=== PATIENT | female | born 1950 | race African-American/Black ===

== ENCOUNTER 2018-05-19 08:14 | Inpatient (IN) | payer OTHER ==
--- NOTE | 2018-05-19 08:30 | PDOC ---
History of Present Illness - General Chief Complaint: Shortness of Breath Stated Complaint: COPD Time Seen by Provider: 05/19/18 08:17 - History of Present Illness Initial Comments: 05/19/18 08:53 The patient is a 67 year old female with a history of COPD, Breast CA, Lung CA, Gastric Ulcers who presents for evaluation of shortness of breath. The patient is accompanied by her who assists in providing the history. He notes that the patient began having worsening difficulty breathing with associated non -productive cough over the past 24 hours prompting them to call EMS. On EMS arrival, the patient had an O2 sat of 92% and proceeded to desaturate to low 80s. She was placed on CPAP and given 1 duoneb and decadron with her Sats coming up to 86%. On arrival to the ED, the patient was tripoding and not following commands. However, her mental status improved after being placed on BIPAP. They otherwise deny fevers, chills, chest pain, nausea, vomiting, abdominal pain, or changes with urination or bowel movements. Past History - Past Medical History Allergies/Adverse Reactions: Allergies Allergy/AdvReac Type Severity Reaction Status Date / Time No Known Allergies Allergy Verified 05/19/18 08:28 Home Medications: Ambulatory Orders Salmeterol/Fluticasone [Advair 250Mcg/50Mcg] 1 inh PO BID 03/16/12 Albuterol 0.083% Nebulizer Bhavana [Ventolin 0.083% Nebulizer Soln -] 1 amp NEB PRN PRN 05/19/18 Amlodipine Besylate [Norvasc -] 5 mg PO DAILY 05/19/18 Cancer: Yes (RIGHT BREAST, RIGHT LUNG) COPD: Yes CHF: No Diabetes: No GI Disorders: Yes HTN: No Hypercholesterolemia: No - Surgical History Abdominal Surgery: Yes (RUPTURED ULCER) - Suicide/Smoking/Psychosocial Hx Smoking Status: Yes Smoking History: Never smoked Have you smoked in the past 12 months: No Number of Cigarettes Smoked Daily: 0 Information on smoking cessation initiated: No Review of Systems - Review of Systems Comments:: 05/19/18 09:15 Constitutional: Fatigue. No fevers, chills, malaise HEENT: No Rhinorrhea, nasal congestion, visual changes Cardiovascular: No chest pain, syncope, palpitations, lightheadedness Respiratory: Cough, SOB. No Hemoptysis, Gastrointestinal: No Abdominal pain, Nausea, Vomiting, Constipation, Diarrhea, Melena Genitourinary: No Dysuria, Frequency, Urgency, Hesitancy, Hematuria, Flank pain Musculoskeletal: No Myalgia, arthralgia Skin: No rashes, itching, bruising, pallor Neurologic: No Headache, Dizziness, Numbness, Weakness, or Tingling Psychiatric: No Hallucinations. No SI or HI *Physical Exam - Vital Signs Last Vital Signs Temp Pulse Resp BP Pulse Ox 98.9 F 126 H 44 H 143/108 H 100 05/19/18 08:16 05/19/18 08:16 05/19/18 08:16 05/19/18 08:16 05/19/18 08:16 - Physical Exam Comments: 05/19/18 09:15 General Appearance: Nourished. In Apparent Distress HEENT: EOMI, YUN. No Pharyngeal Erythema, Tonsillar Exudate, Tonsillar Erythema Neck: No Cervical Lymphadenopathy Respiratory/Chest: Decreased breath sounds bilaterally with poor air movement and expiratory wheezing on exam. Cardiovascular: Regular Rhythm, Tachycardic Rate. No Murmur, Gallops, Rubs Gastrointestinal/Abdominal: Normal Bowel Sounds, Soft. No Guarding, Rebound, Tenderness Musculoskeletal: No CVA Tenderness Extremity: Normal Capillary Refill Integumentary: Normal Color, Dry, Warm Neurologic: Fully Oriented, Alert, Normal Mood/Affect, Normal Response, Moderate Sedation - Procedure Monitoring Vital Signs: Procedure Monitoring Vital Signs Temperature 98.9 F 05/19/18 08:16 Pulse Rate 126 H 05/19/18 08:16 Respiratory Rate 44 H 05/19/18 08:16 Blood Pressure 143/108 H 05/19/18 08:16 O2 Sat by Pulse Oximetry (%) 100 05/19/18 08:16 Heart Score/ECG Review #1 05/19/18 09:16 Sinus Tachycardia Right Atrial Enlargement HR 113 No Acute Ischemic Changes ED Treatment Course - LABORATORY CBC & Chemistry Diagram: 05/19/18 08:18 05/19/18 08:18 Medical Decision Making - Critical Care Time Total Critical Care Time (minutes): 75 Critical Care Statement: The care of this patient involved high complexity decision making to prevent further life threatening deterioration of the patient 's condition and/or to evaluate & treat vital organ system(s) failure or risk of failure. - Medical Decision Making 05/19/18 09:20 The patient is a 67 year old female with a history of COPD, Breast CA, Lung CA, Gastric Ulcers who presents for evaluation of shortness of breath. Differential includes but is not limited to: COPD exacerbation, Pneumonia, ACS, Infectious, Metabolic derangement. Given the patient's history and physical exam, we will obtain a cbc, cmp, troponin, vbg, lactate, blood cultures, ua, urine cultures, chest plain film, ekg. The patient has improved on bipap here in the ED, but continues to require close monitoring. Chest plain film demonstrates bilateral infiltrates as preliminarily read by ED physician. CBC demonstrates a wbc to 22. CMP, ua is unremarkable. VBG demonstrates a ph of 7.10 and pco2 of 99. We will treat the patient with mag, continues nebs, azithromycin, ceftriaxone, iv fluids. The patient will require ICU admission for further monitoring and management. *DC/Admit/Observation/Transfer Diagnosis at time of Disposition: Respiratory distress COPD (chronic obstructive pulmonary disease) Qualifiers: COPD type: unspecified COPD Qualified Code(s): J44.9 - Chronic obstructive pulmonary disease, unspecified Pneumonia Qualifiers: Pneumonia type: due to unspecified organism Laterality: bilateral Lung location : unspecified part of lung Qualified Code(s): J18.9 - Pneumonia, unspecified organism - Discharge Dispostion Condition at time of disposition: Guarded Decision to Admit order: Yes - Referrals - Patient Instructions - Post Discharge Activity
[2018-05-19] MEDS ORDERED: MAGNESIUM SULF 50% (8.12 MEQ/2 ML-1 GM VIAL) IVPB ONE (08:31)
[2018-05-19] MEDS ORDERED: ALBUTEROL SO4 2.5/IPRATROPIUM 0.5 INH SOL 3 ML VIAL.NEB. NEB ONE ×3 (08:31→09:14)
[2018-05-19 08:43] LABS: VENOUS PC02 99.5 mmHg (38-52); VENOUS PH 7.1 (7.32-7.42); VENOUS PO2 90.7 mmHg (28-48)
[2018-05-19 08:45] LABS: URINE APPEARANCE CLEAR; URINE BILIRUBIN NEGATIVE (<2.0 mg/dL); URINE COLOR YELLOW; URINE GLUCOSE (UA) NEGATIVE (NEGATIVE); URINE KETONE TRACE (NEGATIVE); URINE LEUK ESTERASE NEGATIVE (NEGATIVE); URINE NITRITE NEGATIVE (NEGATIVE); URINE PROTEIN 2+ (NEGATIVE); URINE UROBILINOGEN NEGATIVE mg/dL (0.2-1.0)
[2018-05-19 08:47] LABS: BASO % 0.1 % (0-2.0); HEMOGLOBIN 13.4 GM/dL (10.7-15.3); LYMPH % 1.6 % (8-40); MCH 27.4 pg (25.7-33.7); MCHC 32.7 g/dl (32.0-36.0); MEAN CELL VOLUME 83.8 fl (80-96); MEAN PLT VOLUME 10.3 fl (7.5-11.1); MONO % 7.1 % (3.8-10.2); NEUT % 91.2 % (42.8-82.8); PLATELET COUNT 205 K/MM3 (134-434); RBC 4.89 M/mm3 (3.60-5.2); RDW 15.6 % (11.6-15.6); WHITE BLOOD COUNT 22.4 K/mm3 (4.0-10.0)
[2018-05-19 08:50] LABS: URINE MUCUS RARE
[2018-05-19] MEDS ORDERED: AZITHROMYCIN IVPB 500 MG in DEXTROSE 5%-WATER - 250 ML IVPB ONE (08:51)
[2018-05-19] MEDS ORDERED: CEFTRIAXONE 1 GM in DEXTROSE 5%-WATER - 100 ML IVPB ONE (08:51)
--- NOTE | 2018-05-19 08:52 | PDOC ---
Attending Attestation - HPI HPI: 05/19/18 08:58 The patient is a 67-year-old female, with a past medical history of COPD, RT lung and breast CA (not on chemotherapy), who was BIBA for respiratory distress. is at bedside providing the history. He states that the patient was experiencing difficulty breathing and a nonproductive cough for the past day. EMS was called when the patient's symptoms worsened this morning. Allergies: NKA <Venessa Faye - Last Filed: 05/19/18 09:41> - Resident Resident Name: Dhruv Dias - ED Attending Attestation I have performed the following: I have examined & evaluated the patient, The case was reviewed & discussed with the resident, I agree w/resident's findings & plan, Exceptions are as noted - Physicial Exam PE: 05/19/18 09:30 Patient seen and evaluated upon arrival. Patient is somnolent, leaning forward; arousable to sternal rub; follows simple commands. Patient is tachycardic and hypertensive with oxygen saturation of 86% on BiPAP provided by EMS with FiO2 of 100%. Normocephalic, atraumatic No scleral icterus, conjunctivae were pink No JVD Patient is tachypneic and dyspneic; extremely limited air entry bilaterally is noted, with intermittent rhonchi at the bases; Tachycardic, regular Minimal lower extremity edema bilaterally - Critical Care Time Total Critical Care Time: 75 Critical Care Statement: The care of this patient involved high complexity decision making to prevent further life threatening deterioration of the patient 's condition and/or to evaluate & treat vital organ system(s) failure or risk of failure. - Medical Decision Making 05/19/18 09:35 67-year-old female with severe COPD presents with signs and symptoms of acute COPD exacerbation likely precipitated by an acute infectious process. Patient has received a Combivent and 10 mg IV Decadron prior to arrival. We'll administer magnesium sulfate IV; we'll administer Combivent 2, followed by albuterol when necessary and Atrovent every 4 hours. Will obtain chest x-ray. Will obtain EKG. Will obtain blood gas and will place on end-tidal CO2. Will reassess. 05/19/18 09:46 Patient stabilized on BiPAP with FiO2 of 80% maintaining oxygen saturation of 96 %. BiPAP settings or 16/6 with respiratory of 20; chest x-ray reveals bilateral infiltrates; EKG reveals sinus tachycardia with right atrial enlargement without evidence of acute ischemia. VBG reveals severe hypercapnia with pCO2 of 90. CBC reveals significant leukocytosis of 22K with predominance of neutrophils. Will decrease FiO2 to 60%. Will obtain repeat ABG to evaluate for changes in hypercapnia. Will cover with ceftriaxone and Zithromax for community- acquired pneumonia. Will also cover with Tamiflu. We'll consider intubation if pCO2 worsens. Will admit to the ICU. 05/19/18 10:41 PH and pCO2 improving. Patient able to speak short phrases currently. Air entry improved minimally. iv abx adminsitered. Will continue with the current plan. Patient admitted to the ICU. Awaiting transfer. <Hayden Zaldivar - Last Filed: 05/19/18 10:42> Attestations - Attestations 05/19/18 09:01 Documentation prepared by Venessa Faye, acting as medical record transcriber for Hayden Zaldivar MD. <Venessa Faye - Last Filed: 05/19/18 09:41>
[2018-05-19] MEDS ORDERED: AZITHROMYCIN IVPB 500 MG/250 ML BAG IVPB ONE (08:55)
[2018-05-19] MEDS ORDERED: CEFTRIAXONE 1 GM/50 ML BAG ONE (08:56)
[2018-05-19 08:57] LABS: INR 1.25 (0.83-1.09); PROTHROMBIN TIME (PATIENT) 14.8 SEC (9.7-13.0)
[2018-05-19 08:59] LABS: ACTIVATED PTT 32.4 SECONDS (25.2-36.5)
[2018-05-19 09:24] LABS: ALBUMIN 3.8 g/dl (3.4-5.0); ALK PHOS 52 U/L (45-117); ANION GAP 7 MMOL/L (8-16); BILIRUBIN,TOTAL 0.6 mg/dL (0.2-1); BLOOD UREA NITROGEN 16 mg/dL (7-18); CALCIUM 8.6 mg/dL (8.5-10.1); CHLORIDE 101 mmol/L (98-107); CO2 29 mmol/L (21-32); CREATININE 0.7 mg/dL (0.55-1.3); GLUCOSE,RANDOM 190 mg/dL (74-106); POTASSIUM 3.8 mmol/L (3.5-5.1); SGOT/AST 23 U/L (15-37); SGPT/ALT 13 U/L (13-61); SODIUM 136 mmol/L (136-145); TOT PROT 7.4 g/dl (6.4-8.2)
[2018-05-19] MEDS ORDERED: SODIUM CHLORIDE 1,000 ML IV STA (09:33)
[2018-05-19] MEDS ORDERED: OSELTAMIVIR PHOSPHATE 30 MG CAPSULE PO ONE (09:42)
[2018-05-19 09:45] LABS: ANISOCYTOSIS 0; MACROCYTOSIS 0; PLATELET ESTIMATE NORMAL
[2018-05-19] MEDS ORDERED: OSELTAMIVIR PHOSPHATE 75 MG CAPSULE ONE (10:01)
[2018-05-19] MEDS ORDERED: OSELTAMIVIR PHOSPHATE 75 MG CAPSULE PO ONE (10:02)
[2018-05-19 10:30] LABS: ARTERIAL BLOOD GAS PO2 69.6 mmHg (80-100)
[2018-05-19 10:31] LABS: ARTERIAL BLD GAS O2 SATURATION 87.8 % (90-98.9)
[2018-05-19 10:32] LABS: ALLENS TEST POSITIVE
[2018-05-19 10:35] LABS: ARTERIAL BLOOD GAS pH 7.17 (7.35-7.45)
[2018-05-19] MEDS ORDERED: ALBUTEROL SO4 2.5/IPRATROPIUM 0.5 INH SOL 3 ML VIAL.NEB. NEB SCH ×2 (10:45→11:45)
[2018-05-19] MEDS ORDERED: SODIUM CHLORIDE 1,000 ML IV SCH (10:45)
--- NOTE | 2018-05-19 10:51 | CONSULT ---
Consult Consult Specialty:: Pulm/CCM Referred by:: Dr. Zaldivar Reason for Consultation:: Respiratory distress - History of Present Illness Chief Complaint: shortness of breath History of Present Illness: 67F history of COPD, PNA, previous intubation, Breast and Lung Ca, history of gastric ulcer with perforation, presents to the ER BIBA for shortness of breath and difficulty breathing. Patient states for the past couple of days she has had getting progressively worsening shortness of breath. She states she started to develop a cough last night with some minimal sputum production. Patient's and daughter at bedside and provide some history but patient is able to to communicate her history. She was placed in BiPAP in the ER. Patient remains in respiratory distress and is still tripoding despite bronchodilators, O2 support via BiPAP, steroids, and ABx. Per ER patient was lethargic upon arrival which improved with BiPAP. She was found to have bilateral infiltrate on CXR. She denies nausea, vomiting, fevers, chills, chest pain, urinary of GI symptoms. On ABG she was noted to be hypercapneic and hypoxic. ICU called for evaluation due to concern for possible impending intubation. Per patient and family she is a full code. Complaining about discomfort of BiPAP mask. 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 Breast Surgery. Ex-Lap - Alcohol/Substance Use Hx Alcohol Use: No History of Substance Use: reports: None - Smoking History Smoking history: Former smoker (quit about 15 years ago) Have you smoked in the past 12 months: No Aproximately how many cigarettes per day: 0 Home Medications - Allergies Allergies/Adverse Reactions: Allergies Allergy/AdvReac Type Severity Reaction Status Date / Time No Known Allergies Allergy Verified 05/19/18 08:28 - Home Medications Home Medications: Ambulatory Orders Salmeterol/Fluticasone [Advair 250Mcg/50Mcg] 1 inh PO BID 03/16/12 Albuterol 0.083% Nebulizer Bhavana [Ventolin 0.083% Nebulizer Soln -] 1 amp NEB PRN PRN 05/19/18 Amlodipine Besylate [Norvasc -] 5 mg PO DAILY 05/19/18 Family Disease History - Family Disease History Family Disease History: Other: Father (stroke) Review of Systems - Review of Systems Constitutional: reports: Lethargy, Loss of Appetite, Malaise Eyes: reports: No Symptoms HENT: reports: No Symptoms Neck: reports: No Symptoms Cardiovascular: reports: Shortness of Breath Respiratory: reports: SOB, SOB on Exertion Gastrointestinal: reports: No Symptoms Genitourinary: reports: No Symptoms Breasts: reports: See HPI Endocrine: reports: No Symptoms Hematology/Lymphatic: reports: No Symptoms Physical Exam Vital Signs: Vital Signs Temperature 98.9 F 05/19/18 08:41 Pulse Rate 118 H 05/19/18 10:26 Respiratory Rate 16 05/19/18 10:26 Blood Pressure 140/95 05/19/18 10:26 O2 Sat by Pulse Oximetry (%) 95 05/19/18 10:26 Constitutional: Yes: Moderate Distress (respiratory distress) Eyes: Yes: EOM Intact, PERRL HENT: Yes: Atraumatic Neck: Yes: Supple, Trachea Midline Cardiovascular: Yes: Tachycardia Respiratory: Yes: Diminished, On BiPap, Rhonchi (bilaterally) Gastrointestinal: Yes: WNL, Normal Bowel Sounds, Soft. No: Tenderness Edema: No Neurological: Yes: Alert, Oriented Labs: CBC, BMP 05/19/18 08:18 05/19/18 08:18 Imaging - Results Chest X-ray: Report Reviewed, Image Reviewed (left base infiltrate with some effusion.) Cat Scan: Report Reviewed, Image Reviewed (from 02/19/2009) Assessment/Plan 67F with multiple medical problems presents to the ER for shortness of breath found to be in acute hypoxic/hypercapneic respiratory failure secondary to pneumonia. Problem List: Acute hypoxic/hypercapneic Respiratory Failure on BiPAP sepsis secondary to Bilateral PNA COPD exacerbation secondary to pneumonia-history of intubation history of Breast Ca s/p lumpectomy History of Lung Ca s/p right thorocotomy HTN History of perforated gastric ulcer Plan: Admit to ICU for close respiratory and hemodynamic monitoring If patient gets tired from tachypnea may require intubation patient became hypotensive upon arrival to ICU will bolus 30ml/kg and if no response despite IVF may require central line and pressors Solu-Medrol Ceftriaxone/Azithromycin HSQ PPI BCx UCx Sputum Cx NPO while on BiPAP Repeat ABG Keep SPO2 88-92% Urinary antigens for pneumonia ID consult CT chest when HD stable Case discussed with Dr. Harris CCTime 35min
[2018-05-19] MEDS ORDERED: ALBUTEROL SO4 2.5/IPRATROPIUM 0.5 INH SOL 3 ML VIAL.NEB. NEB PRN (10:56)
--- NOTE | 2018-05-19 11:13 | HP ---
CHIEF COMPLAINT: SOB PCP: Dr García in [place] HISTORY OF PRESENT ILLNESS: The patient is a 67 year old female with a significant PMH of COPD on 2 L Oxygen at home, h/o of intubation for COPD, HTN, left sided lung Ca, s/p surgery 2013, right breast Ca, s/p radiation in 2009 BIBA for SOB and cough for few days that got worse yesterday. She reports productive cough since yesterday , bringing up "pinkish" sputum, and worsened shortness of breath overnight. EMS on arrival found her to have AMS, hypoxic to 80s, she was given Duonebs, 10 mg of Decadron and placed on CPAP. Upon arrival to ED, she was given Mag, Tamiflu, duonebs, Ceftriaxone/AZT, BiPap wth improvement of Oxygen Sat to 95% and mental status. History was taken partially from the patient and from her and daughter that were present at bedside. She denied fever, chills, sick contacts, chest pain, N/V, dysuria, no flu vaccine this season. ER course was notable for: (1)Mg, AZT, Ceftriaxone (2)CXR (3)WBC 22.4 PAST MEDICAL HISTORY: as above PAST SURGICAL HISTORY: brain aneurysm-s/p clip 1999, gastric perforation 1981, Social History: Smoking:smoked "a lot", quit 15 years ago Alcohol:occasional alcohol Drugs:no drugs Lives with , 1 daughter Family History: mother: brain aneurysm father: stroke daughter: healthy Allergies No Known Allergies Allergy (Verified 05/19/18 08:28) HOME MEDICATIONS: Home Medications Medication Instructions Recorded Salmeterol/Fluticasone [Advair 1 inh PO BID 03/16/12 250Mcg/50Mcg] Albuterol 0.083% Nebulizer Bhavana 1 amp NEB PRN PRN 05/19/18 [Ventolin 0.083% Nebulizer Soln -] Amlodipine Besylate [Norvasc -] 5 mg PO DAILY 05/19/18 REVIEW OF SYSTEMS CONSTITUTIONAL: Absent: fever, chills, diaphoresis, generalized weakness, malaise HEENT: Absent: rhinorrhea, nasal congestion, throat pain CARDIOVASCULAR: Absent: chest pain, syncope, palpitations, irregular heart rate, lightheadedness , peripheral edema RESPIRATORY: cough, shortness of breath Absent: dyspnea with exertion, orthopnea GASTROINTESTINAL: Absent: abdominal pain, abdominal distension, nausea, vomiting, diarrhea, constipation GENITOURINARY: Absent: dysuria, frequency, urgency, hesitancy, hematuria MUSCULOSKELETAL: Absent: myalgia, arthralgia, SKIN: Absent: rash, itching, pallor ENDOCRINE: Absent: unexplained weight gain, unexplained weight loss NEUROLOGIC: Absent: headache, focal weakness or paresthesias, dizziness PHYSICAL EXAMINATION Vital Signs - 24 hr 05/19/18 05/19/18 05/19/18 08:16 08:30 08:38 Temperature 98.9 F 98.9 F Pulse Rate 126 H 123 H Pulse Rate [ 115 H Left Apical] Respiratory 44 H 26 H Rate Blood Pressure 143/108 H Blood Pressure 118/86 [Right Arm] O2 Sat by Pulse 100 97 99 Oximetry (%) 05/19/18 05/19/18 05/19/18 08:41 09:16 10:26 Temperature 98.9 F Pulse Rate 115 H Pulse Rate [ 117 H 118 H Left Apical] Respiratory 22 H 16 16 Rate Blood Pressure 118/86 Blood Pressure 100/76 140/95 [Right Arm] O2 Sat by Pulse 99 96 95 Oximetry (%) GENERAL: Awake, alert, and fully oriented, in moderate acute distress, sitting on bed, on BiPap. HEAD: Normal with no signs of trauma. EYES: Pupils equal, round and reactive to light, extraocular movements intact, sclera anicteric, conjunctiva clear. EARS, NOSE, THROAT: On Bi-Pap mask NECK: Normal range of motion, supple without lymphadenopathy, JVD, or masses. LUNGS: Diminished breath sounds, +wheezes, rhonchi bilaterally + accessory muscle use. HEART: Regular rate and rhythm, normal S1 and S2 without murmur, rub or gallop. ABDOMEN: Soft, nontender, not distended, normoactive bowel sounds, no guarding. MUSCULOSKELETAL: Normal range of motion at all joints. No bony deformities or tenderness. LOWER EXTREMITIES: 2+ pulses, no peripheral edema. NEUROLOGICAL: Non focal, normal speech, no facial asymmetry. PSYCHIATRIC: Cooperative. Good eye contact. Appropriate mood and affect. SKIN: Warm, dry, normal turgor, no rashes, horizontal scar on right side of the chest, well healed. Laboratory Results - last 24 hr 05/19/18 05/19/18 05/19/18 08:18 08:18 08:18 WBC 22.4 H RBC 4.89 Hgb 13.4 Hct 41.0 MCV 83.8 MCH 27.4 MCHC 32.7 RDW 15.6 Plt Count 205 MPV 10.3 Absolute Neuts (auto) 20.4 H Neutrophils % 91.2 H Neutrophils % (Manual) 61.2 Band Neutrophils % 30.6 Lymphocytes % 1.6 L Lymphocytes % (Manual) 0.0 L Monocytes % 7.1 Monocytes % (Manual) 3 L Eosinophils % 0.0 Eosinophils % (Manual) 0.0 Basophils % 0.1 Basophils % (Manual) 0.0 Myelocytes % (Man) 0 Promyelocytes % (Man) 0 Blast Cells % (Manual) 0 Nucleated RBC % 0 Metamyelocytes 4 H Hypochromia 0 Platelet Estimate Normal Polychromasia 0 Poikilocytosis 0 Anisocytosis 0 Microcytosis 0 Macrocytosis 0 PT with INR 14.80 H INR 1.25 H PTT (Actin FS) 32.4 Anticoagulation Therapy Puncture Site ABG pH ABG pCO2 at Pt Temp ABG pO2 at Pt Temp ABG HCO3 ABG O2 Sat (Measured) ABG O2 Content ABG Base Excess Bj Test VBG pH 7.10 L* POC VBG pCO2 99.5 H* POC VBG pO2 90.7 H Mixed VBG HCO3 29.3 H Methemoglobin O2 Delivery Device Oxygen Flow Rate Vent Mode Vent Rate Mechanical Rate Pressure Support Vent Sodium Potassium Chloride Carbon Dioxide Anion Gap BUN Creatinine Creat Clearance w eGFR Random Glucose Lactic Acid Calcium Total Bilirubin AST ALT Alkaline Phosphatase Troponin I Total Protein Albumin Urine Color Urine Appearance Urine pH Ur Specific [place] Urine Protein Urine Glucose (UA) Urine Ketones Urine Blood Urine Nitrite Urine Bilirubin Urine Urobilinogen Ur Leukocyte Esterase Urine WBC (Auto) Urine RBC (Auto) Urine Mucus Influenza A (Rapid) Influenza B (Rapid) 05/19/18 05/19/18 05/19/18 08:18 08:18 08:30 WBC RBC Hgb Hct MCV MCH MCHC RDW Plt Count MPV Absolute Neuts (auto) Neutrophils % Neutrophils % (Manual) Band Neutrophils % Lymphocytes % Lymphocytes % (Manual) Monocytes % Monocytes % (Manual) Eosinophils % Eosinophils % (Manual) Basophils % Basophils % (Manual) Myelocytes % (Man) Promyelocytes % (Man) Blast Cells % (Manual) Nucleated RBC % Metamyelocytes Hypochromia Platelet Estimate Polychromasia Poikilocytosis Anisocytosis Microcytosis Macrocytosis PT with INR INR PTT (Actin FS) Anticoagulation Therapy Puncture Site ABG pH ABG pCO2 at Pt Temp ABG pO2 at Pt Temp ABG HCO3 ABG O2 Sat (Measured) ABG O2 Content ABG Base Excess Bj Test VBG pH POC VBG pCO2 POC VBG pO2 Mixed VBG HCO3 Methemoglobin O2 Delivery Device Oxygen Flow Rate Vent Mode Vent Rate Mechanical Rate Pressure Support Vent Sodium 136 Potassium 3.8 Chloride 101 Carbon Dioxide 29 Anion Gap 7 L BUN 16 Creatinine 0.7 Creat Clearance w eGFR > 60 Random Glucose 190 H Lactic Acid 1.7 Calcium 8.6 Total Bilirubin 0.6 AST 23 ALT 13 Alkaline Phosphatase 52 Troponin I < 0.02 Total Protein 7.4 Albumin 3.8 Urine Color Yellow Urine Appearance Clear Urine pH 5.0 Ur Specific [place] 1.024 Urine Protein 2+ H Urine Glucose (UA) Negative Urine Ketones Trace H Urine Blood 2+ H Urine Nitrite Negative Urine Bilirubin Negative Urine Urobilinogen Negative Ur Leukocyte Esterase Negative Urine WBC (Auto) 1 Urine RBC (Auto) 2 Urine Mucus Rare Influenza A (Rapid) Influenza B (Rapid) 05/19/18 05/19/18 09:51 09:55 WBC RBC Hgb Hct MCV MCH MCHC RDW Plt Count MPV Absolute Neuts (auto) Neutrophils % Neutrophils % (Manual) Band Neutrophils % Lymphocytes % Lymphocytes % (Manual) Monocytes % Monocytes % (Manual) Eosinophils % Eosinophils % (Manual) Basophils % Basophils % (Manual) Myelocytes % (Man) Promyelocytes % (Man) Blast Cells % (Manual) Nucleated RBC % Metamyelocytes Hypochromia Platelet Estimate Polychromasia Poikilocytosis Anisocytosis Microcytosis Macrocytosis PT with INR INR PTT (Actin FS) Anticoagulation Therapy No Result Required. Puncture Site Left radial ABG pH 7.17 L* ABG pCO2 at Pt Temp 77.0 H* ABG pO2 at Pt Temp 69.6 L ABG HCO3 26.9 H ABG O2 Sat (Measured) 87.8 L ABG O2 Content No Result Required. ABG Base Excess -3.0 L Bj Test Positive VBG pH POC VBG pCO2 POC VBG pO2 Mixed VBG HCO3 Methemoglobin No Result Required. O2 Delivery Device Bipap Oxygen Flow Rate 40% Vent Mode S/t Vent Rate 18 Mechanical Rate Bipap Pressure Support Vent 12/6 Sodium Potassium Chloride Carbon Dioxide Anion Gap BUN Creatinine Creat Clearance w eGFR Random Glucose Lactic Acid Calcium Total Bilirubin AST ALT Alkaline Phosphatase Troponin I Total Protein Albumin Urine Color Urine Appearance Urine pH Ur Specific [place] Urine Protein Urine Glucose (UA) Urine Ketones Urine Blood Urine Nitrite Urine Bilirubin Urine Urobilinogen Ur Leukocyte Esterase Urine WBC (Auto) Urine RBC (Auto) Urine Mucus Influenza A (Rapid) Negative Influenza B (Rapid) Negative ASSESSMENT/PLAN: The patient is a 67 year old female with a significant PMH of COPD on 2 L Oxygen at home, h/o of intubation for COPD, HTN, left sided lung Ca, s/p surgery 2013, right breast Ca, s/p radiation in 2009 BIBA for SOB and cough for few days. Acute hypoxic hypercapnic resp failure: -likely caused by pneumonia, COPD exacerbation, CXR with left sided infiltrate, effusion -continue Duonebs PRN and BRIE -given 10 mg of Decadron by EMS, will continue Solu-medrol 60 mg Q8H -continue AZT/Ceftiaxone -f/u ABG: last one pH 7.17, CO2 77, HCO3 29.3 O2 90 on BiPap 12/6, FiO2 40%, will f/u next one -Flu neg, added Legionella ag, will f/u -sputum culture -f/u blood/urine culture -given 1 L of NS, no more fluids recommended -ID consulted, will f/u recommendations HTN: -continue Norvasc 5 mg daily -ECHO ordered t o assess LV function DVT PPX: Heparin sq F/E/N; no/no changes/NPO for now Dispo: ICU Discussed with attending Dr Gabriel Problem List - Problem (1) COPD (chronic obstructive pulmonary disease) Code(s): J44.9 - CHRONIC OBSTRUCTIVE PULMONARY DISEASE, UNSPECIFIED Qualifiers: COPD type: unspecified COPD Qualified Code(s): J44.9 - Chronic obstructive pulmonary disease, unspecified (2) Pneumonia Code(s): J18.9 - PNEUMONIA, UNSPECIFIED ORGANISM Qualifiers: Pneumonia type: due to unspecified organism Laterality: bilateral Lung location: unspecified part of lung Qualified Code(s): J18.9 - Pneumonia, unspecified organism (3) Respiratory distress Code(s): R06.03 - ACUTE RESPIRATORY DISTRESS Visit type - Emergency Visit Emergency Visit: Yes ED Registration Date: 05/19/18 Care time: The patient presented to the Emergency Department on the above date and was hospitalized for further evaluation of their emergent condition. - New Patient This patient is new to me today: Yes Date on this admission: 05/19/18 - Critical Care Critical Care patient: Yes Total Critical Care Time (in minutes): 40 Critical Care Statement: The care of this patient involved high complexity decision making to prevent further life threatening deterioration of the patient 's condition and/or to evaluate & treat vital organ system(s) failure or risk of failure.
--- NOTE | 2018-05-19 11:14 | PN ---
Teaching Attending Note Name of Resident: Dominik Murphy ATTENDING PHYSICIAN STATEMENT I saw and evaluated the patient. I reviewed the resident's note and discussed the case with the resident. I agree with the resident's findings and plan as documented. SUBJECTIVE: Patient seen and examined in the ICU. Awake and alert on NIPPV. Known COPD due to smoking, PNA, previous intubation, Breast and Lung CA, S/P right lung resection, and history of gastric ulcer with perforation. Admitted via the ER due to worsening shortness of breath for the past few days. Apparently she was lethargic on presentation and placed on NIPPV with improvement in her mental status. Received BD TX, Medrol, Rocephin/Zithromax. No travel history or sick contact. No sick contacts. Intake & Output 05/16/18 05/17/18 05/18/18 05/19/18 23:59 23:59 23:59 23:59 Weight 110 lb Last Vital Signs Temp Pulse Resp BP Pulse Ox 98.9 F 118 H 16 140/95 95 05/19/18 08:41 05/19/18 10:26 05/19/18 10:26 05/19/18 10:26 05/19/18 10:26 Active Medications Albuterol/Ipratropium (Duoneb -) 1 amp NEB Q4H PRN PRN Reason: SHORTNESS OF BREATH Albuterol/Ipratropium (Duoneb -) 1 amp NEB RQID BRIE Amlodipine Besylate (Norvasc -) 5 mg PO DAILY [facility] Heparin Sodium (Porcine) (Heparin -) 5,000 unit SQ BID BRIE Azithromycin (Zithromax 500mg Ivpb (Pre-Docked)) 500 mg in 250 mls @ 250 mls/ hr IVPB DAILY BRIE Ceftriaxone Sodium 1 gm/ (Dextrose) 50 mls @ 100 mls/hr IVPB DAILY BRIE; Protocol Methylprednisolone Sodium Succinate (Solu-Medrol -) 60 mg IVPUSH Q8H-IV BRIE OBJECTIVE: GENERAL: Awake, alert, tachypneic on NIPPV HEAD: Normal with no signs of trauma. EYES: Pupils equal, round and reactive to light, extraocular movements intact, sclera anicteric, conjunctiva clear. No lid lag. EARS, NOSE, THROAT: Ears normal, nares patent, oropharynx clear without exudates. Moist mucous membranes. NECK: Normal range of motion, supple without lymphadenopathy, JVD, or masses. LUNGS: (+) expiratory wheeze, (+) accessory muscle use, on NIPPV HEART: Regular rate and rhythm, normal S1 and S2 without murmur, rub or gallop. ABDOMEN: Soft, nontender, not distended, normoactive bowel sounds, no guarding, no rebound, no masses. No hepatomegaly or splenomegaly. MUSCULOSKELETAL: Normal range of motion at all joints. No bony deformities or tenderness. No CVA tenderness. UPPER EXTREMITIES: 2+ pulses, warm, well-perfused. No cyanosis. No clubbing. No peripheral edema. LOWER EXTREMITIES: 2+ pulses, warm, well-perfused. No calf tenderness. No peripheral edema. NEUROLOGICAL: Non-focal SKIN: Warm, dry, normal turgor, no rashes or lesions noted, normal capillary refill. Laboratory Results - last 24 hr 05/19/18 05/19/18 05/19/18 08:18 08:18 08:18 WBC 22.4 H RBC 4.89 Hgb 13.4 Hct 41.0 MCV 83.8 MCH 27.4 MCHC 32.7 RDW 15.6 Plt Count 205 MPV 10.3 Absolute Neuts (auto) 20.4 H Neutrophils % 91.2 H Neutrophils % (Manual) 61.2 Band Neutrophils % 30.6 Lymphocytes % 1.6 L Lymphocytes % (Manual) 0.0 L Monocytes % 7.1 Monocytes % (Manual) 3 L Eosinophils % 0.0 Eosinophils % (Manual) 0.0 Basophils % 0.1 Basophils % (Manual) 0.0 Myelocytes % (Man) 0 Promyelocytes % (Man) 0 Blast Cells % (Manual) 0 Nucleated RBC % 0 Metamyelocytes 4 H Hypochromia 0 Platelet Estimate Normal Polychromasia 0 Poikilocytosis 0 Anisocytosis 0 Microcytosis 0 Macrocytosis 0 PT with INR 14.80 H INR 1.25 H PTT (Actin FS) 32.4 Anticoagulation Therapy Puncture Site ABG pH ABG pCO2 at Pt Temp ABG pO2 at Pt Temp ABG HCO3 ABG O2 Sat (Measured) ABG O2 Content ABG Base Excess Bj Test VBG pH 7.10 L* POC VBG pCO2 99.5 H* POC VBG pO2 90.7 H Mixed VBG HCO3 29.3 H Methemoglobin O2 Delivery Device Oxygen Flow Rate Vent Mode Vent Rate Mechanical Rate Pressure Support Vent Sodium Potassium Chloride Carbon Dioxide Anion Gap BUN Creatinine Creat Clearance w eGFR Random Glucose Lactic Acid Calcium Total Bilirubin AST ALT Alkaline Phosphatase Troponin I Total Protein Albumin Urine Color Urine Appearance Urine pH Ur Specific [place] Urine Protein Urine Glucose (UA) Urine Ketones Urine Blood Urine Nitrite Urine Bilirubin Urine Urobilinogen Ur Leukocyte Esterase Urine WBC (Auto) Urine RBC (Auto) Urine Mucus Influenza A (Rapid) Influenza B (Rapid) 05/19/18 05/19/18 05/19/18 08:18 08:18 08:30 WBC RBC Hgb Hct MCV MCH MCHC RDW Plt Count MPV Absolute Neuts (auto) Neutrophils % Neutrophils % (Manual) Band Neutrophils % Lymphocytes % Lymphocytes % (Manual) Monocytes % Monocytes % (Manual) Eosinophils % Eosinophils % (Manual) Basophils % Basophils % (Manual) Myelocytes % (Man) Promyelocytes % (Man) Blast Cells % (Manual) Nucleated RBC % Metamyelocytes Hypochromia Platelet Estimate Polychromasia Poikilocytosis Anisocytosis Microcytosis Macrocytosis PT with INR INR PTT (Actin FS) Anticoagulation Therapy Puncture Site ABG pH ABG pCO2 at Pt Temp ABG pO2 at Pt Temp ABG HCO3 ABG O2 Sat (Measured) ABG O2 Content ABG Base Excess Bj Test VBG pH POC VBG pCO2 POC VBG pO2 Mixed VBG HCO3 Methemoglobin O2 Delivery Device Oxygen Flow Rate Vent Mode Vent Rate Mechanical Rate Pressure Support Vent Sodium 136 Potassium 3.8 Chloride 101 Carbon Dioxide 29 Anion Gap 7 L BUN 16 Creatinine 0.7 Creat Clearance w eGFR > 60 Random Glucose 190 H Lactic Acid 1.7 Calcium 8.6 Total Bilirubin 0.6 AST 23 ALT 13 Alkaline Phosphatase 52 Troponin I < 0.02 Total Protein 7.4 Albumin 3.8 Urine Color Yellow Urine Appearance Clear Urine pH 5.0 Ur Specific [place] 1.024 Urine Protein 2+ H Urine Glucose (UA) Negative Urine Ketones Trace H Urine Blood 2+ H Urine Nitrite Negative Urine Bilirubin Negative Urine Urobilinogen Negative Ur Leukocyte Esterase Negative Urine WBC (Auto) 1 Urine RBC (Auto) 2 Urine Mucus Rare Influenza A (Rapid) Influenza B (Rapid) 05/19/18 05/19/18 09:51 09:55 WBC RBC Hgb Hct MCV MCH MCHC RDW Plt Count MPV Absolute Neuts (auto) Neutrophils % Neutrophils % (Manual) Band Neutrophils % Lymphocytes % Lymphocytes % (Manual) Monocytes % Monocytes % (Manual) Eosinophils % Eosinophils % (Manual) Basophils % Basophils % (Manual) Myelocytes % (Man) Promyelocytes % (Man) Blast Cells % (Manual) Nucleated RBC % Metamyelocytes Hypochromia Platelet Estimate Polychromasia Poikilocytosis Anisocytosis Microcytosis Macrocytosis PT with INR INR PTT (Actin FS) Anticoagulation Therapy No Result Required. Puncture Site Left radial ABG pH 7.17 L* ABG pCO2 at Pt Temp 77.0 H* ABG pO2 at Pt Temp 69.6 L ABG HCO3 26.9 H ABG O2 Sat (Measured) 87.8 L ABG O2 Content No Result Required. ABG Base Excess -3.0 L Bj Test Positive VBG pH POC VBG pCO2 POC VBG pO2 Mixed VBG HCO3 Methemoglobin No Result Required. O2 Delivery Device Bipap Oxygen Flow Rate 40% Vent Mode S/t Vent Rate 18 Mechanical Rate Bipap Pressure Support Vent 12/6 Sodium Potassium Chloride Carbon Dioxide Anion Gap BUN Creatinine Creat Clearance w eGFR Random Glucose Lactic Acid Calcium Total Bilirubin AST ALT Alkaline Phosphatase Troponin I Total Protein Albumin Urine Color Urine Appearance Urine pH Ur Specific [place] Urine Protein Urine Glucose (UA) Urine Ketones Urine Blood Urine Nitrite Urine Bilirubin Urine Urobilinogen Ur Leukocyte Esterase Urine WBC (Auto) Urine RBC (Auto) Urine Mucus Influenza A (Rapid) Negative Influenza B (Rapid) Negative ASSESSMENT/PLAN: Acute Respiratory Failure on NIPPV Bilateral PNA COPD Previous intubation History of Breast and Lung CA, S/P right lung resection History of gastric ulcer with perforation. NIPPV support Follow ABG BD TX standing and PRN Medrol ABX coverage VTE prophylaxis Aspiration precautions Check sputum Check urinary antigen ICU monitoring for tenuous respiratory status Dr Harris Critical care time spent in reviewing chart, evaluating patient and formulating plan - 36 minutes.
[2018-05-19] MEDS ORDERED: ALBUTEROL SO4 0.083% IH SOL 2.5 MG/3 ML VIAL.NEB. NEB PRN (11:33)
--- NOTE | 2018-05-19 11:45 | EKG ---
Test Reason : Blood Pressure : / mmHG Vent. Rate : 113 BPM Atrial Rate : 113 BPM P-R Int : 144 ms QRS Dur : 082 ms QT Int : 316 ms P-R-T Axes : 081 066 073 degrees QTc Int : 433 ms POOR DATA QUALITY, INTERPRETATION MAY BE ADVERSELY AFFECTED SINUS TACHYCARDIA RIGHT ATRIAL ENLARGEMENT BORDERLINE ECG WHEN COMPARED WITH ECG OF 20-FEB-2009 08:57, NO SIGNIFICANT CHANGE WAS FOUND Confirmed by SAL TAYLOR, NICOLE ([id number]) on 05/19/2018 11:45:12 AM Referred By: Confirmed By:NICOLE HUANG MD
[2018-05-19] MEDS: ALBUTEROL SO4 2.5/IPRATROPIUM 0.5 INH SOL 3 ML VIAL.NEB. NEB SCH ×3 (12:00→21:15)
[2018-05-19] MEDS ORDERED: LACTATED RINGERS SOLUTION 1,000 ML/1,000 ML INFUS.BAG IV ONE (12:12)
[2018-05-19] MEDS: PANTOPRAZOLE SODIUM 40 MG VIAL IVPUSH SCH (12:35)
[2018-05-19] MEDS: methylPREDNISolone NA SUCC 40 MG/1 ML VIAL IVPUSH SCH ×2 (12:36→18:45)
--- NOTE | 2018-05-19 13:06 | PN ---
Teaching Attending Note Name of Resident: Conchita Dash ATTENDING PHYSICIAN STATEMENT I saw and evaluated the patient. I reviewed the resident's note and discussed the case with the resident. I agree with the resident's findings and plan as documented. SUBJECTIVE: The patient is a 67yo female with a significant PMHx of COPD on 2 L home Oxygen at home, hx of previous intubation , HTN, left sided lung Ca s/p surgery 2013 and right breast Ca, s/p radiation in 2009, on arrival was found to have SOB and cough ,started few days prior. In Ed. patient was placed on Bipap with RR of 30's. OBJECTIVE: Vital Signs Temperature 97.3 F L 05/19/18 11:07 Pulse Rate 112 H 05/19/18 12:18 Respiratory Rate 23 H 05/19/18 12:18 Blood Pressure 80/57 L 05/19/18 12:18 O2 Sat by Pulse Oximetry (%) 95 05/19/18 11:07 GENERAL: AAOx3 , in moderate distress, on BiPap. HEAD: AT/NC with no signs of trauma. EYES: Pupils equal, round and reactive to light, extraocular movements intact, sclera anicteric, conjunctiva clear. EARS, NOSE, THROAT: On Bi-Pap NECK: Normal range of motion, supple , no JVD. LUNGS: decreased breath sounds, positive for wheezes, rhonchi bilaterally , positive for accessory muscle use. HEART: Regular rate and rhythm, normal S1 and S2 without murmur, rub or gallop. ABDOMEN: Soft, nontender, not distended, normoactive bowel sounds, no guarding. EXTREMITIES: 2+ pulses, no peripheral edema. NEUROLOGICAL: Non focal, normal speech, no facial asymmetry. PSYCHIATRIC: Cooperative. Good eye contact. Appropriate mood and affect. SKIN: Warm, dry, normal turgor, no rashes appreciated. CBCD WBC 22.4 K/mm3 (4.0-10.0) H 05/19/18 08:18 RBC 4.89 M/mm3 (3.60-5.2) 05/19/18 08:18 Hgb 13.4 GM/dL (10.7-15.3) 05/19/18 08:18 Hct 41.0 % (32.4-45.2) 05/19/18 08:18 MCV 83.8 fl (80-96) 05/19/18 08:18 MCHC 32.7 g/dl (32.0-36.0) 05/19/18 08:18 RDW 15.6 % (11.6-15.6) 05/19/18 08:18 Plt Count 205 K/MM3 (134-434) 05/19/18 08:18 MPV 10.3 fl (7.5-11.1) 05/19/18 08:18 CMP Sodium 136 mmol/L (136-145) 05/19/18 08:18 Potassium 3.8 mmol/L (3.5-5.1) 05/19/18 08:18 Chloride 101 mmol/L (98-107) 05/19/18 08:18 Carbon Dioxide 29 mmol/L (21-32) 05/19/18 08:18 Anion Gap 7 MMOL/L (8-16) L 05/19/18 08:18 BUN 16 mg/dL (7-18) 05/19/18 08:18 Creatinine 0.7 mg/dL (0.55-1.3) 05/19/18 08:18 Creat Clearance w eGFR > 60 (>60) 05/19/18 08:18 Random Glucose 190 mg/dL (74-106) H 05/19/18 08:18 Calcium 8.6 mg/dL (8.5-10.1) 05/19/18 08:18 Total Bilirubin 0.6 mg/dL (0.2-1) 05/19/18 08:18 AST 23 U/L (15-37) 05/19/18 08:18 ALT 13 U/L (13-61) 05/19/18 08:18 Alkaline Phosphatase 52 U/L (45-117) 05/19/18 08:18 Total Protein 7.4 g/dl (6.4-8.2) 05/19/18 08:18 Albumin 3.8 g/dl (3.4-5.0) 05/19/18 08:18 CARDIAC ENZYMES Troponin I < 0.02 ng/ml (0.00-0.05) 05/19/18 08:18 Current Medications Generic Name Dose Route Start Last Admin Trade Name Freq PRN Reason Stop Dose Admin Albuterol Sulfate 1 amp 05/19/18 11:35 Ventolin 0.083% Nebulizer Soln - NEB Q4H PRN SHORT OF BREATH/WHEEZING Albuterol/Ipratropium 1 amp 05/19/18 12:00 Duoneb - NEB RQID BRIE Amlodipine Besylate 5 mg 05/20/18 10:00 Norvasc - PO DAILY BRIE Chlorhexidine Gluconate 1 applic 05/19/18 22:00 Hibiclens For Decolonization - TP HS BRIE Heparin Sodium (Porcine) 5,000 unit 05/19/18 14:00 Heparin - SQ TID BRIE Azithromycin 500 mg in 250 mls @ 250 mls/hr 05/20/18 10:00 Zithromax 500mg Ivpb (Pre-Docked) IVPB DAILY BRIE Ceftriaxone Sodium 1 gm/ 50 mls @ 100 mls/hr 05/20/18 10:00 Dextrose IVPB DAILY [facility] Protocol Lactated Ringer's 1,000 ml in 1,000 mls @ 1,000 mls/hr 05/19/18 12:12 12:35 Lactated Ringers Solution IV 05/19/18 13:11 1,000 mls/hr ONCE ONE Administration Methylprednisolone Sodium Succinate 60 mg 05/19/18 11:00 05/19/18 12:36 Solu-Medrol - IVPUSH 60 mg Q8H-IV BRIE Administration Mupirocin 1 applic 05/19/18 22:00 Bactroban Ointment (For Decolonization) - NS 05/24/18 21:59 BID BRIE Pantoprazole Sodium 40 mg 05/19/18 11:45 05/19/18 12:35 Protonix Iv IVPUSH 40 mg DAILY BRIE Administration Home Medications Medication Instructions Recorded Salmeterol/Fluticasone [Advair 1 inh PO BID 03/16/12 250Mcg/50Mcg] Albuterol 0.083% Nebulizer Bhavana 1 amp NEB PRN PRN 05/19/18 [Ventolin 0.083% Nebulizer Soln -] Amlodipine Besylate [Norvasc -] 5 mg PO DAILY 05/19/18 ABG Results ABG pH 7.17 (7.35-7.45) L* 05/19/18 09:51 ABG pCO2 at Pt Temp 77.0 mmHg (35-45) H* 05/19/18 09:51 ABG pO2 at Pt Temp 69.6 mmHg (80-100) L 05/19/18 09:51 ABG HCO3 26.9 meq/L (22-26) H 05/19/18 09:51 ABG O2 Sat (Measured) 87.8 % (90-98.9) L 05/19/18 09:51 ABG O2 Content No Result Required. 05/19/18 09:51 ABG Base Excess -3.0 meq/l (-2-2) L 05/19/18 09:51 CXR: left base infiltrate with effusion. ASSESSMENT AND PLAN: The patient is a 67 year old female with a significant PMHx of COPD on 2 L home Oxygen at home with previous hx of intubation, HTN, left sided lung Ca and right sided breast cancer s/p Rtx , presented with SOB and cough x few days. patient was placed on Bipap in ED, and admitted to icu for further care. # Acute hypoxic hypercapnic respiratory failure: Due to Pneumonia and COPD exacerbation on IV antibiotics continue. # Acute COPD exacerbation : on Duonebs, solu-medrol IV, # Acute pneumonia with left sided effusion: on IV antibiotic Rocephin/zithromax IV , ID on the case.Follow urinary antigen for strept. pneumo and legionella. #HTN: Hold Norvasc 5 mg since hypotensive . DVT PPX:Heparin sq GI Px: Protonix Dispo:ICU
[2018-05-19] MEDS ORDERED: RAPID SEQUENCE INTUBATION KIT NR ONE (13:22)
[2018-05-19] MEDS ORDERED: MIDAZOLAM HCL 5 MG/1 ML Single Dose Vial ONE (13:25)
--- NOTE | 2018-05-19 13:26 | PN ---
Progress Note (short form) - Note Progress Note: ID consult dictated imp/reccd acute hypoxemic respiratory failure bilateral pneumonia copd exacerbation history of lung cancer history of breast cancer pcp dr bullock in the [place] failing bipap tripoding and sob hypoxic received ceftriaxone, zithromax and tamiflu in ED will require intubation spoke with he thinks she has been taking levaquin at home (7 of 10 pills completed) started steroids this am intubation and mechanical ventilation zosyn/zithromax urinary antigen for pneumonia, suctioned sputum for culture vancomycin 750 mg q12h will d/c zithromax if legionella antigen is negative Problem List - Problems (1) Acute hypoxemic respiratory failure Code(s): J96.01 - ACUTE RESPIRATORY FAILURE WITH HYPOXIA (2) Bilateral pneumonia Code(s): J18.9 - PNEUMONIA, UNSPECIFIED ORGANISM (3) COPD exacerbation Code(s): J44.1 - CHRONIC OBSTRUCTIVE PULMONARY DISEASE W (ACUTE) EXACERBATION
[2018-05-19] MEDS ORDERED: PROPOFOL 1,000,000 MCG/100 ML VIAL ONE (13:30)
[2018-05-19] MEDS ORDERED: SUCCINYLCHOLINE CHLORIDE 200 MG/10 ML VIAL IVPUSH ONE (13:33)
[2018-05-19] MEDS ORDERED: PROPOFOL 200 MG/20 ML VIAL IVPUSH ONE (13:34)
[2018-05-19] MEDS: VANCOMYCIN 750 MG in DEXTROSE 5%-WATER - 250 ML IVPB SCH (13:53)
[2018-05-19] MEDS: PROPOFOL 1,000,000 MCG/100 ML VIAL IVPB SCH (13:56)
[2018-05-19] MEDS ORDERED: HEPARIN NA (PORCINE) 5,000 UNITS/ML 1ML VIAL SQ SCH ×2 (14:00→22:00)
--- NOTE | 2018-05-19 14:05 | PN ---
Progress Note (short form) - Note Progress Note: [facility] Pt with increasing lethargy, respiratory distress with accessory muscle use. ABG showing acute on chronic respiratory acidosis. Decision made to intubate. Post intubation hypotension improved with phenylephrine IVP. Vital Signs Period Temp Pulse Resp BP Sys/Sawyer Pulse Ox Last 24 Hr 97.3 F-98.9 F 112-126 16-44 80-211/57-166 91-100 Intake & Output 05/16/18 05/17/18 05/18/18 05/19/18 23:59 23:59 23:59 23:59 Weight 49.895 kg Gen: intubated, sedated Heart: tachycardic, regular Lung: distant breath sounds Abd: soft, nontender Ext: no edema CBC, BMP 05/19/18 08:18 05/19/18 08:18 ABG Results ABG pH 7.17 (7.35-7.45) L* 05/19/18 09:51 ABG pCO2 at Pt Temp 77.0 mmHg (35-45) H* 05/19/18 09:51 ABG pO2 at Pt Temp 69.6 mmHg (80-100) L 05/19/18 09:51 ABG HCO3 26.9 meq/L (22-26) H 05/19/18 09:51 ABG O2 Sat (Measured) 87.8 % (90-98.9) L 05/19/18 09:51 ABG O2 Content No Result Required. 05/19/18 09:51 ABG Base Excess -3.0 meq/l (-2-2) L 05/19/18 09:51 Active Medications Albuterol Sulfate (Ventolin 0.083% Nebulizer Soln -) 1 amp NEB Q4H PRN PRN Reason: SHORT OF BREATH/WHEEZING Albuterol/Ipratropium (Duoneb -) 1 amp NEB RQID BRIE Amlodipine Besylate (Norvasc -) 5 mg PO DAILY BRIE Chlorhexidine Gluconate (Hibiclens For Decolonization -) 1 applic TP HS BRIE Heparin Sodium (Porcine) (Heparin -) 5,000 unit SQ TID BRIE Azithromycin (Zithromax 500mg Ivpb (Pre-Docked)) 500 mg in 250 mls @ 250 mls/ hr IVPB DAILY BRIE Piperacillin Sod/Tazobactam (Sod 3.375 gm/ Dextrose) 50 mls @ 100 mls/hr IVPB Q8H-IV BRIE; Protocol Vancomycin HCl 750 mg/ (Dextrose) 250 mls @ 250 mls/hr IVPB Q12H BRIE; Protocol Last Admin: 05/19/18 13:53 Dose: 250 mls/hr Propofol (Diprivan -) 1,000,000 mcg in 100 mls @ 1.497 mls/hr IVPB TITR BRIE; Protocol Last Admin: 05/19/18 13:56 Dose: Not Given Fentanyl 500 mcg/ Dextrose 100 mls @ 10 mls/hr IVPB TITR BRIE Midazolam HCl 100 mg/ Sodium (Chloride) 100 mls @ 1 mls/hr IVPB TITR BRIE; Protocol Methylprednisolone Sodium Succinate (Solu-Medrol -) 60 mg IVPUSH Q8H-IV BRIE Last Admin: 05/19/18 12:36 Dose: 60 mg Mupirocin (Bactroban Ointment (For Decolonization) -) 1 applic NS BID [facility] Stop: 05/24/18 21:59 Pantoprazole Sodium (Protonix Iv) 40 mg IVPUSH DAILY [facility] Last Admin: 05/19/18 12:35 Dose: 40 mg Propofol (Diprivan -) 100 mcg IVPUSH ONCE ONE Stop: 05/19/18 13:35 Last Admin: 05/19/18 13:30 Dose: 100 mcg Succinylcholine Chloride (Quelicin -) 50 mg IVPUSH ONCE ONE Stop: 05/19/18 13:34 Last Admin: 05/19/18 13:30 Dose: 50 mg A/P Acute on Chronic Hypoxic and Hypercapneic Respiratory Failure Pneumonia Severe Sepsis ARDS Acute COPD Exacerbation Lactic Acidosis h/o Lung Cancer - pt intubated - low tidal volume ventilation 6cc/kg/IBW - keep Pplat <30 - taper Fio2 to keep Spo2 >90% - check ABG - continue antibiotics - f/u cultures - IV medrol - inhaled bronchodilators - IVF resuscitation - DVT/GI prophylaxis - continue ICU monitoring additional critical care time spent in reviewing chart, evaluating patient and formulating plan 45 min not including procedures
[2018-05-19] MEDS ORDERED: fentaNYL CITRATE 250 MCG/5 ML VIAL ONE ×2 (14:07→14:08)
--- NOTE | 2018-05-19 14:08 | PROC ---
<Shiva Mcintyre - Last Filed: 05/19/18 14:04> Intubation - Intubation Reason for Intubation: Respiratory Insufficiency, Respiratory Failure, Ventilatory Failure Time of Intubation: 13:40 Intubation Method: orotracheal Blade used: Mac Tube Size (cm): 7.5 Tube position @ lip (cm): 22 Tube position confirmed by: Direct visualization, CO2 detector, Chest x-ray, Breath sounds Breath Sounds after Intubation: equal Post Intubation Xray: Yes Remarks: Uncomplicated procedure. Airway easily visualized. Mallampati II. First pass success via direct visualization. <Mark Carrera MD - Last Filed: 05/20/18 09:28> Procedure Note Procedure: I supervised and was present during the entire procedure. Mark Carrera MD
[2018-05-19] MEDS: FENTANYL INJECTION 500 MCG in DEXTROSE 5%-WATER - 90 ML IVPB SCH ×2 (14:19→14:31)
[2018-05-19] MEDS ORDERED: PIPERACILLIN/TAZOBACTAM 3.375 GM VIAL IVPB ONE ×2 (14:22→18:43)
[2018-05-19] MEDS ORDERED: DEXTROSE 5%-WATER - 50 ML IVPB ONE ×2 (14:22→18:43)
[2018-05-19] MEDS: PIPERACILLIN/TAZOB 3.375 GM 3.375 GM in DEXTROSE 5%-WATER - 50 ML IVPB SCH ×2 (14:25→18:45)
--- NOTE | 2018-05-19 14:30 | CONS ---
DATE OF CONSULTATION: 05/19/2018 REQUESTING PHYSICIAN: The hospitalist service. HISTORY OF PRESENT ILLNESS: This is a 67-year-old woman, who presented to the emergency room this morning with cough nonproductive for 24 hours and acute onset of shortness of breath. She had worsened breathing overnight. When EMS arrived at her home this morning, she was confused, hypoxic to the 80s. She was given Duo-Nebs, some steroids, and placed on CPAP. In the ER, she was given Tamiflu, ceftriaxone, Zithromax, and BiPAP with improvement of her O2 saturation. She was transferred to the ICU where she is currently acutely short of breath despite the BiPAP. She is hypoxic as well as hypotensive. She is alert. She says she just started oral steroids this morning. Her showed me a bottle of Levaquin of which it looks like she has taken 7 days. She was also noted in the ER to have a white count of 22.4. PAST MEDICAL HISTORY: Notable for COPD. She is on 2 L of oxygen at home. She has been intubated in the past for COPD. She has a history of hypertension, left lung cancer. She has a history of right breast cancer. She is status post a left partial lobectomy in 2013. She has had radiation of her breast in 2009. She had a brain aneurysm that was clipped in 1999 and had a gastric perforation in 1981. FAMILY HISTORY: Notable for brain aneurysm in her mother, stroke in her father. SOCIAL HISTORY: She lives with her spouse. There is no history of any substance use. She quit smoking 15 years ago. ALLERGIES: She has no known drug allergies. MEDICATIONS: Her medications at home include Advair, Ventolin, and Norvasc. REVIEW OF SYSTEMS: Notable for nonproductive cough and shortness of breath. IMMUNIZATIONS: Of note, she did not receive the influenza vaccine. PHYSICIAN: She is followed by Dr. García in the [place]. PHYSICAL EXAMINATION General: She is quite uncomfortable. She is sitting up . Vital signs: Her temperature is 97.3, pulse of 112, blood pressure 80/57, respiratory rate 23, she is saturating 85% on BiPAP. HEENT: She is normocephalic. Her eyes are anicteric. I could not look in her mouth as was distressed. Lungs: Had distant heart sounds, diminished at the bases. Heart: Tachycardic. Abdomen: Soft. She has no abdominal pain. She has a well-healed surgical scar in her left back. Extremities: Without edema. DIAGNOSTIC DATA: White count is 22.4, hemoglobin 13.5, platelets are 205. INR is 1.25. Blood gas this morning pH was 7.17 with pCO2 of 77, and pO2 of 69. Chemistries are notable for BUN 16, creatinine 7.7. Normal LFTs. Lactic acid 1.7. Urinalysis is negative. Influenza screen is negative. Blood and urine cultures are pending. SUMMARY: 1. This is a 67-year-old woman in acute respiratory failure. Chest x-ray shows bilateral pneumonia in the setting of chronic obstructive pulmonary disease exacerbation with history of lung cancer, partial lobectomy, and history of breast cancer. She will require intubation. I spoke to her . She has been taking Levaquin at home and started steroids this morning. Given that, I would suggest we treat her with Zosyn and Zithromax. Urinary antigen for pneumonia. Suction sputum for culture. Vancomycin 750 q.12. Would stop the Zithromax if the legionella antigen is negative. 2. History of chronic obstructive pulmonary disease with chronic obstructive pulmonary disease exacerbation and respiratory failure in the past. 3. History of lung sounds. 4. Breast cancer. Over 40 minutes were spent in the care of this critically ill patient. DAILY HILL M.D. [id number]
[2018-05-19] MEDS ORDERED: MIDAZOLAM 100 MG/100 ML MG IVPB ONE (14:50)
[2018-05-19] MEDS: MIDAZOLAM 100 MG in SODIUM CHLORIDE 100 ML IVPB SCH (14:51)
[2018-05-19] MEDS: PHENYLEPHRINE HCL 20,000 MCG in SODIUM CHLORIDE 248 ML IVPB SCH (15:00)
[2018-05-19] MEDS ORDERED: LACTATED RINGERS SOLUTION 1000 ML INFUS.BAG IV ONE (15:08)
[2018-05-19 15:41] LABS: ARTERIAL BLD GAS O2 SATURATION 98.3 % (90-98.9); ARTERIAL BLOOD GAS PCO2 55.8 mmHg (35-45); ARTERIAL BLOOD GAS pH 7.23 (7.35-7.45)
[2018-05-19 15:42] LABS: ALLENS TEST POSITIVE
--- NOTE | 2018-05-19 17:44 | PROC ---
Central Line Insertion Indication: CVP Monitoring, Poor Venous Access, Sepsis, Vasopressor Risks and Benefits Explained: Yes Consent on Chart: Yes Central Line: Triple Lumen Catheter Anesthesia: 1% Lidocaine Sterile Technique: Yes Ultrasound Guided Assistance: Yes Position: Right Internal Jugular Post Insertion: Yes: Bilateral Breath Sounds, Bilateral Chest Expansion, Chest X-Ray Ordered Sterile Dressing Applied: Yes Remarks: no complication, one stick, dr martinez was informed and Dr lauren , will follow up CXR
[2018-05-19] MEDS ORDERED: NOREPINEPHRINE BITARTRATE 8,000 MCG in DEXTROSE 5%-WATER - 492 ML IV SCH (18:00)
[2018-05-19] MEDS: NOREPINEPHRINE BITARTRATE 8,000 MCG in DEXTROSE 5%-WATER - 492 ML IV SCH (18:01)
[2018-05-19] MEDS ORDERED: NOREPINEPHRINE BITARTRATE 4 MG/4 ML ML IV ONE (18:03)
--- NOTE | 2018-05-19 19:10 | ECHO ---
Version: 1 Name: EMANUEL MERRITT Exam: Adult Echocardiogram Study Date: 05/19/2018, 2:04 PM Age: 67 Years MMode/2D Measurements & Calculations ACS: 1.42 cm Ao root diam: 2.6 cm Doppler Measurements & Calculations PI end-d mayte: 164.9 cm/sec TR max mayte: 245.1 cm/sec TR max P.0 mmHg Procedure A two-dimensional transthoracic echocardiogram with color flow and Doppler was performed. A two-dime nsional transthoracic echocardiogram with color flow and Doppler was performed in limited views only. The st udy was technically difficult with many images being suboptimal in quality. Images were not obtained from al l of the standard acoustic windows due to the limited scope of the study. Left Ventricle The left ventricle is not well visualized. Due to the poor quality of the echocardiogram, an assessm ent of left ventricular ejection fraction cannot be made. Regional wall motion abnormalities cannot be excl uded due to limited visualization. Right Ventricle The right ventricle is not well visualized. The right ventricle is moderate to severely dilated. The right ventricular systolic function is moderate to severely reduced. Atria The left atrium is not well visualized. Right atrium not well visualized. Mitral Valve The mitral valve is not well visualized. Tricuspid Valve There is mild tricuspid valve thickening. There is no tricuspid stenosis. There is moderate tricuspi d regurgitation. Right ventricular systolic pressure is elevated at 30-40mmHg. Aortic Valve The aortic valve is not well visualized. Hemodynamically significant valvular aortic stenosis cannot be excluded. Pulmonic Valve The pulmonic valve is not well visualized. There is no pulmonic valvular stenosis. Moderate pulmonic valvular regurgitation. Great Vessels The aortic root is not well visualized. Pericardium/Pleura There is no pericardial effusion. Summary Statements There is moderate tricuspid regurgitation. Right ventricular systolic pressure is elevated at 30-40mmHg. Moderate pulmonic valvular regurgitation. A two-dimensional transthoracic echocardiogram with color flow and Doppler was performed in limited views only. The study was technically difficult with many images being suboptimal in quality. Images were not obtained from all of the standard acoustic windows due to the limited scope of the s tudy. The left ventricle is not well visualized. Due to the poor quality of the echocardiogram, an assessment of left ventricular ejection fraction c annot be made. Regional wall motion abnormalities cannot be excluded due to limited visualization. The right ventricle is not well visualized. The right ventricle is moderate to severely dilated. The right ventricular systolic function is moderate to severely reduced. The left atrium is not well visualized. Right atrium not well visualized. The mitral valve is not well visualized. The aortic valve is not well visualized. MD Sree Lamb 05/19/2018, 7:10 PM Ordering Physician: Conchita Guillermo Referring Physician: Aura Willis Performed By: Lesly Armas
[2018-05-19] MEDS ORDERED: ENOXAPARIN NA (PORCINE) 60 MG/0.6 ML DISP.SYRIN SQ SCH ×2 (19:30→21:03)
[2018-05-19] MEDS ORDERED: PT OWN MED DRAWER 7, Y5N ONE (21:09)
[2018-05-19] MEDS: ENOXAPARIN NA (PORCINE) 60 MG/0.6 ML DISP.SYRIN SQ SCH (21:18)
[2018-05-19] MEDS: MUPIROCIN 2% TOPICAL OINTMENT FOR DECOLONIZATION NS SCH (21:19)
[2018-05-19] MEDS: OSELTAMIVIR PHOSPHATE 75 MG CAPSULE GT SCH (21:20)
[2018-05-19] MEDS: CHLORHEXIDINE GLUCONATE 4% CLEANSER FOR DECOLONIZATION TP SCH (21:20)
[2018-05-20] MEDS ORDERED: DEXTROSE 5%-WATER - 50 ML IVPB ONE ×4 (01:13→22:54)
[2018-05-20] MEDS ORDERED: PIPERACILLIN/TAZOBACTAM 3.375 GM VIAL IVPB ONE ×4 (01:13→22:54)
[2018-05-20] MEDS: PIPERACILLIN/TAZOB 3.375 GM 3.375 GM in DEXTROSE 5%-WATER - 50 ML IVPB SCH ×3 (01:17→17:11)
[2018-05-20] MEDS: VANCOMYCIN 750 MG in DEXTROSE 5%-WATER - 250 ML IVPB SCH ×2 (01:18→15:12)
[2018-05-20] MEDS: methylPREDNISolone NA SUCC 40 MG/1 ML VIAL IVPUSH SCH ×3 (01:18→17:11)
[2018-05-20 05:59] LABS: BASO % 0.2 % (0-2.0); HEMOGLOBIN 11.8 GM/dL (10.7-15.3); LYMPH % 1.8 % (8-40); MCH 26.4 pg (25.7-33.7); MCHC 31.2 g/dl (32.0-36.0); MEAN CELL VOLUME 84.7 fl (80-96); MEAN PLT VOLUME 9.9 fl (7.5-11.1); MONO % 7.1 % (3.8-10.2); NEUT % 90.9 % (42.8-82.8); PLATELET COUNT 149 K/MM3 (134-434); RBC 4.48 M/mm3 (3.60-5.2); RDW 15.4 % (11.6-15.6); WHITE BLOOD COUNT 14.7 K/mm3 (4.0-10.0)
[2018-05-20 06:28] LABS: ALBUMIN 2.4 g/dl (3.4-5.0); ALK PHOS 33 U/L (45-117); ANION GAP 6 MMOL/L (8-16); BILIRUBIN,TOTAL 0.4 mg/dL (0.2-1); BLOOD UREA NITROGEN 19 mg/dL (7-18); CALCIUM 7.7 mg/dL (8.5-10.1); CHLORIDE 96 mmol/L (98-107); CO2 26 mmol/L (21-32); CREATININE 0.8 mg/dL (0.55-1.3); GLUCOSE,RANDOM 203 mg/dL (74-106); MAGNESIUM 2.2 mg/dL (1.8-2.4); PHOSPHOROUS 3.1 mg/dL (2.5-4.9); POTASSIUM 4.3 mmol/L (3.5-5.1); SGOT/AST 27 U/L (15-37); SGPT/ALT 18 U/L (13-61); SODIUM 129 mmol/L (136-145); TOT PROT 5.4 g/dl (6.4-8.2)
[2018-05-20] MEDS: ALBUTEROL SO4 2.5/IPRATROPIUM 0.5 INH SOL 3 ML VIAL.NEB. NEB SCH ×4 (07:22→20:20)
[2018-05-20 09:57] LABS: ARTERIAL BLD GAS O2 SATURATION 98.1 % (90-98.9); ARTERIAL BLOOD GAS BASE EXCESS -1.8 meq/l (-2-2); ARTERIAL BLOOD GAS PCO2 53.4 mmHg (35-45); ARTERIAL BLOOD GAS pH 7.29 (7.35-7.45)
[2018-05-20 09:59] LABS: ALLENS TEST POSITIVE
[2018-05-20] MEDS ORDERED: CEFTRIAXONE 1 GM in DEXTROSE 5%-WATER - 50 ML IVPB SCH (10:00)
[2018-05-20] MEDS ORDERED: AZITHROMYCIN IVPB 500 MG/250 ML BAG IVPB SCH (10:00)
[2018-05-20] MEDS: SODIUM CHLORIDE 1,000 ML IV SCH (10:16)
[2018-05-20] MEDS: PANTOPRAZOLE SODIUM 40 MG VIAL IVPUSH SCH (10:17)
[2018-05-20] MEDS: MUPIROCIN 2% TOPICAL OINTMENT FOR DECOLONIZATION NS SCH ×2 (10:17→21:09)
[2018-05-20] MEDS ORDERED: PT OWN MED DRAWER 7, Y5N ONE ×3 (10:23→20:17)
[2018-05-20] MEDS: ENOXAPARIN NA (PORCINE) 60 MG/0.6 ML DISP.SYRIN SQ SCH (10:30)
[2018-05-20] MEDS: OSELTAMIVIR PHOSPHATE 75 MG CAPSULE GT SCH ×2 (10:30→21:10)
[2018-05-20] MEDS: FENTANYL INJECTION 500 MCG in DEXTROSE 5%-WATER - 90 ML IVPB SCH (11:00)
[2018-05-20] MEDS ORDERED: NOREPINEPHRINE BITARTRATE 4 MG/4 ML ML IV ONE (11:24)
[2018-05-20] MEDS: NOREPINEPHRINE BITARTRATE 8,000 MCG in DEXTROSE 5%-WATER - 492 ML IV SCH (11:27)
--- NOTE | 2018-05-20 12:19 | PN ---
Teaching Attending Note Name of Resident: Dhruv Strong ATTENDING PHYSICIAN STATEMENT I saw and evaluated the patient. I reviewed the resident's note and discussed the case with the resident. I agree with the resident's findings and plan as documented. SUBJECTIVE: Patient seen and examined in the ICU. Decompensated and required intubation. AC Mode of vent, 50% FiO2. On 16 mcq NE for hemodynamic support. CXR: ETT distal / bilateral airspace disease Intake & Output 05/17/18 05/18/18 05/19/18 05/20/18 23:59 23:59 23:59 23:59 Intake Total 3746 469 Output Total 500 400 Balance 3246 69 Weight 109 lb 15.994 oz Last Vital Signs Temp Pulse Resp BP Pulse Ox 98.7 F 93 H 18 99/72 100 05/20/18 09:00 05/20/18 12:00 05/20/18 12:00 05/20/18 12:00 05/20/18 10:22 Active Medications Albuterol Sulfate (Ventolin 0.083% Nebulizer Soln -) 1 amp NEB Q4H PRN PRN Reason: SHORT OF BREATH/WHEEZING Albuterol/Ipratropium (Duoneb -) 1 amp NEB RQID [facility] Last Admin: 05/20/18 07:22 Dose: 1 amp Amlodipine Besylate (Norvasc -) 5 mg PO DAILY [facility] Chlorhexidine Gluconate (Hibiclens For Decolonization -) 1 applic TP HS [facility] Last Admin: 05/19/18 21:20 Dose: 1 applic Enoxaparin Sodium (Lovenox -) 50 mg SQ Q12H [facility] Last Admin: 05/20/18 10:30 Dose: 50 mg Azithromycin (Zithromax 500mg Ivpb (Pre-Docked)) 500 mg in 250 mls @ 250 mls/ hr IVPB DAILY [facility] Last Admin: 05/20/18 10:29 Dose: 250 mls/hr Piperacillin Sod/Tazobactam (Sod 3.375 gm/ Dextrose) 50 mls @ 100 mls/hr IVPB Q8H-IV [facility]; Protocol Last Admin: 05/20/18 10:26 Dose: 100 mls/hr Vancomycin HCl 750 mg/ (Dextrose) 250 mls @ 250 mls/hr IVPB Q12H [facility]; Protocol Last Admin: 05/20/18 01:18 Dose: 250 mls/hr Propofol (Diprivan -) 1,000,000 mcg in 100 mls @ 1.497 mls/hr IVPB TITR [facility]; Protocol Last Admin: 05/19/18 13:56 Dose: Not Given Fentanyl 500 mcg/ Dextrose 100 mls @ 10 mls/hr IVPB TITR [facility]; Protocol Last Titration: 05/19/18 15:00 Dose: 0 mcg/hr, 0 mls/hr Midazolam HCl 100 mg/ Sodium (Chloride) 100 mls @ 1 mls/hr IVPB TITR [facility]; Protocol Last Titration: 05/20/18 08:30 Dose: 1.5 mg/hr, 1.5 mls/hr Phenylephrine HCl 20,000 mcg/ (Sodium Chloride) 250 mls @ 75 mls/hr IVPB ASDIR [facility]; Protocol Last Titration: 05/19/18 15:30 Dose: 180 mcg/min, 135 mls/hr Norepinephrine Bitartrate 8, (000 mcg/ Dextrose) 500 mls @ 18.75 mls/hr IV TITR [facility]; Protocol Last Admin: 05/20/18 11:27 Dose: Not Given Sodium Chloride (Normal Saline -) 1,000 mls @ 100 mls/hr IV ASDIR [facility] Last Admin: 05/20/18 10:16 Dose: 100 mls/hr Methylprednisolone Sodium Succinate (Solu-Medrol -) 60 mg IVPUSH Q8H-IV [facility] Last Admin: 05/20/18 10:25 Dose: 60 mg Mupirocin (Bactroban Ointment (For Decolonization) -) 1 applic NS BID [facility] Stop: 05/24/18 21:59 Last Admin: 05/20/18 10:17 Dose: 1 applic Oseltamivir Phosphate (Tamiflu -) 75 mg GT BID [facility] Stop: 05/24/18 21:59 Last Admin: 05/20/18 10:30 Dose: 75 mg Pantoprazole Sodium (Protonix Iv) 40 mg IVPUSH DAILY [facility] Last Admin: 05/20/18 10:17 Dose: 40 mg OBJECTIVE: GENERAL: Intubated and sedated HEAD: Normal with no signs of trauma. EYES: sclera anicteric, conjunctiva clear. No lid lag. EARS, NOSE, THROAT: Ears normal, nares patent, oropharynx clear without exudates. Moist mucous membranes. NECK: Normal range of motion, supple without lymphadenopathy, JVD, or masses. LUNGS: Intubated, (+) expiratory wheeze, (+) accessory muscle use HEART: Regular rate and rhythm, normal S1 and S2 without murmur, rub or gallop. ABDOMEN: Soft, nontender, not distended, normoactive bowel sounds, no guarding, no rebound, no masses. No hepatomegaly or splenomegaly. MUSCULOSKELETAL: Normal range of motion at all joints. No bony deformities or tenderness. No CVA tenderness. UPPER EXTREMITIES: 2+ pulses, warm, well-perfused. No cyanosis. No clubbing. No peripheral edema. LOWER EXTREMITIES: 2+ pulses, warm, well-perfused. No calf tenderness. No peripheral edema. NEUROLOGICAL: Sedated SKIN: Warm, dry, normal turgor, no rashes or lesions noted, normal capillary refill. Laboratory Results - last 24 hr 05/19/18 05/19/18 05/20/18 15:30 22:18 05:15 WBC 14.7 H RBC 4.48 Hgb 11.8 Hct 38.0 MCV 84.7 MCH 26.4 MCHC 31.2 L RDW 15.4 Plt Count 149 D MPV 9.9 Absolute Neuts (auto) 13.4 H Neutrophils % 90.9 H Lymphocytes % 1.8 L Monocytes % 7.1 Eosinophils % 0.0 Basophils % 0.2 Nucleated RBC % 0 Anticoagulation Therapy No Result Required. Puncture Site Left radial ABG pH 7.23 L* ABG pCO2 at Pt Temp 55.8 H D ABG pO2 at Pt Temp 139.0 H D ABG HCO3 22.5 ABG O2 Sat (Measured) 98.3 ABG O2 Content No Result Required. ABG Base Excess -5.0 L Bj Test Positive O2 Delivery Device No Result Required. Oxygen Flow Rate No Result Required. Vent Mode No Result Required. Vent Rate No Result Required. Mechanical Rate No Result Required. PEEP Pressure Support Vent No Result Required. Sodium Potassium Chloride Carbon Dioxide Anion Gap BUN Creatinine Creat Clearance w eGFR Random Glucose Calcium Phosphorus Magnesium Total Bilirubin AST ALT Alkaline Phosphatase Total Protein Albumin Influenza A (Rapid) Negative Influenza B (Rapid) Negative 05/20/18 05/20/18 05:15 09:45 WBC RBC Hgb Hct MCV MCH MCHC RDW Plt Count MPV Absolute Neuts (auto) Neutrophils % Lymphocytes % Monocytes % Eosinophils % Basophils % Nucleated RBC % Anticoagulation Therapy Puncture Site Right radial ABG pH 7.29 L ABG pCO2 at Pt Temp 53.4 H ABG pO2 at Pt Temp 109.0 H D ABG HCO3 24.9 ABG O2 Sat (Measured) 98.1 ABG O2 Content 17.0 ABG Base Excess -1.8 Bj Test Positive O2 Delivery Device Oxygen Flow Rate 80 Vent Mode Vent Rate 18 Mechanical Rate PEEP 10.0 Pressure Support Vent Sodium 129 L Potassium 4.3 Chloride 96 L Carbon Dioxide 26 Anion Gap 6 L BUN 19 H Creatinine 0.8 Creat Clearance w eGFR > 60 Random Glucose 203 H Calcium 7.7 L Phosphorus 3.1 Magnesium 2.2 Total Bilirubin 0.4 AST 27 ALT 18 Alkaline Phosphatase 33 L Total Protein 5.4 L Albumin 2.4 L Influenza A (Rapid) Influenza B (Rapid) ASSESSMENT/PLAN: Acute Respiratory Failure Bilateral PNA COPD Previous intubation History of Breast and Lung CA, S/P right lung resection History of gastric ulcer with perforation. AC Mode of vent Follow ABG BD TX standing and PRN Medrol ABX coverage VTE prophylaxis Aspiration precautions Follow sputum Follow urinary antigen ECHO Enteral feeds Wean pressors as tolerated IVF ICU monitoring for tenuous respiratory status Dr Harris Critical care time spent in reviewing chart, evaluating patient and formulating plan - 36 minutes.
[2018-05-20 12:36] LABS: PLATELET ESTIMATE ADEQUATE
--- NOTE | 2018-05-20 13:49 | PN ---
Progress Note (short form) - Note Progress Note: intubated sedated on pressors Vital Signs Period Temp Pulse Resp BP Sys/Sawyer Pulse Ox Last 24 Hr 97.4 F-98.7 F 80-107 18-23 64-116/25-72 80-100 cor rrr lungs decreased bs at bases abd firm nt ext no edema CBC, BMP 05/20/18 05:15 05/20/18 05:15 Microbiology 05/19/18 09:00 Nasopharyngeal Aspirate Respiratory Virus (PCR) - Preliminary 05/19/18 15:09 Urine - Urine - Catheterized Legionella Antigen - Final 05/19/18 15:09 Urine - Urine - Catheterized Streptococcus pneumoniae Antigen (M - Final- positive 05/19/18 08:30 Urine - Urine Clean Catch Urine Culture - Final NO GROWTH OBTAINED 05/19/18 08:18 Blood - Peripheral Venous Blood Culture - Preliminary NO GROWTH OBTAINED AFTER 24 HOURS, INCUBATION TO CONTINUE FOR 4 DAYS. 05/19/18 08:18 Blood - Peripheral Venous Blood Culture - Preliminary NO GROWTH OBTAINED AFTER 24 HOURS, INCUBATION TO CONTINUE FOR 4 DAYS. cxray bibasilar infiltrates a/p acute hypoxemic respiratory failure ?pneumococcal sepsis bilateral pneumonia empiric tamiflu copd exacerbation history of lung cancer history of breast cancer pcp dr bullock in the evert no recent vaccines per continue vanco/zosyn/tamiflu check vancomycin level
--- NOTE | 2018-05-20 14:34 | PN ---
Physical Exam: SUBJECTIVE: Patient seen and examined at bedside. Intubated and sedated at time of encounter. OBJECTIVE: Vital Signs Period Temp Pulse Resp BP Sys/Saywer Pulse Ox Last 24 Hr 98.2 F-98.7 F 80-103 18-23 64-116/25-72 80-100 GENERAL: Intubated and sedated HEAD: NC/AT EYES: PERRL ENT: Dry mucous membranes NECK: Trachea midline, no JVD or LAD LUNGS: coarse breathing, diffuse rhonchi HEART: tachycardic no m/r/g ABDOMEN: distant bs, soft, no pain response to deep palpation EXTREMITIES: 2+ pulses, warm, well-perfused, no edema. NEUROLOGICAL: unable to assess PSYCH: unable to assess SKIN: Warm, dry, normal turgor Laboratory Results - last 24 hr 05/19/18 05/19/18 05/20/18 15:30 22:18 05:15 WBC 14.7 H RBC 4.48 Hgb 11.8 Hct 38.0 MCV 84.7 MCH 26.4 MCHC 31.2 L RDW 15.4 Plt Count 149 D MPV 9.9 Absolute Neuts (auto) 13.4 H Neutrophils % 90.9 H Neutrophils % (Manual) 48.9 Band Neutrophils % 21.1 Lymphocytes % 1.8 L Lymphocytes % (Manual) 2.2 L D Monocytes % 7.1 Monocytes % (Manual) 11 H D Eosinophils % 0.0 Eosinophils % (Manual) 0.0 Basophils % 0.2 Basophils % (Manual) 0.0 Myelocytes % (Man) 3 H D Promyelocytes % (Man) 0 Blast Cells % (Manual) 0 Nucleated RBC % 0 Metamyelocytes 8 H D Hypochromia 0 Platelet Estimate Adequate Polychromasia 0 Poikilocytosis 0 Anisocytosis No Result Required. Microcytosis No Result Required. Macrocytosis No Result Required. Anticoagulation Therapy No Result Required. Puncture Site Left radial ABG pH 7.23 L* ABG pCO2 at Pt Temp 55.8 H D ABG pO2 at Pt Temp 139.0 H D ABG HCO3 22.5 ABG O2 Sat (Measured) 98.3 ABG O2 Content No Result Required. ABG Base Excess -5.0 L Bj Test Positive O2 Delivery Device No Result Required. Oxygen Flow Rate No Result Required. Vent Mode No Result Required. Vent Rate No Result Required. Mechanical Rate No Result Required. PEEP Pressure Support Vent No Result Required. Sodium Potassium Chloride Carbon Dioxide Anion Gap BUN Creatinine Creat Clearance w eGFR Random Glucose Calcium Phosphorus Magnesium Total Bilirubin AST ALT Alkaline Phosphatase Total Protein Albumin Influenza A (Rapid) Negative Influenza B (Rapid) Negative 05/20/18 05/20/18 05:15 09:45 WBC RBC Hgb Hct MCV MCH MCHC RDW Plt Count MPV Absolute Neuts (auto) Neutrophils % Neutrophils % (Manual) Band Neutrophils % Lymphocytes % Lymphocytes % (Manual) Monocytes % Monocytes % (Manual) Eosinophils % Eosinophils % (Manual) Basophils % Basophils % (Manual) Myelocytes % (Man) Promyelocytes % (Man) Blast Cells % (Manual) Nucleated RBC % Metamyelocytes Hypochromia Platelet Estimate Polychromasia Poikilocytosis Anisocytosis Microcytosis Macrocytosis Anticoagulation Therapy Puncture Site Right radial ABG pH 7.29 L ABG pCO2 at Pt Temp 53.4 H ABG pO2 at Pt Temp 109.0 H D ABG HCO3 24.9 ABG O2 Sat (Measured) 98.1 ABG O2 Content 17.0 ABG Base Excess -1.8 Bj Test Positive O2 Delivery Device Oxygen Flow Rate 80 Vent Mode Vent Rate 18 Mechanical Rate PEEP 10.0 Pressure Support Vent Sodium 129 L Potassium 4.3 Chloride 96 L Carbon Dioxide 26 Anion Gap 6 L BUN 19 H Creatinine 0.8 Creat Clearance w eGFR > 60 Random Glucose 203 H Calcium 7.7 L Phosphorus 3.1 Magnesium 2.2 Total Bilirubin 0.4 AST 27 ALT 18 Alkaline Phosphatase 33 L Total Protein 5.4 L Albumin 2.4 L Influenza A (Rapid) Influenza B (Rapid) Active Medications Generic Name Dose Route Start Last Admin Trade Name Freq PRN Reason Stop Dose Admin Albuterol Sulfate 1 amp 05/19/18 11:35 Ventolin 0.083% Nebulizer Soln - NEB Q4H PRN SHORT OF BREATH/WHEEZING Albuterol/Ipratropium 1 amp 05/19/18 12:00 05/20/18 07:22 Duoneb - NEB 1 amp RQID [facility] Administration Amlodipine Besylate 5 mg 05/20/18 10:00 Norvasc - PO DAILY [facility] Chlorhexidine Gluconate 1 applic 05/19/18 22:00 05/19/18 21:20 Hibiclens For Decolonization - TP 1 applic HS [facility] Administration Enoxaparin Sodium 40 mg 05/21/18 10:00 Lovenox - SQ DAILY [facility] Piperacillin Sod/Tazobactam 50 mls @ 100 mls/hr 05/19/18 13:30 05/20/18 10:26 Sod 3.375 gm/ Dextrose IVPB 100 mls/hr Q8H-IV [facility] Administration Protocol Vancomycin HCl 750 mg/ 250 mls @ 250 mls/hr 05/19/18 14:00 05/20/18 01:18 Dextrose IVPB 250 mls/hr Q12H [facility] Administration Protocol Propofol 1,000,000 mcg in 100 mls @ 1.497 mls/hr 05/19/18 13:45 05/19/18 13: 56 Diprivan - IVPB Not Given TITR [facility] Protocol 5 MCG/KG/MIN Fentanyl 500 mcg/ Dextrose 100 mls @ 10 mls/hr 05/19/18 14:30 05/19/18 15:00 IVPB 0 mcg/hr TITR [facility] 0 mls/hr Titration Protocol 50 MCG/HR Midazolam HCl 100 mg/ Sodium 100 mls @ 1 mls/hr 05/19/18 14:45 05/20/18 08:30 Chloride IVPB 1.5 mg/hr TITR [facility] 1.5 mls/hr Titration Protocol 1 MG/HR Phenylephrine HCl 20,000 mcg/ 250 mls @ 75 mls/hr 05/19/18 14:45 05/19/18 15: 30 Sodium Chloride IVPB 180 mcg/min ASDIR [facility] 135 mls/hr Titration Protocol 100 MCG/MIN Norepinephrine Bitartrate 8, 500 mls @ 18.75 mls/hr 05/19/18 18:45 05/20/18 12:54 000 mcg/ Dextrose IV 13 mcg/min TITR [facility] 48.75 mls/hr Titration Protocol 5 MCG/MIN Sodium Chloride 1,000 mls @ 100 mls/hr 05/20/18 09:45 05/20/18 10:16 Normal Saline - IV 100 mls/hr ASDIR [facility] Administration Methylprednisolone Sodium Succinate 60 mg 05/19/18 11:00 05/20/18 10:25 Solu-Medrol - IVPUSH 60 mg Q8H-IV [facility] Administration Mupirocin 1 applic 05/19/18 22:00 05/20/18 10:17 Bactroban Ointment (For Decolonization) - NS 05/24/18 21:59 1 applic BID [facility] Administration Oseltamivir Phosphate 75 mg 05/19/18 22:00 05/20/18 10:30 Tamiflu - GT 05/24/18 21:59 75 mg BID [facility] Administration Pantoprazole Sodium 40 mg 05/19/18 11:45 05/20/18 10:17 Protonix Iv IVPUSH 40 mg DAILY [facility] Administration ASSESSMENT/PLAN: 67 y/o F w/ PMHx COPD on 2L O2, breast and lung Ca, perforated ulcer, prior intubation, p/w lethargy, SOB, increased WOB, found to have b/l infiltrates on CXR. Decompensated and underwent intubation and RIJ central line placement. In ICU in septic shock w/ acute on chronic respiratory failure 2/2 PNA. #CV -RIJ line placed, on levophed -may require 2nd pressor -poor quality echo, RV systolic pressure elevated #pulmonary -intubated on AC mode, downtitrating FiO2 from 100% to 50% -sedated on fentanyl and midazolam -bronchodilators -solumedrol 60 q8h -f/u ABG, CXR #ID -ID following -urine pneumococcal antigens positive -vancomycin/zosyn/tamiflu as per ID #FEN -no IVF -monitor and correct electrolytes -osmolite tube feeds #PPx -DVT: Lovenox subq -GI: IV PTX #code -full #dispo -continue to monitor in ICU Visit type - Emergency Visit Emergency Visit: No - New Patient This patient is new to me today: Yes Date on this admission: 05/20/18 - Critical Care Critical Care patient: Yes Total Critical Care Time (in minutes): 40 Critical Care Statement: The care of this patient involved high complexity decision making to prevent further life threatening deterioration of the patient 's condition and/or to evaluate & treat vital organ system(s) failure or risk of failure.
[2018-05-20] MEDS: PROPOFOL 1,000,000 MCG/100 ML VIAL IVPB SCH (15:12)
[2018-05-20] MEDS: PHENYLEPHRINE HCL 20,000 MCG in SODIUM CHLORIDE 248 ML IVPB SCH (15:13)
--- NOTE | 2018-05-20 17:20 | PN ---
Physical Exam: SUBJECTIVE: Patient seen and examined at bedside this morning. Patient intubated and sedated. On Levaquin 16mcg/min, Midazolam 1.5mg/hr, Fentanyl 25mcg/hr Vent settings: 18/330/10/50 OBJECTIVE: Vital Signs Period Temp Pulse Resp BP Sys/Sawyer Pulse Ox Last 24 Hr 98.2 F-99.6 F 79-103 17-22 76-116/25-72 80-100 GENERAL: Patient intubated and sedated. Arousable by sternal rub, opens eyes and squeezed hand when asked to. HEAD: Normal with no signs of trauma. HEENT: PERRLA, dry mucous membranes NECK: soft, supple, trachea midline LUNGS: Coarse breath sounds bilaterally HEART: Regular rate and rhythm, S1, S2 without murmur, rub or gallop. ABDOMEN: Soft, nontender, nondistended, normoactive bowel sounds EXTREMITIES: 2+ pulses, warm, well-perfused, no edema. Laboratory Results - last 24 hr 05/19/18 05/20/18 05/20/18 22:18 05:15 05:15 WBC 14.7 H RBC 4.48 Hgb 11.8 Hct 38.0 MCV 84.7 MCH 26.4 MCHC 31.2 L RDW 15.4 Plt Count 149 D MPV 9.9 Absolute Neuts (auto) 13.4 H Neutrophils % 90.9 H Neutrophils % (Manual) 48.9 Band Neutrophils % 21.1 Lymphocytes % 1.8 L Lymphocytes % (Manual) 2.2 L D Monocytes % 7.1 Monocytes % (Manual) 11 H D Eosinophils % 0.0 Eosinophils % (Manual) 0.0 Basophils % 0.2 Basophils % (Manual) 0.0 Myelocytes % (Man) 3 H D Promyelocytes % (Man) 0 Blast Cells % (Manual) 0 Nucleated RBC % 0 Metamyelocytes 8 H D Hypochromia 0 Platelet Estimate Adequate Polychromasia 0 Poikilocytosis 0 Anisocytosis No Result Required. Microcytosis No Result Required. Macrocytosis No Result Required. Puncture Site ABG pH ABG pCO2 at Pt Temp ABG pO2 at Pt Temp ABG HCO3 ABG O2 Sat (Measured) ABG O2 Content ABG Base Excess Bj Test Oxygen Flow Rate Vent Rate PEEP Sodium 129 L Potassium 4.3 Chloride 96 L Carbon Dioxide 26 Anion Gap 6 L BUN 19 H Creatinine 0.8 Creat Clearance w eGFR > 60 Random Glucose 203 H Calcium 7.7 L Phosphorus 3.1 Magnesium 2.2 Total Bilirubin 0.4 AST 27 ALT 18 Alkaline Phosphatase 33 L Total Protein 5.4 L Albumin 2.4 L Influenza A (Rapid) Negative Influenza B (Rapid) Negative 05/20/18 09:45 WBC RBC Hgb Hct MCV MCH MCHC RDW Plt Count MPV Absolute Neuts (auto) Neutrophils % Neutrophils % (Manual) Band Neutrophils % Lymphocytes % Lymphocytes % (Manual) Monocytes % Monocytes % (Manual) Eosinophils % Eosinophils % (Manual) Basophils % Basophils % (Manual) Myelocytes % (Man) Promyelocytes % (Man) Blast Cells % (Manual) Nucleated RBC % Metamyelocytes Hypochromia Platelet Estimate Polychromasia Poikilocytosis Anisocytosis Microcytosis Macrocytosis Puncture Site Right radial ABG pH 7.29 L ABG pCO2 at Pt Temp 53.4 H ABG pO2 at Pt Temp 109.0 H D ABG HCO3 24.9 ABG O2 Sat (Measured) 98.1 ABG O2 Content 17.0 ABG Base Excess -1.8 Bj Test Positive Oxygen Flow Rate 80 Vent Rate 18 PEEP 10.0 Sodium Potassium Chloride Carbon Dioxide Anion Gap BUN Creatinine Creat Clearance w eGFR Random Glucose Calcium Phosphorus Magnesium Total Bilirubin AST ALT Alkaline Phosphatase Total Protein Albumin Influenza A (Rapid) Influenza B (Rapid) Active Medications Generic Name Dose Route Start Last Admin Trade Name Freq PRN Reason Stop Dose Admin Albuterol Sulfate 1 amp 05/19/18 11:35 Ventolin 0.083% Nebulizer Soln - NEB Q4H PRN SHORT OF BREATH/WHEEZING Albuterol/Ipratropium 1 amp 05/19/18 12:00 05/20/18 16:02 Duoneb - NEB 1 amp RQID [facility] Administration Amlodipine Besylate 5 mg 05/20/18 10:00 Norvasc - PO DAILY [facility] Chlorhexidine Gluconate 1 applic 05/19/18 22:00 05/19/18 21:20 Hibiclens For Decolonization - TP 1 applic HS [facility] Administration Enoxaparin Sodium 40 mg 05/21/18 10:00 Lovenox - SQ DAILY [facility] Piperacillin Sod/Tazobactam 50 mls @ 100 mls/hr 05/19/18 13:30 05/20/18 10:26 Sod 3.375 gm/ Dextrose IVPB 100 mls/hr Q8H-IV [facility] Administration Protocol Vancomycin HCl 750 mg/ 250 mls @ 250 mls/hr 05/19/18 14:00 05/20/18 15:12 Dextrose IVPB 250 mls/hr Q12H [facility] Administration Protocol Propofol 1,000,000 mcg in 100 mls @ 1.497 mls/hr 05/19/18 13:45 05/20/18 15: 12 Diprivan - IVPB Not Given TITR [facility] Protocol 5 MCG/KG/MIN Fentanyl 500 mcg/ Dextrose 100 mls @ 10 mls/hr 05/19/18 14:30 05/19/18 15:00 IVPB 0 mcg/hr TITR [facility] 0 mls/hr Titration Protocol 50 MCG/HR Midazolam HCl 100 mg/ Sodium 100 mls @ 1 mls/hr 05/19/18 14:45 05/20/18 08:30 Chloride IVPB 1.5 mg/hr TITR [facility] 1.5 mls/hr Titration Protocol 1 MG/HR Phenylephrine HCl 20,000 mcg/ 250 mls @ 75 mls/hr 05/19/18 14:45 05/20/18 15: 13 Sodium Chloride IVPB Not Given ASDIR [facility] Protocol 100 MCG/MIN Norepinephrine Bitartrate 8, 500 mls @ 18.75 mls/hr 05/19/18 18:45 05/20/18 12:54 000 mcg/ Dextrose IV 13 mcg/min TITR [facility] 48.75 mls/hr Titration Protocol 5 MCG/MIN Sodium Chloride 1,000 mls @ 100 mls/hr 05/20/18 09:45 05/20/18 10:16 Normal Saline - IV 100 mls/hr ASDIR [facility] Administration Methylprednisolone Sodium Succinate 60 mg 05/19/18 11:00 05/20/18 10:25 Solu-Medrol - IVPUSH 60 mg Q8H-IV [facility] Administration Mupirocin 1 applic 05/19/18 22:00 05/20/18 10:17 Bactroban Ointment (For Decolonization) - NS 05/24/18 21:59 1 applic BID [facility] Administration Oseltamivir Phosphate 75 mg 05/19/18 22:00 05/20/18 10:30 Tamiflu - GT 05/24/18 21:59 75 mg BID [facility] Administration Pantoprazole Sodium 40 mg 05/19/18 11:45 05/20/18 10:17 Protonix Iv IVPUSH 40 mg DAILY [facility] Administration ASSESSMENT/PLAN: Patient is a 67 year old female with past medical history of COPD with hx of intubation, breast and lung CA, perforated ulcer, HTN, presented with worsening shortness of breath with increased sputum production for a few days. #Acute hypoxic respiratory failure:likely 2/2 COPD exacerbation, bilateral pneumonia -Intubated and sedated -On Midazolam and Fentanyl -Downtitrating FiO2 -Duonebs RQID, Albuterol q4h PRN -IV Methylprednisolone 60mg q8h -Azithromycin 500mg daily -ABG, CXR daily #Septic shock likely 2/2 pneumonia -On IV Levophed @ 16 -May require 2nd pressor -ID (Dr. Baird) consulted. Recommendations appreciated. -Vancomycin 750mg q12h -Zosyn 3.375mg q8h -Oseltamivir 75mg BID -Urine pneumococcal antigens positive -Vanc level #HTN -Hold anti-hypertensives -on Vasopressors #FEN -Not on any standing fluids -Electrolytes wnl, routine bmp monitoring -Tube feed osmolite 05/19 #Prophylaxis -DVT: Lovenox 50 mg sq BID -GI: IV [id number] daily #Disposition -full code -Admit to ICU for closer monitoring Visit type - Emergency Visit Emergency Visit: Yes ED Registration Date: 05/19/18 Care time: The patient presented to the Emergency Department on the above date and was hospitalized for further evaluation of their emergent condition. - New Patient This patient is new to me today: Yes Date on this admission: 05/20/18 - Critical Care Critical Care patient: Yes Total Critical Care Time (in minutes): 40 Critical Care Statement: The care of this patient involved high complexity decision making to prevent further life threatening deterioration of the patient 's condition and/or to evaluate & treat vital organ system(s) failure or risk of failure.
[2018-05-20] MEDS: MIDAZOLAM 100 MG in SODIUM CHLORIDE 100 ML IVPB SCH (17:36)
--- NOTE | 2018-05-20 19:46 | PN ---
Teaching Attending Note Name of Resident: Lore Vega ATTENDING PHYSICIAN STATEMENT I saw and evaluated the patient. I reviewed the resident's note and discussed the case with the resident. I agree with the resident's findings and plan as documented. SUBJECTIVE: Patient is intubated and sedated in ICU. at bedside. OBJECTIVE: Vital Signs Temperature 99.0 F 05/20/18 17:00 Pulse Rate 94 H 05/20/18 18:59 Respiratory Rate 22 H 05/20/18 19:09 Blood Pressure 92/65 05/20/18 18:59 O2 Sat by Pulse Oximetry (%) 96 05/20/18 18:44 GENERAL:on the vent. sedated and intubated. HEAD: AT/NC with no signs of trauma. EYES: Pupils equal, round and reactive to light, sclera anicteric, conjunctiva clear. EARS, NOSE, THROAT: on the vent. NECK: Normal range of motion, supple , no JVD. RIJ line (day 3) LUNGS: intubated ,sedated , decreased breath sounds bl, positive for rhonchi bilaterally. HEART: Regular rate and rhythm, normal S1 and S2 without murmur, rub or gallop. ABDOMEN: Soft, nontender, not distended, normoactive bowel sounds, no guarding. EXTREMITIES: 2+ pulses, no peripheral edema. NEUROLOGICAL: unable to access , due to sedation PSYCHIATRIC: Cooperative. Good eye contact. Appropriate mood and affect. SKIN: Warm, dry, normal turgor, no rashes appreciated. CBCD WBC 14.7 K/mm3 (4.0-10.0) H 05/20/18 05:15 RBC 4.48 M/mm3 (3.60-5.2) 05/20/18 05:15 Hgb 11.8 GM/dL (10.7-15.3) 05/20/18 05:15 Hct 38.0 % (32.4-45.2) 05/20/18 05:15 MCV 84.7 fl (80-96) 05/20/18 05:15 MCHC 31.2 g/dl (32.0-36.0) L 05/20/18 05:15 RDW 15.4 % (11.6-15.6) 05/20/18 05:15 Plt Count 149 K/MM3 (134-434) D 05/20/18 05:15 MPV 9.9 fl (7.5-11.1) 05/20/18 05:15 CMP Sodium 129 mmol/L (136-145) L 05/20/18 05:15 Potassium 4.3 mmol/L (3.5-5.1) 05/20/18 05:15 Chloride 96 mmol/L (98-107) L 05/20/18 05:15 Carbon Dioxide 26 mmol/L (21-32) 05/20/18 05:15 Anion Gap 6 MMOL/L (8-16) L 05/20/18 05:15 BUN 19 mg/dL (7-18) H 05/20/18 05:15 Creatinine 0.8 mg/dL (0.55-1.3) 05/20/18 05:15 Creat Clearance w eGFR > 60 (>60) 05/20/18 05:15 Random Glucose 203 mg/dL (74-106) H 05/20/18 05:15 Calcium 7.7 mg/dL (8.5-10.1) L 05/20/18 05:15 Total Bilirubin 0.4 mg/dL (0.2-1) 05/20/18 05:15 AST 27 U/L (15-37) 05/20/18 05:15 ALT 18 U/L (13-61) 05/20/18 05:15 Alkaline Phosphatase 33 U/L (45-117) L 05/20/18 05:15 Total Protein 5.4 g/dl (6.4-8.2) L 05/20/18 05:15 Albumin 2.4 g/dl (3.4-5.0) L 05/20/18 05:15 CARDIAC ENZYMES Troponin I < 0.02 ng/ml (0.00-0.05) 05/19/18 08:18 Current Medications Generic Name Dose Route Start Last Admin Trade Name Freq PRN Reason Stop Dose Admin Albuterol Sulfate 1 amp 05/19/18 11:35 Ventolin 0.083% Nebulizer Soln - NEB Q4H PRN SHORT OF BREATH/WHEEZING Albuterol/Ipratropium 1 amp 05/19/18 12:00 05/20/18 16:02 Duoneb - NEB 1 amp RQID BRIE Administration Amlodipine Besylate 5 mg 05/20/18 10:00 Norvasc - PO DAILY BRIE Chlorhexidine Gluconate 1 applic 05/19/18 22:00 05/19/18 21:20 Hibiclens For Decolonization - TP 1 applic HS BRIE Administration Enoxaparin Sodium 40 mg 05/21/18 10:00 Lovenox - SQ DAILY BRIE Piperacillin Sod/Tazobactam 50 mls @ 100 mls/hr 05/19/18 13:30 05/20/18 17:11 Sod 3.375 gm/ Dextrose IVPB 100 mls/hr Q8H-IV BRIE Administration Protocol Vancomycin HCl 750 mg/ 250 mls @ 250 mls/hr 05/19/18 14:00 05/20/18 15:12 Dextrose IVPB 250 mls/hr Q12H BRIE Administration Protocol Propofol 1,000,000 mcg in 100 mls @ 1.497 mls/hr 05/19/18 13:45 05/20/18 15: 12 Diprivan - IVPB Not Given TITR BRIE Protocol 5 MCG/KG/MIN Fentanyl 500 mcg/ Dextrose 100 mls @ 10 mls/hr 05/19/18 14:30 05/20/18 11:00 IVPB 25 mcg/hr TITR BRIE 5 mls/hr Administration Protocol 50 MCG/HR Midazolam HCl 100 mg/ Sodium 100 mls @ 1 mls/hr 05/19/18 14:45 05/20/18 17:47 Chloride IVPB 2 mg/hr TITR BRIE 2 mls/hr Titration Protocol 1 MG/HR Phenylephrine HCl 20,000 mcg/ 250 mls @ 75 mls/hr 05/19/18 14:45 05/20/18 15: 13 Sodium Chloride IVPB Not Given ASDIR BRIE Protocol 100 MCG/MIN Norepinephrine Bitartrate 8, 500 mls @ 18.75 mls/hr 05/19/18 18:45 05/20/18 18:40 000 mcg/ Dextrose IV 11 mcg/min TITR BRIE 41.25 mls/hr Titration Protocol 5 MCG/MIN Sodium Chloride 1,000 mls @ 100 mls/hr 05/20/18 09:45 05/20/18 10:16 Normal Saline - IV 100 mls/hr ASDIR BRIE Administration Methylprednisolone Sodium Succinate 60 mg 05/19/18 11:00 05/20/18 17:11 Solu-Medrol - IVPUSH 60 mg Q8H-IV BRIE Administration Mupirocin 1 applic 05/19/18 22:00 05/20/18 10:17 Bactroban Ointment (For Decolonization) - NS 05/24/18 21:59 1 applic BID BRIE Administration Oseltamivir Phosphate 75 mg 05/19/18 22:00 05/20/18 10:30 Tamiflu - GT 05/24/18 21:59 75 mg BID BRIE Administration Pantoprazole Sodium 40 mg 05/19/18 11:45 05/20/18 10:17 Protonix Iv IVPUSH 40 mg DAILY BRIE Administration Home Medications Medication Instructions Recorded Salmeterol/Fluticasone [Advair 1 inh PO BID 03/16/12 250Mcg/50Mcg] Albuterol 0.083% Nebulizer Bhavana 1 amp NEB PRN PRN 05/19/18 [Ventolin 0.083% Nebulizer Soln -] Amlodipine Besylate [Norvasc -] 5 mg PO DAILY 05/19/18 CXR: left base infiltrate with effusion. ASSESSMENT AND PLAN: The patient is a 67 year old female with a significant PMHx of COPD on 2 L home Oxygen at home with previous hx of intubation, HTN, left sided lung Ca and right sided breast cancer s/p Rtx , presented with SOB and cough x few days. patient was placed on Bipap in ED, and admitted to icu for further care. # Acute hypoxic hypercapnic respiratory failure s/p intubation on the vent: Due to Pneumonia / COPD exacerbation on IV antibiotics continue. further management as per ICU team, on pressors now, due to propofol. On levophed titrate as needed , on phenelephrine continue # Acute COPD exacerbation s/ p intubation : on Duonebs, solu-medrol IV, # Acute pneumonia with left sided effusion: on IV antibiotic Zosyn/ vancomycin , ID on the case.Follow urinary antigen for strept. pneumo and legionella. #HTN: Hold Norvasc 5 mg since hypotensive . DVT PPX:Heparin sq GI Px: Protonix px tamiflu as per id
[2018-05-20] MEDS: CHLORHEXIDINE GLUCONATE 4% CLEANSER FOR DECOLONIZATION TP SCH (21:10)
[2018-05-20] MEDS ORDERED: MIDAZOLAM 100 MG/100 ML MG IVPB ONE (23:23)
[2018-05-20] MEDS ORDERED: fentaNYL CITRATE 250 MCG/5 ML VIAL ONE (23:26)
[2018-05-21] MEDS: PIPERACILLIN/TAZOB 3.375 GM 3.375 GM in DEXTROSE 5%-WATER - 50 ML IVPB SCH ×3 (01:06→17:33)
[2018-05-21] MEDS: VANCOMYCIN 750 MG in DEXTROSE 5%-WATER - 250 ML IVPB SCH ×2 (02:07→15:35)
[2018-05-21] MEDS: NOREPINEPHRINE BITARTRATE 8,000 MCG in DEXTROSE 5%-WATER - 492 ML IV SCH (03:30)
[2018-05-21] MEDS: methylPREDNISolone NA SUCC 40 MG/1 ML VIAL IVPUSH SCH ×3 (03:30→17:32)
[2018-05-21] MEDS: MIDAZOLAM 100 MG in SODIUM CHLORIDE 100 ML IVPB SCH ×2 (03:35→16:08)
[2018-05-21 06:17] LABS: BASO % 0.4 % (0-2.0); HEMATOCRIT 33.8 % (32.4-45.2); HEMOGLOBIN 10.4 GM/dL (10.7-15.3); LYMPH % 0.9 % (8-40); MCH 25.9 pg (25.7-33.7); MCHC 30.9 g/dl (32.0-36.0); MEAN PLT VOLUME 10.8 fl (7.5-11.1); NEUT % 91.7 % (42.8-82.8); PLATELET COUNT 156 K/MM3 (134-434); RBC 4.02 M/mm3 (3.60-5.2); RDW 15.5 % (11.6-15.6); WHITE BLOOD COUNT 20.9 K/mm3 (4.0-10.0)
[2018-05-21 06:46] LABS: ALBUMIN 2.1 g/dl (3.4-5.0); ALK PHOS 47 U/L (45-117); ANION GAP 5 MMOL/L (8-16); BILIRUBIN,TOTAL 0.4 mg/dL (0.2-1); BLOOD UREA NITROGEN 15 mg/dL (7-18); CALCIUM 7.6 mg/dL (8.5-10.1); CHLORIDE 102 mmol/L (98-107); CO2 29 mmol/L (21-32); CREATININE 0.7 mg/dL (0.55-1.3); GLUCOSE,RANDOM 174 mg/dL (74-106); MAGNESIUM 2.5 mg/dL (1.8-2.4); PHOSPHOROUS 2.3 mg/dL (2.5-4.9); POTASSIUM 3.7 mmol/L (3.5-5.1); SGOT/AST 21 U/L (15-37); SGPT/ALT 16 U/L (13-61); SODIUM 137 mmol/L (136-145); TOT PROT 5.1 g/dl (6.4-8.2)
[2018-05-21] MEDS: FENTANYL INJECTION 500 MCG in DEXTROSE 5%-WATER - 90 ML IVPB SCH ×2 (07:00→16:08)
[2018-05-21 07:14] LABS: ARTERIAL BLD GAS O2 SATURATION 95.3 % (90-98.9); ARTERIAL BLOOD GAS BASE EXCESS 0.3 meq/l (-2-2); ARTERIAL BLOOD GAS PCO2 49.3 mmHg (35-45); ARTERIAL BLOOD GAS PO2 79.2 mmHg (80-100); ARTERIAL BLOOD GAS pH 7.34 (7.35-7.45)
[2018-05-21 07:24] LABS: ALLENS TEST POSITIVE
[2018-05-21] MEDS ORDERED: POTASSIUM PHOSPHATE 20 MM in DEXTROSE 5%-WATER - 250 ML IVPB ONE (08:30)
[2018-05-21] MEDS: ALBUTEROL SO4 2.5/IPRATROPIUM 0.5 INH SOL 3 ML VIAL.NEB. NEB SCH ×4 (08:56→20:24)
--- NOTE | 2018-05-21 09:00 | PN ---
Physical Exam: SUBJECTIVE: Patient seen and examined at bedside. Intubated and sedated at time of encounter. OBJECTIVE: Vital Signs Period Temp Pulse Resp BP Sys/Sawyer Pulse Ox Last 24 Hr 96.7 F-99.6 F 79-104 10-22 92-116/52-72 80-100 GENERAL: Intubated and sedated HEAD: NC/AT EYES: PERRL ENT: Dry mucous membranes NECK: Trachea midline, no JVD or LAD LUNGS: coarse breathing, diffuse rhonchi HEART: RRR no m/r/g ABDOMEN: +bs, soft, no pain response to deep palpation EXTREMITIES: 2+ pulses, warm, well-perfused, no edema. NEUROLOGICAL: unable to assess PSYCH: unable to assess SKIN: Warm, dry, normal turgor Laboratory Results - last 24 hr 05/20/18 05/20/18 05/21/18 05:15 09:45 05:30 WBC 20.9 H RBC 4.02 Hgb 10.4 L Hct 33.8 MCV 84.0 MCH 25.9 MCHC 30.9 L RDW 15.5 Plt Count 156 MPV 10.8 Absolute Neuts (auto) 19.2 H Neutrophils % 91.7 H Neutrophils % (Manual) 48.9 Band Neutrophils % 21.1 Lymphocytes % 0.9 L Lymphocytes % (Manual) 2.2 L D Monocytes % 7.0 Monocytes % (Manual) 11 H D Eosinophils % 0.0 Eosinophils % (Manual) 0.0 Basophils % 0.4 Basophils % (Manual) 0.0 Myelocytes % (Man) 3 H D Promyelocytes % (Man) 0 Blast Cells % (Manual) 0 Nucleated RBC % 0 Metamyelocytes 8 H D Hypochromia 0 Platelet Estimate Adequate Polychromasia 0 Poikilocytosis 0 Anisocytosis No Result Required. Microcytosis No Result Required. Macrocytosis No Result Required. Puncture Site Right radial ABG pH 7.29 L ABG pCO2 at Pt Temp 53.4 H ABG pO2 at Pt Temp 109.0 H D ABG HCO3 24.9 ABG O2 Sat (Measured) 98.1 ABG O2 Content 17.0 ABG Base Excess -1.8 Bj Test Positive Oxygen Flow Rate 80 Vent Rate 18 PEEP 10.0 Sodium Potassium Chloride Carbon Dioxide Anion Gap BUN Creatinine Creat Clearance w eGFR Random Glucose Calcium Phosphorus Magnesium Total Bilirubin AST ALT Alkaline Phosphatase Total Protein Albumin 05/21/18 05/21/18 05:30 07:12 WBC RBC Hgb Hct MCV MCH MCHC RDW Plt Count MPV Absolute Neuts (auto) Neutrophils % Neutrophils % (Manual) Band Neutrophils % Lymphocytes % Lymphocytes % (Manual) Monocytes % Monocytes % (Manual) Eosinophils % Eosinophils % (Manual) Basophils % Basophils % (Manual) Myelocytes % (Man) Promyelocytes % (Man) Blast Cells % (Manual) Nucleated RBC % Metamyelocytes Hypochromia Platelet Estimate Polychromasia Poikilocytosis Anisocytosis Microcytosis Macrocytosis Puncture Site Left radial ABG pH 7.34 L ABG pCO2 at Pt Temp 49.3 H ABG pO2 at Pt Temp 79.2 L D ABG HCO3 26.0 ABG O2 Sat (Measured) 95.3 ABG O2 Content 15.3 ABG Base Excess 0.3 Bj Test Positive Oxygen Flow Rate No Vent Rate PEEP Sodium 137 Potassium 3.7 Chloride 102 Carbon Dioxide 29 Anion Gap 5 L BUN 15 Creatinine 0.7 Creat Clearance w eGFR > 60 Random Glucose 174 H Calcium 7.6 L Phosphorus 2.3 L Magnesium 2.5 H Total Bilirubin 0.4 AST 21 ALT 16 Alkaline Phosphatase 47 Total Protein 5.1 L Albumin 2.1 L Active Medications Generic Name Dose Route Start Last Admin Trade Name Freq PRN Reason Stop Dose Admin Albuterol Sulfate 1 amp 05/19/18 11:35 Ventolin 0.083% Nebulizer Soln - NEB Q4H PRN SHORT OF BREATH/WHEEZING Albuterol/Ipratropium 1 amp 05/19/18 12:00 05/20/18 20:20 Duoneb - NEB 1 amp RQID BRIE Administration Amlodipine Besylate 5 mg 05/20/18 10:00 Norvasc - PO DAILY BRIE Chlorhexidine Gluconate 1 applic 05/19/18 22:00 05/20/18 21:10 Hibiclens For Decolonization - TP 1 applic HS BRIE Administration Enoxaparin Sodium 40 mg 05/21/18 10:00 Lovenox - SQ DAILY BRIE Piperacillin Sod/Tazobactam 50 mls @ 100 mls/hr 05/19/18 13:30 05/21/18 01:06 Sod 3.375 gm/ Dextrose IVPB 100 mls/hr Q8H-IV BRIE Administration Protocol Vancomycin HCl 750 mg/ 250 mls @ 250 mls/hr 05/19/18 14:00 05/21/18 02:07 Dextrose IVPB 250 mls/hr Q12H BRIE Administration Protocol Propofol 1,000,000 mcg in 100 mls @ 1.497 mls/hr 05/19/18 13:45 05/20/18 15: 12 Diprivan - IVPB Not Given TITR BRIE Protocol 5 MCG/KG/MIN Fentanyl 500 mcg/ Dextrose 100 mls @ 10 mls/hr 05/19/18 14:30 05/20/18 11:00 IVPB 25 mcg/hr TITR BRIE 5 mls/hr Administration Protocol 50 MCG/HR Midazolam HCl 100 mg/ Sodium 100 mls @ 1 mls/hr 05/19/18 14:45 05/21/18 03:35 Chloride IVPB 3 mg/hr TITR BRIE 3 mls/hr Administration Protocol 1 MG/HR Phenylephrine HCl 20,000 mcg/ 250 mls @ 75 mls/hr 05/19/18 14:45 05/20/18 15: 13 Sodium Chloride IVPB Not Given ASDIR BRIE Protocol 100 MCG/MIN Norepinephrine Bitartrate 8, 500 mls @ 18.75 mls/hr 05/19/18 18:45 05/21/18 08:15 000 mcg/ Dextrose IV 6 mcg/min TITR BRIE 22.5 mls/hr Titration Protocol 5 MCG/MIN Sodium Chloride 1,000 mls @ 100 mls/hr 05/20/18 09:45 05/20/18 10:16 Normal Saline - IV 100 mls/hr ASDIR BRIE Administration Potassium Phosphate 20 mm/ 256.6667 mls @ 62.5 mls/hr 05/21/18 08:30 Dextrose IVPB 05/21/18 12:36 ONCE ONE Methylprednisolone Sodium Succinate 60 mg 05/19/18 11:00 05/21/18 03:30 Solu-Medrol - IVPUSH 60 mg Q8H-IV BRIE Administration Mupirocin 1 applic 05/19/18 22:00 05/20/18 21:09 Bactroban Ointment (For Decolonization) - NS 05/24/18 21:59 1 applic BID BRIE Administration Oseltamivir Phosphate 75 mg 05/19/18 22:00 05/20/18 21:10 Tamiflu - GT 05/24/18 21:59 75 mg BID BRIE Administration Pantoprazole Sodium 40 mg 05/19/18 11:45 05/20/18 10:17 Protonix Iv IVPUSH 40 mg DAILY BRIE Administration ASSESSMENT/PLAN: 67 y/o F w/ PMHx COPD on 2L O2, breast and lung Ca, perforated ulcer, prior intubation, p/w lethargy, SOB, increased WOB, found to have b/l infiltrates on CXR. Decompensated and underwent intubation and RIJ central line placement. In ICU in septic shock w/ acute on chronic respiratory failure 2/2 PNA. #CV -RIJ line placed (day 3), on levophed downtitrated from 16 to 6 as of this AM -will add second pressor if needed -poor quality echo, RV systolic pressure elevated #pulmonary -intubated on AC mode, downtitrating FiO2 from 100% to 50% -sedated on fentanyl and midazolam -overcame sedation last night -will attempt to wean this AM -bronchodilators -solumedrol 60 q8h -CXR this AM slightly worse at R base -ABG improved -f/u ABG, CXR #ID -ID following -urine pneumococcal antigens positive -sputum culture positive for alpha hemolytic strep -cont vancomycin/zosyn/tamiflu, further ABx as per ID #FEN -no IVF -monitor and correct electrolytes -osmolite tube feeds #PPx -DVT: Lovenox subq -GI: IV PTX #code -full #dispo -continue to monitor in ICU Visit type - Emergency Visit Emergency Visit: No - New Patient This patient is new to me today: No - Critical Care Critical Care patient: Yes Total Critical Care Time (in minutes): 40 Critical Care Statement: The care of this patient involved high complexity decision making to prevent further life threatening deterioration of the patient 's condition and/or to evaluate & treat vital organ system(s) failure or risk of failure.
[2018-05-21] MEDS ORDERED: PIPERACILLIN/TAZOBACTAM 3.375 GM VIAL IVPB ONE ×2 (09:49→17:30)
[2018-05-21] MEDS ORDERED: DEXTROSE 5%-WATER - 50 ML IVPB ONE ×2 (09:49→17:30)
[2018-05-21] MEDS ORDERED: PT OWN MED DRAWER 7, Y5N ONE (09:49)
[2018-05-21] MEDS: OSELTAMIVIR PHOSPHATE 75 MG CAPSULE GT SCH ×2 (09:56→21:52)
[2018-05-21] MEDS: PANTOPRAZOLE SODIUM 40 MG VIAL IVPUSH SCH (09:56)
[2018-05-21] MEDS: ENOXAPARIN NA (PORCINE) 40 MG/0.4 ML DISP.SYRIN SQ SCH (09:58)
[2018-05-21] MEDS: MUPIROCIN 2% TOPICAL OINTMENT FOR DECOLONIZATION NS SCH ×2 (09:59→21:52)
--- NOTE | 2018-05-21 11:47 | PN ---
Teaching Attending Note Name of Resident: Dhruv Strong ATTENDING PHYSICIAN STATEMENT I saw and evaluated the patient. I reviewed the resident's note and discussed the case with the resident. I agree with the resident's findings and plan as documented. SUBJECTIVE: Patient seen and examined in the ICU. Remains intubated and sedated. AC Mode of vent, 50% FiO2. On 4 mcq NE for hemodynamic support. CXR: ETT in position / increasing RLL opacity Intake & Output 05/18/18 05/19/18 05/20/18 05/21/18 23:59 23:59 23:59 23:59 Intake Total 3746 5187 1596 Output Total 500 2600 500 Balance 3246 2587 1096 Weight 109 lb 15.994 oz 109 lb 9.6 oz 113 lb 6.4 oz Last Vital Signs Temp Pulse Resp BP Pulse Ox 98.1 F 94 H 22 H 124/80 99 05/21/18 09:00 05/21/18 11:42 05/21/18 11:42 05/21/18 11:42 05/21/18 08:00 Active Medications Albuterol Sulfate (Ventolin 0.083% Nebulizer Soln -) 1 amp NEB Q4H PRN PRN Reason: SHORT OF BREATH/WHEEZING Albuterol/Ipratropium (Duoneb -) 1 amp NEB RQID BRIE Last Admin: 05/21/18 08:56 Dose: 1 amp Amlodipine Besylate (Norvasc -) 5 mg PO DAILY [facility] Chlorhexidine Gluconate (Hibiclens For Decolonization -) 1 applic TP HS [facility] Last Admin: 05/20/18 21:10 Dose: 1 applic Enoxaparin Sodium (Lovenox -) 40 mg SQ DAILY BRIE Last Admin: 05/21/18 09:58 Dose: 40 mg Piperacillin Sod/Tazobactam (Sod 3.375 gm/ Dextrose) 50 mls @ 100 mls/hr IVPB Q8H-IV BRIE; Protocol Last Admin: 05/21/18 09:51 Dose: 100 mls/hr Vancomycin HCl 750 mg/ (Dextrose) 250 mls @ 250 mls/hr IVPB Q12H BRIE; Protocol Last Admin: 05/21/18 02:07 Dose: 250 mls/hr Propofol (Diprivan -) 1,000,000 mcg in 100 mls @ 1.497 mls/hr IVPB TITR BRIE; Protocol Last Admin: 05/20/18 15:12 Dose: Not Given Fentanyl 500 mcg/ Dextrose 100 mls @ 10 mls/hr IVPB TITR BRIE; Protocol Last Titration: 05/21/18 11:39 Dose: 25 mcg/hr, 5 mls/hr Midazolam HCl 100 mg/ Sodium (Chloride) 100 mls @ 1 mls/hr IVPB TITR BRIE; Protocol Last Titration: 05/21/18 11:39 Dose: 2 mg/hr, 2 mls/hr Norepinephrine Bitartrate 8, (000 mcg/ Dextrose) 500 mls @ 18.75 mls/hr IV TITR BRIE; Protocol Last Titration: 05/21/18 11:30 Dose: 2 mcg/min, 7.5 mls/hr Sodium Chloride (Normal Saline -) 1,000 mls @ 100 mls/hr IV ASDIR BRIE Last Admin: 05/20/18 10:16 Dose: 100 mls/hr Potassium Phosphate 20 mm/ (Dextrose) 256.6667 mls @ 62.5 mls/hr IVPB ONCE ONE Stop: 05/21/18 12:36 Last Admin: 05/21/18 09:59 Dose: 62.5 mls/hr Methylprednisolone Sodium Succinate (Solu-Medrol -) 60 mg IVPUSH Q8H-IV BRIE Last Admin: 05/21/18 09:52 Dose: 60 mg Mupirocin (Bactroban Ointment (For Decolonization) -) 1 applic NS BID BRIE Stop: 05/24/18 21:59 Last Admin: 05/21/18 09:59 Dose: 1 applic Oseltamivir Phosphate (Tamiflu -) 75 mg GT BID [facility] Stop: 05/24/18 21:59 Last Admin: 05/21/18 09:56 Dose: 75 mg Pantoprazole Sodium (Protonix Iv) 40 mg IVPUSH DAILY [facility] Last Admin: 05/21/18 09:56 Dose: 40 mg OBJECTIVE: GENERAL: Intubated and sedated HEAD: Normal with no signs of trauma. EYES: sclera anicteric, conjunctiva clear. No lid lag. EARS, NOSE, THROAT: Ears normal, nares patent, oropharynx clear without exudates. Moist mucous membranes. NECK: Normal range of motion, supple without lymphadenopathy, JVD, or masses. LUNGS: Intubated, slightly improved expiratory wheeze HEART: Regular rate and rhythm, normal S1 and S2 without murmur, rub or gallop. ABDOMEN: Soft, nontender, not distended, normoactive bowel sounds, no guarding, no rebound, no masses. No hepatomegaly or splenomegaly. MUSCULOSKELETAL: Normal range of motion at all joints. No bony deformities or tenderness. No CVA tenderness. UPPER EXTREMITIES: 2+ pulses, warm, well-perfused. No cyanosis. No clubbing. No peripheral edema. LOWER EXTREMITIES: 2+ pulses, warm, well-perfused. No calf tenderness. No peripheral edema. NEUROLOGICAL: Sedated SKIN: Warm, dry, normal turgor, no rashes or lesions noted, normal capillary refill. Laboratory Results - last 24 hr 05/20/18 05/21/18 05/21/18 05:15 05:30 05:30 WBC 20.9 H RBC 4.02 Hgb 10.4 L Hct 33.8 MCV 84.0 MCH 25.9 MCHC 30.9 L RDW 15.5 Plt Count 156 MPV 10.8 Absolute Neuts (auto) 19.2 H Neutrophils % 91.7 H Neutrophils % (Manual) 48.9 Band Neutrophils % 21.1 Lymphocytes % 0.9 L Lymphocytes % (Manual) 2.2 L D Monocytes % 7.0 Monocytes % (Manual) 11 H D Eosinophils % 0.0 Eosinophils % (Manual) 0.0 Basophils % 0.4 Basophils % (Manual) 0.0 Myelocytes % (Man) 3 H D Promyelocytes % (Man) 0 Blast Cells % (Manual) 0 Nucleated RBC % 0 Metamyelocytes 8 H D Hypochromia 0 Platelet Estimate Adequate Polychromasia 0 Poikilocytosis 0 Anisocytosis No Result Required. Microcytosis No Result Required. Macrocytosis No Result Required. Puncture Site ABG pH ABG pCO2 at Pt Temp ABG pO2 at Pt Temp ABG HCO3 ABG O2 Sat (Measured) ABG O2 Content ABG Base Excess Bj Test Oxygen Flow Rate Sodium 137 Potassium 3.7 Chloride 102 Carbon Dioxide 29 Anion Gap 5 L BUN 15 Creatinine 0.7 Creat Clearance w eGFR > 60 Random Glucose 174 H Calcium 7.6 L Phosphorus 2.3 L Magnesium 2.5 H Total Bilirubin 0.4 AST 21 ALT 16 Alkaline Phosphatase 47 Total Protein 5.1 L Albumin 2.1 L 01/04/19 07:12 WBC RBC Hgb Hct MCV MCH MCHC RDW Plt Count MPV Absolute Neuts (auto) Neutrophils % Neutrophils % (Manual) Band Neutrophils % Lymphocytes % Lymphocytes % (Manual) Monocytes % Monocytes % (Manual) Eosinophils % Eosinophils % (Manual) Basophils % Basophils % (Manual) Myelocytes % (Man) Promyelocytes % (Man) Blast Cells % (Manual) Nucleated RBC % Metamyelocytes Hypochromia Platelet Estimate Polychromasia Poikilocytosis Anisocytosis Microcytosis Macrocytosis Puncture Site Left radial ABG pH 7.34 L ABG pCO2 at Pt Temp 49.3 H ABG pO2 at Pt Temp 79.2 L D ABG HCO3 26.0 ABG O2 Sat (Measured) 95.3 ABG O2 Content 15.3 ABG Base Excess 0.3 Bj Test Positive Oxygen Flow Rate No Sodium Potassium Chloride Carbon Dioxide Anion Gap BUN Creatinine Creat Clearance w eGFR Random Glucose Calcium Phosphorus Magnesium Total Bilirubin AST ALT Alkaline Phosphatase Total Protein Albumin ASSESSMENT/PLAN: Acute Respiratory Failure Bilateral PNA COPD Previous intubation History of Breast and Lung CA, S/P right lung resection History of gastric ulcer with perforation. AC Mode of vent Daily sedation vacation BD TX standing and PRN Medrol ABX coverage VTE prophylaxis Aspiration precautions Follow sputum Follow urinary antigen Enteral feeds Wean pressors as tolerated IVF ICU monitoring for tenuous respiratory status Dr Harris Critical care time spent in reviewing chart, evaluating patient and formulating plan - 36 minutes.
[2018-05-21 12:41] LABS: ACANTHOCYTES 1+; ANISOCYTOSIS 1+; MACROCYTOSIS 0; OVALOCYTE 2+; PLATELET ESTIMATE DECREASED; TARGET CELLS 1+
[2018-05-21] MEDS: PROPOFOL 1,000,000 MCG/100 ML VIAL IVPB SCH (15:36)
[2018-05-21] MEDS: SODIUM CHLORIDE 1,000 ML IV SCH (15:40)
--- NOTE | 2018-05-21 15:50 | PN ---
Physical Exam: SUBJECTIVE: Patient seen and examined at bedside this morning. Patient intubated and sedated. On Levaquin 6mcg/min, Midazolam 4mg/hr, Fentanyl 25mcg/hr Vent settings: 18/330/8/50 OBJECTIVE: Vital Signs Period Temp Pulse Resp BP Sys/Sawyer Pulse Ox Last 24 Hr 96.7 F-99.0 F 83-104 10-22 86-124/52-80 96-99 GENERAL: Patient intubated and sedated. Arousable by sternal rub, opens eyes and squeezed hand when asked to. HEAD: Normal with no signs of trauma. HEENT: PERRLA, dry mucous membranes NECK: soft, supple, trachea midline LUNGS: Coarse breath sounds bilaterally HEART: Regular rate and rhythm, S1, S2 without murmur, rub or gallop. ABDOMEN: Soft, nontender, nondistended, normoactive bowel sounds EXTREMITIES: 2+ pulses, warm, well-perfused, no edema. Laboratory Results - last 24 hr 05/21/18 05/21/18 05/21/18 05:30 05:30 07:12 WBC 20.9 H RBC 4.02 Hgb 10.4 L Hct 33.8 MCV 84.0 MCH 25.9 MCHC 30.9 L RDW 15.5 Plt Count 156 MPV 10.8 Absolute Neuts (auto) 19.2 H Neutrophils % 91.7 H Neutrophils % (Manual) 78.4 Band Neutrophils % 6.9 Lymphocytes % 0.9 L Lymphocytes % (Manual) 1.0 L D Monocytes % 7.0 Monocytes % (Manual) 7 Eosinophils % 0.0 Eosinophils % (Manual) 0.0 Basophils % 0.4 Basophils % (Manual) 0.0 Myelocytes % (Man) 0 D Promyelocytes % (Man) 0 Blast Cells % (Manual) 0 Nucleated RBC % 0 Metamyelocytes 3 H D Hypochromia 1+ Platelet Estimate Decreased Platelet Comment Present Polychromasia 1+ Poikilocytosis 0 Anisocytosis 1+ Microcytosis 0 Macrocytosis 0 Target Cells 1+ Ovalocytes 2+ Rosendo Cells 1+ Acanthocytes (Spur) 1+ Puncture Site Left radial ABG pH 7.34 L ABG pCO2 at Pt Temp 49.3 H ABG pO2 at Pt Temp 79.2 L D ABG HCO3 26.0 ABG O2 Sat (Measured) 95.3 ABG O2 Content 15.3 ABG Base Excess 0.3 Bj Test Positive Oxygen Flow Rate No Sodium 137 Potassium 3.7 Chloride 102 Carbon Dioxide 29 Anion Gap 5 L BUN 15 Creatinine 0.7 Creat Clearance w eGFR > 60 Random Glucose 174 H Calcium 7.6 L Phosphorus 2.3 L Magnesium 2.5 H Total Bilirubin 0.4 AST 21 ALT 16 Alkaline Phosphatase 47 Total Protein 5.1 L Albumin 2.1 L Vancomycin Pre-Dose 05/21/18 12:55 WBC RBC Hgb Hct MCV MCH MCHC RDW Plt Count MPV Absolute Neuts (auto) Neutrophils % Neutrophils % (Manual) Band Neutrophils % Lymphocytes % Lymphocytes % (Manual) Monocytes % Monocytes % (Manual) Eosinophils % Eosinophils % (Manual) Basophils % Basophils % (Manual) Myelocytes % (Man) Promyelocytes % (Man) Blast Cells % (Manual) Nucleated RBC % Metamyelocytes Hypochromia Platelet Estimate Platelet Comment Polychromasia Poikilocytosis Anisocytosis Microcytosis Macrocytosis Target Cells Ovalocytes [place] Cells Acanthocytes (Spur) Puncture Site ABG pH ABG pCO2 at Pt Temp ABG pO2 at Pt Temp ABG HCO3 ABG O2 Sat (Measured) ABG O2 Content ABG Base Excess Bj Test Oxygen Flow Rate Sodium Potassium Chloride Carbon Dioxide Anion Gap BUN Creatinine Creat Clearance w eGFR Random Glucose Calcium Phosphorus Magnesium Total Bilirubin AST ALT Alkaline Phosphatase Total Protein Albumin Vancomycin Pre-Dose 5.6 L Active Medications Generic Name Dose Route Start Last Admin Trade Name Freq PRN Reason Stop Dose Admin Albuterol Sulfate 1 amp 05/19/18 11:35 Ventolin 0.083% Nebulizer Soln - NEB Q4H PRN SHORT OF BREATH/WHEEZING Albuterol/Ipratropium 1 amp 05/19/18 12:00 05/21/18 11:24 Duoneb - NEB 1 amp RQID BRIE Administration Amlodipine Besylate 5 mg 05/20/18 10:00 Norvasc - PO DAILY [facility] Chlorhexidine Gluconate 1 applic 05/19/18 22:00 05/20/18 21:10 Hibiclens For Decolonization - TP 1 applic HS BRIE Administration Enoxaparin Sodium 40 mg 05/21/18 10:00 05/21/18 09:58 Lovenox - SQ 40 mg DAILY BRIE Administration Piperacillin Sod/Tazobactam 50 mls @ 100 mls/hr 05/19/18 13:30 05/21/18 09:51 Sod 3.375 gm/ Dextrose IVPB 100 mls/hr Q8H-IV [facility]RIE Administration Protocol Vancomycin HCl 750 mg/ 250 mls @ 250 mls/hr 05/19/18 14:00 05/21/18 15:35 Dextrose IVPB 250 mls/hr Q12H BRIE Administration Protocol Propofol 1,000,000 mcg in 100 mls @ 1.497 mls/hr 05/19/18 13:45 05/21/18 15: 36 Diprivan - IVPB Not Given TITR BRIE Protocol 5 MCG/KG/MIN Fentanyl 500 mcg/ Dextrose 100 mls @ 10 mls/hr 05/19/18 14:30 05/21/18 11:39 IVPB 25 mcg/hr TITR BRIE 5 mls/hr Titration Protocol 50 MCG/HR Midazolam HCl 100 mg/ Sodium 100 mls @ 1 mls/hr 05/19/18 14:45 05/21/18 11:39 Chloride IVPB 2 mg/hr TITR BRIE 2 mls/hr Titration Protocol 1 MG/HR Norepinephrine Bitartrate 8, 500 mls @ 18.75 mls/hr 05/19/18 18:45 05/21/18 11:30 000 mcg/ Dextrose IV 2 mcg/min TITR BRIE 7.5 mls/hr Titration Protocol 5 MCG/MIN Sodium Chloride 1,000 mls @ 100 mls/hr 05/20/18 09:45 05/21/18 15:40 Normal Saline - IV 100 mls/hr ASDIR BRIE Administration Methylprednisolone Sodium Succinate 60 mg 05/19/18 11:00 05/21/18 09:52 Solu-Medrol - IVPUSH 60 mg Q8H-IV BRIE Administration Mupirocin 1 applic 05/19/18 22:00 05/21/18 09:59 Bactroban Ointment (For Decolonization) - NS 05/24/18 21:59 1 applic BID BRIE Administration Oseltamivir Phosphate 75 mg 05/19/18 22:00 05/21/18 09:56 Tamiflu - GT 05/24/18 21:59 75 mg BID BRIE Administration Pantoprazole Sodium 40 mg 05/19/18 11:45 05/21/18 09:56 Protonix Iv IVPUSH 40 mg DAILY BRIE Administration ASSESSMENT/PLAN: Patient is a 67 year old female with past medical history of COPD with hx of intubation, breast and lung CA, perforated ulcer, HTN, presented with worsening shortness of breath with increased sputum production for a few days. #Acute hypoxic respiratory failure:likely 2/2 COPD exacerbation, bilateral pneumonia -Intubated and sedated -On Midazolam and Fentanyl -Downtitrating FiO2 -Duonebs RQID, Albuterol q4h PRN -IV Methylprednisolone 60mg q8h -Azithromycin 500mg daily -ABG, CXR daily #Septic shock likely 2/2 pneumonia -Titrating down IV Levophed -ID (Dr. Baird) consulted. Recommendations appreciated. -Vancomycin 750mg q12h -Zosyn 3.375mg q8h -Oseltamivir 75mg BID -Urine pneumococcal antigens positive -Sputum cx: moderate gram + cocci -Vanc level #HTN -Hold anti-hypertensives -on Vasopressors #FEN -Not on any standing fluids -Electrolytes wnl, routine bmp monitoring -Tube feed osmolite 05/19 #Prophylaxis -DVT: Lovenox 50 mg sq BID -GI: IV protonix 40mg daily #Disposition -full code -Admit to ICU for closer monitoring Visit type - Emergency Visit Emergency Visit: Yes ED Registration Date: 05/19/18 Care time: The patient presented to the Emergency Department on the above date and was hospitalized for further evaluation of their emergent condition. - New Patient This patient is new to me today: No - Critical Care Critical Care patient: Yes Total Critical Care Time (in minutes): 40 Critical Care Statement: The care of this patient involved high complexity decision making to prevent further life threatening deterioration of the patient 's condition and/or to evaluate & treat vital organ system(s) failure or risk of failure.
--- NOTE | 2018-05-21 16:07 | PN ---
Progress Note (short form) - Note Progress Note: intubated sedated on pressors-being tapered Vital Signs Period Temp Pulse Resp BP Sys/Sawyer Pulse Ox Last 24 Hr 96.7 F-99.0 F 83-104 10-22 86-124/52-80 96-99 cor-rrr lungs decreased bs at bases abd soft,nt ext no edema CBC, BMP 05/21/18 05:30 05/21/18 05:30 Microbiology 05/19/18 15:09 Sputum - Endotrachea Suction/Ventilator Gram Stain - Final 05/19/18 15:09 Sputum - Endotrachea Suction/Ventilator Sputum Culture - Preliminary Alpha Hemolytic Streptococcus 05/19/18 08:18 Blood - Peripheral Venous Blood Culture - Preliminary NO GROWTH OBTAINED AFTER 48 HOURS, INCUBATION TO CONTINUE FOR 3 DAYS. 05/19/18 08:18 Blood - Peripheral Venous Blood Culture - Preliminary NO GROWTH OBTAINED AFTER 48 HOURS, INCUBATION TO CONTINUE FOR 3 DAYS. 05/19/18 09:00 Nasopharyngeal Aspirate Respiratory Virus (PCR) - Preliminary 05/19/18 15:09 Urine - Urine - Catheterized Legionella Antigen - Final 05/19/18 15:09 Urine - Urine - Catheterized Streptococcus pneumoniae Antigen (M - Final 05/19/18 08:30 Urine - Urine Clean Catch Urine Culture - Final NO GROWTH OBTAINED cxray bibasilar infiltrates a/p acute hypoxemic respiratory failure suslpected pneumococcal sepsis bilateral pneumonia empiric tamiflu copd exacerbation history of lung cancer history of breast cancer pcp dr bullock in the evert no recent vaccines per continue vanco/zosyn/tamiflu f/u cultures in am
--- NOTE | 2018-05-21 20:03 | PN ---
Teaching Attending Note Name of Resident: Lore Vega ATTENDING PHYSICIAN STATEMENT I saw and evaluated the patient. I reviewed the resident's note and discussed the case with the resident. I agree with the resident's findings and plan as documented. SUBJECTIVE: patient in icu. on vent. continue as per ICU team. daily weaning trials. OBJECTIVE: Vital Signs Temperature 98.6 F 05/21/18 17:00 Pulse Rate 93 H 05/21/18 19:00 Respiratory Rate 23 H 05/21/18 19:01 Blood Pressure 105/73 05/21/18 19:00 O2 Sat by Pulse Oximetry (%) 98 05/21/18 18:21 GENERAL:on the vent. sedated and intubated. HEAD: AT/NC with no signs of trauma. EYES: Pupils equal, round and reactive to light, sclera anicteric, conjunctiva clear. EARS, NOSE, THROAT: on the vent. NECK: no JVD. RIJ line (day 4) LUNGS: intubated ,sedated , decreased breath sounds bl, positive for rhonchi bilaterally. HEART: Regular rate and rhythm, normal S1 and S2 without murmur, rub or gallop. ABDOMEN: Soft, nontender, not distended, normoactive bowel sounds, no guarding. EXTREMITIES: 2+ pulses, no peripheral edema. NEUROLOGICAL: unable to access , due to sedation SKIN: Warm, dry, normal turgor, no rashes appreciated. CBCD WBC 20.9 K/mm3 (4.0-10.0) H 05/21/18 05:30 RBC 4.02 M/mm3 (3.60-5.2) 05/21/18 05:30 Hgb 10.4 GM/dL (10.7-15.3) L 05/21/18 05:30 Hct 33.8 % (32.4-45.2) 05/21/18 05:30 MCV 84.0 fl (80-96) 05/21/18 05:30 MCHC 30.9 g/dl (32.0-36.0) L 05/21/18 05:30 RDW 15.5 % (11.6-15.6) 05/21/18 05:30 Plt Count 156 K/MM3 (134-434) 05/21/18 05:30 MPV 10.8 fl (7.5-11.1) 05/21/18 05:30 CMP Sodium 137 mmol/L (136-145) 05/21/18 05:30 Potassium 3.7 mmol/L (3.5-5.1) 05/21/18 05:30 Chloride 102 mmol/L (98-107) 05/21/18 05:30 Carbon Dioxide 29 mmol/L (21-32) 05/21/18 05:30 Anion Gap 5 MMOL/L (8-16) L 05/21/18 05:30 BUN 15 mg/dL (7-18) 05/21/18 05:30 Creatinine 0.7 mg/dL (0.55-1.3) 05/21/18 05:30 Creat Clearance w eGFR > 60 (>60) 05/21/18 05:30 Random Glucose 174 mg/dL (74-106) H 05/21/18 05:30 Calcium 7.6 mg/dL (8.5-10.1) L 05/21/18 05:30 Total Bilirubin 0.4 mg/dL (0.2-1) 05/21/18 05:30 AST 21 U/L (15-37) 05/21/18 05:30 ALT 16 U/L (13-61) 05/21/18 05:30 Alkaline Phosphatase 47 U/L (45-117) 05/21/18 05:30 Total Protein 5.1 g/dl (6.4-8.2) L 05/21/18 05:30 Albumin 2.1 g/dl (3.4-5.0) L 05/21/18 05:30 CARDIAC ENZYMES Troponin I < 0.02 ng/ml (0.00-0.05) 05/19/18 08:18 Current Medications Generic Name Dose Route Start Last Admin Trade Name Freq PRN Reason Stop Dose Admin Albuterol Sulfate 1 amp 05/19/18 11:35 Ventolin 0.083% Nebulizer Soln - NEB Q4H PRN SHORT OF BREATH/WHEEZING Albuterol/Ipratropium 1 amp 05/19/18 12:00 05/21/18 16:27 Duoneb - NEB 1 amp RQID BRIE Administration Amlodipine Besylate 5 mg 05/20/18 10:00 Norvasc - PO DAILY [facility] Chlorhexidine Gluconate 1 applic 05/19/18 22:00 05/20/18 21:10 Hibiclens For Decolonization - TP 1 applic HS BRIE Administration Enoxaparin Sodium 40 mg 05/21/18 10:00 05/21/18 09:58 Lovenox - SQ 40 mg DAILY BRIE Administration Piperacillin Sod/Tazobactam 50 mls @ 100 mls/hr 05/19/18 13:30 05/21/18 17:33 Sod 3.375 gm/ Dextrose IVPB 100 mls/hr Q8H-IV BRIE Administration Protocol Propofol 1,000,000 mcg in 100 mls @ 1.497 mls/hr 05/19/18 13:45 05/21/18 15: 36 Diprivan - IVPB Not Given TITR BRIE Protocol 5 MCG/KG/MIN Fentanyl 500 mcg/ Dextrose 100 mls @ 10 mls/hr 05/19/18 14:30 05/21/18 16:08 IVPB Not Given TITR BRIE Protocol 50 MCG/HR Midazolam HCl 100 mg/ Sodium 100 mls @ 1 mls/hr 05/19/18 14:45 05/21/18 16:08 Chloride IVPB Not Given TITR BRIE Protocol 1 MG/HR Norepinephrine Bitartrate 8, 500 mls @ 18.75 mls/hr 05/19/18 18:45 05/21/18 17:00 000 mcg/ Dextrose IV 2 mcg/min TITR BRIE 7.5 mls/hr Titration Protocol 5 MCG/MIN Sodium Chloride 1,000 mls @ 100 mls/hr 05/20/18 09:45 05/21/18 15:40 Normal Saline - IV 100 mls/hr ASDIR BRIE Administration Vancomycin HCl 1,000 mg in 250 mls @ 166.667 mls/hr 05/22/18 02:00 Vancomycin (Pre-Docked) IVPB Q12H BRIE Protocol Methylprednisolone Sodium Succinate 60 mg 05/19/18 11:00 05/21/18 17:32 Solu-Medrol - IVPUSH 60 mg Q8H-IV BRIE Administration Mupirocin 1 applic 05/19/18 22:00 05/21/18 09:59 Bactroban Ointment (For Decolonization) - NS 05/24/18 21:59 1 applic BID BRIE Administration Oseltamivir Phosphate 75 mg 05/19/18 22:00 05/21/18 09:56 Tamiflu - GT 05/24/18 21:59 75 mg BID BRIE Administration Pantoprazole Sodium 40 mg 05/19/18 11:45 05/21/18 09:56 Protonix Iv IVPUSH 40 mg DAILY BRIE Administration Home Medications Medication Instructions Recorded Salmeterol/Fluticasone [Advair 1 inh PO BID 03/16/12 250Mcg/50Mcg] Albuterol 0.083% Nebulizer Bhavana 1 amp NEB PRN PRN 05/19/18 [Ventolin 0.083% Nebulizer Soln -] Amlodipine Besylate [Norvasc -] 5 mg PO DAILY 05/19/18 Microbiology 05/19/18 15:09 Sputum - Endotrachea Suction/Ventilator Gram Stain - Final 05/19/18 15:09 Sputum - Endotrachea Suction/Ventilator Sputum Culture - Preliminary Streptococcus Pneumoniae Staphylococcus Latex Coag Pos 05/19/18 08:18 Blood - Peripheral Venous Blood Culture - Preliminary NO GROWTH OBTAINED AFTER 72 HOURS, INCUBATION TO CONTINUE FOR 2 DAYS. 05/19/18 08:18 Blood - Peripheral Venous Blood Culture - Preliminary NO GROWTH OBTAINED AFTER 72 HOURS, INCUBATION TO CONTINUE FOR 2 DAYS. 05/19/18 09:00 Nasopharyngeal Aspirate Respiratory Virus (PCR) - Preliminary 05/19/18 15:09 Urine - Urine - Catheterized Legionella Antigen - Final 05/19/18 15:09 Urine - Urine - Catheterized Streptococcus pneumoniae Antigen (M - Final 05/19/18 08:30 Urine - Urine Clean Catch Urine Culture - Final NO GROWTH OBTAINED CXR: left base infiltrate with effusion. ASSESSMENT AND PLAN: The patient is a 67 year old female with a significant PMHx of COPD on 2 L home Oxygen at home with previous hx of intubation, HTN, left sided lung Ca and right sided breast cancer s/p Rtx , presented with SOB and cough x few days. patient was placed on Bipap in ED, and admitted to icu for further care. # Acute hypoxic hypercapnic respiratory failure s/p intubation on the vent: Due to Pneumonia / COPD exacerbation on IV antibiotics continue. further management as per ICU team, on pressors now, On fentanyl/ midazolam drip/propofol continue. On levophed titrate as needed, off phenelephrine now # Acute COPD exacerbation s/ p intubation : on Duonebs, solu-medrol IV, continue cureent managment. daily weaning trials as per ICU team # Acute pneumonia growing strept.pneumonia ,with left sided effusion: continue current IV antibiotics Zosyn/ vancomycin.ID on the case. urinary antigen for strept. pneumo and negative for legionella. #HTN: Hold Norvasc 5 mg since hypotensive . DVT PPX:Heparin sq GI Px: Protonix px tamiflu as per id
[2018-05-21] MEDS: CHLORHEXIDINE GLUCONATE 4% CLEANSER FOR DECOLONIZATION TP SCH (21:52)
[2018-05-22] MEDS: NOREPINEPHRINE BITARTRATE 8,000 MCG in DEXTROSE 5%-WATER - 492 ML IV SCH ×2 (00:16→21:44)
[2018-05-22] MEDS: PIPERACILLIN/TAZOB 3.375 GM 3.375 GM in DEXTROSE 5%-WATER - 50 ML IVPB SCH ×3 (01:22→17:00)
[2018-05-22] MEDS ORDERED: PIPERACILLIN/TAZOBACTAM 3.375 GM VIAL IVPB ONE ×3 (01:42→16:46)
[2018-05-22] MEDS ORDERED: DEXTROSE 5%-WATER - 50 ML IVPB ONE ×3 (01:43→16:46)
[2018-05-22] MEDS ORDERED: NOREPINEPHRINE BITARTRATE 4 MG/4 ML ML IV ONE (02:00)
[2018-05-22] MEDS ORDERED: fentaNYL CITRATE 250 MCG/5 ML VIAL ONE ×3 (02:00→18:50)
[2018-05-22] MEDS: VANCOMYCIN 1 GRAM (PRE-DOCKED) 1,000 MG/250 ML BAG IVPB SCH ×2 (02:14→13:11)
[2018-05-22] MEDS: methylPREDNISolone NA SUCC 40 MG/1 ML VIAL IVPUSH SCH ×3 (02:14→17:00)
[2018-05-22] MEDS ORDERED: MIDAZOLAM 100 MG/100 ML MG IVPB ONE (05:23)
[2018-05-22 05:51] LABS: BASO % 0.2 % (0-2.0); EOS % 0.1 % (0-4.5); HEMATOCRIT 31.4 % (32.4-45.2); HEMOGLOBIN 9.8 GM/dL (10.7-15.3); LYMPH % 0.4 % (8-40); MCH 26.2 pg (25.7-33.7); MEAN CELL VOLUME 84.5 fl (80-96); MEAN PLT VOLUME 9.9 fl (7.5-11.1); MONO % 4.9 % (3.8-10.2); NEUT % 94.4 % (42.8-82.8); PLATELET COUNT 162 K/MM3 (134-434); RBC 3.72 M/mm3 (3.60-5.2); RDW 15.3 % (11.6-15.6); WHITE BLOOD COUNT 17.1 K/mm3 (4.0-10.0)
[2018-05-22 05:54] LABS: ARTERIAL BLD GAS O2 SATURATION 95.7 % (90-98.9); ARTERIAL BLOOD GAS BASE EXCESS 0.5 meq/l (-2-2); ARTERIAL BLOOD GAS PO2 82.8 mmHg (80-100)
[2018-05-22 05:55] LABS: ALLENS TEST POSITIVE; ARTERIAL BLOOD GAS PCO2 54.6 mmHg (35-45); ARTERIAL BLOOD GAS pH 7.31 (7.35-7.45)
[2018-05-22 06:34] LABS: ALBUMIN 1.9 g/dl (3.4-5.0); ALK PHOS 57 U/L (45-117); ANION GAP 4 MMOL/L (8-16); BILIRUBIN,TOTAL 0.4 mg/dL (0.2-1); BLOOD UREA NITROGEN 19 mg/dL (7-18); CALCIUM 7.4 mg/dL (8.5-10.1); CHLORIDE 103 mmol/L (98-107); CO2 29 mmol/L (21-32); CREATININE 0.7 mg/dL (0.55-1.3); GLUCOSE,RANDOM 221 mg/dL (74-106); MAGNESIUM 2.7 mg/dL (1.8-2.4); PHOSPHOROUS 2.2 mg/dL (2.5-4.9); SGOT/AST 50 U/L (15-37); SGPT/ALT 38 U/L (13-61); SODIUM 135 mmol/L (136-145)
[2018-05-22] MEDS ORDERED: NAPH,MB-DB/K PH,MBDB POWDER PACKET PO ONE (07:42)
[2018-05-22] MEDS ORDERED: POTASSIUM PHOSPHATE 30 MM in SODIUM CHLORIDE 250 ML IVPB ONE (07:43)
[2018-05-22] MEDS ORDERED: SODIUM PHOSPHATE - 40 MM in DEXTROSE 5%-WATER - 250 ML IVPB ONE (07:44)
[2018-05-22] MEDS: ALBUTEROL SO4 2.5/IPRATROPIUM 0.5 INH SOL 3 ML VIAL.NEB. NEB SCH ×4 (08:00→21:00)
[2018-05-22] MEDS: PANTOPRAZOLE SODIUM 40 MG VIAL IVPUSH SCH (09:09)
[2018-05-22] MEDS: SODIUM CHLORIDE 1,000 ML IV SCH ×2 (09:10→21:42)
[2018-05-22] MEDS: MUPIROCIN 2% TOPICAL OINTMENT FOR DECOLONIZATION NS SCH ×2 (09:11→21:41)
[2018-05-22] MEDS: ENOXAPARIN NA (PORCINE) 40 MG/0.4 ML DISP.SYRIN SQ SCH (09:11)
[2018-05-22] MEDS ORDERED: PT OWN MED DRAWER 7, Y5N ONE ×2 (09:13→21:30)
[2018-05-22] MEDS: OSELTAMIVIR PHOSPHATE 75 MG CAPSULE GT SCH ×2 (09:13→21:50)
--- NOTE | 2018-05-22 09:31 | PN ---
Teaching Attending Note Name of Resident: Dhruv Strong ATTENDING PHYSICIAN STATEMENT I saw and evaluated the patient. I reviewed the resident's note and discussed the case with the resident. I agree with the resident's findings and plan as documented. SUBJECTIVE: Patient seen and examined in the ICU. Remains intubated and sedated. AC Mode of vent, 50% FiO2. Currently off NE for hemodynamic support. CXR: ETT in position / improving bilateral infiltrates Intake & Output 05/19/18 05/20/18 05/21/18 05/22/18 23:59 23:59 23:59 23:59 Intake Total 3746 5187 4825 1736 Output Total 500 2600 1650 600 Balance 3246 2587 3175 1136 Weight 109 lb 15.994 oz 109 lb 9.6 oz 113 lb 6.4 oz 119 lb 11.376 oz Last Vital Signs Temp Pulse Resp BP Pulse Ox 98.1 F 76 17 102/67 98 05/22/18 06:00 05/22/18 08:00 05/22/18 08:00 05/22/18 08:00 05/21/18 21:00 Active Medications Albuterol Sulfate (Ventolin 0.083% Nebulizer Soln -) 1 amp NEB Q4H PRN PRN Reason: SHORT OF BREATH/WHEEZING Albuterol/Ipratropium (Duoneb -) 1 amp NEB RQID [facility] Last Admin: 05/21/18 20:24 Dose: 1 amp Amlodipine Besylate (Norvasc -) 5 mg PO DAILY [facility] Chlorhexidine Gluconate (Hibiclens For Decolonization -) 1 applic TP HS [facility] Last Admin: 05/21/18 21:52 Dose: 1 applic Enoxaparin Sodium (Lovenox -) 40 mg SQ DAILY [facility] Last Admin: 05/22/18 09:11 Dose: 40 mg Piperacillin Sod/Tazobactam (Sod 3.375 gm/ Dextrose) 50 mls @ 100 mls/hr IVPB Q8H-IV [facility]; Protocol Last Admin: 05/22/18 09:09 Dose: 100 mls/hr Propofol (Diprivan -) 1,000,000 mcg in 100 mls @ 1.497 mls/hr IVPB TITR [facility]; Protocol Last Admin: 05/21/18 15:36 Dose: Not Given Fentanyl 500 mcg/ Dextrose 100 mls @ 10 mls/hr IVPB TITR [facility]; Protocol Last Titration: 05/22/18 06:30 Dose: 25 mcg/hr, 5 mls/hr Midazolam HCl 100 mg/ Sodium (Chloride) 100 mls @ 1 mls/hr IVPB TITR [facility]; Protocol Last Admin: 05/21/18 16:08 Dose: Not Given Norepinephrine Bitartrate 8, (000 mcg/ Dextrose) 500 mls @ 18.75 mls/hr IV TITR [facility]; Protocol Last Admin: 05/22/18 00:16 Dose: Not Given Sodium Chloride (Normal Saline -) 1,000 mls @ 100 mls/hr IV ASDIR [facility] Last Admin: 05/22/18 09:10 Dose: 100 mls/hr Vancomycin HCl (Vancomycin (Pre-Docked)) 1,000 mg in 250 mls @ 166.667 mls/hr IVPB Q12H [facility]; Protocol Last Admin: 05/22/18 02:14 Dose: 166.667 mls/hr Sodium Phosphate 40 mm/ (Dextrose) 263.3333 mls @ 62.5 mls/hr IVPB ONCE ONE Stop: 05/22/18 11:56 Last Admin: 05/22/18 08:04 Dose: 62.5 mls/hr Methylprednisolone Sodium Succinate (Solu-Medrol -) 60 mg IVPUSH Q8H-IV [facility] Last Admin: 05/22/18 09:09 Dose: 60 mg Mupirocin (Bactroban Ointment (For Decolonization) -) 1 applic NS BID [facility] Stop: 05/24/18 21:59 Last Admin: 05/22/18 09:11 Dose: 1 applic Oseltamivir Phosphate (Tamiflu -) 75 mg GT BID [facility] Stop: 05/24/18 21:59 Last Admin: 05/22/18 09:13 Dose: 75 mg Pantoprazole Sodium (Protonix Iv) 40 mg IVPUSH DAILY [facility] Last Admin: 05/22/18 09:09 Dose: 40 mg GENERAL: Intubated and sedated HEAD: Normal with no signs of trauma. EYES: sclera anicteric, conjunctiva clear. No lid lag. EARS, NOSE, THROAT: Ears normal, nares patent, oropharynx clear without exudates. Moist mucous membranes. NECK: Normal range of motion, supple without lymphadenopathy, JVD, or masses. LUNGS: Intubated, slightly improved expiratory wheeze HEART: Regular rate and rhythm, normal S1 and S2 without murmur, rub or gallop. ABDOMEN: Soft, nontender, not distended, normoactive bowel sounds, no guarding, no rebound, no masses. No hepatomegaly or splenomegaly. MUSCULOSKELETAL: Normal range of motion at all joints. No bony deformities or tenderness. No CVA tenderness. UPPER EXTREMITIES: 2+ pulses, warm, well-perfused. No cyanosis. No clubbing. No peripheral edema. LOWER EXTREMITIES: 2+ pulses, warm, well-perfused. No calf tenderness. No peripheral edema. NEUROLOGICAL: Sedated SKIN: Warm, dry, normal turgor, no rashes or lesions noted, normal capillary refill. Laboratory Results - last 24 hr 05/21/18 05/21/18 05/22/18 05:30 12:55 05:30 WBC 17.1 H RBC 3.72 Hgb 9.8 L Hct 31.4 L MCV 84.5 MCH 26.2 MCHC 31.0 L RDW 15.3 Plt Count 162 MPV 9.9 Absolute Neuts (auto) 16.1 H Neutrophils % 94.4 H Neutrophils % (Manual) 78.4 Band Neutrophils % 6.9 Lymphocytes % 0.4 L Lymphocytes % (Manual) 1.0 L D Monocytes % 4.9 Monocytes % (Manual) 7 Eosinophils % 0.1 D Eosinophils % (Manual) 0.0 Basophils % 0.2 Basophils % (Manual) 0.0 Myelocytes % (Man) 0 D Promyelocytes % (Man) 0 Blast Cells % (Manual) 0 Nucleated RBC % 0 Metamyelocytes 3 H D Hypochromia 1+ Platelet Estimate Decreased Platelet Comment Present Polychromasia 1+ Poikilocytosis 0 Anisocytosis 1+ Microcytosis 0 Macrocytosis 0 Target Cells 1+ Ovalocytes 2+ [place] Cells 1+ Acanthocytes (Spur) 1+ Puncture Site ABG pH ABG pCO2 at Pt Temp ABG pO2 at Pt Temp ABG HCO3 ABG O2 Sat (Measured) ABG O2 Content ABG Base Excess Bj Test O2 Delivery Device Oxygen Flow Rate Vent Mode Vent Rate Mechanical Rate PEEP Pressure Support Vent Sodium Potassium Chloride Carbon Dioxide Anion Gap BUN Creatinine Creat Clearance w eGFR Random Glucose Calcium Phosphorus Magnesium Total Bilirubin AST ALT Alkaline Phosphatase Total Protein Albumin Vancomycin Pre-Dose 5.6 L 05/22/18 05/22/18 05:30 06:00 WBC RBC Hgb Hct MCV MCH MCHC RDW Plt Count MPV Absolute Neuts (auto) Neutrophils % Neutrophils % (Manual) Band Neutrophils % Lymphocytes % Lymphocytes % (Manual) Monocytes % Monocytes % (Manual) Eosinophils % Eosinophils % (Manual) Basophils % Basophils % (Manual) Myelocytes % (Man) Promyelocytes % (Man) Blast Cells % (Manual) Nucleated RBC % Metamyelocytes Hypochromia Platelet Estimate Platelet Comment Polychromasia Poikilocytosis Anisocytosis Microcytosis Macrocytosis Target Cells Ovalocytes [place] Cells Acanthocytes (Spur) Puncture Site Left radial ABG pH 7.31 L ABG pCO2 at Pt Temp 54.6 H ABG pO2 at Pt Temp 82.8 ABG HCO3 26.8 H ABG O2 Sat (Measured) 95.7 ABG O2 Content 13.0 L ABG Base Excess 0.5 Bj Test Positive O2 Delivery Device Mech vent Oxygen Flow Rate 50% Vent Mode A/c Vent Rate 18 Mechanical Rate Yes PEEP 8.0 Pressure Support Vent 330 Sodium 135 L Potassium 4.0 Chloride 103 Carbon Dioxide 29 Anion Gap 4 L BUN 19 H Creatinine 0.7 Creat Clearance w eGFR > 60 Random Glucose 221 H Calcium 7.4 L Phosphorus 2.2 L Magnesium 2.7 H Total Bilirubin 0.4 AST 50 H ALT 38 Alkaline Phosphatase 57 Total Protein 5.0 L Albumin 1.9 L Vancomycin Pre-Dose ASSESSMENT/PLAN: Acute Respiratory Failure Bilateral PNA COPD Previous intubation History of Breast and Lung CA, S/P right lung resection History of gastric ulcer with perforation. SBTs as tolerated Daily sedation vacation BD TX standing and PRN Medrol ABX coverage VTE prophylaxis Aspiration precautions Full enteral feeds Tamiflu PPI Monitor off NE as long as the MAP is > [address] Harris Critical care time spent in reviewing chart, evaluating patient and formulating plan - 36 minutes
--- NOTE | 2018-05-22 10:16 | PN ---
Teaching Attending Note ATTENDING PHYSICIAN STATEMENT I saw and evaluated the patient. I reviewed the resident's note and discussed the case with the resident. I agree with the resident's findings and plan as documented. SUBJECTIVE: OBJECTIVE: Vital Signs Temperature 98.1 F 05/22/18 06:00 Pulse Rate 76 05/22/18 08:00 Respiratory Rate 24 H 05/22/18 09:50 Blood Pressure 102/67 05/22/18 08:00 O2 Sat by Pulse Oximetry (%) 98 05/21/18 21:00 GENERAL: AAOx3 , in moderate distress, on BiPap. HEAD: AT/NC with no signs of trauma. EYES: Pupils equal, round and reactive to light, extraocular movements intact, sclera anicteric, conjunctiva clear. EARS, NOSE, THROAT: On Bi-Pap NECK: Normal range of motion, supple , no JVD. LUNGS: decreased breath sounds, positive for wheezes, rhonchi bilaterally , positive for accessory muscle use. HEART: Regular rate and rhythm, normal S1 and S2 without murmur, rub or gallop. ABDOMEN: Soft, nontender, not distended, normoactive bowel sounds, no guarding. EXTREMITIES: 2+ pulses, no peripheral edema. NEUROLOGICAL: Non focal, normal speech, no facial asymmetry. PSYCHIATRIC: Cooperative. Good eye contact. Appropriate mood and affect. SKIN: Warm, dry, normal turgor, no rashes appreciated CBCD WBC 17.1 K/mm3 (4.0-10.0) H 05/22/18 05:30 RBC 3.72 M/mm3 (3.60-5.2) 05/22/18 05:30 Hgb 9.8 GM/dL (10.7-15.3) L 05/22/18 05:30 Hct 31.4 % (32.4-45.2) L 05/22/18 05:30 MCV 84.5 fl (80-96) 05/22/18 05:30 MCHC 31.0 g/dl (32.0-36.0) L 05/22/18 05:30 RDW 15.3 % (11.6-15.6) 05/22/18 05:30 Plt Count 162 K/MM3 (134-434) 05/22/18 05:30 MPV 9.9 fl (7.5-11.1) 05/22/18 05:30 CMP Sodium 135 mmol/L (136-145) L 05/22/18 05:30 Potassium 4.0 mmol/L (3.5-5.1) 05/22/18 05:30 Chloride 103 mmol/L (98-107) 05/22/18 05:30 Carbon Dioxide 29 mmol/L (21-32) 05/22/18 05:30 Anion Gap 4 MMOL/L (8-16) L 05/22/18 05:30 BUN 19 mg/dL (7-18) H 05/22/18 05:30 Creatinine 0.7 mg/dL (0.55-1.3) 05/22/18 05:30 Creat Clearance w eGFR > 60 (>60) 05/22/18 05:30 Random Glucose 221 mg/dL (74-106) H 05/22/18 05:30 Calcium 7.4 mg/dL (8.5-10.1) L 05/22/18 05:30 Total Bilirubin 0.4 mg/dL (0.2-1) 05/22/18 05:30 AST 50 U/L (15-37) H 05/22/18 05:30 ALT 38 U/L (13-61) 05/22/18 05:30 Alkaline Phosphatase 57 U/L (45-117) 05/22/18 05:30 Total Protein 5.0 g/dl (6.4-8.2) L 05/22/18 05:30 Albumin 1.9 g/dl (3.4-5.0) L 05/22/18 05:30 CARDIAC ENZYMES Troponin I < 0.02 ng/ml (0.00-0.05) 05/19/18 08:18 Current Medications Generic Name Dose Route Start Last Admin Trade Name Freq PRN Reason Stop Dose Admin Albuterol Sulfate 1 amp 05/19/18 11:35 Ventolin 0.083% Nebulizer Soln - NEB Q4H PRN SHORT OF BREATH/WHEEZING Albuterol/Ipratropium 1 amp 05/19/18 12:00 05/22/18 08:00 Duoneb - NEB 1 amp RQID BRIE Administration Amlodipine Besylate 5 mg 05/20/18 10:00 Norvasc - PO DAILY BRIE Chlorhexidine Gluconate 1 applic 05/19/18 22:00 05/21/18 21:52 Hibiclens For Decolonization - TP 1 applic HS BRIE Administration Enoxaparin Sodium 40 mg 05/21/18 10:00 05/22/18 09:11 Lovenox - SQ 40 mg DAILY BRIE Administration Piperacillin Sod/Tazobactam 50 mls @ 100 mls/hr 05/19/18 13:30 05/22/18 09:09 Sod 3.375 gm/ Dextrose IVPB 100 mls/hr Q8H-IV BRIE Administration Protocol Propofol 1,000,000 mcg in 100 mls @ 1.497 mls/hr 05/19/18 13:45 05/21/18 15: 36 Diprivan - IVPB Not Given TITR BRIE Protocol 5 MCG/KG/MIN Fentanyl 500 mcg/ Dextrose 100 mls @ 10 mls/hr 05/19/18 14:30 05/22/18 06:30 IVPB 25 mcg/hr TITR BRIE 5 mls/hr Titration Protocol 50 MCG/HR Midazolam HCl 100 mg/ Sodium 100 mls @ 1 mls/hr 05/19/18 14:45 05/21/18 16:08 Chloride IVPB Not Given TITR BRIE Protocol 1 MG/HR Norepinephrine Bitartrate 8, 500 mls @ 18.75 mls/hr 05/19/18 18:45 05/22/18 00:16 000 mcg/ Dextrose IV Not Given TITR BRIE Protocol 5 MCG/MIN Sodium Chloride 1,000 mls @ 100 mls/hr 05/20/18 09:45 05/22/18 09:10 Normal Saline - IV 100 mls/hr ASDIR BRIE Administration Vancomycin HCl 1,000 mg in 250 mls @ 166.667 mls/hr 05/22/18 02:00 05/22/18 02:14 Vancomycin (Pre-Docked) IVPB 166.667 mls/hr Q12H BRIE Administration Protocol Sodium Phosphate 40 mm/ 263.3333 mls @ 62.5 mls/hr 05/22/18 07:44 05/22/18 08 :04 Dextrose IVPB 05/22/18 11:56 62.5 mls/hr ONCE ONE Administration Methylprednisolone Sodium Succinate 60 mg 05/19/18 11:00 05/22/18 09:09 Solu-Medrol - IVPUSH 60 mg Q8H-IV BRIE Administration Mupirocin 1 applic 05/19/18 22:00 05/22/18 09:11 Bactroban Ointment (For Decolonization) - NS 05/24/18 21:59 1 applic BID BRIE Administration Oseltamivir Phosphate 75 mg 05/19/18 22:00 05/22/18 09:13 Tamiflu - GT 05/24/18 21:59 75 mg BID BRIE Administration Pantoprazole Sodium 40 mg 05/19/18 11:45 05/22/18 09:09 Protonix Iv IVPUSH 40 mg DAILY BRIE Administration Home Medications Medication Instructions Recorded Salmeterol/Fluticasone [Advair 1 inh PO BID 03/16/12 250Mcg/50Mcg] Albuterol 0.083% Nebulizer Bhavana 1 amp NEB PRN PRN 05/19/18 [Ventolin 0.083% Nebulizer Soln -] Amlodipine Besylate [Norvasc -] 5 mg PO DAILY 05/19/18 CXR: left base infiltrate with effusion. ASSESSMENT AND PLAN: The patient is a 67 year old female with a significant PMHx of COPD on 2 L home Oxygen at home with previous hx of intubation, HTN, left sided lung Ca and right sided breast cancer s/p Rtx , presented with SOB and cough x few days. patient was placed on Bipap in ED, and admitted to icu for further care. # Acute hypoxic hypercapnic respiratory failure: Due to Pneumonia on IV antibiotics, COPD exacerbation # Acute COPD exacerbation : on Duonebs, solu-medrol IV, # Acute pneumonia with left sided effusion: on IV antibiotic Rocephin/zithromax IV , ID on the case. Follow urinary antigen for strept. pneumo and legionella. #HTN: Hold Norvasc 5 mg since hypotensive . DVT PPX:Heparin sq GI Px: Protonix Dispo:ICU
--- NOTE | 2018-05-22 10:16 | PN ---
Physical Exam: SUBJECTIVE: Patient seen and examined at bedside. Recently weaned from sedation at time of encounter, good response to stimuli and commands. OBJECTIVE: Vital Signs Period Temp Pulse Resp BP Sys/Sawyer Pulse Ox Last 24 Hr 97.9 F-98.8 F 74-103 17-24 84-133/58-97 98-98 GENERAL: Intubated, recently weaned from sedation, opens eyes, squeezes fingers , moves toes to command HEAD: NC/AT EYES: PERRL ENT: Dry mucous membranes NECK: Trachea midline, no JVD or LAD LUNGS: clearer to ascultation, diffuse rhonchi noted HEART: RRR no m/r/g ABDOMEN: +bs, soft, no pain response to deep palpation EXTREMITIES: 2+ pulses, warm, well-perfused, no edema. NEUROLOGICAL: moving 4 extremities spontaneously and in response to command, no deficits appreciated PSYCH: unable to assess SKIN: Warm, dry, normal turgor Laboratory Results - last 24 hr 05/21/18 05/21/18 05/22/18 05:30 12:55 05:30 WBC 17.1 H RBC 3.72 Hgb 9.8 L Hct 31.4 L MCV 84.5 MCH 26.2 MCHC 31.0 L RDW 15.3 Plt Count 162 MPV 9.9 Absolute Neuts (auto) 16.1 H Neutrophils % 94.4 H Neutrophils % (Manual) 78.4 Band Neutrophils % 6.9 Lymphocytes % 0.4 L Lymphocytes % (Manual) 1.0 L D Monocytes % 4.9 Monocytes % (Manual) 7 Eosinophils % 0.1 D Eosinophils % (Manual) 0.0 Basophils % 0.2 Basophils % (Manual) 0.0 Myelocytes % (Man) 0 D Promyelocytes % (Man) 0 Blast Cells % (Manual) 0 Nucleated RBC % 0 Metamyelocytes 3 H D Hypochromia 1+ Platelet Estimate Decreased Platelet Comment Present Polychromasia 1+ Poikilocytosis 0 Anisocytosis 1+ Microcytosis 0 Macrocytosis 0 Target Cells 1+ Ovalocytes 2+ Rosendo Cells 1+ Acanthocytes (Spur) 1+ Puncture Site ABG pH ABG pCO2 at Pt Temp ABG pO2 at Pt Temp ABG HCO3 ABG O2 Sat (Measured) ABG O2 Content ABG Base Excess Bj Test O2 Delivery Device Oxygen Flow Rate Vent Mode Vent Rate Mechanical Rate PEEP Pressure Support Vent Sodium Potassium Chloride Carbon Dioxide Anion Gap BUN Creatinine Creat Clearance w eGFR Random Glucose Calcium Phosphorus Magnesium Total Bilirubin AST ALT Alkaline Phosphatase Total Protein Albumin Vancomycin Pre-Dose 5.6 L 05/22/18 05/22/18 05:30 06:00 WBC RBC Hgb Hct MCV MCH MCHC RDW Plt Count MPV Absolute Neuts (auto) Neutrophils % Neutrophils % (Manual) Band Neutrophils % Lymphocytes % Lymphocytes % (Manual) Monocytes % Monocytes % (Manual) Eosinophils % Eosinophils % (Manual) Basophils % Basophils % (Manual) Myelocytes % (Man) Promyelocytes % (Man) Blast Cells % (Manual) Nucleated RBC % Metamyelocytes Hypochromia Platelet Estimate Platelet Comment Polychromasia Poikilocytosis Anisocytosis Microcytosis Macrocytosis Target Cells Ovalocytes Rosendo Cells Acanthocytes (Spur) Puncture Site Left radial ABG pH 7.31 L ABG pCO2 at Pt Temp 54.6 H ABG pO2 at Pt Temp 82.8 ABG HCO3 26.8 H ABG O2 Sat (Measured) 95.7 ABG O2 Content 13.0 L ABG Base Excess 0.5 Bj Test Positive O2 Delivery Device Mech vent Oxygen Flow Rate 50% Vent Mode A/c Vent Rate 18 Mechanical Rate Yes PEEP 8.0 Pressure Support Vent 330 Sodium 135 L Potassium 4.0 Chloride 103 Carbon Dioxide 29 Anion Gap 4 L BUN 19 H Creatinine 0.7 Creat Clearance w eGFR > 60 Random Glucose 221 H Calcium 7.4 L Phosphorus 2.2 L Magnesium 2.7 H Total Bilirubin 0.4 AST 50 H ALT 38 Alkaline Phosphatase 57 Total Protein 5.0 L Albumin 1.9 L Vancomycin Pre-Dose Active Medications Generic Name Dose Route Start Last Admin Trade Name Freq PRN Reason Stop Dose Admin Albuterol Sulfate 1 amp 05/19/18 11:35 Ventolin 0.083% Nebulizer Soln - NEB Q4H PRN SHORT OF BREATH/WHEEZING Albuterol/Ipratropium 1 amp 05/19/18 12:00 05/22/18 08:00 Duoneb - NEB 1 amp RQID BRIE Administration Amlodipine Besylate 5 mg 05/20/18 10:00 Norvasc - PO DAILY BRIE Chlorhexidine Gluconate 1 applic 05/19/18 22:00 05/21/18 21:52 Hibiclens For Decolonization - TP 1 applic HS BRIE Administration Enoxaparin Sodium 40 mg 05/21/18 10:00 05/22/18 09:11 Lovenox - SQ 40 mg DAILY BRIE Administration Piperacillin Sod/Tazobactam 50 mls @ 100 mls/hr 05/19/18 13:30 05/22/18 09:09 Sod 3.375 gm/ Dextrose IVPB 100 mls/hr Q8H-IV BRIE Administration Protocol Propofol 1,000,000 mcg in 100 mls @ 1.497 mls/hr 05/19/18 13:45 05/21/18 15: 36 Diprivan - IVPB Not Given TITR BRIE Protocol 5 MCG/KG/MIN Fentanyl 500 mcg/ Dextrose 100 mls @ 10 mls/hr 05/19/18 14:30 05/22/18 06:30 IVPB 25 mcg/hr TITR BRIE 5 mls/hr Titration Protocol 50 MCG/HR Midazolam HCl 100 mg/ Sodium 100 mls @ 1 mls/hr 05/19/18 14:45 05/21/18 16:08 Chloride IVPB Not Given TITR BRIE Protocol 1 MG/HR Norepinephrine Bitartrate 8, 500 mls @ 18.75 mls/hr 05/19/18 18:45 05/22/18 00:16 000 mcg/ Dextrose IV Not Given TITR BRIE Protocol 5 MCG/MIN Sodium Chloride 1,000 mls @ 100 mls/hr 05/20/18 09:45 05/22/18 09:10 Normal Saline - IV 100 mls/hr ASDIR BRIE Administration Vancomycin HCl 1,000 mg in 250 mls @ 166.667 mls/hr 05/22/18 02:00 05/22/18 02:14 Vancomycin (Pre-Docked) IVPB 166.667 mls/hr Q12H BRIE Administration Protocol Sodium Phosphate 40 mm/ 263.3333 mls @ 62.5 mls/hr 05/22/18 07:44 05/22/18 08 :04 Dextrose IVPB 05/22/18 11:56 62.5 mls/hr ONCE ONE Administration Methylprednisolone Sodium Succinate 60 mg 05/19/18 11:00 05/22/18 09:09 Solu-Medrol - IVPUSH 60 mg Q8H-IV BRIE Administration Mupirocin 1 applic 05/19/18 22:00 05/22/18 09:11 Bactroban Ointment (For Decolonization) - NS 05/24/18 21:59 1 applic BID BRIE Administration Oseltamivir Phosphate 75 mg 05/19/18 22:00 05/22/18 09:13 Tamiflu - GT 05/24/18 21:59 75 mg BID BRIE Administration Pantoprazole Sodium 40 mg 05/19/18 11:45 05/22/18 09:09 Protonix Iv IVPUSH 40 mg DAILY BRIE Administration ASSESSMENT/PLAN: 67 y/o F w/ PMHx COPD on 2L O2, breast and lung Ca, perforated ulcer, prior intubation, p/w lethargy, SOB, increased WOB, found to have b/l infiltrates on CXR. Decompensated and underwent intubation and RIJ central line placement. In ICU in septic shock w/ acute on chronic respiratory failure 2/2 PNA. #CV -RIJ line placed (day 4), on levophed downtitrated to 2, will attempt to wean off pressors -poor quality echo, RV systolic pressure elevated #pulmonary -intubated, no extubation planned today -sedation holiday -SBTs -bronchodilators -solumedrol 60 q8h -CXR this AM improved on left -greater CO2 retention on ABG -f/u ABG, CXR #ID -ID following -urine pneumococcal antigens positive -sputum culture positive for alpha hemolytic strep -cont vancomycin/zosyn/tamiflu, further ABx as per ID #FEN -no IVF -monitor and correct electrolytes -vital tube feeds per criminal investigator recommendations #PPx -DVT: Lovenox subq -GI: IV PTX #code -full #dispo -continue to monitor in ICU Visit type - Emergency Visit Emergency Visit: No - New Patient This patient is new to me today: No - Critical Care Critical Care patient: Yes Total Critical Care Time (in minutes): 40 Critical Care Statement: The care of this patient involved high complexity decision making to prevent further life threatening deterioration of the patient 's condition and/or to evaluate & treat vital organ system(s) failure or risk of failure.
--- NOTE | 2018-05-22 10:39 | PN ---
Progress Note (short form) - Note Progress Note: in ICu failed weaning trial Vital Signs Temperature 98.1 F 05/22/18 06:00 Pulse Rate 76 05/22/18 08:00 Respiratory Rate 24 H 05/22/18 09:50 Blood Pressure 102/67 05/22/18 08:00 O2 Sat by Pulse Oximetry (%) 98 05/21/18 21:00 GENERAL:on the vent. sedated and intubated. HEAD: AT/NC with no signs of trauma. EYES: Pupils equal, round and reactive to light, sclera anicteric, conjunctiva clear. EARS, NOSE, THROAT: on the vent. NECK: Normal range of motion, supple , no JVD. RIJ line (day 5) LUNGS: intubated ,sedated , decreased breath sounds bl, positive for rhonchi bilaterally. HEART: Regular rate and rhythm, normal S1 and S2 without murmur, rub or gallop. ABDOMEN: Soft, nontender, not distended, normoactive bowel sounds, no guarding. EXTREMITIES: 2+ pulses, no peripheral edema. NEUROLOGICAL: unable to access , due to sedation PSYCHIATRIC: unable to access due to sedation. SKIN: Warm, dry, normal turgor, no rashes appreciated. CBCD WBC 17.1 K/mm3 (4.0-10.0) H 05/22/18 05:30 RBC 3.72 M/mm3 (3.60-5.2) 05/22/18 05:30 Hgb 9.8 GM/dL (10.7-15.3) L 05/22/18 05:30 Hct 31.4 % (32.4-45.2) L 05/22/18 05:30 MCV 84.5 fl (80-96) 05/22/18 05:30 MCHC 31.0 g/dl (32.0-36.0) L 05/22/18 05:30 RDW 15.3 % (11.6-15.6) 05/22/18 05:30 Plt Count 162 K/MM3 (134-434) 05/22/18 05:30 MPV 9.9 fl (7.5-11.1) 05/22/18 05:30 CMP Sodium 135 mmol/L (136-145) L 05/22/18 05:30 Potassium 4.0 mmol/L (3.5-5.1) 05/22/18 05:30 Chloride 103 mmol/L (98-107) 05/22/18 05:30 Carbon Dioxide 29 mmol/L (21-32) 05/22/18 05:30 Anion Gap 4 MMOL/L (8-16) L 05/22/18 05:30 BUN 19 mg/dL (7-18) H 05/22/18 05:30 Creatinine 0.7 mg/dL (0.55-1.3) 05/22/18 05:30 Creat Clearance w eGFR > 60 (>60) 05/22/18 05:30 Random Glucose 221 mg/dL (74-106) H 05/22/18 05:30 Calcium 7.4 mg/dL (8.5-10.1) L 05/22/18 05:30 Total Bilirubin 0.4 mg/dL (0.2-1) 05/22/18 05:30 AST 50 U/L (15-37) H 05/22/18 05:30 ALT 38 U/L (13-61) 05/22/18 05:30 Alkaline Phosphatase 57 U/L (45-117) 05/22/18 05:30 Total Protein 5.0 g/dl (6.4-8.2) L 05/22/18 05:30 Albumin 1.9 g/dl (3.4-5.0) L 05/22/18 05:30 CARDIAC ENZYMES Troponin I < 0.02 ng/ml (0.00-0.05) 05/19/18 08:18 Current Medications Generic Name Dose Route Start Last Admin Trade Name Charlieq PRN Reason Stop Dose Admin Albuterol Sulfate 1 amp 05/19/18 11:35 Ventolin 0.083% Nebulizer Soln - NEB Q4H PRN SHORT OF BREATH/WHEEZING Albuterol/Ipratropium 1 amp 05/19/18 12:00 05/22/18 08:00 Duoneb - NEB 1 amp RQID BRIE Administration Amlodipine Besylate 5 mg 05/20/18 10:00 Norvasc - PO DAILY BRIE Chlorhexidine Gluconate 1 applic 05/19/18 22:00 05/21/18 21:52 Hibiclens For Decolonization - TP 1 applic HS BRIE Administration Enoxaparin Sodium 40 mg 05/21/18 10:00 05/22/18 09:11 Lovenox - SQ 40 mg DAILY BRIE Administration Piperacillin Sod/Tazobactam 50 mls @ 100 mls/hr 05/19/18 13:30 05/22/18 09:09 Sod 3.375 gm/ Dextrose IVPB 100 mls/hr Q8H-IV BRIE Administration Protocol Propofol 1,000,000 mcg in 100 mls @ 1.497 mls/hr 05/19/18 13:45 05/21/18 15: 36 Diprivan - IVPB Not Given TITR BRIE Protocol 5 MCG/KG/MIN Fentanyl 500 mcg/ Dextrose 100 mls @ 10 mls/hr 05/19/18 14:30 05/22/18 06:30 IVPB 25 mcg/hr TITR BRIE 5 mls/hr Titration Protocol 50 MCG/HR Midazolam HCl 100 mg/ Sodium 100 mls @ 1 mls/hr 05/19/18 14:45 05/21/18 16:08 Chloride IVPB Not Given TITR BRIE Protocol 1 MG/HR Norepinephrine Bitartrate 8, 500 mls @ 18.75 mls/hr 05/19/18 18:45 05/22/18 00:16 000 mcg/ Dextrose IV Not Given TITR BRIE Protocol 5 MCG/MIN Sodium Chloride 1,000 mls @ 100 mls/hr 05/20/18 09:45 05/22/18 09:10 Normal Saline - IV 100 mls/hr ASDIR BRIE Administration Vancomycin HCl 1,000 mg in 250 mls @ 166.667 mls/hr 05/22/18 02:00 05/22/18 02:14 Vancomycin (Pre-Docked) IVPB 166.667 mls/hr Q12H BRIE Administration Protocol Sodium Phosphate 40 mm/ 263.3333 mls @ 62.5 mls/hr 05/22/18 07:44 05/22/18 08 :04 Dextrose IVPB 05/22/18 11:56 62.5 mls/hr ONCE ONE Administration Methylprednisolone Sodium Succinate 60 mg 05/19/18 11:00 05/22/18 09:09 Solu-Medrol - IVPUSH 60 mg Q8H-IV BRIE Administration Mupirocin 1 applic 05/19/18 22:00 05/22/18 09:11 Bactroban Ointment (For Decolonization) - NS 05/24/18 21:59 1 applic BID BRIE Administration Oseltamivir Phosphate 75 mg 05/19/18 22:00 05/22/18 09:13 Tamiflu - GT 05/24/18 21:59 75 mg BID BRIE Administration Pantoprazole Sodium 40 mg 05/19/18 11:45 05/22/18 09:09 Protonix Iv IVPUSH 40 mg DAILY BRIE Administration Home Medications Medication Instructions Recorded Salmeterol/Fluticasone [Advair 1 inh PO BID 03/16/12 250Mcg/50Mcg] Albuterol 0.083% Nebulizer Bhavana 1 amp NEB PRN PRN 05/19/18 [Ventolin 0.083% Nebulizer Soln -] Amlodipine Besylate [Norvasc -] 5 mg PO DAILY 05/19/18 Microbiology 05/19/18 15:09 Sputum - Endotrachea Suction/Ventilator Gram Stain - Final 05/19/18 15:09 Sputum - Endotrachea Suction/Ventilator Sputum Culture - Preliminary Streptococcus Pneumoniae Staphylococcus Latex Coag Pos 05/19/18 08:18 Blood - Peripheral Venous Blood Culture - Preliminary NO GROWTH OBTAINED AFTER 72 HOURS, INCUBATION TO CONTINUE FOR 2 DAYS. 05/19/18 08:18 Blood - Peripheral Venous Blood Culture - Preliminary NO GROWTH OBTAINED AFTER 72 HOURS, INCUBATION TO CONTINUE FOR 2 DAYS. 05/19/18 09:00 Nasopharyngeal Aspirate Respiratory Virus (PCR) - Preliminary 05/19/18 15:09 Urine - Urine - Catheterized Legionella Antigen - Final 05/19/18 15:09 Urine - Urine - Catheterized Streptococcus pneumoniae Antigen (M - Final 05/19/18 08:30 Urine - Urine Clean Catch Urine Culture - Final NO GROWTH OBTAINED CXR: left base infiltrate with effusion. ASSESSMENT AND PLAN: The patient is a 67 year old female with a significant PMHx of COPD on 2 L home Oxygen at home with previous hx of intubation, HTN, left sided lung Ca and right sided breast cancer s/p Rtx , presented with SOB and cough x few days. patient was placed on Bipap in ED, and admitted to icu for further care. # Acute hypoxic hypercapnic respiratory failure s/p intubation on the vent: Due to Pneumonia / COPD exacerbation on IV antibiotics continue. failed weaning trial, further management as per ICU team, on pressors now, On fentanyl/ midazolam drip/propofol continue. On levophed titrate as needed, off phenelephrine now # Acute COPD exacerbation s/ p intubation : on Duonebs, solu-medrol IV, continue current managment. daily weaning trials as per ICU team # Acute pneumonia growing strept.pneumonia ,with left sided effusion: continue current IV antibiotics Zosyn/ vancomycin.ID on the case. urinary antigen for strept. pneumo and negative for legionella. #HTN: Hold Norvasc 5 mg since hypotensive . DVT PPX:Heparin sq GI Px: Protonix px tamiflu as per id daily weaning trial. Visit type - Emergency Visit Emergency Visit: Yes ED Registration Date: 05/19/18 Care time: The patient presented to the Emergency Department on the above date and was hospitalized for further evaluation of their emergent condition. - New Patient This patient is new to me today: No - Critical Care Critical Care patient: No - Discharge Referral Referred to [facility] No
[2018-05-22] MEDS ORDERED: PROPOFOL 1,000,000 MCG/100 ML VIAL ONE (11:35)
[2018-05-22] MEDS: PROPOFOL 1,000,000 MCG/100 ML VIAL IVPB SCH ×2 (11:45→21:00)
--- NOTE | 2018-05-22 12:01 | PN ---
Progress Note, Physician History of Present Illness: Breathing slightly labored on ventilator + large amt of secretions being suctioned Afebrile - Current Medication List Current Medications: Active Medications Albuterol Sulfate (Ventolin 0.083% Nebulizer Soln -) 1 amp NEB Q4H PRN PRN Reason: SHORT OF BREATH/WHEEZING Albuterol/Ipratropium (Duoneb -) 1 amp NEB RQID BRIE Last Admin: 05/22/18 08:00 Dose: 1 amp Amlodipine Besylate (Norvasc -) 5 mg PO DAILY [facility] Chlorhexidine Gluconate (Hibiclens For Decolonization -) 1 applic TP HS [facility] Last Admin: 05/21/18 21:52 Dose: 1 applic Enoxaparin Sodium (Lovenox -) 40 mg SQ DAILY [facility] Last Admin: 05/22/18 09:11 Dose: 40 mg Piperacillin Sod/Tazobactam (Sod 3.375 gm/ Dextrose) 50 mls @ 100 mls/hr IVPB Q8H-IV BRIE; Protocol Last Admin: 05/22/18 09:09 Dose: 100 mls/hr Fentanyl 500 mcg/ Dextrose 100 mls @ 10 mls/hr IVPB TITR [facility]; Protocol Last Titration: 05/22/18 06:30 Dose: 25 mcg/hr, 5 mls/hr Norepinephrine Bitartrate 8, (000 mcg/ Dextrose) 500 mls @ 18.75 mls/hr IV TITR [facility]; Protocol Last Admin: 05/22/18 00:16 Dose: Not Given Sodium Chloride (Normal Saline -) 1,000 mls @ 100 mls/hr IV ASDIR [facility] Last Admin: 05/22/18 09:10 Dose: 100 mls/hr Vancomycin HCl (Vancomycin (Pre-Docked)) 1,000 mg in 250 mls @ 166.667 mls/hr IVPB Q12H BRIE; Protocol Last Admin: 05/22/18 02:14 Dose: 166.667 mls/hr Propofol (Diprivan -) 1,000,000 mcg in 100 mls @ 3.258 mls/hr IVPB TITR [facility]; Protocol Methylprednisolone Sodium Succinate (Solu-Medrol -) 60 mg IVPUSH Q8H-IV BRIE Last Admin: 05/22/18 09:09 Dose: 60 mg Mupirocin (Bactroban Ointment (For Decolonization) -) 1 applic NS BID [facility] Stop: 05/24/18 21:59 Last Admin: 05/22/18 09:11 Dose: 1 applic Oseltamivir Phosphate (Tamiflu -) 75 mg GT BID [facility] Stop: 05/24/18 21:59 Last Admin: 05/22/18 09:13 Dose: 75 mg Pantoprazole Sodium (Protonix Iv) 40 mg IVPUSH DAILY [facility] Last Admin: 05/22/18 09:09 Dose: 40 mg - Objective Vital Signs: Vital Signs Temperature 98.1 F 05/22/18 06:00 Pulse Rate 76 05/22/18 08:00 Respiratory Rate 24 H 05/22/18 09:50 Blood Pressure 102/67 05/22/18 08:00 O2 Sat by Pulse Oximetry (%) 98 05/21/18 21:00 Constitutional: Yes: No Distress Cardiovascular: Yes: Regular Rate and Rhythm, S1, S2 Respiratory: Yes: Mechanically Ventilated Gastrointestinal: Yes: Normal Bowel Sounds, Soft. No: Tenderness Labs: CBC, BMP 05/22/18 05:30 05/22/18 05:30 INR, PTT INR 1.25 (0.83-1.09) H 05/19/18 08:18 Assessment/Plan Respiratory failure Pneumococcal pneumonia Await final identification of sputum isolate ? switch to ceftriaxone
[2018-05-22 12:10] LABS: ACANTHOCYTES 2+; ANISOCYTOSIS 0; MACROCYTOSIS 0; OVALOCYTE 2+; PLATELET ESTIMATE NORMAL; TEAR DROP CELLS 1+
[2018-05-22] MEDS: CHLORHEXIDINE GLUCONATE 4% CLEANSER FOR DECOLONIZATION TP SCH (21:42)
[2018-05-22] MEDS: FENTANYL INJECTION 500 MCG in DEXTROSE 5%-WATER - 90 ML IVPB SCH (21:44)
[2018-05-23] MEDS ORDERED: PT OWN MED DRAWER 7, Y5N ONE ×4 (02:26→21:19)
[2018-05-23] MEDS ORDERED: PIPERACILLIN/TAZOBACTAM 3.375 GM VIAL IVPB ONE ×3 (02:27→09:55)
[2018-05-23] MEDS ORDERED: DEXTROSE 5%-WATER - 50 ML IVPB ONE ×3 (02:27→09:55)
[2018-05-23] MEDS: PIPERACILLIN/TAZOB 3.375 GM 3.375 GM in DEXTROSE 5%-WATER - 50 ML IVPB SCH ×2 (02:28→09:58)
[2018-05-23] MEDS: methylPREDNISolone NA SUCC 40 MG/1 ML VIAL IVPUSH SCH ×4 (02:29→21:48)
[2018-05-23] MEDS: VANCOMYCIN 1 GRAM (PRE-DOCKED) 1,000 MG/250 ML BAG IVPB SCH (02:32)
[2018-05-23] MEDS: PROPOFOL 1,000,000 MCG/100 ML VIAL IVPB SCH ×3 (03:00→23:09)
[2018-05-23 06:36] LABS: ALBUMIN 2.2 g/dl (3.4-5.0); ALK PHOS 72 U/L (45-117); ANION GAP 6 MMOL/L (8-16); BILIRUBIN,TOTAL 0.4 mg/dL (0.2-1); BLOOD UREA NITROGEN 24 mg/dL (7-18); CALCIUM 7.9 mg/dL (8.5-10.1); CHLORIDE 104 mmol/L (98-107); CO2 29 mmol/L (21-32); CREATININE 0.9 mg/dL (0.55-1.3); GLUCOSE,RANDOM 193 mg/dL (74-106); PHOSPHOROUS 3.4 mg/dL (2.5-4.9); SGOT/AST 32 U/L (15-37); SGPT/ALT 45 U/L (13-61); SODIUM 139 mmol/L (136-145); TOT PROT 5.6 g/dl (6.4-8.2)
[2018-05-23 07:47] LABS: ARTERIAL BLOOD GAS PCO2 59.1 mmHg (35-45); ARTERIAL BLOOD GAS PO2 78.1 mmHg (80-100)
[2018-05-23 07:48] LABS: ARTERIAL BLD GAS O2 SATURATION 94.9 % (90-98.9); ARTERIAL BLOOD GAS BASE EXCESS 1.8 meq/l (-2-2)
[2018-05-23 07:49] LABS: ALLENS TEST POSITIVE
[2018-05-23] MEDS: ALBUTEROL SO4 2.5/IPRATROPIUM 0.5 INH SOL 3 ML VIAL.NEB. NEB SCH ×4 (08:20→20:33)
--- NOTE | 2018-05-23 09:50 | PN ---
Teaching Attending Note Name of Resident: Favio Carreon ATTENDING PHYSICIAN STATEMENT I saw and evaluated the patient. I reviewed the resident's note and discussed the case with the resident. I agree with the resident's findings and plan as documented. SUBJECTIVE: Patient seen and examined in the ICU. Remains intubated and sedated. AC Mode of vent, 60% FiO2. Flow loops still obstructed, but improving. On 2 mcq NE for hemodynamic support. CXR: ETT in position / improving infiltrates on the right / slightly increasing infiltrates on the left Intake & Output 05/20/18 05/21/18 05/22/18 05/23/18 23:59 23:59 23:59 23:59 Intake Total 5187 4825 4337.0 2053 Output Total 2600 1650 1750 1200 Balance 2587 3175 2587.0 853 Weight 109 lb 9.6 oz 113 lb 6.4 oz 119 lb 11.376 oz 120 lb 7 oz Last Vital Signs Temp Pulse Resp BP Pulse Ox 99.8 F H 66 15 93/57 L 100 05/23/18 06:00 05/23/18 08:00 05/23/18 08:00 05/23/18 08:00 05/22/18 21:00 Active Medications Albuterol Sulfate (Ventolin 0.083% Nebulizer Soln -) 1 amp NEB Q4H PRN PRN Reason: SHORT OF BREATH/WHEEZING Albuterol/Ipratropium (Duoneb -) 1 amp NEB RQID [facility] Last Admin: 05/22/18 21:00 Dose: 1 amp Amlodipine Besylate (Norvasc -) 5 mg PO DAILY [facility] Chlorhexidine Gluconate (Hibiclens For Decolonization -) 1 applic TP HS [facility] Last Admin: 05/22/18 21:42 Dose: 1 applic Enoxaparin Sodium (Lovenox -) 40 mg SQ DAILY [facility] Last Admin: 05/22/18 09:11 Dose: 40 mg Piperacillin Sod/Tazobactam (Sod 3.375 gm/ Dextrose) 50 mls @ 100 mls/hr IVPB Q8H-IV [facility]; Protocol Last Admin: 05/23/18 02:28 Dose: 100 mls/hr Fentanyl 500 mcg/ Dextrose 100 mls @ 10 mls/hr IVPB TITR [facility]; Protocol Last Admin: 05/22/18 21:44 Dose: Not Given Norepinephrine Bitartrate 8, (000 mcg/ Dextrose) 500 mls @ 18.75 mls/hr IV TITR [facility]; Protocol Last Admin: 05/22/18 21:44 Dose: Not Given Vancomycin HCl (Vancomycin (Pre-Docked)) 1,000 mg in 250 mls @ 166.667 mls/hr IVPB Q12H [facility]; Protocol Last Admin: 05/23/18 02:32 Dose: 166.667 mls/hr Propofol (Diprivan -) 1,000,000 mcg in 100 mls @ 3.258 mls/hr IVPB TITR [facility]; Protocol Last Admin: 05/23/18 03:00 Dose: 35 mcg/kg/min, 11.403 mls/hr Sodium Chloride (Normal Saline -) 1,000 mls @ 50 mls/hr IV ASDIR [facility] Last Admin: 05/22/18 21:42 Dose: 50 mls/hr Methylprednisolone Sodium Succinate (Solu-Medrol -) 40 mg IVPUSH BID [facility] Mupirocin (Bactroban Ointment (For Decolonization) -) 1 applic NS BID [facility] Stop: 05/24/18 21:59 Last Admin: 05/22/18 21:41 Dose: 1 applic Oseltamivir Phosphate (Tamiflu -) 75 mg GT BID [facility] Stop: 05/24/18 21:59 Last Admin: 05/22/18 21:50 Dose: 75 mg Pantoprazole Sodium (Protonix Iv) 40 mg IVPUSH DAILY [facility] Last Admin: 05/22/18 09:09 Dose: 40 mg GENERAL: Intubated and sedated HEAD: Normal with no signs of trauma. EYES: sclera anicteric, conjunctiva clear. No lid lag. EARS, NOSE, THROAT: Ears normal, nares patent, oropharynx clear without exudates. Moist mucous membranes. NECK: Normal range of motion, supple without lymphadenopathy, JVD, or masses. LUNGS: Intubated, slightly improved expiratory wheeze HEART: Regular rate and rhythm, normal S1 and S2 without murmur, rub or gallop. ABDOMEN: Soft, nontender, not distended, normoactive bowel sounds, no guarding, no rebound, no masses. No hepatomegaly or splenomegaly. MUSCULOSKELETAL: Normal range of motion at all joints. No bony deformities or tenderness. No CVA tenderness. UPPER EXTREMITIES: 2+ pulses, warm, well-perfused. No cyanosis. No clubbing. No peripheral edema. LOWER EXTREMITIES: 2+ pulses, warm, well-perfused. No calf tenderness. No peripheral edema. NEUROLOGICAL: Sedated SKIN: Warm, dry, normal turgor, no rashes or lesions noted, normal capillary refill. Laboratory Results - last 24 hr 05/22/18 05/23/18 05/23/18 05:30 05:00 06:05 Neutrophils % (Manual) 89.2 H Band Neutrophils % 8.8 Lymphocytes % (Manual) 1.0 L Monocytes % (Manual) 1 L D Eosinophils % (Manual) 0.0 Basophils % (Manual) 0.0 Myelocytes % (Man) 0 Promyelocytes % (Man) 0 Blast Cells % (Manual) 0 Metamyelocytes 0 D Hypochromia 0 Platelet Estimate Normal Polychromasia 1+ Poikilocytosis 1+ Anisocytosis 0 Microcytosis 0 Macrocytosis 0 Spherocytes 1+ Tear Drop Cells 1+ Ovalocytes 2+ Lena Cells 1+ Acanthocytes (Spur) 2+ Anticoagulation Therapy No Result Required. Puncture Site Left radial ABG pH 7.30 L ABG pCO2 at Pt Temp 59.1 H ABG pO2 at Pt Temp 78.1 L ABG HCO3 28.5 H ABG O2 Sat (Measured) 94.9 ABG O2 Content 13.3 L ABG Base Excess 1.8 Bj Test Positive O2 Delivery Device Vent Oxygen Flow Rate 60% Vent Mode No Result Required. Vent Rate No Result Required. Mechanical Rate No Result Required. Pressure Support Vent No Result Required. Sodium 139 Potassium 4.0 Chloride 104 Carbon Dioxide 29 Anion Gap 6 L BUN 24 H Creatinine 0.9 Creat Clearance w eGFR > 60 Random Glucose 193 H Calcium 7.9 L Phosphorus 3.4 Magnesium 3.0 H Total Bilirubin 0.4 AST 32 ALT 45 Alkaline Phosphatase 72 Total Protein 5.6 L Albumin 2.2 L ASSESSMENT/PLAN: Acute Respiratory Failure Bilateral PNA COPD Previous intubation History of Breast and Lung CA, S/P right lung resection History of gastric ulcer with perforation. SBTs as tolerated Daily sedation vacation BD TX standing and PRN Wean Medrol ABX coverage VTE prophylaxis Aspiration precautions Full enteral feeds Tamiflu PPI Pressors for MAP < [address] Harris Critical care time spent in reviewing chart, evaluating patient and formulating plan - 36 minutes
[2018-05-23] MEDS: ENOXAPARIN NA (PORCINE) 40 MG/0.4 ML DISP.SYRIN SQ SCH (09:57)
[2018-05-23] MEDS: PANTOPRAZOLE SODIUM 40 MG VIAL IVPUSH SCH (10:02)
[2018-05-23] MEDS: MUPIROCIN 2% TOPICAL OINTMENT FOR DECOLONIZATION NS SCH ×2 (10:03→21:47)
[2018-05-23] MEDS: OSELTAMIVIR PHOSPHATE 75 MG CAPSULE GT SCH ×2 (10:03→21:48)
--- NOTE | 2018-05-23 10:38 | PN ---
Physical Exam: SUBJECTIVE: Patient seen and examined at bedside. No overnight events. remains intubated and sedated. sedation vacation in AM. OBJECTIVE: Vital Signs Period Temp Pulse Resp BP Sys/Sawyer Pulse Ox Last 24 Hr 98.4 F-99.8 F 66-118 10-25 81-152/56-94 98-100 GENERAL: Intubated, recently weaned from sedation, opens eyes, squeezes fingers , moves toes to command HEAD: NC/AT EYES: PERRL ENT: Dry mucous membranes NECK: Trachea midline, no JVD or LAD LUNGS: clearer to ascultation, diffuse rhonchi noted HEART: RRR no m/r/g ABDOMEN: +bs, soft, no pain response to deep palpation EXTREMITIES: 2+ pulses, warm, well-perfused, no edema. NEUROLOGICAL: moving 4 extremities spontaneously and in response to command, no deficits appreciated PSYCH: unable to assess SKIN: Warm, dry, normal turgor Laboratory Results - last 24 hr 05/22/18 05/23/18 05/23/18 05:30 05:00 06:05 Neutrophils % (Manual) 89.2 H Band Neutrophils % 8.8 Lymphocytes % (Manual) 1.0 L Monocytes % (Manual) 1 L D Eosinophils % (Manual) 0.0 Basophils % (Manual) 0.0 Myelocytes % (Man) 0 Promyelocytes % (Man) 0 Blast Cells % (Manual) 0 Metamyelocytes 0 D Hypochromia 0 Platelet Estimate Normal Polychromasia 1+ Poikilocytosis 1+ Anisocytosis 0 Microcytosis 0 Macrocytosis 0 Spherocytes 1+ Tear Drop Cells 1+ Ovalocytes 2+ Apex Cells 1+ Acanthocytes (Spur) 2+ Anticoagulation Therapy No Result Required. Puncture Site Left radial ABG pH 7.30 L ABG pCO2 at Pt Temp 59.1 H ABG pO2 at Pt Temp 78.1 L ABG HCO3 28.5 H ABG O2 Sat (Measured) 94.9 ABG O2 Content 13.3 L ABG Base Excess 1.8 Bj Test Positive O2 Delivery Device Vent Oxygen Flow Rate 60% Vent Mode No Result Required. Vent Rate No Result Required. Mechanical Rate No Result Required. Pressure Support Vent No Result Required. Sodium 139 Potassium 4.0 Chloride 104 Carbon Dioxide 29 Anion Gap 6 L BUN 24 H Creatinine 0.9 Creat Clearance w eGFR > 60 Random Glucose 193 H Calcium 7.9 L Phosphorus 3.4 Magnesium 3.0 H Total Bilirubin 0.4 AST 32 ALT 45 Alkaline Phosphatase 72 Total Protein 5.6 L Albumin 2.2 L Active Medications Generic Name Dose Route Start Last Admin Trade Name Freq PRN Reason Stop Dose Admin Albuterol Sulfate 1 amp 05/19/18 11:35 Ventolin 0.083% Nebulizer Soln - NEB Q4H PRN SHORT OF BREATH/WHEEZING Albuterol/Ipratropium 1 amp 05/19/18 12:00 05/23/18 08:20 Duoneb - NEB 1 amp RQID [facility] Administration Amlodipine Besylate 5 mg 05/20/18 10:00 Norvasc - PO DAILY [facility] Chlorhexidine Gluconate 1 applic 05/19/18 22:00 05/22/18 21:42 Hibiclens For Decolonization - TP 1 applic HS [facility] Administration Enoxaparin Sodium 40 mg 05/21/18 10:00 05/23/18 09:57 Lovenox - SQ 40 mg DAILY [facility] Administration Piperacillin Sod/Tazobactam 50 mls @ 100 mls/hr 05/19/18 13:30 05/23/18 09:58 Sod 3.375 gm/ Dextrose IVPB 100 mls/hr Q8H-IV [facility] Administration Protocol Fentanyl 500 mcg/ Dextrose 100 mls @ 10 mls/hr 05/19/18 14:30 05/22/18 21:44 IVPB Not Given TITR [facility] Protocol 50 MCG/HR Norepinephrine Bitartrate 8, 500 mls @ 18.75 mls/hr 05/19/18 18:45 05/22/18 21:44 000 mcg/ Dextrose IV Not Given TITR [facility] Protocol 5 MCG/MIN Vancomycin HCl 1,000 mg in 250 mls @ 166.667 mls/hr 05/22/18 02:00 05/23/18 02:32 Vancomycin (Pre-Docked) IVPB 166.667 mls/hr Q12H [facility] Administration Protocol Propofol 1,000,000 mcg in 100 mls @ 3.258 mls/hr 05/22/18 11:45 05/23/18 03: 00 Diprivan - IVPB 35 mcg/kg/min TITR [facility] 11.403 mls/hr Administration Protocol 10 MCG/KG/MIN Sodium Chloride 1,000 mls @ 50 mls/hr 05/22/18 20:21 05/22/18 21:42 Normal Saline - IV 50 mls/hr ASDIR [facility] Administration Methylprednisolone Sodium Succinate 40 mg 05/23/18 10:00 05/23/18 10:21 Solu-Medrol - IVPUSH 40 mg BID [facility] Administration Mupirocin 1 applic 05/19/18 22:00 05/23/18 10:03 Bactroban Ointment (For Decolonization) - NS 05/24/18 21:59 1 applic BID [facility] Administration Oseltamivir Phosphate 75 mg 05/19/18 22:00 05/23/18 10:03 Tamiflu - GT 05/24/18 21:59 75 mg BID [facility] Administration Pantoprazole Sodium 40 mg 05/19/18 11:45 05/23/18 10:02 Protonix Iv IVPUSH 40 mg DAILY [facility] Administration ASSESSMENT/PLAN: 67 y/o F w/ PMHx COPD on 2L O2, breast and lung Ca, perforated ulcer, prior intubation, p/w lethargy, SOB, increased WOB, found to have b/l infiltrates on CXR. Decompensated and underwent intubation and RIJ central line placement. In ICU in septic shock w/ acute on chronic respiratory failure 2/2 PNA. #CV -RIJ line placed (day 5), on levophed downtitrated to 2, will attempt to wean off pressors -poor quality echo, RV systolic pressure elevated #pulmonary -intubated, no extubation planned today -sedation holiday -SBTs -bronchodilators -will reduce solumedrol to 40 BID -CXR this AM improved on left -greater CO2 retention on ABG- increased TV to 400ml -f/u ABG, CXR #ID -ID following -urine pneumococcal antigens positive -sputum culture positive for alpha hemolytic strep -cont vancomycin/zosyn/tamiflu, further ABx as per ID #FEN -no IVF -monitor and correct electrolytes -vital tube feeds per engagement manager recommendations #PPx -DVT: Lovenox subq -GI: IV PTX #code -full #dispo -continue to monitor in ICU Visit type - Emergency Visit Emergency Visit: Yes ED Registration Date: 05/19/18 Care time: The patient presented to the Emergency Department on the above date and was hospitalized for further evaluation of their emergent condition. - New Patient This patient is new to me today: Yes Date on this admission: 05/23/18 - Critical Care Critical Care patient: Yes Total Critical Care Time (in minutes): 32 Critical Care Statement: The care of this patient involved high complexity decision making to prevent further life threatening deterioration of the patient 's condition and/or to evaluate & treat vital organ system(s) failure or risk of failure.
--- NOTE | 2018-05-23 11:27 | PN ---
Progress Note, Physician History of Present Illness: Sedated on ventilator Hypotensive on pressors Breathing non-labored + large amt of secretions being suctioned Low grade temp Sputum c/s Pneumococcus, MSSA - Current Medication List Current Medications: Active Medications Albuterol Sulfate (Ventolin 0.083% Nebulizer Soln -) 1 amp NEB Q4H PRN PRN Reason: SHORT OF BREATH/WHEEZING Albuterol/Ipratropium (Duoneb -) 1 amp NEB RQID [facility] Last Admin: 05/23/18 08:20 Dose: 1 amp Amlodipine Besylate (Norvasc -) 5 mg PO DAILY [facility] Chlorhexidine Gluconate (Hibiclens For Decolonization -) 1 applic TP HS [facility] Last Admin: 05/22/18 21:42 Dose: 1 applic Enoxaparin Sodium (Lovenox -) 40 mg SQ DAILY [facility] Last Admin: 05/23/18 09:57 Dose: 40 mg Piperacillin Sod/Tazobactam (Sod 3.375 gm/ Dextrose) 50 mls @ 100 mls/hr IVPB Q8H-IV [facility]; Protocol Last Admin: 05/23/18 09:58 Dose: 100 mls/hr Fentanyl 500 mcg/ Dextrose 100 mls @ 10 mls/hr IVPB TITR [facility]; Protocol Last Admin: 05/22/18 21:44 Dose: Not Given Norepinephrine Bitartrate 8, (000 mcg/ Dextrose) 500 mls @ 18.75 mls/hr IV TITR [facility]; Protocol Last Admin: 05/22/18 21:44 Dose: Not Given Vancomycin HCl (Vancomycin (Pre-Docked)) 1,000 mg in 250 mls @ 166.667 mls/hr IVPB Q12H [facility]; Protocol Last Admin: 05/23/18 02:32 Dose: 166.667 mls/hr Propofol (Diprivan -) 1,000,000 mcg in 100 mls @ 3.258 mls/hr IVPB TITR [facility]; Protocol Last Admin: 05/23/18 03:00 Dose: 35 mcg/kg/min, 11.403 mls/hr Sodium Chloride (Normal Saline -) 1,000 mls @ 50 mls/hr IV ASDIR [facility] Last Admin: 05/22/18 21:42 Dose: 50 mls/hr Methylprednisolone Sodium Succinate (Solu-Medrol -) 40 mg IVPUSH BID [facility] Last Admin: 05/23/18 10:21 Dose: 40 mg Mupirocin (Bactroban Ointment (For Decolonization) -) 1 applic NS BID [facility] Stop: 05/24/18 21:59 Last Admin: 05/23/18 10:03 Dose: 1 applic Oseltamivir Phosphate (Tamiflu -) 75 mg GT BID [facility] Stop: 05/24/18 21:59 Last Admin: 05/23/18 10:03 Dose: 75 mg Pantoprazole Sodium (Protonix Iv) 40 mg IVPUSH DAILY [facility] Last Admin: 05/23/18 10:02 Dose: 40 mg - Objective Vital Signs: Vital Signs Temperature 98.9 F 05/23/18 10:00 Pulse Rate 99 H 05/23/18 10:00 Respiratory Rate 17 05/23/18 10:00 Blood Pressure 139/88 05/23/18 10:00 O2 Sat by Pulse Oximetry (%) 100 05/22/18 21:00 Constitutional: Yes: No Distress Eyes: Yes: Conjunctiva Clear Cardiovascular: Yes: Regular Rate and Rhythm, S1 (w), S2 Respiratory: Yes: Mechanically Ventilated Gastrointestinal: Yes: Normal Bowel Sounds, Soft, Other (slightly distended, tympanitic) Genitourinary: Yes: Other (urine in cervantes hemorrhagic) Edema: No Labs: CBC, BMP 05/22/18 05:30 05/23/18 05:00 INR, PTT INR 1.25 (0.83-1.09) H 05/19/18 08:18 Assessment/Plan Respiratory failure Pneumococcal pneumonia Switch to ceftriaxone 2gm IVPB q24h
[2018-05-23] MEDS ORDERED: CEFTRIAXONE 2 GM in DEXTROSE 5%-WATER 100 ML IVPB SCH (11:30)
[2018-05-23] MEDS: FENTANYL INJECTION 500 MCG in DEXTROSE 5%-WATER - 90 ML IVPB SCH ×2 (14:31→23:09)
[2018-05-23] MEDS ORDERED: DEXTROSE 5%-WATER 100 ML IVPB ONE (14:50)
[2018-05-23] MEDS: CEFTRIAXONE 2 GM in DEXTROSE 5%-WATER 100 ML IVPB SCH (14:51)
[2018-05-23 15:01] LABS: ARTERIAL BLD GAS O2 SATURATION 96.8 % (90-98.9); ARTERIAL BLOOD GAS BASE EXCESS 1.9 meq/l (-2-2); ARTERIAL BLOOD GAS PCO2 57.6 mmHg (35-45); ARTERIAL BLOOD GAS PO2 95.4 mmHg (80-100); ARTERIAL BLOOD GAS pH 7.32 (7.35-7.45)
[2018-05-23 15:04] LABS: ALLENS TEST POSITIVE
--- NOTE | 2018-05-23 15:05 | PN ---
Teaching Attending Note Name of Resident: Conchita Dash ATTENDING PHYSICIAN STATEMENT I saw and evaluated the patient. I reviewed the resident's note and discussed the case with the resident. I agree with the resident's findings and plan as documented. SUBJECTIVE: In icu, intubated, sedated continues. Unable to be weaned off today. OBJECTIVE: Vital Signs Temperature 98.5 F 05/23/18 14:00 Pulse Rate 61 05/23/18 14:00 Respiratory Rate 16 05/23/18 14:00 Blood Pressure 85/54 L 05/23/18 14:00 O2 Sat by Pulse Oximetry (%) 98 05/23/18 13:30 GENERAL:on the vent. sedated and intubated. HEAD: AT/NC with no signs of trauma. EYES: Pupils equal, round and reactive to light, sclera anicteric, conjunctiva clear. EARS, NOSE, THROAT: on the vent. NECK: Normal range of motion, supple , no JVD. RIJ line (day 5) LUNGS: intubated ,sedated , decreased breath sounds bl, positive for rhonchi bilaterally. HEART: Regular rate and rhythm, normal S1 and S2 without murmur, rub or gallop. ABDOMEN: Soft, nontender, not distended, normoactive bowel sounds, no guarding. EXTREMITIES: 2+ pulses, no peripheral edema. NEUROLOGICAL: unable to access , due to sedation PSYCHIATRIC: unable to access due to sedation. SKIN: Warm, dry, normal turgor, no rashes appreciated. CBCD WBC 17.1 K/mm3 (4.0-10.0) H 05/22/18 05:30 RBC 3.72 M/mm3 (3.60-5.2) 05/22/18 05:30 Hgb 9.8 GM/dL (10.7-15.3) L 05/22/18 05:30 Hct 31.4 % (32.4-45.2) L 05/22/18 05:30 MCV 84.5 fl (80-96) 05/22/18 05:30 MCHC 31.0 g/dl (32.0-36.0) L 05/22/18 05:30 RDW 15.3 % (11.6-15.6) 05/22/18 05:30 Plt Count 162 K/MM3 (134-434) 05/22/18 05:30 MPV 9.9 fl (7.5-11.1) 05/22/18 05:30 CMP Sodium 139 mmol/L (136-145) 05/23/18 05:00 Potassium 4.0 mmol/L (3.5-5.1) 05/23/18 05:00 Chloride 104 mmol/L (98-107) 05/23/18 05:00 Carbon Dioxide 29 mmol/L (21-32) 05/23/18 05:00 Anion Gap 6 MMOL/L (8-16) L 05/23/18 05:00 BUN 24 mg/dL (7-18) H 05/23/18 05:00 Creatinine 0.9 mg/dL (0.55-1.3) 05/23/18 05:00 Creat Clearance w eGFR > 60 (>60) 05/23/18 05:00 Random Glucose 193 mg/dL (74-106) H 05/23/18 05:00 Calcium 7.9 mg/dL (8.5-10.1) L 05/23/18 05:00 Total Bilirubin 0.4 mg/dL (0.2-1) 05/23/18 05:00 AST 32 U/L (15-37) 05/23/18 05:00 ALT 45 U/L (13-61) 05/23/18 05:00 Alkaline Phosphatase 72 U/L (45-117) 05/23/18 05:00 Total Protein 5.6 g/dl (6.4-8.2) L 05/23/18 05:00 Albumin 2.2 g/dl (3.4-5.0) L 05/23/18 05:00 CARDIAC ENZYMES Troponin I < 0.02 ng/ml (0.00-0.05) 05/19/18 08:18 Current Medications Generic Name Dose Route Start Last Admin Trade Name Freq PRN Reason Stop Dose Admin Albuterol Sulfate 1 amp 05/19/18 11:35 Ventolin 0.083% Nebulizer Soln - NEB Q4H PRN SHORT OF BREATH/WHEEZING Albuterol/Ipratropium 1 amp 05/19/18 12:00 05/23/18 08:20 Duoneb - NEB 1 amp RQID [facility] Administration Amlodipine Besylate 5 mg 05/20/18 10:00 Norvasc - PO DAILY [facility] Chlorhexidine Gluconate 1 applic 05/19/18 22:00 05/22/18 21:42 Hibiclens For Decolonization - TP 1 applic HS [facility] Administration Enoxaparin Sodium 40 mg 05/21/18 10:00 05/23/18 09:57 Lovenox - SQ 40 mg DAILY [facility] Administration Fentanyl 500 mcg/ Dextrose 100 mls @ 10 mls/hr 05/19/18 14:30 05/23/18 14:31 IVPB 25 mcg/hr TITR [facility] 5 mls/hr Administration Protocol 50 MCG/HR Norepinephrine Bitartrate 8, 500 mls @ 18.75 mls/hr 05/19/18 18:45 05/22/18 21:44 000 mcg/ Dextrose IV Not Given TITR [facility] Protocol 5 MCG/MIN Propofol 1,000,000 mcg in 100 mls @ 3.258 mls/hr 05/22/18 11:45 05/23/18 14: 31 Diprivan - IVPB 35 mcg/kg/min TITR [facility] 11.403 mls/hr Administration Protocol 10 MCG/KG/MIN Sodium Chloride 1,000 mls @ 50 mls/hr 05/22/18 20:21 05/22/18 21:42 Normal Saline - IV 50 mls/hr ASDIR [facility] Administration Ceftriaxone Sodium 2 gm/ 100 mls @ 200 mls/hr 05/23/18 14:45 05/23/18 14:51 Dextrose IVPB 200 mls/hr DAILY [facility] Administration Protocol Methylprednisolone Sodium Succinate 40 mg 05/23/18 10:00 05/23/18 10:21 Solu-Medrol - IVPUSH 40 mg BID [facility] Administration Mupirocin 1 applic 05/19/18 22:00 05/23/18 10:03 Bactroban Ointment (For Decolonization) - NS 05/24/18 21:59 1 applic BID [facility] Administration Oseltamivir Phosphate 75 mg 05/19/18 22:00 05/23/18 10:03 Tamiflu - GT 05/24/18 21:59 75 mg BID [facility] Administration Pantoprazole Sodium 40 mg 05/19/18 11:45 05/23/18 10:02 Protonix Iv IVPUSH 40 mg DAILY [facility] Administration Home Medications Medication Instructions Recorded Salmeterol/Fluticasone [Advair 1 inh PO BID 03/16/12 250Mcg/50Mcg] Albuterol 0.083% Nebulizer Bhavana 1 amp NEB PRN PRN 05/19/18 [Ventolin 0.083% Nebulizer Soln -] Amlodipine Besylate [Norvasc -] 5 mg PO DAILY 05/19/18 Microbiology 05/19/18 15:09 Sputum - Endotrachea Suction/Ventilator Gram Stain - Final 05/19/18 15:09 Sputum - Endotrachea Suction/Ventilator Sputum Culture - Final Streptococcus Pneumoniae Staphylococcus Aureus 05/19/18 08:18 Blood - Peripheral Venous Blood Culture - Preliminary NO GROWTH OBTAINED AFTER 96 HOURS, INCUBATION TO CONTINUE FOR 1 DAYS. 05/19/18 08:18 Blood - Peripheral Venous Blood Culture - Preliminary NO GROWTH OBTAINED AFTER 96 HOURS, INCUBATION TO CONTINUE FOR 1 DAYS. 05/19/18 09:00 Nasopharyngeal Aspirate Respiratory Virus (PCR) - Preliminary 05/19/18 15:09 Urine - Urine - Catheterized Legionella Antigen - Final 05/19/18 15:09 Urine - Urine - Catheterized Streptococcus pneumoniae Antigen (M - Final 05/19/18 08:30 Urine - Urine Clean Catch Urine Culture - Final NO GROWTH OBTAINED CXR: left base infiltrate with effusion. ASSESSMENT AND PLAN: The patient is a 67 year old female with a significant PMHx of COPD on 2 L home Oxygen at home with previous hx of intubation, HTN, left sided lung Ca and right sided breast cancer s/p Rtx , presented with SOB and cough x few days. patient was placed on Bipap in ED, and admitted to icu for further care. # Acute hypoxic hypercapnic respiratory failure s/p intubation on the vent: Due to Pneumonia / COPD exacerbation on IV antibiotics switched to Rocephin 2gm todays . continue. Failed weaning trial again, further management as per ICU team, on pressors now, On fentanyl/ midazolam drip/propofol continue. On levophed titrate as needed, off phenelephrine now # Acute COPD exacerbation s/p intubation : on Duonebs, solu-medrol IV, continue current managment. daily weaning trials as per ICU team # Acute pneumonia growing strept.pneumonia ,with left sided effusion: switched IV antibiotics Zosyn/ vancomycin. to rocephin as per ID. urinary antigen for strept. pneumo and negative for legionella. sensitive to Rocephin both organism. #HTN: Hold Norvasc 5 mg since hypotensive . DVT PPX:Heparin sq GI Px: Protonix px tamiflu as per id daily weaning trial.
--- NOTE | 2018-05-23 15:07 | PN ---
Physical Exam: SUBJECTIVE: Patient seen and examined. She is awake, off sedation, still intubated. OBJECTIVE: Vital Signs Period Temp Pulse Resp BP Sys/Sawyer Pulse Ox Last 24 Hr 98.5 F-99.8 F 61-118 11-25 85-152/54-94 98-100 GENERAL: The patient is awake, alert, in no acute distress. HEAD: Normal with no signs of trauma. EYES: PERRL, conjunctiva clear. ENT: moist mucous membranes, intubated. NECK: Trachea midline, supple. LUNGS: Breath sounds equal, occasional rhales, no accessory muscle use. HEART: Regular rate and rhythm, S1, S2 without murmur, rub or gallop. ABDOMEN: Soft, nontender, nondistended, normoactive bowel sounds, no guarding, no masses. EXTREMITIES: 2+ pulses, warm, no edema. NEUROLOGICAL: Awake, off sedation SKIN: Warm, dry, normal turgor, no rashes. Laboratory Results - last 24 hr 05/23/18 05/23/18 05/23/18 05:00 06:05 15:00 Anticoagulation Therapy No Result Required. Puncture Site Left radial Right radial ABG pH 7.30 L 7.32 L ABG pCO2 at Pt Temp 59.1 H 57.6 H ABG pO2 at Pt Temp 78.1 L 95.4 D ABG HCO3 28.5 H 28.6 H ABG O2 Sat (Measured) 94.9 96.8 ABG O2 Content 13.3 L 15.4 ABG Base Excess 1.8 1.9 Bj Test Positive Positive O2 Delivery Device Vent Vent Oxygen Flow Rate 60% 60 Vent Mode No Result Required. Vent Rate No Result Required. 16 Mechanical Rate No Result Required. PEEP 8.0 Pressure Support Vent No Result Required. 400 Sodium 139 Potassium 4.0 Chloride 104 Carbon Dioxide 29 Anion Gap 6 L BUN 24 H Creatinine 0.9 Creat Clearance w eGFR > 60 Random Glucose 193 H Calcium 7.9 L Phosphorus 3.4 Magnesium 3.0 H Total Bilirubin 0.4 AST 32 ALT 45 Alkaline Phosphatase 72 Total Protein 5.6 L Albumin 2.2 L Active Medications Generic Name Dose Route Start Last Admin Trade Name Freq PRN Reason Stop Dose Admin Albuterol Sulfate 1 amp 05/19/18 11:35 Ventolin 0.083% Nebulizer Soln - NEB Q4H PRN SHORT OF BREATH/WHEEZING Albuterol/Ipratropium 1 amp 05/19/18 12:00 05/23/18 08:20 Duoneb - NEB 1 amp RQID BRIE Administration Amlodipine Besylate 5 mg 05/20/18 10:00 Norvasc - PO DAILY BRIE Chlorhexidine Gluconate 1 applic 05/19/18 22:00 05/22/18 21:42 Hibiclens For Decolonization - TP 1 applic HS BRIE Administration Enoxaparin Sodium 40 mg 05/21/18 10:00 05/23/18 09:57 Lovenox - SQ 40 mg DAILY BRIE Administration Fentanyl 500 mcg/ Dextrose 100 mls @ 10 mls/hr 05/19/18 14:30 05/23/18 14:31 IVPB 25 mcg/hr TITR BRIE 5 mls/hr Administration Protocol 50 MCG/HR Norepinephrine Bitartrate 8, 500 mls @ 18.75 mls/hr 05/19/18 18:45 05/22/18 21:44 000 mcg/ Dextrose IV Not Given TITR BRIE Protocol 5 MCG/MIN Propofol 1,000,000 mcg in 100 mls @ 3.258 mls/hr 05/22/18 11:45 05/23/18 14: 31 Diprivan - IVPB 35 mcg/kg/min TITR BRIE 11.403 mls/hr Administration Protocol 10 MCG/KG/MIN Sodium Chloride 1,000 mls @ 50 mls/hr 05/22/18 20:21 05/22/18 21:42 Normal Saline - IV 50 mls/hr ASDIR BRIE Administration Ceftriaxone Sodium 2 gm/ 100 mls @ 200 mls/hr 05/23/18 14:45 05/23/18 14:51 Dextrose IVPB 200 mls/hr DAILY BRIE Administration Protocol Methylprednisolone Sodium Succinate 40 mg 05/23/18 10:00 05/23/18 10:21 Solu-Medrol - IVPUSH 40 mg BID BRIE Administration Mupirocin 1 applic 05/19/18 22:00 05/23/18 10:03 Bactroban Ointment (For Decolonization) - NS 05/24/18 21:59 1 applic BID BRIE Administration Oseltamivir Phosphate 75 mg 05/19/18 22:00 05/23/18 10:03 Tamiflu - GT 05/24/18 21:59 75 mg BID BRIE Administration Pantoprazole Sodium 40 mg 05/19/18 11:45 05/23/18 10:02 Protonix Iv IVPUSH 40 mg DAILY BRIE Administration ASSESSMENT/PLAN: The patient is a 67 year old female with past medical history of COPD with hx of intubation, breast and lung CA, perforated ulcer, HTN, presented with worsening shortness of breath with increased sputum production for a few days. Acute hypoxic respiratory failure -likely due COPD exacerbation, bilateral pneumonia -Intubated and sedated, failed weaning trial -Duonebs RQID, Albuterol q4h PRN -IV Methylprednisolone 40mg BID -cont Ceftriaxone 2gm IVPB q24h -CXR daily Sepsis due to PNA: -titrating down IV Levophed, today at 2 mcg/hr -ID consulted, will f/u recs -continue Ceftriaxone 2gm IVPB q24h -Urine pneumococcal antigens positive -Sputum cx: moderate gram + cocci HTN -Hold anti-hypertensives -on Levophed FEN -NS at 50 cc/hr -monitor electrolytes -Tube feed osmolite 1/2 Prophylaxis DVT: Lovenox 50 mg sq BID GI: IV protonix 40mg daily Disposition med surg Problem List - Problems (1) COPD (chronic obstructive pulmonary disease) Code(s): J44.9 - CHRONIC OBSTRUCTIVE PULMONARY DISEASE, UNSPECIFIED Qualifiers: COPD type: unspecified COPD Qualified Code(s): J44.9 - Chronic obstructive pulmonary disease, unspecified (2) Pneumonia Code(s): J18.9 - PNEUMONIA, UNSPECIFIED ORGANISM Qualifiers: Pneumonia type: due to unspecified organism Laterality: bilateral Lung location: unspecified part of lung Qualified Code(s): J18.9 - Pneumonia, unspecified organism (3) Respiratory distress Code(s): R06.03 - ACUTE RESPIRATORY DISTRESS Visit type - Emergency Visit Emergency Visit: No - New Patient This patient is new to me today: No - Critical Care Critical Care patient: No - Discharge Referral Referred to [facility] No
[2018-05-23] MEDS: SODIUM CHLORIDE 1,000 ML IV SCH (21:47)
[2018-05-23] MEDS: CHLORHEXIDINE GLUCONATE 4% CLEANSER FOR DECOLONIZATION TP SCH (21:48)
[2018-05-23] MEDS ORDERED: fentaNYL CITRATE 250 MCG/5 ML VIAL ONE (22:26)
[2018-05-23] MEDS: NOREPINEPHRINE BITARTRATE 8,000 MCG in DEXTROSE 5%-WATER - 492 ML IV SCH (23:08)
[2018-05-24] MEDS: PROPOFOL 1,000,000 MCG/100 ML VIAL IVPB SCH ×2 (05:40→18:38)
[2018-05-24 05:58] LABS: BASO % 0.1 % (0-2.0); EOS % 0.8 % (0-4.5); HEMATOCRIT 30.4 % (32.4-45.2); HEMOGLOBIN 10.1 GM/dL (10.7-15.3); MCH 27.7 pg (25.7-33.7); MCHC 33.2 g/dl (32.0-36.0); MEAN CELL VOLUME 83.3 fl (80-96); MEAN PLT VOLUME 9.4 fl (7.5-11.1); MONO % 8.2 % (3.8-10.2); NEUT % 89.9 % (42.8-82.8); PLATELET COUNT 216 K/MM3 (134-434); RBC 3.64 M/mm3 (3.60-5.2); RDW 16.2 % (11.6-15.6)
[2018-05-24 06:31] LABS: ALBUMIN 1.8 g/dl (3.4-5.0); ALK PHOS 61 U/L (45-117); ANION GAP 2 MMOL/L (8-16); BILIRUBIN,TOTAL 0.2 mg/dL (0.2-1); BLOOD UREA NITROGEN 30 mg/dL (7-18); CALCIUM 7.7 mg/dL (8.5-10.1); CHLORIDE 106 mmol/L (98-107); CO2 33 mmol/L (21-32); CREATININE 0.8 mg/dL (0.55-1.3); GLUCOSE,RANDOM 121 mg/dL (74-106); MAGNESIUM 2.7 mg/dL (1.8-2.4); PHOSPHOROUS 3.6 mg/dL (2.5-4.9); POTASSIUM 4.6 mmol/L (3.5-5.1); SGOT/AST 17 U/L (15-37); SGPT/ALT 31 U/L (13-61); SODIUM 140 mmol/L (136-145); TOT PROT 4.7 g/dl (6.4-8.2)
[2018-05-24] MEDS: ALBUTEROL SO4 2.5/IPRATROPIUM 0.5 INH SOL 3 ML VIAL.NEB. NEB SCH ×3 (07:50→16:35)
[2018-05-24 08:39] LABS: ARTERIAL BLD GAS O2 SATURATION 97.4 % (90-98.9); ARTERIAL BLOOD GAS BASE EXCESS 3.3 meq/l (-2-2); ARTERIAL BLOOD GAS PCO2 55.4 mmHg (35-45); ARTERIAL BLOOD GAS PO2 99.6 mmHg (80-100); ARTERIAL BLOOD GAS pH 7.34 (7.35-7.45)
[2018-05-24 08:41] LABS: ALLENS TEST POSITIVE
--- NOTE | 2018-05-24 08:41 | PN ---
Physical Exam: SUBJECTIVE: Patient seen and examined at bedside. No overnight events. Remains intubated and sedated. Daily AM sedation holiday upcoming. OBJECTIVE: Vital Signs Period Temp Pulse Resp BP Sys/Sawyer Pulse Ox Last 24 Hr 97.9 F-98.9 F 61-99 16-18 85-139/54-88 98-98 GENERAL: Intubated and sedated at time of encounter, due for sedation holiday HEAD: NC/AT EYES: PERRL ENT: Dry mucous membranes NECK: Trachea midline, no JVD or LAD LUNGS: clearer to ascultation, diffuse rhonchi noted HEART: RRR no m/r/g ABDOMEN: +bs, soft, no pain response to deep palpation EXTREMITIES: 2+ pulses, warm, well-perfused, no edema. NEUROLOGICAL: unable to assess PSYCH: unable to assess SKIN: Warm, dry, normal turgor Laboratory Results - last 24 hr 05/23/18 05/24/18 05/24/18 15:00 05:00 05:00 WBC 15.0 H RBC 3.64 Hgb 10.1 L Hct 30.4 L MCV 83.3 MCH 27.7 MCHC 33.2 RDW 16.2 H Plt Count 216 D MPV 9.4 Absolute Neuts (auto) 13.5 H Neutrophils % 89.9 H Lymphocytes % 1.0 L D Monocytes % 8.2 Eosinophils % 0.8 D Basophils % 0.1 Nucleated RBC % 0 Puncture Site Right radial ABG pH 7.32 L ABG pCO2 at Pt Temp 57.6 H ABG pO2 at Pt Temp 95.4 D ABG HCO3 28.6 H ABG O2 Sat (Measured) 96.8 ABG O2 Content 15.4 ABG Base Excess 1.9 Bj Test Positive O2 Delivery Device Vent Oxygen Flow Rate 60 Vent Rate 16 PEEP 8.0 Pressure Support Vent 400 Sodium 140 Potassium 4.6 Chloride 106 Carbon Dioxide 33 H Anion Gap 2 L BUN 30 H Creatinine 0.8 Creat Clearance w eGFR > 60 Random Glucose 121 H Calcium 7.7 L Phosphorus 3.6 Magnesium 2.7 H Total Bilirubin 0.2 AST 17 ALT 31 Alkaline Phosphatase 61 Total Protein 4.7 L Albumin 1.8 L Active Medications Generic Name Dose Route Start Last Admin Trade Name Freq PRN Reason Stop Dose Admin Albuterol Sulfate 1 amp 05/19/18 11:35 Ventolin 0.083% Nebulizer Soln - NEB Q4H PRN SHORT OF BREATH/WHEEZING Albuterol/Ipratropium 1 amp 05/19/18 12:00 05/23/18 20:33 Duoneb - NEB 1 amp RQID BRIE Administration Amlodipine Besylate 5 mg 05/20/18 10:00 Norvasc - PO DAILY BRIE Chlorhexidine Gluconate 1 applic 05/19/18 22:00 05/23/18 21:48 Hibiclens For Decolonization - TP 1 applic HS BRIE Administration Enoxaparin Sodium 40 mg 05/21/18 10:00 05/23/18 09:57 Lovenox - SQ 40 mg DAILY BRIE Administration Fentanyl 500 mcg/ Dextrose 100 mls @ 10 mls/hr 05/19/18 14:30 05/23/18 23:13 IVPB 50 mcg/hr TITR BRIE 10 mls/hr Titration Protocol 50 MCG/HR Norepinephrine Bitartrate 8, 500 mls @ 18.75 mls/hr 05/19/18 18:45 05/23/18 23:08 000 mcg/ Dextrose IV 4 mcg/min TITR BRIE 15 mls/hr Administration Protocol 5 MCG/MIN Propofol 1,000,000 mcg in 100 mls @ 3.258 mls/hr 05/22/18 11:45 05/24/18 05: 40 Diprivan - IVPB 35 mcg/kg/min TITR BRIE 11.403 mls/hr Administration Protocol 10 MCG/KG/MIN Sodium Chloride 1,000 mls @ 50 mls/hr 05/22/18 20:21 05/23/18 21:47 Normal Saline - IV 50 mls/hr ASDIR BRIE Administration Ceftriaxone Sodium 2 gm/ 100 mls @ 200 mls/hr 05/23/18 14:45 05/23/18 14:51 Dextrose IVPB 200 mls/hr DAILY BRIE Administration Protocol Methylprednisolone Sodium Succinate 40 mg 05/23/18 10:00 05/23/18 21:48 Solu-Medrol - IVPUSH 40 mg BID BRIE Administration Mupirocin 1 applic 05/19/18 22:00 05/23/18 21:47 Bactroban Ointment (For Decolonization) - NS 05/24/18 21:59 1 applic BID BRIE Administration Oseltamivir Phosphate 75 mg 05/19/18 22:00 05/23/18 21:48 Tamiflu - GT 05/24/18 21:59 75 mg BID BRIE Administration Pantoprazole Sodium 40 mg 05/19/18 11:45 05/23/18 10:02 Protonix Iv IVPUSH 40 mg DAILY BRIE Administration ASSESSMENT/PLAN: 67 y/o F w/ PMHx COPD on 2L O2, breast and lung Ca, perforated ulcer, prior intubation, p/w lethargy, SOB, increased WOB, found to have b/l infiltrates on CXR. Decompensated and underwent intubation and RIJ central line placement. In ICU in septic shock w/ acute on chronic respiratory failure 2/2 PNA. #CV -RIJ line placed (day 6), on levophed @4, will attempt to wean off pressors -poor quality echo, RV systolic pressure elevated #pulmonary -intubated, -sedation holiday -SBTs -bronchodilators -solumedrol to 40 BID -mild b/l improvement on CXR -ABG improved -f/u ABG, CXR -has previously fatigued ~30 mins into SBT, will attempt extubation following SBT today #ID -ID following -urine pneumococcal antigens positive -sputum culture positive for S pneumo and S aureus -cont Ceftriaxone (day 2, day 5 overall of ABx), further ABx as per ID #FEN -NS 50 -monitor and correct electrolytes -vital tube feeds per linoleum layer apprentice recommendations #PPx -DVT: Lovenox subq -GI: IV PTX #code -full #dispo -continue to monitor in ICU Visit type - Emergency Visit Emergency Visit: No - New Patient This patient is new to me today: No - Critical Care Critical Care patient: Yes Total Critical Care Time (in minutes): 40 Critical Care Statement: The care of this patient involved high complexity decision making to prevent further life threatening deterioration of the patient 's condition and/or to evaluate & treat vital organ system(s) failure or risk of failure.
[2018-05-24] MEDS: MUPIROCIN 2% TOPICAL OINTMENT FOR DECOLONIZATION NS SCH (09:32)
[2018-05-24] MEDS ORDERED: DEXTROSE 5%-WATER 100 ML IVPB ONE (09:34)
[2018-05-24] MEDS: CEFTRIAXONE 2 GM in DEXTROSE 5%-WATER 100 ML IVPB SCH (09:37)
[2018-05-24] MEDS: ENOXAPARIN NA (PORCINE) 40 MG/0.4 ML DISP.SYRIN SQ SCH (09:37)
[2018-05-24] MEDS: PANTOPRAZOLE SODIUM 40 MG VIAL IVPUSH SCH (09:38)
[2018-05-24] MEDS: methylPREDNISolone NA SUCC 40 MG/1 ML VIAL IVPUSH SCH ×2 (09:38→21:53)
[2018-05-24] MEDS: OSELTAMIVIR PHOSPHATE 75 MG CAPSULE GT SCH (09:50)
--- NOTE | 2018-05-24 10:10 | PN ---
Progress Note, Physician History of Present Illness: Awake and alert on ventilator Off sedation Remains hyoptensive on pressors Breathing non-labored Afebrile Less tracheal secretions CXR clearing bilaterally Sputum c/s Pneumococcus, MSSA - Current Medication List Current Medications: Active Medications Albuterol Sulfate (Ventolin 0.083% Nebulizer Soln -) 1 amp NEB Q4H PRN PRN Reason: SHORT OF BREATH/WHEEZING Albuterol/Ipratropium (Duoneb -) 1 amp NEB RQID [facility] Last Admin: 05/23/18 20:33 Dose: 1 amp Amlodipine Besylate (Norvasc -) 5 mg PO DAILY [facility] Chlorhexidine Gluconate (Hibiclens For Decolonization -) 1 applic TP HS [facility] Last Admin: 05/23/18 21:48 Dose: 1 applic Enoxaparin Sodium (Lovenox -) 40 mg SQ DAILY [facility] Last Admin: 05/24/18 09:37 Dose: 40 mg Fentanyl 500 mcg/ Dextrose 100 mls @ 10 mls/hr IVPB TITR [facility]; Protocol Last Titration: 05/23/18 23:13 Dose: 50 mcg/hr, 10 mls/hr Norepinephrine Bitartrate 8, (000 mcg/ Dextrose) 500 mls @ 18.75 mls/hr IV TITR BRIE; Protocol Last Admin: 05/23/18 23:08 Dose: 4 mcg/min, 15 mls/hr Propofol (Diprivan -) 1,000,000 mcg in 100 mls @ 3.258 mls/hr IVPB TITR [facility]; Protocol Last Admin: 05/24/18 05:40 Dose: 35 mcg/kg/min, 11.403 mls/hr Sodium Chloride (Normal Saline -) 1,000 mls @ 50 mls/hr IV ASDIR BRIE Last Admin: 05/23/18 21:47 Dose: 50 mls/hr Ceftriaxone Sodium 2 gm/ (Dextrose) 100 mls @ 200 mls/hr IVPB DAILY [facility]; Protocol Last Admin: 05/24/18 09:37 Dose: 200 mls/hr Methylprednisolone Sodium Succinate (Solu-Medrol -) 40 mg IVPUSH BID [facility] Last Admin: 05/24/18 09:38 Dose: 40 mg Mupirocin (Bactroban Ointment (For Decolonization) -) 1 applic NS BID [facility] Stop: 05/24/18 21:59 Last Admin: 05/24/18 09:32 Dose: 1 applic Oseltamivir Phosphate (Tamiflu -) 75 mg GT BID BRIE Stop: 05/24/18 21:59 Last Admin: 05/24/18 09:50 Dose: 75 mg Pantoprazole Sodium (Protonix Iv) 40 mg IVPUSH DAILY BRIE Last Admin: 05/24/18 09:38 Dose: 40 mg - Objective Vital Signs: Vital Signs Temperature 97.9 F 05/24/18 06:00 Pulse Rate 65 05/24/18 08:00 Respiratory Rate 16 05/24/18 08:32 Blood Pressure 103/59 L 05/24/18 08:00 O2 Sat by Pulse Oximetry (%) 98 05/24/18 08:32 Constitutional: Yes: No Distress Cardiovascular: Yes: Regular Rate and Rhythm, S1, S2 Respiratory: Yes: Mechanically Ventilated Gastrointestinal: Yes: Normal Bowel Sounds, Soft. No: Tenderness Edema: No Labs: CBC, BMP 05/24/18 05:00 05/24/18 05:00 INR, PTT INR 1.25 (0.83-1.09) H 05/19/18 08:18 Assessment/Plan Respiratory failure Pneumococcal pneumonia Leukocytosis- improved Continue ceftriaxone 2gm IVPB q24h
--- NOTE | 2018-05-24 12:01 | PN ---
Teaching Attending Note Name of Resident: Dhruv Strong ATTENDING PHYSICIAN STATEMENT I saw and evaluated the patient. I reviewed the resident's note and discussed the case with the resident. I agree with the resident's findings and plan as documented. SUBJECTIVE: Pt seen and examined in the ICU. Awake, following commands, tolerated CPAP/PS and subsequently extubated during rounds. OBJECTIVE: Vital Signs Period Temp Pulse Resp BP Sys/Sawyer Pulse Ox Last 24 Hr 97.9 F-99.1 F 61-109 13-18 85-128/54-82 95-98 Intake & Output 05/21/18 05/22/18 05/23/18 05/24/18 23:59 23:59 23:59 23:59 Intake Total 4825 4337.0 3878.6 1185.6 Output Total 1650 1750 1900 800 Balance 3175 2587.0 1978.6 385.6 Weight 51.437 kg 54.3 kg 54.63 kg 55.367 kg Gen: extubated Heart: tachycardic, regular Lung: distant breath sounds, no wheezes Abd: soft, nontender Ext: no edema CBC, BMP 05/24/18 05:00 05/24/18 05:00 Active Medications Albuterol Sulfate (Ventolin 0.083% Nebulizer Soln -) 1 amp NEB Q4H PRN PRN Reason: SHORT OF BREATH/WHEEZING Albuterol/Ipratropium (Duoneb -) 1 amp NEB RQID [facility] Last Admin: 05/24/18 11:35 Dose: 1 amp Amlodipine Besylate (Norvasc -) 5 mg PO DAILY [facility] Chlorhexidine Gluconate (Hibiclens For Decolonization -) 1 applic TP HS [facility] Last Admin: 05/23/18 21:48 Dose: 1 applic Enoxaparin Sodium (Lovenox -) 40 mg SQ DAILY [facility] Last Admin: 05/24/18 09:37 Dose: 40 mg Fentanyl 500 mcg/ Dextrose 100 mls @ 10 mls/hr IVPB TITR BRIE; Protocol Last Titration: 05/24/18 10:26 Dose: 0 mcg/hr, 0 mls/hr Norepinephrine Bitartrate 8, (000 mcg/ Dextrose) 500 mls @ 18.75 mls/hr IV TITR BRIE; Protocol Last Titration: 05/24/18 10:26 Dose: 0 mcg/min, 0 mls/hr Propofol (Diprivan -) 1,000,000 mcg in 100 mls @ 3.258 mls/hr IVPB TITR [facility]; Protocol Last Titration: 05/24/18 09:40 Dose: 0 mcg/kg/min, 0 mls/hr Sodium Chloride (Normal Saline -) 1,000 mls @ 50 mls/hr IV ASDIR [facility] Last Admin: 05/23/18 21:47 Dose: 50 mls/hr Ceftriaxone Sodium 2 gm/ (Dextrose) 100 mls @ 200 mls/hr IVPB DAILY [facility]; Protocol Last Admin: 05/24/18 09:37 Dose: 200 mls/hr Methylprednisolone Sodium Succinate (Solu-Medrol -) 40 mg IVPUSH BID [facility] Last Admin: 05/24/18 09:38 Dose: 40 mg Mupirocin (Bactroban Ointment (For Decolonization) -) 1 applic NS BID [facility] Stop: 05/24/18 21:59 Last Admin: 05/24/18 09:32 Dose: 1 applic Oseltamivir Phosphate (Tamiflu -) 75 mg GT BID [facility] Stop: 05/24/18 21:59 Last Admin: 05/24/18 09:50 Dose: 75 mg Pantoprazole Sodium (Protonix Iv) 40 mg IVPUSH DAILY [facility] Last Admin: 05/24/18 09:38 Dose: 40 mg ASSESSMENT AND PLAN: Acute on Chronic Hypoxic and Hypercapneic Respiratory Failure Pneumonia Severe Sepsis ARDS Acute COPD Exacerbation Lactic Acidosis h/o Lung Cancer - pt extubated - taper Fio2 to keep Spo2 >90% - BiPAP as needed to assist in work of breathing - continue antibiotics - continue medrol - inhaled bronchodilators - DVT/GI prophylaxis - continue ICU monitoring critical care time spent in reviewing chart, evaluating patient and formulating plan 35 min
[2018-05-24 12:12] LABS: ANISOCYTOSIS 0; MACROCYTOSIS 0; OVALOCYTE 2+; PLATELET ESTIMATE NORMAL
--- NOTE | 2018-05-24 14:35 | PN ---
Teaching Attending Note Name of Resident: Lore Vega ATTENDING PHYSICIAN STATEMENT I saw and evaluated the patient. I reviewed the resident's note and discussed the case with the resident. I agree with the resident's findings and plan as documented. SUBJECTIVE: Patient is in icu. No new changes. OBJECTIVE: Vital Signs Temperature 98.2 F 05/24/18 14:00 Pulse Rate 115 H 05/24/18 14:00 Respiratory Rate 13 05/24/18 14:00 Blood Pressure 119/82 05/24/18 14:00 O2 Sat by Pulse Oximetry (%) 95 05/24/18 14:27 GENERAL:on the vent. sedated and intubated. HEAD: AT/NC with no signs of trauma. EYES: Pupils equal, round and reactive to light, sclera anicteric, conjunctiva clear. EARS, NOSE, THROAT: on the vent. NECK: Normal range of motion, supple , no JVD. RIJ line LUNGS: intubated ,sedated , decreased breath sounds bl, positive for rhonchi bilaterally. HEART: Regular rate and rhythm, normal S1 and S2 without murmur, rub or gallop. ABDOMEN: Soft, nontender, not distended, normoactive bowel sounds, no guarding. EXTREMITIES: 2+ pulses, no peripheral edema. NEUROLOGICAL: unable to access , due to sedation PSYCHIATRIC: unable to access due to sedation. SKIN: Warm, dry, normal turgor, no rashes appreciated. CBCD WBC 15.0 K/mm3 (4.0-10.0) H 05/24/18 05:00 RBC 3.64 M/mm3 (3.60-5.2) 05/24/18 05:00 Hgb 10.1 GM/dL (10.7-15.3) L 05/24/18 05:00 Hct 30.4 % (32.4-45.2) L 05/24/18 05:00 MCV 83.3 fl (80-96) 05/24/18 05:00 MCHC 33.2 g/dl (32.0-36.0) 05/24/18 05:00 RDW 16.2 % (11.6-15.6) H 05/24/18 05:00 Plt Count 216 K/MM3 (134-434) D 05/24/18 05:00 MPV 9.4 fl (7.5-11.1) 05/24/18 05:00 CMP Sodium 140 mmol/L (136-145) 05/24/18 05:00 Potassium 4.6 mmol/L (3.5-5.1) 05/24/18 05:00 Chloride 106 mmol/L (98-107) 05/24/18 05:00 Carbon Dioxide 33 mmol/L (21-32) H 05/24/18 05:00 Anion Gap 2 MMOL/L (8-16) L 05/24/18 05:00 BUN 30 mg/dL (7-18) H 05/24/18 05:00 Creatinine 0.8 mg/dL (0.55-1.3) 05/24/18 05:00 Creat Clearance w eGFR > 60 (>60) 05/24/18 05:00 Random Glucose 121 mg/dL (74-106) H 05/24/18 05:00 Calcium 7.7 mg/dL (8.5-10.1) L 05/24/18 05:00 Total Bilirubin 0.2 mg/dL (0.2-1) 05/24/18 05:00 AST 17 U/L (15-37) 05/24/18 05:00 ALT 31 U/L (13-61) 05/24/18 05:00 Alkaline Phosphatase 61 U/L (45-117) 05/24/18 05:00 Total Protein 4.7 g/dl (6.4-8.2) L 05/24/18 05:00 Albumin 1.8 g/dl (3.4-5.0) L 05/24/18 05:00 CARDIAC ENZYMES Troponin I < 0.02 ng/ml (0.00-0.05) 05/19/18 08:18 Current Medications Generic Name Dose Route Start Last Admin Trade Name Freq PRN Reason Stop Dose Admin Albuterol Sulfate 1 amp 05/19/18 11:35 Ventolin 0.083% Nebulizer Soln - NEB Q4H PRN SHORT OF BREATH/WHEEZING Albuterol/Ipratropium 1 amp 05/19/18 12:00 05/24/18 11:35 Duoneb - NEB 1 amp RQID BRIE Administration Amlodipine Besylate 5 mg 05/20/18 10:00 Norvasc - PO DAILY [facility] Chlorhexidine Gluconate 1 applic 05/19/18 22:00 05/23/18 21:48 Hibiclens For Decolonization - TP 1 applic HS [facility]RIE Administration Enoxaparin Sodium 40 mg 05/21/18 10:00 05/24/18 09:37 Lovenox - SQ 40 mg DAILY [facility]RIE Administration Fentanyl 500 mcg/ Dextrose 100 mls @ 10 mls/hr 05/19/18 14:30 05/24/18 10:26 IVPB 0 mcg/hr TITR BRIE 0 mls/hr Titration Protocol 50 MCG/HR Norepinephrine Bitartrate 8, 500 mls @ 18.75 mls/hr 05/19/18 18:45 05/24/18 10:26 000 mcg/ Dextrose IV 0 mcg/min TITR BRIE 0 mls/hr Titration Protocol 5 MCG/MIN Propofol 1,000,000 mcg in 100 mls @ 3.258 mls/hr 05/22/18 11:45 05/24/18 09: 40 Diprivan - IVPB 0 mcg/kg/min TITR BRIE 0 mls/hr Titration Protocol 10 MCG/KG/MIN Sodium Chloride 1,000 mls @ 50 mls/hr 05/22/18 20:21 05/23/18 21:47 Normal Saline - IV 50 mls/hr ASDIR [facility]RIE Administration Ceftriaxone Sodium 2 gm/ 100 mls @ 200 mls/hr 05/23/18 14:45 05/24/18 09:37 Dextrose IVPB 200 mls/hr DAILY [facility] Administration Protocol Methylprednisolone Sodium Succinate 40 mg 05/23/18 10:00 05/24/18 09:38 Solu-Medrol - IVPUSH 40 mg BID [facility]RIE Administration Mupirocin 1 applic 05/19/18 22:00 05/24/18 09:32 Bactroban Ointment (For Decolonization) - NS 05/24/18 21:59 1 applic BID [facility]RIE Administration Oseltamivir Phosphate 75 mg 05/19/18 22:00 05/24/18 09:50 Tamiflu - GT 05/24/18 21:59 75 mg BID BRIE Administration Pantoprazole Sodium 40 mg 05/19/18 11:45 05/24/18 09:38 Protonix Iv IVPUSH 40 mg DAILY [facility]RIE Administration Home Medications Medication Instructions Recorded Salmeterol/Fluticasone [Advair 1 inh PO BID 03/16/12 250Mcg/50Mcg] Albuterol 0.083% Nebulizer Bhavana 1 amp NEB PRN PRN 05/19/18 [Ventolin 0.083% Nebulizer Soln -] Amlodipine Besylate [Norvasc -] 5 mg PO DAILY 05/19/18 Microbiology 05/19/18 08:18 Blood - Peripheral Venous Blood Culture - Final NO GROWTH AFTER 5 DAYS INCUBATION 05/19/18 08:18 Blood - Peripheral Venous Blood Culture - Final NO GROWTH AFTER 5 DAYS INCUBATION 05/19/18 15:09 Sputum - Endotrachea Suction/Ventilator Gram Stain - Final 05/19/18 15:09 Sputum - Endotrachea Suction/Ventilator Sputum Culture - Final Streptococcus Pneumoniae Staphylococcus Aureus 05/19/18 09:00 Nasopharyngeal Aspirate Respiratory Virus (PCR) - Preliminary 05/19/18 15:09 Urine - Urine - Catheterized Legionella Antigen - Final 05/19/18 15:09 Urine - Urine - Catheterized Streptococcus pneumoniae Antigen (M - Final 05/19/18 08:30 Urine - Urine Clean Catch Urine Culture - Final NO GROWTH OBTAINED ASSESSMENT AND PLAN: The patient is a 67 year old female with a significant PMHx of COPD on 2 L home Oxygen at home with previous hx of intubation, HTN, left sided lung Ca and right sided breast cancer s/p Rtx , presented with SOB and cough x few days. patient was placed on Bipap in ED, and admitted to icu for further care. # Acute hypoxic hypercapnic respiratory failure s/p intubation on the vent: Due to Pneumonia / COPD exacerbation on IV antibiotics switched to Rocephin 2gm also on Tamiflu as per ID continue. Failed weaning trial again, further management as per ICU team, on pressors now, On fentanyl/ midazolam drip/ propofol continue. On levophed titrate as needed, off phenelephrine now # Acute COPD exacerbation s/p intubation: unable to wean her off the vent. continue Duonebs, solu-medrol IV, continue current management. continue daily weaning trials as per ICU team # Acute pneumonia growing strept pneumonia, with left sided effusion: switched IV antibiotics Zosyn/vancomycin to rocephin as per ID. urinary antigen for strept. pneumo positive and negative for legionella. sensitive to Rocephin. #HTN: Hold Norvasc 5 mg since hypotensive . DVT PPX:Heparin sq GI Px: Protonix px tamiflu as per id daily weaning trial.
--- NOTE | 2018-05-24 15:49 | PN ---
Physical Exam: SUBJECTIVE: Patient seen and examined at bedside this morning. Intubated and sedated. Vent settings: 16/400/60/8. On Levophed 4, Fentanyl 10 and Propofol 35. Weaning trial was done, and patient was successfully extubated and put on Bipap. OBJECTIVE: Vital Signs Period Temp Pulse Resp BP Sys/Sawyer Pulse Ox Last 24 Hr 97.9 F-99.1 F 65-115 13-18 85-137/54-92 91-98 GENERAL: Intubated and sedated at time of encounter. Responds to voice and follows commands. HEAD: Normal with no signs of trauma. HEENT: PERRLA, dry mucous membranes NECK: soft, supple, trachea midline LUNGS: Coarse breath sounds bilaterally HEART: Regular rate and rhythm, S1, S2 without murmur, rub or gallop. ABDOMEN: Soft, nontender, nondistended, normoactive bowel sounds EXTREMITIES: 2+ pulses, warm, well-perfused, no edema. Laboratory Results - last 24 hr 05/24/18 05/24/18 05/24/18 05:00 05:00 07:23 WBC 15.0 H RBC 3.64 Hgb 10.1 L Hct 30.4 L MCV 83.3 MCH 27.7 MCHC 33.2 RDW 16.2 H Plt Count 216 D MPV 9.4 Absolute Neuts (auto) 13.5 H Neutrophils % 89.9 H Neutrophils % (Manual) 89.0 H Band Neutrophils % 0.0 Lymphocytes % 1.0 L D Lymphocytes % (Manual) 1.0 L Monocytes % 8.2 Monocytes % (Manual) 3 L D Eosinophils % 0.8 D Eosinophils % (Manual) 0.0 Basophils % 0.1 Basophils % (Manual) 0.0 Myelocytes % (Man) 1 D Promyelocytes % (Man) 2 D Blast Cells % (Manual) 0 Nucleated RBC % 0 Metamyelocytes 1 D Hypochromia 0 Platelet Estimate Normal Polychromasia 0 Poikilocytosis 0 Anisocytosis 0 Microcytosis 0 Macrocytosis 0 Spherocytes 2+ Ovalocytes 2+ Puncture Site Left radial ABG pH 7.34 L ABG pCO2 at Pt Temp 55.4 H ABG pO2 at Pt Temp 99.6 ABG HCO3 29.4 H ABG O2 Sat (Measured) 97.4 ABG O2 Content 14.1 L ABG Base Excess 3.3 H Bj Test Positive Oxygen Flow Rate Yes Sodium 140 Potassium 4.6 Chloride 106 Carbon Dioxide 33 H Anion Gap 2 L BUN 30 H Creatinine 0.8 Creat Clearance w eGFR > 60 Random Glucose 121 H Calcium 7.7 L Phosphorus 3.6 Magnesium 2.7 H Total Bilirubin 0.2 AST 17 ALT 31 Alkaline Phosphatase 61 Total Protein 4.7 L Albumin 1.8 L Active Medications Generic Name Dose Route Start Last Admin Trade Name Freq PRN Reason Stop Dose Admin Albuterol Sulfate 1 amp 05/19/18 11:35 Ventolin 0.083% Nebulizer Soln - NEB Q4H PRN SHORT OF BREATH/WHEEZING Albuterol/Ipratropium 1 amp 05/19/18 12:00 05/24/18 11:35 Duoneb - NEB 1 amp RQID BRIE Administration Amlodipine Besylate 5 mg 05/20/18 10:00 Norvasc - PO DAILY BRIE Chlorhexidine Gluconate 1 applic 05/19/18 22:00 05/23/18 21:48 Hibiclens For Decolonization - TP 1 applic HS BRIE Administration Enoxaparin Sodium 40 mg 05/21/18 10:00 05/24/18 09:37 Lovenox - SQ 40 mg DAILY BRIE Administration Fentanyl 500 mcg/ Dextrose 100 mls @ 10 mls/hr 05/19/18 14:30 05/24/18 10:26 IVPB 0 mcg/hr TITR BRIE 0 mls/hr Titration Protocol 50 MCG/HR Norepinephrine Bitartrate 8, 500 mls @ 18.75 mls/hr 05/19/18 18:45 05/24/18 10:26 000 mcg/ Dextrose IV 0 mcg/min TITR BRIE 0 mls/hr Titration Protocol 5 MCG/MIN Propofol 1,000,000 mcg in 100 mls @ 3.258 mls/hr 05/22/18 11:45 05/24/18 09: 40 Diprivan - IVPB 0 mcg/kg/min TITR BRIE 0 mls/hr Titration Protocol 10 MCG/KG/MIN Sodium Chloride 1,000 mls @ 50 mls/hr 05/22/18 20:21 05/23/18 21:47 Normal Saline - IV 50 mls/hr ASDIR BRIE Administration Ceftriaxone Sodium 2 gm/ 100 mls @ 200 mls/hr 05/23/18 14:45 05/24/18 09:37 Dextrose IVPB 200 mls/hr DAILY BRIE Administration Protocol Methylprednisolone Sodium Succinate 40 mg 05/23/18 10:00 05/24/18 09:38 Solu-Medrol - IVPUSH 40 mg BID BRIE Administration Mupirocin 1 applic 05/19/18 22:00 05/24/18 09:32 Bactroban Ointment (For Decolonization) - NS 05/24/18 21:59 1 applic BID BRIE Administration Oseltamivir Phosphate 75 mg 05/19/18 22:00 05/24/18 09:50 Tamiflu - GT 05/24/18 21:59 75 mg BID BRIE Administration Pantoprazole Sodium 40 mg 05/19/18 11:45 05/24/18 09:38 Protonix Iv IVPUSH 40 mg DAILY BRIE Administration ASSESSMENT/PLAN: Patient is a 67 year old female with past medical history of COPD with hx of intubation, breast and lung CA, perforated ulcer, HTN, presented with worsening shortness of breath with increased sputum production for a few days. #Acute hypoxic respiratory failure:likely 2/2 COPD exacerbation, bilateral pneumonia: improving -Extubated today. On Bipap -Duonebs RQID, Albuterol q4h PRN -IV Methylprednisolone 60mg BID -ABG, CXR #Septic shock likely 2/2 pneumonia: improving -Titrating down IV Levophed -ID (Dr. Baird) consulted. Recommendations appreciated. -Vanc/Zosyn discontinued -Ceftriaxone 2gm daily -Oseltamivir 75mg BID -Urine pneumococcal antigens positive -Sputum cx: S. pneumoniae, S. aureus #HTN -Hold anti-hypertensives -on Vasopressors #FEN -Not on any standing fluids -Electrolytes wnl, routine bmp monitoring -Tube feed osmolite 05/19 #Prophylaxis -DVT: Lovenox 50 mg sq BID -GI: IV protonix 40mg daily #Disposition -full code -Admit to ICU for closer monitoring Visit type - Emergency Visit Emergency Visit: Yes ED Registration Date: 05/19/18 Care time: The patient presented to the Emergency Department on the above date and was hospitalized for further evaluation of their emergent condition. - New Patient This patient is new to me today: No - Critical Care Critical Care patient: Yes Total Critical Care Time (in minutes): 40 Critical Care Statement: The care of this patient involved high complexity decision making to prevent further life threatening deterioration of the patient 's condition and/or to evaluate & treat vital organ system(s) failure or risk of failure.
[2018-05-24] MEDS ORDERED: ACETYLCYSTEINE 20% 200MG/ML 4 ML VIAL *FOR ORAL / INH USE ONLY NEB ONE (18:12)
[2018-05-24] MEDS ORDERED: ACETYLCYSTEINE 20% 200MG/ML 4 ML VIAL *FOR ORAL / INH USE ONLY ONE (18:15)
[2018-05-24] MEDS ORDERED: methylPREDNISolone NA SUCC 125 MG/2 ML VIAL ONE (18:16)
[2018-05-24] MEDS ORDERED: methylPREDNISolone NA SUCC 125 MG/2 ML VIAL IVPUSH ONE (18:19)
[2018-05-24] MEDS ORDERED: ALBUTEROL SO4 0.083% IH SOL 2.5 MG/3 ML VIAL.NEB. NEB ONE (18:19)
[2018-05-24] MEDS ORDERED: ACETYLCYSTEINE 20% 200MG/ML 30 ML VIAL *FOR ORAL / INH USE ONLY NEB ONE (18:19)
[2018-05-24] MEDS: ALBUTEROL SO4 0.083% IH SOL 2.5 MG/3 ML VIAL.NEB. NEB PRN (18:35)
[2018-05-24] MEDS: FENTANYL INJECTION 500 MCG in DEXTROSE 5%-WATER - 90 ML IVPB SCH (18:39)
[2018-05-24] MEDS: NOREPINEPHRINE BITARTRATE 8,000 MCG in DEXTROSE 5%-WATER - 492 ML IV SCH (20:00)
[2018-05-24] MEDS: ACETYLCYSTEINE 20% 200MG/ML 4 ML VIAL *FOR ORAL / INH USE ONLY NEB SCH (21:00)
[2018-05-24] MEDS: ALBUTEROL SO4 0.083% IH SOL 2.5 MG/3 ML VIAL.NEB. NEB SCH (21:00)
[2018-05-24] MEDS: SODIUM CHLORIDE 1,000 ML IV SCH (21:52)
[2018-05-24] MEDS: CHLORHEXIDINE GLUCONATE 4% CLEANSER FOR DECOLONIZATION TP SCH (21:53)
[2018-05-25] MEDS: ALBUTEROL SO4 0.083% IH SOL 2.5 MG/3 ML VIAL.NEB. NEB PRN (02:45)
[2018-05-25 05:50] LABS: BASO % 0.1 % (0-2.0); EOS % 0.1 % (0-4.5); HEMATOCRIT 33.4 % (32.4-45.2); HEMOGLOBIN 10.5 GM/dL (10.7-15.3); LYMPH % 1.4 % (8-40); MCH 26.3 pg (25.7-33.7); MCHC 31.5 g/dl (32.0-36.0); MEAN CELL VOLUME 83.5 fl (80-96); MEAN PLT VOLUME 9.5 fl (7.5-11.1); MONO % 6.9 % (3.8-10.2); NEUT % 91.5 % (42.8-82.8); PLATELET COUNT 211 K/MM3 (134-434); RDW 15.8 % (11.6-15.6); WHITE BLOOD COUNT 12.2 K/mm3 (4.0-10.0)
[2018-05-25 06:39] LABS: ARTERIAL BLD GAS O2 SATURATION 91.1 % (90-98.9); ARTERIAL BLOOD GAS BASE EXCESS 4.7 meq/l (-2-2); ARTERIAL BLOOD GAS PCO2 53.2 mmHg (35-45); ARTERIAL BLOOD GAS pH 7.38 (7.35-7.45)
[2018-05-25 06:44] LABS: PLATELET ESTIMATE NORMAL
[2018-05-25 06:56] LABS: ALLENS TEST POSITIVE
[2018-05-25 07:23] LABS: ALBUMIN 2.1 g/dl (3.4-5.0); ALK PHOS 56 U/L (45-117); ANION GAP 3 MMOL/L (8-16); BILIRUBIN,TOTAL 0.3 mg/dL (0.2-1); BLOOD UREA NITROGEN 35 mg/dL (7-18); CALCIUM 8.1 mg/dL (8.5-10.1); CHLORIDE 109 mmol/L (98-107); CO2 33 mmol/L (21-32); CREATININE 0.8 mg/dL (0.55-1.3); GLUCOSE,RANDOM 86 mg/dL (74-106); MAGNESIUM 2.7 mg/dL (1.8-2.4); PHOSPHOROUS 3.7 mg/dL (2.5-4.9); POTASSIUM 4.7 mmol/L (3.5-5.1); SGOT/AST 14 U/L (15-37); SGPT/ALT 25 U/L (13-61); SODIUM 144 mmol/L (136-145); TOT PROT 5.1 g/dl (6.4-8.2)
[2018-05-25] MEDS ORDERED: LACTATED RINGERS SOLUTION 1,000 ML/1,000 ML INFUS.BAG IV SCH (07:45)
[2018-05-25] MEDS: ACETYLCYSTEINE 20% 200MG/ML 4 ML VIAL *FOR ORAL / INH USE ONLY NEB SCH ×4 (07:50→21:38)
[2018-05-25] MEDS: ALBUTEROL SO4 0.083% IH SOL 2.5 MG/3 ML VIAL.NEB. NEB SCH ×4 (07:50→21:39)
[2018-05-25] MEDS ORDERED: ACETYLCYSTEINE 20% 200MG/ML 4 ML VIAL *FOR ORAL / INH USE ONLY NEB ONE (08:45)
--- NOTE | 2018-05-25 09:22 | PN ---
Physical Exam: SUBJECTIVE: Patient seen and examined at bedside. Had desaturation last evening , required increased pressure support. Complains of pain with breathing. Having difficulty clearing sputum. OBJECTIVE: Vital Signs Period Temp Pulse Resp BP Sys/Sawyer Pulse Ox Last 24 Hr 97.5 F-99.8 F 86-120 13-22 115-137/74-96 91-100 GENERAL: A&Ox3, NAD HEAD: NC/AT EYES: PERRL ENT: Dry mucous membranes NECK: Trachea midline, no JVD or LAD LUNGS: coarse breathing and wheezing HEART: RRR no m/r/g ABDOMEN: +bs, soft, no pain response to deep palpation EXTREMITIES: 2+ pulses, warm, well-perfused, no edema. NEUROLOGICAL: unable to assess PSYCH: unable to assess SKIN: Warm, dry, normal turgor Laboratory Results - last 24 hr 05/24/18 05/25/18 05/25/18 05:00 05:15 05:15 WBC 12.2 H RBC 4.00 Hgb 10.5 L Hct 33.4 MCV 83.5 MCH 26.3 MCHC 31.5 L RDW 15.8 H Plt Count 211 MPV 9.5 Absolute Neuts (auto) 11.1 H Neutrophils % 91.5 H Neutrophils % (Manual) 89.0 H 97.0 H Band Neutrophils % 0.0 1.0 Lymphocytes % 1.4 L D Lymphocytes % (Manual) 1.0 L 0.0 L Monocytes % 6.9 Monocytes % (Manual) 3 L D 1 L Eosinophils % 0.1 D Eosinophils % (Manual) 0.0 0.0 Basophils % 0.1 Basophils % (Manual) 0.0 0.0 Myelocytes % (Man) 1 D 1 Promyelocytes % (Man) 2 D 0 D Blast Cells % (Manual) 0 0 Nucleated RBC % 0 Metamyelocytes 1 D 0 D Hypochromia 0 Platelet Estimate Normal Normal Polychromasia 0 Poikilocytosis 0 Anisocytosis 0 Microcytosis 0 Macrocytosis 0 Spherocytes 2+ Ovalocytes 2+ Puncture Site ABG pH ABG pCO2 at Pt Temp ABG pO2 at Pt Temp ABG HCO3 ABG O2 Sat (Measured) ABG O2 Content ABG Base Excess Bj Test O2 Delivery Device Oxygen Flow Rate Vent Mode Vent Rate Pressure Support Vent Sodium 144 Potassium 4.7 Chloride 109 H Carbon Dioxide 33 H Anion Gap 3 L BUN 35 H Creatinine 0.8 Creat Clearance w eGFR > 60 Random Glucose 86 Calcium 8.1 L Phosphorus 3.7 Magnesium 2.7 H Total Bilirubin 0.3 AST 14 L ALT 25 Alkaline Phosphatase 56 Total Protein 5.1 L Albumin 2.1 L 05/25/18 06:00 WBC RBC Hgb Hct MCV MCH MCHC RDW Plt Count MPV Absolute Neuts (auto) Neutrophils % Neutrophils % (Manual) Band Neutrophils % Lymphocytes % Lymphocytes % (Manual) Monocytes % Monocytes % (Manual) Eosinophils % Eosinophils % (Manual) Basophils % Basophils % (Manual) Myelocytes % (Man) Promyelocytes % (Man) Blast Cells % (Manual) Nucleated RBC % Metamyelocytes Hypochromia Platelet Estimate Polychromasia Poikilocytosis Anisocytosis Microcytosis Macrocytosis Spherocytes Ovalocytes Puncture Site Left radial ABG pH 7.38 ABG pCO2 at Pt Temp 53.2 H ABG pO2 at Pt Temp 64.0 L D ABG HCO3 30.5 H ABG O2 Sat (Measured) 91.1 ABG O2 Content 15.8 ABG Base Excess 4.7 H Bj Test Positive O2 Delivery Device Bipap Oxygen Flow Rate 50 Vent Mode S/t Vent Rate 12 Pressure Support Vent 14/7 Sodium Potassium Chloride Carbon Dioxide Anion Gap BUN Creatinine Creat Clearance w eGFR Random Glucose Calcium Phosphorus Magnesium Total Bilirubin AST ALT Alkaline Phosphatase Total Protein Albumin Active Medications Generic Name Dose Route Start Last Admin Trade Name Freq PRN Reason Stop Dose Admin Acetylcysteine 400 mg 05/24/18 20:00 05/25/18 07:50 Mucomyst 20 Oral / Inh Use Only* NEB 400 mg RQID [facility] Administration Albuterol Sulfate 1 amp 05/19/18 11:35 05/25/18 02:45 Ventolin 0.083% Nebulizer Soln - NEB 1 amp Q4H PRN Administration SHORT OF BREATH/WHEEZING Albuterol/Ipratropium 1 amp 05/25/18 12:00 Duoneb - NEB RQID BRIE Amlodipine Besylate 5 mg 05/20/18 10:00 Norvasc - PO DAILY BRIE Chlorhexidine Gluconate 1 applic 05/19/18 22:00 05/24/18 21:53 Hibiclens For Decolonization - TP 1 applic HS [facility] Administration Enoxaparin Sodium 40 mg 05/21/18 10:00 05/24/18 09:37 Lovenox - SQ 40 mg DAILY BRIE Administration Fentanyl 500 mcg/ Dextrose 100 mls @ 10 mls/hr 05/19/18 14:30 05/24/18 18:39 IVPB Not Given TITR BRIE Protocol 50 MCG/HR Norepinephrine Bitartrate 8, 500 mls @ 18.75 mls/hr 05/19/18 18:45 05/24/18 20:00 000 mcg/ Dextrose IV Not Given TITR BRIE Protocol 5 MCG/MIN Propofol 1,000,000 mcg in 100 mls @ 3.258 mls/hr 05/22/18 11:45 05/24/18 18: 38 Diprivan - IVPB Not Given TITR BRIE Protocol 10 MCG/KG/MIN Ceftriaxone Sodium 2 gm/ 100 mls @ 200 mls/hr 05/23/18 14:45 05/24/18 09:37 Dextrose IVPB 200 mls/hr DAILY BRIE Administration Protocol Lactated Ringer's 1,000 ml in 1,000 mls @ 50 mls/hr 05/25/18 07:45 Lactated Ringers Solution IV ASDIR [facility] Methylprednisolone Sodium Succinate 40 mg 05/23/18 10:00 05/24/18 21:53 Solu-Medrol - IVPUSH 40 mg BID BRIE Administration Pantoprazole Sodium 40 mg 05/19/18 11:45 05/24/18 09:38 Protonix Iv IVPUSH 40 mg DAILY BRIE Administration ASSESSMENT/PLAN: 67 y/o F w/ PMHx COPD on 2L O2, breast and lung Ca, perforated ulcer, prior intubation, p/w lethargy, SOB, increased WOB, found to have b/l infiltrates on CXR. Decompensated and underwent intubation and RIJ central line placement. In ICU in septic shock w/ acute on chronic respiratory failure 2/2 PNA. #CV -RIJ line placed (day 7), off levophed for one day maintaining MAP, will remove line -poor quality echo, RV systolic pressure elevated #pulmonary -extubated -trial of HFOT, NIPPV as necessary -solumedrol 40 BID -bronchodilators standing and PRN -mucomyst -chest PT -congestion on CXR, giving Lasix -ABG improved -f/u ABG, CXR #ID -ID following -urine pneumococcal antigens positive -sputum culture positive for S pneumo and S aureus -cont Ceftriaxone (day 3, day 6 overall of ABx), further ABx as per ID #FEN -no IVF -monitor and correct electrolytes -soft diet #PPx -DVT: Lovenox subq -GI: IV PTX #code -full #dispo -continue to monitor in ICU Visit type - Emergency Visit Emergency Visit: No - New Patient This patient is new to me today: No - Critical Care Critical Care patient: Yes Total Critical Care Time (in minutes): 40 Critical Care Statement: The care of this patient involved high complexity decision making to prevent further life threatening deterioration of the patient 's condition and/or to evaluate & treat vital organ system(s) failure or risk of failure.
--- NOTE | 2018-05-25 09:38 | PN ---
Progress Note, Physician History of Present Illness: Awake and alert on bipap Slightly tachypneic but breathing non-labored on bipap Low grade temp noted WBC improved Sputum c/s Pneumococcus, MSSA - Current Medication List Current Medications: Active Medications Acetylcysteine (Mucomyst 20 Oral / Inh Use Only*) 400 mg NEB RQID BRIE Last Admin: 05/25/18 07:50 Dose: 400 mg Albuterol Sulfate (Ventolin 0.083% Nebulizer Soln -) 1 amp NEB Q4H PRN PRN Reason: SHORT OF BREATH/WHEEZING Last Admin: 05/25/18 02:45 Dose: 1 amp Albuterol/Ipratropium (Duoneb -) 1 amp NEB RQID BRIE Amlodipine Besylate (Norvasc -) 5 mg PO DAILY [facility] Chlorhexidine Gluconate (Hibiclens For Decolonization -) 1 applic TP HS [facility] Last Admin: 05/24/18 21:53 Dose: 1 applic Enoxaparin Sodium (Lovenox -) 40 mg SQ DAILY [facility] Last Admin: 05/24/18 09:37 Dose: 40 mg Fentanyl 500 mcg/ Dextrose 100 mls @ 10 mls/hr IVPB TITR BRIE; Protocol Last Admin: 05/24/18 18:39 Dose: Not Given Norepinephrine Bitartrate 8, (000 mcg/ Dextrose) 500 mls @ 18.75 mls/hr IV TITR BRIE; Protocol Last Admin: 05/24/18 20:00 Dose: Not Given Propofol (Diprivan -) 1,000,000 mcg in 100 mls @ 3.258 mls/hr IVPB TITR BRIE; Protocol Last Admin: 05/24/18 18:38 Dose: Not Given Ceftriaxone Sodium 2 gm/ (Dextrose) 100 mls @ 200 mls/hr IVPB DAILY BRIE; Protocol Last Admin: 05/24/18 09:37 Dose: 200 mls/hr Lactated Ringer's (Lactated Ringers Solution) 1,000 ml in 1,000 mls @ 50 mls/ hr IV ASDIR [facility] Methylprednisolone Sodium Succinate (Solu-Medrol -) 40 mg IVPUSH BID [facility] Last Admin: 05/24/18 21:53 Dose: 40 mg Pantoprazole Sodium (Protonix Iv) 40 mg IVPUSH DAILY [facility] Last Admin: 05/24/18 09:38 Dose: 40 mg - Objective Vital Signs: Vital Signs Temperature 98 F 05/25/18 06:00 Pulse Rate 86 05/25/18 08:27 Respiratory Rate 22 H 05/25/18 08:00 Blood Pressure 137/96 05/25/18 08:00 O2 Sat by Pulse Oximetry (%) 97 05/25/18 08:27 Constitutional: Yes: No Distress, Thin Eyes: Yes: Conjunctiva Clear Cardiovascular: Yes: Regular Rate and Rhythm, S1, S2 Respiratory: Yes: Diminished Gastrointestinal: Yes: Normal Bowel Sounds, Soft. No: Tenderness Edema: No Labs: CBC, BMP 05/25/18 05:15 05/25/18 05:15 INR, PTT INR 1.25 (0.83-1.09) H 05/19/18 08:18 Assessment/Plan Respiratory failure Pneumococcal pneumonia Leukocytosis- improved Continue ceftriaxone 2gm IVPB q24h
[2018-05-25] MEDS ORDERED: FUROSEMIDE 40 MG/4 ML INJECTABLE VIAL IVPUSH ONE (10:18)
[2018-05-25] MEDS: ENOXAPARIN NA (PORCINE) 40 MG/0.4 ML DISP.SYRIN SQ SCH (10:51)
[2018-05-25] MEDS: methylPREDNISolone NA SUCC 40 MG/1 ML VIAL IVPUSH SCH ×2 (10:51→21:19)
[2018-05-25] MEDS: PANTOPRAZOLE SODIUM 40 MG VIAL IVPUSH SCH (10:51)
--- NOTE | 2018-05-25 11:36 | PN ---
Teaching Attending Note Name of Resident: Dhruv Strong ATTENDING PHYSICIAN STATEMENT I saw and evaluated the patient. I reviewed the resident's note and discussed the case with the resident. I agree with the resident's findings and plan as documented. SUBJECTIVE: Pt seen and examined in the ICU. Remains extubated but on BiPAP. States breathing is better but still with accessory muscle use. OBJECTIVE: Vital Signs Period Temp Pulse Resp BP Sys/Sawyer Pulse Ox Last 24 Hr 97.5 F-99.8 F 84-120 13-24 115-137/72-96 91-100 Intake & Output 05/22/18 05/23/18 05/24/18 05/25/18 23:59 23:59 23:59 23:59 Intake Total 4337.0 3878.6 2079.6 537 Output Total 1750 1900 1710 300 Balance 2587.0 1978.6 369.6 237 Weight 54.3 kg 54.63 kg 55.367 kg 54.913 kg Gen: tachypneic on BiPAP Heart: RRR LUng: distant breath sounds Abd: soft, nontender Ext: no edema CBC, BMP 05/25/18 05:15 05/25/18 05:15 Active Medications Acetylcysteine (Mucomyst 20 Oral / Inh Use Only*) 400 mg NEB RQID [facility] Last Admin: 05/25/18 07:50 Dose: 400 mg Albuterol Sulfate (Ventolin 0.083% Nebulizer Soln -) 1 amp NEB Q4H PRN PRN Reason: SHORT OF BREATH/WHEEZING Last Admin: 05/25/18 02:45 Dose: 1 amp Albuterol/Ipratropium (Duoneb -) 1 amp NEB RQID BRIE Amlodipine Besylate (Norvasc -) 5 mg PO DAILY [facility] Chlorhexidine Gluconate (Hibiclens For Decolonization -) 1 applic TP HS [facility] Last Admin: 05/24/18 21:53 Dose: 1 applic Enoxaparin Sodium (Lovenox -) 40 mg SQ DAILY [facility] Last Admin: 05/25/18 10:51 Dose: 40 mg Fentanyl 500 mcg/ Dextrose 100 mls @ 10 mls/hr IVPB TITR BRIE; Protocol Last Admin: 05/24/18 18:39 Dose: Not Given Norepinephrine Bitartrate 8, (000 mcg/ Dextrose) 500 mls @ 18.75 mls/hr IV TITR BRIE; Protocol Last Admin: 05/24/18 20:00 Dose: Not Given Propofol (Diprivan -) 1,000,000 mcg in 100 mls @ 3.258 mls/hr IVPB TITR BRIE; Protocol Last Admin: 05/24/18 18:38 Dose: Not Given Ceftriaxone Sodium 2 gm/ (Dextrose) 100 mls @ 200 mls/hr IVPB DAILY BRIE; Protocol Last Admin: 05/24/18 09:37 Dose: 200 mls/hr Methylprednisolone Sodium Succinate (Solu-Medrol -) 40 mg IVPUSH BID [facility] Last Admin: 05/25/18 10:51 Dose: 40 mg Pantoprazole Sodium (Protonix Iv) 40 mg IVPUSH DAILY [facility] Last Admin: 05/25/18 10:51 Dose: 40 mg ASSESSMENT AND PLAN: Acute on Chronic Hypoxic and Hypercapneic Respiratory Failure Pneumonia Severe Sepsis improving ARDS resolving Acute COPD Exacerbation Lactic Acidosis resolved h/o Lung Cancer - trial of HFOT - taper Fio2 to keep Spo2 >90% - BiPAP as needed to assist in work of breathing - continue antibiotics - continue medrol - inhaled bronchodilators - DVT/GI prophylaxis - continue ICU monitoring for tenuous respiratory status critical care time spent in reviewing chart, evaluating patient and formulating plan 35 min
[2018-05-25] MEDS ORDERED: ALBUTEROL SO4 2.5/IPRATROPIUM 0.5 INH SOL 3 ML VIAL.NEB. NEB SCH (12:00)
[2018-05-25] MEDS ORDERED: DEXTROSE 5%-WATER 100 ML IVPB ONE (12:26)
[2018-05-25] MEDS: CEFTRIAXONE 2 GM in DEXTROSE 5%-WATER 100 ML IVPB SCH (12:52)
[2018-05-25] MEDS: amLODIPine BESYLATE 5 MG TABLET (FP) PO SCH (12:53)
--- NOTE | 2018-05-25 12:55 | CONSULT ---
Admitting History and Physical - Primary Care Physician PCP: Aura Willis - Admission History of Present Illness: The patient is a 67 year old female with a significant PMH of COPD on 2 L Oxygen at home, h/o of intubation for COPD, HTN, left sided lung Ca, s/p surgery 2013, right breast Ca, s/p radiation in 2009 BIBA for SOB and cough . Intubated 05/19/18 Respiratory failure/Pneumococcal pneumonia Extubated yesterday. Was on Bipap, and today on Hi-Flow. Pt takes deep, deliberate breaths, with rate greater than normal, but reportedly improved. O2 saturation 96. Pt denies h/o dysphagia and has a good appetite premorbidly. Pt tolerated sips of water for nursing. History Source: Patient, Family Member Limitations to Obtaining History: Clinical Condition - Past Medical History [employer]: Yes: Other (aneurysm s/p clipping) Cardiovascular: Yes: HTN Pulmonary: Yes: COPD, Pneumonia, Previously Intubated ...LMP Comment: 51 years old ...: No Heme/Onc: Yes: Cancer (lung and breast) - Smoking History Smoking history: Former smoker (quit about 15 years ago) Have you smoked in the past 12 months: No Aproximately how many cigarettes per day: 0 If you are a former smoker, when did you quit?: 2009 - Alcohol/Substance Use Hx Alcohol Use: No History of Substance Use: reports: None History - Admission Reason For Visit: RESP DISTRESS,RESP FAILURE,COPD,PNEUMONIA - Diagnostics X-ray: Report Reviewed - General Mental Status: Alert and Oriented, Awake and Alert, Able to Follow Commands Attention: Intact Ability to Follow Directions: Good Head/Neck Control: WFL, Good - Hearing Hearing: Normal Hearing Aide: No Speech Evaluation - Communication Primary Language: IRANIAN - Speech Production Intelligibility: Yes: Mildly Impaired - Speech Characteristics Voice Loudness: Mildly Soft/Quiet, Excessive Variation Voice Pitch: Yes: Normal Voice Phonatory-based Quality: Yes: Normal Articulation: Yes: Precise Voice, Other Observations: Yes: Inadequate Breath Support (varies) - Language/Auditory Comprehension Follows: Yes: 1 Stage Simple Commands - Language/Verbal Expression Able to Respond to Simple Queries: Yes: Mildly Impaired Able to Communicate Wants and Needs: Yes: Mildly Impaired Functional Communication Status: Yes: Mildly Impaired - Swallow Evaluation/Bedside Assessment Current Nutritional Intake: NPO Dentition: Yes: Adequate Facial Symmetry at Rest: Symmetrical Facial Symmetry on Retraction: Symmetrical Against Resistance Opening: Normal Against Resistance Closing: Normal Pucker Lips: Normal Smile: Normal Lingual Movement: Normal, Symmetric Lingual Speed of Movement: Normal Lingual Movement Strgth Against Opposition: Normal Lingual Movement Characteristics: Normal Velopharyngeal Movement: Normal Laryngeal Movement: Able to Palpate, Labored,delay initiation Rate of Intake: WFL Bolus Size: Small Labial Seal: WFL Oral Prep Time: WFL A-P Transit: WFL Pocketing: None Coughing/Throat Clear: No Recommendations - Speech Evaluation, Impression/Plan Impression: Discoordination of respiration and with deglution places pt at risk of aspiration, as they are both reciprocal functions. Pt inhales deeply after taking a sip, before swallowing, and again deep inspiration noted immediately after the swallow is completed. Overtly, she seemed to tolerate single sips of water and 1/2 tsps of puree. Risk of aspiration is present, especially if drinking continuously, or through a straw. Pt would fatique with solids and choking risk is present. Vocal quality is euphonic. - Disposition Discharge to: To be Determined - Dysphagia Impressions/Plan Swallowing Skills: Impaired Dysphagia Impressions: Mild Impairment, Moderate Impairment, Risk of Aspiration , Ongoing Evaluation *Silent aspiration: cannot be R/O at bedside Dysphagia Treatment Plan: Small Bites, Chin Tuck/Down, Trial Feedings, Safe Rate , 1/2 tsp. at a time, Elevate HOB during feed, Other (1./2 tsp at a time. single sips,. Monitor tolerance. Feed slowly. Assist with meals.) Recommendations: Modified Barium Swallow (if cough, congestion, throat clearing , fever) - Recommendations Diet Consistency: Dysphagia Pureed Medication Administration: Crushed with applesauce Liquids: Thin Liquids Supplement: Ensure, Magic Cup, Ensure Pudding
--- NOTE | 2018-05-25 16:27 | PN ---
Physical Exam: SUBJECTIVE: Patient seen and examined at bedside this morning. Patient extubated yesterday, currently on bipap. Off pressors and sedation. Patient reports breathing okay but noted to be breathing heavily. Also noted to be coughing out copious sputum. OBJECTIVE: Vital Signs Period Temp Pulse Resp BP Sys/Sawyer Pulse Ox Last 24 Hr 97.5 F-99.9 F 84-120 13-24 115-145/72-96 95-100 GENERAL: Patient is awake, alert, on bipap, +accessory muscle use HEAD: Normal with no signs of trauma. HEENT: PERRLA, dry mucous membranes NECK: soft, supple, trachea midline LUNGS: Coarse breath sounds bilaterally HEART: Regular rate and rhythm, S1, S2 without murmur, rub or gallop. ABDOMEN: Soft, nontender, nondistended, normoactive bowel sounds EXTREMITIES: 2+ pulses, warm, well-perfused, no edema. Laboratory Results - last 24 hr 05/25/18 05/25/18 05/25/18 05:15 05:15 06:00 WBC 12.2 H RBC 4.00 Hgb 10.5 L Hct 33.4 MCV 83.5 MCH 26.3 MCHC 31.5 L RDW 15.8 H Plt Count 211 MPV 9.5 Absolute Neuts (auto) 11.1 H Neutrophils % 91.5 H Neutrophils % (Manual) 97.0 H Band Neutrophils % 1.0 Lymphocytes % 1.4 L D Lymphocytes % (Manual) 0.0 L Monocytes % 6.9 Monocytes % (Manual) 1 L Eosinophils % 0.1 D Eosinophils % (Manual) 0.0 Basophils % 0.1 Basophils % (Manual) 0.0 Myelocytes % (Man) 1 Promyelocytes % (Man) 0 D Blast Cells % (Manual) 0 Nucleated RBC % 0 Metamyelocytes 0 D Platelet Estimate Normal Puncture Site Left radial ABG pH 7.38 ABG pCO2 at Pt Temp 53.2 H ABG pO2 at Pt Temp 64.0 L D ABG HCO3 30.5 H ABG O2 Sat (Measured) 91.1 ABG O2 Content 15.8 ABG Base Excess 4.7 H Bj Test Positive O2 Delivery Device Bipap Oxygen Flow Rate 50 Vent Mode S/t Vent Rate 12 Pressure Support Vent 14/7 Sodium 144 Potassium 4.7 Chloride 109 H Carbon Dioxide 33 H Anion Gap 3 L BUN 35 H Creatinine 0.8 Creat Clearance w eGFR > 60 Random Glucose 86 Calcium 8.1 L Phosphorus 3.7 Magnesium 2.7 H Total Bilirubin 0.3 AST 14 L ALT 25 Alkaline Phosphatase 56 Total Protein 5.1 L Albumin 2.1 L Active Medications Generic Name Dose Route Start Last Admin Trade Name Freq PRN Reason Stop Dose Admin Acetylcysteine 400 mg 05/24/18 20:00 05/25/18 15:21 Mucomyst 20 Oral / Inh Use Only* NEB 400 mg RQID BRIE Administration Albuterol Sulfate 1 amp 05/19/18 11:35 05/25/18 02:45 Ventolin 0.083% Nebulizer Soln - NEB 1 amp Q4H PRN Administration SHORT OF BREATH/WHEEZING Albuterol Sulfate 1 amp 05/25/18 12:00 05/25/18 15:22 Ventolin 0.083% Nebulizer Soln - NEB 1 amp RQID BRIE Administration Amlodipine Besylate 5 mg 05/20/18 10:00 05/25/18 12:53 Norvasc - PO 5 mg DAILY BRIE Administration Chlorhexidine Gluconate 1 applic 05/19/18 22:00 05/24/18 21:53 Hibiclens For Decolonization - TP 1 applic HS BRIE Administration Enoxaparin Sodium 40 mg 05/21/18 10:00 05/25/18 10:51 Lovenox - SQ 40 mg DAILY BREI Administration Fentanyl 500 mcg/ Dextrose 100 mls @ 10 mls/hr 05/19/18 14:30 05/24/18 18:39 IVPB Not Given TITR BRIE Protocol 50 MCG/HR Norepinephrine Bitartrate 8, 500 mls @ 18.75 mls/hr 05/19/18 18:45 05/24/18 20:00 000 mcg/ Dextrose IV Not Given TITR BRIE Protocol 5 MCG/MIN Propofol 1,000,000 mcg in 100 mls @ 3.258 mls/hr 05/22/18 11:45 05/24/18 18: 38 Diprivan - IVPB Not Given TITR BRIE Protocol 10 MCG/KG/MIN Ceftriaxone Sodium 2 gm/ 100 mls @ 200 mls/hr 05/23/18 14:45 05/25/18 12:52 Dextrose IVPB 200 mls/hr DAILY BRIE Administration Protocol Methylprednisolone Sodium Succinate 40 mg 05/23/18 10:00 05/25/18 10:51 Solu-Medrol - IVPUSH 40 mg BID BRIE Administration Pantoprazole Sodium 40 mg 05/19/18 11:45 05/25/18 10:51 Protonix Iv IVPUSH 40 mg DAILY BRIE Administration ASSESSMENT/PLAN: Patient is a 67 year old female with past medical history of COPD with hx of intubation, breast and lung CA, perforated ulcer, HTN, presented with worsening shortness of breath with increased sputum production for a few days. #Acute hypoxic respiratory failure:likely 2/2 COPD exacerbation, bilateral pneumonia: improving -Extubated today. On Bipap -Duonebs RQID, Albuterol q4h PRN -IV Methylprednisolone 60mg BID -ABG, CXR #Septic shock likely 2/2 pneumonia: improving -ID (Dr. Baird) consulted. Recommendations appreciated. -Vanc/Zosyn discontinued -Ceftriaxone 2gm daily -Oseltamivir 75mg BID -Urine pneumococcal antigens positive -Sputum cx: S. pneumoniae, S. aureus #HTN -Hold anti-hypertensives -on Vasopressors #FEN -Not on any standing fluids -Electrolytes wnl, routine bmp monitoring -Tube feed osmolite 05/19 #Prophylaxis -DVT: Lovenox 50 mg sq BID -GI: IV protonix 40mg daily #Disposition -full code -Admit to ICU for closer monitoring Visit type - Emergency Visit Emergency Visit: Yes ED Registration Date: 05/19/18 Care time: The patient presented to the Emergency Department on the above date and was hospitalized for further evaluation of their emergent condition. - New Patient This patient is new to me today: No - Critical Care Critical Care patient: Yes Total Critical Care Time (in minutes): 40 Critical Care Statement: The care of this patient involved high complexity decision making to prevent further life threatening deterioration of the patient 's condition and/or to evaluate & treat vital organ system(s) failure or risk of failure.
[2018-05-25] MEDS: SIMETHICONE 80 MG TAB.CHEW (FP) PO ONE (20:44)
[2018-05-25] MEDS: diphenhydrAMINE HCL 25 MG CAPSULE (FP) PO ONE (20:44)
[2018-05-25] MEDS ORDERED: FAMOTIDINE 20 MG/50 ML IVPB 20 MG/50 ML MG IVPB ONE (20:52)
--- NOTE | 2018-05-25 21:08 | PN ---
Teaching Attending Note Name of Resident: Lore Vega ATTENDING PHYSICIAN STATEMENT I saw and evaluated the patient. I reviewed the resident's note and discussed the case with the resident. I agree with the resident's findings and plan as documented. SUBJECTIVE: patient is extubated today , answers to questions, feels better. on Bipap, at bedside. OBJECTIVE: Vital Signs Temperature 99.9 F H 05/25/18 14:00 Pulse Rate 102 H 05/25/18 18:00 Respiratory Rate 20 05/25/18 18:44 Blood Pressure 143/91 05/25/18 18:00 O2 Sat by Pulse Oximetry (%) 94 L 05/25/18 14:00 GENERAL:lying in bed comfortably , mild distress. HEAD: AT/NC with no signs of trauma. EYES: Pupils equal, round and reactive to light, sclera anicteric, conjunctiva clear. EARS, NOSE, THROAT: on the vent. NECK: Normal range of motion, supple , no JVD. RIJ line LUNGS: extubated . on bipap today tolerating it, decreased breath sounds bl, positive for rhonchi bilaterally . HEART: Regular rate and rhythm, normal S1 and S2 without murmur, rub or gallop. ABDOMEN: Soft, nontender, not distended, normoactive bowel sounds, no guarding. EXTREMITIES: 2+ pulses, no peripheral edema. NEUROLOGICAL: cn 2-12 grosly intact SKIN: Warm, dry, normal turgor, no rashes appreciated. CBCD WBC 12.2 K/mm3 (4.0-10.0) H 05/25/18 05:15 RBC 4.00 M/mm3 (3.60-5.2) 05/25/18 05:15 Hgb 10.5 GM/dL (10.7-15.3) L 05/25/18 05:15 Hct 33.4 % (32.4-45.2) 05/25/18 05:15 MCV 83.5 fl (80-96) 05/25/18 05:15 MCHC 31.5 g/dl (32.0-36.0) L 05/25/18 05:15 RDW 15.8 % (11.6-15.6) H 05/25/18 05:15 Plt Count 211 K/MM3 (134-434) 05/25/18 05:15 MPV 9.5 fl (7.5-11.1) 05/25/18 05:15 CMP Sodium 144 mmol/L (136-145) 05/25/18 05:15 Potassium 4.7 mmol/L (3.5-5.1) 05/25/18 05:15 Chloride 109 mmol/L (98-107) H 05/25/18 05:15 Carbon Dioxide 33 mmol/L (21-32) H 05/25/18 05:15 Anion Gap 3 MMOL/L (8-16) L 05/25/18 05:15 BUN 35 mg/dL (7-18) H 05/25/18 05:15 Creatinine 0.8 mg/dL (0.55-1.3) 05/25/18 05:15 Creat Clearance w eGFR > 60 (>60) 05/25/18 05:15 Random Glucose 86 mg/dL (74-106) 05/25/18 05:15 Calcium 8.1 mg/dL (8.5-10.1) L 05/25/18 05:15 Total Bilirubin 0.3 mg/dL (0.2-1) 05/25/18 05:15 AST 14 U/L (15-37) L 05/25/18 05:15 ALT 25 U/L (13-61) 05/25/18 05:15 Alkaline Phosphatase 56 U/L (45-117) 05/25/18 05:15 Total Protein 5.1 g/dl (6.4-8.2) L 05/25/18 05:15 Albumin 2.1 g/dl (3.4-5.0) L 05/25/18 05:15 CARDIAC ENZYMES Troponin I < 0.02 ng/ml (0.00-0.05) 05/19/18 08:18 Current Medications Generic Name Dose Route Start Last Admin Trade Name Freq PRN Reason Stop Dose Admin Acetylcysteine 400 mg 05/24/18 20:00 05/25/18 15:21 Mucomyst 20 Oral / Inh Use Only* NEB 400 mg RQID BRIE Administration Albuterol Sulfate 1 amp 05/19/18 11:35 05/25/18 02:45 Ventolin 0.083% Nebulizer Soln - NEB 1 amp Q4H PRN Administration SHORT OF BREATH/WHEEZING Albuterol Sulfate 1 amp 05/25/18 12:00 05/25/18 15:22 Ventolin 0.083% Nebulizer Soln - NEB 1 amp RQID BRIE Administration Amlodipine Besylate 5 mg 05/20/18 10:00 05/25/18 12:53 Norvasc - PO 5 mg DAILY BRIE Administration Chlorhexidine Gluconate 1 applic 05/19/18 22:00 05/24/18 21:53 Hibiclens For Decolonization - TP 1 applic HS BRIE Administration Enoxaparin Sodium 40 mg 05/21/18 10:00 05/25/18 10:51 Lovenox - SQ 40 mg DAILY BRIE Administration Ceftriaxone Sodium 2 gm/ 100 mls @ 200 mls/hr 05/23/18 14:45 05/25/18 12:52 Dextrose IVPB 200 mls/hr DAILY BRIE Administration Protocol Famotidine/Sodium Chloride 20 mg in 50 mls @ 100 mls/hr 05/25/18 20:52 Pepcid 20 Mg Premixed Ivpb - IVPB 05/25/18 21:21 ONCE ONE Methylprednisolone Sodium Succinate 40 mg 05/23/18 10:00 05/25/18 10:51 Solu-Medrol - IVPUSH 40 mg BID BRIE Administration Pantoprazole Sodium 40 mg 05/19/18 11:45 05/25/18 10:51 Protonix Iv IVPUSH 40 mg DAILY BRIE Administration Home Medications Medication Instructions Recorded Salmeterol/Fluticasone [Advair 1 inh PO BID 03/16/12 250Mcg/50Mcg] Albuterol 0.083% Nebulizer Bhavana 1 amp NEB PRN PRN 05/19/18 [Ventolin 0.083% Nebulizer Soln -] Amlodipine Besylate [Norvasc -] 5 mg PO DAILY 05/19/18 ASSESSMENT AND PLAN: 05/19/18 08:18 Blood - Peripheral Venous Blood Culture - Final NO GROWTH AFTER 5 DAYS INCUBATION 05/19/18 08:18 Blood - Peripheral Venous Blood Culture - Final NO GROWTH AFTER 5 DAYS INCUBATION 05/19/18 15:09 Sputum - Endotrachea Suction/Ventilator Gram Stain - Final 05/19/18 15:09 Sputum - Endotrachea Suction/Ventilator Sputum Culture - Final Streptococcus Pneumoniae Staphylococcus Aureus 05/19/18 09:00 Nasopharyngeal Aspirate Respiratory Virus (PCR) - Preliminary 05/19/18 15:09 Urine - Urine - Catheterized Legionella Antigen - Final 05/19/18 15:09 Urine - Urine - Catheterized Streptococcus pneumoniae Antigen (M - Final 05/19/18 08:30 Urine - Urine Clean Catch Urine Culture - Final NO GROWTH OBTAINED ASSESSMENT AND PLAN: The patient is a 67 year old female with a significant PMHx of COPD on 2 L home Oxygen at home with previous hx of intubation, HTN, left sided lung Ca and right sided breast cancer s/p Rtx , presented with SOB and cough x few days. patient was placed on Bipap in ED, and admitted to icu for further care. # Acute hypoxic hypercapnic respiratory failures/p extubation today due to Pneumonia / COPD exacerbation on IV antibiotics switched to Rocephin 2gm also completed Tamiflu as per ID continue. off the pressors now, continue to monitor in icu # Acute COPD exacerbation s/p extubation now, on Bipap continue Duonebs, solu- medrol IV, continue current management. # Acute pneumonia growing strept pneumonia, with left sided effusion: s/p iV antibiotics Zosyn/vancomycin , and now on rocephin as per ID. urinary antigen for strept. pneumo positive and negative for legionella. sensitive to Rocephin. #HTN: Norvasc 5 mg DVT PPX:Heparin sq GI Px: Protonix ICU
[2018-05-25] MEDS: CHLORHEXIDINE GLUCONATE 4% CLEANSER FOR DECOLONIZATION TP SCH (21:20)
[2018-05-25] MEDS ORDERED: MAG HYDROX/AL HYDROX/SIMETH 30 ML UNIT-DOSE CUP PO ONE (23:30)
[2018-05-26 06:17] LABS: ARTERIAL BLD GAS O2 SATURATION 91.4 % (90-98.9); ARTERIAL BLOOD GAS BASE EXCESS 6.8 meq/l (-2-2); ARTERIAL BLOOD GAS PCO2 62.1 mmHg (35-45); ARTERIAL BLOOD GAS PO2 68.3 mmHg (80-100); ARTERIAL BLOOD GAS pH 7.35 (7.35-7.45)
[2018-05-26 06:30] LABS: BASO % 0.3 % (0-2.0); EOS % 1.5 % (0-4.5); HEMATOCRIT 37.5 % (32.4-45.2); HEMOGLOBIN 11.6 GM/dL (10.7-15.3); LYMPH % 1.6 % (8-40); MCHC 30.9 g/dl (32.0-36.0); MEAN CELL VOLUME 84.2 fl (80-96); MEAN PLT VOLUME 9.1 fl (7.5-11.1); MONO % 4.9 % (3.8-10.2); NEUT % 91.7 % (42.8-82.8); PLATELET COUNT 237 K/MM3 (134-434); RBC 4.46 M/mm3 (3.60-5.2); RDW 15.5 % (11.6-15.6); WHITE BLOOD COUNT 15.2 K/mm3 (4.0-10.0)
[2018-05-26 07:00] LABS: ALLENS TEST POSITIVE
[2018-05-26 07:16] LABS: ANION GAP 4 MMOL/L (8-16); BLOOD UREA NITROGEN 44 mg/dL (7-18); CALCIUM 8.9 mg/dL (8.5-10.1); CHLORIDE 106 mmol/L (98-107); CO2 35 mmol/L (21-32); CREATININE 0.8 mg/dL (0.55-1.3); GLUCOSE,RANDOM 89 mg/dL (74-106); MAGNESIUM 2.8 mg/dL (1.8-2.4); PHOSPHOROUS 4.3 mg/dL (2.5-4.9); POTASSIUM 4.7 mmol/L (3.5-5.1); SODIUM 145 mmol/L (136-145)
[2018-05-26] MEDS: SIMETHICONE 80 MG TAB.CHEW (FP) PO ONE (07:20)
[2018-05-26] MEDS: diphenhydrAMINE HCL 25 MG CAPSULE (FP) PO ONE (07:20)
[2018-05-26] MEDS: ACETYLCYSTEINE 20% 200MG/ML 4 ML VIAL *FOR ORAL / INH USE ONLY NEB SCH ×4 (08:38→21:00)
[2018-05-26] MEDS: ALBUTEROL SO4 0.083% IH SOL 2.5 MG/3 ML VIAL.NEB. NEB SCH ×4 (08:38→21:00)
[2018-05-26] MEDS ORDERED: DEXTROSE 5%-WATER 100 ML IVPB ONE (10:24)
[2018-05-26] MEDS: methylPREDNISolone NA SUCC 40 MG/1 ML VIAL IVPUSH SCH ×2 (10:28→21:53)
[2018-05-26] MEDS: ENOXAPARIN NA (PORCINE) 40 MG/0.4 ML DISP.SYRIN SQ SCH (10:28)
[2018-05-26] MEDS: amLODIPine BESYLATE 5 MG TABLET (FP) PO SCH (10:28)
[2018-05-26] MEDS: PANTOPRAZOLE SODIUM 40 MG VIAL IVPUSH SCH (10:29)
[2018-05-26] MEDS: CEFTRIAXONE 2 GM in DEXTROSE 5%-WATER 100 ML IVPB SCH (10:29)
--- NOTE | 2018-05-26 11:59 | PN ---
Teaching Attending Note Name of Resident: Dhruv Strong ATTENDING PHYSICIAN STATEMENT I saw and evaluated the patient. I reviewed the resident's note and discussed the case with the resident. I agree with the resident's findings and plan as documented. SUBJECTIVE: Pt seen and examined in the ICU. Breathing slowly improving. Remains on HFOT 50L /min, 50% FiO2. OBJECTIVE: Vital Signs Period Temp Pulse Resp BP Sys/Sawyer Pulse Ox Last 24 Hr 98.6 F-100 F 86-119 13-22 126-157/82-112 94-95 Intake & Output 05/23/18 05/24/18 05/25/18 05/26/18 23:59 23:59 23:59 23:59 Intake Total 3878.6 2079.6 617 50 Output Total 1900 1710 2100 900 Balance 1978.6 369.6 -1483 -850 Weight 54.63 kg 55.367 kg 54.913 kg 53.155 kg Gen: less tachypneic but still some accessory muscle use Heart: RRR Lung: distant breath sounds Abd: soft, nontender Ext: no edema CBC, BMP 05/26/18 05:30 05/26/18 05:30 Active Medications Acetylcysteine (Mucomyst 20 Oral / Inh Use Only*) 400 mg NEB RQID [facility] Last Admin: 05/26/18 08:38 Dose: 400 mg Albuterol Sulfate (Ventolin 0.083% Nebulizer Soln -) 1 amp NEB Q4H PRN PRN Reason: SHORT OF BREATH/WHEEZING Last Admin: 05/25/18 02:45 Dose: 1 amp Albuterol Sulfate (Ventolin 0.083% Nebulizer Soln -) 1 amp NEB RQID BRIE Last Admin: 05/26/18 08:38 Dose: 1 amp Amlodipine Besylate (Norvasc -) 5 mg PO DAILY [facility] Last Admin: 05/26/18 10:28 Dose: 5 mg Chlorhexidine Gluconate (Hibiclens For Decolonization -) 1 applic TP HS [facility] Last Admin: 05/25/18 21:20 Dose: 1 applic Enoxaparin Sodium (Lovenox -) 40 mg SQ DAILY [facility] Last Admin: 05/26/18 10:28 Dose: 40 mg Ceftriaxone Sodium 2 gm/ (Dextrose) 100 mls @ 200 mls/hr IVPB DAILY [facility]; Protocol Last Admin: 05/26/18 10:29 Dose: 200 mls/hr Methylprednisolone Sodium Succinate (Solu-Medrol -) 40 mg IVPUSH BID [facility] Last Admin: 05/26/18 10:28 Dose: 40 mg Pantoprazole Sodium (Protonix Iv) 40 mg IVPUSH DAILY [facility] Last Admin: 05/26/18 10:29 Dose: 40 mg ASSESSMENT AND PLAN: Acute on Chronic Hypoxic and Hypercapneic Respiratory Failure Pneumonia Severe Sepsis improving ARDS resolving Acute COPD Exacerbation Lactic Acidosis resolved h/o Lung Cancer - taper flow rate, Fio2 to keep Spo2 >90% - BiPAP as needed to assist in work of breathing - continue antibiotics - continue medrol at current dose - inhaled bronchodilators - DVT/GI prophylaxis - continue ICU monitoring for tenuous respiratory status critical care time spent in reviewing chart, evaluating patient and formulating plan 35 min
[2018-05-26 12:18] LABS: ANISOCYTOSIS 1+; MACROCYTOSIS 1+; PLATELET ESTIMATE NORMAL
--- NOTE | 2018-05-26 13:43 | PN ---
Physical Exam: SUBJECTIVE: Patient seen and examined at bedside. Successfully transitioned to HFOT yesterday, maintainig saturation with less labored breathing. No overnight events, no acute complaints. Remains anxious. OBJECTIVE: Vital Signs Period Temp Pulse Resp BP Sys/Sawyer Pulse Ox Last 24 Hr 98.6 F-100 F 86-119 13-22 129-157/89-112 94-95 GENERAL: A&Ox3, NAD HEAD: NC/AT EYES: PERRLA, EOMI ENT: MMM NECK: Trachea midline, no JVD or LAD LUNGS: reduced wheezing/crackles, limited inspiratory effort HEART: RRR no m/r/g ABDOMEN: +bs, soft, NT, ND EXTREMITIES: 2+ pulses, warm, well-perfused, no edema. 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 deficit PSYCH: normal mood and affect SKIN: Warm, dry, normal turgor Laboratory Results - last 24 hr 05/26/18 05/26/18 05/26/18 05:30 05:30 05:55 WBC 15.2 H RBC 4.46 Hgb 11.6 Hct 37.5 MCV 84.2 MCH 26.0 MCHC 30.9 L RDW 15.5 Plt Count 237 MPV 9.1 Absolute Neuts (auto) 13.9 H Neutrophils % 91.7 H Neutrophils % (Manual) 86.6 H Band Neutrophils % 2.1 Lymphocytes % 1.6 L Lymphocytes % (Manual) 1.0 L D Monocytes % 4.9 Monocytes % (Manual) 4 D Eosinophils % 1.5 D Eosinophils % (Manual) 0.0 Basophils % 0.3 Basophils % (Manual) 0.0 Myelocytes % (Man) 1 Promyelocytes % (Man) 0 Blast Cells % (Manual) 0 Nucleated RBC % 0 Metamyelocytes 3 H D Hypochromia 0 Platelet Estimate Normal Polychromasia 1+ Poikilocytosis 0 Anisocytosis 1+ Microcytosis 0 Macrocytosis 1+ Puncture Site Left brachial ABG pH 7.35 ABG pCO2 at Pt Temp 62.1 H* ABG pO2 at Pt Temp 68.3 L ABG HCO3 33.8 H ABG O2 Sat (Measured) 91.4 ABG O2 Content 15.5 ABG Base Excess 6.8 H Bj Test Positive O2 Delivery Device High flow n/c Oxygen Flow Rate 50% Sodium 145 Potassium 4.7 Chloride 106 Carbon Dioxide 35 H Anion Gap 4 L BUN 44 H Creatinine 0.8 Creat Clearance w eGFR > 60 Random Glucose 89 Calcium 8.9 Phosphorus 4.3 Magnesium 2.8 H Active Medications Generic Name Dose Route Start Last Admin Trade Name Freq PRN Reason Stop Dose Admin Acetylcysteine 400 mg 05/24/18 20:00 05/26/18 11:30 Mucomyst 20 Oral / Inh Use Only* NEB 400 mg RQID BRIE Administration Albuterol Sulfate 1 amp 05/19/18 11:35 05/25/18 02:45 Ventolin 0.083% Nebulizer Soln - NEB 1 amp Q4H PRN Administration SHORT OF BREATH/WHEEZING Albuterol Sulfate 1 amp 05/25/18 12:00 05/26/18 11:30 Ventolin 0.083% Nebulizer Soln - NEB 1 amp RQID BRIE Administration Amlodipine Besylate 5 mg 05/20/18 10:00 05/26/18 10:28 Norvasc - PO 5 mg DAILY BRIE Administration Chlorhexidine Gluconate 1 applic 05/19/18 22:00 05/25/18 21:20 Hibiclens For Decolonization - TP 1 applic HS BRIE Administration Enoxaparin Sodium 40 mg 05/21/18 10:00 05/26/18 10:28 Lovenox - SQ 40 mg DAILY BRIE Administration Ceftriaxone Sodium 2 gm/ 100 mls @ 200 mls/hr 05/23/18 14:45 05/26/18 10:29 Dextrose IVPB 200 mls/hr DAILY BRIE Administration Protocol Methylprednisolone Sodium Succinate 40 mg 05/23/18 10:00 05/26/18 10:28 Solu-Medrol - IVPUSH 40 mg BID BRIE Administration Pantoprazole Sodium 40 mg 05/19/18 11:45 05/26/18 10:29 Protonix Iv IVPUSH 40 mg DAILY BRIE Administration ASSESSMENT/PLAN: 67 y/o F w/ PMHx COPD on 2L O2, breast and lung Ca, perforated ulcer, prior intubation, p/w lethargy, SOB, increased WOB, found to have b/l infiltrates on CXR. Decompensated and underwent intubation and RIJ central line placement. In ICU in septic shock w/ acute on chronic respiratory failure 2/2 PNA. #pulmonary -cont HFOT taper flow, NIPPV as necessary -solumedrol 40 BID -bronchodilators standing and PRN -mucomyst -chest PT -congestion on CXR, giving Lasix -ABG improved -f/u ABG, CXR #CV -maintaining MAP off pressors, central line removed yesterday #ID -ID following -urine pneumococcal antigens positive -sputum culture positive for S pneumo and S aureus -cont Ceftriaxone (day 4, day 7 overall of ABx), further ABx as per ID #functional -PT consulted -OOB w/ PT #FEN -no IVF -monitor and correct electrolytes -dysphagia puree w/ thin liquids #PPx -DVT: Lovenox subq -GI: IV PTX #code -full #dispo -continue to monitor in ICU Visit type - Emergency Visit Emergency Visit: No - New Patient This patient is new to me today: No - Critical Care Critical Care patient: Yes Total Critical Care Time (in minutes): 40 Critical Care Statement: The care of this patient involved high complexity decision making to prevent further life threatening deterioration of the patient 's condition and/or to evaluate & treat vital organ system(s) failure or risk of failure.
--- NOTE | 2018-05-26 14:51 | PN ---
Teaching Attending Note Name of Resident: Lore Vega ATTENDING PHYSICIAN STATEMENT I saw and evaluated the patient. I reviewed the resident's note and discussed the case with the resident. I agree with the resident's findings and plan as documented. SUBJECTIVE: feels chelsey , no SOB, no CP . No events over night OBJECTIVE: NAD CV : RRR2/6 SM at LUSB. lungs: bibasilar crackles. EXt : no edema ABd: soft, NT, ND , NL BS ASSESSMENT AND PLAN: 67 y/o lady with h/o COPD , on home O2, HTn, lung cancer , and breast cancer, who presented with SOB and was found tohave acute hypoxic hypercapnic resp failure 1- Acute hypoxic hypercapnic resp failure due to COPD exacerbation and PNA . s/ p extubation - cont O2 supplementation - breathing treatments - treat PNA - add symbicort - cont steroids 2- severe sepsis due to Strep PNA : cxray reviewed. - had fever today - cont ceftriaxone - if recurrent high grade fever , will culture 3- HTN: cont norvasc 4- DVT PX : lovenox GI px : PPI Critical Care Total Critical Care Time (in minutes): 35 Critical Care Statement: The care of this patient involved high complexity decision making to prevent further life threatening deterioration of the patient 's condition and/or to evaluate & treat vital organ system(s) failure or risk of failure.
--- NOTE | 2018-05-26 15:36 | PN ---
Progress Note, PREPLEATER - Note Progress Note: Selected Entries 05/25/18 05/25/18 05/25/18 02:00 06:00 10:00 Breakfast Lunch Temperature 97.5 F L 98 F 97.9 F 05/25/18 05/25/18 05/26/18 14:00 22:00 02:00 Breakfast Lunch Temperature 99.9 F H 98.6 F 100 F H 05/26/18 05/26/18 05/26/18 06:00 09:24 10:00 Breakfast 25% Lunch Temperature 99.8 F H 98.9 F 05/26/18 05/26/18 14:00 14:38 Breakfast Lunch 50% Temperature 100.0 F H Laboratory Tests 05/24/18 05/25/18 05/26/18 05:00 05:15 05:30 WBC 15.0 H 12.2 H 15.2 H Pt reports to be tolerating diet, wants oatmeal and fish. No supplements provided as pt wants lactose free. Pt on high zaid, pressure down. Less SOB and respiration less labored. Pt looks comfortable. Pt denies difficulty swallowing puree/thin liquids. Swallowing reassessed with significant improvement in coordination of deglutition/respiration. Suggest trial of soft/chopped foods. Allow fish/oatmeal. Dairy/Soy free.Consider Ensure Clear.
--- NOTE | 2018-05-26 18:45 | PN ---
Physical Exam: SUBJECTIVE: Patient seen and examined at bedside this morning. Patient on high flow oxygen. Eating breakfast. PAtient still reports cough but with less sputum production. She denies fever, chills, headache, dizziness, nausea, vomiting, chest pain, palpitations, abdominal pain, diarrhea, urinary symptoms. OBJECTIVE: Vital Signs Period Temp Pulse Resp BP Sys/Sawyer Pulse Ox Last 24 Hr 98.6 F-100.0 F 86-119 14-22 129-157/90-112 94-95 GENERAL: Patient is awake, alert, on high flow NC, +accessory muscle use HEAD: Normal with no signs of trauma. HEENT: PERRLA, dry mucous membranes NECK: soft, supple, trachea midline LUNGS: +crackles, bilateral bases HEART: Regular rate and rhythm, S1, S2 without murmur, rub or gallop. ABDOMEN: Soft, nontender, nondistended, normoactive bowel sounds EXTREMITIES: 2+ pulses, warm, well-perfused, no edema. Laboratory Results - last 24 hr 05/22/18 05/26/18 05/26/18 21:58 05:30 05:30 WBC 15.2 H RBC 4.46 Hgb 11.6 Hct 37.5 MCV 84.2 MCH 26.0 MCHC 30.9 L RDW 15.5 Plt Count 237 MPV 9.1 Absolute Neuts (auto) 13.9 H Neutrophils % 91.7 H Neutrophils % (Manual) 86.6 H Band Neutrophils % 2.1 Lymphocytes % 1.6 L Lymphocytes % (Manual) 1.0 L D Monocytes % 4.9 Monocytes % (Manual) 4 D Eosinophils % 1.5 D Eosinophils % (Manual) 0.0 Basophils % 0.3 Basophils % (Manual) 0.0 Myelocytes % (Man) 1 Promyelocytes % (Man) 0 Blast Cells % (Manual) 0 Nucleated RBC % 0 Metamyelocytes 3 H D Hypochromia 0 Platelet Estimate Normal Polychromasia 1+ Poikilocytosis 0 Anisocytosis 1+ Microcytosis 0 Macrocytosis 1+ Puncture Site ABG pH ABG pCO2 at Pt Temp ABG pO2 at Pt Temp ABG HCO3 ABG O2 Sat (Measured) ABG O2 Content ABG Base Excess Bj Test O2 Delivery Device Oxygen Flow Rate Sodium 145 Potassium 4.7 Chloride 106 Carbon Dioxide 35 H Anion Gap 4 L BUN 44 H Creatinine 0.8 Creat Clearance w eGFR > 60 POC Glucometer 138.85183 Random Glucose 89 Calcium 8.9 Phosphorus 4.3 Magnesium 2.8 H 05/26/18 05/26/18 05:55 06:01 WBC RBC Hgb Hct MCV MCH MCHC RDW Plt Count MPV Absolute Neuts (auto) Neutrophils % Neutrophils % (Manual) Band Neutrophils % Lymphocytes % Lymphocytes % (Manual) Monocytes % Monocytes % (Manual) Eosinophils % Eosinophils % (Manual) Basophils % Basophils % (Manual) Myelocytes % (Man) Promyelocytes % (Man) Blast Cells % (Manual) Nucleated RBC % Metamyelocytes Hypochromia Platelet Estimate Polychromasia Poikilocytosis Anisocytosis Microcytosis Macrocytosis Puncture Site Left brachial ABG pH 7.35 ABG pCO2 at Pt Temp 62.1 H* ABG pO2 at Pt Temp 68.3 L ABG HCO3 33.8 H ABG O2 Sat (Measured) 91.4 ABG O2 Content 15.5 ABG Base Excess 6.8 H Bj Test Positive O2 Delivery Device High flow n/c Oxygen Flow Rate 50% Sodium Potassium Chloride Carbon Dioxide Anion Gap BUN Creatinine Creat Clearance w eGFR POC Glucometer 123.61296 Random Glucose Calcium Phosphorus Magnesium Active Medications Generic Name Dose Route Start Last Admin Trade Name Freq PRN Reason Stop Dose Admin Acetylcysteine 400 mg 05/24/18 20:00 05/26/18 16:43 Mucomyst 20 Oral / Inh Use Only* NEB 400 mg RQID BRIE Administration Albuterol Sulfate 1 amp 05/19/18 11:35 05/25/18 02:45 Ventolin 0.083% Nebulizer Soln - NEB 1 amp Q4H PRN Administration SHORT OF BREATH/WHEEZING Albuterol Sulfate 1 amp 05/25/18 12:00 05/26/18 16:44 Ventolin 0.083% Nebulizer Soln - NEB 1 amp RQID BRIE Administration Amlodipine Besylate 5 mg 05/20/18 10:00 05/26/18 10:28 Norvasc - PO 5 mg DAILY BRIE Administration Budesonide/Formoterol Fumarate 2 puff 05/26/18 22:00 Symbicort 160/4.5mcg - IH BID BRIE Chlorhexidine Gluconate 1 applic 05/19/18 22:00 05/25/18 21:20 Hibiclens For Decolonization - TP 1 applic HS BRIE Administration Enoxaparin Sodium 40 mg 05/21/18 10:00 05/26/18 10:28 Lovenox - SQ 40 mg DAILY BRIE Administration Ceftriaxone Sodium 2 gm/ 100 mls @ 200 mls/hr 05/23/18 14:45 05/26/18 10:29 Dextrose IVPB 200 mls/hr DAILY BRIE Administration Protocol Methylprednisolone Sodium Succinate 40 mg 05/23/18 10:00 05/26/18 10:28 Solu-Medrol - IVPUSH 40 mg BID BRIE Administration Pantoprazole Sodium 40 mg 05/19/18 11:45 05/26/18 10:29 Protonix Iv IVPUSH 40 mg DAILY BRIE Administration ASSESSMENT/PLAN: Patient is a 67 year old female with past medical history of COPD with hx of intubation, breast and lung CA, perforated ulcer, HTN, presented with worsening shortness of breath with increased sputum production for a few days. #Acute hypoxic respiratory failure:likely 2/2 COPD exacerbation, bilateral pneumonia: improving -s/p extubation. On high flow NC -Duonebs RQID, Albuterol q4h PRN -Mucomyst -IV Methylprednisolone 60mg BID --> 40mg BID -Resume home Symbicort -ABG, CXR #Septic shock likely 2/2 pneumonia: improving -ID consulted. Recommendations appreciated. -Vanc/Zosyn discontinued -Oseltamivir 75mg BID discontinued. -Ceftriaxone 2gm daily day 4 -Urine pneumococcal antigens positive -Sputum cx: S. pneumoniae, S. aureus #HTN -Continue home Amlodipine 5mg daily -Will continue to monitor BP #FEN -Not on any standing fluids -Electrolytes wnl, routine bmp monitoring -Dysphagia puree diet #Prophylaxis -DVT: Lovenox 40mg sq daily -GI: IV protonix 40mg daily #Disposition -full code -Admit to ICU for closer monitoring Visit type - Emergency Visit Emergency Visit: Yes ED Registration Date: 05/19/18 Care time: The patient presented to the Emergency Department on the above date and was hospitalized for further evaluation of their emergent condition. - New Patient This patient is new to me today: No - Critical Care Critical Care patient: Yes Total Critical Care Time (in minutes): 40 Critical Care Statement: The care of this patient involved high complexity decision making to prevent further life threatening deterioration of the patient 's condition and/or to evaluate & treat vital organ system(s) failure or risk of failure.
--- NOTE | 2018-05-26 19:40 | PN ---
Progress Note, Physician History of Present Illness: Awake and alert on high flow O2 Slightly tachypneic but breathing non-labored Low grade temp noted + leukocytosis Sputum c/s Pneumococcus, MSSA - Current Medication List Current Medications: Active Medications Acetylcysteine (Mucomyst 20 Oral / Inh Use Only*) 400 mg NEB RQID [facility] Last Admin: 05/26/18 16:43 Dose: 400 mg Albuterol Sulfate (Ventolin 0.083% Nebulizer Soln -) 1 amp NEB Q4H PRN PRN Reason: SHORT OF BREATH/WHEEZING Last Admin: 05/25/18 02:45 Dose: 1 amp Albuterol Sulfate (Ventolin 0.083% Nebulizer Soln -) 1 amp NEB RQID [facility] Last Admin: 05/26/18 16:44 Dose: 1 amp Amlodipine Besylate (Norvasc -) 5 mg PO DAILY [facility] Last Admin: 05/26/18 10:28 Dose: 5 mg Budesonide/Formoterol Fumarate (Symbicort 160/4.5mcg -) 2 puff IH BID [facility] Chlorhexidine Gluconate (Hibiclens For Decolonization -) 1 applic TP HS [facility] Last Admin: 05/25/18 21:20 Dose: 1 applic Enoxaparin Sodium (Lovenox -) 40 mg SQ DAILY [facility] Last Admin: 05/26/18 10:28 Dose: 40 mg Ceftriaxone Sodium 2 gm/ (Dextrose) 100 mls @ 200 mls/hr IVPB DAILY [facility]; Protocol Last Admin: 05/26/18 10:29 Dose: 200 mls/hr Methylprednisolone Sodium Succinate (Solu-Medrol -) 40 mg IVPUSH BID [facility] Last Admin: 05/26/18 10:28 Dose: 40 mg Pantoprazole Sodium (Protonix Iv) 40 mg IVPUSH DAILY [facility] Last Admin: 05/26/18 10:29 Dose: 40 mg - Objective Vital Signs: Vital Signs Temperature 100.0 F H 05/26/18 14:00 Pulse Rate 111 H 05/26/18 18:00 Respiratory Rate 20 05/26/18 18:00 Blood Pressure 154/97 05/26/18 18:00 O2 Sat by Pulse Oximetry (%) 95 05/26/18 09:11 Constitutional: Yes: No Distress Cardiovascular: Yes: Regular Rate and Rhythm, S1, S2 Respiratory: Yes: Diminished Gastrointestinal: Yes: Normal Bowel Sounds, Soft Edema: No Labs: CBC, BMP 05/26/18 05:30 05/26/18 05:30 INR, PTT INR 1.25 (0.83-1.09) H 05/19/18 08:18 Assessment/Plan Respiratory failure Pneumococcal pneumonia Leukocytosis- improved Continue ceftriaxone 2gm IVPB q24h
--- NOTE | 2018-05-26 21:26 | PN ---
Progress Note (short form) - Note Progress Note: Informed by RN that patient's hypertensive and tachycardic. Rhythm strip shows sinus tachycardia. Patient appears in moderate respiratory distress on high flow , with accessory muscle use. Pt's sinus tach is likely due to hypoxia. Will BiPAP the patient to decrease the work of breathing. Loyd Richards PGY3 ICU resident
[2018-05-26] MEDS: CHLORHEXIDINE GLUCONATE 4% CLEANSER FOR DECOLONIZATION TP SCH (21:53)
[2018-05-26] MEDS: BUDESONIDE/FORMETEROL FUMARATE 160/4.5 mcg INHALER IH SCH (21:54)
[2018-05-27 06:01] LABS: BASO % 0.1 % (0-2.0); HEMOGLOBIN 10.1 GM/dL (10.7-15.3); LYMPH % 0.9 % (8-40); MCH 25.7 pg (25.7-33.7); MCHC 30.5 g/dl (32.0-36.0); MEAN CELL VOLUME 84.2 fl (80-96); MEAN PLT VOLUME 9.1 fl (7.5-11.1); MONO % 4.2 % (3.8-10.2); NEUT % 94.8 % (42.8-82.8); PLATELET COUNT 221 K/MM3 (134-434); RBC 3.93 M/mm3 (3.60-5.2); RDW 15.8 % (11.6-15.6); WHITE BLOOD COUNT 14.6 K/mm3 (4.0-10.0)
[2018-05-27 06:28] LABS: ALBUMIN 2.2 g/dl (3.4-5.0); ALK PHOS 48 U/L (45-117); ANION GAP 4 MMOL/L (8-16); BILIRUBIN,TOTAL 0.3 mg/dL (0.2-1); BLOOD UREA NITROGEN 46 mg/dL (7-18); CALCIUM 8.3 mg/dL (8.5-10.1); CHLORIDE 108 mmol/L (98-107); CO2 36 mmol/L (21-32); CREATININE 0.7 mg/dL (0.55-1.3); GLUCOSE,RANDOM 127 mg/dL (74-106); MAGNESIUM 2.3 mg/dL (1.8-2.4); PHOSPHOROUS 3.5 mg/dL (2.5-4.9); POTASSIUM 4.5 mmol/L (3.5-5.1); SGOT/AST 12 U/L (15-37); SGPT/ALT 19 U/L (13-61); SODIUM 148 mmol/L (136-145); TOT PROT 4.9 g/dl (6.4-8.2)
[2018-05-27 06:46] LABS: ARTERIAL BLD GAS O2 SATURATION 92.1 % (90-98.9); ARTERIAL BLOOD GAS BASE EXCESS 9.9 meq/l (-2-2); ARTERIAL BLOOD GAS PCO2 61.9 mmHg (35-45); ARTERIAL BLOOD GAS PO2 66.4 mmHg (80-100); ARTERIAL BLOOD GAS pH 7.39 (7.35-7.45)
[2018-05-27 06:47] LABS: ALLENS TEST POSITIVE
[2018-05-27] MEDS ORDERED: PT OWN MED DRAWER 7, Y5N ONE (08:17)
[2018-05-27] MEDS ORDERED: DEXTROSE 5%-WATER 100 ML IVPB ONE (08:18)
[2018-05-27] MEDS: ACETYLCYSTEINE 20% 200MG/ML 4 ML VIAL *FOR ORAL / INH USE ONLY NEB SCH ×4 (09:00→20:50)
[2018-05-27] MEDS: ALBUTEROL SO4 0.083% IH SOL 2.5 MG/3 ML VIAL.NEB. NEB SCH ×4 (09:00→20:50)
[2018-05-27] MEDS: CEFTRIAXONE 2 GM in DEXTROSE 5%-WATER 100 ML IVPB SCH (09:29)
[2018-05-27] MEDS: methylPREDNISolone NA SUCC 40 MG/1 ML VIAL IVPUSH SCH ×2 (09:29→21:07)
[2018-05-27] MEDS: ENOXAPARIN NA (PORCINE) 40 MG/0.4 ML DISP.SYRIN SQ SCH (09:30)
[2018-05-27] MEDS: PANTOPRAZOLE SODIUM 40 MG VIAL IVPUSH SCH (09:30)
[2018-05-27] MEDS: BUDESONIDE/FORMETEROL FUMARATE 160/4.5 mcg INHALER IH SCH ×2 (09:30→21:12)
[2018-05-27] MEDS: amLODIPine BESYLATE 5 MG TABLET (FP) PO SCH (09:47)
[2018-05-27 10:34] LABS: ANISOCYTOSIS 0; MACROCYTOSIS 0; PLATELET ESTIMATE NORMAL
--- NOTE | 2018-05-27 10:53 | PN ---
Progress Note, Physician History of Present Illness: Awake and alert on high flow O2 Seated in bed Slightly tachypneic but breathing non-labored Low grade temp noted + leukocytosis Sputum c/s Pneumococcus, MSSA - Current Medication List Current Medications: Active Medications Acetylcysteine (Mucomyst 20 Oral / Inh Use Only*) 400 mg NEB RQID [facility] Last Admin: 05/26/18 21:00 Dose: 400 mg Albuterol Sulfate (Ventolin 0.083% Nebulizer Soln -) 1 amp NEB Q4H PRN PRN Reason: SHORT OF BREATH/WHEEZING Last Admin: 05/25/18 02:45 Dose: 1 amp Albuterol Sulfate (Ventolin 0.083% Nebulizer Soln -) 1 amp NEB RQID [facility] Last Admin: 05/26/18 21:00 Dose: 1 amp Amlodipine Besylate (Norvasc -) 5 mg PO DAILY [facility] Last Admin: 05/27/18 09:47 Dose: 5 mg Budesonide/Formoterol Fumarate (Symbicort 160/4.5mcg -) 2 puff IH BID [facility] Last Admin: 05/27/18 09:30 Dose: 2 puff Chlorhexidine Gluconate (Hibiclens For Decolonization -) 1 applic TP HS [facility] Last Admin: 05/26/18 21:53 Dose: 1 applic Enoxaparin Sodium (Lovenox -) 40 mg SQ DAILY [facility] Last Admin: 05/27/18 09:30 Dose: 40 mg Ceftriaxone Sodium 2 gm/ (Dextrose) 100 mls @ 200 mls/hr IVPB DAILY [facility]; Protocol Last Admin: 05/27/18 09:29 Dose: 200 mls/hr Methylprednisolone Sodium Succinate (Solu-Medrol -) 40 mg IVPUSH BID [facility] Last Admin: 05/27/18 09:29 Dose: 40 mg Pantoprazole Sodium (Protonix Iv) 40 mg IVPUSH DAILY [facility] Last Admin: 05/27/18 09:30 Dose: 40 mg - Objective Vital Signs: Vital Signs Temperature 99.5 F 05/27/18 10:00 Pulse Rate 103 H 05/27/18 10:00 Respiratory Rate 20 05/27/18 10:00 Blood Pressure 117/99 05/27/18 10:00 O2 Sat by Pulse Oximetry (%) 92 L 05/27/18 09:00 Constitutional: Yes: No Distress Eyes: Yes: Conjunctiva Clear Cardiovascular: Yes: Regular Rate and Rhythm, Tachycardia, S1, S2 Respiratory: Yes: Diminished Gastrointestinal: Yes: Normal Bowel Sounds, Soft. No: Tenderness Edema: No Labs: CBC, BMP 05/27/18 05:15 05/27/18 05:15 INR, PTT INR 1.25 (0.83-1.09) H 05/19/18 08:18 Assessment/Plan Respiratory failure Pneumococcal pneumonia Leukocytosis/ low grade fever Continue ceftriaxone 2gm IVPB q24h
--- NOTE | 2018-05-27 11:52 | PN ---
Teaching Attending Note Name of Resident: Lore Vega ATTENDING PHYSICIAN STATEMENT I saw and evaluated the patient. I reviewed the resident's note and discussed the case with the resident. I agree with the resident's findings and plan as documented. SUBJECTIVE: pt refused interview and exam. events noted for BIPAP at night for labored breathing ASSESSMENT AND PLAN: 67 y/o lady with h/o COPD , on home O2, HTN, lung cancer , and breast cancer, who presented with SOB and was found to have acute hypoxic hypercapnic resp failure, s/p extubation now 1- Acute hypoxic hypercapnic resp failure due to COPD exacerbation and PNA . s/ p extubation - continue to need high flow oxygen. bIPAP as needed - breathing treatments - treat PNA - cont symbicort - cont steroids - cxray better today after a dose of lasix yesterday - echo reviewed. elevated pulmonary artery pressure is likely due to severe chronic lung disease. This was d/w dr. Carrera 2- Severe sepsis due to Strep PNA: - Fever yesterday resolved - cont ceftriaxone - if recurrent high grade fever, will culture 3- HTN: cont norvasc 4- DVT PX : lovenox GI px : PPI
--- NOTE | 2018-05-27 12:25 | PN ---
Progress Note, MEDICAL CODER - Note Progress Note: Selected Entries 05/26/18 05/26/18 05/26/18 02:00 06:00 09:24 Breakfast 25% Lunch Temperature 100 F H 99.8 F H 05/26/18 05/26/18 05/26/18 10:00 14:00 14:38 Breakfast Lunch 50% Temperature 98.9 F 100.0 F H 05/26/18 05/27/18 05/27/18 20:00 02:00 06:00 Breakfast Lunch Temperature 98.9 F 97.6 F 98.2 F 05/27/18 05/27/18 10:00 11:08 Breakfast 25% Lunch Temperature 99.5 F Laboratory Tests 05/26/18 05/27/18 05:30 05:15 WBC 15.2 H 14.6 H Pt tolerated fish and oatmeal. She is not drinking the Ensure clear as it contains milk products. Not eating a lot.] REC:Tolerating diet well.Aspiration precautions. Monitor tolerance. Upgrade diet, as tolerated and desired. Several small meals throughout the day may increase nutritional intake.
--- NOTE | 2018-05-27 12:33 | PN ---
Teaching Attending Note Name of Resident: Clyde Esparza ATTENDING PHYSICIAN STATEMENT I saw and evaluated the patient. I reviewed the resident's note and discussed the case with the resident. I agree with the resident's findings and plan as documented. SUBJECTIVE: Pt seen and examined in the ICU. Back on BiPAP overnight for increased work of breathing. Now on HFOT with 60L/min, 60% FiO2. OBJECTIVE: Vital Signs Period Temp Pulse Resp BP Sys/Sawyer Pulse Ox Last 24 Hr 97.6 F-100.0 F 64-118 17-22 97-154/54-99 92-96 Intake & Output 05/24/18 05/25/18 05/26/18 05/27/18 23:59 23:59 23:59 23:59 Intake Total 2079.6 617 370 50 Output Total 1710 2100 1200 Balance 369.6 -1483 -830 50 Weight 55.367 kg 54.913 kg 53.155 kg 53.637 kg Gen: tachypneic on HFOT Heart: RRR Lung: distant breath sounds, no wheezes Abd: soft, nontender Ext: no edema CBC, BMP 05/27/18 05:15 05/27/18 05:15 Active Medications Acetylcysteine (Mucomyst 20 Oral / Inh Use Only*) 400 mg NEB RQID [facility] Last Admin: 05/26/18 21:00 Dose: 400 mg Albuterol Sulfate (Ventolin 0.083% Nebulizer Soln -) 1 amp NEB Q4H PRN PRN Reason: SHORT OF BREATH/WHEEZING Last Admin: 05/25/18 02:45 Dose: 1 amp Albuterol Sulfate (Ventolin 0.083% Nebulizer Soln -) 1 amp NEB RQID [facility] Last Admin: 05/26/18 21:00 Dose: 1 amp Amlodipine Besylate (Norvasc -) 5 mg PO DAILY [facility] Last Admin: 05/27/18 09:47 Dose: 5 mg Budesonide/Formoterol Fumarate (Symbicort 160/4.5mcg -) 2 puff IH BID [facility] Last Admin: 05/27/18 09:30 Dose: 2 puff Chlorhexidine Gluconate (Hibiclens For Decolonization -) 1 applic TP HS [facility] Last Admin: 05/26/18 21:53 Dose: 1 applic Enoxaparin Sodium (Lovenox -) 40 mg SQ DAILY [facility] Last Admin: 05/27/18 09:30 Dose: 40 mg Ceftriaxone Sodium 2 gm/ (Dextrose) 100 mls @ 200 mls/hr IVPB DAILY [facility]; Protocol Last Admin: 05/27/18 09:29 Dose: 200 mls/hr Methylprednisolone Sodium Succinate (Solu-Medrol -) 40 mg IVPUSH BID [facility] Last Admin: 05/27/18 09:29 Dose: 40 mg Pantoprazole Sodium (Protonix Iv) 40 mg IVPUSH DAILY [facility] Last Admin: 05/27/18 09:30 Dose: 40 mg ASSESSMENT AND PLAN: Acute on Chronic Hypoxic and Hypercapneic Respiratory Failure Pneumonia Severe Sepsis improving ARDS resolving Acute COPD Exacerbation Lactic Acidosis resolved h/o Lung Cancer - taper flow rate, Fio2 to keep Spo2 >90% - BiPAP as needed to assist in work of breathing - continue antibiotics - continue medrol at current dose - inhaled bronchodilators - increase free water - DVT/GI prophylaxis - continue ICU monitoring for tenuous respiratory status critical care time spent in reviewing chart, evaluating patient and formulating plan 35 min
--- NOTE | 2018-05-27 12:45 | PN ---
Physical Exam: ICU team SUBJECTIVE: Patient seen and examined at bed side , had some respiratory distress over night and was put on BIPAP , will put her back on high flow, denies any fever, chills, still coughing with phlegm but improving . noted some thrush on tongue OBJECTIVE: Vital Signs Period Temp Pulse Resp BP Sys/Sawyer Pulse Ox Last 24 Hr 97.6 F-100.0 F 64-118 17-22 97-154/54-99 92-96 GENERAL: AAOx3 in NAD HEAD:NC/AT EYES: PERRL, EOMI ENT: MMM NECK: Trachea midline, full range of motion, supple. LUNGS: fine rales on bases , no wheezes , no accessory muscle use HEART: Regular rate and rhythm, S1, S2 , 2/6 systolic murmur LUSB , no rub or gallop. ABDOMEN: Soft, nontender, nondistended, normoactive bowel sounds, EXTREMITIES: 2+ pulses, warm, well-perfused, no edema. NEUROLOGICAL: No focal deficit . Normal speech, gait not observed. PSYCH: Normal mood, normal affect. SKIN: Warm, dry, normal turgor, right chest surgical scar. Laboratory Results - last 24 hr 05/22/18 05/26/18 05/27/18 21:58 06:01 05:15 WBC 14.6 H RBC 3.93 Hgb 10.1 L Hct 33.0 MCV 84.2 MCH 25.7 MCHC 30.5 L RDW 15.8 H Plt Count 221 MPV 9.1 Absolute Neuts (auto) 13.9 H Neutrophils % 94.8 H Neutrophils % (Manual) 95.9 H Band Neutrophils % 0.0 Lymphocytes % 0.9 L Lymphocytes % (Manual) 0.0 L Monocytes % 4.2 Monocytes % (Manual) 3 L Eosinophils % 0.0 D Eosinophils % (Manual) 0.0 Basophils % 0.1 Basophils % (Manual) 0.0 Myelocytes % (Man) 1 Promyelocytes % (Man) 0 Blast Cells % (Manual) 0 Nucleated RBC % 0 Metamyelocytes 0 D Hypochromia 1+ Platelet Estimate Normal Polychromasia 1+ Poikilocytosis 0 Basophilic Stippling 1+ Anisocytosis 0 Microcytosis 0 Macrocytosis 0 Puncture Site ABG pH ABG pCO2 at Pt Temp ABG pO2 at Pt Temp ABG HCO3 ABG O2 Sat (Measured) ABG O2 Content ABG Base Excess Bj Test O2 Delivery Device Oxygen Flow Rate Vent Mode Vent Rate PEEP Pressure Support Vent Sodium Potassium Chloride Carbon Dioxide Anion Gap BUN Creatinine Creat Clearance w eGFR POC Glucometer 138.89352 123.95080 Random Glucose Calcium Phosphorus Magnesium Total Bilirubin AST ALT Alkaline Phosphatase Total Protein Albumin 05/27/18 05/27/18 05:15 06:30 WBC RBC Hgb Hct MCV MCH MCHC RDW Plt Count MPV Absolute Neuts (auto) Neutrophils % Neutrophils % (Manual) Band Neutrophils % Lymphocytes % Lymphocytes % (Manual) Monocytes % Monocytes % (Manual) Eosinophils % Eosinophils % (Manual) Basophils % Basophils % (Manual) Myelocytes % (Man) Promyelocytes % (Man) Blast Cells % (Manual) Nucleated RBC % Metamyelocytes Hypochromia Platelet Estimate Polychromasia Poikilocytosis Basophilic Stippling Anisocytosis Microcytosis Macrocytosis Puncture Site Left brachial ABG pH 7.39 ABG pCO2 at Pt Temp 61.9 H* ABG pO2 at Pt Temp 66.4 L ABG HCO3 36.3 H ABG O2 Sat (Measured) 92.1 ABG O2 Content 13.0 L ABG Base Excess 9.9 H Bj Test Positive O2 Delivery Device Bipap Oxygen Flow Rate 50 Vent Mode S/t Vent Rate 12 PEEP 0.0 Pressure Support Vent 14/7 Sodium 148 H Potassium 4.5 Chloride 108 H Carbon Dioxide 36 H Anion Gap 4 L BUN 46 H Creatinine 0.7 Creat Clearance w eGFR > 60 POC Glucometer Random Glucose 127 H Calcium 8.3 L Phosphorus 3.5 Magnesium 2.3 Total Bilirubin 0.3 AST 12 L ALT 19 Alkaline Phosphatase 48 Total Protein 4.9 L Albumin 2.2 L Active Medications Generic Name Dose Route Start Last Admin Trade Name Freq PRN Reason Stop Dose Admin Acetylcysteine 400 mg 05/24/18 20:00 05/27/18 09:00 Mucomyst 20 Oral / Inh Use Only* NEB 400 mg RQID BRIE Administration Albuterol Sulfate 1 amp 05/19/18 11:35 05/25/18 02:45 Ventolin 0.083% Nebulizer Soln - NEB 1 amp Q4H PRN Administration SHORT OF BREATH/WHEEZING Albuterol Sulfate 1 amp 05/25/18 12:00 05/27/18 09:00 Ventolin 0.083% Nebulizer Soln - NEB 1 amp RQID BRIE Administration Amlodipine Besylate 5 mg 05/20/18 10:00 05/27/18 09:47 Norvasc - PO 5 mg DAILY BRIE Administration Budesonide/Formoterol Fumarate 2 puff 05/26/18 22:00 05/27/18 09:30 Symbicort 160/4.5mcg - IH 2 puff BID BRIE Administration Chlorhexidine Gluconate 1 applic 05/19/18 22:00 05/26/18 21:53 Hibiclens For Decolonization - TP 1 applic HS BRIE Administration Enoxaparin Sodium 40 mg 05/21/18 10:00 05/27/18 09:30 Lovenox - SQ 40 mg DAILY BRIE Administration Ceftriaxone Sodium 2 gm/ 100 mls @ 200 mls/hr 05/23/18 14:45 05/27/18 09:29 Dextrose IVPB 200 mls/hr DAILY BRIE Administration Protocol Methylprednisolone Sodium Succinate 40 mg 05/23/18 10:00 05/27/18 09:29 Solu-Medrol - IVPUSH 40 mg BID BRIE Administration Pantoprazole Sodium 40 mg 05/19/18 11:45 05/27/18 09:30 Protonix Iv IVPUSH 40 mg DAILY BRIE Administration CBC, BMP 05/27/18 05:15 05/27/18 05:15 ASSESSMENT/PLAN: 67 y/o F w/ PMHx COPD on 2L O2, breast and lung Ca, perforated ulcer, prior intubation, p/w lethargy, SOB, increased WOB, found to have b/l infiltrates on CXR. Decompensated and underwent intubation and RIJ central line placement. In ICU in septic shock w/ acute on chronic respiratory failure 2/2 PNA. #pulmonary * cont HFOT taper flow, NIPPV as necessary and over night if needed * solumedrol 40 BID * bronchodilators standing and PRN * mucomyst * chest PT * CXR with no new changes * ABG improved ph 7.39, pco2 61.9, po2 66, bec 36 * f/u ABG, CXR #CV * maintaining MAP off pressors, central line removed * BP today in 140/80 #ID -CA PNA * ID following * urine pneumococcal antigens positive * sputum culture positive for S pneumo and S aureus * cont Ceftriaxone (day 5, day 7 overall of ABx), further ABx as per ID * WBC trending down 14.6 today - some oral thrush * Nystatin swallow TID #functional * PT consulted out of bed as tolerated #FEN * no IVF * Hyper natremia 148 , monitor and encouraged to drink more free water , P 3.5, MG 2.3. * dysphasia puree w/ thin liquids #PPx * DVT: Lovenox sq daily * GI: PO PTX 40 daily #code * full code #dispo * continue to monitor in ICU Visit type - Emergency Visit Emergency Visit: Yes ED Registration Date: 05/19/18 Care time: The patient presented to the Emergency Department on the above date and was hospitalized for further evaluation of their emergent condition. - New Patient This patient is new to me today: No - Critical Care Critical Care patient: Yes Total Critical Care Time (in minutes): 45 Critical Care Statement: The care of this patient involved high complexity decision making to prevent further life threatening deterioration of the patient 's condition and/or to evaluate & treat vital organ system(s) failure or risk of failure.
[2018-05-27] MEDS: NYSTATIN 500,000 UNITS/5 ML SUSPENSION PO SCH (17:57)
--- NOTE | 2018-05-27 19:13 | PN ---
Physical Exam: SUBJECTIVE: Patient seen and examined at bedside this morning. No acute events overnight. Patient preferred to use bipap at night time, because it makes her "less anxious" and was able to sleep better. This morning, patient was put back on high flow so she could eat. OBJECTIVE: Vital Signs Period Temp Pulse Resp BP Sys/Sawyer Pulse Ox Last 24 Hr 97.6 F-99.5 F 64-118 17-24 97-157/54-99 92-96 GENERAL: Patient is awake, alert, on bipap, +accessory muscle use HEAD: Normal with no signs of trauma. HEENT: PERRLA, dry mucous membranes NECK: soft, supple, trachea midline LUNGS: +crackles, bilateral bases HEART: Regular rate and rhythm, S1, S2 without murmur, rub or gallop. ABDOMEN: Soft, nontender, nondistended, normoactive bowel sounds EXTREMITIES: 2+ pulses, warm, well-perfused, no edema. Laboratory Results - last 24 hr 05/27/18 05/27/18 05/27/18 05:15 05:15 06:30 WBC 14.6 H RBC 3.93 Hgb 10.1 L Hct 33.0 MCV 84.2 MCH 25.7 MCHC 30.5 L RDW 15.8 H Plt Count 221 MPV 9.1 Absolute Neuts (auto) 13.9 H Neutrophils % 94.8 H Neutrophils % (Manual) 95.9 H Band Neutrophils % 0.0 Lymphocytes % 0.9 L Lymphocytes % (Manual) 0.0 L Monocytes % 4.2 Monocytes % (Manual) 3 L Eosinophils % 0.0 D Eosinophils % (Manual) 0.0 Basophils % 0.1 Basophils % (Manual) 0.0 Myelocytes % (Man) 1 Promyelocytes % (Man) 0 Blast Cells % (Manual) 0 Nucleated RBC % 0 Metamyelocytes 0 D Hypochromia 1+ Platelet Estimate Normal Polychromasia 1+ Poikilocytosis 0 Basophilic Stippling 1+ Anisocytosis 0 Microcytosis 0 Macrocytosis 0 Puncture Site Left brachial ABG pH 7.39 ABG pCO2 at Pt Temp 61.9 H* ABG pO2 at Pt Temp 66.4 L ABG HCO3 36.3 H ABG O2 Sat (Measured) 92.1 ABG O2 Content 13.0 L ABG Base Excess 9.9 H Bj Test Positive O2 Delivery Device Bipap Oxygen Flow Rate 50 Vent Mode S/t Vent Rate 12 PEEP 0.0 Pressure Support Vent 14/7 Sodium 148 H Potassium 4.5 Chloride 108 H Carbon Dioxide 36 H Anion Gap 4 L BUN 46 H Creatinine 0.7 Creat Clearance w eGFR > 60 Random Glucose 127 H Calcium 8.3 L Phosphorus 3.5 Magnesium 2.3 Total Bilirubin 0.3 AST 12 L ALT 19 Alkaline Phosphatase 48 Total Protein 4.9 L Albumin 2.2 L Active Medications Generic Name Dose Route Start Last Admin Trade Name Freq PRN Reason Stop Dose Admin Acetylcysteine 400 mg 05/24/18 20:00 05/27/18 17:45 Mucomyst 20 Oral / Inh Use Only* NEB 400 mg RQID BRIE Administration Albuterol Sulfate 1 amp 05/19/18 11:35 05/25/18 02:45 Ventolin 0.083% Nebulizer Soln - NEB 1 amp Q4H PRN Administration SHORT OF BREATH/WHEEZING Albuterol Sulfate 1 amp 05/25/18 12:00 05/27/18 17:45 Ventolin 0.083% Nebulizer Soln - NEB 1 amp RQID BRIE Administration Amlodipine Besylate 5 mg 05/20/18 10:00 05/27/18 09:47 Norvasc - PO 5 mg DAILY BRIE Administration Budesonide/Formoterol Fumarate 2 puff 05/26/18 22:00 05/27/18 09:30 Symbicort 160/4.5mcg - IH 2 puff BID BRIE Administration Chlorhexidine Gluconate 1 applic 05/19/18 22:00 05/26/18 21:53 Hibiclens For Decolonization - TP 1 applic HS BRIE Administration Enoxaparin Sodium 40 mg 05/21/18 10:00 05/27/18 09:30 Lovenox - SQ 40 mg DAILY BRIE Administration Ceftriaxone Sodium 2 gm/ 100 mls @ 200 mls/hr 05/23/18 14:45 05/27/18 09:29 Dextrose IVPB 200 mls/hr DAILY BRIE Administration Protocol Methylprednisolone Sodium Succinate 40 mg 05/23/18 10:00 05/27/18 09:29 Solu-Medrol - IVPUSH 40 mg BID BRIE Administration Nystatin 500,000 units 05/27/18 18:00 05/27/18 17:57 Nystatin Oral Suspension - PO 500,000 units Q6HPO BRIE Administration Pantoprazole Sodium 40 mg 05/28/18 10:00 Protonix - PO DAILY BRIE ASSESSMENT/PLAN: Patient is a 67 year old female with past medical history of COPD with hx of intubation, breast and lung CA, perforated ulcer, HTN, presented with worsening shortness of breath with increased sputum production for a few days. #Acute hypoxic respiratory failure:likely 2/2 COPD exacerbation, bilateral pneumonia: improving -s/p extubation. On high flow NC -Duonebs RQID, Albuterol q4h PRN -Mucomyst -IV Methylprednisolone 40mg BID -Resume home Symbicort -ABG, CXR #Septic shock likely 2/2 pneumonia: improving -ID consulted. Recommendations appreciated. -Vanc/Zosyn discontinued -Oseltamivir 75mg BID discontinued. -Ceftriaxone 2gm daily day 5 -Urine pneumococcal antigens positive -Sputum cx: S. pneumoniae, S. aureus #HTN -Continue home Amlodipine 5mg daily -Will continue to monitor BP #FEN -Not on any standing fluids -Electrolytes wnl, routine bmp monitoring -Dysphagia puree diet #Prophylaxis -DVT: Lovenox 40mg sq daily -GI: IV protonix 40mg daily #Disposition -full code -Admit to ICU for closer monitoring Visit type - Emergency Visit Emergency Visit: Yes ED Registration Date: 05/19/18 Care time: The patient presented to the Emergency Department on the above date and was hospitalized for further evaluation of their emergent condition. - New Patient This patient is new to me today: No - Critical Care Critical Care patient: Yes Total Critical Care Time (in minutes): 35 Critical Care Statement: The care of this patient involved high complexity decision making to prevent further life threatening deterioration of the patient 's condition and/or to evaluate & treat vital organ system(s) failure or risk of failure.
[2018-05-27] MEDS: CHLORHEXIDINE GLUCONATE 4% CLEANSER FOR DECOLONIZATION TP SCH (21:07)
[2018-05-28] MEDS: NYSTATIN 500,000 UNITS/5 ML SUSPENSION PO SCH ×4 (01:23→17:17)
[2018-05-28 06:24] LABS: BASO % 0.2 % (0-2.0); HEMATOCRIT 37.4 % (32.4-45.2); HEMOGLOBIN 11.3 GM/dL (10.7-15.3); LYMPH % 1.1 % (8-40); MCHC 30.3 g/dl (32.0-36.0); MONO % 2.6 % (3.8-10.2); NEUT % 96.1 % (42.8-82.8); PLATELET COUNT 260 K/MM3 (134-434); RBC 4.35 M/mm3 (3.60-5.2); RDW 15.6 % (11.6-15.6); WHITE BLOOD COUNT 21.1 K/mm3 (4.0-10.0)
[2018-05-28 07:07] LABS: ANION GAP 0 MMOL/L (8-16); BLOOD UREA NITROGEN 41 mg/dL (7-18); CALCIUM 8.9 mg/dL (8.5-10.1); CHLORIDE 104 mmol/L (98-107); CO2 40 mmol/L (21-32); CREATININE 0.6 mg/dL (0.55-1.3); GLUCOSE,RANDOM 126 mg/dL (74-106); MAGNESIUM 2.5 mg/dL (1.8-2.4); PHOSPHOROUS 3.8 mg/dL (2.5-4.9); POTASSIUM 4.6 mmol/L (3.5-5.1); SODIUM 143 mmol/L (136-145)
[2018-05-28] MEDS: ACETYLCYSTEINE 20% 200MG/ML 4 ML VIAL *FOR ORAL / INH USE ONLY NEB SCH ×4 (07:25→21:25)
[2018-05-28] MEDS: ALBUTEROL SO4 0.083% IH SOL 2.5 MG/3 ML VIAL.NEB. NEB SCH ×4 (07:25→21:25)
[2018-05-28] MEDS ORDERED: DEXTROSE 5%-WATER 100 ML IVPB ONE (09:19)
[2018-05-28 09:26] LABS: ANISOCYTOSIS 1+; MACROCYTOSIS 0; OVALOCYTE 1+; PLATELET ESTIMATE NORMAL
[2018-05-28] MEDS: CEFTRIAXONE 2 GM in DEXTROSE 5%-WATER 100 ML IVPB SCH (10:01)
[2018-05-28] MEDS: amLODIPine BESYLATE 5 MG TABLET (FP) PO SCH (10:02)
[2018-05-28] MEDS: ENOXAPARIN NA (PORCINE) 40 MG/0.4 ML DISP.SYRIN SQ SCH (10:02)
[2018-05-28] MEDS: methylPREDNISolone NA SUCC 40 MG/1 ML VIAL IVPUSH SCH ×2 (10:02→21:24)
[2018-05-28] MEDS: PANTOPRAZOLE 40 MG TABLET (FP) PO SCH (10:02)
[2018-05-28] MEDS: BUDESONIDE/FORMETEROL FUMARATE 160/4.5 mcg INHALER IH SCH ×2 (10:04→21:24)
--- NOTE | 2018-05-28 12:32 | PN ---
Teaching Attending Note Name of Resident: Dhruv Strong ATTENDING PHYSICIAN STATEMENT I saw and evaluated the patient. I reviewed the resident's note and discussed the case with the resident. I agree with the resident's findings and plan as documented. SUBJECTIVE: Patient seen and examined in the ICU. Mildly tachypneic on HF OT, 60L/min, 60% FiO2. Still with some congested cough, but better. No CP. No hemoptysis. OBJECTIVE: Intake & Output 05/25/18 05/26/18 05/27/18 05/28/18 23:59 23:59 23:59 23:59 Intake Total 617 370 630 100 Output Total 2100 1200 Balance -1483 -830 630 100 Weight 121 lb 1 oz 117 lb 3 oz 118 lb 4 oz 118 lb 14.4 oz Last Vital Signs Temp Pulse Resp BP Pulse Ox 98.0 F 116 H 24 H 146/105 H 92 L 05/28/18 10:00 05/28/18 10:00 05/28/18 10:00 05/28/18 10:00 05/28/18 08:21 Active Medications Acetylcysteine (Mucomyst 20 Oral / Inh Use Only*) 400 mg NEB RQID [facility] Last Admin: 05/28/18 11:30 Dose: 400 mg Albuterol Sulfate (Ventolin 0.083% Nebulizer Soln -) 1 amp NEB Q4H PRN PRN Reason: SHORT OF BREATH/WHEEZING Last Admin: 05/25/18 02:45 Dose: 1 amp Albuterol Sulfate (Ventolin 0.083% Nebulizer Soln -) 1 amp NEB RQID [facility] Last Admin: 05/28/18 11:30 Dose: 1 amp Amlodipine Besylate (Norvasc -) 5 mg PO DAILY [facility] Last Admin: 05/28/18 10:02 Dose: 5 mg Budesonide/Formoterol Fumarate (Symbicort 160/4.5mcg -) 2 puff IH BID [facility] Last Admin: 05/28/18 10:04 Dose: 2 puff Chlorhexidine Gluconate (Hibiclens For Decolonization -) 1 applic TP HS [facility] Last Admin: 05/27/18 21:07 Dose: 1 applic Enoxaparin Sodium (Lovenox -) 40 mg SQ DAILY [facility] Last Admin: 05/28/18 10:02 Dose: 40 mg Ceftriaxone Sodium 2 gm/ (Dextrose) 100 mls @ 200 mls/hr IVPB DAILY [facility]; Protocol Last Admin: 05/28/18 10:01 Dose: 200 mls/hr Methylprednisolone Sodium Succinate (Solu-Medrol -) 40 mg IVPUSH BID [facility] Last Admin: 05/28/18 10:02 Dose: 40 mg Nystatin (Nystatin Oral Suspension -) 500,000 units PO Q6HPO [facility] Last Admin: 05/28/18 12:22 Dose: 500,000 units Pantoprazole Sodium (Protonix -) 40 mg PO DAILY [facility] Last Admin: 05/28/18 10:02 Dose: 40 mg Gen: Awake and alert, mildly tachypneic on HFOT Heart: RRR Lung: distant breath sounds, no wheezes Abd: soft, nontender Ext: no edema Laboratory Results - last 24 hr 05/28/18 05/28/18 05:30 05:30 WBC 21.1 H RBC 4.35 Hgb 11.3 Hct 37.4 MCV 86.0 MCH 26.0 MCHC 30.3 L RDW 15.6 Plt Count 260 MPV 9.0 Absolute Neuts (auto) 20.2 H Neutrophils % 96.1 H Neutrophils % (Manual) 98.0 H Band Neutrophils % 1.0 Lymphocytes % 1.1 L D Lymphocytes % (Manual) 0.0 L Monocytes % 2.6 L Monocytes % (Manual) 1 L Eosinophils % 0.0 Eosinophils % (Manual) 0.0 Basophils % 0.2 Basophils % (Manual) 0.0 Myelocytes % (Man) 0 D Promyelocytes % (Man) 0 Blast Cells % (Manual) 0 Nucleated RBC % 0 Metamyelocytes 0 Hypochromia 0 Platelet Estimate Normal Platelet Comment Present Polychromasia 0 Poikilocytosis 0 Anisocytosis 1+ Microcytosis 0 Macrocytosis 0 Ovalocytes 1+ Sodium 143 Potassium 4.6 Chloride 104 Carbon Dioxide 40 H Anion Gap 0 L BUN 41 H Creatinine 0.6 Creat Clearance w eGFR > 60 Random Glucose 126 H Calcium 8.9 Phosphorus 3.8 Magnesium 2.5 H ASSESSMENT AND PLAN: Acute on Chronic Hypoxic and Hypercapneic Respiratory Failure Pneumonia Severe Sepsis improving ARDS resolving Acute COPD Exacerbation Lactic Acidosis resolved h/o Lung Cancer - taper flow rate, Fio2 to keep Spo2 >90% - BiPAP as needed to assist in work of breathing - continue antibiotics - continue medrol at current dose - inhaled bronchodilators - increase free water - DVT/GI prophylaxis - LTAC evaluation - continue ICU monitoring for tenuous respiratory status critical care time spent in reviewing chart, evaluating patient and formulating plan 35 min
--- NOTE | 2018-05-28 13:47 | PN ---
Physical Exam: SUBJECTIVE: Patient seen and examined at bedside. Comfortable breathing on HFOT. No need for NIPPV overnight. No other acute issues or complaints overnight. OBJECTIVE: Vital Signs Period Temp Pulse Resp BP Sys/Sawyer Pulse Ox Last 24 Hr 98.0 F-99.3 F 90-119 18-28 140-157/77-105 92-93 GENERAL: A&Ox3, NAD HEAD: NC/AT EYES: PERRLA, EOMI ENT: MMM NECK: Trachea midline, no JVD or LAD LUNGS: reduced wheezing/crackles, limited inspiratory effort HEART: RRR no m/r/g ABDOMEN: +bs, soft, NT, ND EXTREMITIES: 2+ pulses, warm, well-perfused, no edema. 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 PSYCH: normal mood and affect SKIN: Warm, dry, normal turgor Laboratory Results - last 24 hr 05/28/18 05/28/18 05:30 05:30 WBC 21.1 H RBC 4.35 Hgb 11.3 Hct 37.4 MCV 86.0 MCH 26.0 MCHC 30.3 L RDW 15.6 Plt Count 260 MPV 9.0 Absolute Neuts (auto) 20.2 H Neutrophils % 96.1 H Neutrophils % (Manual) 98.0 H Band Neutrophils % 1.0 Lymphocytes % 1.1 L D Lymphocytes % (Manual) 0.0 L Monocytes % 2.6 L Monocytes % (Manual) 1 L Eosinophils % 0.0 Eosinophils % (Manual) 0.0 Basophils % 0.2 Basophils % (Manual) 0.0 Myelocytes % (Man) 0 D Promyelocytes % (Man) 0 Blast Cells % (Manual) 0 Nucleated RBC % 0 Metamyelocytes 0 Hypochromia 0 Platelet Estimate Normal Platelet Comment Present Polychromasia 0 Poikilocytosis 0 Anisocytosis 1+ Microcytosis 0 Macrocytosis 0 Ovalocytes 1+ Sodium 143 Potassium 4.6 Chloride 104 Carbon Dioxide 40 H Anion Gap 0 L BUN 41 H Creatinine 0.6 Creat Clearance w eGFR > 60 Random Glucose 126 H Calcium 8.9 Phosphorus 3.8 Magnesium 2.5 H Active Medications Generic Name Dose Route Start Last Admin Trade Name Freq PRN Reason Stop Dose Admin Acetylcysteine 400 mg 05/24/18 20:00 05/28/18 11:30 Mucomyst 20 Oral / Inh Use Only* NEB 400 mg RQID BRIE Administration Albuterol Sulfate 1 amp 05/19/18 11:35 05/25/18 02:45 Ventolin 0.083% Nebulizer Soln - NEB 1 amp Q4H PRN Administration SHORT OF BREATH/WHEEZING Albuterol Sulfate 1 amp 05/25/18 12:00 05/28/18 11:30 Ventolin 0.083% Nebulizer Soln - NEB 1 amp RQID BRIE Administration Amlodipine Besylate 5 mg 05/20/18 10:00 05/28/18 10:02 Norvasc - PO 5 mg DAILY BRIE Administration Budesonide/Formoterol Fumarate 2 puff 05/26/18 22:00 05/28/18 10:04 Symbicort 160/4.5mcg - IH 2 puff BID BRIE Administration Chlorhexidine Gluconate 1 applic 05/19/18 22:00 05/27/18 21:07 Hibiclens For Decolonization - TP 1 applic HS BRIE Administration Enoxaparin Sodium 40 mg 05/21/18 10:00 05/28/18 10:02 Lovenox - SQ 40 mg DAILY BRIE Administration Ceftriaxone Sodium 2 gm/ 100 mls @ 200 mls/hr 05/23/18 14:45 05/28/18 10:01 Dextrose IVPB 200 mls/hr DAILY BRIE Administration Protocol Methylprednisolone Sodium Succinate 40 mg 05/23/18 10:00 05/28/18 10:02 Solu-Medrol - IVPUSH 40 mg BID BRIE Administration Nystatin 500,000 units 05/27/18 18:00 05/28/18 12:22 Nystatin Oral Suspension - PO 500,000 units Q6HPO BRIE Administration Pantoprazole Sodium 40 mg 05/28/18 10:00 05/28/18 10:02 Protonix - PO 40 mg DAILY BRIE Administration ASSESSMENT/PLAN: 67 y/o F w/ PMHx COPD on 2L O2, breast and lung Ca, perforated ulcer, prior intubation, p/w lethargy, SOB, increased WOB, found to have b/l infiltrates on CXR. Decompensated and underwent intubation and RIJ central line placement. In ICU in septic shock w/ acute on chronic respiratory failure 2/2 PNA. #pulmonary -on HFOT 50/60, desaturated when attempted to reduce flow rate -NIPPV as necessary -solumedrol 40 BID -bronchodilators standing and PRN -mucomyst -chest PT -ABG likely at baseline -f/u ABG, CXR -if unable to wean from HFOT, will need transfer to LTAC or consideration of trach #CV -maintaining MAP off pressors #ID -ID following -urine pneumococcal antigens positive -sputum culture positive for S pneumo and S aureus -cont Ceftriaxone (day 6, day 8 overall of ABx), further ABx as per ID #functional -PT consulted -OOB w/ PT #FEN -no IVF -monitor and correct electrolytes -dysphagia puree w/ thin liquids #PPx -DVT: Lovenox subq -GI: IV PTX #code -full #dispo -continue to monitor in ICU Visit type - Emergency Visit Emergency Visit: No - New Patient This patient is new to me today: No - Critical Care Critical Care patient: Yes Total Critical Care Time (in minutes): 40 Critical Care Statement: The care of this patient involved high complexity decision making to prevent further life threatening deterioration of the patient 's condition and/or to evaluate & treat vital organ system(s) failure or risk of failure.
--- NOTE | 2018-05-28 16:30 | PN ---
Progress Note, Physician History of Present Illness: Awake and alert on high flow O2 OOB in chair Slightly tachypneic but breathing non-labored Afebrile WBC increased 21K Sputum c/s Pneumococcus, MSSA - Current Medication List Current Medications: Active Medications Acetylcysteine (Mucomyst 20 Oral / Inh Use Only*) 400 mg NEB RQID [facility] Last Admin: 05/28/18 11:30 Dose: 400 mg Albuterol Sulfate (Ventolin 0.083% Nebulizer Soln -) 1 amp NEB Q4H PRN PRN Reason: SHORT OF BREATH/WHEEZING Last Admin: 05/25/18 02:45 Dose: 1 amp Albuterol Sulfate (Ventolin 0.083% Nebulizer Soln -) 1 amp NEB RQID [facility] Last Admin: 05/28/18 11:30 Dose: 1 amp Amlodipine Besylate (Norvasc -) 5 mg PO DAILY [facility] Last Admin: 05/28/18 10:02 Dose: 5 mg Budesonide/Formoterol Fumarate (Symbicort 160/4.5mcg -) 2 puff IH BID [facility] Last Admin: 05/28/18 10:04 Dose: 2 puff Chlorhexidine Gluconate (Hibiclens For Decolonization -) 1 applic TP HS [facility] Last Admin: 05/27/18 21:07 Dose: 1 applic Enoxaparin Sodium (Lovenox -) 40 mg SQ DAILY [facility] Last Admin: 05/28/18 10:02 Dose: 40 mg Ceftriaxone Sodium 2 gm/ (Dextrose) 100 mls @ 200 mls/hr IVPB DAILY [facility]; Protocol Last Admin: 05/28/18 10:01 Dose: 200 mls/hr Methylprednisolone Sodium Succinate (Solu-Medrol -) 40 mg IVPUSH BID [facility] Last Admin: 05/28/18 10:02 Dose: 40 mg Nystatin (Nystatin Oral Suspension -) 500,000 units PO Q6HPO [facility] Last Admin: 05/28/18 12:22 Dose: 500,000 units Pantoprazole Sodium (Protonix -) 40 mg PO DAILY [facility] Last Admin: 05/28/18 10:02 Dose: 40 mg - Objective Vital Signs: Vital Signs Temperature 98.3 F 05/28/18 14:00 Pulse Rate 105 H 05/28/18 14:00 Respiratory Rate 24 H 01/11/19 14:00 Blood Pressure 154/92 01/11/19 14:00 O2 Sat by Pulse Oximetry (%) 93 L 05/28/18 09:00 Constitutional: Yes: No Distress, Cachectic Cardiovascular: Yes: Regular Rate and Rhythm, S1, S2 Respiratory: Yes: Diminished Gastrointestinal: Yes: Normal Bowel Sounds, Soft. No: Tenderness Edema: No Labs: CBC, BMP 05/28/18 05:30 05/28/18 05:30 INR, PTT INR 1.25 (0.83-1.09) H 05/19/18 08:18 Assessment/Plan Respiratory failure Pneumococcal pneumonia Leukocytosis Continue ceftriaxone 2gm IVPB q24h
--- NOTE | 2018-05-28 17:57 | PN ---
Physical Exam: SUBJECTIVE: Patient seen and examined at bedside this morning. Patient eating breakfast. No acute events overnight. Patient did not use bipap. Was on high flow oxygen all night at 60%. OBJECTIVE: Vital Signs Period Temp Pulse Resp BP Sys/Sawyer Pulse Ox Last 24 Hr 98.0 F-99.3 F 90-119 18-28 140-157/77-105 92-93 GENERAL: Patient is awake, alert, on bipap, +accessory muscle use HEAD: Normal with no signs of trauma. HEENT: PERRLA, dry mucous membranes NECK: soft, supple, trachea midline LUNGS: decreased breath sounds bilaterally HEART: Regular rate and rhythm, S1, S2 without murmur, rub or gallop. ABDOMEN: Soft, nontender, nondistended, normoactive bowel sounds EXTREMITIES: 2+ pulses, warm, well-perfused, no edema. Laboratory Results - last 24 hr 05/28/18 05/28/18 05:30 05:30 WBC 21.1 H RBC 4.35 Hgb 11.3 Hct 37.4 MCV 86.0 MCH 26.0 MCHC 30.3 L RDW 15.6 Plt Count 260 MPV 9.0 Absolute Neuts (auto) 20.2 H Neutrophils % 96.1 H Neutrophils % (Manual) 98.0 H Band Neutrophils % 1.0 Lymphocytes % 1.1 L D Lymphocytes % (Manual) 0.0 L Monocytes % 2.6 L Monocytes % (Manual) 1 L Eosinophils % 0.0 Eosinophils % (Manual) 0.0 Basophils % 0.2 Basophils % (Manual) 0.0 Myelocytes % (Man) 0 D Promyelocytes % (Man) 0 Blast Cells % (Manual) 0 Nucleated RBC % 0 Metamyelocytes 0 Hypochromia 0 Platelet Estimate Normal Platelet Comment Present Polychromasia 0 Poikilocytosis 0 Anisocytosis 1+ Microcytosis 0 Macrocytosis 0 Ovalocytes 1+ Sodium 143 Potassium 4.6 Chloride 104 Carbon Dioxide 40 H Anion Gap 0 L BUN 41 H Creatinine 0.6 Creat Clearance w eGFR > 60 Random Glucose 126 H Calcium 8.9 Phosphorus 3.8 Magnesium 2.5 H Active Medications Generic Name Dose Route Start Last Admin Trade Name Freq PRN Reason Stop Dose Admin Acetylcysteine 400 mg 05/24/18 20:00 05/28/18 15:45 Mucomyst 20 Oral / Inh Use Only* NEB 400 mg RQID BRIE Administration Albuterol Sulfate 1 amp 05/19/18 11:35 05/25/18 02:45 Ventolin 0.083% Nebulizer Soln - NEB 1 amp Q4H PRN Administration SHORT OF BREATH/WHEEZING Albuterol Sulfate 1 amp 05/25/18 12:00 05/28/18 15:45 Ventolin 0.083% Nebulizer Soln - NEB 1 amp RQID BRIE Administration Amlodipine Besylate 5 mg 05/20/18 10:00 05/28/18 10:02 Norvasc - PO 5 mg DAILY BRIE Administration Budesonide/Formoterol Fumarate 2 puff 05/26/18 22:00 05/28/18 10:04 Symbicort 160/4.5mcg - IH 2 puff BID BRIE Administration Chlorhexidine Gluconate 1 applic 05/19/18 22:00 05/27/18 21:07 Hibiclens For Decolonization - TP 1 applic HS BRIE Administration Enoxaparin Sodium 40 mg 05/21/18 10:00 05/28/18 10:02 Lovenox - SQ 40 mg DAILY [facility]RIE Administration Ceftriaxone Sodium 2 gm/ 100 mls @ 200 mls/hr 05/23/18 14:45 05/28/18 10:01 Dextrose IVPB 200 mls/hr DAILY [facility]RIE Administration Protocol Methylprednisolone Sodium Succinate 40 mg 05/23/18 10:00 05/28/18 10:02 Solu-Medrol - IVPUSH 40 mg BID BRIE Administration Nystatin 500,000 units 05/27/18 18:00 05/28/18 17:17 Nystatin Oral Suspension - PO 500,000 units Q6HPO BRIE Administration Pantoprazole Sodium 40 mg 05/28/18 10:00 05/28/18 10:02 Protonix - PO 40 mg DAILY BRIE Administration ASSESSMENT/PLAN: Patient is a 67 year old female with past medical history of COPD with hx of intubation, breast and lung CA, perforated ulcer, HTN, presented with worsening shortness of breath with increased sputum production for a few days. #Acute hypoxic respiratory failure:likely 2/2 COPD exacerbation, bilateral pneumonia: improving -s/p extubation. On high flow NC at 50/60 -Duonebs RQID, Albuterol q4h PRN -Mucomyst -IV Methylprednisolone 40mg BID -Resume home Symbicort -ABG, CXR -attempt to wean off HFOT, but patient desaturated -if unable to wean from HFOT, will need transfer to LTAC or consideration of trach #Septic shock likely 2/2 pneumonia: improving -ID (Dr. Roach) consulted. Recommendations appreciated. -Ceftriaxone 2gm daily day 6. -Will need 7-10 days of abx -Urine pneumococcal antigens positive -Sputum cx: S. pneumoniae, S. aureus -Vanc/Zosyn discontinued -Oseltamivir 75mg BID discontinued. #HTN -Continue home Amlodipine 5mg daily -Will continue to monitor BP #FEN -Not on any standing fluids -Electrolytes wnl, routine bmp monitoring -Dysphagia puree diet #Prophylaxis -DVT: Lovenox 40mg sq daily -GI: IV protonix 40mg daily #Disposition -full code -Admit to ICU for closer monitoring Visit type - Emergency Visit Emergency Visit: Yes ED Registration Date: 05/19/18 Care time: The patient presented to the Emergency Department on the above date and was hospitalized for further evaluation of their emergent condition. - New Patient This patient is new to me today: No - Critical Care Critical Care patient: Yes Total Critical Care Time (in minutes): 35 Critical Care Statement: The care of this patient involved high complexity decision making to prevent further life threatening deterioration of the patient 's condition and/or to evaluate & treat vital organ system(s) failure or risk of failure.
--- NOTE | 2018-05-28 19:21 | PN ---
Teaching Attending Note Name of Resident: Johana Milan ATTENDING PHYSICIAN STATEMENT I saw and evaluated the patient. I reviewed the resident's note and discussed the case with the resident. I agree with the resident's findings and plan as documented. SUBJECTIVE: Refused interview and exam ASSESSMENT AND PLAN: 67 y/o lady with h/o COPD , on home O2, HTN, lung cancer , and breast cancer, who presented with SOB and was found to have acute hypoxic hypercapnic resp failure, s/p extubation now 1- Acute hypoxic hypercapnic resp failure due to COPD exacerbation and PNA . s/ p extubation - continue to need high flow oxygen. bIPAP as needed - breathing treatments - cont symbicort - cont steroids 2- Severe sepsis due to Strep PNA: - cont ceftriaxone 3- HTN: cont norvasc 4- DVT PX : lovenox GI px : PPI
[2018-05-28] MEDS: CHLORHEXIDINE GLUCONATE 4% CLEANSER FOR DECOLONIZATION TP SCH (21:24)
[2018-05-29] MEDS: NYSTATIN 500,000 UNITS/5 ML SUSPENSION PO SCH ×5 (01:38→23:03)
[2018-05-29 06:50] LABS: BASO % 0.3 % (0-2.0); HEMATOCRIT 34.7 % (32.4-45.2); HEMOGLOBIN 10.3 GM/dL (10.7-15.3); LYMPH % 0.7 % (8-40); MCH 25.6 pg (25.7-33.7); MCHC 29.6 g/dl (32.0-36.0); MEAN CELL VOLUME 86.6 fl (80-96); MEAN PLT VOLUME 9.1 fl (7.5-11.1); MONO % 2.9 % (3.8-10.2); NEUT % 96.1 % (42.8-82.8); PLATELET COUNT 243 K/MM3 (134-434); RBC 4.01 M/mm3 (3.60-5.2); RDW 16.1 % (11.6-15.6); WHITE BLOOD COUNT 17.9 K/mm3 (4.0-10.0)
[2018-05-29 07:01] LABS: ANION GAP 2 MMOL/L (8-16); BLOOD UREA NITROGEN 41 mg/dL (7-18); CALCIUM 8.9 mg/dL (8.5-10.1); CHLORIDE 103 mmol/L (98-107); CO2 40 mmol/L (21-32); CREATININE 0.6 mg/dL (0.55-1.3); GLUCOSE,RANDOM 99 mg/dL (74-106); MAGNESIUM 2.4 mg/dL (1.8-2.4); PHOSPHOROUS 2.8 mg/dL (2.5-4.9); POTASSIUM 4.8 mmol/L (3.5-5.1); SODIUM 144 mmol/L (136-145)
[2018-05-29] MEDS: ACETYLCYSTEINE 20% 200MG/ML 4 ML VIAL *FOR ORAL / INH USE ONLY NEB SCH ×4 (07:25→20:05)
[2018-05-29] MEDS: ALBUTEROL SO4 0.083% IH SOL 2.5 MG/3 ML VIAL.NEB. NEB SCH ×4 (07:25→20:05)
[2018-05-29] MEDS ORDERED: DEXTROSE 5%-WATER 100 ML IVPB ONE ×2 (09:24→09:27)
[2018-05-29] MEDS: CEFTRIAXONE 2 GM in DEXTROSE 5%-WATER 100 ML IVPB SCH (09:28)
[2018-05-29] MEDS: methylPREDNISolone NA SUCC 40 MG/1 ML VIAL IVPUSH SCH ×2 (09:29→21:18)
[2018-05-29] MEDS: ENOXAPARIN NA (PORCINE) 40 MG/0.4 ML DISP.SYRIN SQ SCH (09:29)
[2018-05-29] MEDS: amLODIPine BESYLATE 5 MG TABLET (FP) PO SCH (09:29)
[2018-05-29] MEDS: PANTOPRAZOLE 40 MG TABLET (FP) PO SCH (09:30)
--- NOTE | 2018-05-29 09:37 | PN ---
Progress Note (short form) - Note Progress Note: Seen and examined in the ICU Patient remains on HFNC 60% 50lpm Used NIPPv overnight Still c/o mild/mod SOB Active Medications Acetylcysteine (Mucomyst 20 Oral / Inh Use Only*) 400 mg NEB RQID [facility] Last Admin: 05/29/18 07:25 Dose: 400 mg Albuterol Sulfate (Ventolin 0.083% Nebulizer Soln -) 1 amp NEB Q4H PRN PRN Reason: SHORT OF BREATH/WHEEZING Last Admin: 05/25/18 02:45 Dose: 1 amp Albuterol Sulfate (Ventolin 0.083% Nebulizer Soln -) 1 amp NEB RQID [facility] Last Admin: 05/29/18 07:25 Dose: 1 amp Amlodipine Besylate (Norvasc -) 5 mg PO DAILY [facility] Last Admin: 05/29/18 09:29 Dose: 5 mg Budesonide/Formoterol Fumarate (Symbicort 160/4.5mcg -) 2 puff IH BID [facility] Last Admin: 05/28/18 21:24 Dose: 2 puff Chlorhexidine Gluconate (Hibiclens For Decolonization -) 1 applic TP HS [facility] Last Admin: 05/28/18 21:24 Dose: 1 applic Enoxaparin Sodium (Lovenox -) 40 mg SQ DAILY [facility] Last Admin: 05/29/18 09:29 Dose: 40 mg Ceftriaxone Sodium 2 gm/ (Dextrose) 100 mls @ 200 mls/hr IVPB DAILY [facility]; Protocol Last Admin: 05/29/18 09:28 Dose: 200 mls/hr Methylprednisolone Sodium Succinate (Solu-Medrol -) 40 mg IVPUSH BID [facility] Last Admin: 05/29/18 09:29 Dose: 40 mg Nystatin (Nystatin Oral Suspension -) 500,000 units PO Q6HPO [facility] Last Admin: 05/29/18 05:36 Dose: 500,000 units Pantoprazole Sodium (Protonix -) 40 mg PO DAILY [facility] Last Admin: 05/29/18 09:30 Dose: 40 mg Vital Signs Period Temp Pulse Resp BP Sys/Sawyer Pulse Ox Last 24 Hr 97.8 F-98.9 F 70-116 17-24 112-154/70-105 83-97 Intake & Output 05/26/18 05/27/18 05/28/18 05/29/18 23:59 23:59 23:59 23:59 Intake Total 370 630 540 100 Output Total 1200 Balance -830 630 540 100 Weight 53.155 kg 53.637 kg 53.932 kg 53.932 kg Exam: General: awake and alert w/ mild/mod SOB using accessory muscles Pulm: diminished w/ poor air movement bilateral CV: s1, s2 Abd: SNTND +Bs Ext: WWP +2 pulses no edema Neuro: grossly intact CBC, BMP 05/29/18 05:30 05/29/18 05:30 CXR: hyperinflated, cont to have LLL consilidation. unchanged from previous ASSESSMENT AND PLAN: Acute on Chronic Hypoxic and Hypercapneic Respiratory Failure Pneumonia Severe Sepsis improving ARDS resolving Acute COPD Exacerbation Lactic Acidosis resolved h/o Lung Cancer - Cont HFNC taper flow rate for comfort, Fio2 to keep Spo2 >90% - BiPAP as needed to assist in work of breathing and overnight - continue antibiotics per ID - continue medrol at current dose - inhaled bronchodilators - cont free water - DVT/GI prophylaxis - LTAC evaluation given cont o2 requirements - continue ICU monitoring for tenuous respiratory status Boerem ACNP critical care time spent in reviewing chart, evaluating patient and formulating plan 35 min
[2018-05-29 10:52] LABS: ANISOCYTOSIS 0; MACROCYTOSIS 0; PLATELET ESTIMATE NORMAL
--- NOTE | 2018-05-29 11:20 | PN ---
Progress Note (short form) - Note Progress Note: remains on high flow oxygen Vital Signs Period Temp Pulse Resp BP Sys/Sawyer Pulse Ox Last 24 Hr 97.8 F-98.9 F 70-112 17-24 112-157/62-94 83-97 blisters on her lips cor-rrr lungs decreased bs at bases abd soft,nt ext no edema CBC, BMP 05/29/18 05:30 05/29/18 05:30 Microbiology 05/19/18 09:00 Nasopharyngeal Aspirate Respiratory Virus (PCR) - Final 05/19/18 08:18 Blood - Peripheral Venous Blood Culture - Final NO GROWTH AFTER 5 DAYS INCUBATION 05/19/18 08:18 Blood - Peripheral Venous Blood Culture - Final NO GROWTH AFTER 5 DAYS INCUBATION 05/19/18 15:09 Sputum - Endotrachea Suction/Ventilator Gram Stain - Final 05/19/18 15:09 Sputum - Endotrachea Suction/Ventilator Sputum Culture - Final Streptococcus Pneumoniae Staphylococcus Aureus 05/19/18 15:09 Urine - Urine - Catheterized Legionella Antigen - Final 05/19/18 15:09 Urine - Urine - Catheterized Streptococcus pneumoniae Antigen (M - Final 05/19/18 08:30 Urine - Urine Clean Catch Urine Culture - Final NO GROWTH OBTAINED cxray bibasilar effusions/infiltrates Current Medications Acetylcysteine (Mucomyst 20 Oral / Inh Use Only*) 400 mg NEB RQID [facility] Last Admin: 05/29/18 07:25 Dose: 400 mg Albuterol Sulfate (Ventolin 0.083% Nebulizer Soln -) 1 amp NEB Q4H PRN PRN Reason: SHORT OF BREATH/WHEEZING Last Admin: 05/25/18 02:45 Dose: 1 amp Albuterol Sulfate (Ventolin 0.083% Nebulizer Soln -) 1 amp NEB RQID [facility] Last Admin: 05/29/18 07:25 Dose: 1 amp Amlodipine Besylate (Norvasc -) 5 mg PO DAILY [facility] Last Admin: 05/29/18 09:29 Dose: 5 mg Budesonide/Formoterol Fumarate (Symbicort 160/4.5mcg -) 2 puff IH BID [facility] Last Admin: 05/28/18 21:24 Dose: 2 puff Chlorhexidine Gluconate (Hibiclens For Decolonization -) 1 applic TP HS [facility] Last Admin: 05/28/18 21:24 Dose: 1 applic Enoxaparin Sodium (Lovenox -) 40 mg SQ DAILY [facility] Last Admin: 05/29/18 09:29 Dose: 40 mg Ceftriaxone Sodium 2 gm/ (Dextrose) 100 mls @ 200 mls/hr IVPB DAILY [facility]; Protocol Last Admin: 05/29/18 09:28 Dose: 200 mls/hr Methylprednisolone Sodium Succinate (Solu-Medrol -) 40 mg IVPUSH BID [facility] Last Admin: 05/29/18 09:29 Dose: 40 mg Nystatin (Nystatin Oral Suspension -) 500,000 units PO Q6HPO [facility] Last Admin: 05/29/18 05:36 Dose: 500,000 units Pantoprazole Sodium (Protonix -) 40 mg PO DAILY [facility] Last Admin: 05/29/18 09:30 Dose: 40 mg imp/reccd pneumococcal pneumonia copd s/p respiratory failure oral hsv continue ceftriaxone add po valtrex Problem List - Problems (1) Acute hypoxemic respiratory failure Code(s): J96.01 - ACUTE RESPIRATORY FAILURE WITH HYPOXIA (2) Bilateral pneumonia Code(s): J18.9 - PNEUMONIA, UNSPECIFIED ORGANISM (3) COPD exacerbation Code(s): J44.1 - CHRONIC OBSTRUCTIVE PULMONARY DISEASE W (ACUTE) EXACERBATION
[2018-05-29] MEDS ORDERED: PT OWN MED DRAWER 7, Y5N ONE ×3 (11:56→21:12)
[2018-05-29] MEDS: BUDESONIDE/FORMETEROL FUMARATE 160/4.5 mcg INHALER IH SCH ×2 (12:01→21:18)
[2018-05-29] MEDS: valACYclovir HCL 500 MG TABLET (FP) PO SCH ×2 (13:42→21:18)
--- NOTE | 2018-05-29 14:31 | PN ---
Teaching Attending Note Name of Resident: Johana Milan ATTENDING PHYSICIAN STATEMENT I saw and evaluated the patient. I reviewed the resident's note and discussed the case with the resident. I agree with the resident's findings and plan as documented. SUBJECTIVE: refused interview and exam again ASSESSMENT AND PLAN: 67 y/o lady with h/o COPD , on home O2, HTN, lung cancer , and breast cancer, who presented with SOB and was found to have acute hypoxic hypercapnic resp failure, s/p extubation now 1- Acute hypoxic hypercapnic resp failure due to COPD exacerbation and PNA . s/ p extubation - continue to need high flow oxygen. bIPAP as needed - breathing treatments - cont symbicort - cont steroids - unfortunately, not able to listen to her chest for comparison 2- Severe sepsis due to Strep PNA: - cont ceftriaxone . Id help appreciated 3- HTN: cont norvasc 4- DVT PX : lovenox GI px: PPI Critical Care Total Critical Care Time (in minutes): 30 Critical Care Statement: The care of this patient involved high complexity decision making to prevent further life threatening deterioration of the patient 's condition and/or to evaluate & treat vital organ system(s) failure or risk of failure.
--- NOTE | 2018-05-29 16:43 | PN ---
Physical Exam: SUBJECTIVE: Patient seen and examined at bedside this morning. Patient expressing her frustration on not understanding why she feels so uncomfortable and just not getting well. She was put on bipap overnight and on high flow this morning. Weaning trials done but with no success. OBJECTIVE: Vital Signs Period Temp Pulse Resp BP Sys/Sawyer Pulse Ox Last 24 Hr 97.8 F-98.9 F 70-112 17-23 112-157/62-100 83-97 GENERAL: Patient is awake, alert, on high flow at 50/60, +accessory muscle use HEAD: Normal with no signs of trauma. HEENT: PERRLA, dry mucous membranes NECK: soft, supple, trachea midline LUNGS: decreased breath sounds bilaterally HEART: Regular rate and rhythm, S1, S2 without murmur, rub or gallop. ABDOMEN: Soft, nontender, nondistended, normoactive bowel sounds EXTREMITIES: 2+ pulses, warm, well-perfused, no edema. Laboratory Results - last 24 hr 05/29/18 05/29/18 05:30 05:30 WBC 17.9 H RBC 4.01 Hgb 10.3 L Hct 34.7 MCV 86.6 MCH 25.6 L MCHC 29.6 L RDW 16.1 H Plt Count 243 MPV 9.1 Absolute Neuts (auto) 17.2 H Neutrophils % 96.1 H Neutrophils % (Manual) 99.0 H Band Neutrophils % 0.0 Lymphocytes % 0.7 L Lymphocytes % (Manual) 0.0 L Monocytes % 2.9 L Monocytes % (Manual) 1 L Eosinophils % 0.0 Eosinophils % (Manual) 0.0 Basophils % 0.3 Basophils % (Manual) 0.0 Myelocytes % (Man) 0 Promyelocytes % (Man) 0 Blast Cells % (Manual) 0 Nucleated RBC % 0 Metamyelocytes 0 Hypochromia 0 Platelet Estimate Normal Polychromasia 0 Poikilocytosis 0 Anisocytosis 0 Microcytosis 0 Macrocytosis 0 Sodium 144 Potassium 4.8 Chloride 103 Carbon Dioxide 40 H Anion Gap 2 L BUN 41 H Creatinine 0.6 Creat Clearance w eGFR > 60 Random Glucose 99 Calcium 8.9 Phosphorus 2.8 Magnesium 2.4 Active Medications Generic Name Dose Route Start Last Admin Trade Name Freq PRN Reason Stop Dose Admin Acetylcysteine 400 mg 05/24/18 20:00 05/29/18 16:36 Mucomyst 20 Oral / Inh Use Only* NEB 400 mg RQID [facility] Administration Albuterol Sulfate 1 amp 05/19/18 11:35 05/25/18 02:45 Ventolin 0.083% Nebulizer Soln - NEB 1 amp Q4H PRN Administration SHORT OF BREATH/WHEEZING Albuterol Sulfate 1 amp 05/25/18 12:00 05/29/18 16:37 Ventolin 0.083% Nebulizer Soln - NEB 1 amp RQID [facility] Administration Amlodipine Besylate 5 mg 05/20/18 10:00 05/29/18 09:29 Norvasc - PO 5 mg DAILY [facility] Administration Budesonide/Formoterol Fumarate 2 puff 05/26/18 22:00 05/29/18 12:01 Symbicort 160/4.5mcg - IH 2 puff BID [facility] Administration Chlorhexidine Gluconate 1 applic 05/19/18 22:00 05/28/18 21:24 Hibiclens For Decolonization - TP 1 applic HS [facility] Administration Enoxaparin Sodium 40 mg 05/21/18 10:00 05/29/18 09:29 Lovenox - SQ 40 mg DAILY [facility] Administration Ceftriaxone Sodium 2 gm/ 100 mls @ 200 mls/hr 05/23/18 14:45 05/29/18 09:28 Dextrose IVPB 200 mls/hr DAILY [facility] Administration Protocol Methylprednisolone Sodium Succinate 40 mg 05/23/18 10:00 05/29/18 09:29 Solu-Medrol - IVPUSH 40 mg BID [facility] Administration Nystatin 500,000 units 05/27/18 18:00 05/29/18 12:00 Nystatin Oral Suspension - PO 500,000 units Q6HPO [facility] Administration Pantoprazole Sodium 40 mg 05/28/18 10:00 05/29/18 09:30 Protonix - PO 40 mg DAILY [facility] Administration Valacyclovir HCl 500 mg 05/29/18 11:30 05/29/18 13:42 Valtrex - PO 500 mg BID [facility] Administration ASSESSMENT/PLAN: Patient is a 67 year old female with past medical history of COPD with hx of intubation, breast and lung CA, perforated ulcer, HTN, presented with worsening shortness of breath with increased sputum production for a few days. #Acute hypoxic respiratory failure:likely 2/2 COPD exacerbation, bilateral pneumonia -s/p extubation. On high flow NC at 50/60 -Duonebs RQID, Albuterol q4h PRN -Mucomyst -IV Methylprednisolone 40mg BID -Resume home Symbicort -ABG, CXR -attempt to wean off HFOT, but patient desaturated -if unable to wean from HFOT, will need transfer to LTAC or consideration of trach #Septic shock likely 2/2 pneumonia: improving -ID (Dr. Roach) consulted. Recommendations appreciated. -Ceftriaxone 2gm daily day 7. -Will need 7-10 days of abx -Urine pneumococcal antigens positive -Sputum cx: S. pneumoniae, S. aureus -Vanc/Zosyn discontinued -Oseltamivir 75mg BID discontinued. #HTN -Continue home Amlodipine 5mg daily -Will continue to monitor BP #FEN -Not on any standing fluids -Electrolytes wnl, routine bmp monitoring -Dysphagia puree diet #Prophylaxis -DVT: Lovenox 40mg sq daily -GI: IV protonix 40mg daily #Disposition -full code -Admit to ICU for closer monitoring Visit type - Emergency Visit Emergency Visit: Yes ED Registration Date: 05/19/18 Care time: The patient presented to the Emergency Department on the above date and was hospitalized for further evaluation of their emergent condition. - New Patient This patient is new to me today: No - Critical Care Critical Care patient: Yes Total Critical Care Time (in minutes): 35 Critical Care Statement: The care of this patient involved high complexity decision making to prevent further life threatening deterioration of the patient 's condition and/or to evaluate & treat vital organ system(s) failure or risk of failure.
[2018-05-29] MEDS: CHLORHEXIDINE GLUCONATE 4% CLEANSER FOR DECOLONIZATION TP SCH (21:18)
[2018-05-30] MEDS: NYSTATIN 500,000 UNITS/5 ML SUSPENSION PO SCH ×4 (06:28→23:49)
[2018-05-30 06:55] LABS: ARTERIAL BLD GAS O2 SATURATION 94.5 % (90-98.9); ARTERIAL BLOOD GAS PCO2 69.7 mmHg (35-45); ARTERIAL BLOOD GAS PO2 73.8 mmHg (80-100); ARTERIAL BLOOD GAS pH 7.38 (7.35-7.45)
[2018-05-30 06:57] LABS: ANION GAP -4 MMOL/L (8-16); BLOOD UREA NITROGEN 42 mg/dL (7-18); CALCIUM 8.8 mg/dL (8.5-10.1); CHLORIDE 104 mmol/L (98-107); CO2 40 mmol/L (21-32); CREATININE 0.5 mg/dL (0.55-1.3); GLUCOSE,RANDOM 105 mg/dL (74-106); MAGNESIUM 2.2 mg/dL (1.8-2.4); PHOSPHOROUS 2.7 mg/dL (2.5-4.9); POTASSIUM 4.5 mmol/L (3.5-5.1); SODIUM 141 mmol/L (136-145)
[2018-05-30] MEDS: ACETYLCYSTEINE 20% 200MG/ML 4 ML VIAL *FOR ORAL / INH USE ONLY NEB SCH ×4 (07:00→20:09)
[2018-05-30] MEDS: ALBUTEROL SO4 0.083% IH SOL 2.5 MG/3 ML VIAL.NEB. NEB SCH ×4 (07:00→20:09)
[2018-05-30 08:10] LABS: HEMATOCRIT 32.2 % (32.4-45.2); HEMOGLOBIN 10.3 GM/dL (10.7-15.3); MCH 27.2 pg (25.7-33.7); MCHC 32.1 g/dl (32.0-36.0); MEAN CELL VOLUME 84.8 fl (80-96); MEAN PLT VOLUME 9.5 fl (7.5-11.1); PLATELET COUNT 257 K/MM3 (134-434); RDW 15.7 % (11.6-15.6)
[2018-05-30] MEDS ORDERED: DEXTROSE 5%-WATER 100 ML IVPB ONE (09:31)
[2018-05-30] MEDS ORDERED: PT OWN MED DRAWER 7, Y5N ONE ×3 (09:32→20:46)
--- NOTE | 2018-05-30 09:36 | PN ---
Progress Note (short form) - Note Progress Note: Subjective: was upset this am , and her breathing became labored. no abd pain, loose stool. no cp . Objective: Vital Signs: Last Vital Signs Temp Pulse Resp BP Pulse Ox 98.2 F 83 20 152/84 98 05/30/18 06:00 05/30/18 06:00 05/30/18 06:00 05/30/18 06:00 05/30/18 07:00 Laboratory Results - last 24 hr 05/29/18 05/30/18 05/30/18 05:30 05:30 05:30 WBC 15.0 H RBC 3.80 Hgb 10.3 L Hct 32.2 L MCV 84.8 MCH 27.2 MCHC 32.1 RDW 15.7 H Plt Count 257 MPV 9.5 Neutrophils % (Manual) 99.0 H Band Neutrophils % 0.0 Lymphocytes % (Manual) 0.0 L Monocytes % (Manual) 1 L Eosinophils % (Manual) 0.0 Basophils % (Manual) 0.0 Myelocytes % (Man) 0 Promyelocytes % (Man) 0 Blast Cells % (Manual) 0 Nucleated RBC % 0 Metamyelocytes 0 Hypochromia 0 Platelet Estimate Normal Polychromasia 0 Poikilocytosis 0 Anisocytosis 0 Microcytosis 0 Macrocytosis 0 Puncture Site ABG pH ABG pCO2 at Pt Temp ABG pO2 at Pt Temp ABG HCO3 ABG O2 Sat (Measured) ABG O2 Content ABG Base Excess Bj Test O2 Delivery Device Oxygen Flow Rate Vent Mode Vent Rate Pressure Support Vent Sodium 141 Potassium 4.5 Chloride 104 Carbon Dioxide 40 H Anion Gap -4 L BUN 42 H Creatinine 0.5 L Creat Clearance w eGFR > 60 Random Glucose 105 Calcium 8.8 Phosphorus 2.7 Magnesium 2.2 05/30/18 06:32 WBC RBC Hgb Hct MCV MCH MCHC RDW Plt Count MPV Neutrophils % (Manual) Band Neutrophils % Lymphocytes % (Manual) Monocytes % (Manual) Eosinophils % (Manual) Basophils % (Manual) Myelocytes % (Man) Promyelocytes % (Man) Blast Cells % (Manual) Nucleated RBC % Metamyelocytes Hypochromia Platelet Estimate Polychromasia Poikilocytosis Anisocytosis Microcytosis Macrocytosis Puncture Site Left brachial ABG pH 7.38 ABG pCO2 at Pt Temp 69.7 H* ABG pO2 at Pt Temp 73.8 L ABG HCO3 40.3 H* ABG O2 Sat (Measured) 94.5 ABG O2 Content 14.0 L ABG Base Excess 13.0 H Bj Test No Result Required. O2 Delivery Device Bipap Oxygen Flow Rate 70% Vent Mode S/t Vent Rate 12 Pressure Support Vent 16/7 Sodium Potassium Chloride Carbon Dioxide Anion Gap BUN Creatinine Creat Clearance w eGFR Random Glucose Calcium Phosphorus Magnesium Physical Exam: NAD , labored breathing. on High flow O2. Cv: Regular rhythm, tachy 1o 107. Lungs: RLL crackles, decreased breath sounds at bases . restricted air entry ext : no edema or erythema. declined abd exam Assessment/Plan: 67 y/o lady with h/o COPD , on home O2, HTN, lung cancer , and breast cancer, who presented with SOB and was found to have acute hypoxic hypercapnic resp failure, s/p extubation now 1- Acute hypoxic hypercapnic resp failure due to COPD exacerbation and PNA . s/ p extubation cxray reviewed. - continue to need high flow oxygen. 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 will d/w day team tomorrow - cont symbicort - cont steroids - no new cx 2- oral herpes : cont valcyclovir 3- Severe sepsis due to Strep PNA: - Abx per ID . - no new cx 4- HTN: cont norvasc 5- DVT PX : lovenox GI px: PPI Visit type - Emergency Visit Emergency Visit: Yes ED Registration Date: 05/19/18 Care time: The patient presented to the Emergency Department on the above date and was hospitalized for further evaluation of their emergent condition. - New Patient This patient is new to me today: No - Critical Care Critical Care patient: Yes Total Critical Care Time (in minutes): 25
[2018-05-30] MEDS: valACYclovir HCL 500 MG TABLET (FP) PO SCH ×2 (09:38→21:02)
[2018-05-30] MEDS: amLODIPine BESYLATE 5 MG TABLET (FP) PO SCH (09:38)
[2018-05-30] MEDS: ENOXAPARIN NA (PORCINE) 40 MG/0.4 ML DISP.SYRIN SQ SCH (09:38)
[2018-05-30] MEDS: PANTOPRAZOLE 40 MG TABLET (FP) PO SCH (10:00)
[2018-05-30] MEDS: BUDESONIDE/FORMETEROL FUMARATE 160/4.5 mcg INHALER IH SCH ×2 (10:00→21:03)
--- NOTE | 2018-05-30 10:01 | PN ---
Progress Note (short form) - Note Progress Note: Seen and examined in the ICU Desaturated to 70%on HFNC 60% requiring increased FiO2 70% used NIPPV overnight Current Medications Acetylcysteine (Mucomyst 20 Oral / Inh Use Only*) 400 mg NEB RQID [facility] Last Admin: 05/30/18 07:00 Dose: 400 mg Albuterol Sulfate (Ventolin 0.083% Nebulizer Soln -) 1 amp NEB Q4H PRN PRN Reason: SHORT OF BREATH/WHEEZING Last Admin: 05/25/18 02:45 Dose: 1 amp Albuterol Sulfate (Ventolin 0.083% Nebulizer Soln -) 1 amp NEB RQID [facility] Last Admin: 05/30/18 07:00 Dose: 1 amp Amlodipine Besylate (Norvasc -) 5 mg PO DAILY [facility] Last Admin: 05/30/18 09:38 Dose: 5 mg Budesonide/Formoterol Fumarate (Symbicort 160/4.5mcg -) 2 puff IH BID [facility] Last Admin: 05/29/18 21:18 Dose: 2 puff Chlorhexidine Gluconate (Hibiclens For Decolonization -) 1 applic TP HS [facility] Last Admin: 05/29/18 21:18 Dose: 1 applic Enoxaparin Sodium (Lovenox -) 40 mg SQ DAILY [facility] Last Admin: 05/30/18 09:38 Dose: 40 mg Ceftriaxone Sodium 2 gm/ (Dextrose) 100 mls @ 200 mls/hr IVPB DAILY [facility]; Protocol Last Admin: 05/29/18 09:28 Dose: 200 mls/hr Methylprednisolone Sodium Succinate (Solu-Medrol -) 40 mg IVPUSH BID [facility] Last Admin: 05/29/18 21:18 Dose: 40 mg Nystatin (Nystatin Oral Suspension -) 500,000 units PO Q6HPO [facility] Last Admin: 05/30/18 06:28 Dose: 500,000 units Pantoprazole Sodium (Protonix -) 40 mg PO DAILY [facility] Last Admin: 05/29/18 09:30 Dose: 40 mg Valacyclovir HCl (Valtrex -) 500 mg PO BID [facility] Last Admin: 05/30/18 09:38 Dose: 500 mg Vital Signs Period Temp Pulse Resp BP Sys/Sawyer Pulse Ox Last 24 Hr 98.1 F-98.8 F 78-120 16-20 128-154/75-100 94-98 Intake & Output 05/27/18 05/28/18 05/29/18 05/30/18 23:59 23:59 23:59 23:59 Intake Total 630 540 220 200 Output Total 800 310 Balance 630 540 -580 -110 Weight 53.637 kg 53.932 kg 53.932 kg 53.116 kg Exam: General: awake and alert w/ mild/mod SOB using accessory muscles Pulm: diminished w/ poor air movement bilateral CV: s1, s2 Abd: SNTND +Bs Ext: WWP +2 pulses no edema Neuro: grossly intact ABG Results ABG pH 7.38 (7.35-7.45) 05/30/18 06:32 ABG pCO2 at Pt Temp 69.7 mmHg (35-45) H* 05/30/18 06:32 ABG pO2 at Pt Temp 73.8 mmHg (80-100) L 05/30/18 06:32 ABG HCO3 40.3 meq/L (22-26) H* 05/30/18 06:32 ABG O2 Sat (Measured) 94.5 % (90-98.9) 05/30/18 06:32 ABG O2 Content 14.0 % vol (15-22) L 05/30/18 06:32 ABG Base Excess 13.0 meq/l (-2-2) H 05/30/18 06:32 CBC, BMP 05/30/18 05:30 05/30/18 05:30 CXR: hyperinflated, cont to have LLL consilidation. unchanged from previous ASSESSMENT AND PLAN: Acute on Chronic Hypoxic and Hypercapneic Respiratory Failure Pneumonia Severe Sepsis improving ARDS resolving Acute COPD Exacerbation Lactic Acidosis resolved h/o Lung Cancer - Cont HFNC taper flow rate for comfort, Fio2 to keep Spo2 >90% - BiPAP as needed to assist in work of breathing and overnight - continue antibiotics per ID - continue medrol at current dose - inhaled bronchodilators - cont free water - DVT/GI prophylaxis - LTAC evaluation given cont o2 requirements - continue ICU monitoring for tenuous respiratory status Boerem ACNP critical care time spent in reviewing chart, evaluating patient and formulating plan 35 min
--- NOTE | 2018-05-30 10:36 | PN ---
Progress Note (short form) - Note Progress Note: remains on high flow oxygen alert reports mouth lesions improved Vital Signs Period Temp Pulse Resp BP Sys/Sawyer Pulse Ox Last 24 Hr 98.1 F-98.8 F 78-120 16-20 128-154/75-100 94-98 no thrush multiple sores on her lips- drying cor-rrr lungs distatnt breath sounds, decreased bs at bases abd soft,nt ext no edema CBC, BMP 05/30/18 05:30 05/30/18 05:30 Microbiology 05/19/18 09:00 Nasopharyngeal Aspirate Respiratory Virus (PCR) - Final 05/19/18 08:18 Blood - Peripheral Venous Blood Culture - Final NO GROWTH AFTER 5 DAYS INCUBATION 05/19/18 08:18 Blood - Peripheral Venous Blood Culture - Final NO GROWTH AFTER 5 DAYS INCUBATION 05/19/18 15:09 Sputum - Endotrachea Suction/Ventilator Gram Stain - Final 05/19/18 15:09 Sputum - Endotrachea Suction/Ventilator Sputum Culture - Final Streptococcus Pneumoniae Staphylococcus Aureus 05/19/18 15:09 Urine - Urine - Catheterized Legionella Antigen - Final 05/19/18 15:09 Urine - Urine - Catheterized Streptococcus pneumoniae Antigen (M - Final 05/19/18 08:30 Urine - Urine Clean Catch Urine Culture - Final NO GROWTH OBTAINED cxray bibasilar effusions/infiltrates Current Medications Acetylcysteine (Mucomyst 20 Oral / Inh Use Only*) 400 mg NEB RQID [facility] Last Admin: 05/30/18 07:00 Dose: 400 mg Albuterol Sulfate (Ventolin 0.083% Nebulizer Soln -) 1 amp NEB Q4H PRN PRN Reason: SHORT OF BREATH/WHEEZING Last Admin: 05/25/18 02:45 Dose: 1 amp Albuterol Sulfate (Ventolin 0.083% Nebulizer Soln -) 1 amp NEB RQID [facility] Last Admin: 05/30/18 07:00 Dose: 1 amp Amlodipine Besylate (Norvasc -) 5 mg PO DAILY [facility] Last Admin: 05/30/18 09:38 Dose: 5 mg Budesonide/Formoterol Fumarate (Symbicort 160/4.5mcg -) 2 puff IH BID [facility] Last Admin: 05/29/18 21:18 Dose: 2 puff Chlorhexidine Gluconate (Hibiclens For Decolonization -) 1 applic TP HS [facility] Last Admin: 05/29/18 21:18 Dose: 1 applic Enoxaparin Sodium (Lovenox -) 40 mg SQ DAILY [facility] Last Admin: 05/30/18 09:38 Dose: 40 mg Ceftriaxone Sodium 2 gm/ (Dextrose) 100 mls @ 200 mls/hr IVPB DAILY [facility]; Protocol Last Admin: 05/29/18 09:28 Dose: 200 mls/hr Methylprednisolone Sodium Succinate (Solu-Medrol -) 40 mg IVPUSH BID [facility] Last Admin: 05/29/18 21:18 Dose: 40 mg Nystatin (Nystatin Oral Suspension -) 500,000 units PO Q6HPO [facility] Last Admin: 05/30/18 06:28 Dose: 500,000 units Pantoprazole Sodium (Protonix -) 40 mg PO DAILY [facility] Last Admin: 05/29/18 09:30 Dose: 40 mg Valacyclovir HCl (Valtrex -) 500 mg PO BID [facility] Last Admin: 05/30/18 09:38 Dose: 500 mg imp/reccd pneumococcal pneumonia copd s/p respiratory failure oral hsv continue ceftriaxone day #10- would treat 14 days continue po valtrex Problem List - Problems (1) Acute hypoxemic respiratory failure Code(s): J96.01 - ACUTE RESPIRATORY FAILURE WITH HYPOXIA (2) Bilateral pneumonia Code(s): J18.9 - PNEUMONIA, UNSPECIFIED ORGANISM (3) COPD exacerbation Code(s): J44.1 - CHRONIC OBSTRUCTIVE PULMONARY DISEASE W (ACUTE) EXACERBATION
[2018-05-30] MEDS: methylPREDNISolone NA SUCC 40 MG/1 ML VIAL IVPUSH SCH ×2 (12:00→21:02)
[2018-05-30] MEDS: CEFTRIAXONE 2 GM in DEXTROSE 5%-WATER 100 ML IVPB SCH (12:00)
[2018-05-30] MEDS: CHLORHEXIDINE GLUCONATE 4% CLEANSER FOR DECOLONIZATION TP SCH (21:02)
[2018-05-31] MEDS: NYSTATIN 500,000 UNITS/5 ML SUSPENSION PO SCH ×4 (05:38→23:47)
[2018-05-31 06:04] LABS: HEMATOCRIT 32.8 % (32.4-45.2); HEMOGLOBIN 10.1 GM/dL (10.7-15.3); MCH 26.1 pg (25.7-33.7); MCHC 30.8 g/dl (32.0-36.0); MEAN CELL VOLUME 84.9 fl (80-96); MEAN PLT VOLUME 9.4 fl (7.5-11.1); PLATELET COUNT 250 K/MM3 (134-434); RBC 3.87 M/mm3 (3.60-5.2); RDW 15.5 % (11.6-15.6); WHITE BLOOD COUNT 12.2 K/mm3 (4.0-10.0)
[2018-05-31 06:26] LABS: ANION GAP 3 MMOL/L (8-16); BLOOD UREA NITROGEN 40 mg/dL (7-18); CALCIUM 8.7 mg/dL (8.5-10.1); CHLORIDE 102 mmol/L (98-107); CO2 41 mmol/L (21-32); CREATININE 0.5 mg/dL (0.55-1.3); GLUCOSE,RANDOM 98 mg/dL (74-106); MAGNESIUM 2.3 mg/dL (1.8-2.4); PHOSPHOROUS 3.1 mg/dL (2.5-4.9); POTASSIUM 4.6 mmol/L (3.5-5.1); SODIUM 145 mmol/L (136-145)
[2018-05-31 06:58] LABS: ARTERIAL BLD GAS O2 SATURATION 92.8 % (90-98.9); ARTERIAL BLOOD GAS BASE EXCESS 13.7 meq/l (-2-2); ARTERIAL BLOOD GAS PCO2 64.3 mmHg (35-45); ARTERIAL BLOOD GAS PO2 66.8 mmHg (80-100); ARTERIAL BLOOD GAS pH 7.41 (7.35-7.45)
[2018-05-31 07:17] LABS: ALLENS TEST POSITIVE
[2018-05-31] MEDS: ACETYLCYSTEINE 20% 200MG/ML 4 ML VIAL *FOR ORAL / INH USE ONLY NEB SCH ×4 (07:25→20:36)
[2018-05-31] MEDS: ALBUTEROL SO4 0.083% IH SOL 2.5 MG/3 ML VIAL.NEB. NEB SCH ×4 (07:25→20:37)
--- NOTE | 2018-05-31 10:38 | PN ---
Progress Note, ROR ENGINEER - Note Progress Note: Unable to tolerate Hi-zaid this am. Still on BIPAP.Alert. Diet not upgraded- Pt on dys puree/thin per orders. Defer diet upgrade aT THIS TIME. IMP:Insufficient nutritional intake per EMR- Goal of care regarding nutrition? Pt is a full code. Pt requesting no soy/dairy, not accepting PO supplements (Ensure Clear) as they all have soy/dairy Seen over the weekend by RD -Pt willing to try magic cup REC: Very careful PO intake or defer PO intake when pt is SOB. Aspiration precautions Small Bites, Chin Tuck/Down, Trial Feedings, Safe Rate, 1/2 tsp. at a time, Elevate HOB during feed, 1./2 tsp at a time. single sips,. Monitor tolerance. Feed slowly. Assist with meals.
[2018-05-31] MEDS ORDERED: PT OWN MED DRAWER 7, Y5N ONE ×2 (10:48→20:44)
[2018-05-31] MEDS ORDERED: DEXTROSE 5%-WATER 100 ML IVPB ONE (10:49)
[2018-05-31] MEDS: PANTOPRAZOLE 40 MG TABLET (FP) PO SCH (10:55)
[2018-05-31] MEDS: ENOXAPARIN NA (PORCINE) 40 MG/0.4 ML DISP.SYRIN SQ SCH (10:55)
[2018-05-31] MEDS: amLODIPine BESYLATE 5 MG TABLET (FP) PO SCH (10:55)
[2018-05-31] MEDS: methylPREDNISolone NA SUCC 40 MG/1 ML VIAL IVPUSH SCH ×2 (10:56→21:05)
[2018-05-31] MEDS: CEFTRIAXONE 2 GM in DEXTROSE 5%-WATER 100 ML IVPB SCH (10:56)
[2018-05-31] MEDS: valACYclovir HCL 500 MG TABLET (FP) PO SCH ×2 (10:57→21:05)
[2018-05-31] MEDS: BUDESONIDE/FORMETEROL FUMARATE 160/4.5 mcg INHALER IH SCH ×2 (10:57→21:05)
--- NOTE | 2018-05-31 12:05 | PN ---
Teaching Attending Note Name of Resident: Favio Carreon ATTENDING PHYSICIAN STATEMENT I saw and evaluated the patient. I reviewed the resident's note and discussed the case with the resident. I agree with the resident's findings and plan as documented. SUBJECTIVE: Patient seen and examined in the ICU. Did not tolerate HFOT and now back on NIPPV. Anxious. Still with some congested cough, but better. No CP. No hemoptysis. OBJECTIVE: Intake & Output 05/28/18 05/29/18 05/30/18 05/31/18 23:59 23:59 23:59 23:59 Intake Total 540 220 400 360 Output Total 800 910 Balance 540 -580 -510 360 Weight 118 lb 14.4 oz 118 lb 14.4 oz 117 lb 1.6 oz 117 lb 1 oz Last Vital Signs Temp Pulse Resp BP Pulse Ox 97.8 F 92 H 17 155/90 94 L 05/31/18 06:00 05/31/18 08:30 05/31/18 08:30 05/31/18 08:30 05/31/18 08:24 Active Medications Acetylcysteine (Mucomyst 20 Oral / Inh Use Only*) 400 mg NEB RQID [facility] Last Admin: 05/31/18 07:25 Dose: 400 mg Albuterol Sulfate (Ventolin 0.083% Nebulizer Soln -) 1 amp NEB Q4H PRN PRN Reason: SHORT OF BREATH/WHEEZING Last Admin: 05/25/18 02:45 Dose: 1 amp Albuterol Sulfate (Ventolin 0.083% Nebulizer Soln -) 1 amp NEB RQID [facility] Last Admin: 05/31/18 07:25 Dose: 1 amp Amlodipine Besylate (Norvasc -) 5 mg PO DAILY [facility] Last Admin: 05/31/18 10:55 Dose: 5 mg Budesonide/Formoterol Fumarate (Symbicort 160/4.5mcg -) 2 puff IH BID [facility] Last Admin: 05/31/18 10:57 Dose: 2 puff Chlorhexidine Gluconate (Hibiclens For Decolonization -) 1 applic TP HS [facility] Last Admin: 05/30/18 21:02 Dose: 1 applic Enoxaparin Sodium (Lovenox -) 40 mg SQ DAILY [facility] Last Admin: 05/31/18 10:55 Dose: 40 mg Ceftriaxone Sodium 2 gm/ (Dextrose) 100 mls @ 200 mls/hr IVPB DAILY [facility]; Protocol Last Admin: 05/31/18 10:56 Dose: 200 mls/hr Methylprednisolone Sodium Succinate (Solu-Medrol -) 40 mg IVPUSH BID [facility] Last Admin: 05/31/18 10:56 Dose: 40 mg Nystatin (Nystatin Oral Suspension -) 500,000 units PO Q6HPO [facility] Last Admin: 05/31/18 05:38 Dose: 500,000 units Pantoprazole Sodium (Protonix -) 40 mg PO DAILY [facility] Last Admin: 05/31/18 10:55 Dose: 40 mg Valacyclovir HCl (Valtrex -) 500 mg PO BID [facility] Last Admin: 05/31/18 10:57 Dose: 500 mg Gen: Awake and alert, mildly tachypneic on NIPPV Heart: RRR Lung: distant breath sounds, no wheezes Abd: soft, nontender Ext: no edema Laboratory Results - last 24 hr 05/31/18 05/31/18 05/31/18 05:15 05:15 06:41 WBC 12.2 H RBC 3.87 Hgb 10.1 L Hct 32.8 MCV 84.9 MCH 26.1 MCHC 30.8 L RDW 15.5 Plt Count 250 MPV 9.4 Puncture Site Left radial ABG pH 7.41 ABG pCO2 at Pt Temp 64.3 H* ABG pO2 at Pt Temp 66.8 L ABG HCO3 40.1 H* ABG O2 Sat (Measured) 92.8 ABG O2 Content 12.5 L ABG Base Excess 13.7 H Bj Test Positive O2 Delivery Device Bipap Oxygen Flow Rate 70% Vent Rate 12 Mechanical Rate Bipap PEEP 7.0 Pressure Support Vent 16 Sodium 145 Potassium 4.6 Chloride 102 Carbon Dioxide 41 H Anion Gap 3 L BUN 40 H Creatinine 0.5 L Creat Clearance w eGFR > 60 Random Glucose 98 Calcium 8.7 Phosphorus 3.1 Magnesium 2.3 ASSESSMENT AND PLAN: Acute on Chronic Hypoxic and Hypercapneic Respiratory Failure Pneumonia Severe Sepsis improving ARDS resolving Acute COPD Exacerbation Lactic Acidosis resolved h/o Lung Cancer - taper flow rate, Fio2 to keep Spo2 >90% - NIPPV as needed to assist in work of breathing - continue antibiotics - Medrol taper - inhaled bronchodilators - DVT/GI prophylaxis - LTAC evaluation - continue ICU monitoring for tenuous respiratory status - Will D/W patient and family further goals: Intubation & Trach versus LTAC Dr Harris Critical care time spent in reviewing chart, evaluating patient and formulating plan 35 min
--- NOTE | 2018-05-31 13:36 | PN ---
Teaching Attending Note Name of Resident: Lore Vega ATTENDING PHYSICIAN STATEMENT I saw and evaluated the patient. I reviewed the resident's note and discussed the case with the resident. I agree with the resident's findings and plan as documented. SUBJECTIVE: nO SOB on BIPAP . no fever or chills, had BM, . feels depressed . OBJECTIVE: NAD ,comfortable on BIPAP Cv: Regular rhythm Lungs: improved air entry compared to yesterday . n wheezes , decreased breath sounds at bases Ext : no edema or erythema. Abd: soft, NT, ND , NL BS Assessment/Plan: 67 y/o lady with h/o COPD , on home O2, HTN, lung cancer , and breast cancer, who presented with SOB and was found to have acute hypoxic hypercapnic resp failure, s/p extubation now 1- Acute hypoxic hypercapnic resp failure due to COPD exacerbation and PNA . 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 d/w Dr. Manley - cont symbicort - cont steroids - cont ceftriaxone day 03/31 2- oral herpes : cont valcyclovir 3- Severe sepsis due to Strep PNA: - Abx03/31 4- HTN: cont norvasc 5- DVT PX: lovenox GI px: PPI Critical Care Total Critical Care Time (in minutes): 30 Critical Care Statement: The care of this patient involved high complexity decision making to prevent further life threatening deterioration of the patient 's condition and/or to evaluate & treat vital organ system(s) failure or risk of failure.
--- NOTE | 2018-05-31 14:50 | PN ---
Physical Exam: SUBJECTIVE: Patient seen and examined at bedside. Required NIPPV overnight. No other acute issues or complaints overnight. Denies CP, ECHEVARRIA, palpitations, abdominal pain, nausea or vomiting. OBJECTIVE: Vital Signs Period Temp Pulse Resp BP Sys/Sawyer Pulse Ox Last 24 Hr 97.6 F-98.6 F 80-105 15-26 102-162/69-98 90-97 GENERAL: A&Ox3, NAD HEAD: NC/AT EYES: PERRLA, EOMI ENT: MMM NECK: Trachea midline, no JVD or LAD LUNGS: reduced wheezing/crackles, limited inspiratory effort HEART: RRR no m/r/g ABDOMEN: +bs, soft, NT, ND EXTREMITIES: 2+ pulses, warm, well-perfused, no edema. 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, motor, sensory systems w/o focal deficit PSYCH: normal mood and affect SKIN: Warm, dry, normal turgor Laboratory Results - last 24 hr 05/31/18 05/31/18 05/31/18 05:15 05:15 06:41 WBC 12.2 H RBC 3.87 Hgb 10.1 L Hct 32.8 MCV 84.9 MCH 26.1 MCHC 30.8 L RDW 15.5 Plt Count 250 MPV 9.4 Puncture Site Left radial ABG pH 7.41 ABG pCO2 at Pt Temp 64.3 H* ABG pO2 at Pt Temp 66.8 L ABG HCO3 40.1 H* ABG O2 Sat (Measured) 92.8 ABG O2 Content 12.5 L ABG Base Excess 13.7 H Jb Test Positive O2 Delivery Device Bipap Oxygen Flow Rate 70% Vent Rate 12 Mechanical Rate Bipap PEEP 7.0 Pressure Support Vent 16 Sodium 145 Potassium 4.6 Chloride 102 Carbon Dioxide 41 H Anion Gap 3 L BUN 40 H Creatinine 0.5 L Creat Clearance w eGFR > 60 Random Glucose 98 Calcium 8.7 Phosphorus 3.1 Magnesium 2.3 Active Medications Generic Name Dose Route Start Last Admin Trade Name Freq PRN Reason Stop Dose Admin Acetylcysteine 400 mg 05/24/18 20:00 05/31/18 11:30 Mucomyst 20 Oral / Inh Use Only* NEB 400 mg RQID [facility] Administration Albuterol Sulfate 1 amp 05/19/18 11:35 05/25/18 02:45 Ventolin 0.083% Nebulizer Soln - NEB 1 amp Q4H PRN Administration SHORT OF BREATH/WHEEZING Albuterol Sulfate 1 amp 05/25/18 12:00 05/31/18 11:30 Ventolin 0.083% Nebulizer Soln - NEB 1 amp RQID [facility] Administration Amlodipine Besylate 5 mg 05/20/18 10:00 05/31/18 10:55 Norvasc - PO 5 mg DAILY [facility] Administration Budesonide/Formoterol Fumarate 2 puff 05/26/18 22:00 05/31/18 10:57 Symbicort 160/4.5mcg - IH 2 puff BID [facility] Administration Chlorhexidine Gluconate 1 applic 05/19/18 22:00 05/30/18 21:02 Hibiclens For Decolonization - TP 1 applic HS [facility] Administration Enoxaparin Sodium 40 mg 05/21/18 10:00 05/31/18 10:55 Lovenox - SQ 40 mg DAILY [facility] Administration Ceftriaxone Sodium 2 gm/ 100 mls @ 200 mls/hr 05/23/18 14:45 05/31/18 10:56 Dextrose IVPB 200 mls/hr DAILY [facility] Administration Protocol Methylprednisolone Sodium Succinate 40 mg 05/23/18 10:00 05/31/18 10:56 Solu-Medrol - IVPUSH 40 mg BID [facility] Administration Nystatin 500,000 units 05/27/18 18:00 05/31/18 13:18 Nystatin Oral Suspension - PO 500,000 units Q6HPO [facility] Administration Pantoprazole Sodium 40 mg 05/28/18 10:00 05/31/18 10:55 Protonix - PO 40 mg DAILY [facility] Administration Valacyclovir HCl 500 mg 05/29/18 11:30 05/31/18 10:57 Valtrex - PO 500 mg BID [facility] Administration ASSESSMENT/PLAN: 67 y/o F w/ PMHx COPD on 2L O2, breast and lung Ca, perforated ulcer, prior intubation, p/w lethargy, SOB, increased WOB, found to have b/l infiltrates on CXR. Decompensated and underwent intubation and RIJ central line placement. In ICU in septic shock w/ acute on chronic respiratory failure 2/2 PNA. I have had an extensive conversation with her in which I explained to him the inability to wean her oxygen requirements. I explained to him the option of possible LTAC vs. Trach. He would like to explore the LTAC options. I answered all of his questions to the best of my knowledge. I have placed a call to [facility] at [place]. #pulmonary -NIPPV; not able to tolerate hi flow O2 today. -solumedrol 40 BID -bronchodilators standing and PRN -mucomyst -chest PT -ABG likely at baseline -f/u ABG, CXR -if unable to wean from HFOT, will need transfer to LTAC or consideration of trach #CV -maintaining MAP off pressors #ID -ID following -urine pneumococcal antigens positive -sputum culture positive for S pneumo and S aureus -cont Ceftriaxone (day 6, day 8 overall of ABx), further ABx as per ID #functional -PT consulted -OOB w/ PT #FEN -no IVF -monitor and correct electrolytes -dysphagia puree w/ thin liquids #PPx -DVT: Lovenox subq -GI: IV PTX #code -full #dispo -continue to monitor in ICU Visit type - Emergency Visit Emergency Visit: Yes ED Registration Date: 05/19/18 Care time: The patient presented to the Emergency Department on the above date and was hospitalized for further evaluation of their emergent condition. - New Patient This patient is new to me today: Yes Date on this admission: 05/31/18 - Critical Care Critical Care patient: Yes Total Critical Care Time (in minutes): 32 Critical Care Statement: The care of this patient involved high complexity decision making to prevent further life threatening deterioration of the patient 's condition and/or to evaluate & treat vital organ system(s) failure or risk of failure.
--- NOTE | 2018-05-31 15:42 | PN ---
Physical Exam: SUBJECTIVE: Patient seen and examined at bedside this morning. Patient feeling depressed and anxious about her situation. prison options of LTAC vs trach was discussed with her. Patient not tolerating HFOT today. Would use it to eat, but would go back to bipap. Bipap settings: 30/11//70%. OBJECTIVE: Vital Signs Period Temp Pulse Resp BP Sys/Sawyer Pulse Ox Last 24 Hr 97.6 F-98.6 F 80-108 15-26 102-162/69-99 90-97 GENERAL: Patient is awake, alert, on bipap, +accessory muscle use HEAD: Normal with no signs of trauma. HEENT: PERRLA, dry mucous membranes NECK: soft, supple, trachea midline LUNGS: decreased breath sounds bilaterally HEART: Regular rate and rhythm, S1, S2 without murmur, rub or gallop. ABDOMEN: Soft, nontender, nondistended, normoactive bowel sounds EXTREMITIES: 2+ pulses, warm, well-perfused, no edema. Laboratory Results - last 24 hr 05/31/18 05/31/18 05/31/18 05:15 05:15 06:41 WBC 12.2 H RBC 3.87 Hgb 10.1 L Hct 32.8 MCV 84.9 MCH 26.1 MCHC 30.8 L RDW 15.5 Plt Count 250 MPV 9.4 Puncture Site Left radial ABG pH 7.41 ABG pCO2 at Pt Temp 64.3 H* ABG pO2 at Pt Temp 66.8 L ABG HCO3 40.1 H* ABG O2 Sat (Measured) 92.8 ABG O2 Content 12.5 L ABG Base Excess 13.7 H Bj Test Positive O2 Delivery Device Bipap Oxygen Flow Rate 70% Vent Rate 12 Mechanical Rate Bipap PEEP 7.0 Pressure Support Vent 16 Sodium 145 Potassium 4.6 Chloride 102 Carbon Dioxide 41 H Anion Gap 3 L BUN 40 H Creatinine 0.5 L Creat Clearance w eGFR > 60 Random Glucose 98 Calcium 8.7 Phosphorus 3.1 Magnesium 2.3 Active Medications Generic Name Dose Route Start Last Admin Trade Name Freq PRN Reason Stop Dose Admin Acetylcysteine 400 mg 05/24/18 20:00 05/31/18 11:30 Mucomyst 20 Oral / Inh Use Only* NEB 400 mg RQID [facility] Administration Albuterol Sulfate 1 amp 05/19/18 11:35 05/25/18 02:45 Ventolin 0.083% Nebulizer Soln - NEB 1 amp Q4H PRN Administration SHORT OF BREATH/WHEEZING Albuterol Sulfate 1 amp 05/25/18 12:00 05/31/18 11:30 Ventolin 0.083% Nebulizer Soln - NEB 1 amp RQID [facility] Administration Amlodipine Besylate 5 mg 05/20/18 10:00 05/31/18 10:55 Norvasc - PO 5 mg DAILY [facility] Administration Budesonide/Formoterol Fumarate 2 puff 05/26/18 22:00 05/31/18 10:57 Symbicort 160/4.5mcg - IH 2 puff BID [facility] Administration Chlorhexidine Gluconate 1 applic 05/19/18 22:00 05/30/18 21:02 Hibiclens For Decolonization - TP 1 applic HS [facility] Administration Enoxaparin Sodium 40 mg 05/21/18 10:00 05/31/18 10:55 Lovenox - SQ 40 mg DAILY [facility] Administration Ceftriaxone Sodium 2 gm/ 100 mls @ 200 mls/hr 05/23/18 14:45 05/31/18 10:56 Dextrose IVPB 200 mls/hr DAILY [facility] Administration Protocol Methylprednisolone Sodium Succinate 40 mg 05/23/18 10:00 05/31/18 10:56 Solu-Medrol - IVPUSH 40 mg BID [facility] Administration Nystatin 500,000 units 05/27/18 18:00 05/31/18 13:18 Nystatin Oral Suspension - PO 500,000 units Q6HPO [facility] Administration Pantoprazole Sodium 40 mg 05/28/18 10:00 05/31/18 10:55 Protonix - PO 40 mg DAILY [facility] Administration Valacyclovir HCl 500 mg 05/29/18 11:30 05/31/18 10:57 Valtrex - PO 500 mg BID [facility] Administration ASSESSMENT/PLAN: Patient is a 67 year old female with past medical history of COPD with hx of intubation, breast and lung CA, perforated ulcer, HTN, presented with worsening shortness of breath with increased sputum production for a few days. #Acute hypoxic respiratory failure:likely 2/2 COPD exacerbation, bilateral pneumonia -s/p extubation. On bipap/HFOT -Duonebs RQID, Albuterol q4h PRN -Mucomyst -IV Methylprednisolone 40mg BID -Resume home Symbicort -ABG, CXR -unable to wean from HFOT, will need transfer to LTAC or consideration of trach -Social work in the case, patient and have chosen LTAC #Septic shock likely 2/2 pneumonia: improving -ID (Dr. Roach) consulted. Recommendations appreciated. -Ceftriaxone 2gm daily day 10. -Will complete 14 days of abx -Urine pneumococcal antigens positive -Sputum cx: S. pneumoniae, S. aureus -Vanc/Zosyn discontinued #Oral herpes -Valacyclovir 500mg BID #HTN -Continue home Amlodipine 5mg daily -Will continue to monitor BP #FEN -Not on any standing fluids -Electrolytes wnl, routine bmp monitoring -Dysphagia puree diet #Prophylaxis -DVT: Lovenox 40mg sq daily -GI: IV protonix 40mg daily #Disposition -full code -Admit to ICU for closer monitoring Visit type - Emergency Visit Emergency Visit: Yes ED Registration Date: 05/19/18 Care time: The patient presented to the Emergency Department on the above date and was hospitalized for further evaluation of their emergent condition. - New Patient This patient is new to me today: No - Critical Care Critical Care patient: Yes Total Critical Care Time (in minutes): 40 Critical Care Statement: The care of this patient involved high complexity decision making to prevent further life threatening deterioration of the patient 's condition and/or to evaluate & treat vital organ system(s) failure or risk of failure.
--- NOTE | 2018-05-31 16:37 | PN ---
Progress Note (short form) - Note Progress Note: back on bipap alot of brown secretions Vital Signs Period Temp Pulse Resp BP Sys/Sawyer Pulse Ox Last 24 Hr 97.6 F-98.6 F 80-108 15-26 102-162/69-99 90-97 cor-rrr lungs decreased bs at bases abd soft,nt ext no edema CBC, BMP 05/31/18 05:15 05/31/18 05:15 Microbiology 05/19/18 09:00 Nasopharyngeal Aspirate Respiratory Virus (PCR) - Final 05/19/18 08:18 Blood - Peripheral Venous Blood Culture - Final NO GROWTH AFTER 5 DAYS INCUBATION 05/19/18 08:18 Blood - Peripheral Venous Blood Culture - Final NO GROWTH AFTER 5 DAYS INCUBATION 05/19/18 15:09 Sputum - Endotrachea Suction/Ventilator Gram Stain - Final 05/19/18 15:09 Sputum - Endotrachea Suction/Ventilator Sputum Culture - Final Streptococcus Pneumoniae Staphylococcus Aureus 05/19/18 15:09 Urine - Urine - Catheterized Legionella Antigen - Final 05/19/18 15:09 Urine - Urine - Catheterized Streptococcus pneumoniae Antigen (M - Final 05/19/18 08:30 Urine - Urine Clean Catch Urine Culture - Final NO GROWTH OBTAINED Current Medications Acetylcysteine (Mucomyst 20 Oral / Inh Use Only*) 400 mg NEB RQID [facility] Last Admin: 05/31/18 16:25 Dose: 400 mg Albuterol Sulfate (Ventolin 0.083% Nebulizer Soln -) 1 amp NEB Q4H PRN PRN Reason: SHORT OF BREATH/WHEEZING Last Admin: 05/25/18 02:45 Dose: 1 amp Albuterol Sulfate (Ventolin 0.083% Nebulizer Soln -) 1 amp NEB RQID [facility] Last Admin: 05/31/18 16:25 Dose: 1 amp Amlodipine Besylate (Norvasc -) 5 mg PO DAILY [facility] Last Admin: 05/31/18 10:55 Dose: 5 mg Budesonide/Formoterol Fumarate (Symbicort 160/4.5mcg -) 2 puff IH BID [facility] Last Admin: 05/31/18 10:57 Dose: 2 puff Chlorhexidine Gluconate (Hibiclens For Decolonization -) 1 applic TP HS [facility] Last Admin: 05/30/18 21:02 Dose: 1 applic Enoxaparin Sodium (Lovenox -) 40 mg SQ DAILY [facility] Last Admin: 05/31/18 10:55 Dose: 40 mg Ceftriaxone Sodium 2 gm/ (Dextrose) 100 mls @ 200 mls/hr IVPB DAILY [facility]; Protocol Last Admin: 05/31/18 10:56 Dose: 200 mls/hr Methylprednisolone Sodium Succinate (Solu-Medrol -) 40 mg IVPUSH BID [facility] Last Admin: 05/31/18 10:56 Dose: 40 mg Nystatin (Nystatin Oral Suspension -) 500,000 units PO Q6HPO [facility] Last Admin: 05/31/18 13:18 Dose: 500,000 units Pantoprazole Sodium (Protonix -) 40 mg PO DAILY [facility] Last Admin: 05/31/18 10:55 Dose: 40 mg Valacyclovir HCl (Valtrex -) 500 mg PO BID [facility] Last Admin: 05/31/18 10:57 Dose: 500 mg cxray unchanged imp/reccd pneumococcal pneumonia copd s/p respiratory failure oral hsv continue ceftriaxone day #11- would treat 14 days continue po valtrex Problem List - Problems (1) Acute hypoxemic respiratory failure Code(s): J96.01 - ACUTE RESPIRATORY FAILURE WITH HYPOXIA (2) Bilateral pneumonia Code(s): J18.9 - PNEUMONIA, UNSPECIFIED ORGANISM (3) COPD exacerbation Code(s): J44.1 - CHRONIC OBSTRUCTIVE PULMONARY DISEASE W (ACUTE) EXACERBATION
[2018-05-31] MEDS ORDERED: traZODone HCL 50 MG TABLET (FP) PO ONE (21:00)
[2018-05-31] MEDS: CHLORHEXIDINE GLUCONATE 4% CLEANSER FOR DECOLONIZATION TP SCH (21:05)
[2018-06-01] MEDS: NYSTATIN 500,000 UNITS/5 ML SUSPENSION PO SCH ×3 (05:47→18:16)
[2018-06-01 06:31] LABS: BASO % 0.3 % (0-2.0); EOS % 0.4 % (0-4.5); HEMATOCRIT 35.8 % (32.4-45.2); MCH 26.1 pg (25.7-33.7); MCHC 30.7 g/dl (32.0-36.0); MEAN CELL VOLUME 85.1 fl (80-96); MEAN PLT VOLUME 9.9 fl (7.5-11.1); NEUT % 94.3 % (42.8-82.8); PLATELET COUNT 260 K/MM3 (134-434); RBC 4.21 M/mm3 (3.60-5.2); RDW 15.7 % (11.6-15.6); WHITE BLOOD COUNT 12.9 K/mm3 (4.0-10.0)
[2018-06-01 06:53] LABS: ALBUMIN 2.8 g/dl (3.4-5.0); ALK PHOS 46 U/L (45-117); ANION GAP 3 MMOL/L (8-16); BILIRUBIN,TOTAL 0.5 mg/dL (0.2-1); BLOOD UREA NITROGEN 38 mg/dL (7-18); CALCIUM 9.1 mg/dL (8.5-10.1); CHLORIDE 100 mmol/L (98-107); CO2 40 mmol/L (21-32); CREATININE 0.6 mg/dL (0.55-1.3); GLUCOSE,RANDOM 107 mg/dL (74-106); POTASSIUM 4.7 mmol/L (3.5-5.1); SGOT/AST 18 U/L (15-37); SGPT/ALT 16 U/L (13-61); SODIUM 143 mmol/L (136-145); TOT PROT 6.1 g/dl (6.4-8.2)
[2018-06-01] MEDS ORDERED: DEXTROSE 5%-WATER 100 ML IVPB ONE (08:08)
[2018-06-01 08:39] LABS: MAGNESIUM 2.3 mg/dL (1.8-2.4); PHOSPHOROUS 3.3 mg/dL (2.5-4.9)
[2018-06-01] MEDS: ALBUTEROL SO4 0.083% IH SOL 2.5 MG/3 ML VIAL.NEB. NEB SCH ×4 (08:45→20:00)
[2018-06-01] MEDS: ACETYLCYSTEINE 20% 200MG/ML 4 ML VIAL *FOR ORAL / INH USE ONLY NEB SCH ×4 (08:45→20:00)
[2018-06-01] MEDS: PANTOPRAZOLE 40 MG TABLET (FP) PO SCH (09:38)
[2018-06-01] MEDS: CEFTRIAXONE 2 GM in DEXTROSE 5%-WATER 100 ML IVPB SCH (09:38)
[2018-06-01] MEDS: amLODIPine BESYLATE 5 MG TABLET (FP) PO SCH (09:38)
[2018-06-01] MEDS: methylPREDNISolone NA SUCC 40 MG/1 ML VIAL IVPUSH SCH ×2 (09:38→22:44)
[2018-06-01] MEDS: ENOXAPARIN NA (PORCINE) 40 MG/0.4 ML DISP.SYRIN SQ SCH (09:39)
[2018-06-01] MEDS: valACYclovir HCL 500 MG TABLET (FP) PO SCH ×2 (09:42→22:44)
[2018-06-01] MEDS ORDERED: PT OWN MED DRAWER 7, Y5N ONE ×2 (09:42→22:13)
[2018-06-01] MEDS: BUDESONIDE/FORMETEROL FUMARATE 160/4.5 mcg INHALER IH SCH ×2 (09:45→22:44)
[2018-06-01 10:51] LABS: ANISOCYTOSIS 0; MACROCYTOSIS 0; PLATELET ESTIMATE NORMAL; TARGET CELLS 1+
--- NOTE | 2018-06-01 11:58 | PN ---
Teaching Attending Note Name of Resident: Lore Vega ATTENDING PHYSICIAN STATEMENT I saw and evaluated the patient. I reviewed the resident's note and discussed the case with the resident. I agree with the resident's findings and plan as documented. SUBJECTIVE: declined interview and exam. ASSESSMENT AND PLAN 67 y/o lady with h/o COPD , on home O2, HTN, lung cancer , and breast cancer, who presented with SOB and was found to have acute hypoxic hypercapnic resp failure, s/p extubation now 1- Acute hypoxic hypercapnic resp failure due to COPD exacerbation and PNA. 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 - cont symbicort - cont steroids - cont ceftriaxone day 04/30 2- Oral herpes : cont valcyclovir 3- Severe / 4- HTN: cont norvasc 5- DVT PX: lovenox GI px: PPI to be evaluated by LTAC personal banking representative today . will follow with NIYA
--- NOTE | 2018-06-01 11:58 | PN ---
Progress Note, COMPENSATION/BENEFITS SPECIALIST - Note Progress Note: Selected Entries 05/29/18 05/30/18 05/30/18 10:08 04:00 06:00 Breakfast 25% Lunch Temperature 98.1 F 98.2 F 05/30/18 05/30/18 05/30/18 10:00 14:00 15:50 Breakfast Lunch 25% Temperature 98.0 F 98.8 F 05/30/18 05/31/18 05/31/18 22:00 02:00 06:00 Breakfast Lunch Temperature 98.6 F 97.6 F 97.8 F 05/31/18 06/01/18 06/01/18 10:27 02:00 06:00 Breakfast 0 Lunch Temperature 98.6 F 98 F 06/01/18 06/01/18 08:02 10:00 Breakfast Lunch 0 Temperature 98.8 F Laboratory Tests 05/28/18 05/29/18 05/30/18 05:30 05:30 05:30 WBC 21.1 H 17.9 H 15.0 H 05/31/18 06/01/18 05:15 05:30 WBC 12.2 H 12.9 H On Steroids. BIPAP this am, pending Hi-zaid trial/ lunch this am. Pt on dys puree/thin Reviewed case with staff concerning indication for trach vs rehab at LTACH/ PEG ? with Insufficient nutritional intake REC: Magic cup Very careful PO intake or defer PO intake when pt is SOB. Aspiration precautions Small Bites, Chin Tuck/Down, Trial Feedings, Safe Rate, 1/2 tsp. at a time, Elevate HOB during feed, 1./2 tsp at a time. single sips,. Monitor tolerance. Feed slowly. Assist with meals.
--- NOTE | 2018-06-01 12:34 | PN ---
Teaching Attending Note Name of Resident: Lily Ernst ATTENDING PHYSICIAN STATEMENT I saw and evaluated the patient. I reviewed the resident's note and discussed the case with the resident. I agree with the resident's findings and plan as documented. SUBJECTIVE: Patient seen and examined in the ICU. Decompensated on HF OT and now requiring NIPPV. Still with some congested cough, but better. No CP. No hemoptysis. OBJECTIVE: Intake & Output 05/29/18 05/30/18 05/31/18 06/01/18 23:59 23:59 23:59 23:59 Intake Total 220 400 960 200 Output Total 800 910 400 Balance -580 -510 960 -200 Weight 118 lb 14.4 oz 117 lb 1.6 oz 117 lb 1 oz 110 lb 5 oz Last Vital Signs Temp Pulse Resp BP Pulse Ox 98.8 F 113 H 20 145/99 98 06/01/18 10:00 06/01/18 12:00 06/01/18 12:00 06/01/18 12:00 06/01/18 09:00 Active Medications Acetylcysteine (Mucomyst 20 Oral / Inh Use Only*) 400 mg NEB RQID [facility] Last Admin: 06/01/18 08:45 Dose: 400 mg Albuterol Sulfate (Ventolin 0.083% Nebulizer Soln -) 1 amp NEB Q4H PRN PRN Reason: SHORT OF BREATH/WHEEZING Last Admin: 05/25/18 02:45 Dose: 1 amp Albuterol Sulfate (Ventolin 0.083% Nebulizer Soln -) 1 amp NEB RQID [facility] Last Admin: 06/01/18 08:45 Dose: 1 amp Amlodipine Besylate (Norvasc -) 5 mg PO DAILY [facility] Last Admin: 06/01/18 09:38 Dose: 5 mg Budesonide/Formoterol Fumarate (Symbicort 160/4.5mcg -) 2 puff IH BID [facility] Last Admin: 06/01/18 09:45 Dose: 2 puff Chlorhexidine Gluconate (Hibiclens For Decolonization -) 1 applic TP HS [facility] Last Admin: 05/31/18 21:05 Dose: 1 applic Enoxaparin Sodium (Lovenox -) 40 mg SQ DAILY [facility] Last Admin: 06/01/18 09:39 Dose: 40 mg Ceftriaxone Sodium 2 gm/ (Dextrose) 100 mls @ 200 mls/hr IVPB DAILY [facility]; Protocol Last Admin: 06/01/18 09:38 Dose: 200 mls/hr Methylprednisolone Sodium Succinate (Solu-Medrol -) 40 mg IVPUSH BID [facility] Last Admin: 06/01/18 09:38 Dose: 40 mg Nystatin (Nystatin Oral Suspension -) 500,000 units PO Q6HPO [facility] Last Admin: 06/01/18 05:47 Dose: 500,000 units Pantoprazole Sodium (Protonix -) 40 mg PO DAILY [facility] Last Admin: 06/01/18 09:38 Dose: 40 mg Valacyclovir HCl (Valtrex -) 500 mg PO BID [facility] Last Admin: 06/01/18 09:42 Dose: 500 mg Gen: Awake and alert, mildly tachypneic on NIPPV Heart: RRR Lung: distant breath sounds, no wheezes Abd: soft, nontender Ext: no edema Laboratory Results - last 24 hr 06/01/18 06/01/18 05:30 05:30 WBC 12.9 H RBC 4.21 Hgb 11.0 Hct 35.8 MCV 85.1 MCH 26.1 MCHC 30.7 L RDW 15.7 H Plt Count 260 MPV 9.9 Absolute Neuts (auto) 12.2 H Neutrophils % 94.3 H Neutrophils % (Manual) 98.0 H Band Neutrophils % 0.0 Lymphocytes % 1.0 L D Lymphocytes % (Manual) 0.0 L Monocytes % 4.0 Monocytes % (Manual) 2 L D Eosinophils % 0.4 D Eosinophils % (Manual) 0.0 Basophils % 0.3 Basophils % (Manual) 0.0 Myelocytes % (Man) 0 Promyelocytes % (Man) 0 Blast Cells % (Manual) 0 Nucleated RBC % 0 Metamyelocytes 0 Hypochromia 1+ Platelet Estimate Normal Polychromasia 1+ Poikilocytosis 0 Anisocytosis 0 Microcytosis 0 Macrocytosis 0 Target Cells 1+ Schistocytes 1+ Sodium 143 Potassium 4.7 Chloride 100 Carbon Dioxide 40 H Anion Gap 3 L BUN 38 H Creatinine 0.6 Creat Clearance w eGFR > 60 Random Glucose 107 H Calcium 9.1 Phosphorus 3.3 Magnesium 2.3 Total Bilirubin 0.5 AST 18 ALT 16 Alkaline Phosphatase 46 Total Protein 6.1 L Albumin 2.8 L ASSESSMENT AND PLAN: Acute on Chronic Hypoxic and Hypercapneic Respiratory Failure Pneumonia Severe Sepsis improving ARDS resolving Acute COPD Exacerbation Lactic Acidosis resolved h/o Lung Cancer - taper flow rate, Fio2 to keep Spo2 >90% - BiPAP as needed to assist in work of breathing - continue antibiotics - continue medrol at current dose - inhaled bronchodilators - increase free water - DVT/GI prophylaxis - LTAC evaluation - continue ICU monitoring for tenuous respiratory status Dr Harris Critical care time spent in reviewing chart, evaluating patient and formulating plan 35 min
--- NOTE | 2018-06-01 15:10 | PN ---
Physical Exam: SUBJECTIVE: Patient seen and examined at bedside this morning. Patient remained to be on bipap overnight as she could not tolerate HFOT. Bipap settings: 16/7//60%. OBJECTIVE: Vital Signs Period Temp Pulse Resp BP Sys/Sawyer Pulse Ox Last 24 Hr 97.9 F-98.8 F 77-113 15-20 117-146/80-99 95-98 GENERAL: Patient is awake, alert, on bipap, +accessory muscle use HEAD: Normal with no signs of trauma. HEENT: PERRLA, dry mucous membranes NECK: soft, supple, trachea midline LUNGS: decreased breath sounds bilaterally HEART: Regular rate and rhythm, S1, S2 without murmur, rub or gallop. ABDOMEN: Soft, nontender, nondistended, normoactive bowel sounds EXTREMITIES: 2+ pulses, warm, well-perfused, no edema. Laboratory Results - last 24 hr 06/01/18 06/01/18 05:30 05:30 WBC 12.9 H RBC 4.21 Hgb 11.0 Hct 35.8 MCV 85.1 MCH 26.1 MCHC 30.7 L RDW 15.7 H Plt Count 260 MPV 9.9 Absolute Neuts (auto) 12.2 H Neutrophils % 94.3 H Neutrophils % (Manual) 98.0 H Band Neutrophils % 0.0 Lymphocytes % 1.0 L D Lymphocytes % (Manual) 0.0 L Monocytes % 4.0 Monocytes % (Manual) 2 L D Eosinophils % 0.4 D Eosinophils % (Manual) 0.0 Basophils % 0.3 Basophils % (Manual) 0.0 Myelocytes % (Man) 0 Promyelocytes % (Man) 0 Blast Cells % (Manual) 0 Nucleated RBC % 0 Metamyelocytes 0 Hypochromia 1+ Platelet Estimate Normal Polychromasia 1+ Poikilocytosis 0 Anisocytosis 0 Microcytosis 0 Macrocytosis 0 Target Cells 1+ Schistocytes 1+ Sodium 143 Potassium 4.7 Chloride 100 Carbon Dioxide 40 H Anion Gap 3 L BUN 38 H Creatinine 0.6 Creat Clearance w eGFR > 60 Random Glucose 107 H Calcium 9.1 Phosphorus 3.3 Magnesium 2.3 Total Bilirubin 0.5 AST 18 ALT 16 Alkaline Phosphatase 46 Total Protein 6.1 L Albumin 2.8 L Active Medications Generic Name Dose Route Start Last Admin Trade Name Freq PRN Reason Stop Dose Admin Acetylcysteine 400 mg 05/24/18 20:00 06/01/18 12:11 Mucomyst 20 Oral / Inh Use Only* NEB 400 mg RQID [facility] Administration Albuterol Sulfate 1 amp 05/19/18 11:35 05/25/18 02:45 Ventolin 0.083% Nebulizer Soln - NEB 1 amp Q4H PRN Administration SHORT OF BREATH/WHEEZING Albuterol Sulfate 1 amp 05/25/18 12:00 06/01/18 12:11 Ventolin 0.083% Nebulizer Soln - NEB 1 amp RQID [facility] Administration Amlodipine Besylate 5 mg 05/20/18 10:00 06/01/18 09:38 Norvasc - PO 5 mg DAILY [facility] Administration Budesonide/Formoterol Fumarate 2 puff 05/26/18 22:00 06/01/18 09:45 Symbicort 160/4.5mcg - IH 2 puff BID [facility] Administration Chlorhexidine Gluconate 1 applic 05/19/18 22:00 05/31/18 21:05 Hibiclens For Decolonization - TP 1 applic HS [facility] Administration Enoxaparin Sodium 40 mg 05/21/18 10:00 06/01/18 09:39 Lovenox - SQ 40 mg DAILY [facility] Administration Ceftriaxone Sodium 2 gm/ 100 mls @ 200 mls/hr 05/23/18 14:45 06/01/18 09:38 Dextrose IVPB 200 mls/hr DAILY [facility] Administration Protocol Methylprednisolone Sodium Succinate 40 mg 05/23/18 10:00 06/01/18 09:38 Solu-Medrol - IVPUSH 40 mg BID [facility] Administration Nystatin 500,000 units 05/27/18 18:00 06/01/18 05:47 Nystatin Oral Suspension - PO 500,000 units Q6HPO [facility] Administration Pantoprazole Sodium 40 mg 05/28/18 10:00 06/01/18 09:38 Protonix - PO 40 mg DAILY [facility] Administration Valacyclovir HCl 500 mg 05/29/18 11:30 06/01/18 09:42 Valtrex - PO 500 mg BID [facility] Administration ASSESSMENT/PLAN: Patient is a 67 year old female with past medical history of COPD with hx of intubation, breast and lung CA, perforated ulcer, HTN, presented with worsening shortness of breath with increased sputum production for a few days. #Acute hypoxic respiratory failure:likely 2/2 COPD exacerbation, bilateral pneumonia -s/p extubation. On bipap/HFOT -Duonebs RQID, Albuterol q4h PRN -Mucomyst -IV Methylprednisolone 40mg BID -Resume home Symbicort -ABG, CXR -Social work in the case, patient and have chosen LTACH in [place] in [place] -Patient accepted. Insurance authorization pending. #Septic shock likely 2/2 pneumonia: improving -ID (Dr. Roach) consulted. Recommendations appreciated. -Ceftriaxone 2gm daily day 04/30. -Urine pneumococcal antigens positive -Sputum cx: S. pneumoniae, S. aureus -Vanc/Zosyn discontinued #Oral herpes -Valacyclovir 500mg BID #HTN -Continue home Amlodipine 5mg daily -Will continue to monitor BP #FEN -Not on any standing fluids -Electrolytes wnl, routine bmp monitoring -Dysphagia puree diet #Prophylaxis -DVT: Lovenox 40mg sq daily -GI: IV protonix 40mg daily #Disposition -full code -Admit to ICU for closer monitoring Visit type - Emergency Visit Emergency Visit: Yes ED Registration Date: 05/19/18 Care time: The patient presented to the Emergency Department on the above date and was hospitalized for further evaluation of their emergent condition. - New Patient This patient is new to me today: No - Critical Care Critical Care patient: Yes Total Critical Care Time (in minutes): 40 Critical Care Statement: The care of this patient involved high complexity decision making to prevent further life threatening deterioration of the patient 's condition and/or to evaluate & treat vital organ system(s) failure or risk of failure.
--- NOTE | 2018-06-01 16:48 | PN ---
Physical Exam: SUBJECTIVE: Patient seen and examined this morning at bedside. Unable to tolerate HFOT overnight and was placed back on NIPPV. Otherwise no new complaints. Denies any fevers, chills, chest pain, nausea, vomiting, diarrhea, constipation. OBJECTIVE: Vital Signs Period Temp Pulse Resp BP Sys/Sawyer Pulse Ox Last 24 Hr 97.9 F-98.8 F 77-113 15-20 117-146/80-99 94-98 GENERAL: A&Ox3, NAD, sitting with HOB elevated HEAD: NCAT EYES: PERRL, EOMI ENT: Oropharynx clear without exudates, moist mucous membranes. NECK: No JVD LUNGS: Diminished breath sounds at the bases HEART: Regular rate and rhythm, S1, S2 without murmur ABDOMEN: Soft, nontender, nondistended, + bowel sounds, no guarding EXTREMITIES: 2+ pulses, no edema. NEUROLOGICAL: Cranial nerves II through XII grossly intact. Normal speech SKIN: Warm, dry Laboratory Results - last 24 hr 06/01/18 06/01/18 05:30 05:30 WBC 12.9 H RBC 4.21 Hgb 11.0 Hct 35.8 MCV 85.1 MCH 26.1 MCHC 30.7 L RDW 15.7 H Plt Count 260 MPV 9.9 Absolute Neuts (auto) 12.2 H Neutrophils % 94.3 H Neutrophils % (Manual) 98.0 H Band Neutrophils % 0.0 Lymphocytes % 1.0 L D Lymphocytes % (Manual) 0.0 L Monocytes % 4.0 Monocytes % (Manual) 2 L D Eosinophils % 0.4 D Eosinophils % (Manual) 0.0 Basophils % 0.3 Basophils % (Manual) 0.0 Myelocytes % (Man) 0 Promyelocytes % (Man) 0 Blast Cells % (Manual) 0 Nucleated RBC % 0 Metamyelocytes 0 Hypochromia 1+ Platelet Estimate Normal Polychromasia 1+ Poikilocytosis 0 Anisocytosis 0 Microcytosis 0 Macrocytosis 0 Target Cells 1+ Schistocytes 1+ Sodium 143 Potassium 4.7 Chloride 100 Carbon Dioxide 40 H Anion Gap 3 L BUN 38 H Creatinine 0.6 Creat Clearance w eGFR > 60 Random Glucose 107 H Calcium 9.1 Phosphorus 3.3 Magnesium 2.3 Total Bilirubin 0.5 AST 18 ALT 16 Alkaline Phosphatase 46 Total Protein 6.1 L Albumin 2.8 L Microbiology 05/19/18 09:00 Nasopharyngeal Aspirate Respiratory Virus (PCR) - Final 05/19/18 08:18 Blood - Peripheral Venous Blood Culture - Final NO GROWTH AFTER 5 DAYS INCUBATION 05/19/18 08:18 Blood - Peripheral Venous Blood Culture - Final NO GROWTH AFTER 5 DAYS INCUBATION 05/19/18 15:09 Sputum - Endotrachea Suction/Ventilator Gram Stain - Final 05/19/18 15:09 Sputum - Endotrachea Suction/Ventilator Sputum Culture - Final Streptococcus Pneumoniae Staphylococcus Aureus 05/19/18 15:09 Urine - Urine - Catheterized Legionella Antigen - Final 05/19/18 15:09 Urine - Urine - Catheterized Streptococcus pneumoniae Antigen (M - Final 05/19/18 08:30 Urine - Urine Clean Catch Urine Culture - Final NO GROWTH OBTAINED Active Medications Acetylcysteine (Mucomyst 20 Oral / Inh Use Only*) 400 mg NEB RQID [facility] Last Admin: 06/01/18 15:52 Dose: 400 mg Albuterol Sulfate (Ventolin 0.083% Nebulizer Soln -) 1 amp NEB Q4H PRN PRN Reason: SHORT OF BREATH/WHEEZING Last Admin: 05/25/18 02:45 Dose: 1 amp Albuterol Sulfate (Ventolin 0.083% Nebulizer Soln -) 1 amp NEB RQID [facility] Last Admin: 06/01/18 15:53 Dose: 1 amp Amlodipine Besylate (Norvasc -) 5 mg PO DAILY [facility] Last Admin: 06/01/18 09:38 Dose: 5 mg Budesonide/Formoterol Fumarate (Symbicort 160/4.5mcg -) 2 puff IH BID [facility] Last Admin: 06/01/18 09:45 Dose: 2 puff Chlorhexidine Gluconate (Hibiclens For Decolonization -) 1 applic TP HS [facility] Last Admin: 05/31/18 21:05 Dose: 1 applic Enoxaparin Sodium (Lovenox -) 40 mg SQ DAILY [facility] Last Admin: 06/01/18 09:39 Dose: 40 mg Ceftriaxone Sodium 2 gm/ (Dextrose) 100 mls @ 200 mls/hr IVPB DAILY [facility]; Protocol Last Admin: 06/01/18 09:38 Dose: 200 mls/hr Methylprednisolone Sodium Succinate (Solu-Medrol -) 40 mg IVPUSH BID [facility] Last Admin: 06/01/18 09:38 Dose: 40 mg Nystatin (Nystatin Oral Suspension -) 500,000 units PO Q6HPO [facility] Last Admin: 06/01/18 15:40 Dose: 500,000 units Pantoprazole Sodium (Protonix -) 40 mg PO DAILY [facility] Last Admin: 06/01/18 09:38 Dose: 40 mg Valacyclovir HCl (Valtrex -) 500 mg PO BID [facility] Last Admin: 06/01/18 09:42 Dose: 500 mg ASSESSMENT/PLAN: 67 y/o F with PMHx COPD (on 2L O2), breast and lung Ca, perforated ulcer, prior intubation admitted to ICU in septic shock with acute on chronic respiratory failure 2/2 PNA. #Pulmonary Acute on Chronic Hypoxic and Hypercapneic Respiratory Failure -Likely due to Acute COPD exacerbation, bilateral pneumonia -s/p extubation (on 05/25) -Unable to tolerate HFOT overnight, Placed on NIPPV; Settings: 16///60% -Continue Solumedrol 40mg BID, Albeuterol QID and PRN, Symbicort, Acetylcysteine -Chest PT -ABG pending for AM -CXR: Since 05/30/18, the bilateral pulmonary and pleural changes persist with evidence of previous right surgery. There is also previous mediastinal surgery. -If unable to wean from HFOT, Family would like to explore possible LTAC options #Cardio HTN -Continue Home dose Amlodipine -Maintaining MAP off pressors #ID Severe Sepsis, Improving -Likely due to b/l PNA -ID (Dr. Roach) Consulted -Urine Pneumococcal antigen positive -Sputum cx positive for S pneumo and S aureus -RSV, Blood cx, Urine cx negative -Started Abx on 05/19; Continue Ceftriaxone (Started on 05/23) Oral Herpes -Continue Valacyclovir 500mg PO BID #Neuro -A&Ox3, No Active problems -Continue to monitor -PT consulted -OOB w/ PT #FEN -PO Fluids -Continue to monitor for Hypernatremia -Dysphagia puree w/ thin liquids, Magic Cup, No Soy products #PPx -DVT: Lovenox -GI: Protonix #Code Status -Full Code Dispo: continue to monitor in ICU, Pending LTAC placement Visit type - Emergency Visit Emergency Visit: Yes ED Registration Date: 05/19/18 Care time: The patient presented to the Emergency Department on the above date and was hospitalized for further evaluation of their emergent condition. - New Patient This patient is new to me today: Yes Date on this admission: 06/01/18 - Critical Care Critical Care patient: Yes Total Critical Care Time (in minutes): 40 Critical Care Statement: The care of this patient involved high complexity decision making to prevent further life threatening deterioration of the patient 's condition and/or to evaluate & treat vital organ system(s) failure or risk of failure.
--- NOTE | 2018-06-01 17:57 | PN ---
Progress Note (short form) - Note Progress Note: back on bipap Vital Signs Period Temp Pulse Resp BP Sys/Sawyer Pulse Ox Last 24 Hr 97.9 F-98.8 F 77-113 15-20 113-146/80-99 94-98 cor-rrr lungs decreased bs at bases abd soft,nt ext no edema CBC, BMP 06/01/18 05:30 06/01/18 05:30 Microbiology 05/19/18 09:00 Nasopharyngeal Aspirate Respiratory Virus (PCR) - Final 05/19/18 08:18 Blood - Peripheral Venous Blood Culture - Final NO GROWTH AFTER 5 DAYS INCUBATION 05/19/18 08:18 Blood - Peripheral Venous Blood Culture - Final NO GROWTH AFTER 5 DAYS INCUBATION 05/19/18 15:09 Sputum - Endotrachea Suction/Ventilator Gram Stain - Final 05/19/18 15:09 Sputum - Endotrachea Suction/Ventilator Sputum Culture - Final Streptococcus Pneumoniae Staphylococcus Aureus 05/19/18 15:09 Urine - Urine - Catheterized Legionella Antigen - Final 05/19/18 15:09 Urine - Urine - Catheterized Streptococcus pneumoniae Antigen (M - Final 05/19/18 08:30 Urine - Urine Clean Catch Urine Culture - Final NO GROWTH OBTAINED cxray unchanged imp/reccd pneumococcal pneumonia copd s/p respiratory failure oral hsv continue ceftriaxone day #12- would treat 14 days continue po valtrex finish 7 days please call back if needed Problem List - Problems (1) Acute hypoxemic respiratory failure Code(s): J96.01 - ACUTE RESPIRATORY FAILURE WITH HYPOXIA (2) Bilateral pneumonia Code(s): J18.9 - PNEUMONIA, UNSPECIFIED ORGANISM (3) COPD exacerbation Code(s): J44.1 - CHRONIC OBSTRUCTIVE PULMONARY DISEASE W (ACUTE) EXACERBATION
[2018-06-01] MEDS ORDERED: traZODone HCL 50 MG TABLET (FP) PO ONE (19:57)
[2018-06-01] MEDS: CHLORHEXIDINE GLUCONATE 4% CLEANSER FOR DECOLONIZATION TP SCH (22:44)
[2018-06-02] MEDS: NYSTATIN 500,000 UNITS/5 ML SUSPENSION PO SCH ×4 (00:10→18:30)
[2018-06-02 06:16] LABS: ARTERIAL BLD GAS O2 SATURATION 89.7 % (90-98.9); ARTERIAL BLOOD GAS BASE EXCESS 10.6 meq/l (-2-2); ARTERIAL BLOOD GAS PO2 61.6 mmHg (80-100); ARTERIAL BLOOD GAS pH 7.37 (7.35-7.45)
[2018-06-02 06:22] LABS: ALLENS TEST POSITIVE
[2018-06-02 06:23] LABS: ARTERIAL BLOOD GAS PCO2 66.5 mmHg (35-45)
[2018-06-02 06:30] LABS: BASO % 0.2 % (0-2.0); HEMOGLOBIN 10.8 GM/dL (10.7-15.3); LYMPH % 0.5 % (8-40); MCH 27.2 pg (25.7-33.7); MCHC 31.9 g/dl (32.0-36.0); MEAN CELL VOLUME 85.5 fl (80-96); MEAN PLT VOLUME 9.5 fl (7.5-11.1); MONO % 2.2 % (3.8-10.2); NEUT % 97.1 % (42.8-82.8); PLATELET COUNT 250 K/MM3 (134-434); RBC 3.98 M/mm3 (3.60-5.2); RDW 15.6 % (11.6-15.6); WHITE BLOOD COUNT 15.2 K/mm3 (4.0-10.0)
[2018-06-02 06:43] LABS: ALBUMIN 2.7 g/dl (3.4-5.0); ALK PHOS 42 U/L (45-117); ANION GAP 2 MMOL/L (8-16); BILIRUBIN,TOTAL 0.4 mg/dL (0.2-1); BLOOD UREA NITROGEN 38 mg/dL (7-18); CALCIUM 8.7 mg/dL (8.5-10.1); CHLORIDE 105 mmol/L (98-107); CO2 38 mmol/L (21-32); CREATININE 0.5 mg/dL (0.55-1.3); GLUCOSE,RANDOM 101 mg/dL (74-106); PHOSPHOROUS 3.3 mg/dL (2.5-4.9); POTASSIUM 4.4 mmol/L (3.5-5.1); SGOT/AST 12 U/L (15-37); SGPT/ALT 14 U/L (13-61); SODIUM 145 mmol/L (136-145); TOT PROT 5.7 g/dl (6.4-8.2)
[2018-06-02] MEDS ORDERED: DEXTROSE 5%-WATER 100 ML IVPB ONE (07:36)
[2018-06-02] MEDS: ACETYLCYSTEINE 20% 200MG/ML 4 ML VIAL *FOR ORAL / INH USE ONLY NEB SCH ×4 (08:15→20:35)
[2018-06-02] MEDS: BUDESONIDE/FORMETEROL FUMARATE 160/4.5 mcg INHALER IH SCH ×2 (10:25→22:05)
[2018-06-02] MEDS: CEFTRIAXONE 2 GM in DEXTROSE 5%-WATER 100 ML IVPB SCH (10:25)
[2018-06-02] MEDS: valACYclovir HCL 500 MG TABLET (FP) PO SCH ×2 (10:25→22:05)
[2018-06-02] MEDS: PANTOPRAZOLE 40 MG TABLET (FP) PO SCH (10:26)
[2018-06-02] MEDS: ENOXAPARIN NA (PORCINE) 40 MG/0.4 ML DISP.SYRIN SQ SCH (10:27)
[2018-06-02] MEDS: methylPREDNISolone NA SUCC 40 MG/1 ML VIAL IVPUSH SCH ×2 (10:30→22:04)
[2018-06-02 11:39] LABS: ACANTHOCYTES 0; ANISOCYTOSIS 0; HELMET CELLS 0; HOWELL-JOLLY BODIES 0; MACROCYTOSIS 0; OVALOCYTE 0; PLATELET ESTIMATE NORMAL; ROULEAU 0; SICKELED CELLS 0; TARGET CELLS 0; TEAR DROP CELLS 0; TOXIC GRANULATION 0
[2018-06-02] MEDS: amLODIPine BESYLATE 5 MG TABLET (FP) PO SCH (11:42)
--- NOTE | 2018-06-02 12:18 | PN ---
Teaching Attending Note Name of Resident: Regina Clark ATTENDING PHYSICIAN STATEMENT I saw and evaluated the patient. I reviewed the resident's note and discussed the case with the resident. I agree with the resident's findings and plan as documented. SUBJECTIVE: Pt seen and examined in the ICU. Remains on BiPAP alternating with HFOT. Breathing slowly improving. No significant cough or wheezing. OBJECTIVE: Vital Signs Period Temp Pulse Resp BP Sys/Sawyer Pulse Ox Last 24 Hr 97.1 F-98.5 F 90-113 17-21 113-146/73-94 93-95 Intake & Output 05/30/18 05/31/18 06/01/18 06/02/18 23:59 23:59 23:59 23:59 Intake Total 400 960 400 150 Output Total 910 600 Balance -510 960 -200 150 Weight 53.116 kg 53.099 kg 50.037 kg 51.057 kg Gen: tachypneic on BiPAP Heart: RRR Lung: distant breath sounds Abd: soft, nontender Ext: no edema CBC, BMP 06/02/18 05:30 06/02/18 05:30 Active Medications Acetylcysteine (Mucomyst 20 Oral / Inh Use Only*) 400 mg NEB RQID [facility] Last Admin: 06/02/18 08:15 Dose: Not Given Albuterol Sulfate (Ventolin 0.083% Nebulizer Soln -) 1 amp NEB Q4H PRN PRN Reason: SHORT OF BREATH/WHEEZING Last Admin: 05/25/18 02:45 Dose: 1 amp Amlodipine Besylate (Norvasc -) 5 mg PO DAILY [facility] Last Admin: 06/02/18 11:42 Dose: 5 mg Budesonide/Formoterol Fumarate (Symbicort 160/4.5mcg -) 2 puff IH BID [facility] Last Admin: 06/02/18 10:25 Dose: 2 puff Chlorhexidine Gluconate (Hibiclens For Decolonization -) 1 applic TP HS [facility] Last Admin: 06/01/18 22:44 Dose: 1 applic Enoxaparin Sodium (Lovenox -) 40 mg SQ DAILY [facility] Last Admin: 06/02/18 10:27 Dose: 40 mg Methylprednisolone Sodium Succinate (Solu-Medrol -) 40 mg IVPUSH BID [facility] Last Admin: 06/02/18 10:30 Dose: 40 mg Nystatin (Nystatin Oral Suspension -) 500,000 units PO Q6HPO [facility] Last Admin: 06/02/18 11:45 Dose: 500,000 units Pantoprazole Sodium (Protonix -) 40 mg PO DAILY [facility] Last Admin: 06/02/18 10:26 Dose: 40 mg Valacyclovir HCl (Valtrex -) 500 mg PO BID [facility] Last Admin: 06/02/18 10:25 Dose: 500 mg ASSESSMENT AND PLAN: Acute on Chronic Hypoxic and Hypercapneic Respiratory Failure Pneumonia Severe Sepsis improving ARDS resolving Acute COPD Exacerbation Lactic Acidosis resolved h/o Lung Cancer - taper flow rate, Fio2 to keep Spo2 >90% - BiPAP as needed to assist in work of breathing - continue antibiotics - continue medrol at current dose - inhaled bronchodilators - DVT/GI prophylaxis - continue ICU monitoring for tenuous respiratory status - for LTAC placement critical care time spent in reviewing chart, evaluating patient and formulating plan 35 min
--- NOTE | 2018-06-02 12:44 | PN ---
Progress Note, [facility] - Note Progress Note: Case reviewed with staff.Nursing providing pt's food preferences within guidelines of dietary order eg magic cup, oatmeal. Pt predominantly on BIPAP, tolerating high flow for short periods, at which time she is fed with aspiration precautions maintained. Pending possible transfer to LTACH.
--- NOTE | 2018-06-02 14:29 | PN ---
Teaching Attending Note Name of Resident: Lore Vega ATTENDING PHYSICIAN STATEMENT I saw and evaluated the patient. I reviewed the resident's note and discussed the case with the resident. I agree with the resident's findings and plan as documented. SUBJECTIVE: Patient is in ICU continue to Bipap, patient is unable to be weaned off the Bipap. OBJECTIVE: Vital Signs Temperature 98.5 F 06/02/18 10:00 Pulse Rate 105 H 06/02/18 12:00 Respiratory Rate 20 06/02/18 12:00 Blood Pressure 151/90 06/02/18 12:00 O2 Sat by Pulse Oximetry (%) 93 L 06/02/18 10:00 GENERAL: Patient is awake, alert, on bipap, positive for accessory muscle use HEAD: Normal with no signs of trauma. HEENT: PERRLA, dry mucous membranes NECK: soft, supple, trachea midline LUNGS: decreased breath sounds bilaterally HEART: Regular rate and rhythm, S1, S2 without murmur, rub or gallop. ABDOMEN: Soft, nontender, nondistended, normoactive bowel sounds EXTREMITIES: 2+ pulses, warm, well-perfused, no edema. CBCD WBC 15.2 K/mm3 (4.0-10.0) H 06/02/18 05:30 RBC 3.98 M/mm3 (3.60-5.2) 06/02/18 05:30 Hgb 10.8 GM/dL (10.7-15.3) 06/02/18 05:30 Hct 34.0 % (32.4-45.2) 06/02/18 05:30 MCV 85.5 fl (80-96) 06/02/18 05:30 MCHC 31.9 g/dl (32.0-36.0) L 06/02/18 05:30 RDW 15.6 % (11.6-15.6) 06/02/18 05:30 Plt Count 250 K/MM3 (134-434) 06/02/18 05:30 MPV 9.5 fl (7.5-11.1) 06/02/18 05:30 CMP Sodium 145 mmol/L (136-145) 06/02/18 05:30 Potassium 4.4 mmol/L (3.5-5.1) 06/02/18 05:30 Chloride 105 mmol/L (98-107) 06/02/18 05:30 Carbon Dioxide 38 mmol/L (21-32) H 06/02/18 05:30 Anion Gap 2 MMOL/L (8-16) L 06/02/18 05:30 BUN 38 mg/dL (7-18) H 06/02/18 05:30 Creatinine 0.5 mg/dL (0.55-1.3) L 06/02/18 05:30 Creat Clearance w eGFR > 60 (>60) 06/02/18 05:30 Random Glucose 101 mg/dL (74-106) 06/02/18 05:30 Calcium 8.7 mg/dL (8.5-10.1) 06/02/18 05:30 Total Bilirubin 0.4 mg/dL (0.2-1) 06/02/18 05:30 AST 12 U/L (15-37) L 06/02/18 05:30 ALT 14 U/L (13-61) 06/02/18 05:30 Alkaline Phosphatase 42 U/L (45-117) L 06/02/18 05:30 Total Protein 5.7 g/dl (6.4-8.2) L 06/02/18 05:30 Albumin 2.7 g/dl (3.4-5.0) L 06/02/18 05:30 CARDIAC ENZYMES Troponin I < 0.02 ng/ml (0.00-0.05) 05/19/18 08:18 Current Medications Generic Name Dose Route Start Last Admin Trade Name Freq PRN Reason Stop Dose Admin Acetylcysteine 400 mg 05/24/18 20:00 06/02/18 08:15 Mucomyst 20 Oral / Inh Use Only* NEB Not Given RQID BRIE Albuterol Sulfate 1 amp 05/19/18 11:35 05/25/18 02:45 Ventolin 0.083% Nebulizer Soln - NEB 1 amp Q4H PRN Administration SHORT OF BREATH/WHEEZING Amlodipine Besylate 5 mg 05/20/18 10:00 06/02/18 11:42 Norvasc - PO 5 mg DAILY BRIE Administration Budesonide/Formoterol Fumarate 2 puff 05/26/18 22:00 06/02/18 10:25 Symbicort 160/4.5mcg - IH 2 puff BID BRIE Administration Chlorhexidine Gluconate 1 applic 01/02/19 22:00 06/01/18 22:44 Hibiclens For Decolonization - TP 1 applic HS BRIE Administration Enoxaparin Sodium 40 mg 05/21/18 10:00 06/02/18 10:27 Lovenox - SQ 40 mg DAILY BRIE Administration Methylprednisolone Sodium Succinate 40 mg 05/23/18 10:00 06/02/18 10:30 Solu-Medrol - IVPUSH 40 mg BID BRIE Administration Nystatin 500,000 units 05/27/18 18:00 06/02/18 11:45 Nystatin Oral Suspension - PO 500,000 units Q6HPO BRIE Administration Pantoprazole Sodium 40 mg 05/28/18 10:00 06/02/18 10:26 Protonix - PO 40 mg DAILY BRIE Administration Valacyclovir HCl 500 mg 05/29/18 11:30 06/02/18 10:25 Valtrex - PO 500 mg BID BRIE Administration Home Medications Medication Instructions Recorded Salmeterol/Fluticasone [Advair 1 inh PO BID 03/16/12 250Mcg/50Mcg] Albuterol 0.083% Nebulizer Bhavana 1 amp NEB PRN PRN 05/19/18 [Ventolin 0.083% Nebulizer Soln -] Amlodipine Besylate [Norvasc -] 5 mg PO DAILY 05/19/18 ASSESSMENT AND PLAN: Patient is a 67yo female with PMhx of COPD , on home O2, HTN, lung cancer ,and breast cancer, who presented with SOB and was found to have acute hypoxic hypercapnic respiratory failure, s/p extubation , unable to be off Bipap. # Acute hypoxic hypercapnic respiratory failure due to COPD exacerbation and PNA. s/p extubation , unable to wean her off the Bipap. On Rocephin, solu medrol continue. # Oral herpes : cont valcyclovir # HTN: cont norvasc DVT PX: lovenox GI px: PPI to be evaluated by LTAC shipping services sales representative and possible discharge to rehab.
--- NOTE | 2018-06-02 14:49 | PN ---
Physical Exam: SUBJECTIVE: Patient seen and examined this morning at bedside. Tolerating NIPPV. No new complaints. OBJECTIVE: Vital Signs Period Temp Pulse Resp BP Sys/Sawyer Pulse Ox Last 24 Hr 97.1 F-98.5 F 90-113 17-21 113-151/73-94 93-95 GENERAL: A&Ox3, NAD HEAD: NCAT EYES: PERRL, EOMI ENT: Oropharynx clear without exudates, moist mucous membranes. NECK: No JVD LUNGS: Diffuse wheezing throughout HEART: Regular rate and rhythm, S1, S2 without murmur ABDOMEN: Soft, nontender, nondistended, + bowel sounds, no guarding EXTREMITIES: 2+ pulses, no edema. NEUROLOGICAL: Cranial nerves II through XII grossly intact. Normal speech SKIN: Warm, dry Laboratory Results - last 24 hr 06/02/18 06/02/18 06/02/18 05:30 05:30 06:10 WBC 15.2 H RBC 3.98 Hgb 10.8 Hct 34.0 MCV 85.5 MCH 27.2 MCHC 31.9 L RDW 15.6 Plt Count 250 MPV 9.5 Absolute Neuts (auto) 14.7 H Neutrophils % 97.1 H Neutrophils % (Manual) 96.0 H Band Neutrophils % 1.0 Lymphocytes % 0.5 L Lymphocytes % (Manual) 1.0 L D Monocytes % 2.2 L Monocytes % (Manual) 2 L Eosinophils % 0.0 D Eosinophils % (Manual) 0.0 Basophils % 0.2 Basophils % (Manual) 0.0 Myelocytes % (Man) 0 Promyelocytes % (Man) 0 Blast Cells % (Manual) 0 Nucleated RBC % 0 Metamyelocytes 0 Hypochromia 0 Toxic Granulation 0 Dohle Bodies 0 Platelet Estimate Normal Polychromasia 0 Poikilocytosis 0 Basophilic Stippling 0 Anisocytosis 0 Microcytosis 0 Macrocytosis 0 Spherocytes 0 Sickle Cells 0 Target Cells 0 Tear Drop Cells 0 Ovalocytes 0 Stomatocytes 0 Helmet Cells 0 Swartz-[place] Bodies 0 [place] Rings 0 Rosendo Cells 0 Acanthocytes (Spur) 0 Rouleaux 0 Fragmented RBCs 0 Schistocytes 0 Anticoagulation Therapy No Result Required. Puncture Site Left radial ABG pH 7.37 ABG pCO2 at Pt Temp 66.5 H* ABG pO2 at Pt Temp 61.6 L ABG HCO3 37.5 H ABG O2 Sat (Measured) 89.7 L ABG O2 Content 12.9 L ABG Base Excess 10.6 H Bj Test Positive O2 Delivery Device No Result Required. Oxygen Flow Rate 60 Vent Mode No Result Required. Vent Rate 12 Mechanical Rate No Result Required. Pressure Support Vent T4/7 Sodium 145 Potassium 4.4 Chloride 105 Carbon Dioxide 38 H Anion Gap 2 L BUN 38 H Creatinine 0.5 L Creat Clearance w eGFR > 60 Random Glucose 101 Calcium 8.7 Phosphorus 3.3 Magnesium 2.0 Total Bilirubin 0.4 AST 12 L ALT 14 Alkaline Phosphatase 42 L Total Protein 5.7 L Albumin 2.7 L Microbiology 05/19/18 09:00 Nasopharyngeal Aspirate Respiratory Virus (PCR) - Final 05/19/18 08:18 Blood - Peripheral Venous Blood Culture - Final NO GROWTH AFTER 5 DAYS INCUBATION 05/19/18 08:18 Blood - Peripheral Venous Blood Culture - Final NO GROWTH AFTER 5 DAYS INCUBATION 05/19/18 15:09 Sputum - Endotrachea Suction/Ventilator Gram Stain - Final 05/19/18 15:09 Sputum - Endotrachea Suction/Ventilator Sputum Culture - Final Streptococcus Pneumoniae Staphylococcus Aureus 05/19/18 15:09 Urine - Urine - Catheterized Legionella Antigen - Final 05/19/18 15:09 Urine - Urine - Catheterized Streptococcus pneumoniae Antigen (M - Final 05/19/18 08:30 Urine - Urine Clean Catch Urine Culture - Final NO GROWTH OBTAINED Active Medications Acetylcysteine (Mucomyst 20 Oral / Inh Use Only*) 400 mg NEB RQID [facility] Last Admin: 06/02/18 08:15 Dose: Not Given Albuterol Sulfate (Ventolin 0.083% Nebulizer Soln -) 1 amp NEB Q4H PRN PRN Reason: SHORT OF BREATH/WHEEZING Last Admin: 05/25/18 02:45 Dose: 1 amp Amlodipine Besylate (Norvasc -) 5 mg PO DAILY [facility] Last Admin: 06/02/18 11:42 Dose: 5 mg Budesonide/Formoterol Fumarate (Symbicort 160/4.5mcg -) 2 puff IH BID [facility] Last Admin: 06/02/18 10:25 Dose: 2 puff Chlorhexidine Gluconate (Hibiclens For Decolonization -) 1 applic TP HS [facility] Last Admin: 06/01/18 22:44 Dose: 1 applic Enoxaparin Sodium (Lovenox -) 40 mg SQ DAILY [facility] Last Admin: 06/02/18 10:27 Dose: 40 mg Methylprednisolone Sodium Succinate (Solu-Medrol -) 40 mg IVPUSH BID [facility] Last Admin: 06/02/18 10:30 Dose: 40 mg Nystatin (Nystatin Oral Suspension -) 500,000 units PO Q6HPO [facility] Last Admin: 06/02/18 11:45 Dose: 500,000 units Pantoprazole Sodium (Protonix -) 40 mg PO DAILY [facility] Last Admin: 06/02/18 10:26 Dose: 40 mg Valacyclovir HCl (Valtrex -) 500 mg PO BID [facility] Last Admin: 06/02/18 10:25 Dose: 500 mg ASSESSMENT/PLAN: 67 y/o F with PMHx COPD (on 2L O2), breast and lung Ca, perforated ulcer, prior intubation admitted to ICU in septic shock with acute on chronic respiratory failure 2/2 PNA. #Pulmonary Acute on Chronic Hypoxic and Hypercapneic Respiratory Failure -Likely due to Acute COPD exacerbation, bilateral pneumonia -s/p extubation (on 05/25) -Attempt to start HFOT; Will taper flow rate, FiO2 to keep SpO2 > 90% -Continue NIPPV PRN (Settings ///60%) -Continue Solumedrol 40mg BID, Albeuterol QID and PRN, Symbicort, Acetylcysteine -Chest PT -CXR (06/02): No significant change -If unable to wean from HFOT, Family would like to explore possible LTAC options #Cardio HTN -Continue Home dose Amlodipine -Maintaining MAP off pressors #ID Severe Sepsis, Improving -Likely due to b/l PNA -ID (Dr. Roach) Consulted -Urine Pneumococcal antigen positive -Sputum cx positive for S pneumo and S aureus -RSV, Blood cx, Urine cx negative -Started Abx on 05/19; Continue Ceftriaxone (Course to be completed tomorrow) Oral Herpes -Continue Valacyclovir 500mg PO BID (Complete 7 day course) #Neuro -A&Ox3, No Active problems -Continue to monitor -PT consulted -OOB w/ PT #FEN -PO Fluids -Lytes WNL -Dysphagia puree w/ thin liquids, Magic Cup, No Soy products #PPx -DVT: Lovenox -GI: Protonix #Code Status -Full Code Dispo: continue to monitor in ICU, Pending LTAC placement Visit type - Emergency Visit Emergency Visit: Yes ED Registration Date: 05/19/18 Care time: The patient presented to the Emergency Department on the above date and was hospitalized for further evaluation of their emergent condition. - New Patient This patient is new to me today: Yes Date on this admission: 06/02/18 - Critical Care Critical Care patient: Yes Total Critical Care Time (in minutes): 36 Critical Care Statement: The care of this patient involved high complexity decision making to prevent further life threatening deterioration of the patient 's condition and/or to evaluate & treat vital organ system(s) failure or risk of failure.
--- NOTE | 2018-06-02 15:24 | PN ---
Physical Exam: SUBJECTIVE: Patient seen and examined at bedside this morning. No acute events overnight. Patient remained on bipap overnight. OBJECTIVE: Vital Signs Period Temp Pulse Resp BP Sys/Sawyer Pulse Ox Last 24 Hr 97.1 F-98.5 F 90-113 17-21 113-151/73-94 93-95 GENERAL: Patient is awake, alert, on bipap, +accessory muscle use HEAD: Normal with no signs of trauma. HEENT: PERRLA, dry mucous membranes NECK: soft, supple, trachea midline LUNGS: decreased breath sounds bilaterally, +scattered wheezes HEART: Regular rate and rhythm, S1, S2 without murmur, rub or gallop. ABDOMEN: Soft, nontender, nondistended, normoactive bowel sounds EXTREMITIES: 2+ pulses, warm, well-perfused, no edema. Laboratory Results - last 24 hr 06/02/18 06/02/18 06/02/18 05:30 05:30 06:10 WBC 15.2 H RBC 3.98 Hgb 10.8 Hct 34.0 MCV 85.5 MCH 27.2 MCHC 31.9 L RDW 15.6 Plt Count 250 MPV 9.5 Absolute Neuts (auto) 14.7 H Neutrophils % 97.1 H Neutrophils % (Manual) 96.0 H Band Neutrophils % 1.0 Lymphocytes % 0.5 L Lymphocytes % (Manual) 1.0 L D Monocytes % 2.2 L Monocytes % (Manual) 2 L Eosinophils % 0.0 D Eosinophils % (Manual) 0.0 Basophils % 0.2 Basophils % (Manual) 0.0 Myelocytes % (Man) 0 Promyelocytes % (Man) 0 Blast Cells % (Manual) 0 Nucleated RBC % 0 Metamyelocytes 0 Hypochromia 0 Toxic Granulation 0 Dohle Bodies 0 Platelet Estimate Normal Polychromasia 0 Poikilocytosis 0 Basophilic Stippling 0 Anisocytosis 0 Microcytosis 0 Macrocytosis 0 Spherocytes 0 Sickle Cells 0 Target Cells 0 Tear Drop Cells 0 Ovalocytes 0 Stomatocytes 0 Helmet Cells 0 Swartz-[place] Bodies 0 [place] Rings 0 Rosendo Cells 0 Acanthocytes (Spur) 0 Rouleaux 0 Fragmented RBCs 0 Schistocytes 0 Anticoagulation Therapy No Result Required. Puncture Site Left radial ABG pH 7.37 ABG pCO2 at Pt Temp 66.5 H* ABG pO2 at Pt Temp 61.6 L ABG HCO3 37.5 H ABG O2 Sat (Measured) 89.7 L ABG O2 Content 12.9 L ABG Base Excess 10.6 H Bj Test Positive O2 Delivery Device No Result Required. Oxygen Flow Rate 60 Vent Mode No Result Required. Vent Rate 12 Mechanical Rate No Result Required. Pressure Support Vent T4/7 Sodium 145 Potassium 4.4 Chloride 105 Carbon Dioxide 38 H Anion Gap 2 L BUN 38 H Creatinine 0.5 L Creat Clearance w eGFR > 60 Random Glucose 101 Calcium 8.7 Phosphorus 3.3 Magnesium 2.0 Total Bilirubin 0.4 AST 12 L ALT 14 Alkaline Phosphatase 42 L Total Protein 5.7 L Albumin 2.7 L Active Medications Generic Name Dose Route Start Last Admin Trade Name Freq PRN Reason Stop Dose Admin Acetylcysteine 400 mg 05/24/18 20:00 06/02/18 08:15 Mucomyst 20 Oral / Inh Use Only* NEB Not Given RQID BRIE Albuterol Sulfate 1 amp 05/19/18 11:35 05/25/18 02:45 Ventolin 0.083% Nebulizer Soln - NEB 1 amp Q4H PRN Administration SHORT OF BREATH/WHEEZING Amlodipine Besylate 5 mg 05/20/18 10:00 06/02/18 11:42 Norvasc - PO 5 mg DAILY BRIE Administration Budesonide/Formoterol Fumarate 2 puff 05/26/18 22:00 06/02/18 10:25 Symbicort 160/4.5mcg - IH 2 puff BID BRIE Administration Chlorhexidine Gluconate 1 applic 05/19/18 22:00 06/01/18 22:44 Hibiclens For Decolonization - TP 1 applic HS BRIE Administration Enoxaparin Sodium 40 mg 05/21/18 10:00 06/02/18 10:27 Lovenox - SQ 40 mg DAILY BRIE Administration Methylprednisolone Sodium Succinate 40 mg 05/23/18 10:00 06/02/18 10:30 Solu-Medrol - IVPUSH 40 mg BID BRIE Administration Nystatin 500,000 units 05/27/18 18:00 06/02/18 11:45 Nystatin Oral Suspension - PO 500,000 units Q6HPO BRIE Administration Pantoprazole Sodium 40 mg 05/28/18 10:00 06/02/18 10:26 Protonix - PO 40 mg DAILY BRIE Administration Trazodone HCl 50 mg 06/02/18 22:00 Desyrel - PO HS BRIE Valacyclovir HCl 500 mg 05/29/18 11:30 06/02/18 10:25 Valtrex - PO 500 mg BID BRIE Administration ASSESSMENT/PLAN: Patient is a 67 year old female with past medical history of COPD with hx of intubation, breast and lung CA, perforated ulcer, HTN, presented with worsening shortness of breath with increased sputum production for a few days. #Acute hypoxic respiratory failure:likely 2/2 COPD exacerbation, bilateral pneumonia -s/p extubation. On bipap/HFOT -Duonebs RQID, Albuterol q4h PRN -Mucomyst -IV Methylprednisolone 40mg BID -Resume home Symbicort -ABG, CXR -Social work in the case, patient and have chosen [facility] in [place] [employer] in [place] -Patient accepted. Insurance authorization pending. #Septic shock likely 2/2 pneumonia: improving -ID (Dr. Roach) consulted. Recommendations appreciated. -Ceftriaxone 2gm daily day . -Urine pneumococcal antigens positive -Sputum cx: S. pneumoniae, S. aureus -Vanc/Zosyn discontinued #Oral herpes -Valacyclovir 500mg BID #HTN -Continue home Amlodipine 5mg daily -Will continue to monitor BP #FEN -Not on any standing fluids -Electrolytes wnl, routine bmp monitoring -Dysphagia puree diet #Prophylaxis -DVT: Lovenox 40mg sq daily -GI: IV protonix 40mg daily #Disposition -full code -Admit to ICU for closer monitoring Visit type - Emergency Visit Emergency Visit: Yes ED Registration Date: 05/19/18 Care time: The patient presented to the Emergency Department on the above date and was hospitalized for further evaluation of their emergent condition. - New Patient This patient is new to me today: No - Critical Care Critical Care patient: No Total Critical Care Time (in minutes): 40 Critical Care Statement: The care of this patient involved high complexity decision making to prevent further life threatening deterioration of the patient 's condition and/or to evaluate & treat vital organ system(s) failure or risk of failure.
[2018-06-02 16:33] VITALS: BMI 21.1
[2018-06-02] MEDS ORDERED: PT OWN MED DRAWER 7, Y5N ONE (21:53)
[2018-06-02] MEDS: CHLORHEXIDINE GLUCONATE 4% CLEANSER FOR DECOLONIZATION TP SCH (22:05)
[2018-06-02] MEDS: traZODone HCL 50 MG TABLET (FP) PO SCH (22:05)
[2018-06-03] MEDS: NYSTATIN 500,000 UNITS/5 ML SUSPENSION PO SCH ×4 (06:01→18:50)
[2018-06-03 06:33] LABS: BASO % 0.2 % (0-2.0); HEMATOCRIT 33.5 % (32.4-45.2); HEMOGLOBIN 10.6 GM/dL (10.7-15.3); LYMPH % 0.6 % (8-40); MCH 27.1 pg (25.7-33.7); MCHC 31.5 g/dl (32.0-36.0); MEAN CELL VOLUME 86.1 fl (80-96); MEAN PLT VOLUME 9.9 fl (7.5-11.1); MONO % 2.5 % (3.8-10.2); NEUT % 96.7 % (42.8-82.8); PLATELET COUNT 229 K/MM3 (134-434); RBC 3.89 M/mm3 (3.60-5.2); RDW 15.8 % (11.6-15.6); WHITE BLOOD COUNT 13.2 K/mm3 (4.0-10.0)
[2018-06-03] MEDS: ACETYLCYSTEINE 20% 200MG/ML 4 ML VIAL *FOR ORAL / INH USE ONLY NEB SCH ×4 (08:05→20:49)
[2018-06-03 08:34] LABS: ALBUMIN 2.8 g/dl (3.4-5.0); ALK PHOS 41 U/L (45-117); ANION GAP 7 MMOL/L (8-16); BILIRUBIN,TOTAL 0.5 mg/dL (0.2-1); BLOOD UREA NITROGEN 38 mg/dL (7-18); CALCIUM 8.7 mg/dL (8.5-10.1); CHLORIDE 103 mmol/L (98-107); CO2 35 mmol/L (21-32); CREATININE 0.5 mg/dL (0.55-1.3); GLUCOSE,RANDOM 99 mg/dL (74-106); MAGNESIUM 2.2 mg/dL (1.8-2.4); PHOSPHOROUS 3.4 mg/dL (2.5-4.9); POTASSIUM 4.5 mmol/L (3.5-5.1); SGOT/AST 18 U/L (15-37); SGPT/ALT 14 U/L (13-61); SODIUM 145 mmol/L (136-145); TOT PROT 5.6 g/dl (6.4-8.2)
[2018-06-03] MEDS ORDERED: PT OWN MED DRAWER 7, Y5N ONE (09:01)
[2018-06-03] MEDS: valACYclovir HCL 500 MG TABLET (FP) PO SCH ×2 (09:04→22:38)
[2018-06-03] MEDS: ENOXAPARIN NA (PORCINE) 40 MG/0.4 ML DISP.SYRIN SQ SCH (09:04)
[2018-06-03] MEDS: amLODIPine BESYLATE 5 MG TABLET (FP) PO SCH (09:05)
[2018-06-03] MEDS: PANTOPRAZOLE 40 MG TABLET (FP) PO SCH (09:05)
[2018-06-03] MEDS: methylPREDNISolone NA SUCC 40 MG/1 ML VIAL IVPUSH SCH (09:05)
[2018-06-03] MEDS: BUDESONIDE/FORMETEROL FUMARATE 160/4.5 mcg INHALER IH SCH ×2 (09:06→22:38)
[2018-06-03 09:43] LABS: ACANTHOCYTES 0; ANISOCYTOSIS 0; HELMET CELLS 0; HOWELL-JOLLY BODIES 0; MACROCYTOSIS 0; OVALOCYTE 0; PLATELET ESTIMATE NORMAL; ROULEAU 0; SICKELED CELLS 0; TARGET CELLS 0; TEAR DROP CELLS 0; TOXIC GRANULATION 0
--- NOTE | 2018-06-03 11:42 | PN ---
Teaching Attending Note Name of Resident: Regina Clark ATTENDING PHYSICIAN STATEMENT I saw and evaluated the patient. I reviewed the resident's note and discussed the case with the resident. I agree with the resident's findings and plan as documented. SUBJECTIVE: Patient seen and examined in the ICU. Remains dependent on NIPPV. Minimal tolerance to HF OT during meals only. Breathing feels about the same as yesterday. No significant cough or wheezing. OBJECTIVE: Intake & Output 05/31/18 06/01/18 06/02/18 06/03/18 23:59 23:59 23:59 23:59 Intake Total 960 400 350 50 Output Total 600 Balance 960 -200 350 50 Weight 117 lb 1 oz 110 lb 5 oz 112 lb 9 oz 111 lb 8 oz Last Vital Signs Temp Pulse Resp BP Pulse Ox 98.5 F 99 H 20 140/86 98 06/03/18 10:00 06/03/18 10:00 06/03/18 10:00 06/03/18 10:00 06/03/18 10:46 Active Medications Acetylcysteine (Mucomyst 20 Oral / Inh Use Only*) 400 mg NEB RQID [facility] Last Admin: 06/03/18 11:27 Dose: Not Given Albuterol Sulfate (Ventolin 0.083% Nebulizer Soln -) 1 amp NEB Q4H PRN PRN Reason: SHORT OF BREATH/WHEEZING Last Admin: 05/25/18 02:45 Dose: 1 amp Amlodipine Besylate (Norvasc -) 5 mg PO DAILY [facility] Last Admin: 06/03/18 09:05 Dose: 5 mg Budesonide/Formoterol Fumarate (Symbicort 160/4.5mcg -) 2 puff IH BID [facility] Last Admin: 06/03/18 09:06 Dose: 2 puff Chlorhexidine Gluconate (Hibiclens For Decolonization -) 1 applic TP HS [facility] Last Admin: 06/02/18 22:05 Dose: 1 applic Enoxaparin Sodium (Lovenox -) 40 mg SQ DAILY [facility] Last Admin: 06/03/18 09:04 Dose: 40 mg Methylprednisolone Sodium Succinate (Solu-Medrol -) 40 mg IVPUSH DAILY [facility] Nystatin (Nystatin Oral Suspension -) 500,000 units PO Q6HPO [facility] Last Admin: 06/03/18 06:01 Dose: 500,000 units Pantoprazole Sodium (Protonix -) 40 mg PO DAILY [facility] Last Admin: 06/03/18 09:05 Dose: 40 mg Trazodone HCl (Desyrel -) 50 mg PO HS [facility] Last Admin: 06/02/18 22:05 Dose: 50 mg Valacyclovir HCl (Valtrex -) 500 mg PO BID [facility] Last Admin: 06/03/18 09:04 Dose: 500 mg Gen: Awake and alert, mildly tachypneic on NIPPV support Heart: RRR Lung: distant breath sounds, no wheeze, scattered rhonchi Abd: soft, nontender Ext: no edema Laboratory Results - last 24 hr 06/02/18 06/03/18 06/03/18 05:30 05:30 05:30 WBC 13.2 H RBC 3.89 Hgb 10.6 L Hct 33.5 MCV 86.1 MCH 27.1 MCHC 31.5 L RDW 15.8 H Plt Count 229 MPV 9.9 Absolute Neuts (auto) 12.8 H Neutrophils % 96.7 H Neutrophils % (Manual) 96.0 H 97.0 H Band Neutrophils % 1.0 0.0 Lymphocytes % 0.6 L Lymphocytes % (Manual) 1.0 L D 0.0 L Monocytes % 2.5 L Monocytes % (Manual) 2 L 3 L Eosinophils % 0.0 Eosinophils % (Manual) 0.0 0.0 Basophils % 0.2 Basophils % (Manual) 0.0 0.0 Myelocytes % (Man) 0 0 Promyelocytes % (Man) 0 0 Blast Cells % (Manual) 0 0 Nucleated RBC % 0 Metamyelocytes 0 0 Hypochromia 0 0 Toxic Granulation 0 0 Dohle Bodies 0 0 Platelet Estimate Normal Normal Polychromasia 0 0 Poikilocytosis 0 0 Basophilic Stippling 0 0 Anisocytosis 0 0 Microcytosis 0 0 Macrocytosis 0 0 Spherocytes 0 0 Sickle Cells 0 0 Target Cells 0 0 Tear Drop Cells 0 0 Ovalocytes 0 0 Stomatocytes 0 0 Helmet Cells 0 0 Swartz-[place] Bodies 0 0 [place] Rings 0 0 Rosendo Cells 0 0 Acanthocytes (Spur) 0 0 Rouleaux 0 0 Fragmented RBCs 0 0 Schistocytes 0 0 Sodium 145 Potassium 4.5 Chloride 103 Carbon Dioxide 35 H Anion Gap 7 L BUN 38 H Creatinine 0.5 L Creat Clearance w eGFR > 60 Random Glucose 99 Calcium 8.7 Phosphorus 3.4 Magnesium 2.2 Total Bilirubin 0.5 AST 18 ALT 14 Alkaline Phosphatase 41 L Total Protein 5.6 L Albumin 2.8 L ASSESSMENT AND PLAN: Acute on Chronic Hypoxic and Hypercapneic Respiratory Failure Pneumonia Severe Sepsis improving ARDS resolving Acute COPD Exacerbation Lactic Acidosis resolved h/o Lung Cancer - NIPPV support as needed to assist in work of breathing - ABX per ID - Wean Medrol - inhaled bronchodilators - DVT/GI prophylaxis - continue ICU monitoring for tenuous respiratory status - for LTAC placement, will likely require Trach Dr Harris Critical care time spent in reviewing chart, evaluating patient and formulating plan 36 min
--- NOTE | 2018-06-03 13:57 | PN ---
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 Case reviewed with staff.Nursing providing pt's food preferences within guidelines of dietary order eg magic cup, oatmeal. Pt predominantly on BIPAP, tolerating high flow for short periods, at which time she is fed with aspiration precautions maintained. Pending possible transfer to LTACH. Pt may require trach/PEG.as discussed with staff.
--- NOTE | 2018-06-03 14:42 | PN ---
Physical Exam: SUBJECTIVE: Patient seen and examined this morning at bedside. Unable to tolerate HFOT. No new complaints. OBJECTIVE: Vital Signs Period Temp Pulse Resp BP Sys/Sawyer Pulse Ox Last 24 Hr 98 F-98.5 F 86-112 17-22 118-147/71-91 93-98 GENERAL: A&Ox3, NAD HEAD: NCAT EYES: PERRL, EOMI ENT: Oropharynx clear without exudates, moist mucous membranes. NECK: No JVD LUNGS: Diffuse rhonchi throughout HEART: Regular rate and rhythm, S1, S2 without murmur ABDOMEN: Soft, nontender, nondistended, + bowel sounds, no guarding EXTREMITIES: 2+ pulses, no edema. NEUROLOGICAL: Cranial nerves II through XII grossly intact. Normal speech SKIN: Warm, dry Laboratory Results - last 24 hr 06/03/18 06/03/18 05:30 05:30 WBC 13.2 H RBC 3.89 Hgb 10.6 L Hct 33.5 MCV 86.1 MCH 27.1 MCHC 31.5 L RDW 15.8 H Plt Count 229 MPV 9.9 Absolute Neuts (auto) 12.8 H Neutrophils % 96.7 H Neutrophils % (Manual) 97.0 H Band Neutrophils % 0.0 Lymphocytes % 0.6 L Lymphocytes % (Manual) 0.0 L Monocytes % 2.5 L Monocytes % (Manual) 3 L Eosinophils % 0.0 Eosinophils % (Manual) 0.0 Basophils % 0.2 Basophils % (Manual) 0.0 Myelocytes % (Man) 0 Promyelocytes % (Man) 0 Blast Cells % (Manual) 0 Nucleated RBC % 0 Metamyelocytes 0 Hypochromia 0 Toxic Granulation 0 Dohle Bodies 0 Platelet Estimate Normal Polychromasia 0 Poikilocytosis 0 Basophilic Stippling 0 Anisocytosis 0 Microcytosis 0 Macrocytosis 0 Spherocytes 0 Sickle Cells 0 Target Cells 0 Tear Drop Cells 0 Ovalocytes 0 Stomatocytes 0 Helmet Cells 0 Swartz-Braggs Bodies 0 [place] Rings 0 [place] Cells 0 Acanthocytes (Spur) 0 Rouleaux 0 Fragmented RBCs 0 Schistocytes 0 Sodium 145 Potassium 4.5 Chloride 103 Carbon Dioxide 35 H Anion Gap 7 L BUN 38 H Creatinine 0.5 L Creat Clearance w eGFR > 60 Random Glucose 99 Calcium 8.7 Phosphorus 3.4 Magnesium 2.2 Total Bilirubin 0.5 AST 18 ALT 14 Alkaline Phosphatase 41 L Total Protein 5.6 L Albumin 2.8 L Microbiology 05/19/18 09:00 Nasopharyngeal Aspirate Respiratory Virus (PCR) - Final 05/19/18 08:18 Blood - Peripheral Venous Blood Culture - Final NO GROWTH AFTER 5 DAYS INCUBATION 05/19/18 08:18 Blood - Peripheral Venous Blood Culture - Final NO GROWTH AFTER 5 DAYS INCUBATION 05/19/18 15:09 Sputum - Endotrachea Suction/Ventilator Gram Stain - Final 05/19/18 15:09 Sputum - Endotrachea Suction/Ventilator Sputum Culture - Final Streptococcus Pneumoniae Staphylococcus Aureus 05/19/18 15:09 Urine - Urine - Catheterized Legionella Antigen - Final 05/19/18 15:09 Urine - Urine - Catheterized Streptococcus pneumoniae Antigen (M - Final 05/19/18 08:30 Urine - Urine Clean Catch Urine Culture - Final NO GROWTH OBTAINED Active Medications Acetylcysteine (Mucomyst 20 Oral / Inh Use Only*) 400 mg NEB RQID [facility] Last Admin: 06/03/18 11:27 Dose: Not Given Albuterol Sulfate (Ventolin 0.083% Nebulizer Soln -) 1 amp NEB Q4H PRN PRN Reason: SHORT OF BREATH/WHEEZING Last Admin: 05/25/18 02:45 Dose: 1 amp Amlodipine Besylate (Norvasc -) 5 mg PO DAILY [facility] Last Admin: 06/03/18 09:05 Dose: 5 mg Budesonide/Formoterol Fumarate (Symbicort 160/4.5mcg -) 2 puff IH BID [facility] Last Admin: 06/03/18 09:06 Dose: 2 puff Chlorhexidine Gluconate (Hibiclens For Decolonization -) 1 applic TP HS [facility] Last Admin: 06/02/18 22:05 Dose: 1 applic Enoxaparin Sodium (Lovenox -) 40 mg SQ DAILY [facility] Last Admin: 06/03/18 09:04 Dose: 40 mg Methylprednisolone Sodium Succinate (Solu-Medrol -) 40 mg IVPUSH DAILY [facility] Nystatin (Nystatin Oral Suspension -) 500,000 units PO Q6HPO [facility] Last Admin: 06/03/18 13:03 Dose: Not Given Pantoprazole Sodium (Protonix -) 40 mg PO DAILY [facility] Last Admin: 06/03/18 09:05 Dose: 40 mg Trazodone HCl (Desyrel -) 50 mg PO HS [facility] Last Admin: 06/02/18 22:05 Dose: 50 mg Valacyclovir HCl (Valtrex -) 500 mg PO BID [facility] Last Admin: 06/03/18 09:04 Dose: 500 mg ASSESSMENT/PLAN: 67 y/o F with PMHx COPD (on 2L O2), breast and lung Ca, perforated ulcer, prior intubation admitted to ICU in septic shock with acute on chronic respiratory failure 2/2 PNA. #Pulmonary Acute on Chronic Hypoxic and Hypercapneic Respiratory Failure -Likely due to Acute COPD exacerbation, bilateral pneumonia -s/p extubation (on 05/25) -Attempt to start HFOT; Will taper flow rate, FiO2 to keep SpO2 > 90% -Continue NIPPV PRN (Settings 30/11//60%) -Decrease Solumedrol to 40mg Daily; Continue Albeuterol QID and PRN, Symbicort, Acetylcysteine -Chest PT -CXR (06/02): No significant change -If unable to wean from HFOT, Family would like to explore possible LTAC options #Cardio HTN -Continue Home dose Amlodipine -Maintaining MAP off pressors #ID Severe Sepsis, Improving -Likely due to b/l PNA -ID (Dr. Roach) Consulted -Urine Pneumococcal antigen positive -Sputum cx positive for S pneumo and S aureus -RSV, Blood cx, Urine cx negative -Started Abx on 05/19; Ceftriaxone (Course completed 06/03) Oral Herpes -Continue Valacyclovir 500mg PO BID (Complete 7 day course on 06/04) #Neuro -A&Ox3, No Active problems -Continue to monitor -PT consulted -OOB w/ PT #FEN -PO Fluids -Lytes WNL -Dysphagia puree w/ thin liquids, Magic Cup, No Soy products #PPx -DVT: Lovenox -GI: Protonix #Code Status -Full Code Dispo: continue to monitor in ICU, Pending LTAC placement Visit type - Emergency Visit Emergency Visit: Yes ED Registration Date: 05/19/18 Care time: The patient presented to the Emergency Department on the above date and was hospitalized for further evaluation of their emergent condition. - New Patient This patient is new to me today: Yes Date on this admission: 06/03/18 - Critical Care Critical Care patient: Yes Total Critical Care Time (in minutes): 36 Critical Care Statement: The care of this patient involved high complexity decision making to prevent further life threatening deterioration of the patient 's condition and/or to evaluate & treat vital organ system(s) failure or risk of failure.
--- NOTE | 2018-06-03 17:17 | PN ---
Physical Exam: SUBJECTIVE: Patient seen and examined at bedside this morning. Patient remains on bipap. OBJECTIVE: Vital Signs Period Temp Pulse Resp BP Sys/Sawyer Pulse Ox Last 24 Hr 97.8 F-98.5 F 86-112 17-22 118-147/71-88 93-98 GENERAL: Patient is awake, alert, on bipap, +accessory muscle use HEAD: Normal with no signs of trauma. HEENT: PERRLA, dry mucous membranes NECK: soft, supple, trachea midline LUNGS: decreased breath sounds bilaterally, +scattered wheezes HEART: Regular rate and rhythm, S1, S2 without murmur, rub or gallop. ABDOMEN: Soft, nontender, nondistended, normoactive bowel sounds EXTREMITIES: 2+ pulses, warm, well-perfused, no edema. Laboratory Results - last 24 hr 06/03/18 06/03/18 05:30 05:30 WBC 13.2 H RBC 3.89 Hgb 10.6 L Hct 33.5 MCV 86.1 MCH 27.1 MCHC 31.5 L RDW 15.8 H Plt Count 229 MPV 9.9 Absolute Neuts (auto) 12.8 H Neutrophils % 96.7 H Neutrophils % (Manual) 97.0 H Band Neutrophils % 0.0 Lymphocytes % 0.6 L Lymphocytes % (Manual) 0.0 L Monocytes % 2.5 L Monocytes % (Manual) 3 L Eosinophils % 0.0 Eosinophils % (Manual) 0.0 Basophils % 0.2 Basophils % (Manual) 0.0 Myelocytes % (Man) 0 Promyelocytes % (Man) 0 Blast Cells % (Manual) 0 Nucleated RBC % 0 Metamyelocytes 0 Hypochromia 0 Toxic Granulation 0 Dohle Bodies 0 Platelet Estimate Normal Polychromasia 0 Poikilocytosis 0 Basophilic Stippling 0 Anisocytosis 0 Microcytosis 0 Macrocytosis 0 Spherocytes 0 Sickle Cells 0 Target Cells 0 Tear Drop Cells 0 Ovalocytes 0 Stomatocytes 0 Helmet Cells 0 Swartz-Keyser Bodies 0 [place] Rings 0 [place] Cells 0 Acanthocytes (Spur) 0 Rouleaux 0 Fragmented RBCs 0 Schistocytes 0 Sodium 145 Potassium 4.5 Chloride 103 Carbon Dioxide 35 H Anion Gap 7 L BUN 38 H Creatinine 0.5 L Creat Clearance w eGFR > 60 Random Glucose 99 Calcium 8.7 Phosphorus 3.4 Magnesium 2.2 Total Bilirubin 0.5 AST 18 ALT 14 Alkaline Phosphatase 41 L Total Protein 5.6 L Albumin 2.8 L Active Medications Generic Name Dose Route Start Last Admin Trade Name Freq PRN Reason Stop Dose Admin Acetylcysteine 400 mg 05/24/18 20:00 06/03/18 16:26 Mucomyst 20 Oral / Inh Use Only* NEB Not Given RQID BRIE Albuterol Sulfate 1 amp 05/19/18 11:35 05/25/18 02:45 Ventolin 0.083% Nebulizer Soln - NEB 1 amp Q4H PRN Administration SHORT OF BREATH/WHEEZING Amlodipine Besylate 5 mg 05/20/18 10:00 06/03/18 09:05 Norvasc - PO 5 mg DAILY BRIE Administration Budesonide/Formoterol Fumarate 2 puff 05/26/18 22:00 06/03/18 09:06 Symbicort 160/4.5mcg - IH 2 puff BID BRIE Administration Chlorhexidine Gluconate 1 applic 05/19/18 22:00 06/02/18 22:05 Hibiclens For Decolonization - TP 1 applic HS BRIE Administration Enoxaparin Sodium 40 mg 05/21/18 10:00 06/03/18 09:04 Lovenox - SQ 40 mg DAILY BRIE Administration Methylprednisolone Sodium Succinate 40 mg 06/04/18 10:00 Solu-Medrol - IVPUSH DAILY BRIE Nystatin 500,000 units 05/27/18 18:00 06/03/18 13:03 Nystatin Oral Suspension - PO Not Given Q6HPO BRIE Pantoprazole Sodium 40 mg 05/28/18 10:00 06/03/18 09:05 Protonix - PO 40 mg DAILY BRIE Administration Trazodone HCl 50 mg 06/02/18 22:00 06/02/18 22:05 Desyrel - PO 50 mg HS BRIE Administration Valacyclovir HCl 500 mg 05/29/18 11:30 06/03/18 09:04 Valtrex - PO 500 mg BID BRIE Administration ASSESSMENT/PLAN: Patient is a 67 year old female with past medical history of COPD with hx of intubation, breast and lung CA, perforated ulcer, HTN, presented with worsening shortness of breath with increased sputum production for a few days. #Acute hypoxic respiratory failure:likely 2/2 COPD exacerbation, bilateral pneumonia -s/p extubation. On bipap/HFOT -Duonebs RQID, Albuterol q4h PRN -Mucomyst -IV Methylprednisolone 40mg decreased to daily -Resume home Symbicort -ABG, CXR -Social work in the case, patient and have chosen LTACH in [place] in [place] -Patient accepted. For possible transfer [facility] #Septic shock likely 2/2 pneumonia: improving -ID (Dr. Roach) consulted. Recommendations appreciated. -Ceftriaxone 2gm completed. -Urine pneumococcal antigens positive -Sputum cx: S. pneumoniae, S. aureus -Vanc/Zosyn discontinued #Oral herpes -Valacyclovir 500mg BID #HTN -Continue home Amlodipine 5mg daily -Will continue to monitor BP #FEN -Not on any standing fluids -Electrolytes wnl, routine bmp monitoring -Dysphagia puree diet #Prophylaxis -DVT: Lovenox 40mg sq daily -GI: IV protonix 40mg daily #Disposition -full code -ICU for closer monitoring -For possible transfer to [facility]. Visit type - Emergency Visit Emergency Visit: Yes ED Registration Date: 05/19/18 Care time: The patient presented to the Emergency Department on the above date and was hospitalized for further evaluation of their emergent condition. - New Patient This patient is new to me today: No - Critical Care Critical Care patient: Yes Total Critical Care Time (in minutes): 40 Critical Care Statement: The care of this patient involved high complexity decision making to prevent further life threatening deterioration of the patient 's condition and/or to evaluate & treat vital organ system(s) failure or risk of failure.
--- NOTE | 2018-06-03 18:50 | PN ---
Teaching Attending Note Name of Resident: Lore Vega ATTENDING PHYSICIAN STATEMENT I saw and evaluated the patient. I reviewed the resident's note and discussed the case with the resident. I agree with the resident's findings and plan as documented. SUBJECTIVE: Patient continues to be on Bipap. OBJECTIVE: Vital Signs Temperature 97.8 F 06/03/18 14:00 Pulse Rate 91 H 06/03/18 18:00 Respiratory Rate 19 06/03/18 18:00 Blood Pressure 138/88 06/03/18 18:00 O2 Sat by Pulse Oximetry (%) 97 06/03/18 18:05 GENERAL: Patient is awake, alert, on bipap, positive for accessory muscle use HEAD: Normal with no signs of trauma. HEENT: PERRLA, dry mucous membranes NECK: soft, supple, trachea midline LUNGS: decreased breath sounds bilaterally HEART: Regular rate and rhythm, S1, S2 without murmur, rub or gallop. ABDOMEN: Soft, nontender, nondistended, normoactive bowel sounds EXTREMITIES: 2+ pulses, warm, well-perfused, no edema. CBCD WBC 13.2 K/mm3 (4.0-10.0) H 06/03/18 05:30 RBC 3.89 M/mm3 (3.60-5.2) 06/03/18 05:30 Hgb 10.6 GM/dL (10.7-15.3) L 06/03/18 05:30 Hct 33.5 % (32.4-45.2) 06/03/18 05:30 MCV 86.1 fl (80-96) 06/03/18 05:30 MCHC 31.5 g/dl (32.0-36.0) L 06/03/18 05:30 RDW 15.8 % (11.6-15.6) H 06/03/18 05:30 Plt Count 229 K/MM3 (134-434) 06/03/18 05:30 MPV 9.9 fl (7.5-11.1) 06/03/18 05:30 CMP Sodium 145 mmol/L (136-145) 06/03/18 05:30 Potassium 4.5 mmol/L (3.5-5.1) 06/03/18 05:30 Chloride 103 mmol/L (98-107) 06/03/18 05:30 Carbon Dioxide 35 mmol/L (21-32) H 06/03/18 05:30 Anion Gap 7 MMOL/L (8-16) L 06/03/18 05:30 BUN 38 mg/dL (7-18) H 06/03/18 05:30 Creatinine 0.5 mg/dL (0.55-1.3) L 06/03/18 05:30 Creat Clearance w eGFR > 60 (>60) 06/03/18 05:30 Random Glucose 99 mg/dL (74-106) 06/03/18 05:30 Calcium 8.7 mg/dL (8.5-10.1) 06/03/18 05:30 Total Bilirubin 0.5 mg/dL (0.2-1) 06/03/18 05:30 AST 18 U/L (15-37) 06/03/18 05:30 ALT 14 U/L (13-61) 06/03/18 05:30 Alkaline Phosphatase 41 U/L (45-117) L 06/03/18 05:30 Total Protein 5.6 g/dl (6.4-8.2) L 06/03/18 05:30 Albumin 2.8 g/dl (3.4-5.0) L 06/03/18 05:30 CARDIAC ENZYMES Troponin I < 0.02 ng/ml (0.00-0.05) 05/19/18 08:18 Current Medications Generic Name Dose Route Start Last Admin Trade Name Freq PRN Reason Stop Dose Admin Acetylcysteine 400 mg 05/24/18 20:00 06/03/18 16:26 Mucomyst 20 Oral / Inh Use Only* NEB Not Given RQID BRIE Albuterol Sulfate 1 amp 05/19/18 11:35 05/25/18 02:45 Ventolin 0.083% Nebulizer Soln - NEB 1 amp Q4H PRN Administration SHORT OF BREATH/WHEEZING Amlodipine Besylate 5 mg 05/20/18 10:00 06/03/18 09:05 Norvasc - PO 5 mg DAILY BRIE Administration Budesonide/Formoterol Fumarate 2 puff 05/26/18 22:00 06/03/18 09:06 Symbicort 160/4.5mcg - IH 2 puff BID BRIE Administration Chlorhexidine Gluconate 1 applic 05/19/18 22:00 06/02/18 22:05 Hibiclens For Decolonization - TP 1 applic HS BRIE Administration Enoxaparin Sodium 40 mg 05/21/18 10:00 06/03/18 09:04 Lovenox - SQ 40 mg DAILY BRIE Administration Methylprednisolone Sodium Succinate 40 mg 06/04/18 10:00 Solu-Medrol - IVPUSH DAILY BRIE Nystatin 500,000 units 05/27/18 18:00 06/03/18 13:03 Nystatin Oral Suspension - PO Not Given Q6HPO BRIE Pantoprazole Sodium 40 mg 05/28/18 10:00 06/03/18 09:05 Protonix - PO 40 mg DAILY BRIE Administration Trazodone HCl 50 mg 06/02/18 22:00 06/02/18 22:05 Desyrel - PO 50 mg HS BRIE Administration Valacyclovir HCl 500 mg 05/29/18 11:30 06/03/18 09:04 Valtrex - PO 500 mg BID BRIE Administration Hepatic Panel Total Bilirubin 0.5 mg/dL (0.2-1) 06/03/18 05:30 AST 18 U/L (15-37) 06/03/18 05:30 ALT 14 U/L (13-61) 06/03/18 05:30 Alkaline Phosphatase 41 U/L (45-117) L 06/03/18 05:30 Albumin 2.8 g/dl (3.4-5.0) L 06/03/18 05:30 ASSESSMENT AND PLAN: Patient is a 67yo female with PMhx of COPD , on home O2, HTN, lung cancer ,and breast cancer, who presented with SOB and was found to have acute hypoxic hypercapnic respiratory failure, s/p extubation , unable to be off Bipap. # Acute hypoxic hypercapnic respiratory failure due to COPD exacerbation and PNA. s/p extubation , unable to wean her off the Bipap. Patient is accepted in LTAC, continue solu medrol continue, symbicort , mucomyst and albuterol continue # Oral herpes : cont valcyclovir # HTN: cont norvasc DVT PX: lovenox GI px: PPI discharge to LTAC , when accepted.
[2018-06-03] MEDS: traZODone HCL 50 MG TABLET (FP) PO SCH (22:38)
[2018-06-03] MEDS: CHLORHEXIDINE GLUCONATE 4% CLEANSER FOR DECOLONIZATION TP SCH (22:38)
[2018-06-04] MEDS: NYSTATIN 500,000 UNITS/5 ML SUSPENSION PO SCH ×3 (01:00→12:25)
[2018-06-04 06:01] LABS: BASO % 0.1 % (0-2.0); EOS % 0.2 % (0-4.5); HEMATOCRIT 31.9 % (32.4-45.2); HEMOGLOBIN 10.3 GM/dL (10.7-15.3); LYMPH % 1.3 % (8-40); MCH 27.4 pg (25.7-33.7); MCHC 32.2 g/dl (32.0-36.0); MEAN CELL VOLUME 85.2 fl (80-96); MEAN PLT VOLUME 9.8 fl (7.5-11.1); MONO % 7.7 % (3.8-10.2); NEUT % 90.7 % (42.8-82.8); PLATELET COUNT 223 K/MM3 (134-434); RBC 3.74 M/mm3 (3.60-5.2); RDW 15.6 % (11.6-15.6)
[2018-06-04 06:30] LABS: ALBUMIN 2.8 g/dl (3.4-5.0); ALK PHOS 38 U/L (45-117); ANION GAP 2 MMOL/L (8-16); BILIRUBIN,TOTAL 0.5 mg/dL (0.2-1); BLOOD UREA NITROGEN 37 mg/dL (7-18); CALCIUM 8.9 mg/dL (8.5-10.1); CHLORIDE 104 mmol/L (98-107); CO2 38 mmol/L (21-32); CREATININE 0.6 mg/dL (0.55-1.3); GLUCOSE,RANDOM 81 mg/dL (74-106); MAGNESIUM 2.3 mg/dL (1.8-2.4); PHOSPHOROUS 3.1 mg/dL (2.5-4.9); POTASSIUM 3.9 mmol/L (3.5-5.1); SGOT/AST 13 U/L (15-37); SGPT/ALT 16 U/L (13-61); SODIUM 144 mmol/L (136-145); TOT PROT 5.6 g/dl (6.4-8.2)
--- NOTE | 2018-06-04 08:32 | PN ---
Teaching Attending Note Name of Resident: Lore Vega ATTENDING PHYSICIAN STATEMENT I saw and evaluated the patient. I reviewed the resident's note and discussed the case with the resident. I agree with the resident's findings and plan as documented. SUBJECTIVE: Patient continues to be on BIpap. Unable to wean her off the Bipap. OBJECTIVE: Vital Signs Temperature 98.2 F 06/04/18 06:00 Pulse Rate 91 H 06/04/18 07:43 Respiratory Rate 20 06/04/18 07:43 Blood Pressure 142/94 06/04/18 07:43 O2 Sat by Pulse Oximetry (%) 93 L 06/04/18 07:43 GENERAL: Patient is awake, alert, on bipap, positive for accessory muscle use on and off. HEAD: Normal with no signs of trauma. HEENT: PERRLA, dry mucous membranes NECK: soft, supple, trachea midline LUNGS: decreased breath sounds bilaterally HEART: Regular rate and rhythm, S1, S2 without murmur, rub or gallop. ABDOMEN: Soft, nontender, nondistended, normoactive bowel sounds EXTREMITIES: 2+ pulses, warm, well-perfused, no edema. CBCD WBC 14.0 K/mm3 (4.0-10.0) H 06/04/18 05:30 RBC 3.74 M/mm3 (3.60-5.2) 06/04/18 05:30 Hgb 10.3 GM/dL (10.7-15.3) L 06/04/18 05:30 Hct 31.9 % (32.4-45.2) L 06/04/18 05:30 MCV 85.2 fl (80-96) 06/04/18 05:30 MCHC 32.2 g/dl (32.0-36.0) 06/04/18 05:30 RDW 15.6 % (11.6-15.6) 06/04/18 05:30 Plt Count 223 K/MM3 (134-434) 06/04/18 05:30 MPV 9.8 fl (7.5-11.1) 06/04/18 05:30 CMP Sodium 144 mmol/L (136-145) 06/04/18 05:30 Potassium 3.9 mmol/L (3.5-5.1) 06/04/18 05:30 Chloride 104 mmol/L (98-107) 06/04/18 05:30 Carbon Dioxide 38 mmol/L (21-32) H 06/04/18 05:30 Anion Gap 2 MMOL/L (8-16) L 06/04/18 05:30 BUN 37 mg/dL (7-18) H 06/04/18 05:30 Creatinine 0.6 mg/dL (0.55-1.3) 06/04/18 05:30 Creat Clearance w eGFR > 60 (>60) 06/04/18 05:30 Random Glucose 81 mg/dL (74-106) 06/04/18 05:30 Calcium 8.9 mg/dL (8.5-10.1) 06/04/18 05:30 Total Bilirubin 0.5 mg/dL (0.2-1) 06/04/18 05:30 AST 13 U/L (15-37) L 06/04/18 05:30 ALT 16 U/L (13-61) 06/04/18 05:30 Alkaline Phosphatase 38 U/L (45-117) L 06/04/18 05:30 Total Protein 5.6 g/dl (6.4-8.2) L 06/04/18 05:30 Albumin 2.8 g/dl (3.4-5.0) L 06/04/18 05:30 CARDIAC ENZYMES Troponin I < 0.02 ng/ml (0.00-0.05) 05/19/18 08:18 Current Medications Generic Name Dose Route Start Last Admin Trade Name Freq PRN Reason Stop Dose Admin Acetylcysteine 400 mg 05/24/18 20:00 06/03/18 20:49 Mucomyst 20 Oral / Inh Use Only* NEB Not Given RQID BRIE Albuterol Sulfate 1 amp 05/19/18 11:35 05/25/18 02:45 Ventolin 0.083% Nebulizer Soln - NEB 1 amp Q4H PRN Administration SHORT OF BREATH/WHEEZING Amlodipine Besylate 5 mg 05/20/18 10:00 06/03/18 09:05 Norvasc - PO 5 mg DAILY BRIE Administration Budesonide/Formoterol Fumarate 2 puff 05/26/18 22:00 06/03/18 22:38 Symbicort 160/4.5mcg - IH 2 puff BID BRIE Administration Chlorhexidine Gluconate 1 applic 05/19/18 22:00 06/03/18 22:38 Hibiclens For Decolonization - TP 1 applic HS BRIE Administration Enoxaparin Sodium 40 mg 05/21/18 10:00 06/03/18 09:04 Lovenox - SQ 40 mg DAILY BRIE Administration Methylprednisolone Sodium Succinate 40 mg 06/04/18 10:00 Solu-Medrol - IVPUSH DAILY BRIE Nystatin 500,000 units 05/27/18 18:00 06/04/18 06:38 Nystatin Oral Suspension - PO Not Given Q6HPO BRIE Pantoprazole Sodium 40 mg 05/28/18 10:00 06/03/18 09:05 Protonix - PO 40 mg DAILY BRIE Administration Trazodone HCl 50 mg 06/02/18 22:00 06/03/18 22:38 Desyrel - PO 50 mg HS BRIE Administration Valacyclovir HCl 500 mg 05/29/18 11:30 06/03/18 22:38 Valtrex - PO 500 mg BID BRIE Administration Home Medications Medication Instructions Recorded Amlodipine Besylate [Norvasc -] 5 mg PO DAILY 05/19/18 Acetylcysteine Po/INH 20% 400 mg NEB RQID vial 06/03/18 [Mucomyst 20 Oral / INH Use Only*] Albuterol 0.083% Nebulizer Bhavana 1 amp NEB Q4H PRN amp 06/03/18 [Ventolin 0.083% Nebulizer Soln -] Albuterol 0.083% Nebulizer Bhavana 1 amp NEB RQID amp 06/03/18 [Ventolin 0.083% Nebulizer Soln -] Budesonide/Formeterol Fumarate 2 puff IH BID inhaler 06/03/18 [SYMBICORT 160/4.5mcg -] Methylprednisolone Na Succ 40 mg IVPUSH DAILY vial 06/03/18 [Solu-Medrol -] Pantoprazole Sodium [Protonix -] 40 mg PO DAILY tablet.ec 06/03/18 Valacyclovir HCl [Valtrex -] 500 mg PO BID tablet 06/03/18 traZODone HCL [Desyrel -] 50 mg PO HS tablet 06/03/18 ASSESSMENT AND PLAN: Patient is a 67yo female with PMhx of COPD , on home O2, HTN, lung cancer ,and breast cancer, who presented with SOB and was found to have acute hypoxic hypercapnic respiratory failure, s/p extubation , unable to be off Bipap. # Acute hypoxic hypercapnic respiratory failure due to COPD exacerbation and PNA. s/p extubation , unable to wean her off the Bipap.will continue. Patient is accepted in LTAC, continue solu medrol continue, symbicort , mucomyst and albuterol continue # Oral herpes : cont valcyclovir # HTN: cont norvasc DVT PX: lovenox GI px: PPI discharge to LTAC today.
[2018-06-04] MEDS: ACETYLCYSTEINE 20% 200MG/ML 4 ML VIAL *FOR ORAL / INH USE ONLY NEB SCH ×2 (08:47→12:53)
[2018-06-04] MEDS ORDERED: PT OWN MED DRAWER 7, Y5N ONE (09:20)
[2018-06-04] MEDS: amLODIPine BESYLATE 5 MG TABLET (FP) PO SCH (09:23)
[2018-06-04] MEDS: ENOXAPARIN NA (PORCINE) 40 MG/0.4 ML DISP.SYRIN SQ SCH (09:23)
[2018-06-04] MEDS: PANTOPRAZOLE 40 MG TABLET (FP) PO SCH (09:23)
[2018-06-04] MEDS: valACYclovir HCL 500 MG TABLET (FP) PO SCH (09:24)
[2018-06-04] MEDS ORDERED: methylPREDNISolone NA SUCC 40 MG/1 ML VIAL IVPUSH SCH (10:00)
[2018-06-04 10:45] VITALS: TEMP 97.4
[2018-06-04 12:06] VITALS: BP 144/94; PULSE 104
--- NOTE | 2018-06-04 12:08 | PN ---
Teaching Attending Note Name of Resident: Regina Clark ATTENDING PHYSICIAN STATEMENT I saw and evaluated the patient. I reviewed the resident's note and discussed the case with the resident. I agree with the resident's findings and plan as documented. SUBJECTIVE: Patient seen and examined in the ICU. Remains dependent on NIPPV. Less able to tolerate HF OT. Breathing feels about the same as yesterday. No significant cough or wheezing. CXR: some increase in RLL infiltrates OBJECTIVE: Intake & Output 06/01/18 06/02/18 06/03/18 06/04/18 23:59 23:59 23:59 23:59 Intake Total 400 500 160 50 Output Total 600 10 Balance -200 500 160 40 Weight 110 lb 5 oz 112 lb 9 oz 111 lb 8 oz 111 lb 8.862 oz Last Vital Signs Temp Pulse Resp BP Pulse Ox 97.4 F L 104 H 24 H 144/94 94 L 06/04/18 10:00 06/04/18 12:00 06/04/18 12:00 06/04/18 12:00 06/04/18 08:52 Active Medications Acetylcysteine (Mucomyst 20 Oral / Inh Use Only*) 400 mg NEB RQID [facility] Last Admin: 06/04/18 08:47 Dose: 400 mg Albuterol Sulfate (Ventolin 0.083% Nebulizer Soln -) 1 amp NEB Q4H PRN PRN Reason: SHORT OF BREATH/WHEEZING Last Admin: 05/25/18 02:45 Dose: 1 amp Amlodipine Besylate (Norvasc -) 5 mg PO DAILY [facility] Last Admin: 06/04/18 09:23 Dose: 5 mg Budesonide/Formoterol Fumarate (Symbicort 160/4.5mcg -) 2 puff IH BID [facility] Last Admin: 06/03/18 22:38 Dose: 2 puff Chlorhexidine Gluconate (Hibiclens For Decolonization -) 1 applic TP HS [facility] Last Admin: 06/03/18 22:38 Dose: 1 applic Enoxaparin Sodium (Lovenox -) 40 mg SQ DAILY [facility] Last Admin: 06/04/18 09:23 Dose: 40 mg Methylprednisolone Sodium Succinate (Solu-Medrol -) 40 mg IVPUSH DAILY [facility] Last Admin: 06/04/18 09:24 Dose: 40 mg Nystatin (Nystatin Oral Suspension -) 500,000 units PO Q6HPO [facility] Last Admin: 06/04/18 06:38 Dose: Not Given Pantoprazole Sodium (Protonix -) 40 mg PO DAILY [facility] Last Admin: 06/04/18 09:23 Dose: 40 mg Trazodone HCl (Desyrel -) 50 mg PO HS [facility] Last Admin: 06/03/18 22:38 Dose: 50 mg Valacyclovir HCl (Valtrex -) 500 mg PO BID [facility] Last Admin: 06/04/18 09:24 Dose: 500 mg Gen: Awake and alert, mildly tachypneic on NIPPV support Heart: RRR Lung: distant breath sounds, no wheeze, scattered rhonchi: Right > Left Abd: soft, nontender Ext: no edema Laboratory Results - last 24 hr 06/04/18 06/04/18 05:30 05:30 WBC 14.0 H RBC 3.74 Hgb 10.3 L Hct 31.9 L MCV 85.2 MCH 27.4 MCHC 32.2 RDW 15.6 Plt Count 223 MPV 9.8 Absolute Neuts (auto) 12.7 H Neutrophils % 90.7 H Lymphocytes % 1.3 L D Monocytes % 7.7 D Eosinophils % 0.2 D Basophils % 0.1 Nucleated RBC % 0 Sodium 144 Potassium 3.9 Chloride 104 Carbon Dioxide 38 H Anion Gap 2 L BUN 37 H Creatinine 0.6 Creat Clearance w eGFR > 60 Random Glucose 81 Calcium 8.9 Phosphorus 3.1 Magnesium 2.3 Total Bilirubin 0.5 AST 13 L ALT 16 Alkaline Phosphatase 38 L Total Protein 5.6 L Albumin 2.8 L ASSESSMENT AND PLAN: Acute on Chronic Hypoxic and Hypercapneic Respiratory Failure Pneumonia Severe Sepsis improving ARDS resolving Acute COPD Exacerbation Lactic Acidosis resolved h/o Lung Cancer - NIPPV support as needed to assist in work of breathing - ABX per ID - Follow CXR - Medrol - inhaled bronchodilators - DVT/GI prophylaxis - continue ICU monitoring for tenuous respiratory status - for LTAC placement, will likely require Trach Dr Harris Critical care time spent in reviewing chart, evaluating patient and formulating plan 36 min
--- NOTE | 2018-06-04 13:58 | PN ---
Physical Exam: SUBJECTIVE: Patient seen and examined this morning at bedside. No new complaints. No acute overnight events as per nursing. OBJECTIVE: Vital Signs Period Temp Pulse Resp BP Sys/Sawyer Pulse Ox Last 24 Hr 97.4 F-98.9 F 78-104 15-24 122-144/58-96 93-99 GENERAL: A&Ox3, NAD HEAD: NCAT EYES: PERRL, EOMI ENT: Oropharynx clear without exudates, moist mucous membranes. NECK: No JVD LUNGS: Diffuse rhonchi throughout HEART: Regular rate and rhythm, S1, S2 without murmur ABDOMEN: Soft, nontender, nondistended, + bowel sounds, no guarding EXTREMITIES: 2+ pulses, no edema. NEUROLOGICAL: Cranial nerves II through XII grossly intact. Normal speech SKIN: Warm, dry Laboratory Results - last 24 hr 06/04/18 06/04/18 05:30 05:30 WBC 14.0 H RBC 3.74 Hgb 10.3 L Hct 31.9 L MCV 85.2 MCH 27.4 MCHC 32.2 RDW 15.6 Plt Count 223 MPV 9.8 Absolute Neuts (auto) 12.7 H Neutrophils % 90.7 H Lymphocytes % 1.3 L D Monocytes % 7.7 D Eosinophils % 0.2 D Basophils % 0.1 Nucleated RBC % 0 Sodium 144 Potassium 3.9 Chloride 104 Carbon Dioxide 38 H Anion Gap 2 L BUN 37 H Creatinine 0.6 Creat Clearance w eGFR > 60 Random Glucose 81 Calcium 8.9 Phosphorus 3.1 Magnesium 2.3 Total Bilirubin 0.5 AST 13 L ALT 16 Alkaline Phosphatase 38 L Total Protein 5.6 L Albumin 2.8 L Microbiology 05/19/18 09:00 Nasopharyngeal Aspirate Respiratory Virus (PCR) - Final 05/19/18 08:18 Blood - Peripheral Venous Blood Culture - Final NO GROWTH AFTER 5 DAYS INCUBATION 05/19/18 08:18 Blood - Peripheral Venous Blood Culture - Final NO GROWTH AFTER 5 DAYS INCUBATION 05/19/18 15:09 Sputum - Endotrachea Suction/Ventilator Gram Stain - Final 05/19/18 15:09 Sputum - Endotrachea Suction/Ventilator Sputum Culture - Final Streptococcus Pneumoniae Staphylococcus Aureus 05/19/18 15:09 Urine - Urine - Catheterized Legionella Antigen - Final 05/19/18 15:09 Urine - Urine - Catheterized Streptococcus pneumoniae Antigen (M - Final 05/19/18 08:30 Urine - Urine Clean Catch Urine Culture - Final NO GROWTH OBTAINED Active Medications Acetylcysteine (Mucomyst 20 Oral / Inh Use Only*) 400 mg NEB RQID [facility] Last Admin: 06/04/18 12:53 Dose: Not Given Albuterol Sulfate (Ventolin 0.083% Nebulizer Soln -) 1 amp NEB Q4H PRN PRN Reason: SHORT OF BREATH/WHEEZING Last Admin: 05/25/18 02:45 Dose: 1 amp Amlodipine Besylate (Norvasc -) 5 mg PO DAILY [facility] Last Admin: 06/04/18 09:23 Dose: 5 mg Budesonide/Formoterol Fumarate (Symbicort 160/4.5mcg -) 2 puff IH BID [facility] Last Admin: 06/03/18 22:38 Dose: 2 puff Chlorhexidine Gluconate (Hibiclens For Decolonization -) 1 applic TP [facility] Last Admin: 06/03/18 22:38 Dose: 1 applic Enoxaparin Sodium (Lovenox -) 40 mg SQ DAILY [facility] Last Admin: 06/04/18 09:23 Dose: 40 mg Methylprednisolone Sodium Succinate (Solu-Medrol -) 40 mg IVPUSH DAILY [facility] Last Admin: 06/04/18 09:24 Dose: 40 mg Nystatin (Nystatin Oral Suspension -) 500,000 units PO Q6HPO [facility] Last Admin: 06/04/18 12:25 Dose: Not Given Pantoprazole Sodium (Protonix -) 40 mg PO DAILY [facility] Last Admin: 06/04/18 09:23 Dose: 40 mg Trazodone HCl (Desyrel -) 50 mg PO HS [facility] Last Admin: 06/03/18 22:38 Dose: 50 mg Valacyclovir HCl (Valtrex -) 500 mg PO BID [facility] Last Admin: 06/04/18 09:24 Dose: 500 mg ASSESSMENT/PLAN: 67 y/o F with PMHx COPD (on 2L O2), breast and lung Ca, perforated ulcer, prior intubation admitted to ICU in septic shock with acute on chronic respiratory failure 2/2 PNA. #Pulmonary Acute on Chronic Hypoxic and Hypercapneic Respiratory Failure -Likely due to Acute COPD exacerbation, bilateral pneumonia -s/p extubation (on 05/25) -Attempt to start HFOT; Will taper flow rate, FiO2 to keep SpO2 > 90% -Continue NIPPV PRN (Settings 18/7/14/60%) -Continue Solumedrol to 40mg Daily, Albeuterol QID and PRN, Symbicort, Acetylcysteine -Chest PT -CXR (06/02): Bibasilar changes, Increased on the Right -If unable to wean from HFOT, Family would like to explore possible LTAC options #Cardio HTN -Continue Home dose Amlodipine -Maintaining MAP off pressors #ID Severe Sepsis, Improving -Likely due to b/l PNA -ID (Dr. Roach) Consulted -Urine Pneumococcal antigen positive -Sputum cx positive for S pneumo and S aureus -RSV, Blood cx, Urine cx negative -Ceftriaxone (Course completed 06/03) Oral Herpes -Valacyclovir Course completed #Neuro -A&Ox3, No Active problems -Continue to monitor -PT consulted -OOB w/ PT #FEN -PO Fluids -Lytes WNL -Dysphagia puree w/ thin liquids, Magic Cup, No Soy products #PPx -DVT: Lovenox -GI: Protonix #Code Status -Full Code Dispo: For LTAC today Visit type - Emergency Visit Emergency Visit: Yes ED Registration Date: 05/19/18 Care time: The patient presented to the Emergency Department on the above date and was hospitalized for further evaluation of their emergent condition. - New Patient This patient is new to me today: Yes Date on this admission: 06/04/18 - Critical Care Critical Care patient: Yes Total Critical Care Time (in minutes): 36 Critical Care Statement: The care of this patient involved high complexity decision making to prevent further life threatening deterioration of the patient 's condition and/or to evaluate & treat vital organ system(s) failure or risk of failure.
--- NOTE | 2018-06-04 15:59 | DS ---
Physical Exam: SUBJECTIVE: Patient seen and examined at bedside this morning. No acute events overnight. Patient remains on bipap. OBJECTIVE: Vital Signs Temperature 97.4 F L 06/04/18 10:00 Pulse Rate 104 H 06/04/18 12:00 Respiratory Rate 24 H 06/04/18 12:00 Blood Pressure 144/94 06/04/18 12:00 O2 Sat by Pulse Oximetry (%) 99 06/04/18 12:51 PHYSICAL EXAM GENERAL: Patient is awake, alert, on bipap, +accessory muscle use HEAD: Normal with no signs of trauma. HEENT: PERRLA, dry mucous membranes NECK: soft, supple, trachea midline LUNGS: decreased breath sounds bilaterally, +scattered wheezes HEART: Regular rate and rhythm, S1, S2 without murmur, rub or gallop. ABDOMEN: Soft, nontender, nondistended, normoactive bowel sounds EXTREMITIES: 2+ pulses, warm, well-perfused, no edema. LABS Laboratory Results - last 24 hr 06/04/18 06/04/18 05:30 05:30 WBC 14.0 H RBC 3.74 Hgb 10.3 L Hct 31.9 L MCV 85.2 MCH 27.4 MCHC 32.2 RDW 15.6 Plt Count 223 MPV 9.8 Absolute Neuts (auto) 12.7 H Neutrophils % 90.7 H Lymphocytes % 1.3 L D Monocytes % 7.7 D Eosinophils % 0.2 D Basophils % 0.1 Nucleated RBC % 0 Sodium 144 Potassium 3.9 Chloride 104 Carbon Dioxide 38 H Anion Gap 2 L BUN 37 H Creatinine 0.6 Creat Clearance w eGFR > 60 Random Glucose 81 Calcium 8.9 Phosphorus 3.1 Magnesium 2.3 Total Bilirubin 0.5 AST 13 L ALT 16 Alkaline Phosphatase 38 L Total Protein 5.6 L Albumin 2.8 L Microbiology 05/19/18 09:00 Nasopharyngeal Aspirate Respiratory Virus (PCR) - Final 05/19/18 08:18 Blood - Peripheral Venous Blood Culture - Final NO GROWTH AFTER 5 DAYS INCUBATION 05/19/18 08:18 Blood - Peripheral Venous Blood Culture - Final NO GROWTH AFTER 5 DAYS INCUBATION 05/19/18 15:09 Sputum - Endotrachea Suction/Ventilator Gram Stain - Final 05/19/18 15:09 Sputum - Endotrachea Suction/Ventilator Sputum Culture - Final Streptococcus Pneumoniae Staphylococcus Aureus 05/19/18 15:09 Urine - Urine - Catheterized Legionella Antigen - Final 05/19/18 15:09 Urine - Urine - Catheterized Streptococcus pneumoniae Antigen (M - Final 05/19/18 08:30 Urine - Urine Clean Catch Urine Culture - Final NO GROWTH OBTAINED HOSPITAL COURSE: Date of Admission:05/19/18 Date of Discharge: 06/04/18 Patient is a 67 year old female with past medical history of COPD with hx of intubation, breast and lung CA, perforated ulcer, HTN, presented with worsening shortness of breath with increased sputum production for a few days. Upon arrival at the ED, patient placed on bipap. CXR revealed bilateral pneumonia. Patient was started on Solu-medrol, duonebs, azithromycin/ceftriaxone. Patient was admitted to the ICU. ID and pulmonology consulted. Patient decompensated and required intubation. Patient also became hypotensive that required vasopressors. Sputum cultures revealed Strep pneumoniae and STaph aureus and was continued on Ceftriaxone for 14 days. Patient slowly recovered, and was able to maintain blood pressure off the pressors. Respiratory status slowly improved as well and patient was extubated and placed on bipap/HFOT. Solu- medrol was slowly tapered, but patient could not be weaned off the bipap/high flow. Patient was transferred to [facility] for [facility] acute care. Minutes to complete discharge: 40 Discharge Summary Reason For Visit: RESP DISTRESS,RESP FAILURE,COPD,PNEUMONIA Condition: Guarded - Instructions Diet, Activity, Other Instructions: Your visit You were admitted to the hospital because you had shortness of breath. You were found to have flare-up of your COPD and Pneumonia. You were initially intubated and given steroids, nebulizations and antibiotics. Once better, you were then placed on bipap and high flow oxygen. You will be transferred to a hospital in [place], [place] where you will receive usp acute care. Medications Please continue the following medications: 1. IV solu-medrol 40mg once a day. 2. Mucomyst 400mg 4 times a day. 3. Albuterol nebulization with Mucomyst and every 4 hours as needed for shortness of breath. 4. Symbicort 2 puffs twice a day. 5. Protonix 40mg daily. 6. Trazodone 50mg daily at bedtime. 7. Valacyclovir 500mg twice a day. 8. Amlodipine 5 mg daily. Follow-up -Please make sure to follow-up with your primary care physician for your primary care needs. Additional info Call 911 or go to the ED if with worsening shortness of breath, chest pain, fever, chills, headache, nausea, vomiting, diarrhea, or any new concerns noted. Referrals: Stoney Low [Non Staff, Medical] - Doroteo Harris MD [Staff Physician] - Disposition: TRANSFER ACUTE CARE/OTHER HOSP - Home Medications Comprehensive Discharge Medication List: Ambulatory Orders Amlodipine Besylate [Norvasc -] 5 mg PO DAILY 05/19/18 Acetylcysteine Po/INH 20% [Mucomyst 20 Oral / INH Use Only*] 400 mg NEB RQID vial 06/03/18 Albuterol 0.083% Nebulizer Bhavana [Ventolin 0.083% Nebulizer Soln -] 1 amp NEB Q4H PRN amp 06/03/18 Albuterol 0.083% Nebulizer Bhavana [Ventolin 0.083% Nebulizer Soln -] 1 amp NEB RQID amp 06/03/18 Budesonide/Formeterol Fumarate [SYMBICORT 160/4.5mcg -] 2 puff IH BID inhaler 06/03/18 Methylprednisolone Na Succ [Solu-Medrol -] 40 mg IVPUSH DAILY vial 06/03/18 Pantoprazole Sodium [Protonix -] 40 mg PO DAILY tablet.ec 06/03/18 Valacyclovir HCl [Valtrex -] 500 mg PO BID tablet 06/03/18 traZODone HCL [Desyrel -] 50 mg PO HS tablet 06/03/18 This patient is new to me today: No Emergency Visit: Yes ED Registration Date: 05/19/18 Care time: The patient presented to the Emergency Department on the above date and was hospitalized for further evaluation of their emergent condition. Critical Care patient: Yes Total Critical Care Time (in minutes): 40 Critical Care Statement: The care of this patient involved high complexity decision making to prevent further life threatening deterioration of the patient 's condition and/or to evaluate & treat vital organ system(s) failure or risk of failure. - Discharge Referral Referred to [facility] Med [facility].C.: No
--- NOTE | 2018-07-03 13:10 | EKG ---
Test Reason : Blood Pressure : / mmHG Vent. Rate : 097 BPM Atrial Rate : 097 BPM P-R Int : 124 ms QRS Dur : 070 ms QT Int : 314 ms P-R-T Axes : 087 069 073 degrees QTc Int : 398 ms NORMAL SINUS RHYTHM POSSIBLE LEFT ATRIAL ENLARGEMENT POOR R WAVE PROGRESSION Confirmed by LAUREN RUBIN MD ([id number]) on 07/03/2018 1:09:59 PM Referred By: Confirmed By:LAUREN RUBIN MD
== END 2018-06-04 15:40 | disposition short-term general hospital (02) | DRG 870 ==
LOC: JER 08:14 → JERBED 09:47 → JICU 11:03 → UNDODISIN 06-04 14:43
PROVIDERS: ADMIT Internal Medicine; ATTEND Internal Medicine
PROC: 5A1955Z Respiratory Ventilation, Greater than 96 Consecutive Hours (ICD-10-PCS; principal; 2018-05-19)
PROC: 0BH17EZ Insertion of Endotracheal Airway into Trachea, Via Natural or Artificial Opening (ICD-10-PCS; 2018-05-19)
PROC: 3E0F7GC Introduction of Other Therapeutic Substance into Respiratory Tract, Via Natural or Artificial Opening (ICD-10-PCS; 2018-05-19)
PROC: 5A09357 Assistance with Respiratory Ventilation, Less than 24 Consecutive Hours, Continuous Positive Airway Pressure (ICD-10-PCS; 2018-05-19)
PROC: 05HM33Z Insertion of Infusion Device into Right Internal Jugular Vein, Percutaneous Approach (ICD-10-PCS; 2018-05-19)
PROC: B513ZZA Fluoroscopy of Right Jugular Veins, Guidance (ICD-10-PCS; 2018-05-19)
PROC: 5A09557 Assistance with Respiratory Ventilation, Greater than 96 Consecutive Hours, Continuous Positive Airway Pressure (ICD-10-PCS; 2018-05-24)
DX: A41.9 Sepsis, unspecified organism (principal); J13 Pneumonia due to Streptococcus pneumoniae; R65.21 Severe sepsis with septic shock; J96.22 Acute and chronic respiratory failure with hypercapnia; J96.21 Acute and chronic respiratory failure with hypoxia; J44.1 Chronic obstructive pulmonary disease with (acute) exacerbation; E87.0 Hyperosmolality and hypernatremia; B00.1 Herpesviral vesicular dermatitis; B95.61 Methicillin susceptible Staphylococcus aureus infection as the cause of diseases classified elsewhere; D72.829 Elevated white blood cell count, unspecified; Z85.3 Personal history of malignant neoplasm of breast; Z85.118 Personal history of other malignant neoplasm of bronchus and lung; Z87.11 Personal history of peptic ulcer disease; Z87.891 Personal history of nicotine dependence; Z99.81 Dependence on supplemental oxygen
CPT/HCPCS: 31500; 36415; 36600; 71045-TC-FY; 80048; 80053; 81003; 81015; 82375; 82803; 82962; 83050; 83605; 83735; 84100; 84484; 85025; 85027; 85610; 85730; 87040; 87070; 87086; 87186; 87205; 87633; 87804; 87899; 93005; 93010; 93306-TC; 93970-TC; 94002; 94640; 94660; 97116-GP; 97161-GP; 99285-25; G0480; J1644; J7030

== ENCOUNTER 2019-02-26 12:02 | Inpatient (IN) | payer OTHER ==
[2019-02-26] MEDS ORDERED: ALBUTEROL SO4 2.5/IPRATROPIUM 0.5 INH SOL 3 ML VIAL.NEB. NEB ONE ×4 (12:10→21:11)
[2019-02-26] MEDS ORDERED: MAGNESIUM SULF 50% (8.12 MEQ/2 ML-1 GM VIAL) IVPB ONE (12:10)
--- NOTE | 2019-02-26 12:12 | PDOC ---
History of Present Illness - General Chief Complaint: Shortness of Breath Stated Complaint: SHORTNESS OF BREATH Time Seen by Provider: 02/26/19 12:10 - History of Present Illness Initial Comments: 02/26/19 13:06 68 year old woman with a history of HTN, COPD (previously intubated), lung and breast cancer, gasrtic ulcers who presents for shortness of breath that has been progressing since last night. Per the patient had been having productive nonbloody cough for the past 4 months. Denies any fevers. The patient used prednisone at home prior to calling EMS. En route she was given decadron and started on duoneb. On arrival patient is tachypneic, abdominal breathing, sat on 88 on 2L on combivent. During interview patient became increasingly less responsive, tripoding, non verbal Plan to intubate with blu and etomidate 7.5 tube, 20 at the lip ROS - limited 2/2 resp distress CARDIOVASCULAR: + shortness of breath RESPIRATORY: + cough, wheezing, or hemoptysis. PE GENERAL: significant work of breathing, tripod position HEAD: No signs of trauma, normocephalic, atraumatic EYES: PERRLA, EOMI, sclera anicteric, conjunctiva clear ENT: Moist mucosa on combivent NECK: Normal ROM, supple LUNGS: No distress, speaks full sentences, decreased breath sounds throughout with occasional rales HEART: Regular rate and rhythm, normal S1 and S2, no murmurs, rubs or gallops, peripheral pulses normal and equal bilaterally. ABDOMEN: Soft, nontender, No guarding, no rebound. No masses EXTREMITIES : Normal inspection, Normal range of motion, no edema. No clubbing or cyanosis. NEUROLOGICAL: limited assessment 2/2 participation and respiratory distress SKIN: Warm, Dry, normal turgor, no rashes or lesions noted MDM DDX including but not limited to: respiratory failure 2/2 copd exacerb vs pna vs mass r/o acs W/U: - sepsis workup ED Course: Patient intubated cxr with possible L base infiltrate, et tube and ng tube in place vanc and zosyn started vbg showed acidosis and hypercapnia cbc with significant leukocytosis Resident Dr. youngblood from ICU made aware of patient Patient admitted Barby Poe, PGY2 Emergency Medicine Past History - Past Medical History Allergies/Adverse Reactions: Allergies Allergy/AdvReac Type Severity Reaction Status Date / Time No Known Allergies Allergy Verified 02/26/19 12:12 Home Medications: Ambulatory Orders Amlodipine Besylate [Norvasc -] 5 mg PO DAILY 05/19/18 Albuterol 0.083% Nebulizer Bhavana [Ventolin 0.083% Nebulizer Soln -] 1 amp NEB RQID amp 06/03/18 Budesonide/Formeterol Fumarate [SYMBICORT 160/4.5mcg -] 2 puff IH BID inhaler 06/03/18 Pantoprazole Sodium [Protonix -] 40 mg PO DAILY tablet.ec 06/03/18 Valacyclovir HCl [Valtrex -] 500 mg PO BID tablet 06/03/18 traZODone HCL [Desyrel -] 50 mg PO HS tablet 06/03/18 Cancer: Yes (RIGHT BREAST, RIGHT LUNG) Cardiac Disorders: Yes (sob) COPD: Yes CHF: No Diabetes: No GI Disorders: Yes (gastric ulcers) HTN: No Hypercholesterolemia: No - Surgical History Abdominal Surgery: Yes (RUPTURED ULCER) Lung Surgery: (wedge resection right lung) - Psycho Social/Smoking Cessation Hx Smoking Status: Yes Smoking History: Former smoker (quit about 15 years ago) Have you smoked in the past 12 months: No Number of Cigarettes Smoked Daily: 0 If you are a former smoker, when did you quit?: 2009 Hx Alcohol Use: No Drug/Substance Use Hx: Yes (marijuana per patient, "once in a while.") Procedures - Central Line Central Line Lumen: triple Central Line Position: internal jugular (R) Anesthesia: 1% Lidocaine Amount of anesthesia (ccs): 2 Complications: none Post Central Line Insertion: sutured, good blood return, position confirmed w/ CXR - Intubation Time of Intubation: 12:30 Intubation Method: orotracheal Blade used: Mac Tube Size (Fr): 7.5 Medications: Etomidate, Rocuronium Tube position @ lip (cm): 20 Tube position confirmed by: Direct visualization Breath Sounds after Intubation: equal Intubation Complications: no complications Post Intubation Xray: Yes ED Treatment Course - LABORATORY CBC & Chemistry Diagram: 03/05/19 05:10 03/05/19 05:10 Discharge - Discharge Information Problems reviewed: Yes Clinical Impression/Diagnosis: Respiratory distress Condition: Fair - Admission Yes - Follow up/Referral - Patient Discharge Instructions - Post Discharge Activity
[2019-02-26] MEDS ORDERED: MAGNESIUM 1GM/D5W - 1 GM/100 ML IVPB IVPB ONE (12:16)
[2019-02-26] MEDS ORDERED: MIDAZOLAM IN 0.9 % SOD.CHLORID 1 MG/1 ML PLAST..BAG ONE (12:38)
[2019-02-26] MEDS ORDERED: fentaNYL CITRATE 250 MCG/5 ML VIAL ONE ×3 (12:40→21:58)
[2019-02-26] MEDS ORDERED: ROCURONIUM BROMIDE 50 MG/5 ML VIAL IVPUSH ONE (12:44)
[2019-02-26] MEDS ORDERED: ETOMIDATE 40 MG/20 ML VIAL IVPUSH ONE (12:44)
[2019-02-26] MEDS ORDERED: SODIUM CHLORIDE 1,000 ML IV ONE (12:44)
[2019-02-26 12:57] LABS: VENOUS PO2 56.9 mmHg (28-48)
[2019-02-26] MEDS: MIDAZOLAM 100 MG in SODIUM CHLORIDE 100 ML IVPB SCH (12:57)
[2019-02-26 12:59] LABS: VENOUS PC02 95.6 mmHg (38-52); VENOUS PH 7.13 (7.31-7.41)
[2019-02-26] MEDS ORDERED: SODIUM CHLORIDE 1,000 ML IV STA (13:09)
--- NOTE | 2019-02-26 13:12 | PDOC ---
Documentation entered by Nadiya Kumar SCRIBE, acting as scribe for Jagdeep Knapp MD. Jagdeep Knapp MD: This documentation has been prepared by the Stacy lizarraga Adrianna, SCRIBE, under my direction and personally reviewed by me in its entirety. I confirm that the documentation accurately reflects all work, treatment, procedures, and medical decision making performed by me. Attending Attestation - Resident Resident Name: Barby Poe - ED Attending Attestation I have performed the following: I have examined & evaluated the patient, The case was reviewed & discussed with the resident, I agree w/resident's findings & plan, Exceptions are as noted - HPI HPI: 02/26/19 12:55 67y hx of COPD (on2L of NC), breast ca, lung ca, gastric ulcers presents for evaluation of SOB. Per , the pt was well yesterday morning, had [place] [employer] [place] and when they got home, she began to feel SOB. It has gotten worse and worse since then. the pt used her albuterol at home and prednisone without significant improvement. EMS was called, noted she was hypoxic to 88% on 2L and tachy to the 130s, was tripoding, pt was given dexamethasone, combivent. - Physicial Exam PE: 02/26/19 13:08 GENERAL: The patient is awake, alert, and fully oriented, Nontoxic - in no acute distress. HEAD: Normocephalic, atraumatic. EYES: extraocular movements intact, sclera anicteric, conjunctiva clear. ENT: Normal voice, Moist mucous membranes. NECK: Normal range of motion, supple LUNGS: Breath sounds equal, clear to auscultation bilaterally. No wheezes, no rhonchi, no rales. HEART: Regular rate and rhythm, without murmur, rub or gallop. ABDOMEN: Soft, nontender, No guarding, no rebound.No CVA tenderness EXTREMITIES: Normal range of motion, no edema. No cyanosis. No erythema, or tenderness. NEUROLOGICAL: No facial assymetry, Normal speech, PSYCH: Normal mood, normal affect. SKIN: Warm, Dry, normal turgor - Critical Care Time Total Critical Care Time: 45 Critical Care Statement: The care of this patient involved high complexity decision making to prevent further life threatening deterioration of the patient 's condition and/or to evaluate & treat vital organ system(s) failure or risk of failure. - Medical Decision Making 02/26/19 13:08 Upon arrival, the pt was tachypnic at 30, tachy to 140 (NSR on ekg), tripoding, barely speaking 1 word sentences. she had poor air movement, deminished breath sounds in the L lung and rales at the R base. She was started on bipap and became more and more altered and less responsive. Decision was made to intubate the patient and this was discussed with the pts . The pt was given 20mg of etomidate and 50mg of roccuronium and pt was intubated by resident Rojas without significant difficulty. Pt maintained o2 sat of 97% throughout. Breath sounds b/l. post intubation Cxr shows that her tube is well positioned above the casey and NGT is past the diaphragm After intubation, the pts bp dropped to as low as 70s/50s. she was given 2L of NS with improvement of her bp to 100s/80s. Pt was started on versed 1.5mg/hr for sedation 02/26/19 13:10 02/26/19 13:53 pts labs reviewed noted fo rleukocytosis cxr also noted for pna in L base will start broad spectrum abx will admit for further mangemnt pts bp stable at 90/75. 02/26/19 15:25 pts BP trending lower will need to place a central line consent obtained from pt given 2x push dose 100mcg of phenylephrine for bpu support, then we started a levophed gtt pheripherally while we are placing a central line 02/26/19 16:44 central line was placed by resident poe. placeent confirmed w cxr I was present during insertion of the central line. pt started on levaphed with improvement of bp will titreate as needed Heart Score/ECG Review - ECG Impressions Comment:: 02/26/19 13:11 EKG interpreted by myself Rate of 144, regular rate nonspecific ST wave changes normal axis imp: sinus tachycardia
[2019-02-26 13:20] LABS: HEMOGLOBIN 12.2 GM/dL (10.7-15.3); LYMPH % 3.5 % (8-40); MCH 26.2 pg (25.7-33.7); MCHC 31.3 g/dl (32.0-36.0); MEAN CELL VOLUME 83.6 fl (80-96); MEAN PLT VOLUME 11.1 fl (7.5-11.1); MONO % 8.8 % (3.8-10.2); NEUT % 87.7 % (42.8-82.8); PLATELET COUNT 221 K/MM3 (134-434); RBC 4.67 M/mm3 (3.60-5.2); RDW 16.4 % (11.6-15.6); WHITE BLOOD COUNT 21.3 K/mm3 (4.0-10.0)
[2019-02-26] MEDS ORDERED: CEFTRIAXONE 1 GM in DEXTROSE 5%-WATER - 50 ML IVPB ONE (13:34)
[2019-02-26] MEDS ORDERED: PIPERACILLIN/TAZOB 3.375 GM 3.375 GM in DEXTROSE 5%-WATER - 50 ML IVPB ONE (13:35)
[2019-02-26] MEDS ORDERED: VANCOMYCIN 1,000 MG in DEXTROSE 5%-WATER - 250 ML IVPB ONE (13:35)
[2019-02-26 13:39] LABS: ALBUMIN 3.7 g/dl (3.4-5.0); ALK PHOS 59 U/L (45-117); ANION GAP 9 MMOL/L (8-16); BILIRUBIN,TOTAL 0.7 mg/dL (0.2-1); BLOOD UREA NITROGEN 17.9 mg/dL (7-18); CHLORIDE 99 mmol/L (98-107); CO2 29 mmol/L (21-32); CREATININE 0.8 mg/dL (0.55-1.3); GLUCOSE,RANDOM 171 mg/dL (74-106); POTASSIUM 3.6 mmol/L (3.5-5.1); SGOT/AST 16 U/L (15-37); SGPT/ALT 14 U/L (13-61); SODIUM 137 mmol/L (136-145); TOT PROT 7.5 g/dl (6.4-8.2)
[2019-02-26] MEDS ORDERED: PIPERACILLIN/TAZOB 3.375 GM 3.375 GM/50 ML BAG IVPB ONE (13:42)
[2019-02-26 13:45] LABS: INR 1.31 (0.83-1.09); PROTHROMBIN TIME (PATIENT) 15.5 SEC (9.7-13.0)
[2019-02-26 13:48] LABS: ACTIVATED PTT 40.4 SECONDS (25.2-36.5)
--- NOTE | 2019-02-26 13:51 | CONSULT ---
Consultation: REQUESTING PROVIDER:ED team CONSULT REQUEST: We have been asked to medically evaluate this patient for ( COPD exacerbation acute respiratory failure ). HISTORY OF PRESENT ILLNESS: 67y hx of COPD (on2L of NC), breast ca, lung ca, gastric ulcers presents for evaluation of SOB. Per , the pt was well yesterday morning, had gone to the [employer] and when they got home, she began to feel SOB. It has gotten worse and worse since then. the pt used her albuterol at home and prednisone without significant improvement. EMS was called, noted she was hypoxic to 88% on 2L and tachy to the 130s, was tripoding, pt was given dexamethasone, combivent. pt was intubated in ED due to respiratory acidosis and AMS andwas admitted to ICU for monitoring. family at bed side , denies any fever, chills , any recent cold or sick contact , denies any headache, chest pain or SOB , denies any swelling in her legs. PAST MEDICAL HISTORY: as above PAST SURGICAL HISTORY: brain aneurysm-s/p clip 1999, gastric perforation 1981, Social History: Smoking:smoked "a lot", quit 15 years ago Alcohol:occasional alcohol Drugs:no drugs Lives with , 1 daughter Family History: mother: brain aneurysm father: stroke daughter: healthy REVIEW OF SYSTEMS: not able to obtain family denies any recent symptoms except SOB , lethargic and drowsiness , difficulty breathing PHYSICAL EXAMINATION Vital Signs - 24 hr 02/26/19 02/26/19 12:09 12:30 Pulse Rate 144 H Respiratory 30 H 20 Rate Blood Pressure 140/70 O2 Sat by Pulse 90 L Oximetry (%) GENERAL: intubated sedated HEAD: NC/AT , exophthalmus EYES: Pupils equal, round and reactive to light on right ,left wide fixed pupil ENT: Moist mucous membranes. NECK: Supple , No JVD LUNGS: coarse breath sounds , decrease breath sounds at wendy bases HEART: sinuc tachy ABDOMEN: Soft, nontender, not distended, normoactive bowel sounds, med surgical scar LOWER EXTREMITIES: 2+ pulses, warm, well-perfused. . No peripheral edema. NEUROLOGICAL: no focal deficit . Laboratory Results - last 24 hr 02/26/19 02/26/19 02/26/19 12:00 12:00 12:00 WBC 21.3 H RBC 4.67 Hgb 12.2 Hct 39.0 D MCV 83.6 MCH 26.2 MCHC 31.3 L RDW 16.4 H Plt Count 221 MPV 11.1 D Absolute Neuts (auto) 18.7 H Neutrophils % 87.7 H Lymphocytes % 3.5 L D Monocytes % 8.8 Eosinophils % 0.0 D Basophils % 0.0 Nucleated RBC % 0 PT with INR 15.50 H INR 1.31 H PTT (Actin FS) 40.4 H VBG pH POC VBG pCO2 POC VBG pO2 VBG HCO3 VBG O2 Sat (Brittney) VBG Base Excess Sodium Potassium Chloride Carbon Dioxide Anion Gap BUN Creatinine Est GFR (CKD-EPI)AfAm Est GFR (CKD-EPI)NonAf Random Glucose Lactic Acid Calcium Total Bilirubin AST ALT Alkaline Phosphatase Troponin I < 0.02 Total Protein Albumin 02/26/19 02/26/19 02/26/19 12:00 12:00 12:40 WBC RBC Hgb Hct MCV MCH MCHC RDW Plt Count MPV Absolute Neuts (auto) Neutrophils % Lymphocytes % Monocytes % Eosinophils % Basophils % Nucleated RBC % PT with INR INR PTT (Actin FS) VBG pH 7.13 L* POC VBG pCO2 95.6 H* POC VBG pO2 56.9 H VBG HCO3 30.3 H VBG O2 Sat (Brittney) 78.2 VBG Base Excess -1.5 Sodium 137 Potassium 3.6 Chloride 99 Carbon Dioxide 29 Anion Gap 9 BUN 17.9 Creatinine 0.8 Est GFR (CKD-EPI)AfAm 88.42 Est GFR (CKD-EPI)NonAf 76.29 Random Glucose 171 H Lactic Acid 2.3 H* Calcium 9.0 Total Bilirubin 0.7 AST 16 ALT 14 Alkaline Phosphatase 59 Troponin I Total Protein 7.5 Albumin 3.7 Active Medications Generic Name Dose Route Start Last Admin Trade Name Freq PRN Reason Stop Dose Admin Midazolam HCl 100 mg/ Sodium 100 mls @ 1 mls/hr 02/26/19 13:00 02/26/19 12:57 Chloride IVPB 1 mg/hr TITR BRIE 1 mls/hr Administration Protocol 1 MG/HR Sodium Chloride 1,000 mls @ 1,000 mls/hr 02/26/19 13:09 02/26/19 13:36 Normal Saline - IV 02/26/19 14:08 1,000 mls/hr ASDIR STA Administration Vancomycin HCl 1,000 mg/ 250 mls @ 166.667 mls/hr 02/26/19 13:35 Dextrose IVPB 02/26/19 15:04 ONCE ONE Piperacillin Sod/Tazobactam 50 mls @ 100 mls/hr 02/26/19 13:35 Sod 3.375 gm/ Dextrose IVPB 02/26/19 14:04 ONCE ONE Protocol CBC, BMP 02/26/19 12:00 02/26/19 12:00 ASSESSMENT/PLAN: The patient is a 67 year old female with a significant PMH of COPD on 2 L Oxygen at home, h/o of intubation for COPD, HTN, left sided lung Ca, s/p surgery 2013, right breast Ca, s/p radiation in 2009 BIBA for SOB and cough for few days, was found in ED to be in acute respiratory distress with AMS and was intubated and admitted to ICU for COPD exacerbation . #Acute hypoxic hypercapnic resp failure likley due to copd exacerbation R.o PNA vs malignancy # Lactic Acidosis #h/o Lung Cancer # Sever sepsis 2/2 PNA * likely caused by pneumonia, COPD exacerbation, CXR with left base sided infiltrate, right base effusion * continue Duonebs PRN and BRIE * will continue Solu-medrol 60 mg Q8H * continue AZT/Ceftiaxone * f/u ABG: last one pH on vent setting V 350 PEEP 5 Fio2 100 RR 12, will f/u next one * Flu swab , Legionella ag, * sputum culture * f/u blood/urine culture * given 3 L of NS, start NS @ 100 CC/hr * ID consulted, will f/u recommendations * Maintain O2 Sat > 88-90 * maintain MAp > 65 * pt intubated * low tidal volume ventilation 6cc/kg/IBW * keep Pplat <30 # Acute metabolic encephalopathy likely due to acute respiratory distress * TSH , B12, folic acid , CT head #HTN: * hold Norvasc 5 mg daily * ECHO ordered t o assess LV function #DVT PPX: * Heparin sq #F/E/N; * NS @ 100 C/hr * Monitor lytes * NPO Dispo: * ICU Dispo: We will continue to follow the patient. Thank you for this consultative opportunity. Visit type - Emergency Visit Emergency Visit: Yes Care time: The patient presented to the Emergency Department on the above date and was hospitalized for further evaluation of their emergent condition. - New Patient This patient is new to me today: Yes Date on this admission: 02/26/19 - Critical Care Critical Care patient: Yes Total Critical Care Time (in minutes): 45 Critical Care Statement: The care of this patient involved high complexity decision making to prevent further life threatening deterioration of the patient 's condition and/or to evaluate & treat vital organ system(s) failure or risk of failure. ATTENDING PHYSICIAN STATEMENT I saw and evaluated the patient. I reviewed the resident's note and discussed the case with the resident. I agree with the resident's findings and plan as documented. SUBJECTIVE: OBJECTIVE: ASSESSMENT AND PLAN:
[2019-02-26] MEDS ORDERED: SODIUM CHLORIDE 1,000 ML IV SCH (14:30)
[2019-02-26] MEDS ORDERED: HEPARIN NA (PORCINE) 5,000 UNITS/ML 1ML VIAL SQ SCH (14:30)
[2019-02-26 14:47] LABS: EPI CELLS 5.1 /HPF (0-5/HPF); HYALINE CASTS 24 /lpf (0-8); PH,URINE 5.5 (5.0-8.0); URINE APPEARANCE CLEAR; URINE BILIRUBIN NEGATIVE (NEGATIVE); URINE COLOR YELLOW; URINE GLUCOSE (UA) NEGATIVE (NEGATIVE); URINE KETONE TRACE (NEGATIVE); URINE LEUK ESTERASE NEGATIVE (NEGATIVE); URINE NITRITE NEGATIVE (NEGATIVE); URINE PROTEIN 2+ (NEGATIVE); URINE WBC 1 /hpf (0-5)
[2019-02-26] MEDS ORDERED: PHENYLEPHRINE HCL 10 MG/1 ML SINGLE DOSE VIAL IVPB ONE (14:48)
--- NOTE | 2019-02-26 14:52 | EKG ---
Test Reason : Blood Pressure : / mmHG Vent. Rate : 144 BPM Atrial Rate : 144 BPM P-R Int : 128 ms QRS Dur : 078 ms QT Int : 344 ms P-R-T Axes : 081 073 080 degrees QTc Int : 532 ms POOR DATA QUALITY, INTERPRETATION MAY BE ADVERSELY AFFECTED SINUS TACHYCARDIA NONSPECIFIC ST AND T WAVE ABNORMALITY ABNORMAL ECG WHEN COMPARED WITH ECG OF 25-MAY-2018 23:09, ST NOW DEPRESSED IN LATERAL LEADS T WAVE INVERSION LESS EVIDENT IN ANTERIOR LEADS NONSPECIFIC T WAVE ABNORMALITY NOW EVIDENT IN LATERAL LEADS Confirmed by Maggi Roberts ([id number]) on 02/26/2019 2:51:49 PM Referred By: Confirmed By:Maggi Roberts
[2019-02-26] MEDS: SODIUM CHLORIDE 1,000 ML IV SCH (14:53)
[2019-02-26] MEDS ORDERED: PHENYLEPHRINE HCL 10 MG/1 ML SINGLE DOSE VIAL ONE (14:54)
--- NOTE | 2019-02-26 14:59 | HP ---
Admitting History and Physical - Primary Care Physician PCP: Dr. Hunag - Admission Chief Complaint: shortness of breath History of Present Illness: 68 year old female with a significant PMH of COPD on 2 L Oxygen at home, h/o of intubation for COPD, HTN, left sided lung Ca, s/p surgery 2013, right breast Ca , s/p radiation in 2009 BIBA for SOB and cough which has progressively worsened over the last 24hours since 4:30pm on 02/25. As per patient's , she remained restless overnight and this morning was unable to perform ADLS. She used her albuterol and took an oral prednisone without significant improvement, therefore EMS was activated. On arrival, she was noted to be hypoxic to 88% on 2L and tachy to the 130s, was tripoding, pt was given dexamethasone, combivent. On arrival to ED: pt was tachypneic at 30, tachy to 140bpm. She could only mutter one word at a time and her mental status progressively declined and she was no longer able to protect her airway. She was intubated and sedated with versed, but experienced profound hypotension (SBP 40s) despite 4L IVF. Phenyl IVP administered for BP support, RIJ central line placed and levophed started. cxr with possible L base infiltrate, ETT and ng tube in place vanc and zosyn started Pt admitted to ICU for intensive management. History Source: Significant Other, Medical Record Limitations to Obtaining History: Clinical Condition, Intubated - Past Medical History BOTTLE HOP: Yes: Other (aneurysm s/p clipping) Cardiovascular: Yes: HTN Pulmonary: Yes: COPD, Pneumonia, Previously Intubated Gastrointestinal: Yes: Gastritis ...: No ...: 1 ...Para: 1 Heme/Onc: Yes: Cancer (lung and breast) - Past Surgical History Additional Past Surgical History: brain aneurysm-s/p clip 1999, gastric perforation 1981, - Advance Directives Advance Directives: Yes: Health Care Proxy (: Rios Hamm [phone] ) - Smoking History Smoking history: Former smoker (quit about 15 years ago) Have you smoked in the past 12 months: No Aproximately how many cigarettes per day: 0 If you are a former smoker, when did you quit?: 2009 - Alcohol/Substance Use Hx Alcohol Use: No History of Substance Use: reports: None - Social History Usual Living Arrangement: Yes: With Spouse Do you think of yourself as: Straight/Heterosexual ADL: Independent History of Recent Travel: No Home Medications - Allergies Allergies/Adverse Reactions: Allergies Allergy/AdvReac Type Severity Reaction Status Date / Time No Known Allergies Allergy Verified 02/26/19 12:12 - Home Medications Home Medications: Ambulatory Orders Amlodipine Besylate [Norvasc -] 5 mg PO DAILY 05/19/18 Acetylcysteine Po/INH 20% [Mucomyst 20 Oral / INH Use Only*] 400 mg NEB RQID vial 06/03/18 Albuterol 0.083% Nebulizer Bhavana [Ventolin 0.083% Nebulizer Soln -] 1 amp NEB Q4H PRN amp 06/03/18 Albuterol 0.083% Nebulizer Bhavana [Ventolin 0.083% Nebulizer Soln -] 1 amp NEB RQID amp 06/03/18 Budesonide/Formeterol Fumarate [SYMBICORT 160/4.5mcg -] 2 puff IH BID inhaler 06/03/18 Methylprednisolone Na Succ [Solu-Medrol -] 40 mg IVPUSH DAILY vial 06/03/18 Pantoprazole Sodium [Protonix -] 40 mg PO DAILY tablet.ec 06/03/18 Valacyclovir HCl [Valtrex -] 500 mg PO BID tablet 06/03/18 traZODone HCL [Desyrel -] 50 mg PO HS tablet 06/03/18 Family Medical History Family History: Unable to Obtain (pt intubated and sedated at the time of exam) Review of Systems Unable to obtain ROS, reason: pt intubated Physical Examination Vital Signs: Vital Signs Temperature Pulse Rate 114 H 02/26/19 14:05 Respiratory Rate 20 02/26/19 14:05 Blood Pressure 85/74 L 02/26/19 14:05 O2 Sat by Pulse Oximetry (%) 97 02/26/19 14:05 Constitutional: Yes: Thin Eyes: Yes: Conjunctiva Clear, PERRL HENT: Yes: Atraumatic, Normocephalic Neck: Yes: Supple Cardiovascular: Yes: Regular Rate and Rhythm Respiratory: Yes: Diminished, Intubated Gastrointestinal: Yes: Soft, Hypoactive Bowel Sounds ...Rectal Exam: Yes: Deferred Renal/: Yes: Parsons Present Extremities: Yes: WNL Edema: No Peripheral Pulses WNL: Yes Peripheral Pulses: Left Radial: 1+, Right Radial: 1+, Left Doralis Pedis: 1+, Right Dorsalis Pedis: 1+ Integumentary: Yes: WNL Neurological: Yes: Other (sedated) Labs: CBC, BMP 02/26/19 12:00 02/26/19 12:00 Imaging - Results Chest X-ray: Report Reviewed (CXR 02/26/2019 Impression ET tube and NG tube in place. Major improvement in aeration right base. Slight improvement left base. Reported By: Wilber Mike MD 02/26/19 [id number]) Problem List - Problems (1) Prophylactic measure Assessment/Plan: sc HEPARIN bid bowel regimen with senna/colace turn and reposition q2hrs Code(s): Z29.9 - ENCOUNTER FOR PROPHYLACTIC MEASURES, UNSPECIFIED (2) HTN (hypertension) Assessment/Plan: hold norvasc start levophed due to profound hypotension, despite 4L fluids Code(s): I10 - ESSENTIAL (PRIMARY) HYPERTENSION (3) Gastritis Assessment/Plan: PPI Code(s): K29.70 - GASTRITIS, UNSPECIFIED, WITHOUT BLEEDING (4) Acute hypoxemic respiratory failure Assessment/Plan: vent for resp failure sedation and fentanyl/versed nebs qid ABG qshift - consider a-line due to need for blood draws and need for hemodynamic monitoring Code(s): J96.01 - ACUTE RESPIRATORY FAILURE WITH HYPOXIA (5) COPD (chronic obstructive pulmonary disease) Assessment/Plan: start IV steroids for COPD exacerbation Ceftriaxone + azith Nebs wean vent as tolerated daily CXR Code(s): J44.9 - CHRONIC OBSTRUCTIVE PULMONARY DISEASE, UNSPECIFIED Qualifiers: COPD type: unspecified COPD Qualified Code(s): J44.9 - Chronic obstructive pulmonary disease, unspecified Assessment/Plan FEN: nutrition consult. NGT in place dispo: pt requires inpt care Code status: Full Visit type - Emergency Visit Emergency Visit: Yes Care time: The patient presented to the Emergency Department on the above date and was hospitalized for further evaluation of their emergent condition. - New Patient This patient is new to me today: Yes Date on this admission: 02/26/19 - Critical Care Critical Care patient: Yes Total Critical Care Time (in minutes): 75 Critical Care Statement: The care of this patient involved high complexity decision making to prevent further life threatening deterioration of the patient 's condition and/or to evaluate & treat vital organ system(s) failure or risk of failure.
[2019-02-26] MEDS ORDERED: VANCOMYCIN 1 GRAM (PRE-DOCKED) 1,000 MG/250 ML BAG IVPB ONE ×2 (15:00→15:04)
[2019-02-26] MEDS ORDERED: AZITHROMYCIN IVPB 500 MG/250 ML BAG IVPB SCH (15:00)
[2019-02-26 15:04] LABS: ARTERIAL BLD GAS O2 SATURATION 87.8 % (95-98); ARTERIAL BLOOD GAS BASE EXCESS -6.6 meq/l (-2-2); ARTERIAL BLOOD GAS PCO2 48.3 mmHg (35-45); ARTERIAL BLOOD GAS pH 7.24 (7.35-7.45)
[2019-02-26 15:12] LABS: N-TERMINAL BNP 713.6 pg/ml (5-125)
[2019-02-26] MEDS ORDERED: NOREPINEPHRINE BITARTRATE 4,000 MCG in DEXTROSE 5%-WATER - 496 ML IV SCH (15:15)
[2019-02-26 15:30] LABS: ANISOCYTOSIS 0; MACROCYTOSIS 0; PLATELET ESTIMATE NORMAL
[2019-02-26] MEDS: FENTANYL INJECTION 500 MCG in DEXTROSE 5%-WATER - 90 ML IVPB SCH (15:35)
[2019-02-26 16:35] LABS: URINE RBC 15-20 /hpf (0-4)
[2019-02-26] MEDS ORDERED: CEFTRIAXONE 1 GM/50 ML BAG ONE (17:34)
[2019-02-26] MEDS ORDERED: methylPREDNISolone NA SUCC 40 MG/1 ML VIAL ONE ×2 (17:34→21:21)
[2019-02-26] MEDS: methylPREDNISolone NA SUCC 40 MG/1 ML VIAL IVPB SCH ×2 (17:45→21:57)
[2019-02-26] MEDS: ALBUTEROL SO4 2.5/IPRATROPIUM 0.5 INH SOL 3 ML VIAL.NEB. NEB SCH ×2 (18:00→21:18)
[2019-02-26] MEDS ORDERED: ALBUTEROL SO4 0.083% IH SOL 2.5 MG/3 ML VIAL.NEB. NEB ONE ×2 (18:24→21:11)
[2019-02-26] MEDS: ALBUTEROL SO4 0.083% IH SOL 2.5 MG/3 ML VIAL.NEB. NEB SCH ×2 (18:25→21:18)
[2019-02-26] MEDS: CEFTRIAXONE 1 GM in DEXTROSE 5%-WATER - 50 ML IVPB SCH (19:45)
[2019-02-26] MEDS ORDERED: AZITHROMYCIN IVPB 500 MG/250 ML BAG IVPB ONE (19:46)
[2019-02-26 20:38] LABS: ARTERIAL BLD GAS O2 SATURATION 97.9 % (95-98); ARTERIAL BLOOD GAS PCO2 37.6 mmHg (35-45); ARTERIAL BLOOD GAS PO2 106 mmHg (80-100); ARTERIAL BLOOD GAS pH 7.32 (7.35-7.45)
[2019-02-26] MEDS: SENNOSIDES 8.8 MG/5 ML BULK BOTTLE PO SCH (21:18)
[2019-02-26] MEDS: DOCUSATE NA 100 MG/10 ML UNIT-DOSE CUPS PO SCH (21:18)
[2019-02-26] MEDS ORDERED: HEPARIN NA (PORCINE) 5,000 UNITS/ML 1ML VIAL ONE (21:21)
[2019-02-26] MEDS: HEPARIN NA (PORCINE) 5,000 UNITS/ML 1ML VIAL SQ SCH (21:33)
[2019-02-26] MEDS ORDERED: ACETAMINOPHEN 1000 MG/100 ML VIAL (NON FORMULARY) IVPB PRN (23:57)
[2019-02-26] MEDS ORDERED: POTASSIUM CHLORIDE 20 MEQ PREMIX IVPB 100 ML IVPB ONE (23:58)
[2019-02-27] MEDS ORDERED: MIDAZOLAM IN 0.9 % SOD.CHLORID 1 MG/1 ML PLAST..BAG ONE (00:01)
[2019-02-27] MEDS: MUPIROCIN 2% TOPICAL OINTMENT FOR DECOLONIZATION NS SCH ×3 (01:24→21:44)
[2019-02-27] MEDS ORDERED: SODIUM CHLORIDE 1,000 ML IV STA ×2 (01:24→10:23)
[2019-02-27] MEDS: CHLORHEXIDINE GLUCONATE 4% CLEANSER FOR DECOLONIZATION TP SCH ×2 (01:25→21:44)
[2019-02-27] MEDS: NOREPINEPHRINE BITARTRATE 8,000 MCG in DEXTROSE 5%-WATER - 492 ML IV SCH ×2 (01:25→10:10)
[2019-02-27] MEDS: KCL 20 MEQ PREMIX BAG 100 ML IVPB SCH ×2 (01:26→02:30)
[2019-02-27] MEDS: ALBUTEROL SO4 0.083% IH SOL 2.5 MG/3 ML VIAL.NEB. NEB SCH ×2 (01:40→04:37)
[2019-02-27] MEDS: methylPREDNISolone NA SUCC 40 MG/1 ML VIAL IVPB SCH ×3 (05:49→22:03)
[2019-02-27] MEDS ORDERED: fentaNYL CITRATE 250 MCG/5 ML VIAL ONE ×3 (06:05→17:47)
[2019-02-27 07:05] LABS: ARTERIAL BLD GAS O2 SATURATION 92.9 % (95-98); ARTERIAL BLOOD GAS BASE EXCESS -6.5 meq/l (-2-2); ARTERIAL BLOOD GAS PCO2 51.5 mmHg (35-45); ARTERIAL BLOOD GAS PO2 71.9 mmHg (80-100); ARTERIAL BLOOD GAS pH 7.23 (7.35-7.45)
[2019-02-27 07:10] LABS: ALLENS TEST POSITIVE
[2019-02-27] MEDS ORDERED: cefTRIAXone SODIUM 1 GM VIAL ONE (07:51)
[2019-02-27] MEDS ORDERED: DEXTROSE 5%-WATER - 50 ML IVPB ONE (07:51)
[2019-02-27 07:55] LABS: BASO % 0.2 % (0-2.0); HEMOGLOBIN 10.5 GM/dL (10.7-15.3); LYMPH % 2.8 % (8-40); MCH 26.4 pg (25.7-33.7); MCHC 31.7 g/dl (32.0-36.0); MEAN CELL VOLUME 83.4 fl (80-96); MEAN PLT VOLUME 9.9 fl (7.5-11.1); MONO % 7.5 % (3.8-10.2); NEUT % 89.5 % (42.8-82.8); PLATELET COUNT 171 K/MM3 (134-434); RBC 3.96 M/mm3 (3.60-5.2); RDW 16.5 % (11.6-15.6); WHITE BLOOD COUNT 18.2 K/mm3 (4.0-10.0)
[2019-02-27] MEDS: ALBUTEROL SO4 2.5/IPRATROPIUM 0.5 INH SOL 3 ML VIAL.NEB. NEB SCH ×4 (08:10→20:55)
[2019-02-27 08:13] LABS: INR 1.9 (0.83-1.09); PROTHROMBIN TIME (PATIENT) 22.6 SEC (9.7-13.0)
[2019-02-27 08:15] LABS: ACTIVATED PTT 37.3 SECONDS (25.2-36.5)
[2019-02-27 08:28] LABS: ALBUMIN 2.6 g/dl (3.4-5.0); BILIRUBIN,TOTAL 0.4 mg/dL (0.2-1); CALCIUM 7.5 mg/dL (8.5-10.1); CREATININE 1.1 mg/dL (0.55-1.3); MAGNESIUM 1.6 mg/dL (1.8-2.4); PHOSPHOROUS 2.5 mg/dL (2.5-4.9); POTASSIUM 5.3 mmol/L (3.5-5.1); TOT PROT 5.4 g/dl (6.4-8.2)
--- NOTE | 2019-02-27 08:54 | PN ---
Physical Exam: SUBJECTIVE: Patient seen and examined; all diagnostics reviewed. Discussed with pccm team. Remains critically ill in the ICU for acute on chronic mixed respiratory failure likely secondary to COPD exacerbation. She has underlying pulmonary pathology from a multitude of reasons with no recent PFTs on file. She is known to be s/p radiation, is on 2L O2 at home chronically, and does have an elevated BNP. While she has no features of cassia CHF, she has risks for P-HTN and elevated RVSP causes, etc. and will followup on echo. She remains with PCCM management in ICU. Couldn't obtain ROS due to clinical picture-was intubated. OBJECTIVE: Vital Signs Period Temp Pulse Resp BP Sys/Sawyer Pulse Ox Last 24 Hr 97.6 F-101.3 F 80-144 16-30 47-177/36-111 90-100 VS, labs, and diagnostics reviewed. All imagign and consults reviewed. Intubated and sedated with RASS 3, WD to pain, ? to verbal but was without holiday NC AT EOMI PERRLA RRR s1/2 NT ND +BS; NGT inserted CN2-12 wnl, +2 DTRs UE, normal tone Skin without rashes or breakdown Trachea midline, no LN Cannot assess psych Lungs with vent associate breath sounds but no focal consolidation; some wheezes Laboratory Results - last 24 hr 02/26/19 02/26/19 02/26/19 12:00 12:00 12:00 WBC 21.3 H RBC 4.67 Hgb 12.2 Hct 39.0 D MCV 83.6 MCH 26.2 MCHC 31.3 L RDW 16.4 H Plt Count 221 MPV 11.1 D Absolute Neuts (auto) 18.7 H Neutrophils % 87.7 H Neutrophils % (Manual) 61.0 Band Neutrophils % 29.0 Lymphocytes % 3.5 L D Lymphocytes % (Manual) 3.0 L D Monocytes % 8.8 Monocytes % (Manual) 4 Eosinophils % 0.0 D Eosinophils % (Manual) 0.0 Basophils % 0.0 Basophils % (Manual) 0.0 Myelocytes % (Man) 1 D Promyelocytes % (Man) 0 Blast Cells % (Manual) 0 Nucleated RBC % 0 Metamyelocytes 0 Hypochromia 0 Platelet Estimate Normal Platelet Comment Present Polychromasia 0 Poikilocytosis 0 Anisocytosis 0 Microcytosis 0 Macrocytosis 0 PT with INR 15.50 H INR 1.31 H PTT (Actin FS) 40.4 H Anticoagulation Therapy Puncture Site ABG pH ABG pCO2 at Pt Temp ABG pO2 at Pt Temp ABG HCO3 ABG O2 Sat (Measured) ABG O2 Content ABG Base Excess Bj Test VBG pH POC VBG pCO2 POC VBG pO2 VBG HCO3 VBG O2 Sat (Brittney) VBG Base Excess O2 Delivery Device Oxygen Flow Rate Vent Mode Vent Rate Mechanical Rate PEEP Pressure Support Vent Sodium Potassium Chloride Carbon Dioxide Anion Gap BUN Creatinine Est GFR (CKD-EPI)AfAm Est GFR (CKD-EPI)NonAf Random Glucose Hemoglobin A1c % Lactic Acid Calcium Phosphorus Magnesium Total Bilirubin AST ALT Alkaline Phosphatase Creatine Kinase Troponin I < 0.02 B-Natriuretic Peptide Total Protein Albumin Urine Color Urine Appearance Urine pH Ur Specific [place] Urine Protein Urine Glucose (UA) Urine Ketones Urine Blood Urine Nitrite Urine Bilirubin Urine Urobilinogen Ur Leukocyte Esterase Urine WBC (Auto) Urine RBC (Auto) Urine Casts (Auto) U Pathogenic Cast Auto U Epithel Cells (Auto) U Sm Round Cell (Auto) Urine Bacteria (Auto) Influenza A (Rapid) Influenza B (Rapid) 02/26/19 02/26/19 02/26/19 12:00 12:00 12:40 WBC RBC Hgb Hct MCV MCH MCHC RDW Plt Count MPV Absolute Neuts (auto) Neutrophils % Neutrophils % (Manual) Band Neutrophils % Lymphocytes % Lymphocytes % (Manual) Monocytes % Monocytes % (Manual) Eosinophils % Eosinophils % (Manual) Basophils % Basophils % (Manual) Myelocytes % (Man) Promyelocytes % (Man) Blast Cells % (Manual) Nucleated RBC % Metamyelocytes Hypochromia Platelet Estimate Platelet Comment Polychromasia Poikilocytosis Anisocytosis Microcytosis Macrocytosis PT with INR INR PTT (Actin FS) Anticoagulation Therapy Puncture Site ABG pH ABG pCO2 at Pt Temp ABG pO2 at Pt Temp ABG HCO3 ABG O2 Sat (Measured) ABG O2 Content ABG Base Excess Bj Test VBG pH 7.13 L* POC VBG pCO2 95.6 H* POC VBG pO2 56.9 H VBG HCO3 30.3 H VBG O2 Sat (Brittney) 78.2 VBG Base Excess -1.5 O2 Delivery Device Oxygen Flow Rate Vent Mode Vent Rate Mechanical Rate PEEP Pressure Support Vent Sodium 137 Potassium 3.6 Chloride 99 Carbon Dioxide 29 Anion Gap 9 BUN 17.9 Creatinine 0.8 Est GFR (CKD-EPI)AfAm 88.42 Est GFR (CKD-EPI)NonAf 76.29 Random Glucose 171 H Hemoglobin A1c % Lactic Acid 2.3 H* Calcium 9.0 Phosphorus Magnesium Total Bilirubin 0.7 AST 16 ALT 14 Alkaline Phosphatase 59 Creatine Kinase 73 Troponin I < 0.02 B-Natriuretic Peptide 713.6 H Total Protein 7.5 Albumin 3.7 Urine Color Urine Appearance Urine pH Ur Specific [place] Urine Protein Urine Glucose (UA) Urine Ketones Urine Blood Urine Nitrite Urine Bilirubin Urine Urobilinogen Ur Leukocyte Esterase Urine WBC (Auto) Urine RBC (Auto) Urine Casts (Auto) U Pathogenic Cast Auto U Epithel Cells (Auto) U Sm Round Cell (Auto) Urine Bacteria (Auto) Influenza A (Rapid) Influenza B (Rapid) 02/26/19 02/26/19 02/26/19 13:40 14:49 18:20 WBC RBC Hgb Hct MCV MCH MCHC RDW Plt Count MPV Absolute Neuts (auto) Neutrophils % Neutrophils % (Manual) Band Neutrophils % Lymphocytes % Lymphocytes % (Manual) Monocytes % Monocytes % (Manual) Eosinophils % Eosinophils % (Manual) Basophils % Basophils % (Manual) Myelocytes % (Man) Promyelocytes % (Man) Blast Cells % (Manual) Nucleated RBC % Metamyelocytes Hypochromia Platelet Estimate Platelet Comment Polychromasia Poikilocytosis Anisocytosis Microcytosis Macrocytosis PT with INR INR PTT (Actin FS) Anticoagulation Therapy No Result Required. Puncture Site Right radial ABG pH 7.24 L ABG pCO2 at Pt Temp 48.3 H ABG pO2 at Pt Temp 60.0 L ABG HCO3 20.0 L ABG O2 Sat (Measured) 87.8 L ABG O2 Content 11.0 ABG Base Excess -6.6 L Bj Test No Result Required. VBG pH POC VBG pCO2 POC VBG pO2 VBG HCO3 VBG O2 Sat (Brittney) VBG Base Excess O2 Delivery Device No Result Required. Oxygen Flow Rate 40 Vent Mode No Result Required. Vent Rate 20 Mechanical Rate Ac PEEP 5.0 Pressure Support Vent No Result Required. Sodium Potassium Chloride Carbon Dioxide Anion Gap BUN Creatinine Est GFR (CKD-EPI)AfAm Est GFR (CKD-EPI)NonAf Random Glucose Hemoglobin A1c % Lactic Acid 2.4 H* Calcium Phosphorus Magnesium Total Bilirubin AST ALT Alkaline Phosphatase Creatine Kinase Troponin I B-Natriuretic Peptide Total Protein Albumin Urine Color Yellow Urine Appearance Clear Urine pH 5.5 Ur Specific [place] 1.020 Urine Protein 2+ H Urine Glucose (UA) Negative Urine Ketones Trace H Urine Blood 2+ H Urine Nitrite Negative Urine Bilirubin Negative Urine Urobilinogen 1.0 Ur Leukocyte Esterase Negative Urine WBC (Auto) 1 Urine RBC (Auto) 15-20 Urine Casts (Auto) 24 U Pathogenic Cast Auto Positive U Epithel Cells (Auto) 5.1 U Sm Round Cell (Auto) Negative Urine Bacteria (Auto) 1.0 Influenza A (Rapid) Influenza B (Rapid) 02/26/19 02/27/19 02/27/19 20:30 00:20 01:57 WBC RBC Hgb Hct MCV MCH MCHC RDW Plt Count MPV Absolute Neuts (auto) Neutrophils % Neutrophils % (Manual) Band Neutrophils % Lymphocytes % Lymphocytes % (Manual) Monocytes % Monocytes % (Manual) Eosinophils % Eosinophils % (Manual) Basophils % Basophils % (Manual) Myelocytes % (Man) Promyelocytes % (Man) Blast Cells % (Manual) Nucleated RBC % Metamyelocytes Hypochromia Platelet Estimate Platelet Comment Polychromasia Poikilocytosis Anisocytosis Microcytosis Macrocytosis PT with INR INR PTT (Actin FS) Anticoagulation Therapy No Result Required. Puncture Site No Result Required. ABG pH 7.32 L ABG pCO2 at Pt Temp 37.6 ABG pO2 at Pt Temp 106 H ABG HCO3 19.0 L ABG O2 Sat (Measured) 97.9 ABG O2 Content 14.6 ABG Base Excess -6.0 L Bj Test No Result Required. VBG pH POC VBG pCO2 POC VBG pO2 VBG HCO3 VBG O2 Sat (Brittney) VBG Base Excess O2 Delivery Device No Result Required. Oxygen Flow Rate No Result Required. Vent Mode No Result Required. Vent Rate No Result Required. Mechanical Rate No Result Required. PEEP Pressure Support Vent No Result Required. Sodium Potassium Chloride Carbon Dioxide Anion Gap BUN Creatinine Est GFR (CKD-EPI)AfAm Est GFR (CKD-EPI)NonAf Random Glucose Hemoglobin A1c % Lactic Acid 3.1 H* Calcium Phosphorus Magnesium Total Bilirubin AST ALT Alkaline Phosphatase Creatine Kinase Troponin I B-Natriuretic Peptide Total Protein Albumin Urine Color Urine Appearance Urine pH Ur Specific [place] Urine Protein Urine Glucose (UA) Urine Ketones Urine Blood Urine Nitrite Urine Bilirubin Urine Urobilinogen Ur Leukocyte Esterase Urine WBC (Auto) Urine RBC (Auto) Urine Casts (Auto) U Pathogenic Cast Auto U Epithel Cells (Auto) U Sm Round Cell (Auto) Urine Bacteria (Auto) Influenza A (Rapid) Negative Influenza B (Rapid) Negative 02/27/19 02/27/19 02/27/19 05:45 05:45 05:45 WBC 18.2 H RBC 3.96 Hgb 10.5 L Hct 33.0 D MCV 83.4 MCH 26.4 MCHC 31.7 L RDW 16.5 H Plt Count 171 D MPV 9.9 D Absolute Neuts (auto) 16.3 H Neutrophils % 89.5 H Neutrophils % (Manual) Band Neutrophils % Lymphocytes % 2.8 L Lymphocytes % (Manual) Monocytes % 7.5 Monocytes % (Manual) Eosinophils % 0.0 Eosinophils % (Manual) Basophils % 0.2 D Basophils % (Manual) Myelocytes % (Man) Promyelocytes % (Man) Blast Cells % (Manual) Nucleated RBC % 0 Metamyelocytes Hypochromia Platelet Estimate Platelet Comment Polychromasia Poikilocytosis Anisocytosis Microcytosis Macrocytosis PT with INR 22.60 H INR 1.90 H PTT (Actin FS) 37.3 H Anticoagulation Therapy Puncture Site ABG pH ABG pCO2 at Pt Temp ABG pO2 at Pt Temp ABG HCO3 ABG O2 Sat (Measured) ABG O2 Content ABG Base Excess Bj Test VBG pH POC VBG pCO2 POC VBG pO2 VBG HCO3 VBG O2 Sat (Brittney) VBG Base Excess O2 Delivery Device Oxygen Flow Rate Vent Mode Vent Rate Mechanical Rate PEEP Pressure Support Vent Sodium Potassium Chloride Carbon Dioxide Anion Gap BUN Creatinine Est GFR (CKD-EPI)AfAm Est GFR (CKD-EPI)NonAf Random Glucose Hemoglobin A1c % 5.3 Lactic Acid Calcium Phosphorus Magnesium Total Bilirubin AST ALT Alkaline Phosphatase Creatine Kinase Troponin I B-Natriuretic Peptide Total Protein Albumin Urine Color Urine Appearance Urine pH Ur Specific [place] Urine Protein Urine Glucose (UA) Urine Ketones Urine Blood Urine Nitrite Urine Bilirubin Urine Urobilinogen Ur Leukocyte Esterase Urine WBC (Auto) Urine RBC (Auto) Urine Casts (Auto) U Pathogenic Cast Auto U Epithel Cells (Auto) U Sm Round Cell (Auto) Urine Bacteria (Auto) Influenza A (Rapid) Influenza B (Rapid) 02/27/19 02/27/19 02/27/19 05:45 06:00 06:55 WBC RBC Hgb Hct MCV MCH MCHC RDW Plt Count MPV Absolute Neuts (auto) Neutrophils % Neutrophils % (Manual) Band Neutrophils % Lymphocytes % Lymphocytes % (Manual) Monocytes % Monocytes % (Manual) Eosinophils % Eosinophils % (Manual) Basophils % Basophils % (Manual) Myelocytes % (Man) Promyelocytes % (Man) Blast Cells % (Manual) Nucleated RBC % Metamyelocytes Hypochromia Platelet Estimate Platelet Comment Polychromasia Poikilocytosis Anisocytosis Microcytosis Macrocytosis PT with INR INR PTT (Actin FS) Anticoagulation Therapy No Result Required. Puncture Site Left brachial ABG pH 7.23 L ABG pCO2 at Pt Temp 51.5 H ABG pO2 at Pt Temp 71.9 L ABG HCO3 20.7 L ABG O2 Sat (Measured) 92.9 L ABG O2 Content 14.6 ABG Base Excess -6.5 L Bj Test Positive VBG pH POC VBG pCO2 POC VBG pO2 VBG HCO3 VBG O2 Sat (Brittney) VBG Base Excess O2 Delivery Device Vent Oxygen Flow Rate 55% Vent Mode A/c Vent Rate 0 Mechanical Rate Yes PEEP 5.0 Pressure Support Vent 350 Sodium 134 L Potassium 5.3 H Chloride 104 Carbon Dioxide 23 Anion Gap 7 L BUN 21.0 H Creatinine 1.1 Est GFR (CKD-EPI)AfAm 60.16 Est GFR (CKD-EPI)NonAf 51.91 Random Glucose 234 H Hemoglobin A1c % Lactic Acid 2.4 H* Calcium 7.5 L Phosphorus 2.5 Magnesium 1.6 L Total Bilirubin 0.4 AST 32 ALT 25 Alkaline Phosphatase 41 L Creatine Kinase Troponin I B-Natriuretic Peptide Total Protein 5.4 L Albumin 2.6 L Urine Color Urine Appearance Urine pH Ur Specific [place] Urine Protein Urine Glucose (UA) Urine Ketones Urine Blood Urine Nitrite Urine Bilirubin Urine Urobilinogen Ur Leukocyte Esterase Urine WBC (Auto) Urine RBC (Auto) Urine Casts (Auto) U Pathogenic Cast Auto U Epithel Cells (Auto) U Sm Round Cell (Auto) Urine Bacteria (Auto) Influenza A (Rapid) Influenza B (Rapid) Active Medications Generic Name Dose Route Start Last Admin Trade Name Freq PRN Reason Stop Dose Admin Acetaminophen 600 mg 02/26/19 23:57 02/27/19 00:20 Ofirmev Injection - IVPB 600 mg Q6H PRN Administration FEVER Albuterol Sulfate 1 amp 02/26/19 16:00 02/27/19 04:37 Ventolin 0.083% Nebulizer Soln - NEB 1 amp RQ4H BRIE Administration Albuterol/Ipratropium 1 amp 02/26/19 16:00 02/26/19 21:18 Duoneb - NEB 1 amp RQID BRIE Administration Chlorhexidine Gluconate 1 applic 02/26/19 22:00 02/27/19 01:25 Hibiclens For Decolonization - TP 1 applic HS BRIE Administration Docusate Sodium 100 mg 02/26/19 22:00 02/26/19 21:18 Colace Liquid - PO Not Given BID BRIE Heparin Sodium (Porcine) 5,000 unit 02/26/19 22:00 02/26/19 21:33 Heparin - SQ 5,000 unit BID BRIE Administration Midazolam HCl 100 mg/ Sodium 100 mls @ 1 mls/hr 02/26/19 13:00 02/27/19 01:54 Chloride IVPB 2 mg/hr TITR BRIE 2 mls/hr Titration Protocol 1 MG/HR Sodium Chloride 1,000 mls @ 100 mls/hr 02/26/19 14:30 02/26/19 14:53 Normal Saline - IV 100 mls/hr ASDIR BRIE Administration Ceftriaxone Sodium 1 gm/ 50 mls @ 200 mls/hr 02/26/19 15:00 02/26/19 19:45 Dextrose IVPB 200 mls/hr DAILY BRIE Administration Protocol Azithromycin 500 mg in 250 mls @ 250 mls/hr 02/26/19 15:00 02/26/19 20:25 Zithromax 500mg Ivpb (Pre-Docked) IVPB 250 mls/hr DAILY BRIE Administration Fentanyl 500 mcg/ Dextrose 100 mls @ 10 mls/hr 02/26/19 15:15 02/27/19 05:53 IVPB 75 mcg/hr TITR BRIE 15 mls/hr Titration 50 MCG/HR Norepinephrine Bitartrate 8, 500 mls @ 18.75 mls/hr 02/26/19 23:45 02/27/19 03:47 000 mcg/ Dextrose IV 10 mcg/min TITR BRIE 37.5 mls/hr Titration Protocol 5 MCG/MIN Methylprednisolone Sodium Succinate 60 mg 02/26/19 14:45 02/27/19 05:49 Solu-Medrol - IVPB 60 mg Q8H BRIE Administration Mupirocin 1 applic 02/26/19 22:00 02/27/19 01:24 Bactroban Ointment (For Decolonization) - NS 03/03/19 21:59 1 applic BID BRIE Administration Pantoprazole Sodium 40 mg 02/27/19 10:00 Protonix Iv IVPUSH DAILY BRIE Senna 8.8 mg 02/26/19 22:00 02/26/19 21:18 Senna Oral Solution - PO Not Given HS BRIE CXR repeat with improved R-lung base aeration CT chest and head pending Echo pending ASSESSMENT/PLAN: Seen and examined; remains critically ill in the ICU intubated and sedated on vent support with PCCM managing; appreciate expert management. Reviewed all imaging and diagnostics. We will continue steroids, followup echo, and trend her INR given the coagulopathy noted. She has slight hyperkalemia so will repeat PM value and hypoMg which we will replete. Low albumin noted-consult nutrition when out of ICU and consider prealbumin. DCd the azithro and changed to doxy as QTc 530s; will repeat as to exclude rate-related phenomenon. Followup imaging. Overall her problems include: -Acute on chronic mixed respiratory failure requiring mechanical ventillation -Elevated BNP -Hx Lung cancer -Hx COPD on home O2, PFTs unknown -Septic shock vs. hypotension 2/2 induction in the setting of respiratory failure-on broad spectrum and w/o fever, pending ID consult -Hypoalbuminemia -HypooMg -HyperK -Hx Gastric CA Overall she remains critically ill and we will continue to manage in ICU. For time being will defer majority of care of PCCM consultants regarding the severe acute issues necessating her placement. Full Code pending family meeting Visit type - Emergency Visit Emergency Visit: Yes ED Registration Date: 02/26/19 Care time: The patient presented to the Emergency Department on the above date and was hospitalized for further evaluation of their emergent condition. - New Patient This patient is new to me today: Yes Date on this admission: 02/27/19 - Critical Care Critical Care patient: Yes Total Critical Care Time (in minutes): 70 Critical Care Statement: The care of this patient involved high complexity decision making to prevent further life threatening deterioration of the patient 's condition and/or to evaluate & treat vital organ system(s) failure or risk of failure.
[2019-02-27] MEDS ORDERED: MAGNESIUM SULFATE IN WATER 2 GM/50 ML IVPB IVPB ONE (09:00)
[2019-02-27] MEDS: CEFTRIAXONE 1 GM in DEXTROSE 5%-WATER - 50 ML IVPB SCH (09:18)
[2019-02-27] MEDS: DOCUSATE NA 100 MG/10 ML UNIT-DOSE CUPS PO SCH ×2 (09:21→21:44)
[2019-02-27] MEDS: HEPARIN NA (PORCINE) 5,000 UNITS/ML 1ML VIAL SQ SCH ×2 (09:22→21:44)
[2019-02-27] MEDS: PANTOPRAZOLE SODIUM 40 MG VIAL IVPUSH SCH (09:34)
--- NOTE | 2019-02-27 09:55 | PN ---
Teaching Attending Note Name of Resident: Jack Garcia ATTENDING PHYSICIAN STATEMENT I saw and evaluated the patient. I reviewed the resident's note and discussed the case with the resident. I agree with the resident's findings and plan as documented. SUBJECTIVE: Patient seen and examined in the ICU. Intubated and sedated on propofol. AC Mode of vent, 65% FiO2. NE @ 10 mcq for hemodynamic support. Intake & Output 02/24/19 02/25/19 02/26/19 02/27/19 23:59 23:59 23:59 23:59 Intake Total 2619 3290 Output Total 350 800 Balance 2269 2490 Weight 140 lb 115 lb 1.301 oz Last Vital Signs Temp Pulse Resp BP Pulse Ox 101.3 F H 66 16 137/85 96 02/27/19 01:13 02/27/19 09:26 02/27/19 09:26 02/27/19 09:26 02/27/19 07:22 Active Medications Acetaminophen (Ofirmev Injection -) 600 mg IVPB Q6H PRN PRN Reason: FEVER Last Admin: 02/27/19 00:20 Dose: 600 mg Albuterol Sulfate (Ventolin 0.083% Nebulizer Soln -) 1 amp NEB RQ4H [facility] Last Admin: 02/27/19 04:37 Dose: 1 amp Albuterol/Ipratropium (Duoneb -) 1 amp NEB RQID [facility] Last Admin: 02/26/19 21:18 Dose: 1 amp Chlorhexidine Gluconate (Hibiclens For Decolonization -) 1 applic TP HS [facility] Last Admin: 02/27/19 01:25 Dose: 1 applic Docusate Sodium (Colace Liquid -) 100 mg PO BID [facility] Last Admin: 02/27/19 09:21 Dose: 100 mg Heparin Sodium (Porcine) (Heparin -) 5,000 unit SQ BID [facility] Last Admin: 02/27/19 09:22 Dose: 5,000 unit Midazolam HCl 100 mg/ Sodium (Chloride) 100 mls @ 1 mls/hr IVPB TITR [facility]; Protocol Last Titration: 02/27/19 01:54 Dose: 2 mg/hr, 2 mls/hr Sodium Chloride (Normal Saline -) 1,000 mls @ 100 mls/hr IV ASDIR [facility] Last Admin: 02/26/19 14:53 Dose: 100 mls/hr Ceftriaxone Sodium 1 gm/ (Dextrose) 50 mls @ 200 mls/hr IVPB DAILY [facility]; Protocol Last Admin: 02/27/19 09:18 Dose: 200 mls/hr Fentanyl 500 mcg/ Dextrose 100 mls @ 10 mls/hr IVPB TITR [facility] Last Titration: 02/27/19 05:53 Dose: 75 mcg/hr, 15 mls/hr Norepinephrine Bitartrate 8, (000 mcg/ Dextrose) 500 mls @ 18.75 mls/hr IV TITR [facility]; Protocol Last Titration: 02/27/19 03:47 Dose: 10 mcg/min, 37.5 mls/hr Doxycycline Hyclate 100 mg/ (Dextrose) 100 mls @ 100 mls/hr IVPB BID [facility] Methylprednisolone Sodium Succinate (Solu-Medrol -) 60 mg IVPB Q8H [facility] Last Admin: 02/27/19 05:49 Dose: 60 mg Mupirocin (Bactroban Ointment (For Decolonization) -) 1 applic NS BID [facility] Stop: 03/03/19 21:59 Last Admin: 02/27/19 09:34 Dose: 1 applic Pantoprazole Sodium (Protonix Iv) 40 mg IVPUSH DAILY [facility] Last Admin: 02/27/19 09:34 Dose: 40 mg Senna (Senna Oral Solution -) 8.8 mg PO HS [facility] Last Admin: 02/26/19 21:18 Dose: Not Given GENERAL: intubated and sedated HEAD: NC/AT , exophthalmus EYES: left pupil dilated and fixed, right pupil pinpoint ENT: Dry mucous membranes. NECK: Supple , No JVD LUNGS: Vented, bilateral coarse breath sounds, no wheeze HEART: sinuc tachy ABDOMEN: Soft, not distended, normoactive bowel sounds, surgical scar LOWER EXTREMITIES: 2+ pulses, warm, well-perfused. . No peripheral edema. NEUROLOGICAL: sedated, unequal pupils Laboratory Results - last 24 hr 02/26/19 02/26/19 02/26/19 12:00 12:00 12:00 WBC 21.3 H RBC 4.67 Hgb 12.2 Hct 39.0 D MCV 83.6 MCH 26.2 MCHC 31.3 L RDW 16.4 H Plt Count 221 MPV 11.1 D Absolute Neuts (auto) 18.7 H Neutrophils % 87.7 H Neutrophils % (Manual) 61.0 Band Neutrophils % 29.0 Lymphocytes % 3.5 L D Lymphocytes % (Manual) 3.0 L D Monocytes % 8.8 Monocytes % (Manual) 4 Eosinophils % 0.0 D Eosinophils % (Manual) 0.0 Basophils % 0.0 Basophils % (Manual) 0.0 Myelocytes % (Man) 1 D Promyelocytes % (Man) 0 Blast Cells % (Manual) 0 Nucleated RBC % 0 Metamyelocytes 0 Hypochromia 0 Platelet Estimate Normal Platelet Comment Present Polychromasia 0 Poikilocytosis 0 Anisocytosis 0 Microcytosis 0 Macrocytosis 0 PT with INR 15.50 H INR 1.31 H PTT (Actin FS) 40.4 H Anticoagulation Therapy Puncture Site ABG pH ABG pCO2 at Pt Temp ABG pO2 at Pt Temp ABG HCO3 ABG O2 Sat (Measured) ABG O2 Content ABG Base Excess Bj Test VBG pH POC VBG pCO2 POC VBG pO2 VBG HCO3 VBG O2 Sat (Brittney) VBG Base Excess O2 Delivery Device Oxygen Flow Rate Vent Mode Vent Rate Mechanical Rate PEEP Pressure Support Vent Sodium Potassium Chloride Carbon Dioxide Anion Gap BUN Creatinine Est GFR (CKD-EPI)AfAm Est GFR (CKD-EPI)NonAf Random Glucose Hemoglobin A1c % Lactic Acid Calcium Phosphorus Magnesium Total Bilirubin AST ALT Alkaline Phosphatase Creatine Kinase Troponin I < 0.02 B-Natriuretic Peptide Total Protein Albumin Urine Color Urine Appearance Urine pH Ur Specific [place] Urine Protein Urine Glucose (UA) Urine Ketones Urine Blood Urine Nitrite Urine Bilirubin Urine Urobilinogen Ur Leukocyte Esterase Urine WBC (Auto) Urine RBC (Auto) Urine Casts (Auto) U Pathogenic Cast Auto U Epithel Cells (Auto) U Sm Round Cell (Auto) Urine Bacteria (Auto) Influenza A (Rapid) Influenza B (Rapid) 02/26/19 02/26/19 02/26/19 12:00 12:00 12:40 WBC RBC Hgb Hct MCV MCH MCHC RDW Plt Count MPV Absolute Neuts (auto) Neutrophils % Neutrophils % (Manual) Band Neutrophils % Lymphocytes % Lymphocytes % (Manual) Monocytes % Monocytes % (Manual) Eosinophils % Eosinophils % (Manual) Basophils % Basophils % (Manual) Myelocytes % (Man) Promyelocytes % (Man) Blast Cells % (Manual) Nucleated RBC % Metamyelocytes Hypochromia Platelet Estimate Platelet Comment Polychromasia Poikilocytosis Anisocytosis Microcytosis Macrocytosis PT with INR INR PTT (Actin FS) Anticoagulation Therapy Puncture Site ABG pH ABG pCO2 at Pt Temp ABG pO2 at Pt Temp ABG HCO3 ABG O2 Sat (Measured) ABG O2 Content ABG Base Excess Bj Test VBG pH 7.13 L* POC VBG pCO2 95.6 H* POC VBG pO2 56.9 H VBG HCO3 30.3 H VBG O2 Sat (Brittney) 78.2 VBG Base Excess -1.5 O2 Delivery Device Oxygen Flow Rate Vent Mode Vent Rate Mechanical Rate PEEP Pressure Support Vent Sodium 137 Potassium 3.6 Chloride 99 Carbon Dioxide 29 Anion Gap 9 BUN 17.9 Creatinine 0.8 Est GFR (CKD-EPI)AfAm 88.42 Est GFR (CKD-EPI)NonAf 76.29 Random Glucose 171 H Hemoglobin A1c % Lactic Acid 2.3 H* Calcium 9.0 Phosphorus Magnesium Total Bilirubin 0.7 AST 16 ALT 14 Alkaline Phosphatase 59 Creatine Kinase 73 Troponin I < 0.02 B-Natriuretic Peptide 713.6 H Total Protein 7.5 Albumin 3.7 Urine Color Urine Appearance Urine pH Ur Specific [place] Urine Protein Urine Glucose (UA) Urine Ketones Urine Blood Urine Nitrite Urine Bilirubin Urine Urobilinogen Ur Leukocyte Esterase Urine WBC (Auto) Urine RBC (Auto) Urine Casts (Auto) U Pathogenic Cast Auto U Epithel Cells (Auto) U Sm Round Cell (Auto) Urine Bacteria (Auto) Influenza A (Rapid) Influenza B (Rapid) 02/26/19 02/26/19 02/26/19 13:40 14:49 18:20 WBC RBC Hgb Hct MCV MCH MCHC RDW Plt Count MPV Absolute Neuts (auto) Neutrophils % Neutrophils % (Manual) Band Neutrophils % Lymphocytes % Lymphocytes % (Manual) Monocytes % Monocytes % (Manual) Eosinophils % Eosinophils % (Manual) Basophils % Basophils % (Manual) Myelocytes % (Man) Promyelocytes % (Man) Blast Cells % (Manual) Nucleated RBC % Metamyelocytes Hypochromia Platelet Estimate Platelet Comment Polychromasia Poikilocytosis Anisocytosis Microcytosis Macrocytosis PT with INR INR PTT (Actin FS) Anticoagulation Therapy No Result Required. Puncture Site Right radial ABG pH 7.24 L ABG pCO2 at Pt Temp 48.3 H ABG pO2 at Pt Temp 60.0 L ABG HCO3 20.0 L ABG O2 Sat (Measured) 87.8 L ABG O2 Content 11.0 ABG Base Excess -6.6 L Bj Test No Result Required. VBG pH POC VBG pCO2 POC VBG pO2 VBG HCO3 VBG O2 Sat (Brittney) VBG Base Excess O2 Delivery Device No Result Required. Oxygen Flow Rate 40 Vent Mode No Result Required. Vent Rate 20 Mechanical Rate Ac PEEP 5.0 Pressure Support Vent No Result Required. Sodium Potassium Chloride Carbon Dioxide Anion Gap BUN Creatinine Est GFR (CKD-EPI)AfAm Est GFR (CKD-EPI)NonAf Random Glucose Hemoglobin A1c % Lactic Acid 2.4 H* Calcium Phosphorus Magnesium Total Bilirubin AST ALT Alkaline Phosphatase Creatine Kinase Troponin I B-Natriuretic Peptide Total Protein Albumin Urine Color Yellow Urine Appearance Clear Urine pH 5.5 Ur Specific [place] 1.020 Urine Protein 2+ H Urine Glucose (UA) Negative Urine Ketones Trace H Urine Blood 2+ H Urine Nitrite Negative Urine Bilirubin Negative Urine Urobilinogen 1.0 Ur Leukocyte Esterase Negative Urine WBC (Auto) 1 Urine RBC (Auto) 15-20 Urine Casts (Auto) 24 U Pathogenic Cast Auto Positive U Epithel Cells (Auto) 5.1 U Sm Round Cell (Auto) Negative Urine Bacteria (Auto) 1.0 Influenza A (Rapid) Influenza B (Rapid) 02/26/19 02/27/19 02/27/19 20:30 00:20 01:57 WBC RBC Hgb Hct MCV MCH MCHC RDW Plt Count MPV Absolute Neuts (auto) Neutrophils % Neutrophils % (Manual) Band Neutrophils % Lymphocytes % Lymphocytes % (Manual) Monocytes % Monocytes % (Manual) Eosinophils % Eosinophils % (Manual) Basophils % Basophils % (Manual) Myelocytes % (Man) Promyelocytes % (Man) Blast Cells % (Manual) Nucleated RBC % Metamyelocytes Hypochromia Platelet Estimate Platelet Comment Polychromasia Poikilocytosis Anisocytosis Microcytosis Macrocytosis PT with INR INR PTT (Actin FS) Anticoagulation Therapy No Result Required. Puncture Site No Result Required. ABG pH 7.32 L ABG pCO2 at Pt Temp 37.6 ABG pO2 at Pt Temp 106 H ABG HCO3 19.0 L ABG O2 Sat (Measured) 97.9 ABG O2 Content 14.6 ABG Base Excess -6.0 L Bj Test No Result Required. VBG pH POC VBG pCO2 POC VBG pO2 VBG HCO3 VBG O2 Sat (Brittney) VBG Base Excess O2 Delivery Device No Result Required. Oxygen Flow Rate No Result Required. Vent Mode No Result Required. Vent Rate No Result Required. Mechanical Rate No Result Required. PEEP Pressure Support Vent No Result Required. Sodium Potassium Chloride Carbon Dioxide Anion Gap BUN Creatinine Est GFR (CKD-EPI)AfAm Est GFR (CKD-EPI)NonAf Random Glucose Hemoglobin A1c % Lactic Acid 3.1 H* Calcium Phosphorus Magnesium Total Bilirubin AST ALT Alkaline Phosphatase Creatine Kinase Troponin I B-Natriuretic Peptide Total Protein Albumin Urine Color Urine Appearance Urine pH Ur Specific [place] Urine Protein Urine Glucose (UA) Urine Ketones Urine Blood Urine Nitrite Urine Bilirubin Urine Urobilinogen Ur Leukocyte Esterase Urine WBC (Auto) Urine RBC (Auto) Urine Casts (Auto) U Pathogenic Cast Auto U Epithel Cells (Auto) U Sm Round Cell (Auto) Urine Bacteria (Auto) Influenza A (Rapid) Negative Influenza B (Rapid) Negative 02/27/19 02/27/19 02/27/19 05:45 05:45 05:45 WBC 18.2 H RBC 3.96 Hgb 10.5 L Hct 33.0 D MCV 83.4 MCH 26.4 MCHC 31.7 L RDW 16.5 H Plt Count 171 D MPV 9.9 D Absolute Neuts (auto) 16.3 H Neutrophils % 89.5 H Neutrophils % (Manual) Band Neutrophils % Lymphocytes % 2.8 L Lymphocytes % (Manual) Monocytes % 7.5 Monocytes % (Manual) Eosinophils % 0.0 Eosinophils % (Manual) Basophils % 0.2 D Basophils % (Manual) Myelocytes % (Man) Promyelocytes % (Man) Blast Cells % (Manual) Nucleated RBC % 0 Metamyelocytes Hypochromia Platelet Estimate Platelet Comment Polychromasia Poikilocytosis Anisocytosis Microcytosis Macrocytosis PT with INR 22.60 H INR 1.90 H PTT (Actin FS) 37.3 H Anticoagulation Therapy Puncture Site ABG pH ABG pCO2 at Pt Temp ABG pO2 at Pt Temp ABG HCO3 ABG O2 Sat (Measured) ABG O2 Content ABG Base Excess Bj Test VBG pH POC VBG pCO2 POC VBG pO2 VBG HCO3 VBG O2 Sat (Brittney) VBG Base Excess O2 Delivery Device Oxygen Flow Rate Vent Mode Vent Rate Mechanical Rate PEEP Pressure Support Vent Sodium Potassium Chloride Carbon Dioxide Anion Gap BUN Creatinine Est GFR (CKD-EPI)AfAm Est GFR (CKD-EPI)NonAf Random Glucose Hemoglobin A1c % 5.3 Lactic Acid Calcium Phosphorus Magnesium Total Bilirubin AST ALT Alkaline Phosphatase Creatine Kinase Troponin I B-Natriuretic Peptide Total Protein Albumin Urine Color Urine Appearance Urine pH Ur Specific [place] Urine Protein Urine Glucose (UA) Urine Ketones Urine Blood Urine Nitrite Urine Bilirubin Urine Urobilinogen Ur Leukocyte Esterase Urine WBC (Auto) Urine RBC (Auto) Urine Casts (Auto) U Pathogenic Cast Auto U Epithel Cells (Auto) U Sm Round Cell (Auto) Urine Bacteria (Auto) Influenza A (Rapid) Influenza B (Rapid) 02/27/19 02/27/19 02/27/19 05:45 06:00 06:55 WBC RBC Hgb Hct MCV MCH MCHC RDW Plt Count MPV Absolute Neuts (auto) Neutrophils % Neutrophils % (Manual) Band Neutrophils % Lymphocytes % Lymphocytes % (Manual) Monocytes % Monocytes % (Manual) Eosinophils % Eosinophils % (Manual) Basophils % Basophils % (Manual) Myelocytes % (Man) Promyelocytes % (Man) Blast Cells % (Manual) Nucleated RBC % Metamyelocytes Hypochromia Platelet Estimate Platelet Comment Polychromasia Poikilocytosis Anisocytosis Microcytosis Macrocytosis PT with INR INR PTT (Actin FS) Anticoagulation Therapy No Result Required. Puncture Site Left brachial ABG pH 7.23 L ABG pCO2 at Pt Temp 51.5 H ABG pO2 at Pt Temp 71.9 L ABG HCO3 20.7 L ABG O2 Sat (Measured) 92.9 L ABG O2 Content 14.6 ABG Base Excess -6.5 L Bj Test Positive VBG pH POC VBG pCO2 POC VBG pO2 VBG HCO3 VBG O2 Sat (Brittney) VBG Base Excess O2 Delivery Device Vent Oxygen Flow Rate 55% Vent Mode A/c Vent Rate 0 Mechanical Rate Yes PEEP 5.0 Pressure Support Vent 350 Sodium 134 L Potassium 5.3 H Chloride 104 Carbon Dioxide 23 Anion Gap 7 L BUN 21.0 H Creatinine 1.1 Est GFR (CKD-EPI)AfAm 60.16 Est GFR (CKD-EPI)NonAf 51.91 Random Glucose 234 H Hemoglobin A1c % Lactic Acid 2.4 H* Calcium 7.5 L Phosphorus 2.5 Magnesium 1.6 L Total Bilirubin 0.4 AST 32 ALT 25 Alkaline Phosphatase 41 L Creatine Kinase Troponin I B-Natriuretic Peptide Total Protein 5.4 L Albumin 2.6 L Urine Color Urine Appearance Urine pH Ur Specific [place] Urine Protein Urine Glucose (UA) Urine Ketones Urine Blood Urine Nitrite Urine Bilirubin Urine Urobilinogen Ur Leukocyte Esterase Urine WBC (Auto) Urine RBC (Auto) Urine Casts (Auto) U Pathogenic Cast Auto U Epithel Cells (Auto) U Sm Round Cell (Auto) Urine Bacteria (Auto) Influenza A (Rapid) Influenza B (Rapid) ASSESSMENT/PLAN: Acute Respiratory Failure due to PNA Septic Shock AE of COPD History of O2 dependent COPD HTN Lung CA S/P resection 2013 Right Breast CA, s/p radiation in 2009 Lactic acidosis R/O Metabolic Encephalopathy AC Mode of vent, settings were adjusted Titrate pressors to maintain MAP > 65 [place]-culture ABX per ID Medrol BD TX Follow ABG post vent changes IVF Daily sedation vacation Strict I & O Requires ICU monitoring Dr Harris Critical care time spent in reviewing chart, evaluating patient and formulating plan - 36 minutes.
[2019-02-27] MEDS ORDERED: NOREPINEPHRINE BITARTRATE 4 MG/4 ML ML IV ONE (10:07)
[2019-02-27] MEDS ORDERED: PT OWN MED DRAWER 7, Y5N ONE (10:13)
[2019-02-27] MEDS: DOXYCYCLINE INJECTION 100 MG in DEXTROSE 5%-WATER - 100 ML IVPB SCH ×2 (10:14→21:44)
[2019-02-27 10:48] LABS: ALLENS TEST POSITIVE
[2019-02-27 10:51] LABS: ANISOCYTOSIS 2+; MACROCYTOSIS 0; OVALOCYTE 1+; PLATELET ESTIMATE NORMAL
[2019-02-27 10:56] LABS: ARTERIAL BLD GAS O2 SATURATION 98.1 % (95-98); ARTERIAL BLOOD GAS BASE EXCESS -5.8 meq/l (-2-2); ARTERIAL BLOOD GAS PCO2 46.5 mmHg (35-45); ARTERIAL BLOOD GAS PO2 118 mmHg (80-100); ARTERIAL BLOOD GAS pH 7.27 (7.35-7.45)
[2019-02-27] MEDS: FENTANYL INJECTION 500 MCG in DEXTROSE 5%-WATER - 90 ML IVPB SCH ×2 (12:07→17:51)
[2019-02-27 14:40] LABS: ARTERIAL BLOOD GAS BASE EXCESS -6.7 meq/l (-2-2); ARTERIAL BLOOD GAS PCO2 38.8 mmHg (35-45); ARTERIAL BLOOD GAS PO2 163 mmHg (80-100)
[2019-02-27 14:41] LABS: ALLENS TEST POSITIVE
[2019-02-27] MEDS: MIDAZOLAM 100 MG in SODIUM CHLORIDE 100 ML IVPB SCH (15:22)
[2019-02-27] MEDS ORDERED: BENZOIN/ALOE VERA/STORAX/TOLU 58 ML BOTTLE ONE (15:48)
--- NOTE | 2019-02-27 16:02 | PN ---
Physical Exam: SUBJECTIVE: Patient seen and examined in ICU. No acute events. Pt intubated and sedated on levo 10mcg. OBJECTIVE: Vital Signs Period Temp Pulse Resp BP Sys/Sawyer Pulse Ox Last 24 Hr 97.3 F-101.3 F 64-128 16-24 63-164/38-88 96-100 GENERAL: The patient is intubated and sedated. NECK: supple. LUNGS: Breath sounds reduced at bases HEART: tachycardic and regular rhythm, S1, S2 without murmur, rub or gallop. ABDOMEN: Soft, nontender, nondistended, normoactive bowel sounds, no guarding, no rebound. EXTREMITIES: warm, well-perfused, no edema. NEUROLOGICAL: sedated PSYCH: sedated SKIN: Warm, dry, no rashes or lesions noted Laboratory Results - last 24 hr 02/27/19 02/27/19 02/27/19 05:45 05:45 05:45 WBC 18.2 H RBC 3.96 Hgb 10.5 L Hct 33.0 D MCV 83.4 MCH 26.4 MCHC 31.7 L RDW 16.5 H Plt Count 171 D MPV 9.9 D Absolute Neuts (auto) 16.3 H Neutrophils % 89.5 H Neutrophils % (Manual) 27.0 L Band Neutrophils % 37.0 Lymphocytes % 2.8 L Lymphocytes % (Manual) 1.0 L D Monocytes % 7.5 Monocytes % (Manual) 6 Eosinophils % 0.0 Eosinophils % (Manual) 0.0 Basophils % 0.2 D Basophils % (Manual) 0.0 Myelocytes % (Man) 5 H D Promyelocytes % (Man) 0 Blast Cells % (Manual) 0 Nucleated RBC % 0 Metamyelocytes 24 H D Hypochromia 0 Platelet Estimate Normal Platelet Comment Present Polychromasia 1+ Poikilocytosis 2+ Anisocytosis 2+ Microcytosis 2+ Macrocytosis 0 Ovalocytes 1+ Odin Cells 1+ Acanthocytes (Spur) 1+ PT with INR 22.60 H INR 1.90 H PTT (Actin FS) 37.3 H Anticoagulation Therapy Puncture Site ABG pH ABG pCO2 at Pt Temp ABG pO2 at Pt Temp ABG HCO3 ABG O2 Sat (Measured) ABG O2 Content ABG Base Excess Bj Test O2 Delivery Device Oxygen Flow Rate Vent Mode Vent Rate Mechanical Rate PEEP Pressure Support Vent Sodium 134 L Potassium 5.3 H Chloride 104 Carbon Dioxide 23 Anion Gap 7 L BUN 21.0 H Creatinine 1.1 Est GFR (CKD-EPI)AfAm 60.16 Est GFR (CKD-EPI)NonAf 51.91 Random Glucose 234 H Hemoglobin A1c % Lactic Acid Calcium 7.5 L Phosphorus 2.5 Magnesium 1.6 L Total Bilirubin 0.4 AST 32 ALT 25 Alkaline Phosphatase 41 L Total Protein 5.4 L Albumin 2.6 L Urine RBC (Auto) U Pathogenic Cast Auto U Sm Round Cell (Auto) Influenza A (Rapid) Influenza B (Rapid) Active Medications Generic Name Dose Route Start Last Admin Trade Name Freq PRN Reason Stop Dose Admin Acetaminophen 600 mg 02/26/19 23:57 02/27/19 00:20 Ofirmev Injection - IVPB 600 mg Q6H PRN Administration FEVER Albuterol Sulfate 1 amp 02/26/19 16:00 02/27/19 04:37 Ventolin 0.083% Nebulizer Soln - NEB 1 amp RQ4H [facility] Administration Albuterol/Ipratropium 1 amp 02/26/19 16:00 02/27/19 11:16 Duoneb - NEB 1 amp RQID [facility] Administration Chlorhexidine Gluconate 1 applic 02/26/19 22:00 02/27/19 01:25 Hibiclens For Decolonization - TP 1 applic HS [facility] Administration Docusate Sodium 100 mg 02/26/19 22:00 02/27/19 09:21 Colace Liquid - PO 100 mg BID [facility] Administration Heparin Sodium (Porcine) 5,000 unit 02/26/19 22:00 02/27/19 09:22 Heparin - SQ 5,000 unit BID [facility] Administration Midazolam HCl 100 mg/ Sodium 100 mls @ 1 mls/hr 02/26/19 13:00 02/27/19 15:22 Chloride IVPB Not Given TITR [facility] Protocol 1 MG/HR Sodium Chloride 1,000 mls @ 100 mls/hr 02/26/19 14:30 02/26/19 14:53 Normal Saline - IV 100 mls/hr ASDIR [facility] Administration Ceftriaxone Sodium 1 gm/ 50 mls @ 200 mls/hr 02/26/19 15:00 02/27/19 09:18 Dextrose IVPB 200 mls/hr DAILY [facility] Administration Protocol Fentanyl 500 mcg/ Dextrose 100 mls @ 10 mls/hr 02/26/19 15:15 02/27/19 12:07 IVPB 75 mcg/hr TITR BRIE 15 mls/hr Administration 50 MCG/HR Norepinephrine Bitartrate 8, 500 mls @ 18.75 mls/hr 02/26/19 23:45 02/27/19 11:00 000 mcg/ Dextrose IV 10 mcg/min TITR BRIE 37.5 mls/hr Titration Protocol 5 MCG/MIN Doxycycline Hyclate 100 mg/ 100 mls @ 100 mls/hr 02/27/19 10:00 02/27/19 10: 14 Dextrose IVPB 100 mls/hr BID BRIE Administration Methylprednisolone Sodium Succinate 60 mg 02/26/19 14:45 02/27/19 15:24 Solu-Medrol - IVPB 60 mg Q8H [facility] Administration Mupirocin 1 applic 02/26/19 22:00 02/27/19 09:34 Bactroban Ointment (For Decolonization) - NS 03/03/19 21:59 1 applic BID BRIE Administration Pantoprazole Sodium 40 mg 02/27/19 10:00 02/27/19 09:34 Protonix Iv IVPUSH 40 mg DAILY [facility]E Administration Senna 8.8 mg 02/26/19 22:00 02/26/19 21:18 Senna Oral Solution - PO Not Given HS [facility]E ASSESSMENT/PLAN: The patient is a 67 year old female with a significant PMH of COPD on 2 L Oxygen at home, h/o of intubation for COPD, HTN, left sided lung Ca, s/p surgery 2013, right breast Ca, s/p radiation in 2009 BIBA for SOB and cough for few days, was found in ED to be in acute respiratory distress with AMS and was intubated and admitted to ICU for COPD exacerbation . #Acute hypoxic hypercapnic resp failure [facility] 2/2 COPD exacerbation/ malignancy /h/o Lung Cancer * likely caused by pneumonia, COPD exacerbation, CXR with left base infiltrate, right base effusion * continue Duonebs PRN and BRIE * will continue Solu-medrol 60 mg Q8H * f/u ABG: s/p vent setting adjustement TV 450 PEEP 5 Rate- 14. pH acidotic so increased TV to help blow off CO2. * Flu swab, Legionella ag, * sputum culture * f/u blood/urine culture * continue NS @ 100 CC/hr * ID consulted, will f/u recommendations * Maintain O2 Sat > 88-90% * maintain MAP > 65 * pt intubated and sedated * low tidal volume ventilation 8cc/kg/IBW * levo 10mcg * TSH , B12, folic acid , CT head ID -> Severe sepsis 2/2 PNA - continue AZT/Ceftriaxone for CAP coverage considering pt came from home - serology panel pending Cardio -> HTN * hold Norvasc 5 mg daily * ECHO ordered to assess LV function #DVT PPX: * Heparin sq #F/E/N; * NS @ 100 C/hr * Monitor lytes * NPO Dispo: We will continue to follow the patient. Thank you for this consultative opportunity. Visit type - Emergency Visit Emergency Visit: Yes ED Registration Date: 02/26/19 Care time: The patient presented to the Emergency Department on the above date and was hospitalized for further evaluation of their emergent condition. - New Patient This patient is new to me today: Yes Date on this admission: 02/27/19 - Critical Care Critical Care patient: Yes Total Critical Care Time (in minutes): 40 Critical Care Statement: The care of this patient involved high complexity decision making to prevent further life threatening deterioration of the patient 's condition and/or to evaluate & treat vital organ system(s) failure or risk of failure. - Discharge Referral Referred to [facility] No ATTENDING PHYSICIAN STATEMENT I saw and evaluated the patient. I reviewed the resident's note and discussed the case with the resident. I agree with the resident's findings and plan as documented. SUBJECTIVE: OBJECTIVE: ASSESSMENT AND PLAN:
[2019-02-27] MEDS: SODIUM CHLORIDE 1,000 ML IV SCH (16:05)
--- NOTE | 2019-02-27 21:56 | EKG ---
Test Reason : Blood Pressure : / mmHG Vent. Rate : 065 BPM Atrial Rate : 065 BPM P-R Int : 126 ms QRS Dur : 084 ms QT Int : 398 ms P-R-T Axes : 081 059 071 degrees QTc Int : 413 ms NORMAL SINUS RHYTHM WITH SINUS ARRHYTHMIA LOW VOLTAGE QRS NONSPECIFIC T WAVE ABNORMALITY ABNORMAL ECG WHEN COMPARED WITH ECG OF 26-FEB-2019 12:08, VENT. RATE HAS DECREASED BY 79 BPM NON-SPECIFIC CHANGE IN ST SEGMENT IN INFERIOR LEADS ST NO LONGER DEPRESSED IN LATERAL LEADS T WAVE INVERSION MORE EVIDENT IN ANTERIOR LEADS NONSPECIFIC T WAVE ABNORMALITY NO LONGER EVIDENT IN LATERAL LEADS Confirmed by Maggi Roberts ([id number]) on 02/27/2019 9:55:56 PM Referred By: Humberto MARQUEZ Confirmed By:Maggi Roberts
[2019-02-27] MEDS: SENNOSIDES 8.8 MG/5 ML BULK BOTTLE PO SCH (22:26)
[2019-02-28] MEDS: NOREPINEPHRINE BITARTRATE 8,000 MCG in DEXTROSE 5%-WATER - 492 ML IV SCH (01:12)
[2019-02-28] MEDS ORDERED: fentaNYL CITRATE 250 MCG/5 ML VIAL ONE ×2 (02:15→09:50)
[2019-02-28] MEDS: FENTANYL INJECTION 500 MCG in DEXTROSE 5%-WATER - 90 ML IVPB SCH ×2 (02:25→17:47)
[2019-02-28] MEDS: methylPREDNISolone NA SUCC 40 MG/1 ML VIAL IVPB SCH ×3 (06:26→21:50)
[2019-02-28 07:00] LABS: ARTERIAL BLD GAS O2 SATURATION 98.3 % (95-98); ARTERIAL BLOOD GAS BASE EXCESS -5.1 meq/l (-2-2); ARTERIAL BLOOD GAS PCO2 39.3 mmHg (35-45); ARTERIAL BLOOD GAS PO2 124 mmHg (80-100); ARTERIAL BLOOD GAS pH 7.33 (7.35-7.45)
[2019-02-28 07:00] LABS: BASO % 0.5 % (0-2.0); HEMATOCRIT 31.2 % (32.4-45.2); HEMOGLOBIN 9.8 GM/dL (10.7-15.3); LYMPH % 1.5 % (8-40); MCH 25.8 pg (25.7-33.7); MCHC 31.3 g/dl (32.0-36.0); MEAN CELL VOLUME 82.5 fl (80-96); MEAN PLT VOLUME 11.7 fl (7.5-11.1); MONO % 7.6 % (3.8-10.2); NEUT % 90.4 % (42.8-82.8); PLATELET COUNT 169 K/MM3 (134-434); RBC 3.78 M/mm3 (3.60-5.2); RDW 16.1 % (11.6-15.6); WHITE BLOOD COUNT 23.5 K/mm3 (4.0-10.0)
[2019-02-28 07:12] LABS: ALLENS TEST POSITIVE
[2019-02-28] MEDS: ALBUTEROL SO4 0.083% IH SOL 2.5 MG/3 ML VIAL.NEB. NEB SCH ×2 (07:25→20:10)
[2019-02-28] MEDS: ALBUTEROL SO4 2.5/IPRATROPIUM 0.5 INH SOL 3 ML VIAL.NEB. NEB SCH ×4 (07:25→20:10)
[2019-02-28 07:33] LABS: ALBUMIN 2.2 g/dl (3.4-5.0); BILIRUBIN,TOTAL 0.4 mg/dL (0.2-1); BLOOD UREA NITROGEN 19.7 mg/dL (7-18); CALCIUM 8.1 mg/dL (8.5-10.1); CREATININE 1.1 mg/dL (0.55-1.3); MAGNESIUM 2.1 mg/dL (1.8-2.4); PHOSPHOROUS 2.2 mg/dL (2.5-4.9); POTASSIUM 4.2 mmol/L (3.5-5.1); TOT PROT 5.2 g/dl (6.4-8.2)
[2019-02-28] MEDS ORDERED: POTASSIUM PHOSPHATE 15 MM in SODIUM CHLORIDE 250 ML IVPB ONE (08:24)
--- NOTE | 2019-02-28 09:03 | PN ---
<Wilber Conway - Last Filed: 02/28/19 09:02> Physical Exam: SUBJECTIVE: Patient seen and examined OBJECTIVE: Vital Signs Period Temp Pulse Resp BP Sys/Sawyer Pulse Ox Last 24 Hr 97.3 F-98.4 F 57-106 16-20 66-139/55-85 96-100 GENERAL: The patient is awake, alert, and fully oriented, in no acute distress. HEAD: Normal with no signs of trauma. EYES: PERRL, extraocular movements intact, sclera anicteric, conjunctiva clear. No ptosis. ENT: Ears normal, nares patent, oropharynx clear without exudates, moist mucous membranes. NECK: Trachea midline, full range of motion, supple. LUNGS: Breath sounds equal, clear to auscultation bilaterally, no wheezes, no crackles, no accessory muscle use. HEART: Regular rate and rhythm, S1, S2 without murmur, rub or gallop. ABDOMEN: Soft, nontender, nondistended, normoactive bowel sounds, no guarding, no rebound, no hepatosplenomegaly, no masses. EXTREMITIES: 2+ pulses, warm, well-perfused, no edema. NEUROLOGICAL: Cranial nerves II through XII grossly intact. Normal speech, gait not observed. PSYCH: Normal mood, normal affect. SKIN: Warm, dry, normal turgor, no rashes or lesions noted Laboratory Results - last 24 hr 02/27/19 02/27/19 02/27/19 05:45 09:15 09:15 WBC RBC Hgb Hct MCV MCH MCHC RDW Plt Count MPV Absolute Neuts (auto) Neutrophils % Neutrophils % (Manual) 27.0 L Band Neutrophils % 37.0 Lymphocytes % Lymphocytes % (Manual) 1.0 L D Monocytes % Monocytes % (Manual) 6 Eosinophils % Eosinophils % (Manual) 0.0 Basophils % Basophils % (Manual) 0.0 Myelocytes % (Man) 5 H D Promyelocytes % (Man) 0 Blast Cells % (Manual) 0 Nucleated RBC % Metamyelocytes 24 H D Hypochromia 0 Platelet Estimate Normal Platelet Comment Present Polychromasia 1+ Poikilocytosis 2+ Anisocytosis 2+ Microcytosis 2+ Macrocytosis 0 Ovalocytes 1+ [place] Cells 1+ Acanthocytes (Spur) 1+ Anticoagulation Therapy Puncture Site ABG pH ABG pCO2 at Pt Temp ABG pO2 at Pt Temp ABG HCO3 ABG O2 Sat (Measured) ABG O2 Content ABG Base Excess Bj Test O2 Delivery Device Oxygen Flow Rate Vent Mode Vent Rate Mechanical Rate PEEP Pressure Support Vent Sodium Potassium 5.0 Chloride Carbon Dioxide Anion Gap BUN Creatinine Est GFR (CKD-EPI)AfAm Est GFR (CKD-EPI)NonAf Random Glucose Lactic Acid 2.4 H* Calcium Phosphorus Magnesium Total Bilirubin AST ALT Alkaline Phosphatase Total Protein Albumin 02/27/19 02/27/19 02/27/19 10:43 14:00 15:30 WBC RBC Hgb Hct MCV MCH MCHC RDW Plt Count MPV Absolute Neuts (auto) Neutrophils % Neutrophils % (Manual) Band Neutrophils % Lymphocytes % Lymphocytes % (Manual) Monocytes % Monocytes % (Manual) Eosinophils % Eosinophils % (Manual) Basophils % Basophils % (Manual) Myelocytes % (Man) Promyelocytes % (Man) Blast Cells % (Manual) Nucleated RBC % Metamyelocytes Hypochromia Platelet Estimate Platelet Comment Polychromasia Poikilocytosis Anisocytosis Microcytosis Macrocytosis Ovalocytes [place] Cells Acanthocytes (Spur) Anticoagulation Therapy No Result Required. No Result Required. Puncture Site Right radial Right radial ABG pH 7.27 L 7.30 L ABG pCO2 at Pt Temp 46.5 H 38.8 ABG pO2 at Pt Temp 118 H 163 H ABG HCO3 20.4 L 18.6 L ABG O2 Sat (Measured) 98.1 H 99.0 H ABG O2 Content 14.0 14.5 ABG Base Excess -5.8 L -6.7 L Bj Test Positive Positive O2 Delivery Device Vent Vent Oxygen Flow Rate 65% 65 Vent Mode A/c Ac Vent Rate 16 16 Mechanical Rate Yes No Result Required. PEEP 5.0 5.0 Pressure Support Vent 450 500 Sodium Potassium Chloride Carbon Dioxide Anion Gap BUN Creatinine Est GFR (CKD-EPI)AfAm Est GFR (CKD-EPI)NonAf Random Glucose Lactic Acid 2.0 Calcium Phosphorus Magnesium Total Bilirubin AST ALT Alkaline Phosphatase Total Protein Albumin 02/28/19 02/28/19 02/28/19 06:00 06:00 06:35 WBC 23.5 H RBC 3.78 Hgb 9.8 L Hct 31.2 L MCV 82.5 MCH 25.8 MCHC 31.3 L RDW 16.1 H Plt Count 169 MPV 11.7 H D Absolute Neuts (auto) 21.3 H Neutrophils % 90.4 H Neutrophils % (Manual) Band Neutrophils % Lymphocytes % 1.5 L D Lymphocytes % (Manual) Monocytes % 7.6 Monocytes % (Manual) Eosinophils % 0.0 Eosinophils % (Manual) Basophils % 0.5 Basophils % (Manual) Myelocytes % (Man) Promyelocytes % (Man) Blast Cells % (Manual) Nucleated RBC % 0 Metamyelocytes Hypochromia Platelet Estimate Platelet Comment Polychromasia Poikilocytosis Anisocytosis Microcytosis Macrocytosis Ovalocytes [place] Cells Acanthocytes (Spur) Anticoagulation Therapy No Result Required. Puncture Site Left radial ABG pH 7.33 L ABG pCO2 at Pt Temp 39.3 ABG pO2 at Pt Temp 124 H ABG HCO3 19.9 L ABG O2 Sat (Measured) 98.3 H ABG O2 Content 15.6 ABG Base Excess -5.1 L Bj Test Positive O2 Delivery Device Vent Oxygen Flow Rate 60% Vent Mode A/c Vent Rate 16 Mechanical Rate No Result Required. PEEP 5.0 Pressure Support Vent 500 Sodium 140 Potassium 4.2 Chloride 112 H Carbon Dioxide 23 Anion Gap 5 L BUN 19.7 H Creatinine 1.1 Est GFR (CKD-EPI)AfAm 60.16 Est GFR (CKD-EPI)NonAf 51.91 Random Glucose 107 H Lactic Acid Calcium 8.1 L Phosphorus 2.2 L Magnesium 2.1 Total Bilirubin 0.4 AST 36 ALT 26 Alkaline Phosphatase 62 Total Protein 5.2 L Albumin 2.2 L Active Medications Generic Name Dose Route Start Last Admin Trade Name Freq PRN Reason Stop Dose Admin Acetaminophen 600 mg 02/26/19 23:57 02/27/19 00:20 Ofirmev Injection - IVPB 600 mg Q6H PRN Administration FEVER Albuterol Sulfate 1 amp 02/26/19 16:00 02/28/19 07:25 Ventolin 0.083% Nebulizer Soln - NEB Not Given RQ4H BRIE Albuterol/Ipratropium 1 amp 02/26/19 16:00 02/28/19 07:25 Duoneb - NEB 1 amp RQID BRIE Administration Chlorhexidine Gluconate 1 applic 02/26/19 22:00 02/27/19 21:44 Hibiclens For Decolonization - TP 1 applic HS BRIE Administration Docusate Sodium 100 mg 02/26/19 22:00 10/13/19 21:44 Colace Liquid - PO 100 mg BID BRIE Administration Heparin Sodium (Porcine) 5,000 unit 02/26/19 22:00 02/27/19 21:44 Heparin - SQ 5,000 unit BID BRIE Administration Midazolam HCl 100 mg/ Sodium 100 mls @ 1 mls/hr 02/26/19 13:00 02/28/19 06:48 Chloride IVPB 5 mg/hr TITR BRIE 5 mls/hr Titration Protocol 1 MG/HR Sodium Chloride 1,000 mls @ 100 mls/hr 02/26/19 14:30 02/27/19 16:05 Normal Saline - IV 100 mls/hr ASDIR BRIE Administration Ceftriaxone Sodium 1 gm/ 50 mls @ 200 mls/hr 02/26/19 15:00 02/27/19 09:18 Dextrose IVPB 200 mls/hr DAILY BRIE Administration Protocol Fentanyl 500 mcg/ Dextrose 100 mls @ 10 mls/hr 02/26/19 15:15 02/28/19 06:49 IVPB 85 mcg/hr TITR BRIE 17 mls/hr Titration 50 MCG/HR Norepinephrine Bitartrate 8, 500 mls @ 18.75 mls/hr 02/26/19 23:45 02/28/19 08:55 000 mcg/ Dextrose IV 4 mcg/min TITR BRIE 15 mls/hr Titration Protocol 5 MCG/MIN Doxycycline Hyclate 100 mg/ 100 mls @ 100 mls/hr 02/27/19 10:00 02/27/19 21: 44 Dextrose IVPB 100 mls/hr BID BRIE Administration Potassium Phosphate 15 mm/ 255 mls @ 62.5 mls/hr 02/28/19 08:24 Sodium Chloride IVPB 02/28/19 12:28 ONCE ONE Methylprednisolone Sodium Succinate 60 mg 02/26/19 14:45 02/28/19 06:26 Solu-Medrol - IVPB 60 mg Q8H BRIE Administration Mupirocin 1 applic 02/26/19 22:00 02/27/19 21:44 Bactroban Ointment (For Decolonization) - NS 03/03/19 21:59 1 applic BID BRIE Administration Pantoprazole Sodium 40 mg 02/27/19 10:00 02/27/19 09:34 Protonix Iv IVPUSH 40 mg DAILY BRIE Administration Senna 8.8 mg 02/26/19 22:00 02/27/19 22:26 Senna Oral Solution - PO 8.8 mg HS BRIE Administration ASSESSMENT/PLAN: ATTENDING PHYSICIAN STATEMENT I saw and evaluated the patient. I reviewed the resident's note and discussed the case with the resident. I agree with the resident's findings and plan as documented. SUBJECTIVE: OBJECTIVE: ASSESSMENT AND PLAN: <Eric Woodall - Last Filed: 03/01/19 09:08> Physical Exam: Seen and examined; agree with resident note aside from as documented. Independently reviewed and verified all VS, labs, imaging reviewed. All diagnostics independently interpreted unless indicated Mild distress RASS 3 intubated and sedated in ICU; vent settings per records NC AT EOMI; ET tube in place Lines in place NT ND +BS Regular to slightly slow rate, no new mgr Lungs with vent-associated breath sounds, w/ sym exp, some coarse sounds noted CN2-12 wnl, normal pupils, normal reflexes, withdrawals to pain Not agitated, cannot fully assess psych No rashes or skin breakdown noted Trachea midline, no cassia LN, neck is supple, no goiters CXR personally reviewed Micro reviewed; ngtd on cultures Overall her problems include: -Acute on chronic mixed respiratory failure requiring mechanical ventillation -Elevated BNP -Hx Lung cancer -Hx COPD on home O2, PFTs unknown -Septic shock vs. hypotension 2/2 induction in the setting of respiratory failure-on broad spectrum and w/o fever, pending ID consult -Hypoalbuminemia -HypooMg -HyperK -Hx Gastric CA ATTENDING PHYSICIAN STATEMENT I saw and evaluated the patient. I reviewed the resident's note and discussed the case with the resident. I agree with the resident's findings and plan as documented. SUBJECTIVE: OBJECTIVE: ASSESSMENT AND PLAN:
[2019-02-28] MEDS ORDERED: PT OWN MED DRAWER 7, Y5N ONE ×2 (09:07→22:00)
[2019-02-28] MEDS ORDERED: cefTRIAXone SODIUM 1 GM VIAL ONE (09:07)
[2019-02-28] MEDS ORDERED: DEXTROSE 5%-WATER - 50 ML IVPB ONE (09:08)
[2019-02-28] MEDS: PANTOPRAZOLE SODIUM 40 MG VIAL IVPUSH SCH (09:35)
[2019-02-28] MEDS: CEFTRIAXONE 1 GM in DEXTROSE 5%-WATER - 50 ML IVPB SCH (09:35)
[2019-02-28] MEDS: HEPARIN NA (PORCINE) 5,000 UNITS/ML 1ML VIAL SQ SCH ×2 (09:36→22:08)
[2019-02-28] MEDS: DOCUSATE NA 100 MG/10 ML UNIT-DOSE CUPS PO SCH ×2 (09:36→21:50)
[2019-02-28] MEDS: MUPIROCIN 2% TOPICAL OINTMENT FOR DECOLONIZATION NS SCH ×2 (09:37→22:01)
[2019-02-28] MEDS: DOXYCYCLINE INJECTION 100 MG in DEXTROSE 5%-WATER - 100 ML IVPB SCH ×2 (09:39→22:00)
[2019-02-28] MEDS ORDERED: MIDAZOLAM IN 0.9 % SOD.CHLORID 1 MG/1 ML PLAST..BAG ONE (09:51)
[2019-02-28 12:24] LABS: ANISOCYTOSIS 1+; MACROCYTOSIS 0; PLATELET ESTIMATE NORMAL
--- NOTE | 2019-02-28 13:01 | PN ---
Teaching Attending Note Name of Resident: Leonard Ramirez ATTENDING PHYSICIAN STATEMENT I saw and evaluated the patient. I reviewed the resident's note and discussed the case with the resident. I agree with the resident's findings and plan as documented. SUBJECTIVE: Pt seen and examined in the ICU. Remains intubated, arousable off sedation, on levophed gtt. Placed on CPAP/PS trials during rounds. OBJECTIVE: Vital Signs Period Temp Pulse Resp BP Sys/Sawyer Pulse Ox Last 24 Hr 97.6 F-98.4 F 57-106 10-16 108-139/60-83 99-100 Intake & Output 02/25/19 02/26/19 02/27/19 02/28/19 23:59 23:59 23:59 23:59 Intake Total 2619 6294 Output Total 350 2200 Balance 2269 4094 Weight 63.503 kg 52.2 kg 54.431 kg Gen: intubated, arousable Heart: RRR Lung: scattered rhonchi Abd: soft, nontender Ext: no edema CBC, BMP 02/28/19 06:00 02/28/19 06:00 Active Medications Acetaminophen (Ofirmev Injection -) 600 mg IVPB Q6H PRN PRN Reason: FEVER Last Admin: 02/27/19 00:20 Dose: 600 mg Albuterol Sulfate (Ventolin 0.083% Nebulizer Soln -) 1 amp NEB RQ4H BRIE Last Admin: 02/28/19 07:25 Dose: Not Given Albuterol/Ipratropium (Duoneb -) 1 amp NEB RQID BRIE Last Admin: 02/28/19 11:20 Dose: 1 amp Chlorhexidine Gluconate (Hibiclens For Decolonization -) 1 applic TP HS [facility] Last Admin: 02/27/19 21:44 Dose: 1 applic Docusate Sodium (Colace Liquid -) 100 mg PO BID BRIE Last Admin: 02/28/19 09:36 Dose: 100 mg Heparin Sodium (Porcine) (Heparin -) 5,000 unit SQ BID BRIE Last Admin: 02/28/19 09:36 Dose: 5,000 unit Midazolam HCl 100 mg/ Sodium (Chloride) 100 mls @ 1 mls/hr IVPB TITR BRIE; Protocol Last Titration: 02/28/19 06:48 Dose: 5 mg/hr, 5 mls/hr Sodium Chloride (Normal Saline -) 1,000 mls @ 100 mls/hr IV ASDIR BRIE Last Admin: 02/27/19 16:05 Dose: 100 mls/hr Ceftriaxone Sodium 1 gm/ (Dextrose) 50 mls @ 200 mls/hr IVPB DAILY [facility]; Protocol Last Admin: 02/28/19 09:35 Dose: 200 mls/hr Fentanyl 500 mcg/ Dextrose 100 mls @ 10 mls/hr IVPB TITR [facility] Last Titration: 02/28/19 06:49 Dose: 85 mcg/hr, 17 mls/hr Norepinephrine Bitartrate 8, (000 mcg/ Dextrose) 500 mls @ 18.75 mls/hr IV TITR [facility]; Protocol Last Titration: 02/28/19 10:29 Dose: 2 mcg/min, 7.5 mls/hr Doxycycline Hyclate 100 mg/ (Dextrose) 100 mls @ 100 mls/hr IVPB BID [facility] Last Admin: 02/28/19 09:39 Dose: 100 mls/hr Methylprednisolone Sodium Succinate (Solu-Medrol -) 60 mg IVPB Q8H [facility] Last Admin: 02/28/19 06:26 Dose: 60 mg Mupirocin (Bactroban Ointment (For Decolonization) -) 1 applic NS BID [facility] Stop: 03/03/19 21:59 Last Admin: 02/28/19 09:37 Dose: 1 applic Pantoprazole Sodium (Protonix Iv) 40 mg IVPUSH DAILY [facility] Last Admin: 02/28/19 09:35 Dose: 40 mg Senna (Senna Oral Solution -) 8.8 mg PO HS [facility] Last Admin: 02/27/19 22:26 Dose: 8.8 mg ASSESSMENT AND PLAN: Acute on Chronic Hypoxic and Hypercapneic Respiratory Failure Pneumonia Septic Shock Lactic Acidosis Acute COPD Exacerbation h/o Lung Ca h/o Breast Ca HTN - wean to extubate - continue antibiotics - f/u cultures - IVF - titrate pressors to maintain MAP >65 - monitor urine output, creatinine - continue medrol at current dose - inhaled bronchodilators - O2 to keep Spo2 >90% - DVT/GI prophylaxis - continue ICU monitoring critical care time spent in reviewing chart, evaluating patient and formulating plan 35 min
--- NOTE | 2019-02-28 14:44 | PN ---
Physical Exam: SUBJECTIVE: Patient seen and examined at bedside in the ICU. Intubated. Arousable. On levophed drip. OBJECTIVE: Vital Signs Period Temp Pulse Resp BP Sys/Sawyer Pulse Ox Last 24 Hr 97.6 F-98.4 F 57-119 10-16 107-139/51-83 99-100 GENERAL: The patient is sedated, arousable, in no acute distress. HEAD: Normal with no signs of trauma. EYES: PERRL, sclera anicteric, conjunctiva clear. No ptosis. ENT: Ears normal, nares patent, oropharynx clear without exudates, moist mucous membranes. NECK: Trachea midline, full range of motion, supple. LUNGS: Intubated. Clear to auscultation bilaterally, no accessory muscle use. HEART: Regular rate and rhythm, S1, S2 without murmur, rub or gallop. ABDOMEN: Soft, nontender, nondistended, normoactive bowel sounds, no guarding, no rebound, no hepatosplenomegaly, no masses. EXTREMITIES: 2+ pulses, warm, well-perfused, no edema. NEUROLOGICAL: Unable to assess. PSYCH: Unable to assess. SKIN: Warm, dry, normal turgor, no rashes or lesions noted Laboratory Results - last 24 hr 02/27/19 02/28/19 02/28/19 15:30 06:00 06:00 WBC 23.5 H RBC 3.78 Hgb 9.8 L Hct 31.2 L MCV 82.5 MCH 25.8 MCHC 31.3 L RDW 16.1 H Plt Count 169 MPV 11.7 H D Absolute Neuts (auto) 21.3 H Neutrophils % 90.4 H Neutrophils % (Manual) 85.0 H Band Neutrophils % 10.0 Lymphocytes % 1.5 L D Lymphocytes % (Manual) 1.0 L Monocytes % 7.6 Monocytes % (Manual) 3 L Eosinophils % 0.0 Eosinophils % (Manual) 0.0 Basophils % 0.5 Basophils % (Manual) 0.0 Myelocytes % (Man) 0 D Promyelocytes % (Man) 0 Blast Cells % (Manual) 0 Nucleated RBC % 0 Metamyelocytes 0 D Hypochromia 0 Platelet Estimate Normal Polychromasia 0 Poikilocytosis 1+ Anisocytosis 1+ Microcytosis 1+ Macrocytosis 0 Anticoagulation Therapy Puncture Site ABG pH ABG pCO2 at Pt Temp ABG pO2 at Pt Temp ABG HCO3 ABG O2 Sat (Measured) ABG O2 Content ABG Base Excess Bj Test O2 Delivery Device Oxygen Flow Rate Vent Mode Vent Rate Mechanical Rate PEEP Pressure Support Vent Sodium 140 Potassium 4.2 Chloride 112 H Carbon Dioxide 23 Anion Gap 5 L BUN 19.7 H Creatinine 1.1 Est GFR (CKD-EPI)AfAm 60.16 Est GFR (CKD-EPI)NonAf 51.91 Random Glucose 107 H Lactic Acid 2.0 Calcium 8.1 L Phosphorus 2.2 L Magnesium 2.1 Total Bilirubin 0.4 AST 36 ALT 26 Alkaline Phosphatase 62 Total Protein 5.2 L Albumin 2.2 L 02/28/19 06:35 WBC RBC Hgb Hct MCV MCH MCHC RDW Plt Count MPV Absolute Neuts (auto) Neutrophils % Neutrophils % (Manual) Band Neutrophils % Lymphocytes % Lymphocytes % (Manual) Monocytes % Monocytes % (Manual) Eosinophils % Eosinophils % (Manual) Basophils % Basophils % (Manual) Myelocytes % (Man) Promyelocytes % (Man) Blast Cells % (Manual) Nucleated RBC % Metamyelocytes Hypochromia Platelet Estimate Polychromasia Poikilocytosis Anisocytosis Microcytosis Macrocytosis Anticoagulation Therapy No Result Required. Puncture Site Left radial ABG pH 7.33 L ABG pCO2 at Pt Temp 39.3 ABG pO2 at Pt Temp 124 H ABG HCO3 19.9 L ABG O2 Sat (Measured) 98.3 H ABG O2 Content 15.6 ABG Base Excess -5.1 L Bj Test Positive O2 Delivery Device Vent Oxygen Flow Rate 60% Vent Mode A/c Vent Rate 16 Mechanical Rate No Result Required. PEEP 5.0 Pressure Support Vent 500 Sodium Potassium Chloride Carbon Dioxide Anion Gap BUN Creatinine Est GFR (CKD-EPI)AfAm Est GFR (CKD-EPI)NonAf Random Glucose Lactic Acid Calcium Phosphorus Magnesium Total Bilirubin AST ALT Alkaline Phosphatase Total Protein Albumin Active Medications Generic Name Dose Route Start Last Admin Trade Name Freq PRN Reason Stop Dose Admin Acetaminophen 600 mg 02/26/19 23:57 02/27/19 00:20 Ofirmev Injection - IVPB 600 mg Q6H PRN Administration FEVER Albuterol Sulfate 1 amp 02/26/19 16:00 02/28/19 07:25 Ventolin 0.083% Nebulizer Soln - NEB Not Given RQ4H BRIE Albuterol/Ipratropium 1 amp 02/26/19 16:00 02/28/19 11:20 Duoneb - NEB 1 amp RQID BRIE Administration Chlorhexidine Gluconate 1 applic 02/26/19 22:00 02/27/19 21:44 Hibiclens For Decolonization - TP 1 applic HS BRIE Administration Docusate Sodium 100 mg 02/26/19 22:00 02/28/19 09:36 Colace Liquid - PO 100 mg BID BRIE Administration Heparin Sodium (Porcine) 5,000 unit 02/26/19 22:00 02/28/19 09:36 Heparin - SQ 5,000 unit BID BRIE Administration Midazolam HCl 100 mg/ Sodium 100 mls @ 1 mls/hr 02/26/19 13:00 02/28/19 06:48 Chloride IVPB 5 mg/hr TITR BRIE 5 mls/hr Titration Protocol 1 MG/HR Sodium Chloride 1,000 mls @ 100 mls/hr 02/26/19 14:30 02/27/19 16:05 Normal Saline - IV 100 mls/hr ASDIR BRIE Administration Ceftriaxone Sodium 1 gm/ 50 mls @ 200 mls/hr 02/26/19 15:00 02/28/19 09:35 Dextrose IVPB 200 mls/hr DAILY BRIE Administration Protocol Fentanyl 500 mcg/ Dextrose 100 mls @ 10 mls/hr 02/26/19 15:15 02/28/19 06:49 IVPB 85 mcg/hr TITR BRIE 17 mls/hr Titration 50 MCG/HR Norepinephrine Bitartrate 8, 500 mls @ 18.75 mls/hr 02/26/19 23:45 02/28/19 12:50 000 mcg/ Dextrose IV 0 mcg/min TITR BRIE 0 mls/hr Titration Protocol 5 MCG/MIN Doxycycline Hyclate 100 mg/ 100 mls @ 100 mls/hr 02/27/19 10:00 02/28/19 09: 39 Dextrose IVPB 100 mls/hr BID BRIE Administration Methylprednisolone Sodium Succinate 60 mg 02/26/19 14:45 02/28/19 06:26 Solu-Medrol - IVPB 60 mg Q8H BRIE Administration Mupirocin 1 applic 02/26/19 22:00 02/28/19 09:37 Bactroban Ointment (For Decolonization) - NS 03/03/19 21:59 1 applic BID BRIE Administration Pantoprazole Sodium 40 mg 02/27/19 10:00 02/28/19 09:35 Protonix Iv IVPUSH 40 mg DAILY BRIE Administration Senna 8.8 mg 02/26/19 22:00 02/27/19 22:26 Senna Oral Solution - PO 8.8 mg HS BRIE Administration ASSESSMENT/PLAN: The patient is a 67 year old female with a significant PMH of COPD on 2 L Oxygen at home, h/o of intubation for COPD, HTN, left sided lung Ca, s/p surgery 2013, right breast Ca, s/p radiation in 2009 BIBA for SOB and cough for few days, was found in ED to be in acute respiratory distress with AMS and was intubated and admitted to ICU for COPD exacerbation . #Acute hypoxic hypercapnic resp failure likley 2/2 COPD exacerbation/ malignancy /h/o Lung Cancer * likely caused by pneumonia, COPD exacerbation, CXR with left base infiltrate, right base effusion * continue Duonebs PRN and BRIE * will continue Solu-medrol 60 mg Q8H * f/u ABG: s/p vent setting adjustement TV 450 PEEP 5 Rate- 14. pH acidotic so increased TV to help blow off CO2. * Flu swab, Legionella ag, * sputum culture * f/u blood/urine culture * ID consulted, will f/u recommendations * Maintain O2 Sat > 88-90% * pt intubated and sedated. patient extubated in the afternoon, but patient continued to be tachycardic and required re-intubation at 5pm. * low tidal volume ventilation 8cc/kg/IBW * levo 10mcg * TSH , B12, folic acid , CT head ID -> Severe sepsis 2/2 PNA - continue Ceftriaxone for CAP coverage considering pt came from home - serology panel pending Cardio -> HTN * hold Norvasc 5 mg daily * ECHO ordered to assess LV function * titrate pressors to maintain MAP > 65 #DVT PPX: * Heparin sq #F/E/N; * NS @ 100 C/hr * Monitor lytes * NPO * monitor urine output/Cr Dispo: continue ICU care Visit type - Emergency Visit Emergency Visit: Yes ED Registration Date: 02/26/19 Care time: The patient presented to the Emergency Department on the above date and was hospitalized for further evaluation of their emergent condition. - New Patient This patient is new to me today: No - Critical Care Critical Care patient: Yes Total Critical Care Time (in minutes): 35 Critical Care Statement: The care of this patient involved high complexity decision making to prevent further life threatening deterioration of the patient 's condition and/or to evaluate & treat vital organ system(s) failure or risk of failure. ATTENDING PHYSICIAN STATEMENT I saw and evaluated the patient. I reviewed the resident's note and discussed the case with the resident. I agree with the resident's findings and plan as documented. SUBJECTIVE: OBJECTIVE: ASSESSMENT AND PLAN:
[2019-02-28] MEDS: SODIUM CHLORIDE 1,000 ML IV SCH (15:08)
--- NOTE | 2019-02-28 15:20 | ECHO ---
Name: EMANUEL MERRITT Exam:Adult Echocardiogram Study Date: 02/28/2019 11:52 AM Age: 68 yrs Reason For Study: ef evaluation Height: 61 in Weight: 140 lb BSA: 1.6 m2 MMode/2D Measurements & Calculations IVSd: 0.81 cm Ao root diam: 2.3 cm LVIDd: 3.2 cm LA dimension: 1.9 cm LVIDs: 2.4 cm LVPWd: 0.98 cm LVPWs: 0.99 cm EDV(Teich): 40.1 ml ESV(Teich): 19.4 ml LVOT diam: 1.8 cm LVLd ap4: 6.1 cm EDV(MOD-sp4): 16.0 ml LVLs ap4: 4.9 cm ESV(MOD-sp4): 5.0 ml SV(MOD-sp4): 11.0 ml Doppler Measurements & Calculations Ao V2 max: 145.4 cm/sec TR max mayte: 357.2 cm/sec Ao max P.5 mmHg TR max P.0 mmHg PA V2 max: 114.7 cm/sec PA max P.3 mmHg Procedure A complete two-dimensional transthoracic echocardiogram was performed (2D, M-mode, Doppler and color flow Doppler). Left Ventricle The left ventricle is normal in size. Left ventricular systolic function is normal. Ejection Fraction = 60- 65%. No regional wall motion abnormalities noted. Right Ventricle The right ventricle is normal size. The right ventricular systolic function is normal. Atria The left atrial size is normal. Right atrial size is normal. Mitral Valve There is mild mitral annular calcification. There is mild mitral regurgitation. Tricuspid Valve The tricuspid valve is normal in structure and function. There is mild to moderate tricuspid regurgit ation. Pulmonary artery systolic pressure is at least 42 mmHg is RA pressure is assumed 3 mmHg. Aortic Valve There is mild aortic sclerosis.;. No aortic regurgitation is present. Pulmonic Valve The pulmonic valve is not well visualized. Great Vessels The aortic root is normal size. Pericardium/Pleura There is no pericardial effusion. Interpretation Summary The left ventricle is normal in size. Left ventricular systolic function is normal. Ejection Fraction = 60-65%. No regional wall motion abnormalities noted. The right ventricular systolic function is normal. The left atrial size is normal. Right atrial size is normal. There is mild mitral annular calcification. There is mild mitral regurgitation. There is mild to moderate tricuspid regurgitation. Pulmonary artery systolic pressure is at least 42 mmHg is RA pressure is assumed 3 mmHg There is mild aortic sclerosis. There is no pericardial effusion. Luis Campos MD 02/28/2019 03:19 PM
[2019-02-28] MEDS: MIDAZOLAM 100 MG in SODIUM CHLORIDE 100 ML IVPB SCH (17:00)
--- NOTE | 2019-02-28 17:06 | PN ---
Progress Note (short form) - Note Progress Note: CALLED FOR STAT INTUBATION SECONDARY TO RESP DISTRESS, H/O LUNG CA. PROPOFOL 100MG IV. DL X1 MAC 3. VCV. ETT 7.5 EASY ATRUAMATIC. +ETCO2 VIA EZCAP SPO2 96% POST INTUBATION. AIRWAY SECURED BY RN AND VENT SETTING PER ICU STAFF/RESP. TECH
[2019-02-28] MEDS: SENNOSIDES 8.8 MG/5 ML BULK BOTTLE PO SCH (21:50)
[2019-02-28] MEDS: CHLORHEXIDINE GLUCONATE 4% CLEANSER FOR DECOLONIZATION TP SCH (22:01)
[2019-03-01] MEDS ORDERED: fentaNYL CITRATE 250 MCG/5 ML VIAL ONE ×2 (00:02→08:14)
[2019-03-01] MEDS: FENTANYL INJECTION 500 MCG in DEXTROSE 5%-WATER - 90 ML IVPB SCH ×2 (00:09→08:17)
[2019-03-01] MEDS: ALBUTEROL SO4 0.083% IH SOL 2.5 MG/3 ML VIAL.NEB. NEB SCH ×5 (00:14→20:25)
[2019-03-01] MEDS: NOREPINEPHRINE BITARTRATE 8,000 MCG in DEXTROSE 5%-WATER - 492 ML IV SCH (01:59)
[2019-03-01] MEDS: methylPREDNISolone NA SUCC 40 MG/1 ML VIAL IVPB SCH ×3 (06:26→22:18)
[2019-03-01] MEDS: SODIUM CHLORIDE 1,000 ML IV SCH ×2 (06:27→17:24)
[2019-03-01] MEDS: ALBUTEROL SO4 2.5/IPRATROPIUM 0.5 INH SOL 3 ML VIAL.NEB. NEB SCH ×4 (08:26→20:25)
--- NOTE | 2019-03-01 08:31 | PN ---
Physical Exam: SUBJECTIVE: Patient seen and examined in ICU. Spoke with ICU team regarding overall care. Yesterday she was extubated but was found to have respiratory distress despite more conservative measures and was reintubated emergently. No complications and I am told she was doing well overnight. Slight sinus bradycardia noted on the monitor in the high 40s without associated hypotension. Medications reviewed. Patient remains critically ill in the ICU requiring complex care team , ventillatory support, and multidisciplinary approach. 45 minutes critical care time spent. Intubated and sedated so no ROS could be completed OBJECTIVE: Vital Signs Period Temp Pulse Resp BP Sys/Sawyer Pulse Ox Last 24 Hr 97.7 F-98.4 F 46-131 10-16 60-154/49-88 92-99 VS, labs, imaging reviewed. All diagnostics independently interpreted unless indicated Mild distress RASS 3 intubated and sedated in ICU; vent settings per records [place] AT EOMI; ET tube in place Lines in place NT ND +BS Regular to slightly slow rate, no new mgr Lungs with vent-associated breath sounds, w/ sym exp, some coarse sounds noted CN2-12 wnl, normal pupils, normal reflexes, withdrawals to pain Not agitated, cannot fully assess psych No rashes or skin breakdown noted Trachea midline, no cassia LN, neck is supple, no goiters Laboratory Results - last 24 hr 02/28/19 02/28/19 06:00 06:00 Neutrophils % (Manual) 85.0 H Band Neutrophils % 10.0 Lymphocytes % (Manual) 1.0 L Monocytes % (Manual) 3 L Eosinophils % (Manual) 0.0 Basophils % (Manual) 0.0 Myelocytes % (Man) 0 D Promyelocytes % (Man) 0 Blast Cells % (Manual) 0 Metamyelocytes 0 D Hypochromia 0 Platelet Estimate Normal Polychromasia 0 Poikilocytosis 1+ Anisocytosis 1+ Microcytosis 1+ Macrocytosis 0 Hep A IgM Ab Confirm Negative Hep Bs Antigen Negative Hep B Core IgM Ab Negative Hepatitis C Ab (EIA) <0.1 Active Medications Generic Name Dose Route Start Last Admin Trade Name Freq PRN Reason Stop Dose Admin Acetaminophen 600 mg 02/26/19 23:57 02/27/19 00:20 Ofirmev Injection - IVPB 600 mg Q6H PRN Administration FEVER Albuterol Sulfate 1 amp 02/26/19 16:00 03/01/19 00:14 Ventolin 0.083% Nebulizer Soln - NEB 1 amp RQ4H BRIE Administration Albuterol/Ipratropium 1 amp 02/26/19 16:00 02/28/19 20:10 Duoneb - NEB 1 amp RQID BRIE Administration Chlorhexidine Gluconate 1 applic 02/26/19 22:00 02/28/19 22:01 Hibiclens For Decolonization - TP 1 applic HS BRIE Administration Docusate Sodium 100 mg 02/26/19 22:00 02/28/19 21:50 Colace Liquid - PO 100 mg BID BRIE Administration Heparin Sodium (Porcine) 5,000 unit 02/26/19 22:00 02/28/19 22:08 Heparin - SQ 5,000 unit BID BRIE Administration Midazolam HCl 100 mg/ Sodium 100 mls @ 1 mls/hr 02/26/19 13:00 02/28/19 17:00 Chloride IVPB 5 mg/hr TITR BRIE 5 mls/hr Administration Protocol 1 MG/HR Sodium Chloride 1,000 mls @ 100 mls/hr 02/26/19 14:30 03/01/19 06:27 Normal Saline - IV 100 mls/hr ASDIR BRIE Administration Ceftriaxone Sodium 1 gm/ 50 mls @ 200 mls/hr 02/26/19 15:00 02/28/19 09:35 Dextrose IVPB 200 mls/hr DAILY BRIE Administration Protocol Fentanyl 500 mcg/ Dextrose 100 mls @ 10 mls/hr 02/26/19 15:15 03/01/19 08:17 IVPB 75 mcg/hr TITR BRIE 15 mls/hr Administration 50 MCG/HR Norepinephrine Bitartrate 8, 500 mls @ 18.75 mls/hr 02/26/19 23:45 03/01/19 08:19 000 mcg/ Dextrose IV 1 mcg/min TITR BRIE 3.75 mls/hr Titration Protocol 5 MCG/MIN Doxycycline Hyclate 100 mg/ 100 mls @ 100 mls/hr 02/27/19 10:00 02/28/19 22: 00 Dextrose IVPB 100 mls/hr BID BRIE Administration Methylprednisolone Sodium Succinate 60 mg 02/26/19 14:45 03/01/19 06:26 Solu-Medrol - IVPB 60 mg Q8H BRIE Administration Mupirocin 1 applic 02/26/19 22:00 02/28/19 22:01 Bactroban Ointment (For Decolonization) - NS 03/03/19 21:59 1 applic BID BRIE Administration Pantoprazole Sodium 40 mg 02/27/19 10:00 02/28/19 09:35 Protonix Iv IVPUSH 40 mg DAILY BRIE Administration Senna 8.8 mg 02/26/19 22:00 02/28/19 21:50 Senna Oral Solution - PO 8.8 mg HS BRIE Administration Pneumococcal Ag presumptive positive Echo with normal LVEF with no regional wmas, RV function normal, LA size normal , mild MR, mild to mod RT, PAP at least 42 mmHg Telemetry reviewed ASSESSMENT/PLAN: Patient was emergently re-intubated and remains in the ICU critically ill due to her acute on chronic respiratory failure and associated issues. Appreciate excellent care rendered by subspecialty team. Symphony will continue to follow. Problems include: -Acute on chronic mixed respiratory failure requiring mechanical ventillation -Septic Shock secondary to pneumococcal pneumonia, weaned from NE ggt, monitor -Sinus Bradycardia, consider CV consult but will first address with ICU team. No BB, etc -Elevated BNP -Hx Lung cancer -Hx COPD on home O2, PFTs unknown -Septic shock vs. hypotension 2/2 induction in the setting of respiratory failure-on broad spectrum and w/o fever, pending ID consult -Hypoalbuminemia -HypooMg -HyperK -Hx Gastric CA Given multiple medical comorbidities and extubation failure can consider palliative team consult tomorrow. Visit type - Emergency Visit Emergency Visit: Yes ED Registration Date: 02/26/19 Care time: The patient presented to the Emergency Department on the above date and was hospitalized for further evaluation of their emergent condition. - New Patient This patient is new to me today: No - Critical Care Critical Care patient: Yes Total Critical Care Time (in minutes): 45 Critical Care Statement: The care of this patient involved high complexity decision making to prevent further life threatening deterioration of the patient 's condition and/or to evaluate & treat vital organ system(s) failure or risk of failure.
[2019-03-01 09:07] LABS: ARTERIAL BLD GAS O2 SATURATION 96.7 % (95-98); ARTERIAL BLOOD GAS BASE EXCESS -5.5 meq/l (-2-2); ARTERIAL BLOOD GAS PCO2 34.2 mmHg (35-45); ARTERIAL BLOOD GAS PO2 91.6 mmHg (80-100); ARTERIAL BLOOD GAS pH 7.36 (7.35-7.45)
[2019-03-01 09:08] LABS: ALLENS TEST POSITIVE
[2019-03-01] MEDS ORDERED: DEXTROSE 5%-WATER - 50 ML IVPB ONE (09:35)
[2019-03-01] MEDS ORDERED: cefTRIAXone SODIUM 1 GM VIAL ONE (09:35)
[2019-03-01] MEDS ORDERED: PT OWN MED DRAWER 7, Y5N ONE ×2 (09:35→21:29)
[2019-03-01] MEDS: CEFTRIAXONE 1 GM in DEXTROSE 5%-WATER - 50 ML IVPB SCH (09:37)
[2019-03-01] MEDS: PANTOPRAZOLE SODIUM 40 MG VIAL IVPUSH SCH (09:38)
[2019-03-01] MEDS: DOXYCYCLINE INJECTION 100 MG in DEXTROSE 5%-WATER - 100 ML IVPB SCH ×2 (09:38→21:31)
[2019-03-01] MEDS: DOCUSATE NA 100 MG/10 ML UNIT-DOSE CUPS PO SCH ×3 (09:38→21:09)
[2019-03-01] MEDS: HEPARIN NA (PORCINE) 5,000 UNITS/ML 1ML VIAL SQ SCH ×2 (09:38→21:30)
[2019-03-01] MEDS: MUPIROCIN 2% TOPICAL OINTMENT FOR DECOLONIZATION NS SCH ×2 (09:39→21:30)
[2019-03-01 09:52] LABS: BASO % 0.2 % (0-2.0); HEMATOCRIT 28.4 % (32.4-45.2); LYMPH % 1.2 % (8-40); MCH 25.8 pg (25.7-33.7); MCHC 31.6 g/dl (32.0-36.0); MEAN CELL VOLUME 81.6 fl (80-96); MEAN PLT VOLUME 9.8 fl (7.5-11.1); MONO % 4.3 % (3.8-10.2); NEUT % 94.3 % (42.8-82.8); PLATELET COUNT 165 K/MM3 (134-434); RBC 3.48 M/mm3 (3.60-5.2); RDW 16.5 % (11.6-15.6); WHITE BLOOD COUNT 18.6 K/mm3 (4.0-10.0)
[2019-03-01 10:29] LABS: ALBUMIN 2.2 g/dl (3.4-5.0); BILIRUBIN,TOTAL 0.2 mg/dL (0.2-1); BLOOD UREA NITROGEN 23.4 mg/dL (7-18); MAGNESIUM 2.2 mg/dL (1.8-2.4); PHOSPHOROUS 2.5 mg/dL (2.5-4.9); TOT PROT 5.2 g/dl (6.4-8.2)
--- NOTE | 2019-03-01 11:39 | PN ---
Teaching Attending Note Name of Resident: Jack Garcia ATTENDING PHYSICIAN STATEMENT I saw and evaluated the patient. I reviewed the resident's note and discussed the case with the resident. I agree with the resident's findings and plan as documented. SUBJECTIVE: Pt seen and examined in the ICU. Reintubated yesterday for respiratory failure and tachycardia. CXR unchanged. Saturating well on assist control 40% FiO2. On lower dose levophed. OBJECTIVE: Vital Signs Period Temp Pulse Resp BP Sys/Sawyer Pulse Ox Last 24 Hr 97.5 F-98.4 F 46-131 10-16 60-154/49-88 92-100 Intake & Output 02/26/19 02/27/19 02/28/19 03/01/19 23:59 23:59 23:59 23:59 Intake Total 2619 6294 1181 1647.5 Output Total 350 2200 900 650 Balance 2269 4094 281 997.5 Weight 63.503 kg 52.2 kg 54.431 kg 55.066 kg Gen: intubated, sedated Heart: RRR Lung: decreased breath sounds at the bases Abd: soft, nontender Ext: no edema CBC, BMP 03/01/19 09:20 03/01/19 09:20 Active Medications Acetaminophen (Ofirmev Injection -) 600 mg IVPB Q6H PRN PRN Reason: FEVER Last Admin: 02/27/19 00:20 Dose: 600 mg Albuterol Sulfate (Ventolin 0.083% Nebulizer Soln -) 1 amp NEB RQ4H [facility] Last Admin: 03/01/19 00:14 Dose: 1 amp Albuterol/Ipratropium (Duoneb -) 1 amp NEB RQID [facility] Last Admin: 03/01/19 08:26 Dose: 1 amp Chlorhexidine Gluconate (Hibiclens For Decolonization -) 1 applic TP HS [facility] Last Admin: 02/28/19 22:01 Dose: 1 applic Docusate Sodium (Colace Liquid -) 100 mg PO BID [facility] Last Admin: 03/01/19 09:38 Dose: Not Given Heparin Sodium (Porcine) (Heparin -) 5,000 unit SQ BID [facility] Last Admin: 03/01/19 09:38 Dose: 5,000 unit Sodium Chloride (Normal Saline -) 1,000 mls @ 100 mls/hr IV ASDIR [facility] Last Admin: 03/01/19 06:27 Dose: 100 mls/hr Ceftriaxone Sodium 1 gm/ (Dextrose) 50 mls @ 200 mls/hr IVPB DAILY [facility]; Protocol Last Admin: 03/01/19 09:37 Dose: 200 mls/hr Norepinephrine Bitartrate 8, (000 mcg/ Dextrose) 500 mls @ 18.75 mls/hr IV TITR BRIE; Protocol Last Titration: 03/01/19 10:00 Dose: 0 mcg/min, 0 mls/hr Doxycycline Hyclate 100 mg/ (Dextrose) 100 mls @ 100 mls/hr IVPB BID BRIE Last Admin: 03/01/19 09:38 Dose: 100 mls/hr Methylprednisolone Sodium Succinate (Solu-Medrol -) 60 mg IVPB Q8H [facility] Last Admin: 03/01/19 06:26 Dose: 60 mg Mupirocin (Bactroban Ointment (For Decolonization) -) 1 applic NS BID [facility] Stop: 03/03/19 21:59 Last Admin: 03/01/19 09:39 Dose: 1 applic Pantoprazole Sodium (Protonix Iv) 40 mg IVPUSH DAILY [facility] Last Admin: 03/01/19 09:38 Dose: 40 mg Senna (Senna Oral Solution -) 8.8 mg PO HS [facility] Last Admin: 02/28/19 21:50 Dose: 8.8 mg ASSESSMENT AND PLAN: Acute on Chronic Hypoxic and Hypercapneic Respiratory Failure Pneumonia Septic Shock Lactic Acidosis Acute COPD Exacerbation h/o Lung Ca h/o Breast Ca HTN - continue antibiotics - f/u cultures - IVF - titrate pressors to maintain MAP >65 - monitor urine output, creatinine - continue medrol at current dose - inhaled bronchodilators - O2 to keep Spo2 >90% - daily sedation vacations to assess mental status - spontaneous breathing trials as tolerated when mental status improved - start enteral feeds - DVT/GI prophylaxis - continue ICU monitoring critical care time spent in reviewing chart, evaluating patient and formulating plan 35 min
[2019-03-01 12:01] LABS: ANISOCYTOSIS 1+; MACROCYTOSIS 0; PLATELET ESTIMATE DECREASED
--- NOTE | 2019-03-01 12:42 | PN ---
Physical Exam: SUBJECTIVE: Patient seen and examined in ICU. Intubated and sedated. Spoke with regarding patients status. Patient was reintubated yesterday due to patient found to be tachycardic, tachypneic, in a tripod position. OBJECTIVE: Vital Signs Period Temp Pulse Resp BP Sys/Sawyer Pulse Ox Last 24 Hr 97.5 F-98.4 F 46-131 15-16 60-154/49-88 92-100 GENERAL: The patient is intubated and sedated. EYES: rt pupil miosis, left remains reactive to light. NECK: Trachea midline, full range of motion, supple. LUNGS: Breath sounds equal, clear to auscultation bilaterally, no wheezes, no crackles, no accessory muscle use. HEART: Regular rate and rhythm, S1, S2 without murmur, rub or gallop. ABDOMEN: Soft, nondistended, normoactive bowel sounds, EXTREMITIES: warm, well-perfused, no edema. NEUROLOGICAL: sedated PSYCH: sedated SKIN: Warm, dry, no rashes or lesions noted Laboratory Results - last 24 hr 02/28/19 02/28/19 03/01/19 06:00 06:00 08:45 WBC RBC Hgb Hct MCV MCH MCHC RDW Plt Count MPV Absolute Neuts (auto) Neutrophils % Neutrophils % (Manual) 85.0 H Band Neutrophils % 10.0 Lymphocytes % Lymphocytes % (Manual) 1.0 L Monocytes % Monocytes % (Manual) 3 L Eosinophils % Eosinophils % (Manual) 0.0 Basophils % Basophils % (Manual) 0.0 Myelocytes % (Man) 0 D Promyelocytes % (Man) 0 Blast Cells % (Manual) 0 Nucleated RBC % Metamyelocytes 0 D Hypochromia 0 Platelet Estimate Normal Polychromasia 0 Poikilocytosis 1+ Anisocytosis 1+ Microcytosis 1+ Macrocytosis 0 [place] Cells Anticoagulation Therapy No Result Required. Puncture Site Right radial ABG pH 7.36 ABG pCO2 at Pt Temp 34.2 L ABG pO2 at Pt Temp 91.6 ABG HCO3 18.8 L ABG O2 Sat (Measured) 96.7 ABG O2 Content 12.7 ABG Base Excess -5.5 L Bj Test Positive O2 Delivery Device No Result Required. Oxygen Flow Rate 40 Vent Mode No Result Required. Vent Rate 5 Mechanical Rate No Result Required. Pressure Support Vent No Result Required. Sodium Potassium Chloride Carbon Dioxide Anion Gap BUN Creatinine Est GFR (CKD-EPI)AfAm Est GFR (CKD-EPI)NonAf Random Glucose Calcium Phosphorus Magnesium Total Bilirubin AST ALT Alkaline Phosphatase Total Protein Albumin Hep A IgM Ab Confirm Negative Hep Bs Antigen Negative Hep B Core IgM Ab Negative Hepatitis C Ab (EIA) <0.1 03/01/19 03/01/19 09:20 09:20 WBC 18.6 H RBC 3.48 L Hgb 9.0 L Hct 28.4 L MCV 81.6 MCH 25.8 MCHC 31.6 L RDW 16.5 H Plt Count 165 MPV 9.8 D Absolute Neuts (auto) 17.6 H Neutrophils % 94.3 H Neutrophils % (Manual) 95.0 H Band Neutrophils % 0.0 Lymphocytes % 1.2 L Lymphocytes % (Manual) 2.0 L D Monocytes % 4.3 Monocytes % (Manual) 3 L Eosinophils % 0.0 Eosinophils % (Manual) 0.0 Basophils % 0.2 Basophils % (Manual) 0.0 Myelocytes % (Man) 0 Promyelocytes % (Man) 0 Blast Cells % (Manual) 0 Nucleated RBC % 0 Metamyelocytes 0 Hypochromia 0 Platelet Estimate Decreased Polychromasia 0 Poikilocytosis 0 Anisocytosis 1+ Microcytosis 0 Macrocytosis 0 [place] Cells 1+ Anticoagulation Therapy Puncture Site ABG pH ABG pCO2 at Pt Temp ABG pO2 at Pt Temp ABG HCO3 ABG O2 Sat (Measured) ABG O2 Content ABG Base Excess Bj Test O2 Delivery Device Oxygen Flow Rate Vent Mode Vent Rate Mechanical Rate Pressure Support Vent Sodium 145 Potassium 4.0 Chloride 117 H Carbon Dioxide 20 L Anion Gap 8 BUN 23.4 H Creatinine 1.0 Est GFR (CKD-EPI)AfAm 67.51 Est GFR (CKD-EPI)NonAf 58.25 Random Glucose 94 Calcium 8.0 L Phosphorus 2.5 Magnesium 2.2 Total Bilirubin 0.2 AST 19 ALT 24 Alkaline Phosphatase 66 Total Protein 5.2 L Albumin 2.2 L Hep A IgM Ab Confirm Hep Bs Antigen Hep B Core IgM Ab Hepatitis C Ab (EIA) Active Medications Generic Name Dose Route Start Last Admin Trade Name Freq PRN Reason Stop Dose Admin Acetaminophen 600 mg 02/26/19 23:57 02/27/19 00:20 Ofirmev Injection - IVPB 600 mg Q6H PRN Administration FEVER Albuterol Sulfate 1 amp 02/26/19 16:00 03/01/19 00:14 Ventolin 0.083% Nebulizer Soln - NEB 1 amp RQ4H BRIE Administration Albuterol/Ipratropium 1 amp 02/26/19 16:00 03/01/19 12:25 Duoneb - NEB 1 amp RQID BRIE Administration Chlorhexidine Gluconate 1 applic 02/26/19 22:00 02/28/19 22:01 Hibiclens For Decolonization - TP 1 applic HS BRIE Administration Docusate Sodium 100 mg 02/26/19 22:00 03/01/19 09:38 Colace Liquid - PO Not Given BID BRIE Heparin Sodium (Porcine) 5,000 unit 02/26/19 22:00 03/01/19 09:38 Heparin - SQ 5,000 unit BID BRIE Administration Sodium Chloride 1,000 mls @ 100 mls/hr 02/26/19 14:30 03/01/19 06:27 Normal Saline - IV 100 mls/hr ASDIR BRIE Administration Ceftriaxone Sodium 1 gm/ 50 mls @ 200 mls/hr 02/26/19 15:00 03/01/19 09:37 Dextrose IVPB 200 mls/hr DAILY BRIE Administration Protocol Norepinephrine Bitartrate 8, 500 mls @ 18.75 mls/hr 02/26/19 23:45 03/01/19 10:00 000 mcg/ Dextrose IV 0 mcg/min TITR BRIE 0 mls/hr Titration Protocol 5 MCG/MIN Doxycycline Hyclate 100 mg/ 100 mls @ 100 mls/hr 02/27/19 10:00 03/01/19 09: 38 Dextrose IVPB 100 mls/hr BID BRIE Administration Methylprednisolone Sodium Succinate 60 mg 02/26/19 14:45 03/01/19 06:26 Solu-Medrol - IVPB 60 mg Q8H BRIE Administration Mupirocin 1 applic 02/26/19 22:00 03/01/19 09:39 Bactroban Ointment (For Decolonization) - NS 03/03/19 21:59 1 applic BID BRIE Administration Pantoprazole Sodium 40 mg 02/27/19 10:00 03/01/19 09:38 Protonix Iv IVPUSH 40 mg DAILY BRIE Administration Senna 8.8 mg 02/26/19 22:00 02/28/19 21:50 Senna Oral Solution - PO 8.8 mg HS BRIE Administration ASSESSMENT/PLAN: The patient is a 67 year old female with a significant PMH of COPD on 2 L Oxygen at home, h/o of intubation for COPD, HTN, left sided lung Ca, s/p surgery 2013, right breast Ca, s/p radiation in 2009 BIBA for SOB and cough for few days, was found in ED to be in acute respiratory distress with AMS and was intubated and admitted to ICU for COPD exacerbation . #Acute hypoxic hypercapnic resp failure likley 2/ COPD exacerbation/ malignancy /h/o Lung Cancer * likely caused by pneumonia, COPD exacerbation, CXR with left base infiltrate, right base effusion * continue Duonebs PRN and BRIE * continue Solu-medrol 60 mg Q8H * f/u ABG: s/p reintubation showing 7.36, 34.2, 18.8 * Flu swab negative for influenza, Legionella ag negative * sputum culture negative * f/u blood/urine cultures negative. * continue NS @ 100 CC/hr * ID consulted, will f/u recommendations * Maintain O2 Sat > 88-90% * maintain MAP > 65 * pt intubated and sedated, attempted to wean off sedation today * low tidal volume ventilation 8cc/kg/IBW * off levo after rounds today, B12 elevated, MCV >100. * If need to use sedative, propofol is preferred due to its short acting effects. ID -> Septic shock / PNA - continue Ceftriaxone/doxycycline for CAP coverage - UA growing strep PNA which will be covered by the ceftriaxone. - serology panel Hep A, B, C, influenza negative, the rest is pending. Cardio -> HTN * hold Norvasc 5 mg daily, pt cannot tolerate PO meds. 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 #DVT PPX: * Heparin sq #F/E/N/G/I * NS @ 100 CC/hr * Monitor lytes and replete prn * NPO * Protonix IVP 40 daily Dispo: We will continue to follow the patient. Thank you for this consultative opportunity. Visit type - Emergency Visit Emergency Visit: Yes ED Registration Date: 02/26/19 Care time: The patient presented to the Emergency Department on the above date and was hospitalized for further evaluation of their emergent condition. - New Patient This patient is new to me today: Yes Date on this admission: 03/01/19 - Critical Care Critical Care patient: Yes Total Critical Care Time (in minutes): 40 Critical Care Statement: The care of this patient involved high complexity decision making to prevent further life threatening deterioration of the patient 's condition and/or to evaluate & treat vital organ system(s) failure or risk of failure. - Discharge Referral Referred to [facility] No
[2019-03-01] MEDS ORDERED: PROPOFOL 1,000,000 MCG/100 ML VIAL IVPB SCH (17:00)
[2019-03-01] MEDS: SENNOSIDES 8.8 MG/5 ML BULK BOTTLE PO SCH ×2 (19:52→21:09)
[2019-03-01] MEDS: CHLORHEXIDINE GLUCONATE 4% CLEANSER FOR DECOLONIZATION TP SCH (21:30)
--- NOTE | 2019-03-01 22:51 | PN ---
Progress Note (short form) - Note Progress Note: -pt became agitated overnight. propofol drip re-started.
[2019-03-02 06:04] LABS: ARTERIAL BLOOD GAS BASE EXCESS -5.8 meq/l (-2-2); ARTERIAL BLOOD GAS PCO2 29.8 mmHg (35-45); ARTERIAL BLOOD GAS PO2 106 mmHg (80-100)
[2019-03-02] MEDS: methylPREDNISolone NA SUCC 40 MG/1 ML VIAL IVPB SCH ×3 (06:07→22:54)
[2019-03-02 06:10] LABS: ALLENS TEST POSITIVE
[2019-03-02 07:33] LABS: ALBUMIN 2.1 g/dl (3.4-5.0); BASO % 0.5 % (0-2.0); BILIRUBIN,TOTAL 0.3 mg/dL (0.2-1); BLOOD UREA NITROGEN 31.5 mg/dL (7-18); CALCIUM 8.3 mg/dL (8.5-10.1); CREATININE 1.1 mg/dL (0.55-1.3); HEMATOCRIT 25.7 % (32.4-45.2); HEMOGLOBIN 8.4 GM/dL (10.7-15.3); LYMPH % 2.2 % (8-40); MAGNESIUM 2.3 mg/dL (1.8-2.4); MCH 26.5 pg (25.7-33.7); MCHC 32.8 g/dl (32.0-36.0); MEAN CELL VOLUME 80.8 fl (80-96); MEAN PLT VOLUME 9.3 fl (7.5-11.1); MONO % 4.3 % (3.8-10.2); PHOSPHOROUS 2.8 mg/dL (2.5-4.9); PLATELET COUNT 154 K/MM3 (134-434); POTASSIUM 3.9 mmol/L (3.5-5.1); RBC 3.19 M/mm3 (3.60-5.2); RDW 16.8 % (11.6-15.6); TOT PROT 4.9 g/dl (6.4-8.2); WHITE BLOOD COUNT 13.3 K/mm3 (4.0-10.0)
[2019-03-02] MEDS: ALBUTEROL SO4 2.5/IPRATROPIUM 0.5 INH SOL 3 ML VIAL.NEB. NEB SCH ×4 (08:07→21:00)
[2019-03-02] MEDS: ALBUTEROL SO4 0.083% IH SOL 2.5 MG/3 ML VIAL.NEB. NEB SCH (08:08)
[2019-03-02] MEDS ORDERED: DEXTROSE 5%-WATER - 50 ML IVPB ONE (09:25)
[2019-03-02] MEDS ORDERED: cefTRIAXone SODIUM 1 GM VIAL ONE (09:25)
[2019-03-02] MEDS: HEPARIN NA (PORCINE) 5,000 UNITS/ML 1ML VIAL SQ SCH ×2 (09:29→21:33)
[2019-03-02] MEDS: MUPIROCIN 2% TOPICAL OINTMENT FOR DECOLONIZATION NS SCH ×2 (09:29→21:37)
[2019-03-02] MEDS: DOXYCYCLINE INJECTION 100 MG in DEXTROSE 5%-WATER - 100 ML IVPB SCH ×2 (09:30→21:33)
[2019-03-02] MEDS: PANTOPRAZOLE SODIUM 40 MG VIAL IVPUSH SCH ×2 (09:30→21:32)
[2019-03-02] MEDS: CEFTRIAXONE 1 GM in DEXTROSE 5%-WATER - 50 ML IVPB SCH (09:30)
--- NOTE | 2019-03-02 09:31 | PN ---
Progress Note (short form) - Note Progress Note: HPI: Intubated, no events noted. no telemetry events PE: Gen: intubated, awake Heart: RRR Lung: decreased breath sounds at the bases Abd: soft, nontender Ext: no edema CBC, BMP 03/02/19 13:05 03/02/19 06:10 Microbiology 02/26/19 12:00 Blood - Peripheral Venous Blood Culture - Preliminary NO GROWTH OBTAINED AFTER 96 HOURS, INCUBATION TO CONTINUE FOR 1 DAYS. 02/26/19 12:00 Blood - Peripheral Venous Blood Culture - Preliminary NO GROWTH OBTAINED AFTER 96 HOURS, INCUBATION TO CONTINUE FOR 1 DAYS. 02/27/19 00:20 Sputum - Endotrachea Suction/Ventilator Gram Stain - Final 02/27/19 00:20 Sputum - Endotrachea Suction/Ventilator Sputum Culture - Final NORMAL RESPIRATORY ABBIE 02/27/19 11:00 Urine For Antigen Detection Legionella Antigen - Final 02/27/19 11:00 Urine For Antigen Detection Streptococcus pneumoniae Antigen (M - Final 02/26/19 13:40 Urine - Urine - Catheterized Urine Culture - Final NO GROWTH OBTAINED Active Medications Acetaminophen (Ofirmev Injection -) 600 mg IVPB Q6H PRN PRN Reason: FEVER Last Admin: 02/27/19 00:20 Dose: 600 mg Albuterol/Ipratropium (Duoneb -) 1 amp NEB RQID [facility] Last Admin: 03/02/19 17:04 Dose: 1 amp Chlorhexidine Gluconate (Hibiclens For Decolonization -) 1 applic TP HS [facility] Last Admin: 03/01/19 21:30 Dose: 1 applic Heparin Sodium (Porcine) (Heparin -) 5,000 unit SQ BID [facility] Last Admin: 03/02/19 09:29 Dose: 5,000 unit Ceftriaxone Sodium 1 gm/ (Dextrose) 50 mls @ 200 mls/hr IVPB DAILY [facility]; Protocol Last Admin: 03/02/19 09:30 Dose: 200 mls/hr Doxycycline Hyclate 100 mg/ (Dextrose) 100 mls @ 100 mls/hr IVPB BID [facility] Last Admin: 03/02/19 09:30 Dose: 100 mls/hr Propofol (Diprivan -) 1,000,000 mcg in 100 mls @ 1.683 mls/hr IVPB TITR [facility]; Protocol Last Titration: 03/02/19 17:45 Dose: 30 mcg/kg/min, 10.1 mls/hr Methylprednisolone Sodium Succinate (Solu-Medrol -) 60 mg IVPB Q8H [facility] Last Admin: 03/02/19 13:46 Dose: 60 mg Mupirocin (Bactroban Ointment (For Decolonization) -) 1 applic NS BID [facility] Stop: 03/03/19 21:59 Last Admin: 03/02/19 09:29 Dose: 1 applic Pantoprazole Sodium (Protonix Iv) 40 mg IVPUSH BID [facility] Last Admin: 03/02/19 09:30 Dose: 40 mg A/P: Acute on chronic hypoxic hypercapenic respiratory failure Septic shock 2/2 to pneumonia COPD Exacerbation Lactic acidosis Acute anemia --Off pressors; continue to monitor hemodynamics --Sedation vacation and CPAP trials per ICU team --Can return to Precedex vs. propofol if fails --Septic shock resolving: continue Rocephin and Doxy per ID --Continue Medrol 60mg q8h per ICU --Anemia workup ordered; changed Protonix to BID --Stool occult to be obtained --Monitor CBC --If workup negative would feed Case discussed with ICU team and Dr. Jose C Conway, DO - IM PGY-3 <Wilber Conway - Last Filed: 03/02/19 20:55> - Note Progress Note: Seen and examined, agree with all indicated resident problem list, history, and physical exam unless indicated. I independently verified all lab results, imaging, historical information, and physical exam findings. Subjectively, the patient remains intubated and sedated in the intensive care unit. She remains clinically unstable, she remains critically ill requiring mechanical ventilatory support for life-sustaining measures. Pulmonary critical care following. Noted drop in hemoglobin, this is been nearly 4 g since admission, we will go ahead and we will continue to trend this, check her anemia studies, and strongly consider consulting gastroenterology given her history of gastric cancer. Could not obtain review of systems secondary to underlying clinical condition. VS, labs, imaging reviewed. All diagnostics independently interpreted unless indicated Mild distress RASS 3 intubated and sedated in ICU; vent settings per records NC AT EOMI; ET tube in place Lines in place NT ND +BS Regular to slightly slow rate, no new mgr Lungs with vent-associated breath sounds, w/ sym exp, some coarse sounds noted CN2-12 wnl, normal pupils, normal reflexes, withdrawals to pain Not agitated, cannot fully assess psych No rashes or skin breakdown noted Trachea midline, no cassia LN, neck is supple, no goiters -Acute on chronic mixed respiratory failure requiring mechanical ventillation -Septic Shock secondary to pneumococcal pneumonia, weaned from NE ggt, monitor -Sinus Bradycardia, consider CV consult but will first address with ICU team. No BB, etc -Elevated BNP -Hx Lung cancer -Hx COPD on home O2, PFTs unknown -Septic shock vs. hypotension 2/2 induction in the setting of respiratory failure-on broad spectrum and w/o fever, pending ID consult -Hypoalbuminemia -HypooMg -HyperK -Hx Gastric CA Given multiple medical comorbidities and extubation failure can consider palliative team consult tomorrow. <Eric Woodall - Last Filed: 03/05/19 10:16>
[2019-03-02] MEDS ORDERED: PROPOFOL 1,000,000 MCG/100 ML VIAL ONE ×2 (09:34→16:12)
[2019-03-02 10:26] LABS: ANISOCYTOSIS 1+; MACROCYTOSIS 0; PLATELET ESTIMATE DECREASED
--- NOTE | 2019-03-02 11:51 | PN ---
Teaching Attending Note Name of Resident: Leonard Ramirez ATTENDING PHYSICIAN STATEMENT I saw and evaluated the patient. I reviewed the resident's note and discussed the case with the resident. I agree with the resident's findings and plan as documented. SUBJECTIVE: Pt seen and examined in the ICU. Remains intubated, awake off sedation. Placed on CPAP/PS but with increased respiratory effort, placed on SIMV. OBJECTIVE: Vital Signs Period Temp Pulse Resp BP Sys/Sawyer Pulse Ox Last 24 Hr 97.4 F-98.8 F 44-128 16-16 105-166/58-94 95-100 Intake & Output 02/27/19 02/28/19 03/01/19 03/02/19 23:59 23:59 23:59 23:59 Intake Total 6294 1181 2938.5 1310 Output Total 2200 900 1250 275 Balance 4094 281 1688.5 1035 Weight 52.2 kg 54.431 kg 55.066 kg 56.109 kg Gen: intubated, awake Heart: RRR Lung: decreased breath sounds at the bases Abd: soft, nontender Ext: no edema CBC, BMP 03/02/19 06:10 03/02/19 06:10 Active Medications Acetaminophen (Ofirmev Injection -) 600 mg IVPB Q6H PRN PRN Reason: FEVER Last Admin: 02/27/19 00:20 Dose: 600 mg Albuterol/Ipratropium (Duoneb -) 1 amp NEB RQID [facility] Last Admin: 03/02/19 08:07 Dose: 1 amp Chlorhexidine Gluconate (Hibiclens For Decolonization -) 1 applic TP HS [facility] Last Admin: 03/01/19 21:30 Dose: 1 applic Heparin Sodium (Porcine) (Heparin -) 5,000 unit SQ BID [facility] Last Admin: 03/02/19 09:29 Dose: 5,000 unit Ceftriaxone Sodium 1 gm/ (Dextrose) 50 mls @ 200 mls/hr IVPB DAILY [facility]; Protocol Last Admin: 03/02/19 09:30 Dose: 200 mls/hr Doxycycline Hyclate 100 mg/ (Dextrose) 100 mls @ 100 mls/hr IVPB BID [facility] Last Admin: 03/02/19 09:30 Dose: 100 mls/hr Dexmedetomidine HCl 200 mcg/ (Sodium Chloride) 50 mls @ 2.8 mls/hr IVPB TITR BRIE Methylprednisolone Sodium Succinate (Solu-Medrol -) 60 mg IVPB Q8H [facility] Last Admin: 03/02/19 06:07 Dose: 60 mg Mupirocin (Bactroban Ointment (For Decolonization) -) 1 applic NS BID [facility] Stop: 03/03/19 21:59 Last Admin: 03/02/19 09:29 Dose: 1 applic Pantoprazole Sodium (Protonix Iv) 40 mg IVPUSH BID [facility] Last Admin: 03/02/19 09:30 Dose: 40 mg ASSESSMENT AND PLAN: Acute on Chronic Hypoxic and Hypercapneic Respiratory Failure Pneumonia Septic Shock Lactic Acidosis Acute COPD Exacerbation h/o Lung Ca h/o Breast Ca HTN - continue antibiotics - f/u cultures - IVF - off pressors, maintain MAP >65 - monitor urine output, creatinine - continue medrol at current dose - inhaled bronchodilators - O2 to keep Spo2 >90% - daily sedation vacations to assess mental status - spontaneous breathing trials as tolerated when mental status improved - start enteral feeds - DVT/GI prophylaxis - continue ICU monitoring critical care time spent in reviewing chart, evaluating patient and formulating plan 35 min
[2019-03-02] MEDS ORDERED: DEXMEDETOMIDINE HCL 200 MCG in SODIUM CHLORIDE 48 ML IVPB SCH (12:00)
--- NOTE | 2019-03-02 12:59 | PN ---
Physical Exam: SUBJECTIVE: Patient seen and examined at bedside in the ICU. Ventilator on SIMV mode. Sedation switched from propofol to precedex. OBJECTIVE: Vital Signs Period Temp Pulse Resp BP Sys/Sawyer Pulse Ox Last 24 Hr 97.4 F-98.8 F 44-132 16-21 105-166/58-94 95-100 GENERAL: The patient is intubated, sedated, in no acute distress. HEAD: Normal with no signs of trauma. EYES: PERRL, sclera anicteric, conjunctiva clear. No ptosis. ENT: Ears normal, nares patent, oropharynx clear without exudates, moist mucous membranes. NECK: Trachea midline, full range of motion, supple. LUNGS: Vented. Breath sounds equal. No accessory muscle use. HEART: Regular rate and rhythm, S1, S2 without murmur, rub or gallop. ABDOMEN: Soft, nontender, nondistended, normoactive bowel sounds, no guarding, no rebound, no hepatosplenomegaly, no masses. EXTREMITIES: 2+ pulses, warm, well-perfused, no edema. NEUROLOGICAL: Unable to assess. PSYCH: Unable to assess. SKIN: Warm, dry, normal turgor, no rashes or lesions noted Laboratory Results - last 24 hr 03/01/19 03/02/19 03/02/19 16:56 05:50 06:10 WBC 13.3 H RBC 3.19 L Hgb 8.4 L Hct 25.7 L MCV 80.8 MCH 26.5 MCHC 32.8 RDW 16.8 H Plt Count 154 MPV 9.3 Absolute Neuts (auto) 12.4 H Neutrophils % 93.0 H Neutrophils % (Manual) 89.5 H Band Neutrophils % 1.0 Lymphocytes % 2.2 L D Lymphocytes % (Manual) 0.0 L Monocytes % 4.3 Monocytes % (Manual) 1 L Eosinophils % 0.0 Eosinophils % (Manual) 0.0 Basophils % 0.5 Basophils % (Manual) 0.0 Myelocytes % (Man) 5 H D Promyelocytes % (Man) 0 Blast Cells % (Manual) 0 Nucleated RBC % 0 Metamyelocytes 2 D Hypochromia 0 Platelet Estimate Decreased Polychromasia 1+ Anisocytosis 1+ Microcytosis 1+ Macrocytosis 0 [place] Cells 1+ Fragmented RBCs 1+ Retic Count Anticoagulation Therapy No Result Required. Puncture Site Left radial ABG pH 7.40 ABG pCO2 at Pt Temp 29.8 L ABG pO2 at Pt Temp 106 H ABG HCO3 17.9 L ABG O2 Sat (Measured) 98.0 ABG O2 Content 11.1 ABG Base Excess -5.8 L Bj Test Positive O2 Delivery Device No Result Required. Oxygen Flow Rate 40% Vent Mode No Result Required. Vent Rate No Result Required. Mechanical Rate No Result Required. PEEP 5.0 Pressure Support Vent No Result Required. Sodium Potassium Chloride Carbon Dioxide Anion Gap BUN Creatinine Est GFR (CKD-EPI)AfAm Est GFR (CKD-EPI)NonAf POC Glucometer 67 Random Glucose Calcium Phosphorus Magnesium Iron TIBC Iron Saturation Unsaturated IBC Total Bilirubin AST ALT Alkaline Phosphatase Total Protein Albumin Vitamin B12 Serum Folate Blood Type Antibody Screen 03/02/19 03/02/19 03/02/19 06:10 06:10 09:55 WBC RBC Hgb Hct MCV MCH MCHC RDW Plt Count MPV Absolute Neuts (auto) Neutrophils % Neutrophils % (Manual) Band Neutrophils % Lymphocytes % Lymphocytes % (Manual) Monocytes % Monocytes % (Manual) Eosinophils % Eosinophils % (Manual) Basophils % Basophils % (Manual) Myelocytes % (Man) Promyelocytes % (Man) Blast Cells % (Manual) Nucleated RBC % Metamyelocytes Hypochromia Platelet Estimate Polychromasia Anisocytosis Microcytosis Macrocytosis [place] Cells Fragmented RBCs Retic Count 0.61 Anticoagulation Therapy Puncture Site ABG pH ABG pCO2 at Pt Temp ABG pO2 at Pt Temp ABG HCO3 ABG O2 Sat (Measured) ABG O2 Content ABG Base Excess Bj Test O2 Delivery Device Oxygen Flow Rate Vent Mode Vent Rate Mechanical Rate PEEP Pressure Support Vent Sodium 145 Potassium 3.9 Chloride 117 H Carbon Dioxide 21 Anion Gap 7 L BUN 31.5 H Creatinine 1.1 Est GFR (CKD-EPI)AfAm 60.16 Est GFR (CKD-EPI)NonAf 51.91 POC Glucometer Random Glucose 104 Calcium 8.3 L Phosphorus 2.8 Magnesium 2.3 Iron 24 L TIBC 169 L Iron Saturation 14 L Unsaturated IBC 145 L Total Bilirubin 0.3 AST 17 ALT 19 Alkaline Phosphatase 62 Total Protein 4.9 L Albumin 2.1 L Vitamin B12 1748 H Serum Folate 9 Blood Type A POSITIVE Antibody Screen Negative Active Medications Generic Name Dose Route Start Last Admin Trade Name Freq PRN Reason Stop Dose Admin Acetaminophen 600 mg 02/26/19 23:57 02/27/19 00:20 Ofirmev Injection - IVPB 600 mg Q6H PRN Administration FEVER Albuterol/Ipratropium 1 amp 02/26/19 16:00 03/02/19 12:21 Duoneb - NEB 1 amp RQID BRIE Administration Chlorhexidine Gluconate 1 applic 02/26/19 22:00 03/01/19 21:30 Hibiclens For Decolonization - TP 1 applic HS BRIE Administration Heparin Sodium (Porcine) 5,000 unit 02/26/19 22:00 03/02/19 09:29 Heparin - SQ 5,000 unit BID BRIE Administration Ceftriaxone Sodium 1 gm/ 50 mls @ 200 mls/hr 02/26/19 15:00 03/02/19 09:30 Dextrose IVPB 200 mls/hr DAILY BRIE Administration Protocol Doxycycline Hyclate 100 mg/ 100 mls @ 100 mls/hr 02/27/19 10:00 03/02/19 09: 30 Dextrose IVPB 100 mls/hr BID BRIE Administration Dexmedetomidine HCl 200 mcg/ 50 mls @ 2.8 mls/hr 03/02/19 12:00 Sodium Chloride IVPB TITR BRIE 0.2 MCG/KG/HR Methylprednisolone Sodium Succinate 60 mg 02/26/19 14:45 03/02/19 06:07 Solu-Medrol - IVPB 60 mg Q8H BRIE Administration Mupirocin 1 applic 02/26/19 22:00 03/02/19 09:29 Bactroban Ointment (For Decolonization) - NS 03/03/19 21:59 1 applic BID [facility]RIE Administration Pantoprazole Sodium 40 mg 03/02/19 10:00 03/02/19 09:30 Protonix Iv IVPUSH 40 mg BID [facility]RIE Administration ASSESSMENT/PLAN: The patient is a 67 year old female with a significant PMH of COPD on 2 L Oxygen at home, h/o of intubation for COPD, HTN, left sided lung Ca, s/p surgery 2013, right breast Ca, s/p radiation in 2009 BIBA for SOB and cough for few days, was found in ED to be in acute respiratory distress with AMS and was intubated and admitted to ICU for COPD exacerbation . #Acute hypoxic hypercapnic resp failure likley 2/2 COPD exacerbation/ malignancy /h/o Lung Cancer * likely caused by pneumonia, COPD exacerbation, CXR with left base infiltrate, right base effusion * continue Duonebs PRN and BRIE * continue Solu-medrol 60 mg Q8H * f/u ABG: s/p reintubation showing 7.36, 34.2, 18.8 * Flu swab negative for influenza, Legionella ag negative * sputum culture negative * f/u blood/urine cultures negative. * continue NS @ 100 CC/hr * ID consulted, will f/u recommendations * Maintain O2 Sat > 90% * maintain MAP > 65 * daily sedation vacation to assess mental status * spontaneous breathing trials as tolerated * low tidal volume ventilation 8cc/kg/IBW * off levo after rounds today, B12 elevated, MCV >100. * sedative switched from propofol to precedex ID -> Septic shock 2/ PNA - continue Ceftriaxone/doxycycline for CAP coverage - UA growing strep PNA which will be covered by the ceftriaxone. - serology panel Hep A, B, C, influenza negative, the rest is pending. Cardio -> HTN * hold Norvasc 5 mg daily, pt cannot tolerate PO meds. 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 #DVT PPX: * Heparin sq #F/E/N/G/I * NS @ 100 CC/hr * Monitor lytes and replete prn * start tube feeds if FOBT negative * Protonix IVP 40 daily * monitor urine output, Cr Dispo: continue ICU care Visit type - Emergency Visit Emergency Visit: No - New Patient This patient is new to me today: No - Critical Care Critical Care patient: Yes Total Critical Care Time (in minutes): 35 Critical Care Statement: The care of this patient involved high complexity decision making to prevent further life threatening deterioration of the patient 's condition and/or to evaluate & treat vital organ system(s) failure or risk of failure. ATTENDING PHYSICIAN STATEMENT I saw and evaluated the patient. I reviewed the resident's note and discussed the case with the resident. I agree with the resident's findings and plan as documented. SUBJECTIVE: OBJECTIVE: ASSESSMENT AND PLAN:
[2019-03-02] MEDS ORDERED: PT OWN MED DRAWER 7, Y5N ONE ×2 (13:39→21:24)
[2019-03-02 13:44] LABS: BASO % 0.2 % (0-2.0); HEMATOCRIT 31.2 % (32.4-45.2); HEMOGLOBIN 9.7 GM/dL (10.7-15.3); LYMPH % 1.2 % (8-40); MCH 25.5 pg (25.7-33.7); MCHC 31.2 g/dl (32.0-36.0); MEAN CELL VOLUME 81.5 fl (80-96); MEAN PLT VOLUME 9.3 fl (7.5-11.1); MONO % 3.8 % (3.8-10.2); NEUT % 94.8 % (42.8-82.8); PLATELET COUNT 183 K/MM3 (134-434); RBC 3.83 M/mm3 (3.60-5.2); RDW 16.9 % (11.6-15.6); WHITE BLOOD COUNT 16.9 K/mm3 (4.0-10.0)
[2019-03-02 15:01] LABS: ANISOCYTOSIS 0; MACROCYTOSIS 0; PLATELET ESTIMATE NORMAL
[2019-03-02] MEDS: PROPOFOL 1,000,000 MCG/100 ML VIAL IVPB SCH ×2 (17:01→22:55)
[2019-03-02] MEDS: CHLORHEXIDINE GLUCONATE 4% CLEANSER FOR DECOLONIZATION TP SCH (21:33)
[2019-03-03] MEDS: methylPREDNISolone NA SUCC 40 MG/1 ML VIAL IVPB SCH ×3 (06:45→21:47)
[2019-03-03 06:54] LABS: ARTERIAL BLD GAS O2 SATURATION 94.2 % (95-98); ARTERIAL BLOOD GAS BASE EXCESS -4.6 meq/l (-2-2); ARTERIAL BLOOD GAS PCO2 35.9 mmHg (35-45); ARTERIAL BLOOD GAS PO2 73.3 mmHg (80-100); ARTERIAL BLOOD GAS pH 7.36 (7.35-7.45)
[2019-03-03 06:56] LABS: ALLENS TEST POSITIVE
[2019-03-03 07:27] LABS: BASO % 0.3 % (0-2.0); EOS % 0.8 % (0-4.5); HEMATOCRIT 26.5 % (32.4-45.2); HEMOGLOBIN 8.7 GM/dL (10.7-15.3); LYMPH % 2.4 % (8-40); MCH 26.6 pg (25.7-33.7); MCHC 32.8 g/dl (32.0-36.0); MEAN CELL VOLUME 81.2 fl (80-96); MEAN PLT VOLUME 9.2 fl (7.5-11.1); MONO % 6.2 % (3.8-10.2); NEUT % 90.3 % (42.8-82.8); PLATELET COUNT 166 K/MM3 (134-434); RBC 3.27 M/mm3 (3.60-5.2); RDW 16.2 % (11.6-15.6); WHITE BLOOD COUNT 9.7 K/mm3 (4.0-10.0)
--- NOTE | 2019-03-03 07:46 | PN ---
Physical Exam: SUBJECTIVE: Patient seen and examined OBJECTIVE: Vital Signs Period Temp Pulse Resp BP Sys/Sawyer Pulse Ox Last 24 Hr 97.4 F-98.8 F 44-132 14-21 109-166/77-95 95-100 GENERAL: The patient is awake, alert, and fully oriented, in no acute distress. HEAD: Normal with no signs of trauma. EYES: PERRL, extraocular movements intact, sclera anicteric, conjunctiva clear. No ptosis. ENT: Ears normal, nares patent, oropharynx clear without exudates, moist mucous membranes. NECK: Trachea midline, full range of motion, supple. LUNGS: Breath sounds equal, clear to auscultation bilaterally, no wheezes, no crackles, no accessory muscle use. HEART: Regular rate and rhythm, S1, S2 without murmur, rub or gallop. ABDOMEN: Soft, nontender, nondistended, normoactive bowel sounds, no guarding, no rebound, no hepatosplenomegaly, no masses. EXTREMITIES: 2+ pulses, warm, well-perfused, no edema. NEUROLOGICAL: Cranial nerves II through XII grossly intact. Normal speech, gait not observed. PSYCH: Normal mood, normal affect. SKIN: Warm, dry, normal turgor, no rashes or lesions noted Laboratory Results - last 24 hr 02/27/19 03/02/19 03/02/19 09:15 06:10 06:10 WBC 13.3 H RBC 3.19 L Hgb 8.4 L Hct 25.7 L MCV 80.8 MCH 26.5 MCHC 32.8 RDW 16.8 H Plt Count 154 MPV 9.3 Absolute Neuts (auto) 12.4 H Neutrophils % 93.0 H Neutrophils % (Manual) 89.5 H Band Neutrophils % 1.0 Lymphocytes % 2.2 L D Lymphocytes % (Manual) 0.0 L Monocytes % 4.3 Monocytes % (Manual) 1 L Eosinophils % 0.0 Eosinophils % (Manual) 0.0 Basophils % 0.5 Basophils % (Manual) 0.0 Myelocytes % (Man) 5 H D Promyelocytes % (Man) 0 Blast Cells % (Manual) 0 Nucleated RBC % 0 Metamyelocytes 2 D Hypochromia 0 Platelet Estimate Decreased Polychromasia 1+ Poikilocytosis Anisocytosis 1+ Microcytosis 1+ Macrocytosis 0 [place] Cells 1+ Fragmented RBCs 1+ Retic Count Puncture Site ABG pH ABG pCO2 at Pt Temp ABG pO2 at Pt Temp ABG HCO3 ABG O2 Sat (Measured) ABG O2 Content ABG Base Excess Bj Test O2 Delivery Device Oxygen Flow Rate Vent Mode Vent Rate PEEP Pressure Support Vent Sodium 145 Potassium 3.9 Chloride 117 H Carbon Dioxide 21 Anion Gap 7 L BUN 31.5 H Creatinine 1.1 Est GFR (CKD-EPI)AfAm 60.16 Est GFR (CKD-EPI)NonAf 51.91 Random Glucose 104 Calcium 8.3 L Phosphorus 2.8 Magnesium 2.3 Iron 24 L TIBC 169 L Iron Saturation 14 L Unsaturated IBC 145 L Total Bilirubin 0.3 AST 17 ALT 19 Alkaline Phosphatase 62 Total Protein 4.9 L Albumin 2.1 L Vitamin B12 1748 H Serum Folate 9 Adenovirus (PCR) Negative Human Metapneumovir PCR Negative Influenza A (H1) PCR Negative Influenza B (RT-PCR) Negative Parainfluenza 1 (PCR) Negative Parainfluenza 2 (PCR) Negative Parainfluenza 3 (PCR) Negative RSV Type A (PCR) Negative RSV Type B (PCR) Negative Rhinovirus (PCR) Negative Blood Type Antibody Screen 03/02/19 03/02/19 03/02/19 06:10 09:55 13:05 WBC 16.9 H RBC 3.83 Hgb 9.7 L Hct 31.2 L D MCV 81.5 MCH 25.5 L MCHC 31.2 L RDW 16.9 H Plt Count 183 MPV 9.3 Absolute Neuts (auto) 16.0 H Neutrophils % 94.8 H Neutrophils % (Manual) 90.9 H Band Neutrophils % 0.0 Lymphocytes % 1.2 L D Lymphocytes % (Manual) 3.1 L D Monocytes % 3.8 Monocytes % (Manual) 2 L D Eosinophils % 0.0 Eosinophils % (Manual) 0.0 Basophils % 0.2 Basophils % (Manual) 0.0 Myelocytes % (Man) 2 D Promyelocytes % (Man) 0 Blast Cells % (Manual) 0 Nucleated RBC % 0 Metamyelocytes 2 Hypochromia 0 Platelet Estimate Normal Polychromasia 0 Poikilocytosis 0 Anisocytosis 0 Microcytosis 0 Macrocytosis 0 [place] Cells Fragmented RBCs Retic Count 0.61 Puncture Site ABG pH ABG pCO2 at Pt Temp ABG pO2 at Pt Temp ABG HCO3 ABG O2 Sat (Measured) ABG O2 Content ABG Base Excess Bj Test O2 Delivery Device Oxygen Flow Rate Vent Mode Vent Rate PEEP Pressure Support Vent Sodium Potassium Chloride Carbon Dioxide Anion Gap BUN Creatinine Est GFR (CKD-EPI)AfAm Est GFR (CKD-EPI)NonAf Random Glucose Calcium Phosphorus Magnesium Iron TIBC Iron Saturation Unsaturated IBC Total Bilirubin AST ALT Alkaline Phosphatase Total Protein Albumin Vitamin B12 Serum Folate Adenovirus (PCR) Human Metapneumovir PCR Influenza A (H1) PCR Influenza B (RT-PCR) Parainfluenza 1 (PCR) Parainfluenza 2 (PCR) Parainfluenza 3 (PCR) RSV Type A (PCR) RSV Type B (PCR) Rhinovirus (PCR) Blood Type A POSITIVE Antibody Screen Negative 03/02/19 03/03/19 03/03/19 13:05 05:45 06:45 WBC 9.7 RBC 3.27 L Hgb 8.7 L Hct 26.5 L D MCV 81.2 MCH 26.6 MCHC 32.8 RDW 16.2 H Plt Count 166 MPV 9.2 Absolute Neuts (auto) 8.8 H Neutrophils % 90.3 H Neutrophils % (Manual) Band Neutrophils % Lymphocytes % 2.4 L D Lymphocytes % (Manual) Monocytes % 6.2 Monocytes % (Manual) Eosinophils % 0.8 D Eosinophils % (Manual) Basophils % 0.3 Basophils % (Manual) Myelocytes % (Man) Promyelocytes % (Man) Blast Cells % (Manual) Nucleated RBC % 0 Metamyelocytes Hypochromia Platelet Estimate Polychromasia Poikilocytosis Anisocytosis Microcytosis Macrocytosis [place] Cells Fragmented RBCs Retic Count Puncture Site Right radial ABG pH 7.36 ABG pCO2 at Pt Temp 35.9 ABG pO2 at Pt Temp 73.3 L ABG HCO3 19.8 L ABG O2 Sat (Measured) 94.2 L ABG O2 Content 12.6 ABG Base Excess -4.6 L Bj Test Positive O2 Delivery Device Vent Oxygen Flow Rate 40% Vent Mode A/c Vent Rate 16 PEEP 5.0 Pressure Support Vent 500 Sodium Potassium Chloride Carbon Dioxide Anion Gap BUN Creatinine Est GFR (CKD-EPI)AfAm Est GFR (CKD-EPI)NonAf Random Glucose Calcium Phosphorus Magnesium Iron TIBC Iron Saturation Unsaturated IBC Total Bilirubin AST ALT Alkaline Phosphatase Total Protein Albumin Vitamin B12 Serum Folate Adenovirus (PCR) Human Metapneumovir PCR Influenza A (H1) PCR Influenza B (RT-PCR) Parainfluenza 1 (PCR) Parainfluenza 2 (PCR) Parainfluenza 3 (PCR) RSV Type A (PCR) RSV Type B (PCR) Rhinovirus (PCR) Blood Type A POSITIVE Antibody Screen Active Medications Generic Name Dose Route Start Last Admin Trade Name Freq PRN Reason Stop Dose Admin Acetaminophen 600 mg 02/26/19 23:57 02/27/19 00:20 Ofirmev Injection - IVPB 600 mg Q6H PRN Administration FEVER Albuterol/Ipratropium 1 amp 02/26/19 16:00 03/02/19 21:00 Duoneb - NEB 1 amp RQID BRIE Administration Chlorhexidine Gluconate 1 applic 02/26/19 22:00 03/02/19 21:33 Hibiclens For Decolonization - TP 1 applic HS BRIE Administration Heparin Sodium (Porcine) 5,000 unit 02/26/19 22:00 03/02/19 21:33 Heparin - SQ 5,000 unit BID BRIE Administration Ceftriaxone Sodium 1 gm/ 50 mls @ 200 mls/hr 02/26/19 15:00 03/02/19 09:30 Dextrose IVPB 200 mls/hr DAILY BRIE Administration Protocol Doxycycline Hyclate 100 mg/ 100 mls @ 100 mls/hr 02/27/19 10:00 03/02/19 21: 33 Dextrose IVPB 100 mls/hr BID BRIE Administration Propofol 1,000,000 mcg in 100 mls @ 1.683 mls/hr 03/02/19 16:30 03/03/19 01: 32 Diprivan - IVPB 5 mcg/kg/min TITR BRIE 1.683 mls/hr Titration Protocol 5 MCG/KG/MIN Methylprednisolone Sodium Succinate 60 mg 02/26/19 14:45 03/03/19 06:45 Solu-Medrol - IVPB 60 mg Q8H BRIE Administration Mupirocin 1 applic 02/26/19 22:00 03/02/19 21:37 Bactroban Ointment (For Decolonization) - NS 03/03/19 21:59 1 applic BID BRIE Administration Pantoprazole Sodium 40 mg 03/02/19 10:00 03/02/19 21:32 Protonix Iv IVPUSH 40 mg BID BRIE Administration ASSESSMENT/PLAN: REMAINS CRITICALLY ILL IN THE ICU -Acute on chronic mixed respiratory failure requiring mechanical ventillation; PREPARING FOR POTENTIAL EXTUB -Septic Shock secondary to pneumococcal pneumonia, weaned from NE ggt, monitor -Sinus Bradycardia, consider CV consult but will first address with ICU team. No BB, etc -Elevated BNP -Hx Lung cancer -Hx COPD on home O2, PFTs unknown -Septic shock vs. hypotension 2/2 induction in the setting of respiratory failure-on broad spectrum and w/o fever, pending ID consult -Hypoalbuminemia -HypooMg -HyperK -Hx Gastric CA CONTINUE ICU CARE MONITOR H/H CONTINUE TO MONITOR QD LABS, TELE DEFER VENT MANAGEMENT TO CCM Visit type - Emergency Visit Emergency Visit: Yes ED Registration Date: 02/26/19 Care time: The patient presented to the Emergency Department on the above date and was hospitalized for further evaluation of their emergent condition. - New Patient This patient is new to me today: No - Critical Care Critical Care patient: Yes Total Critical Care Time (in minutes): 30 Critical Care Statement: The care of this patient involved high complexity decision making to prevent further life threatening deterioration of the patient 's condition and/or to evaluate & treat vital organ system(s) failure or risk of failure.
[2019-03-03 07:50] LABS: ALBUMIN 2.3 g/dl (3.4-5.0); BILIRUBIN,TOTAL 0.4 mg/dL (0.2-1); BLOOD UREA NITROGEN 38.9 mg/dL (7-18); CALCIUM 8.7 mg/dL (8.5-10.1); CREATININE 1.1 mg/dL (0.55-1.3); MAGNESIUM 2.4 mg/dL (1.8-2.4); PHOSPHOROUS 3.4 mg/dL (2.5-4.9); POTASSIUM 4.1 mmol/L (3.5-5.1); TOT PROT 5.1 g/dl (6.4-8.2)
[2019-03-03] MEDS: ALBUTEROL SO4 2.5/IPRATROPIUM 0.5 INH SOL 3 ML VIAL.NEB. NEB SCH ×3 (08:34→20:00)
--- NOTE | 2019-03-03 08:39 | PN ---
Physical Exam: SUBJECTIVE: Patient seen and examined at bedside. pt is awake and alert and communicates with pen and paper. pt denied pain but asks to be suctioned through ET tube. OBJECTIVE: Vital Signs Period Temp Pulse Resp BP Sys/Sawyer Pulse Ox Last 24 Hr 97.4 F-98.8 F 44-132 14-21 109-166/77-95 95-100 GENERAL: The patient is awake, alert, and oriented, in no acute distress. pt is intubated LUNGS: Breath sounds equal, clear to auscultation bilaterally, no accessory muscle use. intubated and saturating well HEART: Regular rate and rhythm, S1, S2 without murmur, rub or gallop. ABDOMEN: Soft, nontender, nondistended, normoactive bowel sounds, no guarding EXTREMITIES: 2+ pulses, warm, well-perfused, no edema. SKIN: Warm, dry, normal turgor, no rashes or lesions noted CBC, BMP 03/03/19 05:45 03/03/19 05:45 ABG Results ABG pH 7.36 (7.35-7.45) 03/03/19 06:45 ABG pCO2 at Pt Temp 35.9 mmHg (35-45) 03/03/19 06:45 ABG pO2 at Pt Temp 73.3 mmHg (80-100) L 03/03/19 06:45 ABG HCO3 19.8 mmol/L (22-27) L 03/03/19 06:45 ABG O2 Sat (Measured) 94.2 % (95-98) L 03/03/19 06:45 ABG O2 Content 12.6 % vol 03/03/19 06:45 ABG Base Excess -4.6 meq/l (-2-2) L 03/03/19 06:45 Current Medications Acetaminophen (Ofirmev Injection -) 600 mg IVPB Q6H PRN PRN Reason: FEVER Last Admin: 02/27/19 00:20 Dose: 600 mg Albuterol/Ipratropium (Duoneb -) 1 amp NEB RQID BRIE Last Admin: 03/03/19 08:34 Dose: Not Given Chlorhexidine Gluconate (Hibiclens For Decolonization -) 1 applic TP HS BRIE Last Admin: 03/02/19 21:33 Dose: 1 applic Heparin Sodium (Porcine) (Heparin -) 5,000 unit SQ BID [facility] Last Admin: 03/02/19 21:33 Dose: 5,000 unit Ceftriaxone Sodium 1 gm/ (Dextrose) 50 mls @ 200 mls/hr IVPB DAILY [facility]; Protocol Last Admin: 03/02/19 09:30 Dose: 200 mls/hr Doxycycline Hyclate 100 mg/ (Dextrose) 100 mls @ 100 mls/hr IVPB BID [facility] Last Admin: 03/02/19 21:33 Dose: 100 mls/hr Propofol (Diprivan -) 1,000,000 mcg in 100 mls @ 1.683 mls/hr IVPB TITR [facility]; Protocol Last Titration: 03/03/19 01:32 Dose: 5 mcg/kg/min, 1.683 mls/hr Methylprednisolone Sodium Succinate (Solu-Medrol -) 60 mg IVPB Q8H [facility] Last Admin: 03/03/19 06:45 Dose: 60 mg Mupirocin (Bactroban Ointment (For Decolonization) -) 1 applic NS BID [facility] Stop: 03/03/19 21:59 Last Admin: 03/02/19 21:37 Dose: 1 applic Pantoprazole Sodium (Protonix Iv) 40 mg IVPUSH BID [facility] Last Admin: 03/02/19 21:32 Dose: 40 mg ASSESSMENT/PLAN: 67 yo F with PMH of COPD (on 2 L home O2), h/o of intubation for COPD, HTN, left sided lung Ca, s/p surgery 2013, right breast Ca, s/p radiation in 2009 BIBA for SOB and cough for few days, was found in ED to be in acute respiratory distress with AMS and was intubated and admitted to ICU for COPD exacerbation . Pulm: Acute hypoxic hypercapnic resp failure likley 2/2 COPD exacerbation/ malignancy/h/o Lung Cancer -likely caused by pneumonia, COPD exacerbation, CXR with left base infiltrate, right base effusion -continue Duonebs PRN and BRIE -continue Solu-medrol 60 mg Q8H -ABG reviewed, see above -Flu swab negative for influenza, Legionella ag negative -sputum culture negative, blood/urine cultures negative. -ID consulted, will f/u recommendations -Maintain O2 Sat > 90% -maintain MAP > 65 -extubated and now on BIPAP. monitor closely ID: Septic shock 2/2 PNA - continue Ceftriaxone/doxycycline day 6 for CAP coverage - UA growing strep PNA which will be covered by the ceftriaxone. - serology panel Hep A, B, C, influenza negative, the rest is pending. Cardio : HTN -continue to hold Norvasc 5 mg daily, pt cannot tolerate PO meds. -ECHO : EF 60-65%, Pulm a systolic pressure ~42 -off pressors, maintain MAP > 65 Neuro: Deann syndrome - per patients : patient underwent BAL and bx of lung for a mass that caused the blown pupil. 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 DVT PPX:Heparin sq F/E/N/G/I -Monitor lytes and replete prn -Protonix IVP 40 daily -monitor urine output, Cr Dispo: continue ICU care Visit type - Emergency Visit Emergency Visit: No - New Patient This patient is new to me today: No - Critical Care Critical Care patient: Yes Total Critical Care Time (in minutes): 36 Critical Care Statement: The care of this patient involved high complexity decision making to prevent further life threatening deterioration of the patient 's condition and/or to evaluate & treat vital organ system(s) failure or risk of failure. ATTENDING PHYSICIAN STATEMENT I saw and evaluated the patient. I reviewed the resident's note and discussed the case with the resident. I agree with the resident's findings and plan as documented. SUBJECTIVE: OBJECTIVE: ASSESSMENT AND PLAN:
[2019-03-03] MEDS ORDERED: cefTRIAXone SODIUM 1 GM VIAL ONE (08:56)
[2019-03-03] MEDS ORDERED: DEXTROSE 5%-WATER - 50 ML IVPB ONE (08:57)
[2019-03-03] MEDS ORDERED: PT OWN MED DRAWER 7, Y5N ONE ×2 (09:28→21:23)
[2019-03-03] MEDS: CEFTRIAXONE 1 GM in DEXTROSE 5%-WATER - 50 ML IVPB SCH (09:30)
[2019-03-03] MEDS: DOXYCYCLINE INJECTION 100 MG in DEXTROSE 5%-WATER - 100 ML IVPB SCH ×2 (09:30→21:25)
[2019-03-03] MEDS: PANTOPRAZOLE SODIUM 40 MG VIAL IVPUSH SCH (09:31)
[2019-03-03] MEDS: HEPARIN NA (PORCINE) 5,000 UNITS/ML 1ML VIAL SQ SCH ×2 (09:31→21:24)
[2019-03-03] MEDS ORDERED: morphine CARPU-JECT 4 MG/1 ML DISP.SYRIN IVPUSH ONE (10:24)
[2019-03-03] MEDS ORDERED: MORPHINE SULFATE 2 MG/ML VIAL ONE (10:27)
--- NOTE | 2019-03-03 11:34 | PN ---
Teaching Attending Note Name of Resident: Nataliya Ornelas ATTENDING PHYSICIAN STATEMENT I saw and evaluated the patient. I reviewed the resident's note and discussed the case with the resident. I agree with the resident's findings and plan as documented. SUBJECTIVE: Pt seen and examined in the ICU. Intubated, awake, following commands. Tolerated CPAP/PS and subsequently extubated to BiPAP. OBJECTIVE: Vital Signs Period Temp Pulse Resp BP Sys/Sawyer Pulse Ox Last 24 Hr 98.1 F-98.8 F 44-132 14-21 109-165/77-95 96-100 Intake & Output 02/28/19 03/01/19 03/02/19 03/03/19 23:59 23:59 23:59 23:59 Intake Total 1181 2938.5 1905 14 Output Total 900 1250 1275 500 Balance 281 1688.5 630 -486 Weight 54.431 kg 55.066 kg 56.109 kg 53.841 kg Gen: extubated Heart: RRR Lung: decreased breath sounds at the bases Abd: soft, nontender Ext: no edema CBC, BMP 03/03/19 05:45 03/03/19 05:45 Active Medications Acetaminophen (Ofirmev Injection -) 600 mg IVPB Q6H PRN PRN Reason: FEVER Last Admin: 02/27/19 00:20 Dose: 600 mg Albuterol/Ipratropium (Duoneb -) 1 amp NEB RQID [facility] Last Admin: 03/03/19 11:34 Dose: Not Given Chlorhexidine Gluconate (Hibiclens For Decolonization -) 1 applic TP HS [facility] Last Admin: 03/02/19 21:33 Dose: 1 applic Heparin Sodium (Porcine) (Heparin -) 5,000 unit SQ BID [facility] Last Admin: 03/03/19 09:31 Dose: 5,000 unit Ceftriaxone Sodium 1 gm/ (Dextrose) 50 mls @ 200 mls/hr IVPB DAILY [facility]; Protocol Last Admin: 03/03/19 09:30 Dose: 200 mls/hr Doxycycline Hyclate 100 mg/ (Dextrose) 100 mls @ 100 mls/hr IVPB BID [facility] Last Admin: 03/03/19 09:30 Dose: 100 mls/hr Methylprednisolone Sodium Succinate (Solu-Medrol -) 60 mg IVPB Q8H [facility] Last Admin: 03/03/19 06:45 Dose: 60 mg Mupirocin (Bactroban Ointment (For Decolonization) -) 1 applic NS BID [facility] Stop: 03/03/19 21:59 Last Admin: 03/02/19 21:37 Dose: 1 applic Pantoprazole Sodium (Protonix Iv) 40 mg IVPUSH DAILY [facility] Last Admin: 03/03/19 09:31 Dose: 40 mg ASSESSMENT AND PLAN: Acute on Chronic Hypoxic and Hypercapneic Respiratory Failure Pneumonia Septic Shock Lactic Acidosis Acute COPD Exacerbation h/o Lung Ca h/o Breast Ca HTN - pt extubated - continue antibiotics - off pressors, maintain MAP >65 - monitor urine output, creatinine - continue medrol at current dose - inhaled bronchodilators - O2 to keep Spo2 >90% - DVT/GI prophylaxis - continue ICU monitoring critical care time spent in reviewing chart, evaluating patient and formulating plan 35 min
[2019-03-03 11:47] LABS: ANISOCYTOSIS 1+; MACROCYTOSIS 0; OVALOCYTE 1+; PLATELET ESTIMATE DECREASED; TARGET CELLS 1+
[2019-03-03] MEDS ORDERED: morphine CARPU-JECT 2 MG/1 ML DISP.SYRIN IVPUSH PRN (13:27)
[2019-03-03] MEDS: MUPIROCIN 2% TOPICAL OINTMENT FOR DECOLONIZATION NS SCH (13:27)
[2019-03-03] MEDS: MORPHINE SULFATE 2 MG/ML VIAL IVPUSH PRN ×2 (17:11→21:47)
[2019-03-03] MEDS: CHLORHEXIDINE GLUCONATE 4% CLEANSER FOR DECOLONIZATION TP SCH (21:26)
[2019-03-03] MEDS ORDERED: LABETALOL HCL 5 MG/1 ML (100MG/20 ML VIAL) IVPUSH ONE (23:04)
[2019-03-04] MEDS: methylPREDNISolone NA SUCC 40 MG/1 ML VIAL IVPB SCH ×3 (05:51→21:55)
[2019-03-04 05:55] LABS: HEMATOCRIT 29.3 % (32.4-45.2); HEMOGLOBIN 9.5 GM/dL (10.7-15.3); MCH 26.3 pg (25.7-33.7); MCHC 32.4 g/dl (32.0-36.0); MEAN CELL VOLUME 81.3 fl (80-96); MEAN PLT VOLUME 8.5 fl (7.5-11.1); PLATELET COUNT 193 K/MM3 (134-434); RDW 16.5 % (11.6-15.6); WHITE BLOOD COUNT 12.7 K/mm3 (4.0-10.0)
[2019-03-04 06:15] LABS: BLOOD UREA NITROGEN 42.7 mg/dL (7-18); CREATININE 1.1 mg/dL (0.55-1.3); MAGNESIUM 2.3 mg/dL (1.8-2.4); POTASSIUM 4.3 mmol/L (3.5-5.1)
--- NOTE | 2019-03-04 06:59 | PN ---
Physical Exam: SUBJECTIVE: Patient seen and examined at bedside. pt is denying pain,sob, or trouble breathing. pt states that she felt better while on the high flow than on the BIPAP OBJECTIVE: Vital Signs Period Temp Pulse Resp BP Sys/Sawyer Pulse Ox Last 24 Hr 97.2 F-98.2 F 67-100 12-18 145-170/81-97 97-100 GENERAL: The patient is awake, alert, and fully oriented, in no acute distress. HEAD: Normal with no signs of trauma. LUNGS: Breath sounds equal, clear to auscultation bilaterally, no accessory muscle use. HEART: Regular rate and rhythm, S1, S2 ABDOMEN: Soft, nontender, nondistended, normoactive bowel sounds, no guarding EXTREMITIES: 2+ pulses, warm, well-perfused, no edema. SKIN: Warm, dry, normal turgor, no rashes or lesions noted CBC, BMP 03/04/19 05:15 03/04/19 05:15 Current Medications Acetaminophen (Ofirmev Injection -) 600 mg IVPB Q6H PRN PRN Reason: FEVER Last Admin: 02/27/19 00:20 Dose: 600 mg Albuterol/Ipratropium (Duoneb -) 1 amp NEB RQID [facility] Last Admin: 03/03/19 20:00 Dose: 1 amp Amlodipine Besylate (Norvasc -) 10 mg PO DAILY [facility] Chlorhexidine Gluconate (Hibiclens For Decolonization -) 1 applic TP HS [facility] Last Admin: 03/03/19 21:26 Dose: 1 applic Heparin Sodium (Porcine) (Heparin -) 5,000 unit SQ BID [facility] Last Admin: 03/03/19 21:24 Dose: 5,000 unit Ceftriaxone Sodium 1 gm/ (Dextrose) 50 mls @ 200 mls/hr IVPB DAILY [facility]; Protocol Last Admin: 03/03/19 09:30 Dose: 200 mls/hr Doxycycline Hyclate 100 mg/ (Dextrose) 100 mls @ 100 mls/hr IVPB BID [facility] Last Admin: 03/03/19 21:25 Dose: 100 mls/hr Methylprednisolone Sodium Succinate (Solu-Medrol -) 60 mg IVPB Q8H [facility] Last Admin: 03/04/19 05:51 Dose: 60 mg Morphine Sulfate (Morphine Sulfate) 2 mg IVPUSH Q4H PRN PRN Reason: PAIN LEVEL 1-5 Last Admin: 03/03/19 21:47 Dose: 2 mg Pantoprazole Sodium (Protonix Iv) 40 mg IVPUSH DAILY [facility] Last Admin: 03/03/19 09:31 Dose: 40 mg ASSESSMENT/PLAN: 67 yo F with PMH of COPD (on 2 L home O2), h/o of intubation for COPD, HTN, left sided lung Ca, s/p surgery 2013, right breast Ca, s/p radiation in 2009 BIBA for SOB and cough for few days, was found in ED to be in acute respiratory distress with AMS and was intubated and admitted to ICU for COPD exacerbation . Pulm: Acute hypoxic hypercapnic resp failure likley 2/2 COPD exacerbation/ malignancy/h/o Lung Cancer -likely caused by pneumonia, COPD exacerbation, CXR with left base infiltrate, right base effusion -continue Duonebs PRN and [facility] -continue Solu-medrol 60 mg Q8H -Flu swab negative for influenza, Legionella ag negative -sputum culture negative, blood/urine cultures negative. -ID consulted, will f/u recommendations -Maintain O2 Sat > 90% -extubated and now on BIPAP. monitor closely. will try HFNC today w/ BIPAP at night and when necessary. pt counselled on not using BIPAP while eating ID: Septic shock 2/2 PNA - continue Ceftriaxone/doxycycline day 7 for CAP coverage - UA growing strep PNA which will be covered by the ceftriaxone. - serology panel Hep A, B, C, influenza negative, the rest is pending. Cardio : HTN -continue Norvasc 10 mg daily -ECHO : EF 60-65%, Pulm a systolic pressure ~42 - maintain MAP > 65 Neuro: Deann syndrome - per patients : patient underwent BAL and bx of lung for a mass that caused the blown pupil. 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 DVT PPX:Heparin sq F/E/N/G/I -Monitor lytes and replete prn -Protonix IVP 40 daily -monitor urine output, Cr Dispo: continue ICU care Visit type - Emergency Visit Emergency Visit: No - New Patient This patient is new to me today: No - Critical Care Critical Care patient: Yes Total Critical Care Time (in minutes): 36 Critical Care Statement: The care of this patient involved high complexity decision making to prevent further life threatening deterioration of the patient 's condition and/or to evaluate & treat vital organ system(s) failure or risk of failure. ATTENDING PHYSICIAN STATEMENT I saw and evaluated the patient. I reviewed the resident's note and discussed the case with the resident. I agree with the resident's findings and plan as documented. SUBJECTIVE: OBJECTIVE: ASSESSMENT AND PLAN:
[2019-03-04] MEDS: ALBUTEROL SO4 2.5/IPRATROPIUM 0.5 INH SOL 3 ML VIAL.NEB. NEB SCH ×4 (08:00→21:00)
[2019-03-04] MEDS ORDERED: PT OWN MED DRAWER 7, Y5N ONE (08:36)
[2019-03-04] MEDS ORDERED: DEXTROSE 5%-WATER - 50 ML IVPB ONE (08:36)
[2019-03-04] MEDS ORDERED: cefTRIAXone SODIUM 1 GM VIAL ONE (08:36)
[2019-03-04] MEDS: DOXYCYCLINE INJECTION 100 MG in DEXTROSE 5%-WATER - 100 ML IVPB SCH ×2 (09:21→21:24)
[2019-03-04] MEDS: CEFTRIAXONE 1 GM in DEXTROSE 5%-WATER - 50 ML IVPB SCH (09:22)
[2019-03-04] MEDS: PANTOPRAZOLE SODIUM 40 MG VIAL IVPUSH SCH (09:23)
[2019-03-04] MEDS: HEPARIN NA (PORCINE) 5,000 UNITS/ML 1ML VIAL SQ SCH ×2 (09:23→21:21)
--- NOTE | 2019-03-04 09:41 | PN ---
Progress Note (short form) - Note Progress Note: HPI: Extubated yesterdayto NIPPV without any notable overnight events. Pt concerned about coming off of NIPPV, however denies any overt SOB or chest pain , palpitations. Hypertensive this AM without any PE: Gen: NAD, awake, alert HEENT: NC/AT, JOSE, MMM Neck: No JVD LUNG: NIPPV with rales noted at bases otherwise without wheezing. Heart: RRR no murmurs Abd: soft, Nt/ND Ext: no edema CBC, BMP 03/04/19 05:15 03/04/19 05:15 Microbiology 02/26/19 12:00 Blood - Peripheral Venous Blood Culture - Final NO GROWTH AFTER 5 DAYS INCUBATION 02/26/19 12:00 Blood - Peripheral Venous Blood Culture - Final NO GROWTH AFTER 5 DAYS INCUBATION 02/27/19 00:20 Sputum - Endotrachea Suction/Ventilator Gram Stain - Final 02/27/19 00:20 Sputum - Endotrachea Suction/Ventilator Sputum Culture - Final NORMAL RESPIRATORY ABBIE 02/27/19 11:00 Urine For Antigen Detection Legionella Antigen - Final 02/27/19 11:00 Urine For Antigen Detection Streptococcus pneumoniae Antigen (M - Final 02/26/19 13:40 Urine - Urine - Catheterized Urine Culture - Final NO GROWTH OBTAINED Active Medications Acetaminophen (Ofirmev Injection -) 600 mg IVPB Q6H PRN PRN Reason: FEVER Last Admin: 02/27/19 00:20 Dose: 600 mg Albuterol/Ipratropium (Duoneb -) 1 amp NEB RQID [facility] Last Admin: 03/04/19 12:50 Dose: Not Given Amlodipine Besylate (Norvasc -) 10 mg PO DAILY [facility] Last Admin: 03/04/19 11:30 Dose: Not Given Chlorhexidine Gluconate (Hibiclens For Decolonization -) 1 applic TP HS [facility] Last Admin: 03/03/19 21:26 Dose: 1 applic Heparin Sodium (Porcine) (Heparin -) 5,000 unit SQ BID [facility] Last Admin: 03/04/19 09:23 Dose: 5,000 unit Ceftriaxone Sodium 1 gm/ (Dextrose) 50 mls @ 200 mls/hr IVPB DAILY [facility]; Protocol Last Admin: 03/04/19 09:22 Dose: 200 mls/hr Doxycycline Hyclate 100 mg/ (Dextrose) 100 mls @ 100 mls/hr IVPB BID [facility] Last Admin: 03/04/19 09:21 Dose: 100 mls/hr Methylprednisolone Sodium Succinate (Solu-Medrol -) [address] [facility] Last Admin: 03/04/19 05:51 Dose: 60 mg Morphine Sulfate (Morphine Sulfate) 2 mg IVPUSH Q4H PRN PRN Reason: PAIN LEVEL 1-5 Last Admin: 03/03/19 21:47 Dose: 2 mg Pantoprazole Sodium (Protonix Iv) [address] [facility] Last Admin: 03/04/19 09:23 Dose: 40 mg IMAGING: Echocardiogram: Interpretation Summary The left ventricle is normal in size. Left ventricular systolic function is normal. Ejection Fraction = 60-65%. No regional wall motion abnormalities noted. The right ventricular systolic function is normal. The left atrial size is normal. Right atrial size is normal. There is mild mitral annular calcification. There is mild mitral regurgitation. There is mild to moderate tricuspid regurgitation. Pulmonary artery systolic pressure is at least 42 mmHg is RA pressure is assumed 3 mmHg There is mild aortic sclerosis. There is no pericardial effusion. A/P: Acute on chronic hypoxic hypercapenic respiratory failure Septic shock 2/2 to pneumonia COPD Exacerbation Lactic acidosis (resolved) Acute anemia --Pt was extubated on 03/03/19 --Remains on unchanged NIPPV settings --Titrate to NC as tolerated and to SpO2 >90% --Continue Rocephin 1gm qdaily (day 7) --Continue Doxycyline 100mg BID (day 7) --Medrol continued at 60mg q8h IVP --Echocardiogram reviewed as above --Added home medication today: Norvasc 10mg qdaily FEN: Fluids: none Electrolyte abnormalities: HyperNa, HyperCl Nutrition: PPX: DVT - Heparin BID SQ GI - protonix 40mg IVP qdaily to switch to PO tomorrow Dispo: Transfer out of ICU Case discussed with ICU team and Dr. Jose C Conway, DO - IM PGY-3 <Wilber Conway - Last Filed: 03/04/19 14:30> - Note Progress Note: IMPROVED; S/P EXTUBATION. NO NEW COMPLAINTS. STABLE TO XF OUT OF UNIT AGREE WITH RESIDENT HISTORICAL AND PE FINDINGS AND INDEPENDENTLY VERIFIED ALL VS, LABS IMAGING REVIEWED NAD AAO RESTING IN BED ON O2 NC AT EOMI PERRL NT ND +BS STILL SOME WHEEZES BUT NO FOCAL CONSOLIDATIONS, W/ SYM EXP RRR S1/2 CN2-12 WNL, NO NEW NEURO DEFICITS, MOVES ALL 4 EXT REVIEWED TELE, LABS, DIAGNOSTICS -Acute on chronic mixed respiratory failure, S/P EXTUBATION -Septic Shock secondary to pneumococcal pneumonia, weaned from NE ggt, monitor -Sinus Bradycardia, consider CV consult but will first address with ICU team. No BB, etc -Elevated BNP -Hx Lung cancer -Hx COPD on home O2, PFTs unknown -Septic shock vs. hypotension 2/2 induction in the setting of respiratory failure-on broad spectrum and w/o fever, pending ID consult -Hypoalbuminemia -HypooMg -HyperK -Hx Gastric CA <Eric Woodall - Last Filed: 03/05/19 10:19>
[2019-03-04] MEDS: amLODIPine BESYLATE 10 MG TABLET (FP) PO SCH ×2 (09:42→11:30)
--- NOTE | 2019-03-04 11:52 | PN ---
Teaching Attending Note Name of Resident: Nataliya Ornelas ATTENDING PHYSICIAN STATEMENT I saw and evaluated the patient. I reviewed the resident's note and discussed the case with the resident. I agree with the resident's findings and plan as documented. SUBJECTIVE: Patient seen and examined in the ICU. Remains extubated on NIPPV. Awake and alert and oriented. Did not tolerated HFOT yesterday. OBJECTIVE: Intake & Output 03/01/19 03/02/19 03/03/19 03/04/19 23:59 23:59 23:59 23:59 Intake Total 2938.5 1905 318 0 Output Total 1250 1275 1000 400 Balance 1688.5 630 -682 -400 Weight 121 lb 6.4 oz 123 lb 11.2 oz 118 lb 11.2 oz 114 lb 6.4 oz Last Vital Signs Temp Pulse Resp BP Pulse Ox 97.8 F 78 16 159/84 100 03/04/19 10:00 03/04/19 11:00 03/04/19 11:00 03/04/19 11:00 03/04/19 10:00 Active Medications Acetaminophen (Ofirmev Injection -) 600 mg IVPB Q6H PRN PRN Reason: FEVER Last Admin: 02/27/19 00:20 Dose: 600 mg Albuterol/Ipratropium (Duoneb -) 1 amp NEB RQID [facility] Last Admin: 03/04/19 08:00 Dose: Not Given Amlodipine Besylate (Norvasc -) 10 mg PO DAILY [facility] Last Admin: 03/04/19 11:30 Dose: Not Given Chlorhexidine Gluconate (Hibiclens For Decolonization -) 1 applic TP HS [facility] Last Admin: 03/03/19 21:26 Dose: 1 applic Heparin Sodium (Porcine) (Heparin -) 5,000 unit SQ BID [facility] Last Admin: 03/04/19 09:23 Dose: 5,000 unit Ceftriaxone Sodium 1 gm/ (Dextrose) 50 mls @ 200 mls/hr IVPB DAILY [facility]; Protocol Last Admin: 03/04/19 09:22 Dose: 200 mls/hr Doxycycline Hyclate 100 mg/ (Dextrose) 100 mls @ 100 mls/hr IVPB BID [facility] Last Admin: 03/04/19 09:21 Dose: 100 mls/hr Methylprednisolone Sodium Succinate (Solu-Medrol -) 60 mg IVPB Q8H [facility] Last Admin: 03/04/19 05:51 Dose: 60 mg Morphine Sulfate (Morphine Sulfate) 2 mg IVPUSH Q4H PRN PRN Reason: PAIN LEVEL 1-5 Last Admin: 03/03/19 21:47 Dose: 2 mg Pantoprazole Sodium (Protonix Iv) 40 mg IVPUSH DAILY [facility] Last Admin: 03/04/19 09:23 Dose: 40 mg Gen: extubated on NIPPV support, awake and alert Heart: RRR Lung: decreased breath sounds at the bases Abd: soft, nontender Ext: no edema Laboratory Results - last 24 hr 03/03/19 03/04/19 03/04/19 05:45 05:15 05:15 WBC 12.7 H RBC 3.60 Hgb 9.5 L Hct 29.3 L MCV 81.3 MCH 26.3 MCHC 32.4 RDW 16.5 H Plt Count 193 MPV 8.5 Neutrophils % (Manual) 84.0 H Band Neutrophils % 5.0 Lymphocytes % (Manual) 3.0 L Monocytes % (Manual) 6 D Eosinophils % (Manual) 0.0 Basophils % (Manual) 0.0 Myelocytes % (Man) 1 D Promyelocytes % (Man) 1 D Blast Cells % (Manual) 0 Metamyelocytes 0 D Hypochromia 0 Platelet Estimate Decreased Platelet Comment Present Polychromasia 1+ Poikilocytosis 1+ Anisocytosis 1+ Microcytosis 1+ Macrocytosis 0 Spherocytes 1+ Target Cells 1+ Ovalocytes 1+ Rosendo Cells 1+ Acanthocytes (Spur) 1+ Schistocytes 1+ Sodium 148 H Potassium 4.3 Chloride 117 H Carbon Dioxide 24 Anion Gap 7 L BUN 42.7 H Creatinine 1.1 Est GFR (CKD-EPI)AfAm 60.16 Est GFR (CKD-EPI)NonAf 51.91 Random Glucose 98 Calcium 9.0 Phosphorus 4.0 Magnesium 2.3 ASSESSMENT AND PLAN: Acute on Chronic Hypoxic and Hypercapneic Respiratory Failure Pneumonia Septic Shock Lactic Acidosis Acute COPD Exacerbation h/o Lung Ca h/o Breast Ca HTN - NIPPV / HFOT as tolerated - ABX - Off pressors, maintain MAP >65 - Monitor urine output, creatinine - Continue medrol at current dose - inhaled bronchodilators - O2 to keep Spo2 >90% - DVT/GI prophylaxis Dr Harris
[2019-03-04] MEDS: CHLORHEXIDINE GLUCONATE 4% CLEANSER FOR DECOLONIZATION TP SCH (21:22)
[2019-03-05] MEDS ORDERED: LABETALOL HCL 5 MG/1 ML (100MG/20 ML VIAL) IVPUSH ONE (05:55)
[2019-03-05] MEDS: methylPREDNISolone NA SUCC 40 MG/1 ML VIAL IVPB SCH ×3 (05:59→21:45)
[2019-03-05 06:53] LABS: HEMATOCRIT 27.9 % (32.4-45.2); HEMOGLOBIN 9.2 GM/dL (10.7-15.3); MCH 26.5 pg (25.7-33.7); MCHC 33.1 g/dl (32.0-36.0); MEAN PLT VOLUME 8.4 fl (7.5-11.1); PLATELET COUNT 197 K/MM3 (134-434); RBC 3.49 M/mm3 (3.60-5.2); RDW 16.2 % (11.6-15.6); WHITE BLOOD COUNT 13.7 K/mm3 (4.0-10.0)
[2019-03-05 07:19] LABS: BLOOD UREA NITROGEN 42.7 mg/dL (7-18); CALCIUM 8.7 mg/dL (8.5-10.1); CREATININE 0.9 mg/dL (0.55-1.3); MAGNESIUM 2.3 mg/dL (1.8-2.4); POTASSIUM 4.1 mmol/L (3.5-5.1)
[2019-03-05] MEDS: ALBUTEROL SO4 2.5/IPRATROPIUM 0.5 INH SOL 3 ML VIAL.NEB. NEB SCH ×4 (08:11→20:10)
--- NOTE | 2019-03-05 08:19 | PN ---
Progress Note (short form) - Note Progress Note: PULM/CCM Patient seen and examined in the ICU. Remains extubated - awake and alert and oriented - eating: HFNC by day - NIPPV by night. Active Medications Acetaminophen (Ofirmev Injection -) 600 mg IVPB Q6H PRN PRN Reason: FEVER Last Admin: 02/27/19 00:20 Dose: 600 mg Albuterol/Ipratropium (Duoneb -) 1 amp NEB RQID [facility] Last Admin: 03/05/19 15:51 Dose: 1 amp Amlodipine Besylate (Norvasc -) 10 mg PO DAILY [facility] Last Admin: 03/05/19 09:18 Dose: 10 mg Chlorhexidine Gluconate (Hibiclens For Decolonization -) 1 applic TP HS [facility] Last Admin: 03/04/19 21:22 Dose: 1 applic Heparin Sodium (Porcine) (Heparin -) 5,000 unit SQ BID [facility] Last Admin: 03/05/19 09:21 Dose: 5,000 unit Ceftriaxone Sodium 1 gm/ (Dextrose) 50 mls @ 200 mls/hr IVPB DAILY [facility]; Protocol Last Admin: 03/05/19 09:16 Dose: 200 mls/hr Doxycycline Hyclate 100 mg/ (Dextrose) 100 mls @ 100 mls/hr IVPB BID [facility] Last Admin: 03/05/19 09:16 Dose: 100 mls/hr Methylprednisolone Sodium Succinate (Solu-Medrol -) 60 mg IVPB Q8H [facility] Last Admin: 03/05/19 15:00 Dose: 60 mg Morphine Sulfate (Morphine Sulfate) 2 mg IVPUSH Q4H PRN PRN Reason: PAIN LEVEL 1-5 Last Admin: 03/03/19 21:47 Dose: 2 mg Pantoprazole Sodium (Protonix Iv) 40 mg IVPUSH DAILY [facility] Last Admin: 03/05/19 09:17 Dose: 40 mg Vital Signs Period Temp Pulse Resp BP Sys/Sawyer Pulse Ox Last 24 Hr 98.2 F-98.6 F 50-108 14-21 130-162/75-99 93-100 Intake & Output 03/02/19 03/03/19 03/04/19 03/05/19 23:59 23:59 23:59 23:59 Intake Total 1905 318 500 610 Output Total 1275 1000 1200 1500 Balance 630 -682 -700 -890 Weight 56.109 kg 53.841 kg 51.891 kg 51.891 kg Gen: awake and alert - extubated on HFNC throughout the day - nocturnal NIPPV Heart: nml S1 S2, RR, unable to appreciate any G/M/R Lung: Diminished Abd: + BS, S/S N/T N/D X4Q Ext: + pulses, WWPX4, no edema CBC, BMP 03/05/19 05:10 03/05/19 05:10 CXR 03/04: Status post extubation with improving aeration bilaterally ASSESS: Acute on Chronic Hypoxic and Hypercapneic Respiratory Failure Pneumonia Septic Shock Lactic Acidosis Acute COPD Exacerbation h/o Lung Ca h/o Breast Ca HTN PLAN: - Rest off NIPPV w/ HFO as tolerated - Must use nocturnal NIPPV - O2 to keep Spo2 >90% - Nebs - ABX - Off pressors, maintain MAP >65 - Monitor urine output, creatinine - Slow Steroid Taper - DVT/GI prophylaxis - Clear for Floor [facility] ICU PULM/CCM [id number]
[2019-03-05] MEDS ORDERED: cefTRIAXone SODIUM 1 GM VIAL ONE (08:33)
[2019-03-05] MEDS ORDERED: DEXTROSE 5%-WATER - 50 ML IVPB ONE (08:33)
[2019-03-05] MEDS: DOXYCYCLINE INJECTION 100 MG in DEXTROSE 5%-WATER - 100 ML IVPB SCH ×2 (09:16→21:43)
[2019-03-05] MEDS: CEFTRIAXONE 1 GM in DEXTROSE 5%-WATER - 50 ML IVPB SCH (09:16)
[2019-03-05] MEDS: PANTOPRAZOLE SODIUM 40 MG VIAL IVPUSH SCH (09:17)
[2019-03-05] MEDS: amLODIPine BESYLATE 10 MG TABLET (FP) PO SCH (09:18)
[2019-03-05] MEDS: HEPARIN NA (PORCINE) 5,000 UNITS/ML 1ML VIAL SQ SCH ×2 (09:21→21:42)
--- NOTE | 2019-03-05 18:02 | PN ---
Progress Note, Physician Chief Complaint: no sob , no cp , doing a lot better , - Current Medication List Current Medications: Active Medications Acetaminophen (Ofirmev Injection -) 600 mg IVPB Q6H PRN PRN Reason: FEVER Last Admin: 02/27/19 00:20 Dose: 600 mg Albuterol/Ipratropium (Duoneb -) 1 amp NEB RQID [facility] Last Admin: 03/05/19 15:51 Dose: 1 amp Amlodipine Besylate (Norvasc -) 10 mg PO DAILY [facility] Last Admin: 03/05/19 09:18 Dose: 10 mg Chlorhexidine Gluconate (Hibiclens For Decolonization -) 1 applic TP HS [facility] Last Admin: 03/04/19 21:22 Dose: 1 applic Heparin Sodium (Porcine) (Heparin -) 5,000 unit SQ BID [facility] Last Admin: 03/05/19 09:21 Dose: 5,000 unit Ceftriaxone Sodium 1 gm/ (Dextrose) 50 mls @ 200 mls/hr IVPB DAILY [facility]; Protocol Last Admin: 03/05/19 09:16 Dose: 200 mls/hr Doxycycline Hyclate 100 mg/ (Dextrose) 100 mls @ 100 mls/hr IVPB BID [facility] Last Admin: 03/05/19 09:16 Dose: 100 mls/hr Methylprednisolone Sodium Succinate (Solu-Medrol -) 60 mg IVPB Q8H [facility] Last Admin: 03/05/19 15:00 Dose: 60 mg Morphine Sulfate (Morphine Sulfate) 2 mg IVPUSH Q4H PRN PRN Reason: PAIN LEVEL 1-5 Last Admin: 03/03/19 21:47 Dose: 2 mg Pantoprazole Sodium (Protonix Iv) 40 mg IVPUSH DAILY [facility] Last Admin: 03/05/19 09:17 Dose: 40 mg - Objective Vital Signs: Vital Signs Temperature 98.6 F 03/05/19 14:00 Pulse Rate 93 H 03/05/19 14:00 Respiratory Rate 17 03/05/19 14:00 Blood Pressure 137/82 03/05/19 14:00 O2 Sat by Pulse Oximetry (%) 93 L 03/05/19 15:51 Constitutional: Yes: Well Nourished Eyes: Yes: WNL HENT: Yes: WNL Neck: Yes: Supple Cardiovascular: Yes: Regular Rate and Rhythm Respiratory: Yes: Regular, CTA Bilaterally Gastrointestinal: Yes: WNL, Normal Bowel Sounds Extremities: Yes: WNL Edema: No Labs: CBC, BMP 03/05/19 05:10 03/05/19 05:10 INR, PTT INR 1.90 (0.83-1.09) H 02/27/19 05:45 Impression/Plan Impression/Plan: Pulm: Acute hypoxic hypercapnic resp failure likley 2/2 COPD exacerbation -likely caused by pneumonia, COPD exacerbation, CXR with left base infiltrate, right base effusion -continue inhalers, -continue Solu-medrol 60 mg Q8H -ID consulted, will f/u recommendations -Maintain O2 Sat > 90% -extubated and now on BIPAP. monitor closely. will try HFNC today w/ BIPAP at night and when necessary. pt counselled on not using BIPAP while eating ID: Septic shock 2/2 PNA - continue Ceftriaxone/doxycycline - Cardio : HTN -continue Norvasc 10 mg daily -ECHO : EF 60-65%, Pulm a systolic pressure ~42 - maintain MAP > 65 DVT PPX:Heparin sq Visit type - Emergency Visit Emergency Visit: No - New Patient This patient is new to me today: Yes Date on this admission: 03/05/19 - Critical Care Critical Care patient: Yes Total Critical Care Time (in minutes): 30 Critical Care Statement: The care of this patient involved high complexity decision making to prevent further life threatening deterioration of the patient 's condition and/or to evaluate & treat vital organ system(s) failure or risk of failure. - Discharge Referral Referred to [facility] No
[2019-03-05] MEDS: CHLORHEXIDINE GLUCONATE 4% CLEANSER FOR DECOLONIZATION TP SCH (21:42)
[2019-03-06] MEDS: methylPREDNISolone NA SUCC 40 MG/1 ML VIAL IVPB SCH ×3 (05:53→21:45)
[2019-03-06 06:08] LABS: HEMATOCRIT 29.2 % (32.4-45.2); HEMOGLOBIN 9.5 GM/dL (10.7-15.3); MCH 26.1 pg (25.7-33.7); MCHC 32.6 g/dl (32.0-36.0); MEAN CELL VOLUME 80.1 fl (80-96); MEAN PLT VOLUME 7.9 fl (7.5-11.1); PLATELET COUNT 218 K/MM3 (134-434); RBC 3.65 M/mm3 (3.60-5.2); RDW 16.5 % (11.6-15.6); WHITE BLOOD COUNT 17.2 K/mm3 (4.0-10.0)
[2019-03-06 06:32] LABS: ALBUMIN 2.7 g/dl (3.4-5.0); BILIRUBIN,TOTAL 0.4 mg/dL (0.2-1); BLOOD UREA NITROGEN 43.2 mg/dL (7-18); CREATININE 0.9 mg/dL (0.55-1.3); POTASSIUM 3.8 mmol/L (3.5-5.1); TOT PROT 5.6 g/dl (6.4-8.2)
[2019-03-06] MEDS: ALBUTEROL SO4 2.5/IPRATROPIUM 0.5 INH SOL 3 ML VIAL.NEB. NEB SCH ×4 (08:00→20:10)
--- NOTE | 2019-03-06 08:31 | PN ---
Progress Note (short form) - Note Progress Note: Pulm/CCM Note Progress Note: PULM/CCM Patient seen and examined in the ICU. Remains extubated.Tolerating HFNC by day and NIPPV by night. Acute uptrend in WBC. Active Medications Acetaminophen (Ofirmev Injection -) 600 mg IVPB Q6H PRN PRN Reason: FEVER Last Admin: 02/27/19 00:20 Dose: 600 mg Albuterol/Ipratropium (Duoneb -) 1 amp NEB RQID [facility] Last Admin: 03/06/19 08:00 Dose: 1 amp Amlodipine Besylate (Norvasc -) 10 mg PO DAILY [facility] Last Admin: 03/05/19 09:18 Dose: 10 mg Chlorhexidine Gluconate (Hibiclens For Decolonization -) 1 applic TP HS [facility] Last Admin: 03/05/19 21:42 Dose: 1 applic Heparin Sodium (Porcine) (Heparin -) 5,000 unit SQ BID [facility] Last Admin: 03/06/19 10:00 Dose: 5,000 unit Ceftriaxone Sodium 1 gm/ (Dextrose) 50 mls @ 200 mls/hr IVPB DAILY [facility]; Protocol Last Admin: 03/06/19 10:01 Dose: 200 mls/hr Methylprednisolone Sodium Succinate (Solu-Medrol -) 60 mg IVPB Q8H [facility] Last Admin: 03/06/19 05:53 Dose: 60 mg Morphine Sulfate (Morphine Sulfate) 2 mg IVPUSH Q4H PRN PRN Reason: PAIN LEVEL 1-5 Last Admin: 03/03/19 21:47 Dose: 2 mg Pantoprazole Sodium (Protonix Iv) 40 mg IVPUSH DAILY [facility] Last Admin: 03/06/19 10:00 Dose: 40 mg Vital Signs Period Temp Pulse Resp BP Sys/Sawyer Pulse Ox Last 24 Hr 97.7 F-98.6 F 81-108 15-22 137-155/68-106 93-99 Intake & Output 03/03/19 03/04/19 03/05/19 03/06/19 23:59 23:59 23:59 23:59 Intake Total 318 500 610 300 Output Total 1000 1200 2200 300 Balance -682 -700 -1590 0 Weight 53.841 kg 51.891 kg 51.891 kg 48.081 kg Microbiology 02/26/19 12:00 Blood - Peripheral Venous Blood Culture - Final NO GROWTH AFTER 5 DAYS INCUBATION 02/26/19 12:00 Blood - Peripheral Venous Blood Culture - Final NO GROWTH AFTER 5 DAYS INCUBATION 02/27/19 00:20 Sputum - Endotrachea Suction/Ventilator Gram Stain - Final 02/27/19 00:20 Sputum - Endotrachea Suction/Ventilator Sputum Culture - Final NORMAL RESPIRATORY ABBIE 02/27/19 11:00 Urine For Antigen Detection Legionella Antigen - Final 02/27/19 11:00 Urine For Antigen Detection Streptococcus pneumoniae Antigen (M - Final 02/26/19 13:40 Urine - Urine - Catheterized Urine Culture - Final NO GROWTH OBTAINED Gen: awake and alert - extubated on HFNC throughout the day - nocturnal NIPPV Heart: nml S1 S2, RR, unable to appreciate any G/M/R Lung: Diminished Abd: + BS, S/S N/T N/D X4Q Ext: + pulses, WWPX4, no edema CBC, BMP 03/06/19 05:55 03/06/19 05:07 CXR 03/04: Status post extubation with improving aeration bilaterally ASSESSMENT: Acute on Chronic Hypoxic and Hypercapneic Respiratory Failure Pneumonia Septic Shock Lactic Acidosis Acute COPD Exacerbation h/o Lung Ca h/o Breast Ca HTN PLAN: - [place] Culture - Rest off NIPPV w/ HFO as tolerated - Trial wean HiFlo to NC - Must use nocturnal NIPPV - O2 to keep Spo2 >90% - Nebs - Cont ABX - Consider escalating ABX based on cultures - Off pressors, maintain MAP >65 - Monitor urine output, creatinine - Slow Steroid Taper - DVT/GI prophylaxis - Clear for Floor [facility] ICU PULM/CCM [id number]
[2019-03-06] MEDS ORDERED: PT OWN MED DRAWER 7, Y5N ONE (09:09)
[2019-03-06] MEDS ORDERED: cefTRIAXone SODIUM 1 GM VIAL ONE (09:09)
[2019-03-06] MEDS ORDERED: DEXTROSE 5%-WATER - 50 ML IVPB ONE (09:10)
--- NOTE | 2019-03-06 09:56 | PN ---
Progress Note, Physician Chief Complaint: no sob , no cp , doing a lot better , - Current Medication List Current Medications: Active Medications Acetaminophen (Ofirmev Injection -) 600 mg IVPB Q6H PRN PRN Reason: FEVER Last Admin: 02/27/19 00:20 Dose: 600 mg Albuterol/Ipratropium (Duoneb -) 1 amp NEB RQID [facility] Last Admin: 03/05/19 20:10 Dose: 1 amp Amlodipine Besylate (Norvasc -) 10 mg PO DAILY [facility] Last Admin: 03/05/19 09:18 Dose: 10 mg Chlorhexidine Gluconate (Hibiclens For Decolonization -) 1 applic TP HS [facility] Last Admin: 03/05/19 21:42 Dose: 1 applic Heparin Sodium (Porcine) (Heparin -) 5,000 unit SQ BID [facility] Last Admin: 03/05/19 21:42 Dose: 5,000 unit Ceftriaxone Sodium 1 gm/ (Dextrose) 50 mls @ 200 mls/hr IVPB DAILY [facility]; Protocol Last Admin: 03/05/19 09:16 Dose: 200 mls/hr Doxycycline Hyclate 100 mg/ (Dextrose) 100 mls @ 100 mls/hr IVPB BID [facility] Last Admin: 03/05/19 21:43 Dose: 100 mls/hr Methylprednisolone Sodium Succinate (Solu-Medrol -) 60 mg IVPB Q8H [facility] Last Admin: 03/06/19 05:53 Dose: 60 mg Morphine Sulfate (Morphine Sulfate) 2 mg IVPUSH Q4H PRN PRN Reason: PAIN LEVEL 1-5 Last Admin: 03/03/19 21:47 Dose: 2 mg Pantoprazole Sodium (Protonix Iv) 40 mg IVPUSH DAILY [facility] Last Admin: 03/05/19 09:17 Dose: 40 mg - Objective Vital Signs: Vital Signs Temperature 98.1 F 03/06/19 06:00 Pulse Rate 86 03/06/19 09:18 Respiratory Rate 15 03/06/19 09:18 Blood Pressure 142/106 H 03/06/19 09:18 O2 Sat by Pulse Oximetry (%) 99 03/06/19 08:08 Constitutional: Yes: Well Nourished Eyes: Yes: WNL HENT: Yes: WNL, Normocephalic Neck: Yes: Supple, Trachea Midline Cardiovascular: Yes: WNL, Regular Rate and Rhythm Respiratory: Yes: WNL, Regular, CTA Bilaterally Gastrointestinal: Yes: WNL, Normal Bowel Sounds Musculoskeletal: Yes: WNL Extremities: Yes: WNL Edema: No Integumentary: Yes: WNL Neurological: Yes: WNL, Alert, Oriented ...Motor Strength: WNL Psychiatric: Yes: WNL Labs: CBC, BMP 03/06/19 05:55 03/06/19 05:07 INR, PTT INR 1.90 (0.83-1.09) H 02/27/19 05:45 Impression/Plan Impression/Plan: Pulm: Acute hypoxic hypercapnic resp failure sergio 2/2 COPD exacerbation appreciated the pulmonoly fu, - Trial wean HiFlo to NC - Must use nocturnal NIPPV - O2 to keep Spo2 >90% - Nebs - Cont ABX - Slow Steroid Taper - DVT/GI prophylaxis - Clear for Floor - continue Ceftriaxone/doxycycline will transfer to med surg, - Cardio : HTN -continue Norvasc 10 mg daily -ECHO : EF 60-65%, Pulm a systolic pressure ~42 - maintain MAP > 65 DVT PPX:Heparin sq Visit type - Emergency Visit Emergency Visit: No - New Patient This patient is new to me today: No - Critical Care Critical Care patient: Yes Total Critical Care Time (in minutes): 60 Critical Care Statement: The care of this patient involved high complexity decision making to prevent further life threatening deterioration of the patient 's condition and/or to evaluate & treat vital organ system(s) failure or risk of failure. - Discharge Referral Referred to [facility] Med [facility] No
[2019-03-06] MEDS: HEPARIN NA (PORCINE) 5,000 UNITS/ML 1ML VIAL SQ SCH ×2 (10:00→21:38)
[2019-03-06] MEDS: PANTOPRAZOLE SODIUM 40 MG VIAL IVPUSH SCH (10:00)
[2019-03-06] MEDS: CEFTRIAXONE 1 GM in DEXTROSE 5%-WATER - 50 ML IVPB SCH (10:01)
[2019-03-06] MEDS: amLODIPine BESYLATE 10 MG TABLET (FP) PO SCH (12:56)
[2019-03-06] MEDS ORDERED: ACETAMINOPHEN 325 MG TABLET (FP) PO PRN (18:59)
[2019-03-06] MEDS: QUEtiapine FUMARATE 50 MG TABLET PO SCH (21:38)
[2019-03-06] MEDS: CHLORHEXIDINE GLUCONATE 4% CLEANSER FOR DECOLONIZATION TP SCH (21:38)
[2019-03-07] MEDS: methylPREDNISolone NA SUCC 40 MG/1 ML VIAL IVPB SCH ×3 (05:57→22:03)
--- NOTE | 2019-03-07 05:57 | PN ---
Progress Note (short form) - Note Progress Note: HPI: No notable events over the weekend. Weaning from HFNC to NC. No acute complaints and no telemetry alarms noted. PE: Gen: NAD, awake, alert HEENT: NC/AT, JOSE, MMM Neck: No JVD LUNG: Diminished breath sounds at bases, but overall improved. No wheezes. NIPPV Heart: RRR no murmurs Abd: soft, Nt/ND Ext: no edema Microbiology 02/26/19 12:00 Blood - Peripheral Venous Blood Culture - Final NO GROWTH AFTER 5 DAYS INCUBATION 02/26/19 12:00 Blood - Peripheral Venous Blood Culture - Final NO GROWTH AFTER 5 DAYS INCUBATION 02/27/19 00:20 Sputum - Endotrachea Suction/Ventilator Gram Stain - Final 02/27/19 00:20 Sputum - Endotrachea Suction/Ventilator Sputum Culture - Final NORMAL RESPIRATORY ABBIE 02/27/19 11:00 Urine For Antigen Detection Legionella Antigen - Final 02/27/19 11:00 Urine For Antigen Detection Streptococcus pneumoniae Antigen (M - Final 02/26/19 13:40 Urine - Urine - Catheterized Urine Culture - Final NO GROWTH OBTAINED Active Medications Acetaminophen (Tylenol -) 650 mg PO Q4H PRN PRN Reason: PAIN LEVEL 1-5 Last Admin: 03/06/19 21:38 Dose: 650 mg Amlodipine Besylate (Norvasc -) 10 mg PO DAILY [facility] Last Admin: 03/06/19 12:56 Dose: 10 mg Chlorhexidine Gluconate (Hibiclens For Decolonization -) 1 applic TP HS [facility] Last Admin: 03/06/19 21:38 Dose: 1 applic Heparin Sodium (Porcine) (Heparin -) 5,000 unit SQ BID [facility] Last Admin: 03/06/19 21:38 Dose: 5,000 unit Ceftriaxone Sodium 1 gm/ (Dextrose) 50 mls @ 200 mls/hr IVPB DAILY [facility]; Protocol Last Admin: 03/06/19 10:01 Dose: 200 mls/hr Methylprednisolone Sodium Succinate (Solu-Medrol -) 60 mg IVPB Q8H [facility] Last Admin: 03/07/19 05:57 Dose: 60 mg Pantoprazole Sodium (Protonix -) 40 mg PO DAILY [facility] Quetiapine Fumarate (Seroquel -) 50 mg PO HS [facility] Last Admin: 03/06/19 21:38 Dose: 50 mg IMAGING: Echocardiogram: Interpretation Summary The left ventricle is normal in size. Left ventricular systolic function is normal. Ejection Fraction = 60-65%. No regional wall motion abnormalities noted. The right ventricular systolic function is normal. The left atrial size is normal. Right atrial size is normal. There is mild mitral annular calcification. There is mild mitral regurgitation. There is mild to moderate tricuspid regurgitation. Pulmonary artery systolic pressure is at least 42 mmHg is RA pressure is assumed 3 mmHg There is mild aortic sclerosis. There is no pericardial effusion. A/P: Acute on chronic hypoxic hypercapenic respiratory failure COPD Exacerbation Hypertensive Urgency Septic shock 2/2 to pneumonia (resolved) Lactic acidosis (resolved) Acute anemia (improved) --Titrate off HFNC to NC; NIPPV at night (15//RR12) --Maintain SpO2 >90% --Rocephin 1gm qdaily (day 9); will discuss about discontinuation due to lack of infectious signs --Taper corticosteroids (currently Medrol 60mg q8h IVP) --Echocardiogram reviewed as above --Continue Norvasc 10mg qdaily --Repeat BP manual today as trend as been overall controlled --If remains elevated will have to add second agent FEN: Fluids: none; encourage PO intake Electrolyte abnormalities: HyperNa, HyperCl (downtrending) Nutrition: Soft diet (sodium controlled) PPX: DVT - Heparin BID SQ GI - protonix 40mg PO Dispo: Transfer out to / Case discussed with Jose C Conway DO - IM PGY-3 <Wilber Conway - Last Filed: 03/07/19 08:04> - Note Progress Note: Seen and examined; please see resident note for further historical information. I personally verified all mariscal historical information and exam findings. Personally interpreted all imaging and diagnostics and reviewed appropriate consults. I reviewed all labs and vital signs as per resident note and EMR as documented. I agree with the above assessment and plan unless supplemented by myself in the following. Weaning from high flow continues and can still talk in complete sentences. She has no new complaints. Cough has improved from over the weekend, no excessive secretions, hemodynamics are stable. Appreciate expert consults. 10 sys ROS done and is negative aside from HPI VS, labs, imaging reviewed NAD, AAO, resting in bed NC AT EOMI PERRLA Neck supple, trach ML, no LN HR wnl, s1/2 Lungs CTAB, w/ sym exp NT ND +BS Skin without rashes or breakdown CN2-12 wnl, no fnd Normal mood, appropriate behavior Echo reviewed; lvef wnl A/P: -Acute on chronic mixed respiratory failure requiring mechanical ventillation; s /p extubation now weaning from High Flow -Septic Shock secondary to pneumococcal pneumonia, weaned from NE ggt, monitor -Sinus Bradycardia, consider CV consult but will first address with ICU team. No BB, etc -Elevated BNP -Hx Lung cancer -Hx COPD on home O2, PFTs unknown -Septic shock vs. hypotension 2/2 induction in the setting of respiratory failure-on broad spectrum and w/o fever, pending ID consult -Hypoalbuminemia -HypooMg -HyperK -Hx Gastric CA Agree with resident note; we will continue to wean her from NIMV as tolerated and transfer to regular medical floor when able She has severe COPD underlying this and very poor insight-she informed me that her continues to smoke around her which is a likely trigger for her symptoms. Will need PFTs and pulmonary rehab on DC due to aformentioned. 45 minutes spent in the care of this patient. <Eric Woodall - Last Filed: 03/09/19 13:27>
[2019-03-07 07:18] LABS: BASO % 0.3 % (0-2.0); EOS % 0.1 % (0-4.5); HEMOGLOBIN 9.8 GM/dL (10.7-15.3); LYMPH % 1.4 % (8-40); MCH 26.1 pg (25.7-33.7); MCHC 32.6 g/dl (32.0-36.0); MEAN CELL VOLUME 80.1 fl (80-96); MEAN PLT VOLUME 7.8 fl (7.5-11.1); NEUT % 96.2 % (42.8-82.8); PLATELET COUNT 229 K/MM3 (134-434); RBC 3.75 M/mm3 (3.60-5.2); RDW 16.2 % (11.6-15.6); WHITE BLOOD COUNT 19.9 K/mm3 (4.0-10.0)
[2019-03-07] MEDS ORDERED: ALBUTEROL SO4 2.5/IPRATROPIUM 0.5 INH SOL 3 ML VIAL.NEB. NEB ONE (07:23)
[2019-03-07] MEDS: ALBUTEROL SO4 2.5/IPRATROPIUM 0.5 INH SOL 3 ML VIAL.NEB. NEB SCH ×4 (07:30→20:58)
[2019-03-07] MEDS ORDERED: cefTRIAXone SODIUM 1 GM VIAL ONE (07:46)
[2019-03-07] MEDS ORDERED: DEXTROSE 5%-WATER - 50 ML IVPB ONE (07:46)
[2019-03-07 07:56] LABS: ALBUMIN 2.8 g/dl (3.4-5.0); BILIRUBIN,TOTAL 0.4 mg/dL (0.2-1); BLOOD UREA NITROGEN 39.8 mg/dL (7-18); CALCIUM 8.7 mg/dL (8.5-10.1); CREATININE 0.8 mg/dL (0.55-1.3); POTASSIUM 4.2 mmol/L (3.5-5.1); TOT PROT 5.8 g/dl (6.4-8.2)
--- NOTE | 2019-03-07 08:49 | PN ---
Physical Exam: SUBJECTIVE: Patient seen and examined. No acute events overnight. Breathing easier per patient. Tolerated NiPPV overnight. No chest pain, SOB, continued intermittent cough OBJECTIVE: Vital Signs Period Temp Pulse Resp BP Sys/Sawyer Pulse Ox Last 24 Hr 98.5 F-98.7 F 77-107 16-22 107-158/61-99 95-98 GENERAL: The patient is awake, alert, and fully oriented, in no acute distress. HEAD: Normal with no signs of trauma. NECK: Trachea midline, CVC in place LUNGS: Reduced ailyn breath sounds, ailyn crackles, no wheezes, no accessory muscle use. HEART: Regular rate and rhythm, S1, S2 without murmur, rub or gallop. ABDOMEN: Soft, nontender, nondistended, normoactive bowel sounds, no guarding, no rebound, no organomegaly no masses. EXTREMITIES: 2+ pulses, warm, well-perfused, no edema. PSYCH: Normal mood, normal affect. Laboratory Results - last 24 hr 03/07/19 03/07/19 03/07/19 05:45 05:45 07:00 WBC Cancelled 19.9 H Corrected WBC (auto) Cancelled RBC Cancelled 3.75 Hgb Cancelled 9.8 L Hct Cancelled 30.0 L MCV Cancelled 80.1 MCH Cancelled 26.1 MCHC Cancelled 32.6 RDW Cancelled 16.2 H Plt Count Cancelled 229 MPV Cancelled 7.8 Absolute Neuts (auto) Cancelled 19.2 H Neutrophils % Cancelled 96.2 H Lymphocytes % Cancelled 1.4 L D Monocytes % Cancelled 2.0 L Eosinophils % Cancelled 0.1 D Basophils % Cancelled 0.3 Nucleated RBC % Cancelled 0 Platelet Estimate Cancelled Platelet Comment Cancelled Sodium Cancelled Potassium Cancelled Chloride Cancelled Carbon Dioxide Cancelled Anion Gap Cancelled BUN Cancelled Creatinine Cancelled Est GFR (CKD-EPI)AfAm Cancelled Est GFR (CKD-EPI)NonAf Cancelled Random Glucose Cancelled Calcium Cancelled Total Bilirubin Cancelled AST Cancelled ALT Cancelled Alkaline Phosphatase Cancelled Total Protein Cancelled Albumin Cancelled 03/07/19 07:00 WBC Corrected WBC (auto) RBC Hgb Hct MCV MCH MCHC RDW Plt Count MPV Absolute Neuts (auto) Neutrophils % Lymphocytes % Monocytes % Eosinophils % Basophils % Nucleated RBC % Platelet Estimate Platelet Comment Sodium 146 H Potassium 4.2 Chloride 109 H Carbon Dioxide 33 H Anion Gap 5 L BUN 39.8 H Creatinine 0.8 Est GFR (CKD-EPI)AfAm 88.42 Est GFR (CKD-EPI)NonAf 76.29 Random Glucose 117 H Calcium 8.7 Total Bilirubin 0.4 AST 13 L ALT 12 L Alkaline Phosphatase 53 Total Protein 5.8 L Albumin 2.8 L Active Medications Generic Name Dose Route Start Last Admin Trade Name Freq PRN Reason Stop Dose Admin Acetaminophen 650 mg 03/06/19 18:59 03/06/19 21:38 Tylenol - PO 650 mg Q4H PRN Administration PAIN LEVEL 1-5 Albuterol/Ipratropium 1 amp 03/07/19 08:00 03/07/19 07:30 Duoneb - NEB 1 amp RQID [facility] Administration Amlodipine Besylate 10 mg 03/04/19 08:07 03/06/19 12:56 Norvasc - PO 10 mg DAILY [facility] Administration Chlorhexidine Gluconate 1 applic 02/26/19 22:00 03/06/19 21:38 Hibiclens For Decolonization - TP 1 applic HS [facility] Administration Heparin Sodium (Porcine) 5,000 unit 02/26/19 22:00 03/06/19 21:38 Heparin - SQ 5,000 unit BID [facility] Administration Ceftriaxone Sodium 1 gm/ 50 mls @ 200 mls/hr 02/26/19 15:00 03/06/19 10:01 Dextrose IVPB 200 mls/hr DAILY [facility] Administration Protocol Methylprednisolone Sodium Succinate 60 mg 02/26/19 14:45 03/07/19 05:57 Solu-Medrol - IVPB 60 mg Q8H [facility] Administration Pantoprazole Sodium 40 mg 03/07/19 10:00 Protonix - PO DAILY [facility] Quetiapine Fumarate 50 mg 03/06/19 22:00 03/06/19 21:38 Seroquel - PO 50 mg HS [facility] Administration ASSESSMENT/PLAN: Kate Montelongo is a 68yF w PMHx COPD (2L baseline), L Lung CA s/p resection, R breast CA s/p radiation, presenting w SOB d/t COPD and PNA Cardiac - CVC in since 02/26 - Get peripheral IV access, remove CVC - HTN - on Norvasc, maintain MAP >65, off pressors - heparin ppx Pulm - Acute on Chronic Hypoxic and Hypercapneic Respiratory Failure 2/2 COPD, PNA. On HFNC 40L / 35% FiO2 - day HFNC 40L / 35% FiO2, night NiPPV - Paged respiratory to wean HiFlo as tolerated to NC, last settings 30L/min, 35 % O2, keep O2sat > 90% - slow solumedrol taper - continue ceftriaxone Neuro - AOx3, no active issues GI - protonix ppx - I/O ID - Leukocystosis - uptrending from 17.2 to 19.9. Likely d/t steroid use without signs of infection. Monitor FEN - Fluids: none; encourage PO intake - Electrolyte abnormalities: hyperNa, hyperCl - Nutrition: Soft diet (sodium controlled) PPX DVT - Heparin BID GI - 40 protonix qD Dinesh MANZANO Resident PGY1 Discussed w attending Dr Harris Visit type - Emergency Visit Emergency Visit: Yes ED Registration Date: 02/26/19 Care time: The patient presented to the Emergency Department on the above date and was hospitalized for further evaluation of their emergent condition. - New Patient This patient is new to me today: Yes Date on this admission: 03/07/19 - Critical Care Critical Care patient: Yes Total Critical Care Time (in minutes): 35 Critical Care Statement: The care of this patient involved high complexity decision making to prevent further life threatening deterioration of the patient 's condition and/or to evaluate & treat vital organ system(s) failure or risk of failure. ATTENDING PHYSICIAN STATEMENT I saw and evaluated the patient. I reviewed the resident's note and discussed the case with the resident. I agree with the resident's findings and plan as documented. SUBJECTIVE: OBJECTIVE: ASSESSMENT AND PLAN:
[2019-03-07] MEDS: HEPARIN NA (PORCINE) 5,000 UNITS/ML 1ML VIAL SQ SCH ×2 (10:47→22:02)
[2019-03-07] MEDS: PANTOPRAZOLE 40 MG TABLET (FP) PO SCH (10:47)
[2019-03-07] MEDS: amLODIPine BESYLATE 10 MG TABLET (FP) PO SCH (10:47)
[2019-03-07] MEDS: CEFTRIAXONE 1 GM in DEXTROSE 5%-WATER - 50 ML IVPB SCH (10:48)
--- NOTE | 2019-03-07 11:25 | PN ---
Teaching Attending Note Name of Resident: Dinesh Saeed ATTENDING PHYSICIAN STATEMENT I saw and evaluated the patient. I reviewed the resident's note and discussed the case with the resident. I agree with the resident's findings and plan as documented. SUBJECTIVE: Patient seen and examined in the ICU. Remains extubated. Tolerating HFNC (35%, 30L) by day and NIPPV by night. Reports that her breathing is better but not at baseline. Some dry cough. No hemoptysis. Intake & Output 03/04/19 03/05/19 03/06/19 03/07/19 23:59 23:59 23:59 23:59 Intake Total 500 610 760 Output Total 1200 2200 900 1500 Balance -700 -1590 -140 -1500 Weight 114 lb 6.4 oz 114 lb 6.4 oz 106 lb 106 lb Last Vital Signs Temp Pulse Resp BP Pulse Ox 98.6 F 91 H 22 H 149/83 98 03/07/19 06:00 03/07/19 09:17 03/07/19 09:00 03/07/19 08:00 03/07/19 09:00 Active Medications Acetaminophen (Tylenol -) 650 mg PO Q4H PRN PRN Reason: PAIN LEVEL 1-5 Last Admin: 03/06/19 21:38 Dose: 650 mg Albuterol/Ipratropium (Duoneb -) 1 amp NEB RQID [facility] Last Admin: 03/07/19 07:30 Dose: 1 amp Amlodipine Besylate (Norvasc -) 10 mg PO DAILY [facility] Last Admin: 03/07/19 10:47 Dose: 10 mg Chlorhexidine Gluconate (Hibiclens For Decolonization -) 1 applic TP HS [facility] Last Admin: 03/06/19 21:38 Dose: 1 applic Heparin Sodium (Porcine) (Heparin -) 5,000 unit SQ BID [facility] Last Admin: 03/07/19 10:47 Dose: 5,000 unit Ceftriaxone Sodium 1 gm/ (Dextrose) 50 mls @ 200 mls/hr IVPB DAILY [facility]; Protocol Last Admin: 03/07/19 10:48 Dose: 200 mls/hr Methylprednisolone Sodium Succinate (Solu-Medrol -) 60 mg IVPB Q8H [facility] Last Admin: 03/07/19 05:57 Dose: 60 mg Pantoprazole Sodium (Protonix -) 40 mg PO DAILY [facility] Last Admin: 03/07/19 10:47 Dose: 40 mg Quetiapine Fumarate (Seroquel -) 50 mg PO HS [facility] Last Admin: 03/06/19 21:38 Dose: 50 mg Gen: awake and alert, NAD on HFOT Heart: nml S1 S2, RR Lung: Diminished throughout, no active wheezing Abd: + BS, S/S N/T N/D X4Q Ext: + pulses, WWPX4, no edema MATHEMATICAL ENGINEER: awake and alert, non-focal Laboratory Results - last 24 hr 03/07/19 03/07/19 03/07/19 05:45 05:45 07:00 WBC Cancelled 19.9 H Corrected WBC (auto) Cancelled RBC Cancelled 3.75 Hgb Cancelled 9.8 L Hct Cancelled 30.0 L MCV Cancelled 80.1 MCH Cancelled 26.1 MCHC Cancelled 32.6 RDW Cancelled 16.2 H Plt Count Cancelled 229 MPV Cancelled 7.8 Absolute Neuts (auto) Cancelled 19.2 H Neutrophils % Cancelled 96.2 H Lymphocytes % Cancelled 1.4 L D Monocytes % Cancelled 2.0 L Eosinophils % Cancelled 0.1 D Basophils % Cancelled 0.3 Nucleated RBC % Cancelled 0 Platelet Estimate Cancelled Platelet Comment Cancelled Sodium Cancelled Potassium Cancelled Chloride Cancelled Carbon Dioxide Cancelled Anion Gap Cancelled BUN Cancelled Creatinine Cancelled Est GFR (CKD-EPI)AfAm Cancelled Est GFR (CKD-EPI)NonAf Cancelled Random Glucose Cancelled Calcium Cancelled Total Bilirubin Cancelled AST Cancelled ALT Cancelled Alkaline Phosphatase Cancelled Total Protein Cancelled Albumin Cancelled 03/07/19 07:00 WBC Corrected WBC (auto) RBC Hgb Hct MCV MCH MCHC RDW Plt Count MPV Absolute Neuts (auto) Neutrophils % Lymphocytes % Monocytes % Eosinophils % Basophils % Nucleated RBC % Platelet Estimate Platelet Comment Sodium 146 H Potassium 4.2 Chloride 109 H Carbon Dioxide 33 H Anion Gap 5 L BUN 39.8 H Creatinine 0.8 Est GFR (CKD-EPI)AfAm 88.42 Est GFR (CKD-EPI)NonAf 76.29 Random Glucose 117 H Calcium 8.7 Total Bilirubin 0.4 AST 13 L ALT 12 L Alkaline Phosphatase 53 Total Protein 5.8 L Albumin 2.8 L ASSESSMENT: Acute on Chronic Hypoxic and Hypercapneic Respiratory Failure Pneumonia Septic Shock Lactic Acidosis Acute COPD Exacerbation h/o Lung Ca h/o Breast Ca HTN PLAN: - Wean Medrol - Wean HFOT - NIPPV support PRN and QHS - BD TX - Rocephin - Follow WBC: suspect due to steroids - Obtain peripheral access and DC TLC - Monitor urine output, creatinine - DVT/GI prophylaxis - 4W/ 4S once HFOT Dr Harris
[2019-03-07 14:17] LABS: ANISOCYTOSIS 2+; MACROCYTOSIS 0; PLATELET ESTIMATE NORMAL
[2019-03-07] MEDS: CHLORHEXIDINE GLUCONATE 4% CLEANSER FOR DECOLONIZATION TP SCH (22:03)
[2019-03-07] MEDS: QUEtiapine FUMARATE 50 MG TABLET PO SCH (22:03)
[2019-03-08] MEDS: methylPREDNISolone NA SUCC 40 MG/1 ML VIAL IVPB SCH ×3 (05:37→21:29)
--- NOTE | 2019-03-08 06:37 | PN ---
Progress Note (short form) - Note Progress Note: HPI: No acute events overnight. No telemetry events noted Vital Signs Temperature 98 F 03/08/19 06:00 Pulse Rate 95 H 03/08/19 06:00 Respiratory Rate 16 03/08/19 06:00 Blood Pressure 153/87 03/08/19 06:00 O2 Sat by Pulse Oximetry (%) 99 03/08/19 04:30 PE: Gen: NAD, awake, alert HEENT: NC/AT, JOSE, MMM Neck: No JVD LUNG: Bilateral crackles at the base improved; better aeration. On NC this aM Heart: RRR no murmurs Abd: soft, Nt/ND Ext: no edema Microbiology 02/26/19 12:00 Blood - Peripheral Venous Blood Culture - Final NO GROWTH AFTER 5 DAYS INCUBATION 02/26/19 12:00 Blood - Peripheral Venous Blood Culture - Final NO GROWTH AFTER 5 DAYS INCUBATION 02/27/19 00:20 Sputum - Endotrachea Suction/Ventilator Gram Stain - Final 02/27/19 00:20 Sputum - Endotrachea Suction/Ventilator Sputum Culture - Final NORMAL RESPIRATORY ABBIE 02/27/19 11:00 Urine For Antigen Detection Legionella Antigen - Final 02/27/19 11:00 Urine For Antigen Detection Streptococcus pneumoniae Antigen (M - Final 02/26/19 13:40 Urine - Urine - Catheterized Urine Culture - Final NO GROWTH OBTAINED Active Medications Acetaminophen (Tylenol -) 650 mg PO Q4H PRN PRN Reason: PAIN LEVEL 1-5 Last Admin: 03/06/19 21:38 Dose: 650 mg Amlodipine Besylate (Norvasc -) 10 mg PO DAILY [facility] Last Admin: 03/06/19 12:56 Dose: 10 mg Chlorhexidine Gluconate (Hibiclens For Decolonization -) 1 applic TP HS BRIE Last Admin: 03/06/19 21:38 Dose: 1 applic Heparin Sodium (Porcine) (Heparin -) 5,000 unit SQ BID BRIE Last Admin: 03/06/19 21:38 Dose: 5,000 unit Ceftriaxone Sodium 1 gm/ (Dextrose) 50 mls @ 200 mls/hr IVPB DAILY [facility]; Protocol Last Admin: 03/06/19 10:01 Dose: 200 mls/hr Methylprednisolone Sodium Succinate (Solu-Medrol -) 60 mg IVPB Q8H BRIE Last Admin: 03/07/19 05:57 Dose: 60 mg Pantoprazole Sodium (Protonix -) 40 mg PO DAILY BRIE Quetiapine Fumarate (Seroquel -) 50 mg PO HS BRIE Last Admin: 03/06/19 21:38 Dose: 50 mg A/P: Acute on chronic hypoxic hypercapenic respiratory failure COPD Exacerbation Hypertensive Urgency Septic shock 2/2 to pneumonia (resolved) Lactic acidosis (resolved) Acute anemia (improved) --Titrate off HFNC to NC; NIPPV at night (29/09/RR12) --Maintain SpO2 >90% --Discontinue Rocephin today --Taper corticosteroids (currently Medrol 60mg q8h IVP) --Continue Norvasc 10mg qdaily --Continue Seroquel 50mg HS PO FEN: Fluids: none; encourage PO intake Electrolyte abnormalities: None today Nutrition: Soft diet (sodium controlled) PPX: DVT - Heparin BID SQ GI - protonix 40mg PO Dispo: Can transfer to floors if pt okay with NIPPV and NC Case discussed with Jose C Conway, - IM PGY-3 <Wilber Conway - Last Filed: 03/08/19 19:53> - Note Progress Note: Seen and examined; please see resident note for further historical information. I personally verified all mariscal historical information and exam findings. Personally interpreted all imaging and diagnostics and reviewed appropriate consults. I reviewed all labs and vital signs as per resident note and EMR as documented. I agree with the above assessment and plan unless supplemented by myself in the following. Continues to improve; no new complaints. Cough and SOB stated as improved. Still has some issues with weaning. 10 sys ROS done and is negative aside from HPI VS, labs, imaging reviewed NAD, AAO, resting in bed NC AT EOMI PERRLA Neck supple, trach ML, no LN HR wnl, s1/2 Lungs CTAB, w/ sym exp NT ND +BS Skin without rashes or breakdown CN2-12 wnl, no fnd Normal mood, appropriate behavior Echo reviewed; lvef wnl A/P: -Acute on chronic mixed respiratory failure requiring mechanical ventillation; s /p extubation now weaning from High Flow -Septic Shock secondary to pneumococcal pneumonia, weaned from NE ggt, monitor -Sinus Bradycardia, consider CV consult but will first address with ICU team. No BB, etc -Elevated BNP -Hx Lung cancer -Hx COPD on home O2, PFTs unknown -Septic shock vs. hypotension 2/2 induction in the setting of respiratory failure-on broad spectrum and w/o fever, pending ID consult -Hypoalbuminemia -HypooMg -HyperK -Hx Gastric CA Agree with resident note; we will continue to wean her from NIMV as tolerated and transfer to regular medical floor when able She has severe COPD underlying this and very poor insight-she informed me that her continues to smoke around her which is a likely trigger for her symptoms. Will need PFTs and pulmonary rehab on DC due to aformentioned. Continue to wean from steroids and monitor; pulmonary toileting, etc. 45 minutes spent in the care of this patient. <Eric Woodall - Last Filed: 03/09/19 13:28>
[2019-03-08] MEDS: ALBUTEROL SO4 2.5/IPRATROPIUM 0.5 INH SOL 3 ML VIAL.NEB. NEB SCH (08:11)
[2019-03-08] MEDS ORDERED: DEXTROSE 5%-WATER - 50 ML IVPB ONE (09:29)
[2019-03-08] MEDS ORDERED: cefTRIAXone SODIUM 1 GM VIAL ONE (09:29)
[2019-03-08] MEDS: PANTOPRAZOLE 40 MG TABLET (FP) PO SCH (10:13)
[2019-03-08] MEDS: amLODIPine BESYLATE 10 MG TABLET (FP) PO SCH (10:13)
[2019-03-08] MEDS: HEPARIN NA (PORCINE) 5,000 UNITS/ML 1ML VIAL SQ SCH ×2 (10:13→21:28)
[2019-03-08] MEDS: CEFTRIAXONE 1 GM in DEXTROSE 5%-WATER - 50 ML IVPB SCH (10:14)
--- NOTE | 2019-03-08 11:06 | HP ---
CHIEF COMPLAINT: PCP: HISTORY OF PRESENT ILLNESS: ER course was notable for: (1) (2) (3) Recent Travel: PAST MEDICAL HISTORY: PAST SURGICAL HISTORY: Social History: Smoking: Alcohol: Drugs: Allergies No Known Allergies Allergy (Verified 02/26/19 12:12) HOME MEDICATIONS: Home Medications Medication Instructions Recorded Amlodipine Besylate [Norvasc -] 5 mg PO DAILY 05/19/18 Albuterol 0.083% Nebulizer Bhavana 1 amp NEB RQID amp 06/03/18 [Ventolin 0.083% Nebulizer Soln -] Budesonide/Formeterol Fumarate 2 puff IH BID inhaler 06/03/18 [SYMBICORT 160/4.5mcg -] Pantoprazole Sodium [Protonix -] 40 mg PO DAILY tablet.ec 06/03/18 Valacyclovir HCl [Valtrex -] 500 mg PO BID tablet 06/03/18 traZODone HCL [Desyrel -] 50 mg PO HS tablet 06/03/18 REVIEW OF SYSTEMS CONSTITUTIONAL: Absent: fever, chills, diaphoresis, generalized weakness, malaise, loss of appetite, weight change HEENT: Absent: rhinorrhea, nasal congestion, throat pain, throat swelling, difficulty swallowing, mouth swelling, ear pain, eye pain, visual changes CARDIOVASCULAR: Absent: chest pain, syncope, palpitations, irregular heart rate, lightheadedness , peripheral edema RESPIRATORY: Absent: cough, shortness of breath, dyspnea with exertion, orthopnea, wheezing, stridor, hemoptysis GASTROINTESTINAL: Absent: abdominal pain, abdominal distension, nausea, vomiting, diarrhea, constipation, melena, hematochezia GENITOURINARY: Absent: dysuria, frequency, urgency, hesitancy, hematuria, flank pain, genital pain MUSCULOSKELETAL: Absent: myalgia, arthralgia, joint swelling, back pain, neck pain SKIN: Absent: rash, itching, pallor HEMATOLOGIC/IMMUNOLOGIC: Absent: easy bleeding, easy bruising, lymphadenopathy, frequent infections ENDOCRINE: Absent: unexplained weight gain, unexplained weight loss, heat intolerance, cold intolerance NEUROLOGIC: Absent: headache, focal weakness or paresthesias, dizziness, unsteady gait, seizure, mental status changes, bladder or bowel incontinence PSYCHIATRIC: Absent: anxiety, depression, suicidal or homicidal ideation, hallucinations. PHYSICAL EXAMINATION Vital Signs - 24 hr 03/07/19 03/07/1903/07/19 12:00 14:00 16:00 Temperature 98.1 F Pulse Rate 115 H 101 H 118 H Respiratory 20 20 20 Rate Blood Pressure 161/96 137/88 144/94 O2 Sat by Pulse Oximetry (%) 03/07/19 03/07/19 03/07/19 16:01 17:56 18:33 Temperature 98.7 F Pulse Rate 120 H 111 H 109 H Respiratory 20 20 Rate Blood Pressure 154/90 O2 Sat by Pulse 95 Oximetry (%) 03/07/19 03/07/19 03/07/19 20:00 21:00 22:00 Temperature 97.8 F 97.8 F Pulse Rate 115 H 111 H Respiratory 20 18 Rate Blood Pressure 135/99 131/118 H O2 Sat by Pulse 99 Oximetry (%) 03/08/19 03/08/19 03/08/19 00:00 00:21 02:00 Temperature 98 F 98.2 F Pulse Rate 84 75 Respiratory 18 18 Rate Blood Pressure 111/72 107/70 O2 Sat by Pulse 99 Oximetry (%) 03/08/19 03/08/19 03/08/19 03:57 04:00 04:30 Temperature 98.2 F Pulse Rate 66 Respiratory 20 Rate Blood Pressure 131/91 O2 Sat by Pulse 99 99 Oximetry (%) 03/08/19 03/08/19 03/08/19 06:00 08:00 08:07 Temperature 98 F Pulse Rate 95 H 87 Respiratory 16 19 Rate Blood Pressure 153/87 167/106 H O2 Sat by Pulse 98 Oximetry (%) 03/08/19 03/08/19 03/08/19 08:10 08:15 09:30 Temperature Pulse Rate Respiratory Rate Blood Pressure O2 Sat by Pulse 99 98 97 Oximetry (%) 03/08/19 10:00 Temperature Pulse Rate 109 H Respiratory 18 Rate Blood Pressure 153/94 O2 Sat by Pulse Oximetry (%) GENERAL: Awake, alert, and fully oriented, in no acute distress. HEAD: Normal with no signs of trauma. EYES: Pupils equal, round and reactive to light, extraocular movements intact, sclera anicteric, conjunctiva clear. No lid lag. EARS, NOSE, THROAT: Ears normal, nares patent, oropharynx clear without exudates. Moist mucous membranes. NECK: Normal range of motion, supple without lymphadenopathy, JVD, or masses. LUNGS: Breath sounds equal, clear to auscultation bilaterally. No wheezes, and no crackles. No accessory muscle use. HEART: Regular rate and rhythm, normal S1 and S2 without murmur, rub or gallop. ABDOMEN: Soft, nontender, not distended, normoactive bowel sounds, no guarding, no rebound, no masses. No hepatomegaly or splenomegaly. MUSCULOSKELETAL: Normal range of motion at all joints. No bony deformities or tenderness. No CVA tenderness. UPPER EXTREMITIES: 2+ pulses, warm, well-perfused. No cyanosis. No clubbing. No peripheral edema. LOWER EXTREMITIES: 2+ pulses, warm, well-perfused. No calf tenderness. No peripheral edema. NEUROLOGICAL: Cranial nerves II-XII intact. Normal speech. Normal gait. PSYCHIATRIC: Cooperative. Good eye contact. Appropriate mood and affect. SKIN: Warm, dry, normal turgor, no rashes or lesions noted, normal capillary refill. Laboratory Results - last 24 hr 03/07/19 07:00 Neutrophils % (Manual) 96.0 H Band Neutrophils % 0.0 Lymphocytes % (Manual) 2.0 L D Monocytes % (Manual) 0 L D Eosinophils % (Manual) 0.0 Basophils % (Manual) 0.0 Myelocytes % (Man) 2 D Promyelocytes % (Man) 0 D Blast Cells % (Manual) 0 Metamyelocytes 0 Hypochromia 0 Platelet Estimate Normal Polychromasia 1+ Poikilocytosis 1+ Anisocytosis 2+ Microcytosis 1+ Macrocytosis 0 Schistocytes 1+ ASSESSMENT/PLAN: Kate Montelongo is a 68yF w PMHx COPD (2L baseline), L Lung CA s/p resection, R breast CA s/p radiation, presenting w SOB d/t COPD and PNA Cardiac - CVC in since 02/26 - Get peripheral IV access, remove CVC - HTN - on Norvasc, maintain MAP >65, off pressors - heparin ppx Pulm - Acute on Chronic Hypoxic and Hypercapneic Respiratory Failure 2/2 COPD, PNA. On HFNC 40L / 35% FiO2 - day HFNC 40L / 35% FiO2, night NiPPV - Paged respiratory to wean HiFlo as tolerated to NC, last settings 30L/min, 35 % O2, keep O2sat > 90% - slow solumedrol taper - continue ceftriaxone Neuro - AOx3, no active issues GI - protonix ppx - poor fluid intake, encourage intake - I/O Endo - normoglycemic, no active issues ID - Leukocystosis - uptrending from 17.2 to 19.9. Likely d/t steroid use without signs of infection. Monitor FEN - Fluids: none; encourage PO intake - Electrolyte abnormalities: hyperNa, hyperCl - Nutrition: Soft diet (sodium controlled) PPX DVT - Heparin BID GI - 40 protonix qD Dispo - transfer to tele Dinesh Saeed EM Resident PGY1 Discussed w attending Dr Harris ATTENDING PHYSICIAN STATEMENT I saw and evaluated the patient. I reviewed the resident's note and discussed the case with the resident. I agree with the resident's findings and plan as documented. SUBJECTIVE: OBJECTIVE: ASSESSMENT AND PLAN:
--- NOTE | 2019-03-08 11:14 | PN ---
Physical Exam: SUBJECTIVE: Patient seen and examined. 10pm last night, pt felt SOB on NC with O2 sats wnl, switched to Bipap. This morning, pt feels breathing improved on 3L NC w intermittent cough, no CP/SOB. Pt refused blood lab draws this morning. Pt agreed to restart home Spiriva and Advair, doesn't like to use albuterol inhaler. Open to try Zolpenex if insurance covers cost. OBJECTIVE: Vital Signs Period Temp Pulse Resp BP Sys/Sawyer Pulse Ox Last 24 Hr 97.8 F-98.7 F 66-120 16-20 107-167/70-118 95-99 GENERAL: The patient is awake, alert, and fully oriented, in no acute distress. HEAD: Normal with no signs of trauma. LUNGS: Reduced ailyn breath sounds, ailyn crackles, no wheezes, no accessory muscle use. HEART: Regular rate and rhythm, S1, S2 without murmur, rub or gallop. ABDOMEN: Soft, nontender, nondistended, normoactive bowel sounds, no guarding, no rebound, no organomegaly no masses. EXTREMITIES: 2+ pulses, warm, well-perfused, no edema. PSYCH: Normal mood, normal affect. Laboratory Results - last 24 hr 03/07/19 07:00 Neutrophils % (Manual) 96.0 H Band Neutrophils % 0.0 Lymphocytes % (Manual) 2.0 L D Monocytes % (Manual) 0 L D Eosinophils % (Manual) 0.0 Basophils % (Manual) 0.0 Myelocytes % (Man) 2 D Promyelocytes % (Man) 0 D Blast Cells % (Manual) 0 Metamyelocytes 0 Hypochromia 0 Platelet Estimate Normal Polychromasia 1+ Poikilocytosis 1+ Anisocytosis 2+ Microcytosis 1+ Macrocytosis 0 Schistocytes 1+ Active Medications Generic Name Dose Route Start Last Admin Trade Name Freq PRN Reason Stop Dose Admin Acetaminophen 650 mg 03/06/19 18:59 03/06/19 21:38 Tylenol - PO 650 mg Q4H PRN Administration PAIN LEVEL 1-5 Albuterol/Ipratropium 1 amp 03/07/19 08:00 03/08/19 08:11 Duoneb - NEB Not Given RQID BRIE Amlodipine Besylate 10 mg 03/04/19 08:07 03/08/19 10:13 Norvasc - PO 10 mg DAILY BRIE Administration Chlorhexidine Gluconate 1 applic 02/26/19 22:00 03/07/19 22:03 Hibiclens For Decolonization - TP 1 applic HS BRIE Administration Heparin Sodium (Porcine) 5,000 unit 02/26/19 22:00 03/08/19 10:13 Heparin - SQ 5,000 unit BID BRIE Administration Ceftriaxone Sodium 1 gm/ 50 mls @ 200 mls/hr 02/26/19 15:00 03/08/19 10:14 Dextrose IVPB 200 mls/hr DAILY BRIE Administration Protocol Methylprednisolone Sodium Succinate 40 mg 03/07/19 14:00 03/08/19 05:37 Solu-Medrol - IVPB 40 mg TID BRIE Administration Pantoprazole Sodium 40 mg 03/07/19 10:00 03/08/19 10:13 Protonix - PO 40 mg DAILY BRIE Administration Quetiapine Fumarate 50 mg 03/06/19 22:00 03/07/19 22:03 Seroquel - PO 50 mg HS BRIE Administration ASSESSMENT/PLAN: Kate Montelongo is a 68yF w PMHx COPD (2L baseline), L Lung CA s/p resection, R breast CA s/p radiation, presenting w SOB d/t COPD and PNA Cardiac - removed CVC, placed L forearm IV yesterday - HTN controlled w Norvasc, maintain MAP >65, off pressors - heparin ppx Pulm - Acute on Chronic Hypoxic and Hypercapneic Respiratory Failure 2/2 COPD, PNA - on day 3L NC, night NiPPV, weaned off HiFlo - solumedrol taper (40 TID) - restarted home Spiriva, Advair - last dose ceftriaxone today Neuro - AOx3, no active issues GI - protonix ppx - poor fluid intake, encouraged intake - I/O Endo - normogylcemic, no active issues ID - Leukocystosis - uptrending from 17.2 to 19.9. Likely d/t steroid use without signs of infection. Monitor - last dose ceftriaxone today FEN - Fluids: none; encourage PO intake - Electrolyte abnormalities: n/a - Nutrition: Soft diet (sodium controlled) PPX DVT - Heparin BID GI - 40 protonix qD Dispo - transfer to [facility] Dinesh Saeed EM Resident PGY1 Discussed w attending Dr Harris Visit type - Emergency Visit Emergency Visit: Yes ED Registration Date: 02/26/19 Care time: The patient presented to the Emergency Department on the above date and was hospitalized for further evaluation of their emergent condition. - New Patient This patient is new to me today: No - Critical Care Critical Care patient: Yes Total Critical Care Time (in minutes): 36 Critical Care Statement: The care of this patient involved high complexity decision making to prevent further life threatening deterioration of the patient 's condition and/or to evaluate & treat vital organ system(s) failure or risk of failure. ATTENDING PHYSICIAN STATEMENT I saw and evaluated the patient. I reviewed the resident's note and discussed the case with the resident. I agree with the resident's findings and plan as documented. SUBJECTIVE: OBJECTIVE: ASSESSMENT AND PLAN:
--- NOTE | 2019-03-08 11:52 | PN ---
Teaching Attending Note Name of Resident: Dinesh Saeed ATTENDING PHYSICIAN STATEMENT I saw and evaluated the patient. I reviewed the resident's note and discussed the case with the resident. I agree with the resident's findings and plan as documented. SUBJECTIVE: Patient seen and examined in the ICU. Remains extubated. Tolerating NC O2 but reports intermittent feelings of increased WOB. Used NIPPV over night. Reports that her breathing is overall better but not at baseline. Some dry cough. No hemoptysis. Intake & Output 03/05/19 03/06/19 03/07/19 03/08/19 23:59 23:59 23:59 23:59 Intake Total 610 760 910 250 Output Total 2200 900 1900 1200 Balance -1590 -140 -990 -950 Weight 114 lb 6.4 oz 106 lb 106 lb 106 lb Last Vital Signs Temp Pulse Resp BP Pulse Ox 98 F 109 H 18 153/94 97 03/08/19 06:00 03/08/19 10:00 03/08/19 10:00 03/08/19 10:00 03/08/19 11:42 Active Medications Acetaminophen (Tylenol -) 650 mg PO Q4H PRN PRN Reason: PAIN LEVEL 1-5 Last Admin: 03/06/19 21:38 Dose: 650 mg Amlodipine Besylate (Norvasc -) 10 mg PO DAILY [facility] Last Admin: 03/08/19 10:13 Dose: 10 mg Chlorhexidine Gluconate (Hibiclens For Decolonization -) 1 applic TP HS [facility] Last Admin: 03/07/19 22:03 Dose: 1 applic Heparin Sodium (Porcine) (Heparin -) 5,000 unit SQ BID [facility] Last Admin: 03/08/19 10:13 Dose: 5,000 unit Methylprednisolone Sodium Succinate (Solu-Medrol -) 40 mg IVPB TID [facility] Last Admin: 03/08/19 05:37 Dose: 40 mg Pantoprazole Sodium (Protonix -) 40 mg PO DAILY [facility] Last Admin: 03/08/19 10:13 Dose: 40 mg Quetiapine Fumarate (Seroquel -) 50 mg PO HS [facility] Last Admin: 03/07/19 22:03 Dose: 50 mg Fluticasone/Salmeterol (Advair 100mcg/50mcg -) 1 puff IH BID [facility] Tiotropium [place] (Spiriva Respimat) 2 puff IH DAILY [facility]RIE Gen: awake and alert, NAD on NC O2 Heart: nml S1 S2, RR Lung: Diminished throughout, no active wheezing Abd: + BS, S/S N/T N/D X4Q Ext: + pulses, WWPX4, no edema BUS AIDE: awake and alert, non-focal Laboratory Results - last 24 hr 03/07/19 07:00 Neutrophils % (Manual) 96.0 H Band Neutrophils % 0.0 Lymphocytes % (Manual) 2.0 L D Monocytes % (Manual) 0 L D Eosinophils % (Manual) 0.0 Basophils % (Manual) 0.0 Myelocytes % (Man) 2 D Promyelocytes % (Man) 0 D Blast Cells % (Manual) 0 Metamyelocytes 0 Hypochromia 0 Platelet Estimate Normal Polychromasia 1+ Poikilocytosis 1+ Anisocytosis 2+ Microcytosis 1+ Macrocytosis 0 Schistocytes 1+ ASSESSMENT: Acute on Chronic Hypoxic and Hypercapneic Respiratory Failure Pneumonia Septic Shock Lactic Acidosis Acute COPD Exacerbation h/o Lung Ca h/o Breast Ca HTN PLAN: - Wean Medrol - NC O2 as tolerated - NIPPV support PRN and QHS - BD TX - Rocephin - Monitor urine output, creatinine - DVT/GI prophylaxis - 4W/ 4S for continuous oximetry monitoring Dr Harris
[2019-03-08] MEDS ORDERED: ACETAMINOPHEN 325 MG TABLET (FP) PO PRN (14:55)
[2019-03-08] MEDS ORDERED: QUEtiapine FUMARATE 25 MG TABLET (FP) ONE (21:18)
[2019-03-08] MEDS: QUEtiapine FUMARATE 50 MG TABLET PO SCH (21:29)
[2019-03-08] MEDS ORDERED: FLUTICASONE/SALMETEROL 100 MCG/50 MCG DISKUS IH SCH ×2 (22:00)
[2019-03-08] MEDS ORDERED: PT OWN MED DRAWER 7, Y5N ONE (22:20)
[2019-03-09] MEDS: methylPREDNISolone NA SUCC 40 MG/1 ML VIAL IVPB SCH ×3 (05:46→21:23)
[2019-03-09 06:26] LABS: BASO % 0.1 % (0-2.0); HEMOGLOBIN 9.7 GM/dL (10.7-15.3); LYMPH % 0.8 % (8-40); MCHC 32.2 g/dl (32.0-36.0); MEAN CELL VOLUME 80.6 fl (80-96); MEAN PLT VOLUME 8.2 fl (7.5-11.1); MONO % 2.6 % (3.8-10.2); NEUT % 96.5 % (42.8-82.8); PLATELET COUNT 229 K/MM3 (134-434); RBC 3.72 M/mm3 (3.60-5.2); RDW 16.2 % (11.6-15.6); WHITE BLOOD COUNT 19.8 K/mm3 (4.0-10.0)
[2019-03-09 07:08] LABS: ALBUMIN 2.8 g/dl (3.4-5.0); BILIRUBIN,TOTAL 0.2 mg/dL (0.2-1); BLOOD UREA NITROGEN 38.1 mg/dL (7-18); CALCIUM 8.6 mg/dL (8.5-10.1); CREATININE 0.7 mg/dL (0.55-1.3); PHOSPHOROUS 2.8 mg/dL (2.5-4.9); POTASSIUM 4.1 mmol/L (3.5-5.1); TOT PROT 5.7 g/dl (6.4-8.2)
[2019-03-09] MEDS ORDERED: PT OWN MED DRAWER 7, Y5N ONE ×3 (07:13→12:18)
--- NOTE | 2019-03-09 07:52 | PN ---
Progress Note (short form) - Note Progress Note: HPI: No acute events overnight. No telemetry events noted Vital Signs Temperature 98.1 F 03/08/19 23:00 Pulse Rate 88 03/09/19 07:00 Respiratory Rate 18 03/09/19 07:00 Blood Pressure 153/90 03/09/19 07:00 O2 Sat by Pulse Oximetry (%) 98 03/09/19 02:06 PE: Gen: NAD, awake, alert HEENT: NC/AT, JOSE, MMM Neck: No JVD LUNG: Bilateral crackles at the base improved; better aeration. On NC this aM Heart: RRR no murmurs Abd: soft, Nt/ND Ext: no edema Microbiology 02/26/19 12:00 Blood - Peripheral Venous Blood Culture - Final NO GROWTH AFTER 5 DAYS INCUBATION 02/26/19 12:00 Blood - Peripheral Venous Blood Culture - Final NO GROWTH AFTER 5 DAYS INCUBATION 02/27/19 00:20 Sputum - Endotrachea Suction/Ventilator Gram Stain - Final 02/27/19 00:20 Sputum - Endotrachea Suction/Ventilator Sputum Culture - Final NORMAL RESPIRATORY ABBIE 02/27/19 11:00 Urine For Antigen Detection Legionella Antigen - Final 02/27/19 11:00 Urine For Antigen Detection Streptococcus pneumoniae Antigen (M - Final 02/26/19 13:40 Urine - Urine - Catheterized Urine Culture - Final NO GROWTH OBTAINED Active Medications Acetaminophen (Tylenol -) 650 mg PO Q4H PRN PRN Reason: PAIN LEVEL 1-5 Albuterol Sulfate (Ventolin 0.083% Nebulizer Soln -) 1 amp NEB Q4H PRN PRN Reason: SHORT OF BREATH/WHEEZING Amlodipine Besylate (Norvasc -) 10 mg PO DAILY [facility] Heparin Sodium (Porcine) (Heparin -) 5,000 unit SQ BID [facility] Last Admin: 03/08/19 21:28 Dose: 5,000 unit Methylprednisolone Sodium Succinate (Solu-Medrol -) 40 mg IVPB TID [facility] Last Admin: 03/09/19 05:46 Dose: 40 mg Pantoprazole Sodium (Protonix -) 40 mg PO DAILY [facility] Quetiapine Fumarate (Seroquel -) 50 mg PO HS [facility] Last Admin: 03/08/19 21:29 Dose: 50 mg Tiotropium [place] (Spiriva Respimat) 2 puff IH DAILY BRIE A/P: Acute on chronic hypoxic hypercapenic respiratory failure COPD Exacerbation Hypertensive Urgency Septic shock 2/2 to pneumonia (resolved) Lactic acidosis (resolved) Acute anemia (improved) --Pt comfortable with NC during day but still requiring NIPPV at night --Try to taper as tolerated --Maintain SpO2 >90% --Taper corticosteroids (currently Medrol 60mg q8h IVP) --Continue Norvasc 10mg qdaily --Continue Seroquel 50mg HS PO --Appreciate all wedding consultant recommendations FEN: Fluids: none; encourage PO intake Electrolyte abnormalities: None today Nutrition: Soft diet (sodium controlled) PPX: DVT - Heparin BID SQ GI - protonix 40mg PO Dispo: Case discussed with Jose C Conway, - IM PGY-3 <Wilber Conway - Last Filed: 03/09/19 10:56> - Note Progress Note: Seen and examined; please see resident note for further historical information. I personally verified all mariscal historical information and exam findings. Personally interpreted all imaging and diagnostics and reviewed appropriate consults. I reviewed all labs and vital signs as per resident note and EMR as documented. I agree with the above assessment and plan unless supplemented by myself in the following. Cough and SOB stated as improved but still on high flow No fevers, no chest pain, etc. Remains in good spirits. Consider ABG in AM. 10 sys ROS done and is negative aside from HPI VS, labs, imaging reviewed NAD, AAO, resting in bed NC AT EOMI PERRLA Neck supple, trach ML, no LN HR wnl, s1/2 Lungs CTAB, w/ sym exp NT ND +BS Skin without rashes or breakdown CN2-12 wnl, no fnd Normal mood, appropriate behavior Echo reviewed; lvef wnl A/P: -Acute on chronic mixed respiratory failure requiring mechanical ventillation; s /p extubation now weaning from High Flow -Septic Shock secondary to pneumococcal pneumonia, weaned from NE ggt, monitor -Sinus Bradycardia, consider CV consult but will first address with ICU team. No BB, etc -Elevated BNP -Hx Lung cancer -Hx COPD on home O2, PFTs unknown -Septic shock vs. hypotension 2/2 induction in the setting of respiratory failure-on broad spectrum and w/o fever, pending ID consult -Hypoalbuminemia -HypooMg -HyperK -Hx Gastric CA Agree with resident note; we will continue to wean her from NIMV as tolerated and transfer to regular medical floor when able She has severe COPD underlying this and very poor insight-she informed me that her continues to smoke around her which is a likely trigger for her symptoms. Will need PFTs and pulmonary rehab on DC due to aforementioned. Solumedrol being actively weaned and the patinet continues to require high flow. Pulmonary is weaning. Has been difficult. 45 minutes spent in the care of this patient. <Eric Woodall - Last Filed: 03/09/19 13:30>
[2019-03-09] MEDS: HEPARIN NA (PORCINE) 5,000 UNITS/ML 1ML VIAL SQ SCH ×2 (09:28→21:23)
[2019-03-09] MEDS: PANTOPRAZOLE 40 MG TABLET (FP) PO SCH (09:28)
[2019-03-09] MEDS: amLODIPine BESYLATE 10 MG TABLET (FP) PO SCH (09:28)
[2019-03-09] MEDS ORDERED: TIOTROPIUM BROMIDE 2.5 MCG (SPIRIVA) RESPIMAT INHALER IH SCH (10:00)
[2019-03-09 11:41] LABS: ANISOCYTOSIS 1+; MACROCYTOSIS 0; PLATELET ESTIMATE NORMAL; TARGET CELLS 1+
[2019-03-09] MEDS: TIOTROPIUM BROMIDE 2.5 MCG (SPIRIVA) RESPIMAT INHALER IH SCH (12:22)
--- NOTE | 2019-03-09 12:46 | PN ---
Progress Note (short form) - Note Progress Note: PULMONARY Breathing slowly improving. Minimal cough. No fevers. Vital Signs Period Temp Pulse Resp BP Sys/Sawyer Pulse Ox Last 24 Hr 98.0 F-98.1 F 82-119 15-22 119-153/82-98 96-100 Gen: mildly tachypneic with speaking Heart: RRR Lung: distant breath sounds Abd: soft, nontender Ext: no edema CBC, BMP 03/09/19 05:35 03/09/19 05:30 Active Medications Acetaminophen (Tylenol -) 650 mg PO Q4H PRN PRN Reason: PAIN LEVEL 1-5 Albuterol Sulfate (Ventolin 0.083% Nebulizer Soln -) 1 amp NEB Q4H PRN PRN Reason: SHORT OF BREATH/WHEEZING Amlodipine Besylate (Norvasc -) 10 mg PO DAILY [facility] Last Admin: 03/09/19 09:28 Dose: 10 mg Heparin Sodium (Porcine) (Heparin -) 5,000 unit SQ BID [facility] Last Admin: 03/09/19 09:28 Dose: 5,000 unit Methylprednisolone Sodium Succinate (Solu-Medrol -) 40 mg IVPB TID [facility] Last Admin: 03/09/19 05:46 Dose: 40 mg Pantoprazole Sodium (Protonix -) 40 mg PO DAILY [facility] Last Admin: 03/09/19 09:28 Dose: 40 mg Quetiapine Fumarate (Seroquel -) 50 mg PO HS [facility] Last Admin: 03/08/19 21:29 Dose: 50 mg Tiotropium [place] (Spiriva Respimat) 2 puff IH DAILY [facility] Last Admin: 03/09/19 12:22 Dose: 2 puff A/P Acute on Chronic Hypoxic and Hypercapneic Respiratory Failure improving Pneumonia Septic Shock resolved Lactic Acidosis resolved Acute COPD Exacerbation h/o Lung Ca h/o Breast Ca HTN Anemia - completed antibiotics - medrol taper - inhaled bronchodilators - O2 to keep SpO2 >90% - BiPAP at night and PRN during day - DVT prophylaxis
[2019-03-09] MEDS: QUEtiapine FUMARATE 50 MG TABLET PO SCH (21:23)
[2019-03-10] MEDS: methylPREDNISolone NA SUCC 40 MG/1 ML VIAL IVPB SCH ×2 (05:06→17:43)
[2019-03-10 06:44] LABS: HEMATOCRIT 29.8 % (32.4-45.2); HEMOGLOBIN 9.5 GM/dL (10.7-15.3); MCH 25.9 pg (25.7-33.7); MCHC 31.9 g/dl (32.0-36.0); MEAN CELL VOLUME 81.2 fl (80-96); MEAN PLT VOLUME 8.2 fl (7.5-11.1); PLATELET COUNT 221 K/MM3 (134-434); RBC 3.67 M/mm3 (3.60-5.2); WHITE BLOOD COUNT 18.5 K/mm3 (4.0-10.0)
[2019-03-10 07:30] LABS: BLOOD UREA NITROGEN 39.4 mg/dL (7-18); CALCIUM 8.8 mg/dL (8.5-10.1); CREATININE 0.7 mg/dL (0.55-1.3); POTASSIUM 3.8 mmol/L (3.5-5.1)
--- NOTE | 2019-03-10 08:20 | PN ---
Progress Note (short form) - Note Progress Note: HPI: Pt's room cold. Otherwise no event overnights. Pt reports slight improvement of breathing today. Vital Signs Temperature 97.8 F 03/10/19 06:00 Pulse Rate 92 H 03/10/19 10:00 Respiratory Rate 18 03/10/19 10:00 Blood Pressure 142/78 03/10/19 10:00 O2 Sat by Pulse Oximetry (%) 96 03/10/19 09:00 PE: Gen: NAD, awake, alert, oriented x3 HEENT: NC/AT, JOSE, MMM Neck: No JVD LUNG: Distant sounds, no overt wheezing. On 3LNC Heart: Tachycardic @100bpm with regular rhythm no murmurs Abd: soft, Nt/ND, normoactive BS Ext: no edema CBC, BMP 03/10/19 05:58 03/10/19 05:58 Microbiology 02/26/19 12:00 Blood - Peripheral Venous Blood Culture - Final NO GROWTH AFTER 5 DAYS INCUBATION 02/26/19 12:00 Blood - Peripheral Venous Blood Culture - Final NO GROWTH AFTER 5 DAYS INCUBATION 02/27/19 00:20 Sputum - Endotrachea Suction/Ventilator Gram Stain - Final 02/27/19 00:20 Sputum - Endotrachea Suction/Ventilator Sputum Culture - Final NORMAL RESPIRATORY ABBIE 02/27/19 11:00 Urine For Antigen Detection Legionella Antigen - Final 02/27/19 11:00 Urine For Antigen Detection Streptococcus pneumoniae Antigen (M - Final 02/26/19 13:40 Urine - Urine - Catheterized Urine Culture - Final NO GROWTH OBTAINED Active Medications Acetaminophen (Tylenol -) 650 mg PO Q4H PRN PRN Reason: PAIN LEVEL 1-5 Albuterol Sulfate (Ventolin 0.083% Nebulizer Soln -) 1 amp NEB Q4H PRN PRN Reason: SHORT OF BREATH/WHEEZING Amlodipine Besylate (Norvasc -) 10 mg PO DAILY [facility] Last Admin: 03/10/19 11:42 Dose: 10 mg Heparin Sodium (Porcine) (Heparin -) 5,000 unit SQ BID [facility] Last Admin: 03/10/19 11:41 Dose: 5,000 unit Methylprednisolone Sodium Succinate (Solu-Medrol -) 40 mg IVPB TID [facility] Last Admin: 03/10/19 05:06 Dose: 40 mg Pantoprazole Sodium (Protonix -) 40 mg PO DAILY [facility] Last Admin: 03/10/19 11:42 Dose: 40 mg Quetiapine Fumarate (Seroquel -) 50 mg PO HS [facility] Last Admin: 03/09/19 21:23 Dose: 50 mg Tiotropium [place] (Spiriva Respimat) 2 puff IH DAILY [facility] Last Admin: 03/10/19 11:42 Dose: 2 puff A/P: Acute on chronic hypoxic hypercapenic respiratory failure COPD Exacerbation Hypertensive Urgency Spiculated pulmonary nodule R/o metastases Septic shock / to pneumonia (resolved) Lactic acidosis (resolved) Acute anemia (improved) --CT abd and chest ordered for malignant workup due to spiculated lesion noted --Decrease Medrol to 40mg q12h IVP --Appreciated pulmonology recommendations --Maintain SpO2 >90% --Continue Spiriva --Albuterol PRN for SOB/wheezing --Continue Norvasc 10mg qdaily --Continue Seroquel 50mg HS PO --Appreciate all pmo consultant recommendations FEN: Fluids: none; encourage PO intake Electrolyte abnormalities: None today Nutrition: Soft diet (sodium controlled) PPX: DVT - Heparin BID SQ GI - protonix 40mg PO Dispo: Continue monitoring; will place pre-post ambulatory o2 tomorrow AM Case discussed with Jose C Conway DO - IM PGY-3 <Wilber Conway - Last Filed: 03/10/19 12:34> - Note Progress Note: Seen and examined; please see resident note for further historical information. I personally verified all mariscal historical information and exam findings. Personally interpreted all imaging and diagnostics and reviewed appropriate consults. I reviewed all labs and vital signs as per resident note and EMR as documented. I agree with the above assessment and plan unless supplemented by myself in the following. Cough and SOB stated as improved but still on high flow No events overnight; attempting to wean. Will likely need rehab placement. She is a somewhat poor historian as I have outlined in prior notes and I am concerned regarding her cancer followup as she has alluded to refusing chemo, etc. and had limited insight as tohow her ongoing second hand smoke exposure was worsening her symptoms. 10 sys ROS done and is negative aside from HPI VS, labs, imaging reviewed NAD, AAO, resting in bed NC AT EOMI PERRLA Neck supple, trach ML, no LN HR wnl, s1/2 Lungs with some persisting wheezes, w/ sym exp NT ND +BS Skin without rashes or breakdown CN2-12 wnl, no fnd Normal mood, appropriate behavior Echo reviewed; lvef wnl A/P: -Acute on chronic mixed respiratory failure requiring mechanical ventillation; s /p extubation now weaning from High Flow -Septic Shock secondary to pneumococcal pneumonia, weaned from NE ggt, monitor -Sinus Bradycardia, consider CV consult but will first address with ICU team. No BB, etc -Elevated BNP -Hx Lung cancer -Hx COPD on home O2, PFTs unknown -Septic shock vs. hypotension 2/2 induction in the setting of respiratory failure-on broad spectrum and w/o fever, pending ID consult -Hypoalbuminemia -HypooMg -HyperK -Hx Gastric CA Continue weaning to regular NC and off IV steroids; defer overall with this to pulmonary Obtaining records relating to her ongoing cancer care to ensure good followup- she tells me that she is 'too sick' to see her normal cancer MD and this has lead to complications in followup. <Eric Woodall - Last Filed: 03/11/19 14:32>
[2019-03-10] MEDS: HEPARIN NA (PORCINE) 5,000 UNITS/ML 1ML VIAL SQ SCH ×2 (11:41→22:43)
[2019-03-10] MEDS: PANTOPRAZOLE 40 MG TABLET (FP) PO SCH (11:42)
[2019-03-10] MEDS: amLODIPine BESYLATE 10 MG TABLET (FP) PO SCH (11:42)
[2019-03-10] MEDS: TIOTROPIUM BROMIDE 2.5 MCG (SPIRIVA) RESPIMAT INHALER IH SCH (11:42)
--- NOTE | 2019-03-10 11:46 | PN ---
Progress Note (short form) - Note Progress Note: Breathing slowly improving. NIPPV support overnight. Currently on 3 L NC O2. No acute events overnight. Intake & Output 03/07/19 03/08/19 03/09/19 03/10/19 23:59 23:59 23:59 23:59 Intake Total 910 660 200 160 Output Total 1900 1600 600 350 Balance -990 -940 -400 -190 Weight 106 lb 106 lb 123 lb 1.6 oz Last Vital Signs Temp Pulse Resp BP Pulse Ox 97.8 F 92 H 18 142/78 96 03/10/19 06:00 03/10/19 10:00 03/10/19 10:00 03/10/19 10:00 03/10/19 09:00 Active Medications Acetaminophen (Tylenol -) 650 mg PO Q4H PRN PRN Reason: PAIN LEVEL 1-5 Albuterol Sulfate (Ventolin 0.083% Nebulizer Soln -) 1 amp NEB Q4H PRN PRN Reason: SHORT OF BREATH/WHEEZING Amlodipine Besylate (Norvasc -) 10 mg PO DAILY [facility] Last Admin: 03/09/19 09:28 Dose: 10 mg Heparin Sodium (Porcine) (Heparin -) 5,000 unit SQ BID [facility] Last Admin: 03/09/19 21:23 Dose: 5,000 unit Methylprednisolone Sodium Succinate (Solu-Medrol -) 40 mg IVPB TID [facility] Last Admin: 03/10/19 05:06 Dose: 40 mg Pantoprazole Sodium (Protonix -) 40 mg PO DAILY [facility] Last Admin: 03/09/19 09:28 Dose: 40 mg Quetiapine Fumarate (Seroquel -) 50 mg PO HS [facility] Last Admin: 03/09/19 21:23 Dose: 50 mg Tiotropium [place] (Spiriva Respimat) 2 puff IH DAILY [facility] Last Admin: 03/09/19 12:22 Dose: 2 puff Gen: mildly tachypneic with speaking Heart: RRR Lung: distant breath sounds, no active wheeze Abd: soft, nontender Ext: no edema Laboratory Results - last 24 hr 03/09/19 03/10/19 03/10/19 05:35 05:58 05:58 WBC 18.5 H RBC 3.67 Hgb 9.5 L Hct 29.8 L MCV 81.2 MCH 25.9 MCHC 31.9 L RDW 16.0 H Plt Count 221 MPV 8.2 Neutrophils % (Manual) 95.0 H Band Neutrophils % 1.0 Lymphocytes % (Manual) 2.0 L Monocytes % (Manual) 2 L D Eosinophils % (Manual) 0.0 Basophils % (Manual) 0.0 Myelocytes % (Man) 0 D Promyelocytes % (Man) 0 Blast Cells % (Manual) 0 Metamyelocytes 0 Hypochromia 0 Platelet Estimate Normal Polychromasia 0 Poikilocytosis 1+ Anisocytosis 1+ Microcytosis 1+ Macrocytosis 0 Target Cells 1+ Schistocytes 1+ Sodium 144 Potassium 3.8 Chloride 102 Carbon Dioxide 37 H Anion Gap 5 L BUN 39.4 H Creatinine 0.7 Est GFR (CKD-EPI)AfAm 103.91 Est GFR (CKD-EPI)NonAf 89.65 Random Glucose 105 Calcium 8.8 A/P Acute on Chronic Hypoxic and Hypercapneic Respiratory Failure improving Pneumonia Septic Shock resolved Lactic Acidosis resolved Acute COPD Exacerbation h/o Lung Ca h/o Breast Ca HTN Anemia - completed antibiotics - medrol taper to Q12h - inhaled bronchodilators - O2 to keep SpO2 >90% - BiPAP at night and PRN during day - DVT prophylaxis Dr Harris
[2019-03-10] MEDS: ALBUTEROL SO4 0.083% IH SOL 2.5 MG/3 ML VIAL.NEB. NEB PRN (21:15)
[2019-03-10] MEDS: QUEtiapine FUMARATE 50 MG TABLET PO SCH (22:43)
[2019-03-11] MEDS: methylPREDNISolone NA SUCC 40 MG/1 ML VIAL IVPB SCH ×2 (06:16→18:06)
[2019-03-11 06:20] LABS: HEMATOCRIT 31.1 % (32.4-45.2); HEMOGLOBIN 9.9 GM/dL (10.7-15.3); MCH 25.9 pg (25.7-33.7); MCHC 31.8 g/dl (32.0-36.0); MEAN CELL VOLUME 81.2 fl (80-96); MEAN PLT VOLUME 8.2 fl (7.5-11.1); PLATELET COUNT 220 K/MM3 (134-434); RBC 3.83 M/mm3 (3.60-5.2); RDW 16.3 % (11.6-15.6); WHITE BLOOD COUNT 17.8 K/mm3 (4.0-10.0)
[2019-03-11 07:26] LABS: CALCIUM 8.5 mg/dL (8.5-10.1); CREATININE 0.8 mg/dL (0.55-1.3)
--- NOTE | 2019-03-11 07:31 | PN ---
Progress Note (short form) - Note Progress Note: HPI: No overnight events. No telemetry events. Pt wondering what her long-term plan will be, otherwise still on NC without current symptoms of shortness of breath Vital Signs Temperature 97.6 F 03/11/19 06:00 Pulse Rate 83 03/11/19 06:00 Respiratory Rate 17 03/11/19 06:00 Blood Pressure 130/87 03/11/19 06:00 O2 Sat by Pulse Oximetry (%) 97 03/11/19 08:09 PE: Gen: NAD, awake, alert, oriented x3 HEENT: NC/AT, JOSE, MMM Neck: No JVD LUNG: Distant sounds, no overt wheezing, aeration to bases with good respiratory effort. On 3LNC Heart: RRR no murmurs Abd: soft, Nt/ND, normoactive BS Ext: no edema CBC, BMP 03/11/19 05:44 03/11/19 05:44 Active Medications Acetaminophen (Tylenol -) 650 mg PO Q4H PRN PRN Reason: PAIN LEVEL 1-5 Albuterol Sulfate (Ventolin 0.083% Nebulizer Soln -) 1 amp NEB Q4H PRN PRN Reason: SHORT OF BREATH/WHEEZING Last Admin: 03/10/19 21:15 Dose: 1 amp Amlodipine Besylate (Norvasc -) 10 mg PO DAILY [facility] Last Admin: 03/10/19 11:42 Dose: 10 mg Heparin Sodium (Porcine) (Heparin -) 5,000 unit SQ BID [facility] Last Admin: 03/10/19 22:43 Dose: 5,000 unit Methylprednisolone Sodium Succinate (Solu-Medrol -) 40 mg IVPB Q12H [facility] Last Admin: 03/11/19 06:16 Dose: 40 mg Pantoprazole Sodium (Protonix -) 40 mg PO DAILY [facility] Last Admin: 03/10/19 11:42 Dose: 40 mg Quetiapine Fumarate (Seroquel -) 50 mg PO HS [facility] Last Admin: 03/10/19 22:43 Dose: 50 mg Tiotropium [place] (Spiriva Respimat) 2 puff IH DAILY [facility] Last Admin: 03/10/19 11:42 Dose: 2 puff Microbiology 02/26/19 12:00 Blood - Peripheral Venous Blood Culture - Final NO GROWTH AFTER 5 DAYS INCUBATION 02/26/19 12:00 Blood - Peripheral Venous Blood Culture - Final NO GROWTH AFTER 5 DAYS INCUBATION 02/27/19 00:20 Sputum - Endotrachea Suction/Ventilator Gram Stain - Final 02/27/19 00:20 Sputum - Endotrachea Suction/Ventilator Sputum Culture - Final NORMAL RESPIRATORY ABBIE 02/27/19 11:00 Urine For Antigen Detection Legionella Antigen - Final 02/27/19 11:00 Urine For Antigen Detection Streptococcus pneumoniae Antigen (M - Final 02/26/19 13:40 Urine - Urine - Catheterized Urine Culture - Final NO GROWTH OBTAINED A/P: Acute on chronic hypoxic hypercapenic respiratory failure COPD Exacerbation (improving) Spiculated pulmonary nodule; R/o metastases Hypertensive Urgency (resolved) Septic shock /2 to pneumonia (resolved) Lactic acidosis (resolved) Acute anemia (improved) --CT abd and chest ordered for malignant workup due to spiculated lesion noted --Images reviewed; awaiting official review --Medrol to 40mg q12h IVP day 2 today --Appreciated pulmonology recommendations --Maintain SpO2 >90% --Pre and post ambulatory O2 placed for oxygen requirements --Physical therapy note reviewed: pt only walked 40ft, will likely need rehabilitation; continue PT --Continue Spiriva --Albuterol PRN for SOB/wheezing --Continue Norvasc 10mg qdaily --Continue Seroquel 50mg HS PO --Appreciate all production consultant recommendations FEN: Fluids: none; encourage PO intake Electrolyte abnormalities: None today Nutrition: Soft diet (sodium controlled) PPX: DVT - Heparin BID SQ GI - protonix 40mg PO Dispo: Continue monitoring Case discussed with Jose C Conway DO - IM PGY-3 <Wilber Conway - Last Filed: 03/11/19 09:09> - Note Progress Note: Seen and examined; please see resident note for further historical information. I personally verified all mariscal historical information and exam findings. Personally interpreted all imaging and diagnostics and reviewed appropriate consults. I reviewed all labs and vital signs as per resident note and EMR as documented. I agree with the above assessment and plan unless supplemented by myself in the following. Doing well on NC; titrate as needed Resident team obtained all oncology phone numbers; pending callback and discussion Prolonged conversation regarding goals of care and cancer care. We will likely need full records. She states she has had sporadic FU due to 'being sick' 10 sys ROS done and is negative aside from HPI VS, labs, imaging reviewed NAD, AAO, resting in bed NC AT EOMI PERRLA Neck supple, trach ML, no LN HR wnl, s1/2 Lungs CTAB, w/ sym exp NT ND +BS Skin without rashes or breakdown CN2-12 wnl, no fnd Normal mood, appropriate behavior Echo reviewed; lvef wnl A/P: -Acute on chronic mixed respiratory failure requiring mechanical ventillation; s /p extubation now weaning from High Flow -Septic Shock secondary to pneumococcal pneumonia, weaned from NE ggt, monitor -Sinus Bradycardia, consider CV consult but will first address with ICU team. No BB, etc -Elevated BNP -Hx Lung cancer -Hx COPD on home O2, PFTs unknown -Septic shock vs. hypotension 2/2 induction in the setting of respiratory failure-on broad spectrum and w/o fever, pending ID consult -Hypoalbuminemia -HypooMg -HyperK -Hx Gastric CA Agree with resident note; we will continue to wean her from NIMV as tolerated and transfer to regular medical floor when able She has severe COPD underlying this and very poor insight-she informed me that her continues to smoke around her which is a likely trigger for her symptoms. Will need PFTs and pulmonary rehab on DC due to aforementioned. Wean steroids, elucidate oncologic followup, and PT FU. Likely DC to rehab Thursday or Thursday. 45 minutes spent in the care of this patient. <Eric Woodall - Last Filed: 03/11/19 20:32>
--- NOTE | 2019-03-11 11:14 | PN ---
Progress Note (short form) - Note Progress Note: Breathing continues to slowly improving. NIPPV support overnight. Currently on 3 L NC O2. No acute events overnight. Intake & Output 03/08/19 03/09/19 03/10/19 03/11/19 23:59 23:59 23:59 23:59 Intake Total 660 200 510 150 Output Total 1600 600 950 Balance -940 -400 -440 150 Weight 106 lb 123 lb 1.6 oz 120 lb Last Vital Signs Temp Pulse Resp BP Pulse Ox 97.6 F 83 17 130/87 97 03/11/19 06:00 03/11/19 06:00 03/11/19 06:00 03/11/19 06:00 03/11/19 08:09 Active Medications Acetaminophen (Tylenol -) 650 mg PO Q4H PRN PRN Reason: PAIN LEVEL 1-5 Albuterol Sulfate (Ventolin 0.083% Nebulizer Soln -) 1 amp NEB Q4H PRN PRN Reason: SHORT OF BREATH/WHEEZING Last Admin: 03/10/19 21:15 Dose: 1 amp Amlodipine Besylate (Norvasc -) 10 mg PO DAILY [facility] Last Admin: 03/10/19 11:42 Dose: 10 mg Heparin Sodium (Porcine) (Heparin -) 5,000 unit SQ BID [facility] Last Admin: 03/10/19 22:43 Dose: 5,000 unit Methylprednisolone Sodium Succinate (Solu-Medrol -) 40 mg IVPB Q12H [facility] Last Admin: 03/11/19 06:16 Dose: 40 mg Pantoprazole Sodium (Protonix -) 40 mg PO DAILY [facility] Last Admin: 03/10/19 11:42 Dose: 40 mg Quetiapine Fumarate (Seroquel -) 50 mg PO HS [facility] Last Admin: 03/10/19 22:43 Dose: 50 mg Tiotropium [place] (Spiriva Respimat) 2 puff IH DAILY [facility] Last Admin: 03/10/19 11:42 Dose: 2 puff Gen: mildly tachypneic with speaking Heart: RRR Lung: distant breath sounds, no active wheeze Abd: soft, nontender Ext: no edema Laboratory Results - last 24 hr 03/11/19 03/11/19 05:44 05:44 WBC 17.8 H RBC 3.83 Hgb 9.9 L Hct 31.1 L MCV 81.2 MCH 25.9 MCHC 31.8 L RDW 16.3 H Plt Count 220 MPV 8.2 Sodium 142 Potassium 4.0 Chloride 100 Carbon Dioxide 39 H Anion Gap 4 L BUN 39.0 H Creatinine 0.8 Est GFR (CKD-EPI)AfAm 88.42 Est GFR (CKD-EPI)NonAf 76.29 Random Glucose 96 Calcium 8.5 A/P Acute on Chronic Hypoxic and Hypercapneic Respiratory Failure improving Pneumonia Septic Shock resolved Lactic Acidosis resolved Acute COPD Exacerbation h/o Lung Ca h/o Breast Ca HTN Anemia - completed antibiotics - medrol taper to Q12h, van likely can change to Prednisone if remains stable/ improved by AM - inhaled bronchodilators - O2 to keep SpO2 >90% - BiPAP at night and PRN during day - DVT prophylaxis Dr Harris
[2019-03-11] MEDS: PANTOPRAZOLE 40 MG TABLET (FP) PO SCH (11:16)
[2019-03-11] MEDS: HEPARIN NA (PORCINE) 5,000 UNITS/ML 1ML VIAL SQ SCH ×2 (11:16→22:06)
[2019-03-11] MEDS: amLODIPine BESYLATE 10 MG TABLET (FP) PO SCH (11:16)
[2019-03-11] MEDS: TIOTROPIUM BROMIDE 2.5 MCG (SPIRIVA) RESPIMAT INHALER IH SCH (11:32)
[2019-03-11] MEDS: QUEtiapine FUMARATE 50 MG TABLET PO SCH (22:06)
[2019-03-11] MEDS: ALBUTEROL SO4 0.083% IH SOL 2.5 MG/3 ML VIAL.NEB. NEB PRN (22:40)
[2019-03-12] MEDS: methylPREDNISolone NA SUCC 40 MG/1 ML VIAL IVPB SCH ×2 (05:47→17:22)
[2019-03-12 05:58] LABS: HEMATOCRIT 28.8 % (32.4-45.2); HEMOGLOBIN 9.3 GM/dL (10.7-15.3); MCH 25.9 pg (25.7-33.7); MCHC 32.2 g/dl (32.0-36.0); MEAN CELL VOLUME 80.6 fl (80-96); MEAN PLT VOLUME 8.3 fl (7.5-11.1); PLATELET COUNT 219 K/MM3 (134-434); RBC 3.57 M/mm3 (3.60-5.2); RDW 16.3 % (11.6-15.6)
[2019-03-12 06:25] LABS: BLOOD UREA NITROGEN 35.4 mg/dL (7-18); CALCIUM 8.8 mg/dL (8.5-10.1); CREATININE 0.9 mg/dL (0.55-1.3); POTASSIUM 4.2 mmol/L (3.5-5.1)
--- NOTE | 2019-03-12 10:03 | PN ---
Progress Note (short form) - Note Progress Note: PULMONARY Breathing slowly improving. Minimal cough. No fevers. Vital Signs Period Temp Pulse Resp BP Sys/Sawyer Pulse Ox Last 24 Hr 97.7 F-98.2 F 79-107 15-22 92-133/76-93 87-97 Intake & Output 03/09/19 03/10/19 03/11/19 03/12/19 23:59 23:59 23:59 23:59 Intake Total 200 510 670 100 Output Total 600 950 Balance -400 -440 670 100 Weight 55.837 kg 54.431 kg 49.351 kg Gen: mildly tachypneic with speaking Heart: RRR Lung: distant breath sounds Abd: soft, nontender Ext: no edema CBC, BMP 03/12/19 05:25 03/12/19 05:25 Active Medications Acetaminophen (Tylenol -) 650 mg PO Q4H PRN PRN Reason: PAIN LEVEL 1-5 Albuterol Sulfate (Ventolin 0.083% Nebulizer Soln -) 1 amp NEB Q4H PRN PRN Reason: SHORT OF BREATH/WHEEZING Last Admin: 03/11/19 22:40 Dose: 1 amp Amlodipine Besylate (Norvasc -) 10 mg PO DAILY [facility] Last Admin: 03/11/19 11:16 Dose: 10 mg Heparin Sodium (Porcine) (Heparin -) 5,000 unit SQ BID [facility] Last Admin: 03/11/19 22:06 Dose: 5,000 unit Methylprednisolone Sodium Succinate (Solu-Medrol -) 40 mg IVPB Q12H [facility] Last Admin: 03/12/19 05:47 Dose: 40 mg Pantoprazole Sodium (Protonix -) 40 mg PO DAILY [facility] Last Admin: 03/11/19 11:16 Dose: 40 mg Quetiapine Fumarate (Seroquel -) 50 mg PO HS [facility] Last Admin: 03/11/19 22:06 Dose: 50 mg Tiotropium [place] (Spiriva Respimat) 2 puff IH DAILY [facility] Last Admin: 03/11/19 11:32 Dose: 2 puff A/P Acute on Chronic Hypoxic and Hypercapneic Respiratory Failure improving Pneumonia Septic Shock resolved Lactic Acidosis resolved Acute COPD Exacerbation h/o Lung Ca h/o Breast Ca HTN Anemia - completed antibiotics - medrol taper, can likely change to PO prednisone 40mg daily - inhaled bronchodilators - O2 to keep SpO2 >90% - BiPAP at night and PRN during day - rehab/PT - DVT prophylaxis
[2019-03-12] MEDS: amLODIPine BESYLATE 10 MG TABLET (FP) PO SCH (10:07)
[2019-03-12] MEDS: PANTOPRAZOLE 40 MG TABLET (FP) PO SCH (10:07)
[2019-03-12] MEDS: HEPARIN NA (PORCINE) 5,000 UNITS/ML 1ML VIAL SQ SCH ×2 (10:07→21:39)
[2019-03-12] MEDS: TIOTROPIUM BROMIDE 2.5 MCG (SPIRIVA) RESPIMAT INHALER IH SCH (10:08)
[2019-03-12 14:05] VITALS: BMI 20.4
--- NOTE | 2019-03-12 16:16 | PN ---
Physical Exam: SUBJECTIVE: Patient seen and examined PT IS BETTER , she is out of bed and walked in toth way no distress she is using bipap at night , no nausea or vomiting OBJECTIVE: Vital Signs Period Temp Pulse Resp BP Sys/Sawyer Pulse Ox Last 24 Hr 97.7 F-98.2 F 79-107 15-22 92-132/76-90 87-96 GENERAL: The patient is awake, alert, and fully oriented, in no acute distress. HEAD: Normal with no signs of trauma. EYES: PERRL, extraocular movements intact, sclera anicteric, conjunctiva clear. No ptosis. ENT: Ears normal, nares patent, oropharynx clear without exudates, moist mucous membranes. NECK: Trachea midline, full range of motion, supple. LUNGS: Breath sounds equal, clear to auscultation bilaterally, trace wheezes, no crackles, no accessory muscle use. HEART: Regular rate and rhythm, S1, S2 without murmur, rub or gallop. ABDOMEN: Soft, nontender, nondistended, normoactive bowel sounds, no guarding, no rebound, no hepatosplenomegaly, no masses. EXTREMITIES: 2+ pulses, warm, well-perfused, no edema. NEUROLOGICAL: Cranial nerves II through XII grossly intact. Normal speech, gait not observed. PSYCH: Normal mood, normal affect. SKIN: Warm, dry, normal turgor, no rashes or lesions noted Laboratory Results - last 24 hr 03/12/19 03/12/19 05:25 05:25 WBC 14.0 H RBC 3.57 L Hgb 9.3 L Hct 28.8 L MCV 80.6 MCH 25.9 MCHC 32.2 RDW 16.3 H Plt Count 219 MPV 8.3 Sodium 142 Potassium 4.2 Chloride 99 Carbon Dioxide 37 H Anion Gap 5 L BUN 35.4 H Creatinine 0.9 Est GFR (CKD-EPI)AfAm 76.68 Est GFR (CKD-EPI)NonAf 66.16 Random Glucose 110 H Calcium 8.8 Active Medications Generic Name Dose Route Start Last Admin Trade Name Freq PRN Reason Stop Dose Admin Acetaminophen 650 mg 03/08/19 14:55 Tylenol - PO Q4H PRN PAIN LEVEL 1-5 Albuterol Sulfate 1 amp 03/09/19 09:09 03/11/19 22:40 Ventolin 0.083% Nebulizer Soln - NEB 1 amp Q4H PRN Administration SHORT OF BREATH/WHEEZING Amlodipine Besylate 10 mg 03/09/19 10:00 03/12/19 10:07 Norvasc - PO 10 mg DAILY [facility] Administration Heparin Sodium (Porcine) 5,000 unit 03/08/19 22:00 03/12/19 10:07 Heparin - SQ 5,000 unit BID [facility] Administration Methylprednisolone Sodium Succinate 40 mg 03/10/19 18:00 03/12/19 05:47 Solu-Medrol - IVPB 40 mg Q12H [facility] Administration Pantoprazole Sodium 40 mg 03/09/19 10:00 03/12/19 10:07 Protonix - PO 40 mg DAILY [facility] Administration Quetiapine Fumarate 50 mg 03/08/19 22:00 03/11/19 22:06 Seroquel - PO 50 mg HS [facility] Administration Tiotropium [place] 2 puff 03/09/19 10:00 03/12/19 10:08 Spiriva Respimat IH 2 puff DAILY [facility] Administration ASSESSMENT/PLAN: Acute on Chronic Hypoxic and Hypercapneic Respiratory Failure improving - on bipap and nebulizer and tapering medrol dose Pneumonia -better off abx Septic Shock -resolved Lactic Acidosis -resolved Acute COPD Exacerbation h/o Lung Ca h/o Breast Ca HTN on amlodipine Anemia - due to chronic disease and will monitor - DVT prophylaxis discussed with patient and for needs for rehab. Visit type - Emergency Visit Emergency Visit: Yes ED Registration Date: 02/26/19 Care time: The patient presented to the Emergency Department on the above date and was hospitalized for further evaluation of their emergent condition. - New Patient This patient is new to me today: Yes Date on this admission: 03/12/19 - Critical Care Critical Care patient: No - Discharge Referral Referred to [facility] Med P.C[facility] No
[2019-03-12] MEDS: QUEtiapine FUMARATE 50 MG TABLET PO SCH (21:39)
[2019-03-13] MEDS: methylPREDNISolone NA SUCC 40 MG/1 ML VIAL IVPB SCH (05:47)
--- NOTE | 2019-03-13 10:29 | PN ---
Progress Note (short form) - Note Progress Note: PULMONARY Breathing slowly improving. Minimal cough. No fevers. Vital Signs Period Temp Pulse Resp BP Sys/Sawyer Pulse Ox Last 24 Hr 97.7 F-98.6 F 67-109 15-21 96-134/70-95 87-100 Gen: mildly tachypneic with speaking Heart: RRR Lung: distant breath sounds Abd: soft, nontender Ext: no edema CBC, BMP 03/12/19 05:25 03/12/19 05:25 Active Medications Acetaminophen (Tylenol -) 650 mg PO Q4H PRN PRN Reason: PAIN LEVEL 1-5 Albuterol Sulfate (Ventolin 0.083% Nebulizer Soln -) 1 amp NEB Q4H PRN PRN Reason: SHORT OF BREATH/WHEEZING Last Admin: 03/11/19 22:40 Dose: 1 amp Amlodipine Besylate (Norvasc -) 10 mg PO DAILY [facility] Last Admin: 03/12/19 10:07 Dose: 10 mg Heparin Sodium (Porcine) (Heparin -) 5,000 unit SQ BID [facility] Last Admin: 03/12/19 21:39 Dose: 5,000 unit Methylprednisolone Sodium Succinate (Solu-Medrol -) 40 mg IVPB Q12H [facility] Last Admin: 03/13/19 05:47 Dose: 40 mg Pantoprazole Sodium (Protonix -) 40 mg PO DAILY [facility] Last Admin: 03/12/19 10:07 Dose: 40 mg Quetiapine Fumarate (Seroquel -) 50 mg PO HS [facility] Last Admin: 03/12/19 21:39 Dose: 50 mg Tiotropium [place] (Spiriva Respimat) 2 puff IH DAILY [facility] Last Admin: 03/12/19 10:08 Dose: 2 puff A/P Acute on Chronic Hypoxic and Hypercapneic Respiratory Failure improving Pneumonia Septic Shock resolved Lactic Acidosis resolved Acute COPD Exacerbation h/o Lung Ca h/o Breast Ca HTN Anemia - completed antibiotics - medrol taper, can change to PO prednisone 40mg daily - inhaled bronchodilators - O2 to keep SpO2 >90% - BiPAP at night and PRN during day - rehab/PT - DVT prophylaxis - would consider inpatient pulmonary rehab
[2019-03-13] MEDS: PANTOPRAZOLE 40 MG TABLET (FP) PO SCH (11:00)
[2019-03-13] MEDS: amLODIPine BESYLATE 10 MG TABLET (FP) PO SCH (11:00)
[2019-03-13] MEDS: HEPARIN NA (PORCINE) 5,000 UNITS/ML 1ML VIAL SQ SCH ×2 (11:00→21:22)
[2019-03-13] MEDS: TIOTROPIUM BROMIDE 2.5 MCG (SPIRIVA) RESPIMAT INHALER IH SCH (11:00)
[2019-03-13] MEDS ORDERED: PT OWN MED DRAWER 7, Y5N ONE (11:05)
--- NOTE | 2019-03-13 12:31 | PN ---
Physical Exam: SUBJECTIVE: Patient seen and examined She is seen by pulmonary today and she is better oob and comfortable OBJECTIVE: Vital Signs Period Temp Pulse Resp BP Sys/Sawyer Pulse Ox Last 24 Hr 97.7 F-98.6 F 67-109 15-21 96-134/70-95 87-100 GENERAL: The patient is awake, alert, and fully oriented, in no acute distress. HEAD: Normal with no signs of trauma. EYES: PERRL, extraocular movements intact, sclera anicteric, conjunctiva clear. No ptosis. ENT: Ears normal, nares patent, oropharynx clear without exudates, moist mucous membranes. NECK: supple. LUNGS: Breath sounds equal, clear to auscultation bilaterally, no wheezes, no crackles, no accessory muscle use. HEART: Regular rate and rhythm, S1, S2 without murmur, rub or gallop. ABDOMEN: Soft, nontender, nondistended, normoactive bowel sounds, no guarding, no rebound, no hepatosplenomegaly, no masses. EXTREMITIES: 2+ pulses, warm, well-perfused, no edema. NEUROLOGICAL: Cranial nerves II through XII grossly intact. Normal speech, gait not observed. Active Medications Generic Name Dose Route Start Last Admin Trade Name Freq PRN Reason Stop Dose Admin Acetaminophen 650 mg 03/08/19 14:55 Tylenol - PO Q4H PRN PAIN LEVEL 1-5 Albuterol Sulfate 1 amp 03/09/19 09:09 03/11/19 22:40 Ventolin 0.083% Nebulizer Soln - NEB 1 amp Q4H PRN Administration SHORT OF BREATH/WHEEZING Amlodipine Besylate 10 mg 03/09/19 10:00 03/13/19 11:00 Norvasc - PO 10 mg DAILY BRIE Administration Heparin Sodium (Porcine) 5,000 unit 03/08/19 22:00 03/13/19 11:00 Heparin - SQ 5,000 unit BID BRIE Administration Pantoprazole Sodium 40 mg 03/09/19 10:00 03/13/19 11:00 Protonix - PO 40 mg DAILY BRIE Administration Prednisone 20 mg 03/13/19 12:30 Deltasone - PO BID BRIE Quetiapine Fumarate 50 mg 03/08/19 22:00 03/12/19 21:39 Seroquel - PO 50 mg HS BRIE Administration Tiotropium [place] 2 puff 03/09/19 10:00 03/13/19 11:00 Spiriva Respimat IH 2 puff DAILY BRIE Administration ASSESSMENT/PLAN: Acute on Chronic Hypoxic and Hypercapneic Respiratory Failure improving - on bipap and nebulizer and change medrol to po prednisone 40 mg divided dose . Pneumonia -better off abx Septic Shock -resolved Lactic Acidosis -resolved HTN on amlodipine Anemia - due to chronic disease and will monitor - DVT prophylaxis Visit type - Emergency Visit Emergency Visit: Yes ED Registration Date: 02/26/19 Care time: The patient presented to the Emergency Department on the above date and was hospitalized for further evaluation of their emergent condition. - New Patient This patient is new to me today: No - Critical Care Critical Care patient: No - Discharge Referral Referred to [facility] No
[2019-03-13] MEDS: predniSONE 20 MG TABLET (UD) PO SCH ×2 (13:30→21:22)
[2019-03-13] MEDS: QUEtiapine FUMARATE 50 MG TABLET PO SCH (21:22)
[2019-03-14] MEDS: ALBUTEROL SO4 0.083% IH SOL 2.5 MG/3 ML VIAL.NEB. NEB PRN ×2 (07:53→14:32)
[2019-03-14] MEDS: predniSONE 20 MG TABLET (UD) PO SCH ×2 (09:36→21:02)
[2019-03-14] MEDS: HEPARIN NA (PORCINE) 5,000 UNITS/ML 1ML VIAL SQ SCH ×2 (09:36→21:03)
[2019-03-14] MEDS: amLODIPine BESYLATE 10 MG TABLET (FP) PO SCH (09:36)
[2019-03-14] MEDS: PANTOPRAZOLE 40 MG TABLET (FP) PO SCH (09:36)
[2019-03-14] MEDS: TIOTROPIUM BROMIDE 2.5 MCG (SPIRIVA) RESPIMAT INHALER IH SCH (09:36)
--- NOTE | 2019-03-14 11:34 | PN ---
Progress Note (short form) - Note Progress Note: PULMONARY Breathing slowly improving. Minimal cough. No fevers. Vital Signs Period Temp Pulse Resp BP Sys/Sawyer Pulse Ox Last 24 Hr 98.2 F 64-108 14-21 104-117/64-83 99-100 Gen: mildly tachypneic with speaking Heart: RRR Lung: distant breath sounds Abd: soft, nontender Ext: no edema CBC, BMP 03/12/19 05:25 03/12/19 05:25 Active Medications Acetaminophen (Tylenol -) 650 mg PO Q4H PRN PRN Reason: PAIN LEVEL 1-5 Albuterol Sulfate (Ventolin 0.083% Nebulizer Soln -) 1 amp NEB Q4H PRN PRN Reason: SHORT OF BREATH/WHEEZING Last Admin: 03/14/19 07:53 Dose: 1 amp Amlodipine Besylate (Norvasc -) 10 mg PO DAILY [facility] Last Admin: 03/14/19 09:36 Dose: 10 mg Heparin Sodium (Porcine) (Heparin -) 5,000 unit SQ BID [facility] Last Admin: 03/14/19 09:36 Dose: 5,000 unit Pantoprazole Sodium (Protonix -) 40 mg PO DAILY [facility] Last Admin: 03/14/19 09:36 Dose: 40 mg Prednisone (Deltasone -) 20 mg PO BID [facility] Last Admin: 03/14/19 09:36 Dose: 20 mg Quetiapine Fumarate (Seroquel -) 50 mg PO HS [facility] Last Admin: 03/13/19 21:22 Dose: 50 mg Tiotropium [place] (Spiriva Respimat) 2 puff IH DAILY [facility] Last Admin: 03/14/19 09:36 Dose: 2 puff A/P Acute on Chronic Hypoxic and Hypercapneic Respiratory Failure improving Pneumonia Septic Shock resolved Lactic Acidosis resolved Acute COPD Exacerbation h/o Lung Ca h/o Breast Ca HTN Anemia - completed antibiotics - prednisone taper - inhaled bronchodilators - O2 to keep SpO2 >90% - BiPAP at night and PRN during day - rehab/PT - DVT prophylaxis - agree with inpatient pulmonary rehab
--- NOTE | 2019-03-14 12:27 | PN ---
Progress Note (short form) - Note Progress Note: HPI: No overnight events. No telemetry events. BiPap at night. PE: Gen: NAD, awake, alert, oriented x3 HEENT: NC/AT, JOSE, MMM Neck: No JVD LUNG: Distant sounds, no overt wheezing, tachypneic with speaking. On 2LNC Heart: RRR no murmurs Abd: soft, Nt/ND, normoactive BS Ext: no edema CBC, BMP 03/12/19 05:25 03/12/19 05:25 Active Medications Acetaminophen (Tylenol -) 650 mg PO Q4H PRN PRN Reason: PAIN LEVEL 1-5 Albuterol Sulfate (Ventolin 0.083% Nebulizer Soln -) 1 amp NEB Q4H PRN PRN Reason: SHORT OF BREATH/WHEEZING Last Admin: 03/14/19 14:32 Dose: 1 amp Amlodipine Besylate (Norvasc -) 10 mg PO DAILY [facility] Last Admin: 03/14/19 09:36 Dose: 10 mg Heparin Sodium (Porcine) (Heparin -) 5,000 unit SQ BID [facility] Last Admin: 03/14/19 21:03 Dose: 5,000 unit Pantoprazole Sodium (Protonix -) 40 mg PO DAILY [facility] Last Admin: 03/14/19 09:36 Dose: 40 mg Prednisone (Deltasone -) 20 mg PO BID [facility] Last Admin: 03/14/19 21:02 Dose: 20 mg Quetiapine Fumarate (Seroquel -) 50 mg PO HS [facility] Last Admin: 03/14/19 21:02 Dose: 50 mg Tiotropium [place] (Spiriva Respimat) 2 puff IH DAILY [facility] Last Admin: 03/14/19 09:36 Dose: 2 puff Microbiology 03/10/19 20:00 Sputum - Expectorated Gram Stain - Final 03/10/19 20:00 Sputum - Expectorated Sputum Culture - Final NORMAL RESPIRATORY ABBIE 02/26/19 12:00 Blood - Peripheral Venous Blood Culture - Final NO GROWTH AFTER 5 DAYS INCUBATION 02/26/19 12:00 Blood - Peripheral Venous Blood Culture - Final NO GROWTH AFTER 5 DAYS INCUBATION 02/27/19 00:20 Sputum - Endotrachea Suction/Ventilator Gram Stain - Final 02/27/19 00:20 Sputum - Endotrachea Suction/Ventilator Sputum Culture - Final NORMAL RESPIRATORY ABBIE 02/27/19 11:00 Urine For Antigen Detection Legionella Antigen - Final 02/27/19 11:00 Urine For Antigen Detection Streptococcus pneumoniae Antigen (M - Final 02/26/19 13:40 Urine - Urine - Catheterized Urine Culture - Final NO GROWTH OBTAINED A/P: Acute on chronic hypoxic hypercapenic respiratory failure COPD Exacerbation (improving) Hypertensive Urgency (resolved) Septic shock 2/2 to pneumococcal pneumonia (resolved) Lactic acidosis (resolved) Acute anemia (improved) --CT abd and chest reviewed; lung scarring noted which was previously seen on CXR as a nodule --Pt completed total 9 day course of IV ABX for pneumococcal pneumonia --resolving infiltrates noted on CT Chest --Prednisone 20mg BID PO continued --Maintain SpO2 >90% --Physical therapy note reviewed: pt walked 50 ft; needs pulmonary rehab --Social work/CM notified --Continue Spiriva --Albuterol PRN for SOB/wheezing --Continue Norvasc 10mg qdaily --Continue Seroquel 50mg HS PO --Appreciate all presales consultant recommendations FEN: Fluids: none; encourage PO intake Electrolyte abnormalities: None today Nutrition: Soft diet (sodium controlled) PPX: DVT - Heparin BID SQ GI - protonix 40mg PO Dispo: Awaiting pulmonary rehab facility placement Case discussed with Jose C Conway DO - IM PGY-3 <Wilber Conway - Last Filed: 03/14/19 21:52> - Note Progress Note: I have seen and examined the indicated patient independently/along with the resident team. I have personally verified all mariscal exam findings and historical components. I have personally interpreted all diagnostics indicated per todays orders and reviewed interpretation of indicated subspecialty services. This patient meets a high level of medical complexity and warrants indicated LOC to avoid decompensation and worsening of the indicated illness. S: Agree with historical findings as outlined in resident documentation regarding history of present illness. No further events communicated to myself from overnight. Ding well on medical floor and pending DC to [facility] system ROS completed and is negative aside from indicated issues in the subjective/HPI Medication list reviewed; as documented per orders and above. O: All vital signs reviewed per ER records and are as per EMR NAD, AAO, Resting in bed NC AT EOMI PERRLA Neck supple, trachea midline, no cassia LN RRR s1/2 Lungs CTAB, w/ sym expansion NT ND +BS No skin breakdown or rashes noted CN2-12 wnl, no new focal deficits noted Muscle tone normal, no deficits in motor function or strength noted Normal mood, appropriate behavior, average insight A/P: -Acute on chronic mixed respiratory failure requiring mechanical ventillation; on NC and will need pulm rehab and chronic O2 -Septic Shock secondary to pneumococcal pneumonia, completed abx. -Sinus Bradycardia, resolved. -Elevated BNP -Hx Lung cancer -Hx COPD on home O2, PFTs unknown -Septic shock vs. hypotension 2/2 induction in the setting of respiratory failure-on broad spectrum and w/o fever, pending ID consult -Hypoalbuminemia -HypooMg -HyperK -Hx Gastric CA She is pending discharge to [place] for pulmonary rehabilitation due to the degree of pulmonary deconditioning noted. She remains stable and will be monitored on the medicine service until the time of DC. <Eric Woodall - Last Filed: 03/15/19 13:47>
[2019-03-14] MEDS: QUEtiapine FUMARATE 50 MG TABLET PO SCH (21:02)
[2019-03-15 06:48] LABS: HEMATOCRIT 29.4 % (32.4-45.2); HEMOGLOBIN 9.2 GM/dL (10.7-15.3); MCH 25.8 pg (25.7-33.7); MCHC 31.4 g/dl (32.0-36.0); MEAN PLT VOLUME 9.4 fl (7.5-11.1); PLATELET COUNT 218 K/MM3 (134-434); RBC 3.58 M/mm3 (3.60-5.2); RDW 16.7 % (11.6-15.6); WHITE BLOOD COUNT 12.4 K/mm3 (4.0-10.0)
[2019-03-15 07:18] LABS: BLOOD UREA NITROGEN 29.6 mg/dL (7-18); CALCIUM 8.7 mg/dL (8.5-10.1); CREATININE 0.7 mg/dL (0.55-1.3); POTASSIUM 4.5 mmol/L (3.5-5.1)
[2019-03-15] MEDS: ALBUTEROL SO4 0.083% IH SOL 2.5 MG/3 ML VIAL.NEB. NEB PRN (08:10)
[2019-03-15] MEDS: amLODIPine BESYLATE 10 MG TABLET (FP) PO SCH (09:48)
[2019-03-15] MEDS: predniSONE 20 MG TABLET (UD) PO SCH ×2 (09:48→21:04)
[2019-03-15] MEDS: PANTOPRAZOLE 40 MG TABLET (FP) PO SCH (09:48)
[2019-03-15] MEDS: HEPARIN NA (PORCINE) 5,000 UNITS/ML 1ML VIAL SQ SCH ×2 (09:49→21:04)
[2019-03-15] MEDS: TIOTROPIUM BROMIDE 2.5 MCG (SPIRIVA) RESPIMAT INHALER IH SCH (09:49)
--- NOTE | 2019-03-15 12:22 | PN ---
Progress Note (short form) - Note Progress Note: PULMONARY Breathing continues to slowly improve. Minimal cough. No fevers. Vital Signs Period Temp Pulse Resp BP Sys/Sawyer Pulse Ox Last 24 Hr 97.2 F-98.7 F 66-117 15-21 96-129/64-90 97-100 Gen: mildly tachypneic with speaking Heart: RRR Lung: distant breath sounds Abd: soft, nontender Ext: no edema CBC, BMP 03/15/19 05:50 03/15/19 05:50 Active Medications Acetaminophen (Tylenol -) 650 mg PO Q4H PRN PRN Reason: PAIN LEVEL 1-5 Albuterol Sulfate (Ventolin 0.083% Nebulizer Soln -) 1 amp NEB Q4H PRN PRN Reason: SHORT OF BREATH/WHEEZING Last Admin: 03/15/19 08:10 Dose: 1 amp Amlodipine Besylate (Norvasc -) 10 mg PO DAILY [facility] Last Admin: 03/15/19 09:48 Dose: 10 mg Heparin Sodium (Porcine) (Heparin -) 5,000 unit SQ BID [facility] Last Admin: 03/15/19 09:49 Dose: 5,000 unit Pantoprazole Sodium (Protonix -) 40 mg PO DAILY [facility] Last Admin: 03/15/19 09:48 Dose: 40 mg Prednisone (Deltasone -) 20 mg PO BID [facility] Last Admin: 03/15/19 09:48 Dose: 20 mg Quetiapine Fumarate (Seroquel -) 50 mg PO HS [facility] Last Admin: 03/14/19 21:02 Dose: 50 mg Tiotropium [place] (Spiriva Respimat) 2 puff IH DAILY [facility] Last Admin: 03/15/19 09:49 Dose: 2 puff A/P Acute on Chronic Hypoxic and Hypercapneic Respiratory Failure improving Pneumonia Septic Shock resolved Lactic Acidosis resolved Acute COPD Exacerbation h/o Lung Ca h/o Breast Ca HTN Anemia - completed antibiotics - prednisone taper - inhaled bronchodilators - O2 to keep SpO2 >90% - BiPAP at night and PRN during day - rehab/PT - DVT prophylaxis - agree with inpatient pulmonary rehab
--- NOTE | 2019-03-15 13:47 | DS ---
Physical Exam: SUBJECTIVE: Patient seen and examined; no new complaints. Pending DC to rehab; she is accepted but pending bed as of this afternoon. She states her SOB is improved to baseline and her cough has resolved. Denied CP. Has benefitted maximally from hospitalization. 10 sys ROS done and negative aside from HPI OBJECTIVE: Vital Signs Period Temp Pulse Resp BP Sys/Sawyer Pulse Ox Last 24 Hr 97.2 F-98.7 F 66-117 15-21 96-129/64-90 97-100 PHYSICAL EXAM GENERAL: The patient is awake, alert, and fully oriented, in no acute distress. On 2L O2 via NC. HEAD: Normal with no signs of trauma. EYES: PERRL, extraocular movements intact, sclera anicteric, conjunctiva clear. ENT: Ears normal, nares patent, oropharynx clear without exudates, moist mucous membranes. NECK: Trachea midline, full range of motion, supple. LUNGS: Breath sounds equal, clear to auscultation bilaterally today with prolonged expiratory phase, no wheezes, no crackles, no accessory muscle use. HEART: Regular rate and rhythm, S1, S2 without murmur, rub or gallop. ABDOMEN: Soft, nontender, nondistended, normoactive bowel sounds, no guarding EXTREMITIES: 2+ pulses, warm, well-perfused, no edema. NEUROLOGICAL: Cranial nerves II through XII grossly intact. Normal speech, gait not observed. PSYCH: Normal mood, normal affect. SKIN: Warm, dry, normal turgor, no rashes or lesions noted. LABS Laboratory Results - last 24 hr 03/15/19 03/15/19 05:50 05:50 WBC 12.4 H RBC 3.58 L Hgb 9.2 L Hct 29.4 L MCV 82.0 MCH 25.8 MCHC 31.4 L RDW 16.7 H Plt Count 218 MPV 9.4 D Sodium 141 Potassium 4.5 Chloride 103 Carbon Dioxide 34 H Anion Gap 4 L BUN 29.6 H Creatinine 0.7 Est GFR (CKD-EPI)AfAm 103.91 Est GFR (CKD-EPI)NonAf 89.65 Random Glucose 110 H Calcium 8.7 HOSPITAL COURSE: Date of Admission:02/26/19 Date of Discharge: 03/15/19 -Acute on chronic mixed respiratory failure requiring mechanical ventillation; on NC and will need pulm rehab and chronic O2 -Septic Shock secondary to pneumococcal pneumonia, completed abx. -Sinus Bradycardia, resolved. -Elevated BNP -Hx Lung cancer -Hx COPD on home O2, PFTs unknown -Septic shock vs. hypotension 2/2 induction in the setting of respiratory failure-on broad spectrum and w/o fever, pending ID consult -Hypoalbuminemia -HypooMg -HyperK -Hx Gastric CA Echo, EKG, and Imaging [facility]. Followup will be imperitive with PCP, Oncology, Pulmonary Instructed when to return to ER; unfortunately she is at high risk for bounce backs due to her high propensity for decompensation due to her severe underlying COPD and her underlying oncologic issues. She is pending discharge to [place] for pulmonary rehabilitation due to the degree of pulmonary deconditioning noted. She remains stable and will be monitored on the medicine service until the time of DC. She is accepted pending bed. Minutes to complete discharge: 33 Discharge Summary Problems reviewed: Yes Reason For Visit: ACUTE RESPIRATORY FAILURE WITH HYPOXIMIA Current Active Problems Gastritis (Acute) HTN (hypertension) (Acute) Prophylactic measure (Acute) Respiratory distress (Acute) Condition: Improved - Instructions Referrals: Joao Chilel MD [Primary Care Provider] - - Home Medications Comprehensive Discharge Medication List: Ambulatory Orders Amlodipine Besylate [Norvasc -] 5 mg PO DAILY 05/19/18 Albuterol 0.083% Nebulizer [place] [Ventolin 0.083% Nebulizer Soln -] 1 amp NEB RQID amp 06/03/18 Budesonide/Formeterol Fumarate [SYMBICORT 160/4.5mcg -] 2 puff IH BID inhaler 06/03/18 Pantoprazole Sodium [Protonix -] 40 mg PO DAILY tablet.ec 06/03/18 Valacyclovir HCl [Valtrex -] 500 mg PO BID tablet 06/03/18 traZODone HCL [Desyrel -] 50 mg PO HS tablet 06/03/18 This patient is new to me today: No Emergency Visit: No Critical Care patient: No - Discharge Referral Referred to [facility] No
[2019-03-15] MEDS: QUEtiapine FUMARATE 50 MG TABLET PO SCH (21:04)
[2019-03-16 06:18] LABS: HEMATOCRIT 30.1 % (32.4-45.2); HEMOGLOBIN 9.6 GM/dL (10.7-15.3); MCH 26.4 pg (25.7-33.7); MCHC 31.9 g/dl (32.0-36.0); MEAN CELL VOLUME 82.7 fl (80-96); MEAN PLT VOLUME 8.8 fl (7.5-11.1); PLATELET COUNT 194 K/MM3 (134-434); RBC 3.64 M/mm3 (3.60-5.2); RDW 17.4 % (11.6-15.6); WHITE BLOOD COUNT 11.4 K/mm3 (4.0-10.0)
[2019-03-16 07:28] LABS: BLOOD UREA NITROGEN 29.1 mg/dL (7-18); CALCIUM 8.4 mg/dL (8.5-10.1); CREATININE 0.6 mg/dL (0.55-1.3); POTASSIUM 4.6 mmol/L (3.5-5.1)
[2019-03-16] MEDS: amLODIPine BESYLATE 10 MG TABLET (FP) PO SCH (10:46)
[2019-03-16] MEDS: predniSONE 20 MG TABLET (UD) PO SCH (10:46)
[2019-03-16] MEDS: PANTOPRAZOLE 40 MG TABLET (FP) PO SCH (10:46)
[2019-03-16] MEDS: HEPARIN NA (PORCINE) 5,000 UNITS/ML 1ML VIAL SQ SCH (10:46)
[2019-03-16] MEDS: TIOTROPIUM BROMIDE 2.5 MCG (SPIRIVA) RESPIMAT INHALER IH SCH (10:47)
[2019-03-16 11:13] VITALS: BP 141/79; PULSE 84; TEMP 98.4
--- NOTE | 2019-03-16 11:29 | PN ---
Progress Note (short form) - Note Progress Note: HPI: No overnight events. No telemetry events. BiPap at night. Pt stayed due to not having available bed. PE: Gen: NAD, awake, alert, oriented x3 HEENT: NC/AT, JOSE, MMM Neck: No JVD LUNG: Distant sounds, no overt wheezing, tachypneic with speaking. On 3LNC Heart: RRR no murmurs Abd: soft, Nt/ND, normoactive BS Ext: no edema A/P: Acute on chronic hypoxic hypercapenic respiratory failure (resolving) COPD Exacerbation (improving) Hypertensive Urgency (resolved) Septic shock 2/2 to pneumococcal pneumonia (resolved) Lactic acidosis (resolved) Acute anemia (improved) -Pt requires continued physical and pulmonary rehabilitation --Pt to continue meds as below with prednisone taper: 20mg BID today, tomorrow, 10mg BID x3 days, 10mg daily x3 days Rest as per discharge summary prior to this note
--- NOTE | 2019-03-16 12:00 | PN ---
Progress Note (short form) - Note Progress Note: PULMONARY Breathing continues to slowly improve. For transfer to [place] today. Vital Signs Period Temp Pulse Resp BP Sys/Sawyer Pulse Ox Last 24 Hr 97.9 F-98.5 F 70-114 16-18 88-141/64-83 98-100 Gen: mildly tachypneic with speaking Heart: RRR Lung: distant breath sounds Abd: soft, nontender Ext: no edema CBC, BMP 03/16/19 05:44 03/16/19 05:44 A/P Acute on Chronic Hypoxic and Hypercapneic Respiratory Failure improving Pneumonia Septic Shock resolved Lactic Acidosis resolved Acute COPD Exacerbation h/o Lung Ca h/o Breast Ca HTN Anemia - completed antibiotics - prednisone taper - inhaled bronchodilators - O2 to keep SpO2 >90% - BiPAP at night and PRN during day - rehab/PT - DVT prophylaxis - for [facility] placement
== END 2019-03-16 11:40 | DRG 870 ==
LOC: JER 12:02 → JERBED 13:21 → JICU 02-27 00:02 → J2W 03-08 15:56
PROVIDERS: ADMIT Internal Medicine; ATTEND Internal Medicine
PROC: 5A1955Z Respiratory Ventilation, Greater than 96 Consecutive Hours (ICD-10-PCS; principal; 2019-02-26)
PROC: 0BH17EZ Insertion of Endotracheal Airway into Trachea, Via Natural or Artificial Opening (ICD-10-PCS; 2019-02-26)
PROC: 02HV33Z Insertion of Infusion Device into Superior Vena Cava, Percutaneous Approach (ICD-10-PCS; 2019-02-26)
PROC: B548ZZA Ultrasonography of Superior Vena Cava, Guidance (ICD-10-PCS; 2019-02-26)
DX: A41.9 Sepsis, unspecified organism (principal); R65.21 Severe sepsis with septic shock; J96.01 Acute respiratory failure with hypoxia; J96.02 Acute respiratory failure with hypercapnia; J13 Pneumonia due to Streptococcus pneumoniae; J44.1 Chronic obstructive pulmonary disease with (acute) exacerbation; E87.2 Acidosis; I10 Essential (primary) hypertension; Z87.891 Personal history of nicotine dependence; Z99.81 Dependence on supplemental oxygen; C50.911 Malignant neoplasm of unspecified site of right female breast; Z85.118 Personal history of other malignant neoplasm of bronchus and lung; K29.60 Other gastritis without bleeding; E88.09 Other disorders of plasma-protein metabolism, not elsewhere classified; E87.5 Hyperkalemia; E83.42 Hypomagnesemia; I45.81 Long QT syndrome; G90.2 Horner's syndrome; I36.1 Nonrheumatic tricuspid (valve) insufficiency; I34.0 Nonrheumatic mitral (valve) insufficiency; I16.0 Hypertensive urgency; R00.1 Bradycardia, unspecified; R91.1 Solitary pulmonary nodule; D63.8 Anemia in other chronic diseases classified elsewhere
CPT/HCPCS: 36415; 36600; 70450-TC; 71045-TC-FY; 71250-TC; 71260-TC; 74177-TC; 80048; 80053; 80074; 81003; 82550; 82607; 82746; 82803; 82962; 83036; 83540; 83550; 83605; 83735; 83880; 84100; 84132; 84484; 85025; 85027; 85044; 85610; 85730; 86850; 86900; 86901; 87040; 87070; 87086; 87205; 87633; 87804; 87899; 93005; 93010; 93306-TC; 94002; 94640; 94660; 94761; 97116-GP; 97162-GP; 99285-25; J0131; J1644; J7030; Q9967

== ENCOUNTER 2020-11-21 22:33 | Inpatient (IN) | payer OTHER ==
[2020-11-22] MEDS ORDERED: SODIUM CHLORIDE 1,225 ML IV ONE (00:24)
[2020-11-22] MEDS ORDERED: ACETAMINOPHEN 1000 MG/100 ML VIAL (NON FORMULARY) IVPB ONE (00:26)
[2020-11-22] MEDS ORDERED: METOCLOPRAMIDE HCL INJECTION 10 MG/2 ML VIAL IVPUSH ONE (00:26)
[2020-11-22] MEDS ORDERED: methylPREDNISolone NA SUCC 125 MG/2 ML VIAL IVPUSH ONE (00:26)
[2020-11-22] MEDS ORDERED: ALBUTEROL SO4 2.5/IPRATROPIUM 0.5 INH SOL 3 ML VIAL.NEB. NEB SCH (00:30)
[2020-11-22] MEDS ORDERED: ALBUTEROL SO4 2.5/IPRATROPIUM 0.5 INH SOL 3 ML VIAL.NEB. NEB ONE (00:41)
[2020-11-22] MEDS ORDERED: LEVALBUTEROL HCL 0.63 MG/3 ML VIAL.NEB. IH ONE (00:45)
[2020-11-22] MEDS ORDERED: METOCLOPRAMIDE HCL INJECTION 10 MG/2 ML VIAL ONE (01:11)
[2020-11-22] MEDS ORDERED: methylPREDNISolone NA SUCC 125 MG/2 ML VIAL ONE (01:12)
[2020-11-22] MEDS ORDERED: ACETAMINOPHEN INJECTION 100 ML IVPB ONE (01:12)
[2020-11-22 02:00] LABS: BASO % 0.3 % (0-2.0); HEMATOCRIT 33.2 % (32.4-45.2); HEMOGLOBIN 10.4 GM/dL (10.7-15.3); LYMPH % 0.8 % (8-40); MCHC 31.4 g/dl (32.0-36.0); MEAN CELL VOLUME 79.6 fl (80-96); MEAN PLT VOLUME 8.9 fl (7.5-11.1); MONO % 6.4 % (3.8-10.2); NEUT % 92.5 % (42.8-82.8); PLATELET COUNT 232 10^3/uL (134-434); RBC 4.17 M/mm3 (3.60-5.2); RDW 16.3 % (11.6-15.6); WHITE BLOOD COUNT 25.2 K/mm3 (4.0-10.0)
[2020-11-22 02:11] LABS: ARTERIAL BLD GAS O2 SATURATION 96.3 mmHg (95-98); ARTERIAL BLOOD GAS PO2 99.4 mmHg (80-100); ARTERIAL BLOOD GAS pH 7.253 (7.350-7.450)
[2020-11-22 02:18] LABS: CHLORIDE 98 mmol/L (98-107); SODIUM 135 mmol/L (136-145)
[2020-11-22 02:20] LABS: ALBUMIN 3.6 g/dl (3.4-5.0); ANION GAP 8 MMOL/L (8-16); BLOOD UREA NITROGEN 16.8 mg/dL (7-18); CALCIUM 8.8 mg/dL (8.5-10.1); CO2 29 mmol/L (21-32); GLUCOSE,RANDOM 109 mg/dL (74-106)
[2020-11-22 02:23] LABS: INR 1.07 (0.83-1.09); PROTHROMBIN TIME (PATIENT) 13.1 SEC (9.7-13.0); SGOT/AST 12 U/L (15-37); SGPT/ALT 9 U/L (13-61)
[2020-11-22 02:25] LABS: ACTIVATED PTT 31.3 SECONDS (25.2-36.5); BILIRUBIN,TOTAL 0.5 mg/dL (0.2-1); TOT PROT 7.3 g/dl (6.4-8.2)
[2020-11-22 02:26] LABS: ALK PHOS 61 U/L (45-117)
[2020-11-22 02:28] LABS: ALLENS TEST POSITIVE
[2020-11-22 02:29] LABS: PT'S TEMP 98.6
[2020-11-22 02:39] LABS: CREATININE 0.6 mg/dL (0.55-1.3)
[2020-11-22] MEDS ORDERED: LIDOCAINE HCL 1%, 10 MG/ML (20ML VIAL) ONE (03:59)
[2020-11-22] MEDS ORDERED: LIDOCAINE HCL 2% (20ML MULTI-DOSE VIAL) ONE (04:24)
[2020-11-22] MEDS ORDERED: MORPHINE SULFATE 2 MG/ML VIAL ONE (04:36)
[2020-11-22] MEDS ORDERED: morphine CARPU-JECT 2 MG/1 ML DISP.SYRIN IVPUSH ONE ×2 (04:56→04:57)
[2020-11-22 04:58] LABS: ANISOCYTOSIS 1+; HELMET CELLS 1+; MACROCYTOSIS 1+; PLATELET ESTIMATE NORMAL; TARGET CELLS 1+
[2020-11-22] MEDS ORDERED: morphine SULFATE 4 MG/ML VIAL ONE (04:58)
[2020-11-22] MEDS ORDERED: PIPERACILLIN/TAZOB 3.375 GM 3.375 GM in DEXTROSE 5%-WATER - 50 ML IVPB ONE (05:08)
[2020-11-22] MEDS ORDERED: VANCOMYCIN 1 GM PREMIX - 1 GM/200 ML BAG IVPB ONE (05:08)
[2020-11-22] MEDS ORDERED: VANCOMYCIN 1 GRAM (PRE-DOCKED) 1,000 MG/250 ML BAG IVPB ONE (06:01)
[2020-11-22] MEDS ORDERED: PIPERACILLIN/TAZOB 3.375 GM 3.375 GM/50 ML BAG IVPB ONE (06:01)
[2020-11-22 06:31] LABS: ARTERIAL BLD GAS O2 SATURATION 98.8 mmHg (95-98); ARTERIAL BLOOD GAS BASE EXCESS -0.6 mmol/L (-2-2); ARTERIAL BLOOD GAS PO2 158.3 mmHg (80-100); ARTERIAL BLOOD GAS pH 7.276 (7.350-7.450)
[2020-11-22 06:41] LABS: ALLENS TEST POSITIVE
[2020-11-22 07:49] LABS: LIPASE 65 U/L (73-393)
[2020-11-22 08:28] LABS: URINE APPEARANCE Clear; URINE BILIRUBIN Negative (NEGATIVE); URINE COLOR Yellow; URINE GLUCOSE (UA) Negative (NEGATIVE); URINE KETONE Trace (NEGATIVE); URINE LEUK ESTERASE Negative (NEGATIVE); URINE NITRITE Negative (NEGATIVE); URINE PROTEIN 2+ (NEGATIVE); URINE UROBILINOGEN 0.2 mg/dL (0.2-1.0)
[2020-11-22] MEDS ORDERED: METOCLOPRAMIDE HCL INJECTION 10 MG/2 ML VIAL IVPUSH PRN (09:07)
[2020-11-22 10:08] LABS: IRON SERUM 14 ug/dL (50-175); TOTAL IRON BINDING CAPACITY 301 ug/dL (250-450)
[2020-11-22 12:53] LABS: RETICULOCYTES 0.68 % (0.5-1.5)
[2020-11-22] MEDS ORDERED: amLODIPine BESYLATE 5 MG TABLET (FP) PO SCH (14:30)
[2020-11-22] MEDS: ACETAMINOPHEN 325 MG TABLET (FP) PO PRN ×2 (14:51→20:30)
[2020-11-22] MEDS ORDERED: AZITHROMYCIN 250 MG TABLET PO ONE (16:08)
[2020-11-22] MEDS ORDERED: cefTRIAXone SODIUM 1 GM VIAL ONE (16:35)
[2020-11-22] MEDS ORDERED: DEXTROSE 5%-WATER - 50 ML IVPB ONE (16:36)
[2020-11-22] MEDS: CEFTRIAXONE 1 GM in DEXTROSE 5%-WATER - 50 ML IVPB SCH (16:48)
[2020-11-22] MEDS ORDERED: amLODIPine BESYLATE 5 MG TABLET (FP) PO ONE (17:39)
[2020-11-22] MEDS ORDERED: PIPERACILLIN/TAZOB 3.375 GM 3.375 GM in DEXTROSE 5%-WATER - 50 ML IVPB SCH (18:00)
[2020-11-22] MEDS: PANTOPRAZOLE 40 MG TABLET PO SCH ×2 (18:14→18:19)
[2020-11-22] MEDS: FOLIC ACID 1 MG TABLET (FP) PO SCH (18:14)
[2020-11-22] MEDS: predniSONE 5 MG TABLET (UD) PO SCH (18:14)
[2020-11-23] MEDS ORDERED: VANCOMYCIN 1 GM in D5W (PRE-DOCKED) 1,000 MG/250 ML IVPB SCH (06:00)
[2020-11-23] MEDS: PANTOPRAZOLE 40 MG TABLET PO SCH (08:02)
[2020-11-23 08:12] LABS: BASO % 0.2 % (0-2.0); EOS % 0.1 % (0-4.5); HEMATOCRIT 32.3 % (32.4-45.2); HEMOGLOBIN 9.9 GM/dL (10.7-15.3); LYMPH % 1.8 % (8-40); MCH 24.9 pg (25.7-33.7); MCHC 30.8 g/dl (32.0-36.0); MEAN CELL VOLUME 80.7 fl (80-96); MEAN PLT VOLUME 9.4 fl (7.5-11.1); MONO % 5.1 % (3.8-10.2); NEUT % 92.8 % (42.8-82.8); PLATELET COUNT 208 10^3/uL (134-434); RDW 16.2 % (11.6-15.6); WHITE BLOOD COUNT 20.9 K/mm3 (4.0-10.0)
[2020-11-23 08:41] LABS: ALBUMIN 3.1 g/dl (3.4-5.0); BLOOD UREA NITROGEN 17.4 mg/dL (7-18); CALCIUM 9.2 mg/dL (8.5-10.1)
[2020-11-23 08:44] LABS: CREATININE 0.6 mg/dL (0.55-1.3)
[2020-11-23 08:45] LABS: BILIRUBIN,TOTAL 0.2 mg/dL (0.2-1); TOT PROT 6.7 g/dl (6.4-8.2)
[2020-11-23] MEDS ORDERED: DEXTROSE 5%-WATER - 50 ML IVPB ONE (09:12)
[2020-11-23] MEDS ORDERED: cefTRIAXone SODIUM 1 GM VIAL ONE (09:12)
[2020-11-23] MEDS: predniSONE 5 MG TABLET (UD) PO SCH (09:16)
[2020-11-23] MEDS: CEFTRIAXONE 1 GM in DEXTROSE 5%-WATER - 50 ML IVPB SCH (09:16)
[2020-11-23] MEDS: FOLIC ACID 1 MG TABLET (FP) PO SCH (09:16)
[2020-11-23] MEDS: amLODIPine BESYLATE 5 MG TABLET (FP) PO SCH (09:16)
[2020-11-23 13:13] LABS: ANISOCYTOSIS 0; HELMET CELLS 0; HOWELL-JOLLY BODIES 0; MACROCYTOSIS 0; OVALOCYTE 0; PLATELET ESTIMATE NORMAL; ROULEAU 0; SICKELED CELLS 0; TARGET CELLS 0; TEAR DROP CELLS 0; TOXIC GRANULATION 0
[2020-11-23] MEDS: FLUTICASONE/UMECLIDIN/VILANTER (TRELEGY ELLIPTA 100-62.5-25) INAHLER IH SCH (16:01)
[2020-11-23] MEDS: ACETAMINOPHEN 325 MG TABLET (FP) PO PRN (22:20)
[2020-11-24] MEDS: oxyCODONE HCL 5 MG TABLET PO PRN ×3 (03:38→21:55)
[2020-11-24] MEDS: PANTOPRAZOLE 40 MG TABLET PO SCH (05:24)
[2020-11-24 08:22] LABS: BASO % 0.4 % (0-2.0); EOS % 1.4 % (0-4.5); HEMATOCRIT 29.5 % (32.4-45.2); HEMOGLOBIN 9.3 GM/dL (10.7-15.3); LYMPH % 2.9 % (8-40); MCH 25.4 pg (25.7-33.7); MCHC 31.4 g/dl (32.0-36.0); MEAN CELL VOLUME 80.7 fl (80-96); MEAN PLT VOLUME 8.9 fl (7.5-11.1); MONO % 6.4 % (3.8-10.2); NEUT % 88.9 % (42.8-82.8); PLATELET COUNT 193 10^3/uL (134-434); RBC 3.65 M/mm3 (3.60-5.2); RDW 16.3 % (11.6-15.6); WHITE BLOOD COUNT 15.2 K/mm3 (4.0-10.0)
[2020-11-24 08:49] LABS: CALCIUM 8.9 mg/dL (8.5-10.1)
[2020-11-24 08:50] LABS: ALBUMIN 2.9 g/dl (3.4-5.0); BLOOD UREA NITROGEN 14.6 mg/dL (7-18); MAGNESIUM 2.2 mg/dL (1.8-2.4)
[2020-11-24 08:53] LABS: CREATININE 0.6 mg/dL (0.55-1.3); PHOSPHOROUS 2.8 mg/dL (2.5-4.9)
[2020-11-24 08:55] LABS: BILIRUBIN,TOTAL 0.3 mg/dL (0.2-1); TOT PROT 6.3 g/dl (6.4-8.2)
[2020-11-24] MEDS ORDERED: DEXTROSE 5%-WATER - 50 ML IVPB ONE (09:29)
[2020-11-24] MEDS ORDERED: cefTRIAXone SODIUM 1 GM VIAL ONE (09:29)
[2020-11-24] MEDS: FOLIC ACID 1 MG TABLET (FP) PO SCH (09:38)
[2020-11-24] MEDS: amLODIPine BESYLATE 5 MG TABLET (FP) PO SCH (09:38)
[2020-11-24] MEDS: CEFTRIAXONE 1 GM in DEXTROSE 5%-WATER - 50 ML IVPB SCH (09:38)
[2020-11-24] MEDS: ENOXAPARIN NA (PORCINE) 40 MG/0.4 ML DISP.SYRIN SQ SCH (09:38)
[2020-11-24] MEDS: predniSONE 5 MG TABLET (UD) PO SCH (09:38)
[2020-11-24] MEDS: FLUTICASONE/UMECLIDIN/VILANTER (TRELEGY ELLIPTA 100-62.5-25) INAHLER IH SCH (09:39)
[2020-11-24] MEDS ORDERED: TIOTROPIUM BROMIDE 2.5 MCG (SPIRIVA) RESPIMAT INHALER IH SCH (10:00)
[2020-11-25] MEDS: PANTOPRAZOLE 40 MG TABLET PO SCH (05:49)
[2020-11-25] MEDS: oxyCODONE HCL 5 MG TABLET PO PRN (05:49)
[2020-11-25] MEDS: FLUTICASONE/UMECLIDIN/VILANTER (TRELEGY ELLIPTA 100-62.5-25) INAHLER IH SCH (06:24)
[2020-11-25 08:02] LABS: BASO % 0.3 % (0-2.0); EOS % 2.7 % (0-4.5); HEMATOCRIT 32.4 % (32.4-45.2); LYMPH % 3.1 % (8-40); MCHC 30.9 g/dl (32.0-36.0); MEAN PLT VOLUME 9.2 fl (7.5-11.1); MONO % 8.4 % (3.8-10.2); NEUT % 85.5 % (42.8-82.8); PLATELET COUNT 230 10^3/uL (134-434); RDW 15.8 % (11.6-15.6); WHITE BLOOD COUNT 10.1 K/mm3 (4.0-10.0)
[2020-11-25 08:29] LABS: BLOOD UREA NITROGEN 14.7 mg/dL (7-18)
[2020-11-25 08:30] LABS: MAGNESIUM 2.1 mg/dL (1.8-2.4)
[2020-11-25 08:33] LABS: CREATININE 0.6 mg/dL (0.55-1.3); PHOSPHOROUS 3.1 mg/dL (2.5-4.9)
[2020-11-25 08:34] LABS: BILIRUBIN,TOTAL 0.5 mg/dL (0.2-1); TOT PROT 6.5 g/dl (6.4-8.2)
[2020-11-25] MEDS ORDERED: DEXTROSE 5%-WATER - 50 ML IVPB ONE (09:20)
[2020-11-25] MEDS ORDERED: cefTRIAXone SODIUM 1 GM VIAL ONE (09:20)
[2020-11-25] MEDS: amLODIPine BESYLATE 5 MG TABLET (FP) PO SCH (09:26)
[2020-11-25] MEDS: FOLIC ACID 1 MG TABLET (FP) PO SCH (09:26)
[2020-11-25] MEDS: CEFTRIAXONE 1 GM in DEXTROSE 5%-WATER - 50 ML IVPB SCH (09:26)
[2020-11-25] MEDS: predniSONE 5 MG TABLET (UD) PO SCH (09:26)
[2020-11-25] MEDS: ENOXAPARIN NA (PORCINE) 40 MG/0.4 ML DISP.SYRIN SQ SCH ×2 (09:29→09:44)
[2020-11-25] MEDS: ACETAMINOPHEN 325 MG TABLET (FP) PO PRN (21:46)
[2020-11-26] MEDS ORDERED: LORazepam 2 MG/ML SDV VIAL IVPUSH ONE (01:03)
[2020-11-26] MEDS: PANTOPRAZOLE 40 MG TABLET PO SCH (06:41)
[2020-11-26] MEDS: FLUTICASONE/UMECLIDIN/VILANTER (TRELEGY ELLIPTA 100-62.5-25) INAHLER IH SCH (06:45)
[2020-11-26] MEDS ORDERED: cefTRIAXone SODIUM 1 GM VIAL ONE (08:07)
[2020-11-26] MEDS ORDERED: DEXTROSE 5%-WATER - 50 ML IVPB ONE (08:07)
[2020-11-26 08:48] LABS: BASO % 0.4 % (0-2.0); EOS % 2.6 % (0-4.5); HEMATOCRIT 36.4 % (32.4-45.2); HEMOGLOBIN 11.4 GM/dL (10.7-15.3); LYMPH % 3.1 % (8-40); MCH 25.2 pg (25.7-33.7); MCHC 31.4 g/dl (32.0-36.0); MEAN CELL VOLUME 80.1 fl (80-96); MEAN PLT VOLUME 8.4 fl (7.5-11.1); MONO % 8.2 % (3.8-10.2); NEUT % 85.7 % (42.8-82.8); PLATELET COUNT 279 10^3/uL (134-434); RBC 4.54 M/mm3 (3.60-5.2); RDW 16.3 % (11.6-15.6); WHITE BLOOD COUNT 9.4 K/mm3 (4.0-10.0)
[2020-11-26] MEDS: predniSONE 5 MG TABLET (UD) PO SCH ×2 (08:52→11:02)
[2020-11-26] MEDS: ENOXAPARIN NA (PORCINE) 40 MG/0.4 ML DISP.SYRIN SQ SCH ×2 (08:53→11:03)
[2020-11-26] MEDS: amLODIPine BESYLATE 5 MG TABLET (FP) PO SCH ×2 (08:53→11:03)
[2020-11-26] MEDS: CEFTRIAXONE 1 GM in DEXTROSE 5%-WATER - 50 ML IVPB SCH ×2 (08:53→11:03)
[2020-11-26 09:10] LABS: ALBUMIN 3.2 g/dl (3.4-5.0); BLOOD UREA NITROGEN 14.9 mg/dL (7-18); MAGNESIUM 2.1 mg/dL (1.8-2.4)
[2020-11-26 09:13] LABS: CREATININE 0.6 mg/dL (0.55-1.3)
[2020-11-26 09:15] LABS: BILIRUBIN,TOTAL 0.5 mg/dL (0.2-1)
[2020-11-26] MEDS: FOLIC ACID 1 MG TABLET (FP) PO SCH (11:03)
[2020-11-26] MEDS: LORazepam 0.5 MG TABLET PO PRN (17:30)
[2020-11-27] MEDS: LORazepam 0.5 MG TABLET PO PRN ×3 (02:18→21:11)
[2020-11-27] MEDS ORDERED: MELATONIN 5 MG TABLETS PO ONE ×2 (05:04→20:49)
[2020-11-27] MEDS: PANTOPRAZOLE 40 MG TABLET PO SCH (05:15)
[2020-11-27] MEDS: FLUTICASONE/UMECLIDIN/VILANTER (TRELEGY ELLIPTA 100-62.5-25) INAHLER IH SCH ×2 (05:20→09:20)
[2020-11-27 08:09] LABS: BASO % 0.5 % (0-2.0); EOS % 3.2 % (0-4.5); HEMATOCRIT 32.5 % (32.4-45.2); HEMOGLOBIN 10.1 GM/dL (10.7-15.3); LYMPH % 4.5 % (8-40); MCH 24.8 pg (25.7-33.7); MCHC 31.1 g/dl (32.0-36.0); MEAN CELL VOLUME 79.7 fl (80-96); MEAN PLT VOLUME 8.8 fl (7.5-11.1); MONO % 10.6 % (3.8-10.2); NEUT % 81.2 % (42.8-82.8); PLATELET COUNT 248 10^3/uL (134-434); RBC 4.07 M/mm3 (3.60-5.2); RDW 16.1 % (11.6-15.6); WHITE BLOOD COUNT 10.3 K/mm3 (4.0-10.0)
[2020-11-27 08:42] LABS: ALBUMIN 2.9 g/dl (3.4-5.0); CALCIUM 9.1 mg/dL (8.5-10.1)
[2020-11-27 08:43] LABS: BLOOD UREA NITROGEN 20.2 mg/dL (7-18); MAGNESIUM 2.2 mg/dL (1.8-2.4)
[2020-11-27 08:46] LABS: CREATININE 0.6 mg/dL (0.55-1.3); PHOSPHOROUS 4.1 mg/dL (2.5-4.9)
[2020-11-27 08:47] LABS: BILIRUBIN,TOTAL 0.2 mg/dL (0.2-1); TOT PROT 6.1 g/dl (6.4-8.2)
[2020-11-27] MEDS ORDERED: DEXTROSE 5%-WATER - 50 ML IVPB ONE (09:11)
[2020-11-27] MEDS ORDERED: cefTRIAXone SODIUM 1 GM VIAL ONE (09:11)
[2020-11-27] MEDS: CEFTRIAXONE 1 GM in DEXTROSE 5%-WATER - 50 ML IVPB SCH (09:21)
[2020-11-27] MEDS: amLODIPine BESYLATE 5 MG TABLET (FP) PO SCH (09:21)
[2020-11-27] MEDS: FOLIC ACID 1 MG TABLET (FP) PO SCH (09:21)
[2020-11-27] MEDS: ENOXAPARIN NA (PORCINE) 40 MG/0.4 ML DISP.SYRIN SQ SCH (09:21)
[2020-11-27] MEDS: predniSONE 5 MG TABLET (UD) PO SCH (09:21)
[2020-11-27] MEDS: ACETAMINOPHEN 325 MG TABLET (FP) PO PRN (22:36)
[2020-11-28] MEDS: PANTOPRAZOLE 40 MG TABLET PO SCH (05:49)
[2020-11-28] MEDS: FLUTICASONE/UMECLIDIN/VILANTER (TRELEGY ELLIPTA 100-62.5-25) INAHLER IH SCH (05:50)
[2020-11-28 07:51] LABS: BASO % 0.4 % (0-2.0); EOS % 3.6 % (0-4.5); HEMATOCRIT 30.6 % (32.4-45.2); HEMOGLOBIN 9.9 GM/dL (10.7-15.3); MCH 25.3 pg (25.7-33.7); MCHC 32.3 g/dl (32.0-36.0); MEAN CELL VOLUME 78.5 fl (80-96); MEAN PLT VOLUME 8.3 fl (7.5-11.1); MONO % 10.2 % (3.8-10.2); NEUT % 80.8 % (42.8-82.8); PLATELET COUNT 257 10^3/uL (134-434); RDW 15.6 % (11.6-15.6); WHITE BLOOD COUNT 10.2 K/mm3 (4.0-10.0)
[2020-11-28 08:16] LABS: BLOOD UREA NITROGEN 15.3 mg/dL (7-18); CALCIUM 8.7 mg/dL (8.5-10.1)
[2020-11-28 08:17] LABS: ALBUMIN 2.8 g/dl (3.4-5.0)
[2020-11-28 08:20] LABS: BILIRUBIN,TOTAL 0.4 mg/dL (0.2-1); CREATININE 0.6 mg/dL (0.55-1.3); PHOSPHOROUS 3.9 mg/dL (2.5-4.9)
[2020-11-28 08:21] LABS: TOT PROT 6.1 g/dl (6.4-8.2)
[2020-11-28] MEDS ORDERED: cefTRIAXone SODIUM 1 GM VIAL ONE (09:00)
[2020-11-28] MEDS ORDERED: DEXTROSE 5%-WATER - 50 ML IVPB ONE (09:00)
[2020-11-28] MEDS: ENOXAPARIN NA (PORCINE) 40 MG/0.4 ML DISP.SYRIN SQ SCH (09:33)
[2020-11-28] MEDS: CEFTRIAXONE 1 GM in DEXTROSE 5%-WATER - 50 ML IVPB SCH (09:33)
[2020-11-28] MEDS: amLODIPine BESYLATE 5 MG TABLET (FP) PO SCH (09:34)
[2020-11-28] MEDS: FOLIC ACID 1 MG TABLET (FP) PO SCH (09:34)
[2020-11-28] MEDS: predniSONE 5 MG TABLET (UD) PO SCH (09:34)
[2020-11-28] MEDS: LORazepam 0.5 MG TABLET PO PRN ×2 (09:34→22:19)
[2020-11-28] MEDS ORDERED: DOCUSATE SODIUM 100 MG CAPSULE (FP) PO PRN (11:49)
[2020-11-28 12:23] VITALS: BMI 16.9
[2020-11-28] MEDS ORDERED: MELATONIN 5 MG TABLETS PO ONE (20:51)
[2020-11-29] MEDS: ACETAMINOPHEN 325 MG TABLET (FP) PO PRN ×2 (01:49→21:41)
[2020-11-29] MEDS: PANTOPRAZOLE 40 MG TABLET PO SCH (05:56)
[2020-11-29] MEDS: FLUTICASONE/UMECLIDIN/VILANTER (TRELEGY ELLIPTA 100-62.5-25) INAHLER IH SCH (05:58)
[2020-11-29 07:44] LABS: BASO % 0.2 % (0-2.0); EOS % 1.8 % (0-4.5); HEMATOCRIT 30.3 % (32.4-45.2); HEMOGLOBIN 9.7 GM/dL (10.7-15.3); LYMPH % 4.1 % (8-40); MCH 25.2 pg (25.7-33.7); MEAN CELL VOLUME 78.7 fl (80-96); MEAN PLT VOLUME 8.2 fl (7.5-11.1); MONO % 8.1 % (3.8-10.2); NEUT % 85.8 % (42.8-82.8); PLATELET COUNT 279 10^3/uL (134-434); RBC 3.85 M/mm3 (3.60-5.2); RDW 16.1 % (11.6-15.6); WHITE BLOOD COUNT 14.8 K/mm3 (4.0-10.0)
[2020-11-29 08:05] LABS: CALCIUM 8.9 mg/dL (8.5-10.1)
[2020-11-29 08:06] LABS: ALBUMIN 2.9 g/dl (3.4-5.0); BLOOD UREA NITROGEN 16.7 mg/dL (7-18); CREATININE 0.6 mg/dL (0.55-1.3); MAGNESIUM 2.1 mg/dL (1.8-2.4); PHOSPHOROUS 3.9 mg/dL (2.5-4.9)
[2020-11-29 08:08] LABS: BILIRUBIN,TOTAL 0.4 mg/dL (0.2-1); TOT PROT 6.3 g/dl (6.4-8.2)
[2020-11-29] MEDS: ENOXAPARIN NA (PORCINE) 40 MG/0.4 ML DISP.SYRIN SQ SCH (09:52)
[2020-11-29] MEDS: FOLIC ACID 1 MG TABLET (FP) PO SCH (09:52)
[2020-11-29] MEDS: predniSONE 5 MG TABLET (UD) PO SCH (09:52)
[2020-11-29] MEDS: amLODIPine BESYLATE 5 MG TABLET (FP) PO SCH (09:52)
[2020-11-29] MEDS: AMINO ACIDS/PROTEIN HYDROLYS 30 ML LIQUID.PKT PO SCH (09:52)
[2020-11-29] MEDS: LORazepam 0.5 MG TABLET PO PRN ×2 (11:46→21:42)
[2020-11-30] MEDS: FLUTICASONE/UMECLIDIN/VILANTER (TRELEGY ELLIPTA 100-62.5-25) INAHLER IH SCH (06:19)
[2020-11-30] MEDS: PANTOPRAZOLE 40 MG TABLET PO SCH (06:19)
[2020-11-30 08:07] LABS: BASO % 0.6 % (0-2.0); EOS % 2.8 % (0-4.5); HEMATOCRIT 30.1 % (32.4-45.2); HEMOGLOBIN 9.4 GM/dL (10.7-15.3); LYMPH % 7.1 % (8-40); MCH 25.1 pg (25.7-33.7); MCHC 31.4 g/dl (32.0-36.0); MEAN CELL VOLUME 80.1 fl (80-96); MEAN PLT VOLUME 8.9 fl (7.5-11.1); MONO % 8.5 % (3.8-10.2); PLATELET COUNT 338 10^3/uL (134-434); RBC 3.75 M/mm3 (3.60-5.2); RDW 16.1 % (11.6-15.6); WHITE BLOOD COUNT 10.9 K/mm3 (4.0-10.0)
[2020-11-30 08:25] LABS: MAGNESIUM 2.1 mg/dL (1.8-2.4)
[2020-11-30 08:27] LABS: CREATININE 0.5 mg/dL (0.55-1.3)
[2020-11-30 08:28] LABS: PHOSPHOROUS 3.4 mg/dL (2.5-4.9)
[2020-11-30 08:29] LABS: BILIRUBIN,TOTAL 0.4 mg/dL (0.2-1); TOT PROT 6.6 g/dl (6.4-8.2)
[2020-11-30] MEDS: AMINO ACIDS/PROTEIN HYDROLYS 30 ML LIQUID.PKT PO SCH (09:49)
[2020-11-30] MEDS: predniSONE 5 MG TABLET (UD) PO SCH (09:49)
[2020-11-30] MEDS: ENOXAPARIN NA (PORCINE) 40 MG/0.4 ML DISP.SYRIN SQ SCH (09:49)
[2020-11-30] MEDS: amLODIPine BESYLATE 5 MG TABLET (FP) PO SCH (09:49)
[2020-11-30] MEDS: FOLIC ACID 1 MG TABLET (FP) PO SCH (09:49)
[2020-11-30] MEDS: ACETAMINOPHEN 325 MG TABLET (FP) PO PRN ×2 (14:19→21:30)
[2020-11-30] MEDS: LORazepam 0.5 MG TABLET PO PRN (21:30)
[2020-12-01] MEDS: PANTOPRAZOLE 40 MG TABLET PO SCH (06:40)
[2020-12-01] MEDS: FLUTICASONE/UMECLIDIN/VILANTER (TRELEGY ELLIPTA 100-62.5-25) INAHLER IH SCH (06:43)
[2020-12-01 07:36] LABS: BASO % 0.6 % (0-2.0); EOS % 2.5 % (0-4.5); HEMATOCRIT 30.2 % (32.4-45.2); HEMOGLOBIN 9.5 GM/dL (10.7-15.3); LYMPH % 5.8 % (8-40); MCH 25.3 pg (25.7-33.7); MCHC 31.4 g/dl (32.0-36.0); MEAN CELL VOLUME 80.7 fl (80-96); MEAN PLT VOLUME 8.6 fl (7.5-11.1); MONO % 6.4 % (3.8-10.2); NEUT % 84.7 % (42.8-82.8); PLATELET COUNT 336 10^3/uL (134-434); RBC 3.75 M/mm3 (3.60-5.2); RDW 16.1 % (11.6-15.6); WHITE BLOOD COUNT 10.4 K/mm3 (4.0-10.0)
[2020-12-01 07:51] LABS: CALCIUM 8.9 mg/dL (8.5-10.1)
[2020-12-01 07:52] LABS: BLOOD UREA NITROGEN 12.8 mg/dL (7-18); MAGNESIUM 2.1 mg/dL (1.8-2.4)
[2020-12-01 07:55] LABS: CREATININE 0.5 mg/dL (0.55-1.3); PHOSPHOROUS 3.1 mg/dL (2.5-4.9)
[2020-12-01 07:56] LABS: BILIRUBIN,TOTAL 0.3 mg/dL (0.2-1); TOT PROT 6.6 g/dl (6.4-8.2)
[2020-12-01] MEDS: ENOXAPARIN NA (PORCINE) 40 MG/0.4 ML DISP.SYRIN SQ SCH (09:12)
[2020-12-01] MEDS: AMINO ACIDS/PROTEIN HYDROLYS 30 ML LIQUID.PKT PO SCH (09:12)
[2020-12-01] MEDS: FOLIC ACID 1 MG TABLET (FP) PO SCH (09:12)
[2020-12-01] MEDS: amLODIPine BESYLATE 5 MG TABLET (FP) PO SCH (09:12)
[2020-12-01] MEDS: predniSONE 5 MG TABLET (UD) PO SCH (09:12)
[2020-12-01 12:35] VITALS: BP 144/71; PULSE 103; TEMP 98.5
== END 2020-12-01 13:02 | DRG 199 ==
LOC: JER 22:33 → JERBED 11-22 05:25 → UNDOADMIN 11-22 05:25 → J4W 11-22 11:48
PROC: 0W9B30Z Drainage of Left Pleural Cavity with Drainage Device, Percutaneous Approach (ICD-10-PCS; principal; 2020-11-24)
DX: J93.9 Pneumothorax, unspecified (principal); J96.21 Acute and chronic respiratory failure with hypoxia; J13 Pneumonia due to Streptococcus pneumoniae; R64 Cachexia; C34.90 Malignant neoplasm of unspecified part of unspecified bronchus or lung; C16.9 Malignant neoplasm of stomach, unspecified; Z68.1 Body mass index [BMI] 19.9 or less, adult; J98.11 Atelectasis; J44.9 Chronic obstructive pulmonary disease, unspecified; I10 Essential (primary) hypertension; E78.5 Hyperlipidemia, unspecified; D72.829 Elevated white blood cell count, unspecified; R00.0 Tachycardia, unspecified
CPT/HCPCS: 36415; 36600; 71045-TC-FY; 71250-TC; 80053; 81003; 82728; 82803; 83010; 83540; 83550; 83605; 83690; 83735; 84100; 84484; 85025; 85045; 85610; 85730; 86850; 86900; 86901; 87040; 87077; 87086; 87899; 93005; 93010; 94010; 97116-GP; 97163-GP; 99291; 99292; C9803; J0131; U0003; U0005

== ENCOUNTER 2021-05-16 14:28 | Inpatient (IN) | payer OTHER ==
[2021-05-16] MEDS ORDERED: SODIUM CHLORIDE 0.9% 500 ML INFUS.BAG IV ONE (15:29)
[2021-05-16] MEDS ORDERED: CEFTRIAXONE 1 GM in DEXTROSE 5%-WATER - 100 ML IVPB ONE (15:53)
[2021-05-16] MEDS ORDERED: AZITHROMYCIN IVPB 500 MG in DEXTROSE 5%-WATER - 250 ML IVPB ONE (15:54)
[2021-05-16] MEDS ORDERED: CEFTRIAXONE 1 GM/50 ML BAG ONE (16:02)
[2021-05-16] MEDS ORDERED: AZITHROMYCIN IVPB 500 MG/250 ML BAG IVPB ONE (18:13)
[2021-05-16 18:27] LABS: HEMATOCRIT 28.7 % (32.4-45.2); MCH 23.9 pg (25.7-33.7); MCHC 31.5 g/dl (32.0-36.0); MEAN CELL VOLUME 75.7 fl (80-96); MEAN PLT VOLUME 7.9 fl (7.5-11.1); PLATELET COUNT 341 10^3/uL (134-434); RBC 3.79 M/mm3 (3.60-5.2); RDW 18.6 % (11.6-15.6); WHITE BLOOD COUNT 15.7 K/mm3 (4.0-10.0)
[2021-05-16 18:34] LABS: CHLORIDE 94 mmol/L (98-107); SODIUM 136 mmol/L (136-145)
[2021-05-16 18:38] LABS: ALBUMIN 2.9 g/dl (3.4-5.0); CALCIUM 9.5 mg/dL (8.5-10.1)
[2021-05-16 18:40] LABS: ANION GAP 10 MMOL/L (8-16); BLOOD UREA NITROGEN 32.5 mg/dL (7-18); CO2 33 mmol/L (21-32); GLUCOSE,RANDOM 140 mg/dL (74-106)
[2021-05-16 18:42] LABS: CREATININE 0.5 mg/dL (0.55-1.3); SGOT/AST 39 U/L (15-37); SGPT/ALT 18 U/L (13-61)
[2021-05-16 18:45] LABS: ALK PHOS 152 U/L (45-117); BILIRUBIN,TOTAL 0.4 mg/dL (0.2-1); TOT PROT 6.9 g/dl (6.4-8.2)
[2021-05-16 19:55] LABS: ANISOCYTOSIS 1+; MACROCYTOSIS 1+; PLATELET ESTIMATE NORMAL
[2021-05-16] MEDS ORDERED: SODIUM CHLORIDE 1,000 ML IV SCH (22:15)
[2021-05-16] MEDS ORDERED: PIPERACILLIN/TAZOB 3.375 GM 3.375 GM in DEXTROSE 5%-WATER - 50 ML IVPB SCH (22:30)
[2021-05-16] MEDS ORDERED: ENOXAPARIN NA (PORCINE) 30 MG/0.3 ML DISP.SYRIN SQ ONE (22:57)
[2021-05-16] MEDS: ENOXAPARIN NA (PORCINE) 30 MG/0.3 ML DISP.SYRIN SQ SCH (23:13)
[2021-05-16 23:43] LABS: EPI CELLS 15 /uL (0-25.1); HYALINE CASTS 3 /uL (0-3.1); PH,URINE 5.5 (5.0-8.0); URINE APPEARANCE CLEAR; URINE BACTERIA 31 /uL (0-1359); URINE BILIRUBIN NEGATIVE (NEGATIVE); URINE COLOR YELLOW; URINE GLUCOSE (UA) NEGATIVE (NEGATIVE); URINE KETONE NEGATIVE (NEGATIVE); URINE LEUK ESTERASE NEGATIVE (NEGATIVE); URINE NITRITE NEGATIVE (NEGATIVE); URINE PROTEIN 2+ (NEGATIVE); URINE RBC 116 /uL (0-23.9); URINE WBC 8 /uL (0-25.8)
[2021-05-17] MEDS ORDERED: PIPERACILLIN/TAZOBACTAM 3.375 GM VIAL IVPB ONE ×3 (01:59→18:08)
[2021-05-17] MEDS ORDERED: DEXTROSE 5%-WATER - 50 ML IVPB ONE ×3 (01:59→18:08)
[2021-05-17] MEDS: PIPERACILLIN/TAZOB 3.375 GM 3.375 GM in DEXTROSE 5%-WATER - 50 ML IVPB SCH ×4 (02:44→18:10)
[2021-05-17] MEDS ORDERED: DOCUSATE SODIUM 100 MG CAPSULE (FP) PO PRN (03:45)
[2021-05-17] MEDS ORDERED: ALBUTEROL SO4 HFA INHALER IH PRN (03:45)
[2021-05-17] MEDS ORDERED: oxyCODONE HCL 5 MG TABLET PO SCH ×2 (04:15→14:00)
[2021-05-17] MEDS ORDERED: ACETAMINOPHEN 325 MG TABLET (FP) PO SCH (04:15)
[2021-05-17] MEDS ORDERED: oxyCODONE HCL 10 MG SUSTAINED ACTING TABLET ONE (04:44)
[2021-05-17] MEDS ORDERED: BUDESONIDE/FORMETEROL FUMARATE 80/4.5 mcg INHALER IH SCH (10:00)
[2021-05-17] MEDS ORDERED: FERROUS SO4 325 MG TABLET (FP) PO SCH (10:00)
[2021-05-17] MEDS ORDERED: predniSONE 5 MG TABLET (UD) PO SCH (10:00)
[2021-05-17] MEDS ORDERED: TIOTROPIUM BROMIDE 2.5 MCG (SPIRIVA) RESPIMAT INHALER IH SCH (10:00)
[2021-05-17] MEDS ORDERED: POLYETHYLENE GLYCOL (HEALTHYLAX) 3350 17 GM PACKET PO SCH (10:00)
[2021-05-17 10:38] LABS: BASO % 0.1 % (0-2.0); HEMATOCRIT 27.6 % (32.4-45.2); HEMOGLOBIN 8.6 GM/dL (10.7-15.3); MCH 23.7 pg (25.7-33.7); MCHC 31.1 g/dl (32.0-36.0); MEAN CELL VOLUME 76.3 fl (80-96); MEAN PLT VOLUME 8.3 fl (7.5-11.1); MONO % 9.4 % (3.8-10.2); NEUT % 88.5 % (42.8-82.8); PLATELET COUNT 317 10^3/uL (134-434); RBC 3.62 M/mm3 (3.60-5.2); RDW 18.4 % (11.6-15.6); WHITE BLOOD COUNT 12.1 K/mm3 (4.0-10.0)
[2021-05-17] MEDS ORDERED: predniSONE 20 MG TABLET (UD) PO SCH (11:00)
[2021-05-17 11:03] LABS: ALBUMIN 2.7 g/dl (3.4-5.0); BLOOD UREA NITROGEN 23.8 mg/dL (7-18); MAGNESIUM 2.1 mg/dL (1.8-2.4)
[2021-05-17 11:06] LABS: CREATININE 0.4 mg/dL (0.55-1.3)
[2021-05-17 11:08] LABS: TOT PROT 5.9 g/dl (6.4-8.2)
[2021-05-17 11:09] LABS: BILIRUBIN,TOTAL 1.6 mg/dL (0.2-1)
[2021-05-17] MEDS ORDERED: FENTANYL PATCH WASTE MC PRN (11:16)
[2021-05-17] MEDS ORDERED: LIDOCAINE VISCOUS 2% ORAL/TOP 15 ML UNIT-DOSE CUP MM PRN (11:19)
[2021-05-17] MEDS: ENOXAPARIN NA (PORCINE) 30 MG/0.3 ML DISP.SYRIN SQ SCH (11:24)
[2021-05-17] MEDS: amLODIPine BESYLATE 5 MG TABLET (FP) PO SCH (11:24)
[2021-05-17] MEDS: AZITHROMYCIN IVPB 500 MG/250 ML BAG IVPB SCH ×2 (11:25→12:44)
[2021-05-17] MEDS ORDERED: KCL 10 MEQ IVPB 10 MEQ/100 ML INFUS.BAG IVPB SCH (11:30)
[2021-05-17] MEDS ORDERED: fentaNYL 12mcg/hr PATCH.TD72 TD SCH (11:30)
[2021-05-17] MEDS ORDERED: VANCOMYCIN 1 GM in D5W (PRE-DOCKED) 1,000 MG/250 ML IVPB ONE (11:30)
[2021-05-17] MEDS: POLYETHYLENE GLYCOL 3350 119 GM BTL PO SCH (12:20)
[2021-05-17] MEDS: oxyCODONE HCL 5 MG TABLET PO PRN ×2 (14:11→19:48)
[2021-05-17] MEDS: ACETAMINOPHEN 325 MG TABLET (FP) PO PRN ×2 (14:12→19:48)
[2021-05-17] MEDS: KCL 10 MEQ IVPB 10 MEQ/100 ML INFUS.BAG IVPB SCH ×3 (16:25→19:47)
[2021-05-17] MEDS: FLUTICASONE/UMECLIDIN/VILANTER(100-62.5-25 TRELEGY ELLIPTA) INAHLER IH SCH (16:40)
[2021-05-17] MEDS: FERROUS SO4 325 MG TABLET (FP) PO SCH (17:54)
[2021-05-17] MEDS: SENNOSIDES 8.6MG TABLET (FP) PO SCH (21:26)
[2021-05-17] MEDS: DOCUSATE SODIUM 100 MG CAPSULE (FP) PO SCH (21:26)
[2021-05-18] MEDS ORDERED: PIPERACILLIN/TAZOBACTAM 3.375 GM VIAL IVPB ONE ×3 (01:22→18:08)
[2021-05-18] MEDS ORDERED: DEXTROSE 5%-WATER - 50 ML IVPB ONE ×3 (01:22→18:08)
[2021-05-18] MEDS: PIPERACILLIN/TAZOB 3.375 GM 3.375 GM in DEXTROSE 5%-WATER - 50 ML IVPB SCH ×3 (01:33→18:39)
[2021-05-18] MEDS: ACETAMINOPHEN 325 MG TABLET (FP) PO PRN ×4 (01:41→20:28)
[2021-05-18] MEDS: oxyCODONE HCL 5 MG TABLET PO PRN ×4 (01:50→20:27)
[2021-05-18] MEDS: FERROUS SO4 325 MG TABLET (FP) PO SCH ×2 (08:09→17:55)
[2021-05-18] MEDS ORDERED: fentaNYL 25mcg/hr PATCH.TD72 TD SCH (09:00)
[2021-05-18] MEDS: POLYETHYLENE GLYCOL 3350 119 GM BTL PO SCH (09:19)
[2021-05-18] MEDS: amLODIPine BESYLATE 5 MG TABLET (FP) PO SCH (09:19)
[2021-05-18] MEDS: ENOXAPARIN NA (PORCINE) 30 MG/0.3 ML DISP.SYRIN SQ SCH (09:20)
[2021-05-18] MEDS: DOCUSATE SODIUM 100 MG CAPSULE (FP) PO SCH ×2 (09:21→22:10)
[2021-05-18] MEDS: predniSONE 5 MG TABLET (UD) PO SCH (09:21)
[2021-05-18] MEDS: FLUTICASONE/UMECLIDIN/VILANTER(100-62.5-25 TRELEGY ELLIPTA) INAHLER IH SCH (09:33)
[2021-05-18] MEDS: FENTANYL PATCH WASTE MC PRN (10:26)
[2021-05-18 10:29] LABS: HEMATOCRIT 29.5 % (32.4-45.2); HEMOGLOBIN 9.1 GM/dL (10.7-15.3); MCH 23.4 pg (25.7-33.7); MCHC 30.7 g/dl (32.0-36.0); MEAN CELL VOLUME 76.4 fl (80-96); MEAN PLT VOLUME 8.5 fl (7.5-11.1); PLATELET COUNT 309 10^3/uL (134-434); RBC 3.87 M/mm3 (3.60-5.2); RDW 18.6 % (11.6-15.6); WHITE BLOOD COUNT 11.8 K/mm3 (4.0-10.0)
[2021-05-18 10:37] LABS: CALCIUM 9.3 mg/dL (8.5-10.1)
[2021-05-18 10:38] LABS: ALBUMIN 2.6 g/dl (3.4-5.0); BLOOD UREA NITROGEN 17.8 mg/dL (7-18); MAGNESIUM 2.1 mg/dL (1.8-2.4)
[2021-05-18 10:42] LABS: BILIRUBIN,TOTAL 0.3 mg/dL (0.2-1); CREATININE 0.5 mg/dL (0.55-1.3); TOT PROT 5.9 g/dl (6.4-8.2)
[2021-05-18] MEDS: SENNOSIDES 8.6MG TABLET (FP) PO SCH (22:10)
[2021-05-19] MEDS ORDERED: DEXTROSE 5%-WATER - 50 ML IVPB ONE ×3 (00:22→16:39)
[2021-05-19] MEDS ORDERED: PIPERACILLIN/TAZOBACTAM 3.375 GM VIAL IVPB ONE ×3 (00:22→16:39)
[2021-05-19] MEDS: oxyCODONE HCL 5 MG TABLET PO PRN ×5 (00:50→19:54)
[2021-05-19] MEDS: ACETAMINOPHEN 325 MG TABLET (FP) PO PRN ×4 (00:51→19:55)
[2021-05-19] MEDS: PIPERACILLIN/TAZOB 3.375 GM 3.375 GM in DEXTROSE 5%-WATER - 50 ML IVPB SCH ×3 (01:04→17:08)
[2021-05-19] MEDS: FERROUS SO4 325 MG TABLET (FP) PO SCH ×2 (08:00→17:08)
[2021-05-19] MEDS ORDERED: PT OWN MED DRAWER 7, Y5N ONE ×2 (09:33→17:11)
[2021-05-19] MEDS: amLODIPine BESYLATE 5 MG TABLET (FP) PO SCH (09:35)
[2021-05-19] MEDS: predniSONE 5 MG TABLET (UD) PO SCH (09:35)
[2021-05-19] MEDS: DOCUSATE SODIUM 100 MG CAPSULE (FP) PO SCH ×2 (09:35→21:33)
[2021-05-19] MEDS: POLYETHYLENE GLYCOL 3350 119 GM BTL PO SCH ×2 (09:36→10:00)
[2021-05-19] MEDS: ENOXAPARIN NA (PORCINE) 30 MG/0.3 ML DISP.SYRIN SQ SCH (09:40)
[2021-05-19] MEDS: FLUTICASONE/UMECLIDIN/VILANTER(100-62.5-25 TRELEGY ELLIPTA) INAHLER IH SCH (09:42)
[2021-05-19] MEDS: SENNOSIDES 8.6MG TABLET (FP) PO SCH (21:33)
[2021-05-20] MEDS: oxyCODONE HCL 5 MG TABLET PO PRN ×3 (00:54→08:45)
[2021-05-20] MEDS ORDERED: PIPERACILLIN/TAZOBACTAM 3.375 GM VIAL IVPB ONE ×3 (01:16→17:07)
[2021-05-20] MEDS ORDERED: DEXTROSE 5%-WATER - 50 ML IVPB ONE ×3 (01:16→17:08)
[2021-05-20] MEDS: PIPERACILLIN/TAZOB 3.375 GM 3.375 GM in DEXTROSE 5%-WATER - 50 ML IVPB SCH ×3 (01:20→18:03)
[2021-05-20] MEDS: FERROUS SO4 325 MG TABLET (FP) PO SCH ×2 (08:52→18:03)
[2021-05-20] MEDS: amLODIPine BESYLATE 5 MG TABLET (FP) PO SCH (09:01)
[2021-05-20] MEDS: predniSONE 5 MG TABLET (UD) PO SCH (09:01)
[2021-05-20] MEDS: ENOXAPARIN NA (PORCINE) 30 MG/0.3 ML DISP.SYRIN SQ SCH (09:03)
[2021-05-20] MEDS: POLYETHYLENE GLYCOL 3350 119 GM BTL PO SCH (09:03)
[2021-05-20] MEDS: DOCUSATE SODIUM 100 MG CAPSULE (FP) PO SCH ×2 (09:03→21:15)
[2021-05-20] MEDS: FLUTICASONE/UMECLIDIN/VILANTER(100-62.5-25 TRELEGY ELLIPTA) INAHLER IH SCH (09:04)
[2021-05-20 10:44] LABS: HEMATOCRIT 31.3 % (32.4-45.2); HEMOGLOBIN 9.6 GM/dL (10.7-15.3); MCH 23.2 pg (25.7-33.7); MCHC 30.6 g/dl (32.0-36.0); MEAN CELL VOLUME 75.9 fl (80-96); MEAN PLT VOLUME 8.2 fl (7.5-11.1); PLATELET COUNT 310 10^3/uL (134-434); RBC 4.13 M/mm3 (3.60-5.2); RDW 18.5 % (11.6-15.6); WHITE BLOOD COUNT 12.1 K/mm3 (4.0-10.0)
[2021-05-20] MEDS ORDERED: methylPREDNISolone NA SUCC 125 MG/2 ML VIAL IVPUSH ONE (10:46)
[2021-05-20] MEDS ORDERED: methylPREDNISolone NA SUCC 125 MG/2 ML VIAL ONE (10:49)
[2021-05-20] MEDS: FENTANYL PATCH WASTE MC PRN (10:53)
[2021-05-20] MEDS ORDERED: ALBUTEROL SO4 2.5/IPRATROPIUM 0.5 INH SOL 3 ML VIAL.NEB. NEB PRN (10:55)
[2021-05-20 11:10] LABS: CALCIUM 8.8 mg/dL (8.5-10.1)
[2021-05-20 11:11] LABS: ALBUMIN 2.8 g/dl (3.4-5.0); BLOOD UREA NITROGEN 12.2 mg/dL (7-18); MAGNESIUM 1.8 mg/dL (1.8-2.4)
[2021-05-20 11:14] LABS: CREATININE 0.5 mg/dL (0.55-1.3)
[2021-05-20 11:15] LABS: TOT PROT 6.2 g/dl (6.4-8.2)
[2021-05-20 11:16] LABS: BILIRUBIN,TOTAL 0.3 mg/dL (0.2-1)
[2021-05-20 11:57] LABS: ARTERIAL BLD GAS O2 SATURATION 99.3 % (95-98); ARTERIAL BLOOD GAS BASE EXCESS 10.3 mmol/L (-2-2); ARTERIAL BLOOD GAS PO2 223.3 mmHg (80-100); ARTERIAL BLOOD GAS pH 7.291 (7.350-7.450)
[2021-05-20 12:01] LABS: ALLENS TEST POSITIVE
[2021-05-20 12:02] LABS: VENT MODE IPPP10
[2021-05-20 12:03] LABS: VENT RATE 14
[2021-05-20] MEDS ORDERED: MAGNESIUM SULF 50% (8.12 MEQ/2 ML-1 GM VIAL) IVPB ONE (14:40)
[2021-05-20] MEDS ORDERED: ALBUTEROL SO4 HFA INHALER IH PRN (15:21)
[2021-05-20] MEDS ORDERED: LIDOCAINE VISCOUS 2% ORAL/TOP 15 ML UNIT-DOSE CUP MM PRN (15:21)
[2021-05-20] MEDS ORDERED: ACETAMINOPHEN 325 MG TABLET (FP) PO PRN (15:21)
[2021-05-20] MEDS ORDERED: FENTANYL PATCH WASTE MC PRN ×2 (15:21→15:31)
[2021-05-20] MEDS ORDERED: methylPREDNISolone NA SUCC 40 MG/1 ML VIAL IVPUSH SCH (16:00)
[2021-05-20] MEDS: fentaNYL 25mcg/hr PATCH.TD72 TD SCH (16:46)
[2021-05-20] MEDS: KCL 10 MEQ IVPB 10 MEQ/100 ML INFUS.BAG IVPB SCH ×3 (16:48→21:13)
[2021-05-20] MEDS ORDERED: LORazepam 2 MG/ML SDV VIAL IVPUSH PRN (16:52)
[2021-05-20] MEDS: methylPREDNISolone NA SUCC 40 MG/1 ML VIAL IVPUSH SCH (18:03)
[2021-05-20] MEDS: SENNOSIDES 8.6MG TABLET (FP) PO SCH (21:15)
[2021-05-21] MEDS ORDERED: PIPERACILLIN/TAZOBACTAM 3.375 GM VIAL IVPB ONE ×3 (00:55→17:44)
[2021-05-21] MEDS ORDERED: DEXTROSE 5%-WATER - 50 ML IVPB ONE ×3 (00:55→17:44)
[2021-05-21] MEDS: PIPERACILLIN/TAZOB 3.375 GM 3.375 GM in DEXTROSE 5%-WATER - 50 ML IVPB SCH ×3 (02:39→18:02)
[2021-05-21] MEDS: methylPREDNISolone NA SUCC 40 MG/1 ML VIAL IVPUSH SCH ×3 (02:39→18:19)
[2021-05-21] MEDS: oxyCODONE HCL 5 MG TABLET PO PRN ×4 (04:05→23:05)
[2021-05-21 07:51] LABS: HEMATOCRIT 29.2 % (32.4-45.2); MCH 23.6 pg (25.7-33.7); MCHC 30.7 g/dl (32.0-36.0); MEAN CELL VOLUME 76.9 fl (80-96); MEAN PLT VOLUME 7.8 fl (7.5-11.1); PLATELET COUNT 271 10^3/uL (134-434); WHITE BLOOD COUNT 7.7 K/mm3 (4.0-10.0)
[2021-05-21 08:06] LABS: MAGNESIUM 1.9 mg/dL (1.8-2.4)
[2021-05-21 08:07] LABS: CALCIUM 8.8 mg/dL (8.5-10.1)
[2021-05-21 08:10] LABS: CREATININE 0.5 mg/dL (0.55-1.3)
[2021-05-21] MEDS: FERROUS SO4 325 MG TABLET (FP) PO SCH ×2 (09:30→18:02)
[2021-05-21] MEDS: DOCUSATE SODIUM 100 MG CAPSULE (FP) PO SCH ×2 (09:30→21:28)
[2021-05-21] MEDS: amLODIPine BESYLATE 5 MG TABLET (FP) PO SCH (09:30)
[2021-05-21] MEDS: ENOXAPARIN NA (PORCINE) 30 MG/0.3 ML DISP.SYRIN SQ SCH (09:31)
[2021-05-21] MEDS ORDERED: POLYETHYLENE GLYCOL 3350 119 GM BTL PO SCH (10:00)
[2021-05-21] MEDS ORDERED: PT OWN MED DRAWER 7, Y5N ONE (10:40)
[2021-05-21] MEDS: POLYETHYLENE GLYCOL (HEALTHYLAX) 3350 17 GM PACKET PO SCH (12:19)
[2021-05-21] MEDS: FLUTICASONE/UMECLIDIN/VILANTER(100-62.5-25 TRELEGY ELLIPTA) INAHLER IH SCH (14:09)
[2021-05-21] MEDS: PANTOPRAZOLE 40 MG TABLET PO SCH (17:49)
[2021-05-21] MEDS: SENNOSIDES 8.6MG TABLET (FP) PO SCH (21:28)
[2021-05-22] MEDS ORDERED: DEXTROSE 5%-WATER - 50 ML IVPB ONE ×3 (00:03→17:41)
[2021-05-22] MEDS ORDERED: PIPERACILLIN/TAZOBACTAM 3.375 GM VIAL IVPB ONE ×3 (00:03→17:41)
[2021-05-22] MEDS: PIPERACILLIN/TAZOB 3.375 GM 3.375 GM in DEXTROSE 5%-WATER - 50 ML IVPB SCH ×3 (01:13→17:42)
[2021-05-22] MEDS: methylPREDNISolone NA SUCC 40 MG/1 ML VIAL IVPUSH SCH ×2 (01:13→09:30)
[2021-05-22] MEDS: oxyCODONE HCL 5 MG TABLET PO PRN ×2 (06:35→16:27)
[2021-05-22 07:37] LABS: HEMOGLOBIN 9.1 GM/dL (10.7-15.3); MCH 23.3 pg (25.7-33.7); MCHC 30.3 g/dl (32.0-36.0); MEAN PLT VOLUME 8.1 fl (7.5-11.1); PLATELET COUNT 290 10^3/uL (134-434); RBC 3.89 M/mm3 (3.60-5.2); RDW 18.2 % (11.6-15.6); WHITE BLOOD COUNT 21.6 K/mm3 (4.0-10.0)
[2021-05-22 08:13] LABS: CALCIUM 8.8 mg/dL (8.5-10.1)
[2021-05-22 08:17] LABS: CREATININE 0.4 mg/dL (0.55-1.3)
[2021-05-22] MEDS: POLYETHYLENE GLYCOL (HEALTHYLAX) 3350 17 GM PACKET PO SCH (09:29)
[2021-05-22] MEDS: DOCUSATE SODIUM 100 MG CAPSULE (FP) PO SCH (09:29)
[2021-05-22] MEDS: FERROUS SO4 325 MG TABLET (FP) PO SCH ×2 (09:29→17:42)
[2021-05-22] MEDS: ENOXAPARIN NA (PORCINE) 30 MG/0.3 ML DISP.SYRIN SQ SCH (09:30)
[2021-05-22] MEDS: PANTOPRAZOLE 40 MG TABLET PO SCH (09:30)
[2021-05-22] MEDS: amLODIPine BESYLATE 5 MG TABLET (FP) PO SCH (09:30)
[2021-05-22] MEDS: FLUTICASONE/UMECLIDIN/VILANTER(100-62.5-25 TRELEGY ELLIPTA) INAHLER IH SCH (09:30)
[2021-05-22] MEDS: LORazepam 0.5 MG TABLET PO PRN ×2 (09:31→21:22)
[2021-05-22 12:24] LABS: MAGNESIUM 2.2 mg/dL (1.8-2.4)
[2021-05-22] MEDS: POTASSIUM CHLORIDE ORAL LIQUID 20 MEQ/15 ML PO SCH ×2 (15:04→21:38)
[2021-05-22] MEDS: DEXAMETHASONE SOD PHOSPHATE 10 MG/1 ML VIAL IM SCH (15:04)
[2021-05-22] MEDS: AMINO ACIDS 4.25%/D5W 1,000 ML IV SCH (16:26)
[2021-05-22] MEDS: SENNOSIDES 8.6MG TABLET (FP) PO SCH (21:37)
[2021-05-23] MEDS: PIPERACILLIN/TAZOB 3.375 GM 3.375 GM in DEXTROSE 5%-WATER - 50 ML IVPB SCH ×3 (03:57→18:08)
[2021-05-23] MEDS: DOCUSATE SODIUM 100 MG CAPSULE (FP) PO SCH ×3 (05:17→22:03)
[2021-05-23 08:25] LABS: HEMATOCRIT 27.6 % (32.4-45.2); HEMOGLOBIN 8.1 GM/dL (10.7-15.3); MCH 23.3 pg (25.7-33.7); MCHC 29.2 g/dl (32.0-36.0); MEAN PLT VOLUME 8.3 fl (7.5-11.1); PLATELET COUNT 243 10^3/uL (134-434); RBC 3.45 M/mm3 (3.60-5.2); RDW 18.6 % (11.6-15.6)
[2021-05-23 08:31] LABS: CHLORIDE 85 mmol/L (98-107); SODIUM 133 mmol/L (136-145)
[2021-05-23 08:33] LABS: ALBUMIN 2.4 g/dl (3.4-5.0); BLOOD UREA NITROGEN 32.9 mg/dL (7-18); CALCIUM 8.1 mg/dL (8.5-10.1); CO2 41 mmol/L (21-32); GLUCOSE,RANDOM 340 mg/dL (74-106)
[2021-05-23 08:36] LABS: CREATININE 0.7 mg/dL (0.55-1.3); SGOT/AST 489 U/L (15-37); SGPT/ALT 215 U/L (13-61)
[2021-05-23 08:37] LABS: LDH 461 U/L (84-246)
[2021-05-23 08:38] LABS: BILIRUBIN,TOTAL 0.2 mg/dL (0.2-1); TOT PROT 5.6 g/dl (6.4-8.2)
[2021-05-23 08:41] LABS: ALK PHOS 166 U/L (45-117); ANION GAP 7 MMOL/L (8-16)
[2021-05-23] MEDS ORDERED: PT OWN MED DRAWER 7, Y5N ONE ×2 (09:15→19:38)
[2021-05-23] MEDS ORDERED: PIPERACILLIN/TAZOBACTAM 3.375 GM VIAL IVPB ONE ×2 (09:16→17:58)
[2021-05-23] MEDS ORDERED: DEXTROSE 5%-WATER - 50 ML IVPB ONE ×2 (09:17→17:58)
[2021-05-23 09:48] LABS: WHITE BLOOD COUNT 34.1 K/mm3 (4.0-10.0)
[2021-05-23] MEDS: KCL 10 MEQ IVPB 10 MEQ/100 ML INFUS.BAG IVPB SCH ×3 (10:05→15:11)
[2021-05-23 10:52] LABS: ERYTHROCYTE SEDIMENTATION RATE 10 mm/hr (0-30)
[2021-05-23] MEDS: ENOXAPARIN NA (PORCINE) 30 MG/0.3 ML DISP.SYRIN SQ SCH (10:52)
[2021-05-23] MEDS: DEXAMETHASONE SOD PHOSPHATE 10 MG/1 ML VIAL IM SCH ×2 (10:52→13:45)
[2021-05-23] MEDS: FERROUS SO4 325 MG TABLET (FP) PO SCH ×2 (10:54→17:30)
[2021-05-23] MEDS: POLYETHYLENE GLYCOL (HEALTHYLAX) 3350 17 GM PACKET PO SCH (10:54)
[2021-05-23] MEDS: PANTOPRAZOLE 40 MG TABLET PO SCH (10:55)
[2021-05-23] MEDS: amLODIPine BESYLATE 5 MG TABLET (FP) PO SCH (10:55)
[2021-05-23] MEDS: FLUTICASONE/UMECLIDIN/VILANTER(100-62.5-25 TRELEGY ELLIPTA) INAHLER IH SCH (11:51)
[2021-05-23] MEDS: DEXAMETHASONE SOD PHOSPHATE 10 MG/1 ML VIAL IVPUSH SCH (13:44)
[2021-05-23] MEDS: fentaNYL 25mcg/hr PATCH.TD72 TD SCH (15:30)
[2021-05-23] MEDS: AMINO ACIDS 4.25%/D5W 1,000 ML IV SCH (17:40)
[2021-05-23] MEDS: SENNOSIDES 8.6MG TABLET (FP) PO SCH (22:04)
[2021-05-23 23:22] VITALS: BMI 14.9
[2021-05-24] MEDS ORDERED: DEXTROSE 5%-WATER - 50 ML IVPB ONE ×2 (00:27→11:02)
[2021-05-24] MEDS ORDERED: PIPERACILLIN/TAZOBACTAM 3.375 GM VIAL IVPB ONE ×2 (00:27→11:01)
[2021-05-24] MEDS: ENOXAPARIN NA (PORCINE) 30 MG/0.3 ML DISP.SYRIN SQ SCH (11:15)
[2021-05-24] MEDS: amLODIPine BESYLATE 5 MG TABLET (FP) PO SCH (11:16)
[2021-05-24] MEDS: PIPERACILLIN/TAZOB 3.375 GM 3.375 GM in DEXTROSE 5%-WATER - 50 ML IVPB SCH (11:16)
[2021-05-24] MEDS: DOCUSATE SODIUM 100 MG CAPSULE (FP) PO SCH (11:16)
[2021-05-24] MEDS: PANTOPRAZOLE 40 MG TABLET PO SCH (11:16)
[2021-05-24] MEDS: FERROUS SO4 325 MG TABLET (FP) PO SCH (11:16)
[2021-05-24] MEDS: FLUTICASONE/UMECLIDIN/VILANTER(100-62.5-25 TRELEGY ELLIPTA) INAHLER IH SCH (11:17)
[2021-05-24] MEDS: POLYETHYLENE GLYCOL (HEALTHYLAX) 3350 17 GM PACKET PO SCH (11:25)
[2021-05-24] MEDS: DEXAMETHASONE SOD PHOSPHATE 10 MG/1 ML VIAL IVPUSH SCH (11:42)
[2021-05-24] MEDS ORDERED: LORazepam 2 MG/ML SDV VIAL IVPUSH ONE (15:15)
[2021-05-24] MEDS: KCL 10 MEQ IVPB 10 MEQ/100 ML INFUS.BAG IVPB SCH ×2 (17:47→22:59)
[2021-05-24 17:55] LABS: HEMATOCRIT 27.7 % (32.4-45.2); HEMOGLOBIN 8.1 GM/dL (10.7-15.3); MCH 22.9 pg (25.7-33.7); MCHC 29.3 g/dl (32.0-36.0); MEAN CELL VOLUME 78.3 fl (80-96); MEAN PLT VOLUME 8.4 fl (7.5-11.1); PLATELET COUNT 312 10^3/uL (134-434); RBC 3.54 M/mm3 (3.60-5.2); RDW 18.2 % (11.6-15.6)
[2021-05-24 18:02] LABS: WHITE BLOOD COUNT 30.7 K/mm3 (4.0-10.0)
[2021-05-24 18:16] LABS: ALBUMIN 2.6 g/dl (3.4-5.0)
[2021-05-24 18:19] LABS: CREATININE 0.5 mg/dL (0.55-1.3)
[2021-05-24 18:20] LABS: BILIRUBIN,TOTAL 0.2 mg/dL (0.2-1); TOT PROT 6.2 g/dl (6.4-8.2)
[2021-05-24 18:42] LABS: ERYTHROCYTE SEDIMENTATION RATE 65 mm/hr (0-30)
[2021-05-24] MEDS: AMINO ACIDS 4.25%/D5W 1,000 ML IV SCH (22:20)
[2021-05-25] MEDS: KCL 10 MEQ IVPB 10 MEQ/100 ML INFUS.BAG IVPB SCH ×3 (00:07→00:11)
[2021-05-25] MEDS: DOCUSATE SODIUM 100 MG CAPSULE (FP) PO SCH ×3 (00:08→21:36)
[2021-05-25] MEDS: SENNOSIDES 8.6MG TABLET (FP) PO SCH ×2 (00:09→21:36)
[2021-05-25] MEDS ORDERED: DEXTROSE 5%-WATER - 50 ML IVPB ONE ×3 (01:46→16:31)
[2021-05-25] MEDS ORDERED: PIPERACILLIN/TAZOBACTAM 3.375 GM VIAL IVPB ONE ×3 (01:46→16:31)
[2021-05-25] MEDS: LORazepam 2 MG/ML SDV VIAL IVPUSH PRN ×2 (01:50→12:28)
[2021-05-25] MEDS: PIPERACILLIN/TAZOB 3.375 GM 3.375 GM in DEXTROSE 5%-WATER - 50 ML IVPB SCH ×4 (01:51→21:34)
[2021-05-25] MEDS: FERROUS SO4 325 MG TABLET (FP) PO SCH ×3 (09:29→21:35)
[2021-05-25] MEDS: amLODIPine BESYLATE 5 MG TABLET (FP) PO SCH (09:29)
[2021-05-25] MEDS: POLYETHYLENE GLYCOL (HEALTHYLAX) 3350 17 GM PACKET PO SCH (09:29)
[2021-05-25] MEDS: PANTOPRAZOLE 40 MG TABLET PO SCH (09:29)
[2021-05-25] MEDS: AMINO ACIDS 4.25%/D5W 1,000 ML IV SCH ×3 (09:31→23:27)
[2021-05-25] MEDS ORDERED: PT OWN MED DRAWER 7, Y5N ONE (09:39)
[2021-05-25] MEDS: ENOXAPARIN NA (PORCINE) 30 MG/0.3 ML DISP.SYRIN SQ SCH (09:40)
[2021-05-25] MEDS: DEXAMETHASONE SOD PHOSPHATE 10 MG/1 ML VIAL IVPUSH SCH (09:40)
[2021-05-25 09:47] LABS: HEMATOCRIT 27.8 % (32.4-45.2); HEMOGLOBIN 8.4 GM/dL (10.7-15.3); MCH 23.8 pg (25.7-33.7); MCHC 30.3 g/dl (32.0-36.0); MEAN CELL VOLUME 78.4 fl (80-96); MEAN PLT VOLUME 8.4 fl (7.5-11.1); PLATELET COUNT 380 10^3/uL (134-434); RBC 3.55 M/mm3 (3.60-5.2); RDW 18.2 % (11.6-15.6); WHITE BLOOD COUNT 29.5 K/mm3 (4.0-10.0)
[2021-05-25 10:21] LABS: CALCIUM 9.6 mg/dL (8.5-10.1)
[2021-05-25 10:22] LABS: ALBUMIN 2.6 g/dl (3.4-5.0); BLOOD UREA NITROGEN 55.4 mg/dL (7-18)
[2021-05-25 10:23] LABS: BILIRUBIN,TOTAL 0.2 mg/dL (0.2-1)
[2021-05-25 10:25] LABS: CREATININE 0.5 mg/dL (0.55-1.3); TOT PROT 6.2 g/dl (6.4-8.2)
[2021-05-25] MEDS: FLUTICASONE/UMECLIDIN/VILANTER(100-62.5-25 TRELEGY ELLIPTA) INAHLER IH SCH (10:48)
[2021-05-25 11:26] LABS: ERYTHROCYTE SEDIMENTATION RATE 69 mm/hr (0-30)
[2021-05-26] MEDS ORDERED: PIPERACILLIN/TAZOBACTAM 3.375 GM VIAL IVPB ONE ×3 (00:57→17:47)
[2021-05-26] MEDS ORDERED: DEXTROSE 5%-WATER - 50 ML IVPB ONE ×3 (00:57→17:48)
[2021-05-26] MEDS: PIPERACILLIN/TAZOB 3.375 GM 3.375 GM in DEXTROSE 5%-WATER - 50 ML IVPB SCH ×3 (01:52→17:51)
[2021-05-26] MEDS: ENOXAPARIN NA (PORCINE) 30 MG/0.3 ML DISP.SYRIN SQ SCH (09:55)
[2021-05-26] MEDS: POLYETHYLENE GLYCOL (HEALTHYLAX) 3350 17 GM PACKET PO SCH (11:28)
[2021-05-26] MEDS: DOCUSATE SODIUM 100 MG CAPSULE (FP) PO SCH ×2 (11:28→21:46)
[2021-05-26] MEDS: FERROUS SO4 325 MG TABLET (FP) PO SCH ×2 (11:28→19:05)
[2021-05-26] MEDS: FLUTICASONE/UMECLIDIN/VILANTER(100-62.5-25 TRELEGY ELLIPTA) INAHLER IH SCH (11:29)
[2021-05-26] MEDS: PANTOPRAZOLE 40 MG TABLET PO SCH (11:29)
[2021-05-26] MEDS: amLODIPine BESYLATE 5 MG TABLET (FP) PO SCH (11:29)
[2021-05-26] MEDS ORDERED: PT OWN MED DRAWER 7, Y5N ONE (11:31)
[2021-05-26] MEDS: DEXAMETHASONE SOD PHOSPHATE 10 MG/1 ML VIAL IVPUSH SCH (11:33)
[2021-05-26 12:10] LABS: HEMATOCRIT 29.6 % (32.4-45.2); HEMOGLOBIN 8.4 GM/dL (10.7-15.3); MCH 23.1 pg (25.7-33.7); MCHC 28.4 g/dl (32.0-36.0); MEAN CELL VOLUME 81.2 fl (80-96); MEAN PLT VOLUME 8.4 fl (7.5-11.1); PLATELET COUNT 405 10^3/uL (134-434); RBC 3.64 M/mm3 (3.60-5.2); RDW 18.4 % (11.6-15.6); WHITE BLOOD COUNT 24.9 K/mm3 (4.0-10.0)
[2021-05-26 12:28] LABS: CHLORIDE 89 mmol/L (98-107); SODIUM 141 mmol/L (136-145)
[2021-05-26 12:32] LABS: ALBUMIN 2.7 g/dl (3.4-5.0); CALCIUM 9.7 mg/dL (8.5-10.1)
[2021-05-26 12:33] LABS: GLUCOSE,RANDOM 134 mg/dL (74-106)
[2021-05-26 12:35] LABS: SGPT/ALT 66 U/L (13-61)
[2021-05-26 12:36] LABS: CREATININE 0.9 mg/dL (0.55-1.3); SGOT/AST 25 U/L (15-37)
[2021-05-26 12:37] LABS: BILIRUBIN,TOTAL 0.3 mg/dL (0.2-1); TOT PROT 6.2 g/dl (6.4-8.2)
[2021-05-26 12:38] LABS: ALK PHOS 147 U/L (45-117)
[2021-05-26 12:39] LABS: ANION GAP 6 MMOL/L (8-16); CO2 > 45 mmol/L (21-32)
[2021-05-26 13:54] LABS: ERYTHROCYTE SEDIMENTATION RATE 62 mm/hr (0-30)
[2021-05-26] MEDS: fentaNYL 25mcg/hr PATCH.TD72 TD SCH (17:51)
[2021-05-26] MEDS ORDERED: SODIUM CHLORIDE 0.9% 500 ML INFUS.BAG IV ONE (20:28)
[2021-05-26] MEDS: SENNOSIDES 8.6MG TABLET (FP) PO SCH (21:46)
[2021-05-26] MEDS ORDERED: SODIUM CHLORIDE 500 ML IV STA (21:51)
[2021-05-26] MEDS ORDERED: SODIUM CHLORIDE 1,000 ML IV SCH (23:30)
[2021-05-26] MEDS: AMINO ACIDS 4.25%/D5W 1,000 ML IV SCH (23:57)
[2021-05-27] MEDS ORDERED: SODIUM CHLORIDE 500 ML IV STA ×4 (00:54→04:08)
[2021-05-27] MEDS ORDERED: PIPERACILLIN/TAZOBACTAM 3.375 GM VIAL IVPB ONE (01:08)
[2021-05-27] MEDS ORDERED: DEXTROSE 5%-WATER - 50 ML IVPB ONE (01:08)
[2021-05-27] MEDS: PIPERACILLIN/TAZOB 3.375 GM 3.375 GM in DEXTROSE 5%-WATER - 50 ML IVPB SCH (01:18)
[2021-05-27 05:55] VITALS: TEMP 98.7
[2021-05-27 06:14] VITALS: BP 59/32; PULSE 85
== END 2021-05-27 10:12 | disposition expired | DRG 871 ==
LOC: JER 14:28 → J6S 18:54 → J4W 05-20 14:39 → J5S 05-24 13:17
PROVIDERS: ADMIT Internal Medicine
DX: A41.9 Sepsis, unspecified organism (principal); J18.1 Lobar pneumonia, unspecified organism; U07.1 COVID-19; J96.01 Acute respiratory failure with hypoxia; J96.02 Acute respiratory failure with hypercapnia; E43 Unspecified severe protein-calorie malnutrition; J12.82 Pneumonia due to coronavirus disease 2019; J44.1 Chronic obstructive pulmonary disease with (acute) exacerbation; N17.9 Acute kidney failure, unspecified; J44.0 Chronic obstructive pulmonary disease with (acute) lower respiratory infection; J98.11 Atelectasis; C78.7 Secondary malignant neoplasm of liver and intrahepatic bile duct; R64 Cachexia; N13.30 Unspecified hydronephrosis; Z68.1 Body mass index [BMI] 19.9 or less, adult; I12.9 Hypertensive chronic kidney disease with stage 1 through stage 4 chronic kidney disease, or unspecified chronic kidney disease; D50.9 Iron deficiency anemia, unspecified; N18.9 Chronic kidney disease, unspecified; Z99.81 Dependence on supplemental oxygen; R63.0 Anorexia; I95.9 Hypotension, unspecified
CPT/HCPCS: 36415; 36600; 70450-TC; 70496-TC; 71045-TC-FY; 76775-TC; 80048; 80053; 81003; 82272; 82550; 82728; 82803; 83540; 83550; 83615; 83735; 84484; 85025; 85027; 85045; 85379; 85651; 86140; 87040; 87070; 87077; 87086; 87186; 87205; 87804; 93005; 93010; 94660; 99285-25; C9803; J1100; Q3014-GT; Q9967; U0003; U0005